=== PATIENT | female | born 1940 | race Caucasian/White ===

== ENCOUNTER 2023-02-05 10:39 | Emergency (ER) | payer MEDICARE, SELFPAY ==
--- NOTE | ~2023-02-05 | XR_ITS ---
EXAMINATION: XR CHEST CLINICAL INFORMATION: Chest trauma. COMPARISON: None available. TECHNIQUE: Frontal view of the chest was obtained. FINDINGS: The lungs show coarse interstitial markings bilaterally without focal infiltrate or pneumothorax. The heart and mediastinal structures are unremarkable. There is a moderate-sized hiatal hernia. XR/XR chest 1V IMPRESSION: No acute cardiopulmonary process. No overt evidence for acute traumatic injury.
--- NOTE | ~2023-02-05 | XR_ITS ---
EXAMINATION: Right clavicle and right humerus x-rays CLINICAL INFORMATION: Fall COMPARISON: None. TECHNIQUE: 2 views of the right humerus and 2 views of the right clavicle FINDINGS: Right humerus: The bones are osteopenic. No humeral fracture or dislocation. Nondisplaced distal clavicle fracture. The humeral head appears high with respect to the glenoid questionable for rotator cuff disease. There is arthritis at the acromioclavicular joint. The elbow joint is normal. Soft tissues are normal. Right clavicle: There is a nondisplaced fracture of the distal clavicle. This may be slightly comminuted. There is mild arthritis at the acromioclavicular joint. The bones are osteopenic. There is soft tissue swelling adjacent to the fracture. XR/XR clavicle RT IMPRESSION: Nondisplaced distal clavicle fracture. Arthritis at the acromioclavicular joint. High humeral head questionable for rotator cuff disease. Osteopenia.
--- NOTE | ~2023-02-05 | CT_ITS ---
EXAMINATION: CT HEAD WITHOUT CONTRAST CT CERVICAL SPINE WITHOUT CONTRAST CLINICAL INFORMATION: Status post head trauma COMPARISON: None TECHNIQUE: CT of the head and cervical spine were performed without intravenous contrast. Multiplanar reformats were rendered and reviewed. This CT examination was performed using dose optimization techniques as appropriate, variously including the following: *Automated exposure control *Adjustment of mA and/or kV according to patient size (this includes techniques or standardized protocols for targeted exams where dose is matched to indication/reason for exam; i.e. extremities or head) *Use of iterative reconstruction technique DLP: 621 mGy-cm. FINDINGS: CT head: No intracranial hemorrhage, large infarction, or mass lesion is seen. No extra-axial collection is appreciated. The ventricles and sulci are prominent due to global volume loss and there are patchy periventricular white matter changes as a sequela of microangiopathy. The visualized paranasal sinuses and mastoid air cells are clear. CT cervical spine: The cervical alignment is normal. The craniocervical junction is normal. The vertebral body heights are maintained. No cervical spine fracture is seen. There are multilevel degenerative changes with narrowing of C3-C4, C4-C5, C5-C6, C7-T1 without spondylolysis or listhesis. There is no spinal canal stenosis. Marginal spurring is present. The paraspinal soft tissues are within normal limits. The partially imaged lung apices reveal changes of emphysema and COPD with reticulation . CT/CT head/brain wo IV con IMPRESSION: CT HEAD: No acute intracranial finding. Sequela of microangiopathy and global volume loss CT CERVICAL SPINE: No cervical spine fracture or traumatic malalignment identified. Degenerative changes.
--- NOTE | ~2023-02-05 | XR_ITS ---
EXAMINATION: Right clavicle and right humerus x-rays CLINICAL INFORMATION: Fall COMPARISON: None. TECHNIQUE: 2 views of the right humerus and 2 views of the right clavicle FINDINGS: Right humerus: The bones are osteopenic. No humeral fracture or dislocation. Nondisplaced distal clavicle fracture. The humeral head appears high with respect to the glenoid questionable for rotator cuff disease. There is arthritis at the acromioclavicular joint. The elbow joint is normal. Soft tissues are normal. Right clavicle: There is a nondisplaced fracture of the distal clavicle. This may be slightly comminuted. There is mild arthritis at the acromioclavicular joint. The bones are osteopenic. There is soft tissue swelling adjacent to the fracture. XR/XR humerus RT IMPRESSION: Nondisplaced distal clavicle fracture. Arthritis at the acromioclavicular joint. High humeral head questionable for rotator cuff disease. Osteopenia.
--- NOTE | ~2023-02-05 | CT_ITS ---
EXAMINATION: CT HEAD WITHOUT CONTRAST CT CERVICAL SPINE WITHOUT CONTRAST CLINICAL INFORMATION: Status post head trauma COMPARISON: None TECHNIQUE: CT of the head and cervical spine were performed without intravenous contrast. Multiplanar reformats were rendered and reviewed. This CT examination was performed using dose optimization techniques as appropriate, variously including the following: *Automated exposure control *Adjustment of mA and/or kV according to patient size (this includes techniques or standardized protocols for targeted exams where dose is matched to indication/reason for exam; i.e. extremities or head) *Use of iterative reconstruction technique DLP: 621 mGy-cm. FINDINGS: CT head: No intracranial hemorrhage, large infarction, or mass lesion is seen. No extra-axial collection is appreciated. The ventricles and sulci are prominent due to global volume loss and there are patchy periventricular white matter changes as a sequela of microangiopathy. The visualized paranasal sinuses and mastoid air cells are clear. CT cervical spine: The cervical alignment is normal. The craniocervical junction is normal. The vertebral body heights are maintained. No cervical spine fracture is seen. There are multilevel degenerative changes with narrowing of C3-C4, C4-C5, C5-C6, C7-T1 without spondylolysis or listhesis. There is no spinal canal stenosis. Marginal spurring is present. The paraspinal soft tissues are within normal limits. The partially imaged lung apices reveal changes of emphysema and COPD with reticulation . CT/CT cervical spine wo IV con IMPRESSION: CT HEAD: No acute intracranial finding. Sequela of microangiopathy and global volume loss CT CERVICAL SPINE: No cervical spine fracture or traumatic malalignment identified. Degenerative changes.
--- NOTE | ~2023-02-05 | XR_ITS ---
EXAMINATION: XR SACRUM AND COCCYX CLINICAL INFORMATION: Fall COMPARISON: None available. TECHNIQUE: 2 views of the sacrum and 2 views of the coccyx were obtained. FINDINGS: Exam is limited due to overlying bowel gas and light film technique. No fracture is appreciated. The bones are osteopenic. There is mild anterior subluxation of L4 with respect L5. There are degenerative changes of the visualized lower lumbar spine and hip joints. XR/XR sacrum coccyx min 2V IMPRESSION: Limited exam. No fracture seen.
[2023-02-05 10:49] VITALS: BP 135/50; PULSE 67; O2SAT 96
[2023-02-05 11:14] VITALS: BP 133/61; PULSE 66; RESP 19; TEMP 36.8; O2SAT 96; BMI 18.6
--- OUTSIDE RECORDS SUMMARY | 2023-02-05 11:16 | XMS_ITS | Continuity of Care Document ---
Author Name Unknown Organization [facility] Address [address] [place] [address]- Care Team Providers Care Welding Technician Name Role Phone Mary SHAY, Bridgette Archibald Primary Care Physic payal [place] [facility] [place] 11/26/20 - 12/26/20 [facility] [address] [place] [address]- Attending Physician: Rubens Pinto Admitting Physician: AdmRubens herrera Referring Physician: AdmtrRubens Allergies, Adverse Reactions, Alerts Substance Reaction Severity Status Augmentin nausea Active Immunizations Given and Recorded Vaccine Date Status Refusal Reason SARS-CoV-2 (COVID-19) mRNA BNT-162b2 vac 08/16/20 Recorded SARS-CoV-2 (COVID-19) mRNA BNT-162b2 vac 07/26/20 Recorded influenza virus vaccine, inactivated 1 04/19/20 Gi mae influenza virus vaccine, inactivated 2 04/26/19 Gi mae influenza virus vaccine, inactivated 3 05/02/18 Gi mae influenza virus vaccine, inactivated 4 05/31/17 Gi mae influenza virus vaccine, inactivated 04/13/16 Give n influenza virus vaccine, inactivated 04/05/15 Give n influenza virus vaccine, inactivated 5 03/16/14 Gi mae influenza virus vaccine, inactivated 04/15/12 Give n tetanus/diphtheria/pertussis, acel(Tdap) 11/25/16 Given pneumococcal 13-valent vaccine 04/13/16 Given Zoster Vaccine Live 6 07/01/15 Given pneumococcal 23-valent vaccine 07/30/12 Given Influenza Inactive (IM) (oldterm) 7 04/28/08 Given Pneumococcal Vaccine (oldterm) 11/05/06 Given Tetanus Toxoid Vaccine (oldterm) 06/21/01 Given 1Result Comment: [facility]: [id number] 2Result Comment: [facility] [id number] 3Result Comment: [05/02/2018] [facility] # [id number] 4Result Comment: [05/31/2017] [facility] [id number] 5Result Comment: [03/16/2014] Dr. Duffy 6Result Comment: [07/01/2015] diluent [id number] 08/24/17 Merck 7Admin Note: rcvd elsewhere Medications Advair Diskus 250 mcg-50 mcg inhalation powder 1, puffs, Inhalation, 2 times a day, # 180 each, Refills 1, Tot. Refills 1, Maintenance, 10/03/20 12:43:00 EDT, Route to Pharmacy Electronically, [id number], [facility]/pharmacy #[id number], 160.5, cm, 04/19/20 11:16:00 EDT, Height, 55.6,... Start Date: 10/03/20 Stop Date: 04/01/21 Status: Ordered albuterol 0.083% inhalation solution 3 mL = 2.5 mg, Inhalation, Every 6 hours, DX: J45.909, # 60 each, 0 Refills, Maintenance, 08/25/19 10:27:00 EST, Solution, [facility]/pharmacy #[id number], 160.5, cm, 07/19/19 13:59:00 EST, Height, 55.6, kg, 03/15/19 15:53:00 EDT, Dry Weight Start Date: 08/25/19 Status: Ordered Bactrim DS 800 mg-160 mg oral tablet 1 tablet, By Mouth, Once, after procdeure today-, # 1 tablet, 0 Refills, Soft Stop, 12/24/20 12:01:00 EDT, Partial fill upon patient request if the prescription is for a schedule II opioid drug. Start Date: 12/24/20 Status: Ordered citalopram 20 mg oral tablet 20 mg, 1, tablet, By Mouth, Daily, # 90 tablet, Refills 1, Tot. Refills 1, Maintenance, 09/30/20 11:37:00 EDT, Route to Pharmacy Electronically, [facility]/pharmacy #[id number], 160.5, cm, 04/19/20 11:16:00 EDT, Height, 55.6, kg, 03/15/19 15:53:00 EDT, Dry Weight Start Date: 09/30/20 Status: Ordered diclofenac 1% topical gel 1 application, Topically, 4 times a day, PRN for pain, # 100 Gm, 0 Refills, Maintenance, 12/11/20 15:05:00 EDT, Gel, Partial fill upon patient request if the prescription is for a schedule II opioid drug. Start Date: 12/11/20 Status: Ordered Diltiazem CD Capsule 240 mg, By Mouth, Daily, Maintenance, 12/04/13 14:47:28 EDT Start Date: 12/04/13 Status: Ordered Eliquis 5 mg oral tablet 1 tablet = 5 mg, By Mouth, 2 times a day, # 60 tablet, 0 Refills, Maintenance, 10/03/20 11:30:00 EDT, Tablet, Partial fill upon patient request if the prescription is for a schedule II opioid drug. Start Date: 10/03/20 Status: Ordered famotidine 20 mg oral tablet 20 mg, 1, tablet, By Mouth, Daily at bedtime, # 90 tablet, Refills 0, Tot. Refills 0, Maintenance, 12/11/20 15:53:00 EDT, Route to Pharmacy Electronically, [facility]/pharmacy #[id number], Partial fill upon patient request if the prescription is for a schedule II... Start Date: 12/11/20 Status: Ordered loratadine 10 mg oral tablet 10 mg, 1, tablet, By Mouth, Daily, # 90 tablet, Refills 0, Tot. Refills 0, Maintenance, 11/28/20 9:28:00 EDT, Route to Pharmacy Electronically, [facility]/pharmacy #[id number], 160.5, cm, 11/26/20 11:39:00 EDT, Height, 55.6, kg, 03/15/19 15:53:00 EDT, Dry Weight Start Date: 11/28/20 Status: Ordered losartan 25 mg oral tablet 25 mg, 1, tablet, By Mouth, Daily, # 90 tablet, Refills 0, Tot. Refills 0, Maintenance, 11/29/20 14:27:00 EDT, Route to Pharmacy Electronically, [facility]/pharmacy #[id number], Appointment, 160.5, cm, 11/26/20 11:39:00 EDT, Height, 55.6, kg, 03/15/19 15:53:00 EDT... Start Date: 11/29/20 Status: Ordered metoprolol 25 mg oral tablet 25 mg, 1, tablet, By Mouth, 2 times a day, # 60 tablet, Refills 0, Tot. Refills 0, Maintenance, 12/11/20 15:48:00 EDT, Do Not Route, Partial fill upon patient request if the prescription is for a schedule II opioid drug. Start Date: 12/11/20 Status: Ordered Multivitamin Daily, 0 Refills, Maintenance, 12/11/20 15:05:00 EDT, Partial fill upon patient request if the prescription is for a schedule II opioid drug. Start Date: 12/11/20 Status: Ordered Protonix 40 mg oral delayed release tablet 1 tablet = 40 mg, By Mouth, Daily, # 90 tablet, 0 Refills, Maintenance, 09/30/20 14:59:00 EDT, EC Tablet, 160.5, cm, 04/19/20 11:16:00 EDT, Height, 55.6, kg, 03/15/19 15:53:00 EDT, Dry Weight Start Date: 09/30/20 Status: Ordered Spiriva HandiHaler 18 mcg inhalation capsule 1 capsule = 18 mcg, Inhalation, Daily, # 90 capsule, 0 Refills, Maintenance, 11/29/20 14:28:00 EDT,[facility]/pharmacy #[id number], 160.5, cm, 11/26/20 11:39:00 EDT, Height, 55.6, kg, 03/15/19 15:53:00 EDT, Dry Weight Start Date: 11/29/20 Status: Ordered Vitamin D3 = 1,000 International_Units, By Mouth, 0 Refills, Maintenance, 11/22/15 14:34:08 Start Date: 11/22/15 Status: Ordered Problem List Condition Effective Dates Status Health Status Inform ant Allergic rhinitis(Confirmed) Active Anxiety(Confirmed) Active Asthma(Confirmed) Active Atrial fibrillation and flutter(Confirmed) Active Hiatal hernia with gastroeso phageal reflux(Confirmed) Active H/O sebaceous cyst(Confirmed) Active Abdominal hernia(Confirmed) Active History of basal cell carcin essie of skin(Confirmed) 1 Active h/o Hypertension(Confirmed) Active 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 2013(Confirmed) 10/02/13 Active Osteoporosis(Confirmed) Active Hx of breast cancer(Confirmed) 2 10/2013 Active Wrist injury(Confirmed) Active 1Dermatologist is [place] [facility] 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, T2 N0, ER positive, [place] negative, 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 Social History Social History Type Response Smoking Status Former smoker; Tobac co user in household: No; Other: Quit 30 years ago; Started at 16 YO 1/2 pack daily; entered on: 05/31/17 Sex
--- OUTSIDE RECORDS SUMMARY | 2023-02-05 11:16 | XMS_ITS | Continuity of Care Document ---
Author Name Unknown Organization [facility] Address [address] [place] [address]- Care Team Providers Care Privacy Manager Name Role Phone Mary SHAY, Bridgette Archibald Primary Care Physic payal Encounter [facility] Date(s): 04/24/21 - 05/24/21 [facility] [address] [place] [address]- [place] Attending Physician: Rubens Pinto Admitting Physician: AdmRubens herrera Referring Physician: AdmtrRubens Allergies, Adverse Reactions, Alerts Substance Reaction Severity Status Augmentin nausea Active Immunizations Given and Recorded Vaccine Date Status Refusal Reason SARS-CoV-2 (COVID-19) mRNA BNT-162b2 vac 1 04/24/21 Given SARS-CoV-2 (COVID-19) mRNA BNT-162b2 vac 08/16/20 Recorded SARS-CoV-2 (COVID-19) mRNA BNT-162b2 vac 07/26/20 Recorded influenza virus vaccine, inactivated 2 04/24/21 Gi mae influenza virus vaccine, inactivated 3 04/19/20 Gi mae influenza virus vaccine, inactivated 4 04/26/19 Gi mae influenza virus vaccine, inactivated 5 05/02/18 Gi mae influenza virus vaccine, inactivated 6 05/31/17 Gi mae influenza virus vaccine, inactivated 04/13/16 Give n influenza virus vaccine, inactivated 04/05/15 Give n influenza virus vaccine, inactivated 7 03/16/14 Gi mae influenza virus vaccine, inactivated 04/15/12 Give n tetanus/diphtheria/pertussis, acel(Tdap) 11/25/16 Given pneumococcal 13-valent vaccine 04/13/16 Given Zoster Vaccine Live 8 07/01/15 Given pneumococcal 23-valent vaccine 2/9/13 Given Influenza Inactive (IM) (oldterm) 9 04/28/08 Given Pneumococcal Vaccine (oldterm) 11/05/06 Given Tetanus Toxoid Vaccine (oldterm) 06/21/01 Given 1Result Comment: [facility]: [id number] 2Result Comment: [facility]: [id number] 3Result Comment: [facility]: [id number] 4Result Comment: [facility] [id number] 5Result Comment: [05/02/2018] [facility] # [id number] 6Result Comment: [05/31/2017] [facility] [id number] 7Result Comment: [03/16/2014] Dr. Duffy 8Result Comment: [07/01/2015] diluent [id number] 08/24/17 Merck 9Admin Note: rcvd elsewhere Medications albuterol 0.083% inhalation solution 3 mL = 2.5 mg, Inhalation, Every 6 hours, DX: J45.909, # 60 each, 0 Refills, Maintenance, 08/25/19 10:27:00 EST, Solution, [facility]/pharmacy #[id number], 160.5, cm, 07/19/19 13:59:00 EST, Height, 55.6, kg, 03/15/19 15:53:00 EDT, Dry Weight Start Date: 08/25/19 Status: Ordered Azithromycin 5 Day Dose Pack 250 mg oral tablet 1 pack/packet, By Mouth, Once, # 6 tablet, 0 Refills, Soft Stop, 04/10/21 16:39:00 EDT, Tablet, [facility]/pharmacy #[id number], Partial fill upon patient request if the prescription is for a schedule II opioid drug., 160, cm, 01/20/21 14:22:00 EDT, Height, 63, kg... Start Date: 04/10/21 Status: Ordered Bactrim DS 800 mg-160 mg oral tablet 1 tablet, By Mouth, Once, after procdeure today-, # 1 tablet, 0 Refills, Soft Stop, 12/24/20 12:01:00 EDT, Partial fill upon patient request if the prescription is for a schedule II opioid drug. Start Date: 12/24/20 Status: Ordered cetirizine 10 mg oral tablet 1 tablet = 10 mg, By Mouth, Daily, # 30 tablet, 1 Refills, Maintenance, 04/22/21 15:35:00 EDT, Tablet, [facility]/pharmacy #[id number], Partial fill upon patient request if the prescription is for a schedule II opioid drug., 160, cm, 01/20/21 14:22:00 EDT, Height,... Start Date: 04/22/21 Status: Ordered citalopram 20 mg oral tablet 20 mg, 1, tablet, By Mouth, Daily, # 90 tablet, Refills 1, Tot. Refills 1, Maintenance, 03/26/21 14:13:00 EDT, Route to Pharmacy Electronically, [facility]/pharmacy #[id number], 160, cm, 01/20/21 14:22:00 EDT, Height, 63, kg, 12/12/20 13:26:00 EDT, Dry Weight Start Date: 03/26/21 Status: Ordered diclofenac 1% topical gel 1 [...] 12/11/20 15:53:00 EDT, [id number], Partial fill upon patient request if the prescription is for a schedule II... Start Date: 12/11/20 Status: Ordered loratadine 10 mg oral tablet 10 mg, 1, tablet, By Mouth, Daily, # 90 tablet, Refills 0, Tot. Refills 0, Maintenance, 11/28/20 9:28:00 EDT, [id number], 160.5, cm, 11/26/20 11:39:00 EDT, Height, 55.6, kg, 03/15/19 15:53:00 EDT, Dry Weight Start Date: 11/28/20 Status: Ordered losartan 25 mg oral tablet 25 mg, 1, tablet, By Mouth, Daily, # 90 tablet, Refills 1, Tot. Refills 1, Maintenance, 03/26/21 13:41:00 EDT, [id number] Appointment, 160, cm, 01/20/21 14:22:00 EDT, Height, 63, kg, 12/12/20 13:26:00 EDT, . Start Date: 03/26/21 Status: Ordered metoprolol 25 mg oral tablet [...] Daily, # 90 tablet, 0 Refills, Maintenance, 04/02/21 9:49:00 EDT, EC Tablet, 160, cm, 01/20/21 14:22:00 EDT, Height, 63, kg, 12/12/20 13:26:00 EDT, Dry Weight Start Date: 04/02/21 Status: Ordered Spiriva HandiHaler 18 mcg inhalation capsule 1 capsule = 18 mcg, Inhalation, Daily, # 90 capsule, 0 Refills, Maintenance, 04/09/21 14:31:00 EDT,[facility]/pharmacy #[id number], 160, cm, 01/20/21 14:22:00 EDT, Height, 63, kg, 12/12/20 13:26:00 EDT, Dry Weight Start Date: 04/09/21 Status: Ordered Vitamin D3 = 1,000 International_Units, [...] infiltrating ductal carcinoma, T2 N0, ER positive, [place]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 2013(Confirmed) 10/02/13 Active Osteoporosis(Confirmed) Active Hx of breast cancer(Confirmed) 2 10/2013 Active Wrist injury(Confirmed) Active 1Dermatologist is [place] [facility] 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, T2 N0, ER positive, [place] negative, 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 Social History Social History Type Response Smoking Status Former smoker; Tobac co user in household: No; Other: Quit 30 years ago; Started at 16 YO 1/2 pack daily; entered on: 05/31/17 Sex
--- OUTSIDE RECORDS SUMMARY | 2023-02-05 11:16 | XMS_ITS | Continuity of Care Document ---
Author Name Unknown Organization [facility] Address [address] [place] [address]- Care Team Providers Care Fruit And Vegetable Parer Name Role Phone Mary SHAY, Bridgette Archibald Primary Care Physic payal Encounter [facility] Date(s): 11/16/20 - 11/23/20 [facility] [address] [place] [address]- [place] Encounter Diagnosis Tick bite(Discharge Diagnosis) - 11/16/20 Attending Physician: Susu Chavez Referring Physician: Mary SHAY, Bridgette Archibald Allergies, Adverse Reactions, Alerts Substance Reaction Severity Status Augmentin nausea Active Immunizations Given and Recorded Vaccine Date Status Refusal Reason influenza virus vaccine, inactivated 1 04/19/20 Gi [...] Toxoid Vaccine (oldterm) 06/21/01 Given 1Result Comment: [facility]: [id number] 2Result Comment: [facility] [id number] 3Result Comment: [05/02/2018] [facility] # [id number] 4Result Comment: [05/31/2017] [facility] [id number] 5Result Comment: [03/16/2014] Dr. Duffy 6Result Comment: [07/01/2015] diluent [id number] 08/24/17 Merck 7Admin Note: rcvd elsewhere Medications Advair Diskus 250 mcg-50 mcg inhalation powder 1, puffs, Inhalation, 2 times a day, # 180 each, Refills 1, Tot. Refills 1, Maintenance, 10/03/20 12:43:00 EDT, Route to Pharmacy Electronically, [id number], [facility]/pharmacy #[id number], 160.5, cm, 04/19/20 11:16:00 EDT, Height, 55.6,... Start Date: 10/03/20 Stop Date: 04/01/21 Status: Ordered albuterol 0.083% inhalation solution 3 mL = 2.5 mg, Inhalation, Every 6 hours, DX: J45.909, # 60 each, 0 Refills, Maintenance, 08/25/19 10:27:00 EST, Solution, [facility]/pharmacy #[id number], 160.5, cm, 07/19/19 13:59:00 EST, Height, 55.6, kg, 03/15/19 15:53:00 EDT, Dry Weight Start Date: 08/25/19 Status: Ordered barium sulfate 2% oral suspension See Instructions, dispense two 450 mg bottles. Drink one 450 ml bottle at 8am, and one 450 mL bottle 90 minutes prior to procedure., # 900 mL, 0 Refills, Maintenance, 06/05/19 15:49:07 EST, [facility]/pharmacy #[id number], dispense two 450 mg bottles. ; Drink on... Start Date: 06/05/19 Status: Ordered Breo Ellipta 100 mcg-25 mcg/inh inhalation powder 1 puffs, Inhalation, Daily, # 30 each, 5 Refills, Maintenance, 06/04/20 9:31:00 EST, Powder, [id number], Substitute for Advair RX, 1 puffs Inhalation Daily, 160.5, cm, 04/19/20 11:16:00 EDT, Height, 55.6, kg, 03/15/19 15:53:00 EDT, Dry Weight Start Date: 06/04/20 Status: Ordered citalopram 20 mg oral tablet 20 mg, 1, tablet, By Mouth, Daily, # 90 tablet, Refills 1, Tot. Refills 1, Maintenance, 09/30/20 11:37:00 EDT, Route to Pharmacy Electronically, [facility]/pharmacy #[id number], 160.5, cm, 04/19/20 11:16:00 EDT, Height, 55.6, kg, 03/15/19 15:53:00 EDT, Dry Weight Start Date: 09/30/20 Status: Ordered Diltiazem CD Capsule 240 mg, By Mouth, Daily, Maintenance, 12/04/13 14:47:28 EDT Start Date: 12/04/13 Status: Ordered doxycycline hyclate 100 mg oral capsule See Instructions, 2 capsules by mouth for 1 dose, # 2 capsule, 0 Refills, Maintenance, 11/16/20 12:26:00 EDT, [facility]/pharmacy #[id number], Partial fill upon patient request if the prescription is for a schedule II opioid drug., 160.5, cm, 11/16/20 12:07:00 EDT... Start Date: 11/16/20 Status: Ordered Eliquis 5 mg oral tablet 1 tablet = 5 mg, By Mouth, 2 times a day, # 60 tablet, 0 Refills, Maintenance, 10/03/20 11:30:00 EDT, Tablet, Partial fill upon patient request if the prescription is for a schedule II opioid drug. Start Date: 10/03/20 Status: Ordered Home Medications Maintenance, 07/13/19 13:26:00 EST Start Date: 07/13/19 Status: Ordered loratadine 10 mg oral tablet 10 mg, 1, tablet, By Mouth, Daily, # 90 tablet, Refills 1, Tot. Refills 1, Maintenance, 04/19/20 12:01:00 EDT, Route to Pharmacy Electronically, [facility]/pharmacy #[id number], 160.5, cm, 04/19/20 11:16:00 EDT, Height, 55.6, kg, 03/15/19 15:53:00 EDT, Dry Weight Start Date: 04/19/20 Status: Ordered losartan 25 mg oral tablet 25 mg, 1, tablet, By Mouth, Daily, # 90 tablet, Refills 3, Tot. Refills 3, Maintenance, 12/20/19 15:58:00 EDT, Route to Pharmacy Electronically, [facility]), 160.5, cm, 12/12/19 13:19:00 EDT, Height, 55.6, kg, 03/15/19 15:53:00 EDT, Dry... Start Date: 12/20/19 Status: Ordered Multivitamin Daily, 0 Refills, Maintenance, 04/19/20 11:17:00 EDT Start Date: 04/19/20 Status: Ordered Protonix 40 mg oral delayed release tablet 1 tablet = 40 mg, By Mouth, Daily, # 90 tablet, 0 Refills, Maintenance, 09/30/20 14:59:00 EDT, EC Tablet, 160.5, cm, 04/19/20 11:16:00 EDT, Height, 55.6, kg, 03/15/19 15:53:00 EDT, Dry Weight Start Date: 09/30/20 Status: Ordered Spiriva HandiHaler 18 mcg inhalation capsule 1 capsule = 18 mcg, Inhalation, Daily, # 90 capsule, 1 Refills, Maintenance, 03/01/20 11:31:00 EDT,[facility]/pharmacy #[id number], 160.5, cm, 12/12/19 13:19:00 EDT, Height, 55.6, kg, 03/15/19 15:53:00 EDT, Dry Weight Start Date: 03/01/20 Status: Ordered Vitamin D3 = 1,000 International_Units, [...] infiltrating ductal carcinoma, T2 N0, ER positive, [place]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 2013(Confirmed) 10/02/13 Active Osteoporosis(Confirmed) Active Hx of breast cancer(Confirmed) 2 10/2013 Active Wrist injury(Confirmed) Active 1Dermatologist is GRANT Foster 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, T2 N0, ER positive, [place] negative, 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 Diagnosis Diagnosis Type Effective Dates Health Status Clini renetta Service Informant Tick bite Discharge Diagnosis 11/16/20 Vital Signs Most recent to oldest [Reference Range]: 1 Height 160.5 cm (11/16/20 12:07 PM) Oxygen Saturation [94-100 %] 96 % (11/16/20 12:07 PM) Pulse Rate [55-90 bpm] 127 bpm *H* (11/16/20 12:07 PM) Blood Pressure [90-138/55-84 mm Hg] 136/ 87mm Hg (11/16/20 12:07 PM) Respiratory Rate [16-30 br/min] 20 br/mi n (11/16/20 12:07 PM) Temperature [96.8-100.4 DegF] 97.4 DegF (11/16/20 12:07 PM) Mode of Delivery (Oxygen) Room air (11/16/20 12:07 PM) Blood pressure sites Arm, right (11/16/20 12:07 PM) Temperature Route Temporal (11/16/20 12:07 PM) Social History Social History Type Response Smoking Status Former smoker; Tobac co user in household: No; Other: Quit 30 years ago; Started at 16 YO 1/2 pack daily; entered on: 05/31/17 Sex
--- OUTSIDE RECORDS SUMMARY | 2023-02-05 11:16 | XMS_ITS | Continuity of Care Document ---
Author Name Unknown Organization [facility] Address [address] [place] [address]- Care Team Providers Care Cushion Assembler Name Role Phone Mary SHAY, Bridgette Archibald Primary Care Physic payal Encounter [facility] Date(s): 10/28/22 - 12/18/22 [facility] [address] [place] [address]- Attending Physician: Miguel Martinez MD Admitting Physician: Miguel Martinez MD Referring Physician: Bridgette Hernandez MD Allergies, Adverse Reactions, Alerts Substance Reaction Severity Status Augmentin nausea Active Immunizations Given and Recorded Vaccine Date Status Refusal Reason [id number] 12y+ bivalent booster vax 1 04/09/22 Given influenza virus vaccine, inactivated 2 04/09/22 Gi mae influenza virus vaccine, inactivated 3 04/24/21 Gi mae influenza virus vaccine, inactivated 4 04/19/20 Gi mae influenza virus vaccine, inactivated 5 04/26/19 Gi mae influenza virus vaccine, inactivated 6 05/02/18 Gi mae influenza virus vaccine, inactivated 7 05/31/17 Gi mae influenza virus vaccine, inactivated 04/13/16 Give n influenza virus vaccine, inactivated 04/05/15 Give n influenza virus vaccine, inactivated 8 03/16/14 Gi mae influenza virus vaccine, inactivated 04/15/12 Give n SARS-CoV-2 (COVID-19) mRNA-1273 vaccine 10/09/21 R ecorded SARS-CoV-2 (COVID-19) mRNA BNT-162b2 vac 9 04/24/21 Given SARS-CoV-2 (COVID-19) mRNA BNT-162b2 vac 08/16/20 Recorded SARS-CoV-2 (COVID-19) mRNA BNT-162b2 vac 07/26/20 Recorded tetanus/diphtheria/pertussis, acel(Tdap) 11/25/16 Given pneumococcal 13-valent vaccine 04/13/16 Given Zoster Vaccine Live 10 07/01/15 Given pneumococcal 23-valent vaccine 07/30/12 Given Influenza Inactive (IM) (oldterm) 11 04/28/08 Give n Pneumococcal Vaccine (oldterm) 11/05/06 Given Tetanus Toxoid Vaccine (oldterm) 06/21/01 Given 1Result Comment: [facility]: [address]-8 2Result Comment: [facility]: 05406-612-87 3Result Comment: [facility]: 04832-524-36 4Result Comment: [facility]: 86668-968-84 5Result Comment: [facility] [id number] 6Result Comment: [05/02/2018] [facility] # 23797-627-99 7Result Comment: [05/31/2017] [facility] 39656-142-61 8Result Comment: [03/16/2014] Dr. Duffy 9Result Comment: [facility]: [id number] 10Result Comment: [07/01/2015] diluent [id number] 08/24/17 [employer]ck 11Admin Note: rcvd elsewhere Medications Advair HFA 230 mcg / 21 mcg 2 puffs, Inhalation, 2 times a day, Use with spacer rinse mouth and throat after use, # 180 each, 0Refills, Maintenance, 10/26/22 15:34:00 EDT, Aerosol, Partial fill upon patient request if the prescription is for a schedule II opioid drug. Start Date: 10/26/22 Status: Ordered Aerochamber w/Mask (Large) See Instructions, # 1 each, Maintenance, For use with Advair HFA, 10/26/22 15:35:00 EDT, Supply Start Date: 10/26/22 Status: Ordered Albuterol (Eqv-Ventolin HFA) 90 mcg/inh inhalation aerosol 2 puffs, Inhalation, Every 6 hours, # 18 Gm, 1 Refills, Maintenance, 10/16/22 10:07:00 EDT, [id number], Partial fill upon patient request if the prescription is for a schedule II opioid drug., 2 puffs Inhalation Every 6 hours, 165, cm, 2... Start Date: 10/16/22 Status: Ordered amiodarone 200 mg oral tablet See Instructions, 1 tablet in morning, 0.5 tablet in evening, Refills 0, Maintenance, 10/14/22 3:02:00 EDT, Instructions Replace Required Details, Partial fill upon patient request if the prescription is for a schedule II opioid drug. Start Date: 10/14/22 Status: Ordered Bactrim DS 800 mg-160 mg oral tablet 1 tablet, By Mouth, Once, Administered after procedure - LOT [id number] EXP 01/2024, # 1 tablet, 0 Refills, Soft Stop, 11/24/22 13:51:00 EDT, Tablet, Partial fill upon patient request if the prescription is for a schedule II opioid drug. Start Date: 11/24/22 Status: Ordered benzonatate 100 mg oral capsule 1 capsule = 100 mg, By Mouth, 3 times a day, PRN Cough, 0 Refills, Maintenance, 10/26/22 15:32:00 EDT, Capsule, Partial fill upon patient request if the prescription is for a schedule II opioid drug. Start Date: 10/26/22 Status: Ordered Cardizem CD 180 mg/24 hours oral capsule, extended release 360 mg, 2, capsule, By Mouth, Daily, Refills 0, Maintenance, 10/26/22 16:39:00 EDT, Partial fill upon patient request if the prescription is for a schedule II opioid drug. Start Date: 10/26/22 Status: Ordered citalopram 20 mg oral tablet 1 tablet = 20 mg, By Mouth, Daily, TAKE 1 TABLET BY MOUTH EVERY DAY, # 90 tablet, 0 Refills, Maintenance, 12/15/22 9:34:00 EDT, Tablet, [id number], Partial fill upon patient request if the prescription is for a schedule II opioid drug., 165, c... Start Date: 12/15/22 Stop Date: 03/15/23 Status: Ordered Doxycycline Tablet 100 mg, By Mouth, Daily, Maintenance, 10/26/22 15:37:00 EDT Start Date: 10/26/22 Stop Date: 11/16/22 Status: Ordered Eliquis 5 mg oral tablet 1 tablet = 5 mg, By Mouth, 2 times a day, # 60 tablet, 5 Refills, Maintenance, 10/14/22 3:01:00 EDT, Tablet, Partial fill upon patient request if the prescription is for a schedule II opioid drug. Start Date: 10/14/22 Status: Ordered famotidine 20 mg oral tablet 20 mg, 1, tablet, By Mouth, 2 times a day, # 180 tablet, Refills 0, Maintenance, 10/14/22 3:02:00 EDT, Partial fill upon patient request if the prescription is for a schedule II opioid drug. Start Date: 10/14/22 Status: Ordered fluconazole 100 mg oral tablet 1 tablet = 100 mg, By Mouth, Daily, 0 Refills, Maintenance, 10/26/22 15:32:00 EDT, Tablet, Partial fill upon patient request if the prescription is for a schedule II opioid drug. Start Date: 10/26/22 Stop Date: 11/08/22 Status: Ordered gabapentin 100 mg oral capsule 1, capsule, By Mouth, 3 times a day, # 90 capsule, Refills 0, Maintenance, 11/17/22 8:17:00 EDT, Route to Pharmacy Electronically, [id number], 165, cm, 10/26/22 16:15:00 EDT, Height, 58.7, kg, 10/21/22 21:15:00 EDT, Dry Weight Start Date: 11/17/22 Stop Date: 12/17/22 Status: Ordered losartan 25 mg oral tablet 1 tablet = 25 mg, By Mouth, Daily, # 30 tablet, 0 Refills, Maintenance, 12/15/22 9:35:00 EDT, Tablet, [id number], Partial fill upon patient request if the prescription is for a schedule II opioid drug., 165, cm, 11/30/22 13:48:00 EDT, Height,... Start Date: 12/15/22 Status: Ordered Metoprolol Tartrate 50 mg oral tablet 0.5 tablet = 25 mg, By Mouth, 2 times a day, # 60 tablet, 0 Refills, Maintenance, 10/21/22 20:49:00EDT, Tablet, Partial fill upon patient request if the prescription is for a schedule II opioid drug. Start Date: 10/21/22 Status: Ordered montelukast 10 mg oral tablet 10 mg, 1, tablet, By Mouth, Daily, Refills 0, Maintenance, 10/14/22 3:02:00 EDT, Partial fill upon patient request if the prescription is for a schedule II opioid drug. Start Date: 10/14/22 Status: Ordered pantoprazole 40 mg oral delayed release tablet 1 tablet = 40 mg, By Mouth, Daily, TAKE 1 TABLET BY MOUTH EVERY DAY, # 90 tablet, 0 Refills, Maintenance, 12/15/22 9:36:00 EDT, EC Tablet, 165, cm, 11/30/22 13:48:00 EDT, Height, 58.7, kg, 10/21/22 21:15:00 EDT, Dry Weight Start Date: 12/15/22 Stop Date: 03/15/23 Status: Ordered Tiotropium See Instructions, Inhalation Daily use two inhalations of one capsule for each dose, 0 Refills, Maintenance, 10/26/22 16:39:00 EDT, Inhaler, Partial fill upon patient request if the prescription is for a schedule II opioid drug. Start Date: 10/26/22 Status: Ordered Problem List Condition Confirmation Course Effective Dates Status H ealth Status Informant Adenomatous polyp of colon Confirmed Active Allergic rhinitis Confirmed Active Anemia Confirmed Active Anxiety Confirmed Active Asthma Confirmed Active Atrial fibrillation and flutter Confirmed Active Hematuria Confirmed Active Oral thrush Confirmed Active Left-sided chest wall pain Confirmed Active CAP (community acquired pneumonia) Confirmed Active Cough Confirmed Active COVID-19 Confirmed Active Rotator cuff syndrome of left shoulder Confirmed Active Shortness of breath Confirmed Active Popliteal pain Confirmed Active Hiatal hernia with gastroesophageal reflux Confirmed Active H/O sebaceous cyst Confirmed Active Abdominal hernia Confirmed Active History of basal cell carcinoma of skin 1 Confirmed Active h/o Hypertension Confirmed Active RAMONA (acute kidney injury) Confirmed Active Bilateral nephrolithiasis Confirmed Active LUQ abdominal pain Confirmed Active Localized osteoarthritis of knee Confirmed Active Osteoarthritis of left knee Confirmed Active Osteoporosis Confirmed Active Breast pain, left Confirmed Active Hx of breast cancer 2 Confirmed 10/2013 Active Trigger middle finger Confirmed Active Bladder stones Confirmed Active Abnormal urine color Confirmed Active Wrist injury Confirmed Active 1Dermatologist is [place] [facility] 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, 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, ER positive, CA negative, 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 Social History Social History Type Response Smoking Status Former smoker; Tobac co user in household: No; Other: Quit 30 years ago; Started at 16 YO 1/2 pack daily; entered on: 05/31/17 Sex Patient Care team information Care Team Personnel Name: Luis Bojorquez RN Position: S RN Member Role: Primary Care Nurse Name: Mary SHAY, Bridgette Archibald Position: [facility] Physician - Primary Care Member Role: PCP Address: Address: [address] [place] [id number] Name: Paris De Jesus LPN Position: S RN Member Role: Primary Care Nurse Name: Keya Rollins RN Position: [facility] RN Member Role: Primary Care Nurse Name: Lisa Leone RN Position: [facility] RN Member Role: Primary Care Nurse Care Team Related Persons Name: AMY PENDLETON Address: [address] [place] [address] Name: ILDA DOWLING Address: [address] [place] [address]
--- OUTSIDE RECORDS SUMMARY | 2023-02-05 11:16 | XMS_ITS | Continuity of Care Document ---
Author Name Unknown Organization [facility] Address [address] [place] [address]- Care Team Providers Care Insurance Actuary Name Role Phone Mary SHAY, Bridgette Archibald Primary Care Physic payal Encounter [facility] [place] 10/01/22 - 10/08/22 [facility] [address] [place] [address]- Encounter Diagnosis Hematuria(Discharge Diagnosis) - 10/01/22 Bilateral nephrolithiasis(Discharge Diagnosis) - 10/01/22 Bladder stones(Discharge Diagnosis) - 10/01/22 Attending Physician: Mary SHAY, Bridgette Archibald Allergies, Adverse Reactions, Alerts Substance Reaction Severity Status Augmentin nausea Active Immunizations Given and Recorded Vaccine Date Status Refusal Reason [id number] 12y+ bivalent booster vax 1 04/09/22 Given [...] Toxoid Vaccine (oldterm) 06/21/01 Given 1Result Comment: [facility]: [id number] 2Result Comment: [facility] [place]: [id number] 3Result Comment: [facility] [place]: [id number] 4Result Comment: [facility] [place]: [id number] 5Result Comment: [facility] [id number] 6Result Comment: [05/02/2018] [facility] # [id number] 7Result Comment: [05/31/2017] [facility] [id number] 8Result Comment: [03/16/2014] Dr. Duffy 9Result Comment: [facility] [place]: [id number] 10Result Comment: [07/01/2015] diluent [id number] 08/24/17 Merck 11Admin Note: rcvd elsewhere Medications Advair Diskus 500 mcg-50 mcg inhalation powder 1, inhalation, Inhalation, 2 times a day, rinse mouth and throat after use j45.40, # 1 each, Refills 6, Tot. Refills 6, Maintenance, 01/19/22 12:24:00 EDT, Powder, Route to Pharmacy Electronically, [id number], [facility]/pharmacy #[id number]... Start Date: 01/19/22 Status: Ordered albuterol 0.083% inhalation solution 3 mL = 2.5 mg, Inhalation, Every 6 hours, DX: J45.909, # 60 each, 0 Refills, Maintenance, 08/25/19 10:27:00 EST, Solution, [facility]/pharmacy #[id number], 160.5, cm, 07/19/19 13:59:00 EST, Height, 55.6, kg, 03/15/19 15:53:00 EDT, Dry Weight Start Date: 08/25/19 Status: Ordered cetirizine 10 mg oral tablet 1 tablet = 10 mg, By Mouth, Daily, # 30 tablet, 1 Refills, Maintenance, 04/22/21 15:35:00 EDT, [id number], Partial fill upon patient request if the prescription is for a schedule II opioid drug., 160, cm, 01/20/21 14:22:00 EDT, Height,... Start Date: 04/22/21 Status: Ordered citalopram 20 mg oral tablet 20 mg, 1, tablet, By Mouth, Daily, # 90 tablet, Refills 1, Tot. Refills 1, Maintenance, 04/30/22 17:34:00 EST, Route to Pharmacy Electronically, [facility]/pharmacy #[id number], 166, cm, 02/13/22 15:01:00 EDT, Height, 63, kg, 12/12/20 13:26:00 EDT, Dry Weight Start Date: 04/30/22 Status: Ordered diclofenac 1% topical gel 1 application, Topically, 4 times a day, PRN for pain, # 100 Gm, 0 Refills, Maintenance, 12/11/20 15:05:00 EDT, Gel, Partial fill upon patient request if the prescription is for a schedule II opioid drug. Start Date: 12/11/20 Status: Ordered DilTIAZem (Eqv-Cardizem CD) 360 mg/24 hours oral capsule, extended release 1 capsule = 360 mg, By Mouth, Daily, # 90 capsule, 0 Refills, Maintenance, 11/19/21 16:31:00 EDT, [facility]/pharmacy #[id number], Partial fill upon patient request if the prescription is for a schedule II opioiddrug., 160, cm, 08/19/21 15:40:00 EST, Height, 63,... Start Date: 11/19/21 Status: Ordered Diltiazem CD Capsule 240 mg, [...] Daily at bedtime, # 90 tablet, Refills 1, Tot. Refills 1, Maintenance, 07/31/21 9:32:00 EST, Route to Pharmacy Electronically, [facility]/pharmacy #[id number], Partial fill upon patient request if the prescription is for a schedule II o... Start Date: 07/31/21 Status: Ordered Flonase 50 mcg/inh nasal spray 2 sprays, Nares, Both, Daily in AM, # 16 Gm, 6 Refills, Maintenance, 05/16/21 10:11:00 EST, [place], [facility]/pharmacy #[id number], Partial fill upon patient request if the prescription is for a schedule II opioid drug., 2 sprays Nares, Both Daily in AM, 160, cm,... Start Date: 05/16/21 Status: Ordered gabapentin 100 mg oral capsule 1, capsule, By Mouth, 3 times a day, # 90 capsule, Refills 0, Maintenance, 09/10/22 9:14:00 EDT, Route to Pharmacy Electronically, [id number], 166, cm, 08/31/22 11:19:00 EDT, Height, 63, kg, 12/12/20 13:26:00 EDT, Dry Weight Start Date: 09/10/22 Stop Date: 10/10/22 Status: Ordered loratadine 10 mg oral tablet 10 mg, 1, tablet, By Mouth, Daily, # 90 tablet, Refills 0, Tot. Refills 0, Maintenance, 11/27/21 9:50:00 EDT, Route to Pharmacy Electronically, [facility]/pharmacy #[id number], 160, cm, 08/19/21 15:40:00 EST, Height, 63, kg, 12/12/20 13:26:00 EDT, Dry Weight Start Date: 11/27/21 Status: Ordered losartan 25 mg oral tablet 25 mg, 1, tablet, By Mouth, Daily, # 90 tablet, Refills 1, Tot. Refills 1, Maintenance, 04/10/22 9:35:00 EDT, Route to Pharmacy Electronically, [facility]/pharmacy #[id number], Appointment, 166, cm, 02/13/22 15:01:00 EDT, Height, 63, kg, 12/12/20 13:26:00 EDT, Dry... Start Date: 04/10/22 Status: Ordered metoprolol 25 mg oral tablet 25 mg, 1, tablet, By Mouth, 2 times a day, # 60 tablet, Refills 0, Tot. Refills 0, Maintenance, 12/11/20 15:48:00 EDT, Do Not Route, Partial fill upon patient request if the prescription is for a schedule II opioid drug. Start Date: 12/11/20 Status: Ordered montelukast 10 mg oral tablet 1, tablet, By Mouth, Daily in PM, # 30 tablet, Refills 11, Route to Pharmacy Electronically, [id number], 160, cm, 08/19/21 15:40:00 EST, Height, 63, kg, 12/12/20 13:26:00 EDT, Dry Weight Start Date: 09/09/21 Status: Ordered Multivitamin Daily, 0 Refills, Maintenance, 12/11/20 15:05:00 EDT, Partial fill upon patient request if the prescription is for a schedule II opioid drug. Start Date: 12/11/20 Status: Ordered Protonix 40 mg oral delayed release tablet 1 tablet = 40 mg, By Mouth, Daily, # 90 tablet, 0 Refills, Maintenance, 09/16/22 11:00:00 EDT, EC Tablet, 166, cm, 08/31/22 11:19:00 EDT, Height, 63, kg, 12/12/20 13:26:00 EDT, Dry Weight Start Date: 09/16/22 Status: Ordered Spiriva HandiHaler 18 mcg inhalation capsule 1 capsule = 18 mcg, Inhalation, Daily, # 90 capsule, 1 Refills, Maintenance, 05/25/22 9:54:00 EST, [facility]/pharmacy #[id number], 166, cm, 02/13/22 15:01:00 EDT, Height, 63, kg, 12/12/20 13:26:00 EDT, Dry Weight Start Date: 05/25/22 Status: Ordered Vitamin D3 = 1,000 International_Units, By Mouth, 0 Refills, Maintenance, 11/22/15 14:34:08 Start Date: 11/22/15 Status: Ordered Problem List Condition Confirmation Course Effective Dates Status H ealth Status Informant Adenomatous polyp of colon Confirmed Active Allergic rhinitis Confirmed Active Anemia Confirmed Active Anxiety Confirmed Active Asthma Confirmed Active Atrial fibrillation and flutter Confirmed Active Hematuria Confirmed Active Left-sided chest wall pain Confirmed Active Rotator cuff syndrome of left shoulder Confirmed Active Popliteal pain Confirmed Active Hiatal hernia with gastroesophageal reflux Confirmed Active H/O sebaceous cyst Confirmed Active Abdominal hernia Confirmed Active History of basal cell carcinoma of skin 1 Confirmed Active h/o Hypertension Confirmed Active Bilateral nephrolithiasis Confirmed Active LUQ abdominal pain Confirmed Active Localized osteoarthritis of knee Confirmed Active Osteoarthritis of left knee Confirmed Active Osteoporosis Confirmed Active Breast pain, left Confirmed Active Hx of breast cancer 2 Confirmed 10/2013 Active Trigger middle finger Confirmed Active Bladder stones Confirmed Active Abnormal urine color Confirmed Active Wrist injury Confirmed Active 1Dermatologist is [facility] 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, 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, ER positive, CT negative, 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 Diagnosis Diagnosis Type Effective Dates Health Status Clinical Service Informant Hematuria Discharge Diagnosis 10/01/22 Bilateral nephrolithiasis Discharge Diagnosis 10/01/22 Bladder stones Discharge Diagnosis 10/01/22 Social History Social History Type Response Smoking Status Former smoker; Tobac co user in household: No; Other: Quit 30 years ago; Started at 16 YO 1/2 pack daily; entered on: 05/31/17 Sex Note * Hattie Lopes: PERFORM, SIGN, VERIFY Event Display: Patient Education/Instruction Authored Date: [id number] [facility] *[facility] Clinical Summary Name HATTIE ECHEVARRIA Age 82 Years 1940 PCP Mary SHAY, Bridgette Archibald PCP Visit Date 10/01/2022 13:00:00 Additional Instructions: Scheduled Appointments?? Future Appointments ?*[facility] ?[address],??[address] ?Phone:??--?Fax:??-- ?Appt. Date:??10/28/2022?1:00 PM ?Scheduled Provider:??Miguel Martinez MD ?[facility] ?[address]??[place],??[place],??[address] ?Phone:??[phone]?Fax:??-- ?Appt. Date:??12/24/2022?1:00 PM ?Scheduled Provider:??[facility] 4 ?*[facility] ?[address]??[place],??[place],??[address] ?Phone:??--?Fax:??-- ?Appt. Date:??12/24/2022?1:30 PM ?Scheduled Provider:??Dawson KELLEY , Whitney Joiner Follow-Up Instructions ?? Diagnosis Calculus of kidney; Hematuria, unspecified; Calculus in bladder Medications: Please continue your medications until treatment is completed or stopped by your provider. Discuss any questions related to medications with your provider. Medications to Continue with No Changes These medications were not printed or sent to your pharmacy Albuterol (albuterol 0.083% inhalation solution) 3 Milliliter Inhalation every 6 hours. DX: J45.909. Refills: 0. Next Dose: apixaban (Eliquis 5 mg oral tablet) 1 tab(s) Oral twice a day. Next Dose: Cetirizine (cetirizine 10 mg oral tablet) 1 tab(s) Oral Daily. Refills: 1. Next Dose: Cholecalciferol (Vitamin D3) 1,000 International Unit Oral. Next Dose: Citalopram (citalopram 20 mg oral tablet) 1 tab(s) Oral Daily. Refills: 1. Next Dose: Diclofenac Topical (diclofenac 1% topical gel) 1 filemon Topically 4 times a day as needed for pain. Next Dose: Diltiazem (DilTIAZem (Eqv-Cardizem CD) 360 mg/24 hours oral capsule, extended release) 1 capsule Oral Daily. Refills: 0. Next Dose: Diltiazem (Diltiazem CD Capsule) 240 Milligram Oral Daily. Next Dose: Famotidine (famotidine 20 mg oral tablet) 1 tab(s) Oral Daily at Bedtime. Refills: 1. Next Dose: Fluticasone Nasal (Flonase 50 mcg/inh nasal spray) 2 spray(s) Nares, Both Daily in the morning. Refills: 6. Next Dose: Fluticasone-Salmeterol (Advair Diskus 500 mcg-50 mcg inhalation powder) 1 inhalation Inhalation twice a day. rinse mouth and throat after use j45.40. Refills: 6. Next Dose: Gabapentin (gabapentin 100 mg oral capsule) 1 capsule Oral 3 times a day for 30 Days. Refills: 0. Next Dose: Loratadine (loratadine 10 mg oral tablet) 1 tab(s) Oral Daily. Refills: 0. Next Dose: Losartan (losartan 25 mg oral tablet) 1 tab(s) Oral Daily. Refills: 1. Next Dose: Metoprolol (metoprolol 25 mg oral tablet) 1 tab(s) Oral twice a day. Refills: 0. Next Dose: Montelukast (montelukast 10 mg oral tablet) 1 tab(s) Oral Daily in PM. Refills: 11. Next Dose: Multivitamin Daily. Next Dose: Pantoprazole (Protonix 40 mg oral delayed release tablet) 1 tab(s) Oral Daily. Refills: 0. Next Dose: Tiotropium (Spiriva HandiHaler 18 mcg inhalation capsule) 1 capsule Inhalation Daily. Refills: 1. Next Dose: Allergy Info:?? Augmentin Medications Given This Visit Future Orders ?No future orders Vital Signs Height Weight BMI Blood Pressure / Temperature Pulse Rate Respiratory Rate 02 Sat Mode of Delivery / You can now view a summary of your hospital visit from the comfort of your home through a free online portal called [employer]. [employer] is a website that allows you to securely view your medical information including discharge summary, medications and follow-up visits. ??You can alsosend a secure electronic message to your doctor???s office to request appointments, renew medications or just ask a question. You can enroll at [email or web address] or register during your next office visit. Disclaimer:?? The information provided is of a general nature and is intended to be used in conjunction with the recommendations and advice of your health care practitioner. ??Every effort has been made to ensure that the information provided is accurate and complete at the time it is provided to you however, as your needs change, or, as new ??information becomes available, different or additional instructions may be required. If you have questions, please consult with your primary care provider or pharmacist, as appropriate. ??This information is not intended to serve as substitution for assessment and evaluation by a qualified health care provider. If you do not have a primary care provider, you may find a [facility] provider by calling [facility] at [phone]. For information about the plan of care including goals and instructions for your diagnosis, please see the patient education orders section of this document. Patient Education Materials?? The content of this educational material or handout may have been modified, supplemented, or adapted from its original content and format to support your individualized medical care. Patient Care team information Care Team Personnel Name: Mary SHAY, Bridgette Archibald Position: S Primary Care Physician Member Role: PCP [facility]: [facility] [place] [place] [address] Care Team Related Persons Name: AMY PENDLETON Address: [address] [place] [address] Name: ILDA DOWLING Address: [address] [place] [address]
--- OUTSIDE RECORDS SUMMARY | 2023-02-05 11:16 | XMS_ITS | Continuity of Care Document ---
Author Name Unknown Organization [facility] Address [address] [place] [address]- Care Team Providers Care Siderographer Name Role Phone Mary SHAY, Bridgette Archibald Primary Care Physic payal Encounter [facility] [place] [place] Date(s): 02/23/20 - 03/24/[address] [address]- [facility] Attending Physician: AdmRubens herrera Admitting Physician: Admtr, [id number] Referring Physician: Admtr, [id number] Allergies, Adverse Reactions, Alerts Substance Reaction Severity Status Augmentin nausea Active Immunizations Given and Recorded Vaccine Date Status Refusal Reason influenza virus vaccine, inactivated 1 04/26/19 Gi mae influenza virus vaccine, inactivated 2 05/02/18 Gi mae influenza virus vaccine, inactivated 3 05/31/17 Gi mae influenza virus vaccine, inactivated 04/13/16 Give n influenza virus vaccine, inactivated 04/05/15 Give n influenza virus vaccine, inactivated 4 03/16/14 Gi mae influenza virus vaccine, inactivated 04/15/12 Give n tetanus/diphtheria/pertussis, acel(Tdap) 11/25/16 Given pneumococcal 13-valent vaccine 04/13/16 Given Zoster Vaccine Live 5 07/01/15 Given pneumococcal 23-valent vaccine 07/30/12 Given Influenza Inactive (IM) (oldterm) 6 04/28/08 Given Pneumococcal Vaccine (oldterm) 11/05/06 Given Tetanus Toxoid Vaccine (oldterm) 06/21/01 Given 1Result Comment: [facility] [id number] 2Result Comment: [05/02/2018] [facility] # [id number] 3Result Comment: [05/31/2017] [facility] [id number] 4Result Comment: [03/16/2014] Dr. Duffy 5Result Comment: [07/01/2015] diluent [id number] 08/24/17 Merck 6Admin Note: rcvd elsewhere Medications albuterol 0.083% inhalation solution 3 mL = 2.5 mg, Inhalation, Every 6 hours, DX: J45.909, # 60 each, 0 Refills, Maintenance, 08/25/19 10:27:00 EST, Solution, [facility]/pharmacy #[id number], 160.5, cm, 07/19/19 13:59:00 EST, Height, 55.6, kg, 03/15/19 15:53:00 EDT, Dry Weight Start Date: 08/25/19 Status: Ordered amiodarone 200 mg oral tablet 200 mg, 1, tablet, By Mouth, Daily, Prescribed by Dr. Car (Cardiology), # 90 tablet, Refills 0,Tot. Refills 0, Maintenance, 10/20/19 10:07:00 EDT, Route to Pharmacy Electronically, [facility]/pharmacy #[id number], 160.5, cm, 07/19/19 13:59:00 EST, Height, 55.... Start Date: 10/20/19 Status: Ordered Azithromycin 5 Day Dose Pack 250 mg oral tablet 1 pack/packet, By Mouth, Once, # 6 tablet, 0 Refills, Soft Stop, 08/23/19 16:55:00 EST, Tablet, [facility]/pharmacy #[id number], 160.5, cm, 07/19/19 13:59:00 EST, Height, 55.6, kg, 03/15/19 15:53:00 EDT, Dry Weight Start Date: 08/23/19 Status: Ordered barium sulfate 2% oral suspension See Instructions, dispense two 450 mg bottles. Drink one 450 ml bottle at 8am, and one 450 mL bottle 90 minutes prior to procedure., # 900 mL, 0 Refills, Maintenance, 06/05/19 15:49:07 EST, [facility]/pharmacy #[id number], dispense two 450 mg bottles. ; Drink on... Start Date: 06/05/19 Status: Ordered Breo Ellipta 100 mcg-25 mcg/inh inhalation powder 1 puffs, Inhalation, Daily, # 30 each, 5 Refills, Maintenance, 10/27/19 17:22:00 EDT, Powder, [facility]/pharmacy #[id number], Substitute for Advair RX, 1 puffs Inhalation Daily, 160.5, cm, 07/19/19 13:59:00 EST,Height, 55.6, kg, 03/15/19 15:53:00 EDT, Dry Weight Start Date: 10/27/19 Status: Ordered cartia 240 mg cartia 240 mg, Refills 0, Maintenance, for hear arythmia per patient, 02/05/20 15:59:00 EDT, Supply Start Date: 02/05/20 Status: Ordered citalopram 20 mg oral tablet 20 mg, 1, tablet, By Mouth, Daily, # 90 tablet, Refills 1, Tot. Refills 1, Maintenance, 09/14/19 10:00:00 EDT, Route to Pharmacy Electronically, [facility] ([place]), 160.5, cm, 07/19/19 13:59:00 EST, Height, 55.6, kg, 03/15/19 15:53:00 EDT, Dry... Start Date: 09/14/19 Status: Ordered diclofenac 1% topical gel 1 application, Topically, 4 times a day, # 100 Gm, 0 Refills, Maintenance, 03/15/19 16:17:19 EDT, Gel, 1 application Topically 4 times a day Start Date: 03/15/19 Status: Ordered Diltiazem CD Capsule 240 mg, By Mouth, Daily, Maintenance, 12/04/13 14:47:28 EDT Start Date: 12/04/13 Status: Ordered Home Medications Maintenance, 07/13/19 13:26:00 EST Start Date: 07/13/19 Status: Ordered losartan 25 mg oral tablet 25 mg, 1, tablet, By Mouth, Daily, # 90 tablet, Refills 3, Tot. Refills 3, Maintenance, 12/20/19 15:58:00 EDT, Route to Pharmacy Electronically, [facility] ([place]), 160.5, cm, 12/12/19 13:19:00 EDT, Height, 55.6, kg, 03/15/19 15:53:00 EDT, Dry... Start Date: 12/20/19 Status: Ordered magnesium magnesium, Refills 0, Maintenance, 02/05/20 15:57:00 EDT, Supply Start Date: 02/05/20 Status: Ordered Protonix 40 mg oral delayed release tablet 1 tablet = 40 mg, By Mouth, Daily, # 90 tablet, 2 Refills, Maintenance, 05/24/19 10:26:14 EST, EC Tablet, 160.5, cm, 03/15/19 15:53:53 EDT, Height, 55.6, kg, 03/15/19 15:53:53 EDT, Dry Weight Start Date: 05/24/19 Status: Ordered Spiriva HandiHaler 18 mcg inhalation capsule 1 capsule = 18 mcg, Inhalation, Daily, # 90 capsule, 1 Refills, Maintenance, 03/01/20 11:31:00 EDT,[facility]/pharmacy #[id number], 160.5, cm, 12/12/19 13:19:00 EDT, Height, 55.6, kg, 03/15/19 15:53:00 EDT, Dry Weight Start Date: 03/01/20 Status: Ordered Vitamin D3 = 1,000 International_Units, By Mouth, 0 Refills, Maintenance, 11/22/15 14:34:08 Start Date: 11/22/15 Status: Ordered Voltaren 1% topical gel 1 application, Topically, 4 times a day, # 100 Gm, 0 Refills, Maintenance, 07/13/19 17:07:00 EST, Gel, [facility]/pharmacy #[id number], 1 application Topically 4 times a day, 160.5, cm, 07/13/19 13:23:00 EST, Height, 55.6, kg, 03/15/19 15:53:00 EDT, Dry Weight Start Date: 07/13/19 Status: Ordered Xarelto 20 mg oral tablet See Instructions, 1 tablet by oral route every day with the evening meal, # 90 tablet, 1 Refills, Maintenance, 11/27/19 12:58:00 EDT, Tablet, [facility] ([place]), 160.5, cm, 07/19/19 13:59:00 EST, Height, 55.6, kg, 03/15/19 15:53:00 EDT, Dry We... Start Date: 11/27/19 Status: Ordered Xarelto 20 mg oral tablet See Instructions, 1 tablet by oral route every day with the evening meal, # 30 tablet, 0 Refills, Maintenance, 01/01/20 17:23:00 EDT, Tablet, [facility]/pharmacy #[id number], 160.5, cm, 12/12/19 13:19:00 EDT, Height, 55.6, kg, 03/15/19 15:53:00 EDT, Dry Weight Start Date: 01/01/20 Status: Ordered Problem List Condition Effective Dates [...] infiltrating ductal carcinoma, T2 N0, ER positive, RI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
--- OUTSIDE RECORDS SUMMARY | 2023-02-05 11:16 | XMS_ITS | Continuity of Care Document ---
Author Name Unknown Organization [facility] Address [address] [place] [address]- Care Team Providers Care Data Review Specialist Name Role Phone Mary SHAY, Bridgette Archibald Primary Care Physic payal Encounter [place] Date(s): 07/19/19 - 07/26/19 [facility] [address] [place] [address]- [facility] Encounter Diagnosis Hiatal hernia with gastroesophageal reflux(Discharge Diagnosis) - 07/19/19 History of basal cell carcinoma of skin(Discharge Diagnosis) - 07/19/19 Osteoporosis(Discharge Diagnosis) - 07/19/19 Anxiety(Discharge Diagnosis) - 07/19/19 Allergic rhinitis(Discharge Diagnosis) - 07/19/19 Cancer of lower-outer quadrant of female breast(Discharge Diagnosis) - 07/19/19 Asthma(Discharge Diagnosis) - 07/19/19 Atrial fibrillation and flutter(Discharge Diagnosis) - 07/19/19 Knee pain, left(Discharge Diagnosis) - 07/19/19 Attending Physician: Mary SHAY, Bridgette Archibald Allergies, [...] Vaccine (oldterm) 06/21/01 Given 1Result Comment: [facility] [id number] 2Result Comment: [05/02/2018] [facility] # [id number] 3Result Comment: [05/31/2017] [facility] [id number] 4Result Comment: [03/16/2014] Dr. uDffy 5Result Comment: [07/01/2015] diluent [id number] 08/24/17 Merck 6Admin Note: rcvd elsewhere Medications amiodarone 200 mg oral tablet 200 mg, 1, tablet, By Mouth, Daily, Prescribed by Dr. Car (Cardiology), # 90 tablet, Refills 0,Tot. Refills 0, Maintenance, 03/24/19 17:32:08 EDT, Route to Pharmacy Electronically, [id number], [facility] Start Date: 03/24/19 Stop Date: 06/24/20 Status: Ordered barium sulfate 2% oral suspension See Instructions, dispense two 450 mg bottles. Drink one 450 ml bottle at 8am, and one 450 mL bottle 90 minutes prior to procedure., # 900 mL, 0 Refills, Maintenance, 06/05/19 15:49:07 EST, [facility]/pharmacy #[id number], dispense two 450 mg bottles. ; Drink on... Start Date: 06/05/19 Status: Ordered Breo Ellipta 100 mcg-25 mcg/inh inhalation powder 1 puffs, Inhalation, Daily, # 30 each, 1 Refills, Maintenance, 07/12/19 15:53:00 EST, Powder, [facility], Substitute for Advair RX, 1 puffs Inhalation Daily, 160.5, cm, 05/25/19 12:48:00 EST, Height, 55.6, kg, 03/15/19 15:53:00 ED... Start Date: 07/12/19 Status: Ordered citalopram 20 mg oral tablet 20 mg, 1, tablet, By Mouth, Daily, # 90 tablet, Refills 1, Tot. Refills 1, Maintenance, 03/08/19 9:37:54 EDT, Route to Pharmacy Electronically, [id number], [facility] Start Date: 03/08/19 Status: Ordered diclofenac 1% topical gel 1 [...] EST Start Date: 07/13/19 Status: Ordered losartan 50 mg oral tablet 50 mg, 1, tablet, By Mouth, Daily, # 90 tablet, Refills 3, Tot. Refills 3, Maintenance, 07/13/18 16:42:32 EST, Route to Pharmacy Electronically, [id number], [facility] Start Date: 07/13/18 Stop Date: 07/08/19 Status: Ordered Protonix 40 mg oral delayed release tablet 1 tablet = 40 mg, By Mouth, Daily, # 90 tablet, 2 Refills, Maintenance, 05/24/19 10:26:14 EST, EC Tablet, 160.5, cm, 03/15/19 15:53:53 EDT, Height, 55.6, kg, 03/15/19 15:53:53 EDT, Dry Weight Start Date: 05/24/19 Status: Ordered Spiriva HandiHaler 18 mcg inhalation capsule 1 capsule = 18 mcg, Inhalation, Daily, # 90 capsule, 3 Refills, Maintenance, 07/19/19 14:49:00 EST,[facility] ([place]), 160.5, cm, 07/19/19 13:59:00 EST, Height, 55.6, kg, 03/15/19 15:53:00 EDT, Dry Weight Start Date: 07/19/19 Status: Ordered Vitamin D3 = 1,000 International_Units, By Mouth, 0 Refills, Maintenance, 11/22/15 14:34:08 Start Date: 11/22/15 Status: Ordered Voltaren 1% topical gel 1 application, Topically, 4 times a day, # 100 Gm, 0 Refills, Maintenance, 07/13/19 17:07:00 EST, Gel, [id number], 1 application Topically 4 times a day, 160.5, cm, 07/13/19 13:23:00 EST, Height, 55.6, kg, 03/15/19 15:53:00 EDT, Dry Weight Start Date: 07/13/19 Status: Ordered Xarelto 20 mg oral tablet See Instructions, 0 Refills, Maintenance, 01/17/14 13:47:05, Tablet Start Date: 01/17/14 Status: Ordered Problem List Condition Effective Dates Status Health Status Inform ant Allergic rhinitis(Confirmed) Active Anxiety(Confirmed) Active Asthma(Confirmed) Active Atrial fibrillation and flutter(Confirmed) Active Hiatal hernia with gastroeso phageal reflux(Confirmed) Active H/O sebaceous cyst(Confirmed) Active Abdominal hernia(Confirmed) Active History of basal cell carcin essie of skin(Confirmed) 1 Active h/o Hypertension(Confirmed) Active Cancer of lower-outer quadra nt of female breast(Confirmed) 10/02/13 Active Osteoporosis(Confirmed) Active Hx of breast cancer(Confirmed) 2 10/2013 Active Wrist injury(Confirmed) Active 1Dermatologist is [place] 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, T2 N0, ER positive, [place] negative, 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 Diagnosis Diagnosis Type Effective Dates Health Status Clinical Service Informant Allergic rhinitis Discharge Diagnosis 07/19/19 Anxiety Discharge Diagnosis 07/19/19 Asthma Discharge Diagnosis 07/19/19 Atrial fibrillation and flutter Discharge Diagnosis 07/19/19 Cancer of lower-outer quadrant of female breast Discharge Diagnosis 07/19/19 Hiatal hernia with gastroesophageal reflux Discharge Diagnosis 07/19/19 History of basal cell carcinoma of skin Discharge Diagnosis 07/19/19 Osteoporosis Discharge Diagnosis 07/19/19 Knee pain, left Discharge Diagnosis 07/19/19 Vital Signs Most recent to oldest [Reference Range]: 1 Height 160.5 cm (07/19/19 1:59 PM) Weight 55.9 kg (07/19/19 1:59 PM) Oxygen Saturation [94-100 %] 96 % (07/19/19 1:59 PM) Pulse Rate [55-90 bpm] 86 bpm (07/19/19 1:59 PM) Body Mass Index [18.5-24.99] 21.7 (07/19/19 1:59 PM) Blood Pressure [90-138/55-84 mm Hg] 114/ 72mm Hg (07/19/19 1:59 PM) Mode of Delivery (Oxygen) Room air (07/19/19 1:59 PM) Blood pressure sites Arm, right (07/19/19 1:59 PM) Weight Obtained Via Standing scale (07/19/19 1:59 PM) Social History Social History Type Response Smoking Status Former smoker; Tobac co user in household: No; Other: Quit 30 years ago; Started at 16 YO 1/2 pack daily; entered on: 05/31/17 Sex
--- OUTSIDE RECORDS SUMMARY | 2023-02-05 11:16 | XMS_ITS | Continuity of Care Document ---
Author Name Unknown Organization [facility] Address [address] [place] [id number]- Care Team Providers Care Range Rider Name Role Phone Mary SHAY, Bridgette Archibald Primary Care Physic payal [facility]counter [facility] Date(s): 02/05/20 - 03/27/[address] [address]- [facility] Discharge Disposition: A-D/C Home Attending Physician: Chase Zavala Admitting Physician: Chase Zavala Referring Physician: Chase Zavala Allergies, Adverse Reactions, Alerts Substance Reaction Severity [...] Toxoid Vaccine (oldterm) 06/21/01 Given 1Result Comment: [facility] [id number] 2Result Comment: [05/02/2018] [facility] # [id number] 3Result Comment: [05/31/2017] [facility] [id number] 4Result Comment: [03/16/2014] Dr. Duffy 5Result Comment: [07/01/2015] diluent [id number] 08/24/17 Merck 6Admin Note: rcvd elsewhere Medications albuterol 0.083% inhalation solution 3 mL = 2.5 mg, Inhalation, Every 6 hours, DX: J45.909, # 60 each, 0 Refills, Maintenance, 08/25/19 10:27:00 EST, Solution, [facility]/pharmacy #[id number], 160.5, cm, 07/19/19 13:59:00 EST, Height, 55.6, kg, 03/15/19 15:53:00 EDT, Dry Weight Start Date: 08/25/19 Status: Ordered amiodarone 200 mg oral tablet 200 mg, 1, tablet, By Mouth, Daily, Prescribed by Dr. Car (Cardiology), # 90 tablet, Refills 0,Tot. Refills 0, Maintenance, 10/20/19 10:07:00 EDT, Route to Pharmacy Electronically, [facility]/pharmacy #[id number], 160.5, cm, 07/19/19 13:59:00 EST, Height, 55.... Start Date: 10/20/19 Status: Ordered Azithromycin 5 Day Dose Pack 250 mg oral tablet 1 pack/packet, By Mouth, Once, # 6 tablet, 0 Refills, Soft Stop, 08/23/19 16:55:00 EST, Tablet, [facility]/pharmacy #[id number], 160.5, cm, 07/19/19 13:59:00 EST, Height, 55.6, kg, 03/15/19 15:53:00 EDT, Dry Weight Start Date: 08/23/19 Status: Ordered barium sulfate 2% oral suspension See Instructions, dispense two 450 mg bottles. Drink one 450 ml bottle at 8am, and one 450 mL bottle 90 minutes prior to procedure., # 900 mL, 0 Refills, Maintenance, 06/05/19 15:49:07 EST, [facility]/pharmacy #[id number], dispense two 450 mg bottles. ; Drink on... Start Date: 06/05/19 Status: Ordered Breo Ellipta 100 mcg-25 mcg/inh inhalation powder 1 puffs, Inhalation, Daily, # 30 each, 5 Refills, Maintenance, 10/27/19 17:22:00 EDT, Powder, [facility]/pharmacy #[id number], Substitute for Advair RX, 1 puffs [...] tablet, Refills 1, Tot. Refills 1, Maintenance, 03/27/20 10:19:00 EDT, Route to Pharmacy Electronically, [facility]/pharmacy #[id number], 160.5, cm, 12/12/19 13:19:00 EDT, Height, 55.6, kg, 03/15/19 15:53:00 EDT, Dry Weight Start Date: 03/27/20 Status: Ordered diclofenac 1% topical gel 1 [...] 12/20/19 15:58:00 EDT, Route to Pharmacy Electronically, [facility] ([place]), 160.5, cm, 12/12/19 13:19:00 EDT, Height, 55.6, kg, 03/15/19 15:53:00 EDT, Dry... Start Date: 12/20/19 Status: Ordered magnesium magnesium, Refills 0, Maintenance, 02/05/20 15:57:00 EDT, Supply Start Date: 02/05/20 Status: Ordered Protonix 40 mg oral delayed release tablet 1 tablet = 40 mg, By Mouth, Daily, # 90 tablet, 0 Refills, Maintenance, 03/27/20 11:13:00 EDT, EC Tablet, 160.5, cm, 12/12/19 13:19:00 EDT, Height, 55.6, kg, 03/15/19 15:53:00 EDT, Dry Weight Start Date: 03/27/20 Status: Ordered Spiriva HandiHaler 18 mcg inhalation capsule 1 capsule = 18 mcg, Inhalation, Daily, # 90 capsule, 1 Refills, Maintenance, 03/01/20 11:31:00 EDT,[facility]/pharmacy #[id number], 160.5, cm, 12/12/19 13:19:00 EDT, Height, 55.6, kg, 03/15/19 15:53:00 EDT, Dry Weight Start Date: 03/01/20 Status: Ordered Vitamin D3 = 1,000 International_Units, By Mouth, 0 Refills, Maintenance, 11/22/15 14:34:08 Start Date: 11/22/15 Status: Ordered Voltaren 1% topical gel 1 application, Topically, 4 times a day, # 100 Gm, 0 Refills, Maintenance, 07/13/19 17:07:00 EST, Gel, [facility]/pharmacy #[id number], 1 application Topically 4 times a day, 160.5, cm, 07/13/19 13:23:00 EST, Height, 55.6, kg, 03/15/19 15:53:00 EDT, Dry Weight Start Date: 07/13/19 Status: Ordered Xarelto 20 mg oral tablet See Instructions, 1 tablet by oral route every day with the evening meal, # 90 tablet, 1 Refills, Maintenance, 11/27/19 12:58:00 EDT, Tablet, [facility] ([place]), 160.5, cm, 07/19/19 13:59:00 EST, Height, 55.6, kg, 03/15/19 15:53:00 EDT, Dry We... Start Date: 11/27/19 Status: Ordered Xarelto 20 mg oral tablet See Instructions, 1 tablet by oral route every day with the evening meal, # 30 tablet, 0 Refills, Maintenance, 01/01/20 17:23:00 EDT, Tablet, [facility]/pharmacy #[id number], 160.5, cm, 12/12/19 13:19:00 EDT, [...] infiltrating ductal carcinoma, T2 N0, ER positive, [place]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 2013(Confirmed) 10/02/13 Active Osteoporosis(Confirmed) Active Hx of breast cancer(Confirmed) 2 10/2013 Active Wrist injury(Confirmed) Active 1[place]ermatologist [place] 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, T2 N0, ER positive, [place] negative, 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 Social History Social History Type Response Smoking Status Former smoker; Tobac co user in household: No; Other: Quit 30 years ago; Started at 16 YO 1/2 pack daily; entered on: 05/31/17 Sex
--- OUTSIDE RECORDS SUMMARY | 2023-02-05 11:16 | XMS_ITS | Continuity of Care Document ---
Author Name Unknown Organization [facility] ter Address [address] [place] [address]- Care Team Providers Care Implementation Analyst Name Role Phone Mary SHAY, Bridgette Archibald Primary Care Physic payal Encounter [facility] Date(s): 05/29/21 - 07/04/[address] [address]- Attending Physician: Renata Bowens MD Admitting Physician: Renata Bowens MD Referring Physician: Renata Bowens MD Allergies, Adverse Reactions, Alerts Substance Reaction [...] Live 8 07/01/15 Given pneumococcal 23-valent vaccine 07/30/12 Given Influenza Inactive (IM) (oldterm) 9 04/28/08 Given Pneumococcal Vaccine (oldterm) 11/05/06 Given Tetanus Toxoid Vaccine (oldterm) 06/21/01 Given 1Result Comment: [facility]: [id number] 2Result Comment: [facility]: [id number] 3Result Comment: [facility]: [id number] 4Result Comment: [facility] [id number] 5Result Comment: [05/02/2018] [facility] # [id number] 6Result Comment: [05/31/2017] [facility] [id number] 7Result Comment: [03/16/2014] Dr. Duffy 8Result Comment: [07/01/2015] diluent [id number] 08/24/17 Merck 9Admin Note: rcvd elsewhere Medications [...] 1 tablet, By Mouth, Once, after procdeure today-ec, # 1 tablet, 0 Refills, Soft Stop, [...] 12/11/20 15:53:00 EDT, [id number], Partial fill upon patient request if the prescription is for a schedule II... Start Date: 12/11/20 Status: Ordered loratadine 10 mg oral tablet 10 mg, 1, tablet, By Mouth, Daily, # 90 tablet, Refills 0, Tot. Refills 0, Maintenance, 11/28/20 9:28:00 EDT, [facility] to [facility] Electronically, [id number], 160.5, cm, 11/26/20 11:39:00 EDT, Height, 55.6, kg, 03/15/19 15:53:00 EDT, Dry Weight Start Date: 11/28/20 Status: Ordered losartan 25 mg oral tablet 25 mg, 1, tablet, By Mouth, Daily, # 90 tablet, Refills 1, Tot. Refills 1, Maintenance, 03/26/21 13:41:00 EDT, [facility] to Pharm[facility] Electronically, [id number], App[facility]ment, 160, cm, 01/20/21 14:22:00 EDT, [...] infiltrating ductal carcinoma, T2 N0, ER positive, [place]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 2013(Confirmed) 10/02/13 Active Osteoporosis(Confirmed) Active Hx of breast cancer(Confirmed) 2 10/2013 Active Wrist injury(Confirmed) Active 1[place] 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, T2 N0, ER positive, [place] negative, 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 Social History Social History Type Response Smoking Status Former smoker; Tobac co user in household: No; Other: Quit 30 years ago; Started at 16 YO 1/2 pack daily; entered on: 05/31/17 Sex
--- OUTSIDE RECORDS SUMMARY | 2023-02-05 11:16 | XMS_ITS | Continuity of Care Document ---
Author Name Unknown Organization [facility] Address [address] [place] [address]- Care Team Providers Care Temp Recruiter Name Role Phone Mary SHAY, Bridgette Archibald Primary Care Physic payal [place] [facility] [place]22 [facility] [address] [place] [address]- Attending Physician: Rubens Pinto Admitting Physician: AdmRubens herrera Referring Physician: Admtr, Chris8 Allergies, Adverse Reactions, Alerts Substance Reaction Severity Status Augmentin nausea Active Immunizations Given and Recorded Vaccine Date Status Refusal Reason SARS-CoV-2 (COVID-19) mRNA-1273 vaccine 10/09/21 R ecorded SARS-CoV-2 (COVID-19) mRNA BNT-162b2 vac 1 04/24/21 [...] Toxoid Vaccine (oldterm) 06/21/01 Given 1Result Comment: [facility]: [id number] 2Result Comment: [facility]: [id number] 3Result Comment: [facility]: [id number] 4Result Comment: [facility] [id number] 5Result Comment: [05/02/2018] [facility] # [id number] 6Result Comment: [05/31/2017] [facility] [id number] 7Result Comment: [03/16/2014] Dr. Duffy 8Result Comment: [07/01/2015] diluent [id number] 08/24/17 Merck 9Admin Note: rcvd elsewhere Medications Advair Diskus 500 mcg-50 mcg inhalation powder 1, inhalation, Inhalation, 2 times a day, rinse mouth and throat after use j45.40, # 1 each, Refills 6, Tot. Refills 6, Maintenance, 01/19/22 12:24:00 EDT, Powder, Route to Pharmacy Electronically, [id number], [facility]/pharmacy #7... Start Date: 01/19/22 Status: Ordered albuterol 0.083% inhalation solution 3 mL = 2.5 mg, Inhalation, Every 6 hours, DX: J45.909, # 60 each, 0 Refills, Maintenance, 08/25/19 10:27:00 EST, Solution, [facility]/pharmacy #[id number], 160.5, cm, 07/19/19 13:59:00 EST, Height, [...] 1 Refills, Maintenance, 04/22/21 15:35:00 EDT, Tablet, [facility]/pharmacy #[id number], Partial fill upon patient request if the prescription is for a schedule II opioid drug., 160, cm, 01/20/21 14:22:00 EDT, Height,... Start Date: 04/22/21 Status: Ordered citalopram 20 mg oral tablet 20 mg, 1, tablet, By Mouth, Daily, # 90 tablet, Refills 1, Tot. Refills 1, Maintenance, 10/13/21 12:28:00 EDT, [id number], cm, 08/19/21 15:40:00 EST, Height, 63, kg, 12/12/20 13:26:00 EDT, Dry Weight Start Date: 10/13/21 Status: Ordered diclofenac 1% topical gel 1 [...] capsule, 0 Refills, Maintenance, 11/19/21 16:31:00 EDT, [facility]/pharmacy #[id number], Partial fill upon patient request if [...] 07/31/21 9:32:00 EST, Route to Pharmacy Electronically, [facility]/pharmacy #[id number], Partial fill upon patient request if the prescription is for a schedule II o... Start Date: 07/31/21 Status: Ordered Flonase 50 mcg/inh nasal spray 2 sprays, Nares, Both, Daily in AM, # 16 Gm, 6 Refills, Maintenance, 05/16/21 10:11:00 EST, [place], [facility]/pharmacy #[id number], Partial fill upon patient request if the prescription is for a schedule II opioid drug., 2 sprays Nares, Both Daily in AM, 160, cm,... Start Date: 05/16/21 Status: Ordered loratadine 10 mg oral tablet 10 mg, 1, tablet, By Mouth, Daily, # 90 tablet, Refills 0, Tot. Refills 0, Maintenance, 11/27/21 9:50:00 EDT, Route to Pharmacy Electronically, [facility]/pharmacy #[id number], 160, cm, 08/19/21 15:40:00 EST, Height, 63, kg, 12/12/20 13:26:00 EDT, Dry Weight Start Date: 11/27/21 Status: Ordered losartan 25 mg oral tablet 25 mg, 1, tablet, By Mouth, Daily, # 90 tablet, Refills 0, Tot. Refills 0, Maintenance, 01/26/22 17:51:00 EDT, Route to Pharmacy Electronically, [facility]/pharmacy #[id number], Appointment, 166, cm, 12/18/21 13:30:00 EDT, Height, 63, kg, 12/12/20 13:26:00 EDT, . Start Date: 01/26/22 Status: Ordered metoprolol 25 mg oral tablet [...] tablet, Refills 11, Route to Pharmacy Electronically, [id number], 160, cm, 08/19/21 15:40:00 EST, Height, 63, [...] Daily, # 90 tablet, 0 Refills, Maintenance, 01/26/22 17:51:00 EDT, EC Tablet, 166, cm, 12/18/21 13:30:00 EDT, Height, 63, kg, 12/12/20 13:26:00 EDT, Dry Weight Start Date: 01/26/22 Status: Ordered Spiriva HandiHaler 18 mcg inhalation capsule 1 capsule = 18 mcg, Inhalation, Daily, # 90 capsule, 1 Refills, Maintenance, 10/23/21 14:10:00 EDT,[facility]/pharmacy #[id number], 160, cm, 08/19/21 15:40:00 EST, Height, 63, kg, 12/12/20 13:26:00 EDT, Dry Weight Start Date: 10/23/21 Status: Ordered Vitamin D3 = 1,000 International_Units, By Mouth, 0 Refills, Maintenance, 11/22/15 14:34:08 Start Date: 11/22/15 Status: Ordered Problem List Condition Effective Dates Status Health Status Inform ant Allergic rhinitis(Confirmed) Active Anxiety(Confirmed) Active Asthma(Confirmed) Active Atrial fibrillation and flutter(Confirmed) Active Rotator cuff syndrome of lef t shoulder(Confirmed) Active Hiatal hernia with gastroeso phageal reflux(Confirmed) Active H/O sebaceous cyst(Confirmed) Active Abdominal hernia(Confirmed) Active History of basal cell carcin essie of skin(Confirmed) 1 Active h/o Hypertension(Confirmed) Active LUQ abdominal pain(Confirmed) Active 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 2013(Confirmed) 10/02/13 Active Localized osteoarthritis of knee(Confirmed) Active Osteoporosis(Confirmed) Active Hx of breast cancer(Confirmed) 2 10/2013 Active Wrist injury(Confirmed) Active 1[place]erm[place]ologist [place] 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, T2 N0, ER positive, [place] negative, 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 Social History Social History Type Response Smoking Status Former smoker; Tobac co user in household: No; Other: Quit 30 years ago; Started at 16 YO 1/2 pack daily; entered on: 05/31/17 Sex Care Team Personnel Name: Mary SHAY, Bridgette Archibald Address: [address] [place] [id number]
--- OUTSIDE RECORDS SUMMARY | 2023-02-05 11:16 | XMS_ITS | Continuity of Care Document ---
Author Name Unknown Organization [facility] Address [address] [place] [address]- Care Team Providers Care Bead Wrapper Name Role Phone Mary SHAY, Bridgette Archibald Primary Care Physic payal [facility] - 07/07/20 [facility] [address] [place] [address]- Allergies, Adverse Reactions, Alerts Substance Reaction Severity [...] Vaccine (oldterm) 06/21/01 Given 1Result Comment: [facility]: [id number] 2Result Comment: [facility] [id number] 3Result Comment: [05/02/2018] [facility] # [id number] 4Result Comment: [05/31/2017] [facility] [id number] 5Result Comment: [03/16/2014] Dr. Duffy 6Result Comment: [07/01/2015] diluent [id number] 08/24/17 Merck 7Admin Note: rcvd elsewhere Medications albuterol 0.083% inhalation solution 3 mL = 2.5 mg, Inhalation, Every 6 hours, DX: J45.909, # 60 each, 0 Refills, Maintenance, 08/25/19 10:27:00 EST, Solution, [facility]/pharmacy #[id number], 160.5, cm, 07/19/19 13:59:00 EST, Height, 55.6, kg, 03/15/19 15:53:00 EDT, Dry Weight Start Date: 08/25/19 Status: Ordered amiodarone 200 mg oral tablet 200 mg, 1, tablet, By Mouth, Daily, Prescribed by Dr. Car (Cardiology), # 90 tablet, Refills 0,Tot. Refills 0, Maintenance, 10/20/19 10:07:00 EDT, Route to Pharmacy Electronically, [facility]/pharmacy #[id number], 160.5, cm, 07/19/19 13:59:00 EST, Height, 55.... Start Date: 10/20/19 Status: Ordered Azithromycin 5 Day Dose Pack 250 mg oral tablet 1 pack/packet, By Mouth, Once, # 6 tablet, 0 Refills, Soft Stop, 08/23/19 16:55:00 EST, Tablet, [facility]/pharmacy #[id number], 160.5, cm, 07/19/19 13:59:00 EST, Height, 55.6, kg, 03/15/19 15:53:00 EDT, Dry Weight Start Date: 08/23/19 Status: Ordered barium sulfate 2% oral suspension See Instructions, dispense two 450 mg bottles. Drink one 450 ml bottle at 8am, and one 450 mL bottle 90 minutes prior to procedure., # 900 mL, 0 Refills, Maintenance, 06/05/19 15:49:07 EST, [facility]/pharmacy #[id number], dispense two 450 mg bottles. ; Drink on... Start Date: 06/05/19 Status: Ordered Breo Ellipta 100 mcg-25 mcg/inh inhalation powder 1 puffs, Inhalation, Daily, # 30 each, 5 Refills, Maintenance, 06/04/20 9:31:00 EST, Powder, [facility]/pharmacy #[id number], Substitute for Advair RX, 1 puffs Inhalation Daily, 160.5, cm, 04/19/20 11:16:00 EDT, Height, 55.6, kg, 03/15/19 15:53:00 EDT, Dry Weight Start Date: 06/04/20 Status: Ordered cartia 240 mg cartia 240 mg, Refills 0, Maintenance, for hear arythmia per patient, 02/05/20 15:59:00 EDT, Supply Start Date: 02/05/20 Status: Ordered citalopram 20 mg oral tablet 20 mg, 1, tablet, By Mouth, Daily, # 90 tablet, Refills 1, Tot. Refills 1, Maintenance, 03/27/20 10:19:00 EDT, Route to Pharmacy Electronically, [facility]/pharmacy #[id number], 160.5, cm, 12/12/19 13:19:00 [...] 04/19/20 12:01:00 EDT, Route to Pharmacy Electronically, [facility]/pharmacy #[id number], 160.5, cm, 04/19/20 11:16:00 EDT, Height, 55.6, kg, 03/15/19 15:53:00 EDT, Dry Weight Start Date: 04/19/20 Status: Ordered losartan 25 mg oral tablet 25 mg, 1, tablet, By Mouth, Daily, # 90 tablet, Refills 3, Tot. Refills 3, Maintenance, 12/20/19 15:58:00 EDT, Route to Pharmacy Electronically, [facility] ([place]), 160.5, cm, 12/12/19 13:19:00 EDT, Height, 55.6, kg, 03/15/19 15:53:00 EDT, Dry... Start Date: 12/20/19 Status: Ordered magnesium magnesium, Refills 0, Maintenance, 02/05/20 15:57:00 EDT, Supply Start Date: 02/05/20 Status: Ordered Multivitamin Daily, 0 Refills, Maintenance, 04/19/20 11:17:00 EDT Start Date: 04/19/20 Status: Ordered Protonix 40 mg oral delayed release tablet 1 tablet = 40 mg, By Mouth, Daily, # 90 tablet, 0 Refills, Maintenance, 06/27/20 10:53:00 EST, EC Tablet, 160.5, cm, 04/19/20 11:16:00 EDT, Height, 55.6, kg, 03/15/19 15:53:00 EDT, Dry Weight Start Date: 06/27/20 Status: Ordered Spiriva HandiHaler 18 mcg inhalation capsule 1 capsule = 18 mcg, Inhalation, Daily, # 90 capsule, 1 Refills, Maintenance, 03/01/20 11:31:00 EDT,[facility]/pharmacy #[id number], 160.5, cm, 12/12/19 13:19:00 EDT, Height, 55.6, kg, 03/15/19 15:53:00 EDT, Dry Weight Start Date: 03/01/20 Status: Ordered Vitamin D3 = 1,000 International_Units, By Mouth, 0 Refills, Maintenance, 11/22/15 14:34:08 Start Date: 11/22/15 Status: Ordered Voltaren 1% topical gel 1 application, Topically, 4 times a day, # 100 Gm, 0 Refills, Maintenance, 07/13/19 17:07:00 EST, Gel, [facility]/pharmacy #[id number], 1 application Topically 4 times a day, 160.5, cm, 07/13/19 13:23:00 EST, Height, 55.6, kg, 03/15/19 15:53:00 EDT, Dry Weight Start Date: 07/13/19 Status: Ordered Xarelto 20 mg oral tablet See Instructions, 1 tablet by oral route every day with the evening meal, # 90 tablet, 1 Refills, Maintenance, 11/27/19 12:58:00 EDT, Tablet, [facility] ([place]), 160.5, cm, 07/19/19 13:59:00 EST, Height, 55.6, kg, 03/15/19 15:53:00 EDT, Dry We... Start Date: 11/27/19 Status: Ordered Xarelto 20 mg oral tablet See Instructions, 1 tablet by oral route every day with the evening meal, # 30 tablet, 0 Refills, Maintenance, 01/01/20 17:23:00 EDT, Tablet, [facility]/pharmacy #[id number], 160.5, cm, 12/12/19 13:19:00 [...] T2 N0, ER positive, [place]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 2013(Confirmed) 10/02/13 Active Osteoporosis(Confirmed) [...]
--- OUTSIDE RECORDS SUMMARY | 2023-02-05 11:16 | XMS_ITS | Continuity of Care Document ---
Author Name Unknown Organization [facility] Address [address] [place] [id number]- Care Team Providers Care Impact Retail Service Merchandiser Name Role Phone Mary SHAY, Bridgette October Cristela Primary Care Physic payal Encounter [facility] Date(s): 07/04/22 - 07/04/[address] [address]- Encounter Diagnosis Atrial flutter(Final) - 07/04/22 Discharge Disposition: A-D/C Home Attending Physician: Ben Benoit MD Admitting Physician: Ben Benoit MD Referring Physician: Not on Staff, Referring MD Allergies, Adverse Reactions, Alerts Substance Reaction Severity Status Augmentin nausea Active Immunizations Given and Recorded Vaccine Date Status Refusal Reason [id number] 12y+ bivalent booster vax 1 04/09/22 Given [...] Toxoid Vaccine (oldterm) 06/21/01 Given 1Result Comment: [facility]: [address]-2 2Result Comment: [facility]: 88695-706-02 3Result Comment: [facility]: [id number] 4Result Comment: [facility]: [id number] 5Result Comment: [facility] [id number] 6Result Comment: [05/02/2018] [facility] # [id number] 7Result Comment: [05/31/2017] [facility] [id number] 8Result Comment: [03/16/2014] Dr. Duffy 9Result Comment: [facility]: [id number] 10Result Comment: [07/01/2015] diluent [id number] 08/24/17 Merck 11Admin Note: rcvd elsewhere Medications Advair Diskus 500 mcg-50 mcg inhalation powder 1, inhalation, Inhalation, 2 times a day, rinse mouth and throat after use j45.40, # 1 each, Refills 6, Tot. Refills 6, Maintenance, 01/19/22 12:24:00 EDT, Powder, Route to Pharmacy Electronically, [id number], [facility]/pharmacy #7... Start Date: 01/19/22 Status: Ordered albuterol 0.083% inhalation solution 3 mL = 2.5 mg, Inhalation, Every 6 hours, DX: J45.909, # 60 each, 0 Refills, Maintenance, 08/25/19 10:27:00 EST, Solution, [facility]/pharmacy #[id number], 160.5, cm, 07/19/19 13:59:00 [...] 1 Refills, Maintenance, 04/22/21 15:35:00 EDT, Tablet, [facility]/pharmacy #[id number], Partial fill upon patient request if the prescription is for a schedule II opioid drug., 160, cm, 01/20/21 14:22:00 EDT, Height,... Start Date: 04/22/21 Status: Ordered citalopram 20 mg oral tablet 20 mg, 1, tablet, By Mouth, Daily, # 90 tablet, Refills 1, Tot. Refills 1, Maintenance, 04/30/22 17:34:00 EST, Route to Pharmacy Electronically, [facility]/pharmacy #[id number], 166, cm, 02/13/22 15:01:00 EDT, Height, [...] capsule, 0 Refills, Maintenance, 11/19/21 16:31:00 EDT, [facility]/pharmacy #[id number], Partial fill upon patient request [...] 07/31/21 9:32:00 EST, Route to Pharmacy Electronically, [facility]/pharmacy #[id number], Partial fill upon patient request if the prescription is for a schedule II o... Start Date: 07/31/21 Status: Ordered Flonase 50 mcg/inh nasal spray 2 sprays, Nares, Both, Daily in AM, # 16 Gm, 6 Refills, Maintenance, 05/16/21 10:11:00 EST, Alfred, [facility]/pharmacy #[id number], Partial fill upon patient request if the prescription is for a schedule II opioid drug., 2 sprays Nares, Both Daily in AM, 160, cm,... Start Date: 05/16/21 Status: Ordered gabapentin 100 mg oral capsule 100 mg, 1, capsule, By Mouth, 3 times a day, TAKE 1 CAPSULE BY MOUTH THREE TIMES A DAY, # 90 capsule, Refills 0, Tot. Refills 0, Maintenance, 06/08/22 13:54:00 EST, Route to Pharmacy Electronically, [facility]/pharmacy #[id number], 166, cm, 05/29/22 11:40:00 EST,... Start Date: 06/08/22 Stop Date: 07/08/22 Status: Ordered loratadine 10 mg oral tablet 10 mg, 1, tablet, By Mouth, Daily, # 90 tablet, Refills 0, Tot. Refills 0, Maintenance, 11/27/21 9:50:00 EDT, Route to Pharmacy Electronically, [facility]/pharmacy #[id number], 160, cm, 08/19/21 15:40:00 EST, Height, 63, kg, 12/12/20 13:26:00 EDT, Dry Weight Start Date: 11/27/21 Status: Ordered losartan 25 mg oral tablet 25 mg, 1, tablet, By Mouth, Daily, # 90 tablet, Refills 1, Tot. Refills 1, Maintenance, 04/10/22 9:35:00 EDT, [id number], 166, cm, 02/13/22 15:01:00 EDT, [...] tablet, Refills 11, Route to Pharmacy Electronically, [id number], 160, cm, 08/19/21 15:40:00 EST, Height, 63, [...] Daily, # 90 tablet, 0 Refills, Maintenance, 05/11/22 10:49:00 EST, EC Tablet, 166, cm, 02/13/22 15:01:00 EDT, Height, 63, kg, 12/12/20 13:26:00 EDT, Dry Weight Start Date: 05/11/22 Status: Ordered Spiriva HandiHaler 18 mcg inhalation capsule 1 capsule = 18 mcg, Inhalation, Daily, # 90 capsule, 1 Refills, Maintenance, 05/25/22 9:54:00 EST, [facility]/pharmacy #[id number], 166, cm, 02/13/22 15:01:00 EDT, Height, 63, kg, 12/12/20 13:26:00 EDT, Dry Weight Start Date: 05/25/22 Status: Ordered Vitamin D3 = 1,000 International_Units, By Mouth, 0 Refills, Maintenance, 11/22/15 14:34:08 Start Date: 11/22/15 Status: Ordered Problem List Condition Confirmation Course Effective Dates Status H ealth Status Informant Allergic rhinitis Confirmed Active Anxiety Confirmed Active Asthma Confirmed Active Atrial fibrillation and flutter Confirmed Active Left-sided chest wall pain Confirmed Active Rotator cuff syndrome of left shoulder Confirmed Active Hiatal hernia with gastroesophageal reflux Confirmed Active H/O sebaceous cyst Confirmed Active Abdominal hernia Confirmed Active History of basal cell carcinoma of skin 1 Confirmed Active h/o Hypertension Confirmed Active LUQ abdominal pain Confirmed Active 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 2013 Confirmed 10/02/13 Active Localized osteoarthritis of knee Confirmed Active Osteoporosis Confirmed Active Breast pain, left Confirmed Active Hx of breast cancer 2 Confirmed 10/2013 Active Wrist injury Confirmed Active 1Dermatologist is [place] [facility] 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, T2 N0, ER positive, [place] negative, 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 Vital Signs Most recent to oldest [Reference Range]: 1 2 3 Oxygen Saturation [94-100 %] 97 % (07/04/22 10:51 PM) 98 % (07/04/22 9:13 PM) 98 % (07/04/22 7:15 PM) Pulse Rate [55-90 bpm] 93 bpm *H* (07/04/22 10:51 PM) 94 bpm *H* (07/04/22 9:13 PM) 97 bpm *H* (07/04/22 7:15 PM) Blood Pressure [90-138/55-84 mm Hg] 144/85mm Hg *H* (07/04/22 10:51 PM) 117/57mm Hg (07/04/22 9:13 PM) 130/75mm Hg (07/04/22 7:15 PM) Respiratory Rate [16-30 br/min] 15 br/min *L* (07/04/22 10:51 PM) 24 br/min (07/04/22 9:13 PM) 18 br/min (07/04/22 7:15 PM) Temperature [96.8-100.4 DegF] 98.0 DegF (07/04/22 7:15 PM) Mode of Delivery (Oxygen) Room air (07/04/22 10:51 PM) Room air (07/04/22 9:13 PM) Room air (07/04/22 7:15 PM) Blood pressure sites Arm, right (07/04/22 10:51 PM) Arm, right (07/04/22 9:13 PM) Arm, right (07/04/22 7:15 PM) Temperature Route Oral (07/04/22 7:15 PM) Social History Social History Type Response Smoking Status Former smoker; Tobac co user in household: No; Other: Quit 30 years ago; Started at 16 YO 1/2 pack daily; entered on: 05/31/17 Sex Note * Bridgette Lackey MD: PERFORM Event Display: Patient Education Leaflets Authored Date: Atrial Flutter ?? Atrial Flutter - Video Atrial flutter is when the upper chambers of the heart beat too fast. Learn how it happens, and howit can be treated. To view the video go to this web address: [email or web address] Or, scan this QR code with your smart phone Last Reviewed Date: 2019 ?? 8983-2384 [employer]. All rights reserved. This information is not intended as a substitute for professional medical care. Always follow your healthcare professional's instructions. ?? * Bridgette Lackey MD: PERFORM Event Display: Patient Education Leaflets Authored Date: Atrial Flutter ?? [id number] Atrial Flutter Atrial flutter??means that your upper heart chambers (atria)??are ??beating very fast. It is causedby a problem in the electrical pathways of the heart muscle. It can be a sign of heart disease or other health problems that affect your heart. Palpitations are the most common symptom of atrial flutter. This is the feeling that your heart is fluttering or beating fast or hard. When your heart beats too fast, it doesn???t pump blood very well. This can cause other symptoms. These include: ??? Anxiety ??? Tiredness (fatigue) ??? Shortness of breath ??? Chest pain ??? Dizziness ??? Fainting Some people have no symptoms while they are in atrial flutter. If this is the first time you???ve had atrial flutter, and you don???t have heart or lung disease, it may never happen again. But in most cases, atrial flutter comes and goes. It can last from a few hours to a couple of days. Sometimes the atrial flutter doesn???t ever go away. This is chronic atrial flutter. Atrial flutter may be caused by heart disease. It may also be caused by other conditions that affect the heart: ??? Coronary artery disease (arteriosclerosis). This is also sometimes called blocked arteries. ???High blood pressure ??? Disease of the heart valves ??? Enlarged heart ??? Heart failure Atrial flutter can occur without heart disease. This may be because of: ??? Overactive thyroid (hyperthyroid) ??? Chronic lung disease (COPD, emphysema, or bronchitis) ???Alcohol??use ??? Drugs or medicines that stimulate the heart. These include cocaine, amphetamines, diet pills, some decongestant cold medicines, caffeine, and nicotine. ??? Infection ??? Obesity ??? Sleep apnea Treating or removing these causes will make it more likely that treatment for atrial flutter will work. It will also make it less likely that atrial flutter will come back. Atrial flutter can happen along with another heart rhythm problem called atrial fibrillation. The risk for stroke is higher with these conditions. Getting treatment can reduce your risk. Home care Follow these guidelines when caring for yourself at home: ??? Go back to your usual activities as soon as you feel back to normal. ??? If you smoke, stop smoking. Talk with your healthcare provider or call a local stop-smoking program for help. ??? Don???t take drugs or medicines that stimulate your heart. These include cocaine, amphetamines, diet pills, some decongestant cold medicines, caffeine, and nicotine. ??? Your provider may have prescribed medicine to stop atrial flutter from coming back. Take this medicine exactly as directed. Some medicines must be taken every day to work as they should. They aren't taken just when you have symptoms. ??? Your provider may also have prescribed a blood- thinning medicine called warfarin. This lowers your risk for stroke. Have your blood tested regularly as advised by your healthcare provider. This will help make sure the dose is right for you. Other blood thinning medicines don't need regular testing. ?? Follow-up care Follow up with your healthcare provider, or as advised. ?? When to seek medical advice Call your healthcare provider right away if any of these occur: ??? Swelling??in either leg ??? Unexpected weight gain ?? Call 911 This is the fastest and safest way to get to the emergency department. The paramedics can also start treatment on the way to the hospital, if needed. Call 911, or seek immediate medical attention, if any of the following occur: ??? Shortness of breath gets worse ??? Feeling lightheaded, faint, or dizzy ??? Bleeding that is not easily controlled ??? A heartbeat that is very rapid, slow, or irregular compared with your normal heartbeat ??? Chest pain or pressure ??? Extreme drowsiness or confusion ??? Weakness of an arm or leg or one side of the face ??? Trouble speaking or seeing ?? Last Reviewed Date: 2019 ?? 4967-6269 [employer]. All rights reserved. This information is not intended as a substitute for professional medical care. Always follow your healthcare professional's instructions. ?? Patient Care team information Care Team Personnel Name: Bridgette Hernandez MD Position: [facility] Primary Care Physician Member Role: PCP Address: Address: [address] [place] [id number]- Name: Ben Benoit MD Position: [facility] ED Medicine MD Member Role: Admitting Physician Address: Address: [address] [place] [id number]- Name: Bridgette Lackey MD Position: [facility] Resident Member Role: ED Resident Address: Address: [address] [place] [id number]- Name: Janae Williamson Position: [facility] ED TA [facility] Name: Tan Romero RN Position: [facility] ED RN W/OE and Tasks Member Role: Patient Care Provider Care Team Related Persons Name: ILDA DOWLING Address: [address] [place] [address]
--- OUTSIDE RECORDS SUMMARY | 2023-02-05 11:16 | XMS_ITS | Continuity of Care Document ---
Author Name Unknown Organization [facility] Address [address] [place] [address]- Care Team Providers Care Bullard Machine Operator Name Role Phone Mary SHAY, Bridgette Archibald Primary Care Physic payal Encounter [facility] Date(s): 09/28/22 - 10/28/22 [facility] [address] [place] [address]- Allergies, Adverse Reactions, Alerts Substance Reaction Severity Status Augmentin nausea Active Immunizations Given and Recorded Vaccine Date Status Refusal Reason [id number] 12y+ bivalent booster vax 1 04/09/22 Given [...] Toxoid Vaccine (oldterm) 06/21/01 Given 1Result Comment: [facility]: [id number] 2Result Comment: [facility]: 90677-300-44 3Result Comment: [facility]: 92976-935-18 4Result Comment: [facility]: 13782-318-13 5Result Comment: [facility] [id number] 6Result Comment: [05/02/2018] [facility] # [id number] 7Result Comment: [05/31/2017] [facility] [id number] 8Result Comment: [03/16/2014] Dr. Duffy 9Result Comment: [facility]: [id number] 10Result Comment: [07/01/2015] diluent [id number] 08/24/17 Merck 11Admin Note: rcvd elsewhere Medications [...] Gm, 1 Refills, Maintenance, 10/16/22 10:07:00 EDT, [facility]/pharmacy #[id number], Partial fill upon patient request [...] opioid drug. Start Date: 10/14/22 Status: Ordered benzonatate 100 mg oral capsule [...] Status: Ordered citalopram 20 mg oral tablet TAKE 1 TABLET BY MOUTH EVERY DAY Start Date: 10/14/22 Status: Ordered Doxycycline Tablet 100 mg, By [...] capsule 100 mg, 1, capsule, By Mouth, 2 times a day, TAKE 1 CAPSULE BY MOUTH 3 TIMES A DAY FOR 30 DAYS Start Date: 10/14/22 Status: Ordered losartan 25 mg oral tablet 1 tablet = 25 mg, By Mouth, Daily, # 30 tablet, 0 Refills, Maintenance, 10/14/22 3:02:00 EDT, Tablet, Partial fill upon patient request if the prescription is for a schedule II opioid drug. 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 Social History Social History Type Response Smoking Status Former smoker; Tobac co user in household: No; Other: Quit 30 years ago; Started at 16 YO 1/2 pack daily; entered on: 05/31/17 Sex Patient Care team information Care Team Personnel Name: Luis Bojorquez RN Position: [facility] RN Member Role: Primary Care Nurse Name: Mary SHAY, Bridgette Archibald Position: [facility] Primary Care Physician Member Role: PCP Address: Address: [address] [place] [address] Name: Paris De Jesus LPN Position: S RN Member Role: Primary Care Nurse Name: Keya Rollins RN Position: S RN Member Role: Primary Care Nurse Name: Lisa Leone RN Position: S RN Member Role: Primary Care Nurse Care Team Related Persons Name: AMY PENDLETON Address: [address] [place] [address] Name: ILDA DOWLING Address: [address] [place] [address]
--- OUTSIDE RECORDS SUMMARY | 2023-02-05 11:16 | XMS_ITS | Continuity of Care Document ---
Author Name Unknown Organization [facility] Address [address] [place] [address]- Care Team Providers Care Fisheries Diver Name Role Phone Mary SHAY, Bridgette Archibald Primary Care Physic payal Encounter [facility] [place](s): 09/23/22 - 10/23/22 [facility] [address] [place] [address]- Allergies, Adverse Reactions, Alerts Substance Reaction Severity Status Augmentin nausea Active Immunizations Given and Recorded Vaccine Date Status Refusal Reason [id number] 12y+ bivalent booster vax 1 04/09/22 Given [...] Vaccine (oldterm) 06/21/01 Given 1Result Comment: [facility] [place] [id number] 2Result Comment: [facility] [place] [id number] 3Result Comment: [facility] [place] [id number] 4Result Comment: [facility] [place]: [id number] 5Result Comment: [facility] [place] [id number] 6Result Comment: [05/02/2018] [facility] [place] # [id number] 7Result Comment: [05/31/2017] [facility] [place] [id number] 8Result Comment: [03/16/2014] Dr. Duffy 9Result Comment: [facility] [place]: [id number] 10Result Comment: [07/01/2015] diluent [id number] 08/24/17 Merck 11Admin Note: rcvd elsewhere Medications Advair Diskus 500 mcg-50 mcg inhalation powder 1, inhalation, Inhalation, 2 times a day, rinse mouth and throat after use, Refills 0, Maintenance,10/14/22 3:02:00 EDT, Powder Start Date: 10/14/22 Status: Ordered Albuterol (Eqv-Ventolin HFA) 90 mcg/inh inhalation aerosol 2 puffs, Inhalation, Every 6 hours, # 18 Gm, 1 Refills, Maintenance, 10/16/22 10:07:00 EDT, [facility]/pharmacy #[id number], Partial fill upon patient request if the prescription is for a schedule II opioid drug., 2 puffs Inhalation Every 6 hours, 165, cm, ... Start Date: 10/16/22 Status: Ordered amiodarone 200 mg oral tablet See Instructions, 1 tablet in morning, 0.5 tablet in evening, Refills 0, Maintenance, 10/14/22 3:02:00 EDT, Instructions Replace Required Details, Partial fill upon patient request if the prescription is for a schedule II opioid drug. Start Date: 10/14/22 Status: Ordered citalopram 20 mg oral tablet TAKE 1 TABLET BY MOUTH EVERY DAY Start Date: 10/14/22 Status: Ordered DilTIAZem (Eqv-Cardizem CD) 360 mg/24 hours oral capsule, extended release 0 Refills, Maintenance, 10/14/22 3:02:00 EDT, Partial fill upon patient request if the prescriptionis for a schedule II opioid drug. Start Date: 10/14/22 Status: Ordered Eliquis 5 mg oral tablet [...] opioid drug. Start Date: 10/14/22 Status: Ordered gabapentin 100 mg oral capsule [...] opioid drug. Start Date: 10/14/22 Status: Ordered nystatin 496930 u/ml oral suspension 5 mL = 500,000 units, By Mouth, 4 times a day, for 7 days, swish and swallow, # 140 mL, 0 Refills, Acute 10/26/22 17:21:00 EDT, 10/19/22 17:21:00 EDT, Suspension, [facility]/pharmacy #[id number], Partial fill upon patient request if the prescription is for a sched... Start Date: 10/19/22 Stop Date: 10/26/22 Status: Ordered pantoprazole 40 mg oral delayed release tablet TAKE 1 TABLET BY MOUTH EVERY DAY Start Date: 10/14/22 Status: Ordered Spiriva HandiHaler 18 mcg inhalation capsule 0 Refills, Maintenance, 10/14/22 3:02:00 EDT, Partial fill upon patient request if the prescriptionis for a schedule II opioid drug. 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, ER positive, [place] negative, 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 Social History Social History Type Response Smoking Status Former smoker; Tobac co user in household: No; Other: Quit 30 years ago; Started at 16 YO 1/2 pack daily; entered on: 05/31/17 Sex Patient Care team information Care Team Personnel Name: Luis Bojorquez RN Position: [facility] RN Member Role: Primary Care Nurse Name: Mary SHAY, Bridgette Archibald Position: [facility] Primary Care Physician Member Role: PCP Address: [facility] [place] [address]- Name: Paris De Jesus LPN Position: [facility] RN Member Role: Primary Care Nurse Name: Keya Rollins RN Position: [facility] RN Member Role: Primary Care Nurse Name: Lisa Leone RN Position: [facility] RN Member Role: Primary Care Nurse Care Team Related Persons Name: AMY PENDLETON Address: [address] [place] [address] Name: ILDA DOWLING Address: [address] [place] [address]
--- OUTSIDE RECORDS SUMMARY | 2023-02-05 11:16 | XMS_ITS | Continuity of Care Document ---
Author Name Unknown Organization [facility] Address [address] [place] [address]- Care Team Providers Care Firesetter Name Role Phone Mary SHAY, Bridgette Archibald Primary Care Physic payal Encounter [facility] Date(s): 05/25/19 - 06/04/19 [facility] [address] [place] [address]- [facility] Attending Physician: Rubens Pinto Admitting Physician: AdmRubens [...] Toxoid Vaccine (oldterm) 06/21/01 Given 1Result Comment: [facility] [id number] 2Result Comment: [05/02/2018] [facility] # [id number] 3Result Comment: [05/31/2017] [facility] [id number] 4Result Comment: [03/16/2014] Dr. Duffy 5Result Comment: [07/01/2015] diluent [id number] 08/24/17 Merck 6Admin Note: rcvd elsewhere Medications Advair Diskus 250 mcg-50 mcg inhalation powder 1, puffs, Inhalation, 2 times a day, # 180 each, Refills 3, Tot. Refills 3, Maintenance, 05/26/18 10:07:57 EST, Route to Pharmacy Electronically, [id number], [address] [facility] Start Date: 05/26/18 Stop Date: 05/21/19 Status: Ordered amiodarone 200 mg oral tablet 200 mg, 1, tablet, By Mouth, Daily, Prescribed by Dr. Car (Cardiology), # 90 tablet, Refills 0,Tot. Refills 0, Maintenance, 03/24/19 17:32:08 EDT, Route to Pharmacy Electronically, [id number], [facility] Start Date: 03/24/19 Stop Date: 06/24/20 Status: Ordered anastrozole 1 mg oral tablet 1 tablet = 1 mg, By Mouth, Daily, # 90 tablet, 1 Refills, Maintenance, 05/20/18 13:20:36 EST, Tablet Start Date: 05/20/18 Status: Ordered citalopram 20 mg oral tablet 20 mg, 1, tablet, By Mouth, Daily, # 90 tablet, Refills 1, Tot. Refills 1, Maintenance, 03/08/19 9:37:54 EDT, Route to Pharmacy Electronically, [id number], [facility] Start Date: 03/08/19 Status: Ordered diclofenac 1% topical gel 1 application, Topically, 4 times a day, # 100 Gm, 0 Refills, Maintenance, 03/15/19 16:17:19 EDT, Gel, 1 application Topically 4 times a day Start Date: 03/15/19 Status: Ordered diclofenac sodium 75 mg oral delayed release tablet 1 tablet = 75 mg, By Mouth, 2 times a day, with food, # 14 tablet, 0 Refills, Maintenance, 09/22/1916:24:19 EDT, EC Tablet Start Date: 09/22/18 Stop Date: 09/29/18 Status: Ordered Diltiazem CD Capsule 240 mg, By Mouth, Daily, Maintenance, 12/04/13 14:47:28 EDT Start Date: 12/04/13 Status: Ordered losartan 50 mg oral tablet 50 mg, 1, tablet, By Mouth, Daily, # 90 tablet, Refills 3, Tot. Refills 3, Maintenance, 07/13/18 16:42:32 EST, Route to Pharmacy Electronically, [id number], [facility] Start Date: 07/13/18 Stop Date: 07/08/19 Status: Ordered Protonix 40 mg oral delayed release tablet 1 tablet = 40 mg, By Mouth, Daily, # 90 tablet, 2 Refills, Maintenance, 05/24/19 10:26:14 EST, EC Tablet, 160.5, cm, 03/15/19 15:53:53 EDT, Height, 55.6, kg, 03/15/19 15:53:53 EDT, Dry Weight Start Date: 05/24/19 Status: Ordered Spiriva HandiHaler 18 mcg Inhalation Capsule 1 each = 18 mcg, Inhalation, Daily, # 90 each, 3 Refills, Maintenance, 06/02/18 10:48:46 EST, Capsule, 1 each Inhalation Daily Start Date: 06/02/18 Status: Ordered Vitamin D3 = 1,000 International_Units, By Mouth, 0 Refills, Maintenance, 11/22/15 14:34:08 Start Date: 11/22/15 Status: Ordered Xarelto 20 mg oral tablet [...] Active Wrist injury(Confirmed) Active 1Dermatologist is [facility] 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, T2 N0, ER positive, [place] negative, 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 Social History Social History Type Response Smoking Status Former smoker; Tobac co user in household: No; Other: Quit 30 years ago; Started at 16 YO 1/2 pack daily; entered on: 05/31/17 Sex
--- OUTSIDE RECORDS SUMMARY | 2023-02-05 11:16 | XMS_ITS | Continuity of Care Document ---
Author Name Unknown Organization [facility] Address [address] [place] [address]- Care Team Providers Care Beehive Kiln Charcoal Burner Name Role Phone Mary SHAY, Bridgette Archibald Primary Care Physic payal [place] [facility] [place] 01/23/[address] [address]- Attending Physician: Whitney Osman NP Admitting Physician: Whitney Osman NP Referring Physician: Whitney Osman NP Allergies, Adverse Reactions, Alerts Substance Reaction Severity Status Augmentin nausea Active Immunizations Given and Recorded Vaccine Date Status Refusal Reason [id number] 12y+ bivalent booster vax 1 04/09/22 Given [...] 06/21/01 Given 1Result Comment: [facility] [place]: [id number] 2Result Comment: [facility] [place]: [id number] 3Result Comment: [facility] [place]: [id number] 4Result Comment: [facility] [place]: [phone] 5Result Comment: [facility] [place] [phone] 6Result Comment: [05/02/2018] [facility] [place] # [id number] 7Result Comment: [05/31/2017] [facility] [place] [id number] 8Result Comment: [03/16/2014] Dr. Duffy 9Result Comment: [facility] [place]: [id number] 10Result Comment: [07/01/2015] diluent [id number] 08/24/17 Merck 11Admin Note: rcvd elsewhere Medications [...] puffs Inhalation Every 6 hours, 165, cm, 04/28/2... Start Date: 10/16/22 Status: Ordered amiodarone 200 [...] Mouth, Once, Administered after procedure - LOT [id number] EXP 01/2024, # 1 tablet, 0 Refills, [...] 0 Refills, Maintenance, 12/15/22 9:34:00 EDT, Tablet, [facility]/pharmacy #[id number], Partial fill upon patient [...] 11/17/22 8:17:00 EDT, Route to Pharmacy Electronically, [id number], 165, cm, 10/26/22 16:15:00 EDT, Height, 58.7, kg, 10/21/22 21:15:00 EDT, Dry Weight Start Date: 11/17/22 Stop Date: 12/17/22 Status: Ordered losartan 25 mg oral tablet 1 tablet = 25 mg, By Mouth, Daily, # 30 tablet, 0 Refills, Maintenance, 12/15/22 9:35:00 EDT, Tablet, [facility]/pharmacy #[id number], Partial fill upon patient [...] Date: 12/15/22 Stop Date: 03/15/23 Status: Ordered Spiriva HandiHaler 18 mcg inhalation capsule INHALE CONTENTS OF 1 CAPSULE EVERY DAY Start Date: 01/07/23 Status: Ordered Tiotropium See Instructions, Inhalation Daily [...] Active Anxiety Confirmed Active Asthma Confirmed Active Aortic atherosclerosis Confirmed Active Atrial fibrillation and flutter Confirmed Active Hematuria Confirmed Active Oral thrush Confirmed Active Cavitary lesion of lung Confirmed Active Left-sided chest wall pain Confirmed Active CAP (community acquired pneumonia) Confirmed Active Cough Confirmed Active COVID-19 Confirmed Active Rotator cuff syndrome of left shoulder Confirmed Active Shortness of breath Confirmed Active Edema Confirmed Active Popliteal pain Confirmed Active Hiatal [...] of breast cancer 2 Confirmed 10/2013 Active Physical deconditioning Confirmed Active Trigger middle finger Confirmed Active Bladder [...] Nurse Name: Mary SHAY, Bridgette Archibald Position: S Physician - Primary Care Member Role: PCP Address: Address: [address] [place] [id number] Name: Paris De Jesus LPN Position: S RN Member Role: Primary Care Nurse Name: Lisa Leone RN Position: [facility] RN Member Role: Primary Care Nurse Care Team Related Persons Name: AMY PENDLETON Address: [address] [place] [address] Name: ILDA DOWLING Address: [address] [place] [address]
--- OUTSIDE RECORDS SUMMARY | 2023-02-05 11:16 | XMS_ITS | Continuity of Care Document ---
Author Name Unknown Organization [facility] Address [address] [place] [address]- Care Team Providers Care Hand Potter Name Role Phone Mary SHAY, Bridgette Archibald Primary Care Physic payal Encounter [facility] Date(s): 06/05/22 - 07/05/22 [facility] [address] [place] [address]- Allergies, Adverse Reactions, Alerts Substance Reaction Severity Status Augmentin nausea Active Immunizations Given and Recorded Vaccine Date Status Refusal Reason [id number] 12y+ bivalent booster vax 1 04/09/22 Given [...] mRNA BNT-162b2 vac 07/26/20 Recorded tetanus/diphtheria/pertussis, acel(Tdap) 6/7/17 Given pneumococcal 13-valent vaccine 04/13/16 Given Zoster Vaccine Live 10 07/01/15 Given pneumococcal 23-valent vaccine 07/30/12 Given Influenza Inactive (IM) (oldterm) 11 04/28/08 Give n Pneumococcal Vaccine (oldterm) 11/05/06 Given Tetanus Toxoid Vaccine (oldterm) 06/21/01 Given 1Result Comment: [facility]: [id number] 2Result Comment: [facility]: [id number] 3Result Comment: [facility]: [id number] 4Result Comment: [facility]: [id number] 5Result Comment: [facility] [id number] 6Result Comment: [05/02/2018] [facility] # [id number] 7Result Comment: [05/31/2017] [facility] [id number] 8Result Comment: [03/16/2014] Dr. Duffy 9Result Comment: [facility]: [id number] 10Result Comment: [07/01/2015] diluent [id number] 08/24/17 Merck 11Admin Note: rcvd elsewhere Medications Advair Diskus 500 mcg-50 mcg inhalation powder 1, inhalation, Inhalation, 2 times a day, rinse mouth and throat after use j45.40, # 1 each, Refills 6, Tot. Refills 6, Maintenance, 01/19/22 12:24:00 EDT, Powder, Route to Pharmacy Electronically, [id number], [facility]/pharmacy #7... Start Date: 01/19/22 Status: Ordered albuterol 0.083% inhalation solution 3 mL = 2.5 mg, Inhalation, Every 6 hours, DX: J45.909, # 60 each, 0 Refills, Maintenance, 08/25/19 10:27:00 EST, Solution, [facility]/pharmacy #[id number], 160.5, cm, 07/19/19 13:59:00 EST, Height, 55.6, kg, 03/15/19 15:53:00 EDT, Dry Weight Start Date: 08/25/19 Status: Ordered Bactrim DS 800 mg-160 mg oral tablet 1 tablet, By Mouth, Once, [facility] # 1 tablet, 0 Refills, Soft Stop, 12/24/20 12:01:00 EDT, Partial fill upon patient request if the prescription is for a schedule II opioid drug. Start Date: 12/24/20 Status: Ordered cetirizine 10 mg oral tablet 1 tablet = 10 mg, By Mouth, Daily, # 30 tablet, 1 Refills, Maintenance, 04/22/21 15:35:00 EDT, Tablet, [facility]/pharmacy #[id number], Partial fill upon patient request if the prescription is for a schedule II opioid drug., 160, cm, 01/20/21 14:22:00 EDT, Height,... Start Date: 04/22/21 Status: Ordered citalopram 20 mg oral tablet 20 mg, 1, tablet, By Mouth, Daily, # 90 tablet, Refills 1, Tot. Refills 1, Maintenance, 04/30/22 17:34:00 EST, Route to Pharmacy Electronically, [facility]/pharmacy #[id number], 166, cm, 02/13/22 15:01:00 EDT, [...] capsule, 0 Refills, Maintenance, 11/19/21 16:31:00 EDT, [facility]/pharmacy #[id number], Partial fill upon patient request [...] 07/31/21 9:32:00 EST, Route to Pharmacy Electronically, [facility]/pharmacy #[id number], Partial fill upon patient request if the prescription is for a schedule II o... Start Date: 07/31/21 Status: Ordered Flonase 50 mcg/inh nasal spray 2 sprays, Nares, Both, Daily in AM, # 16 Gm, 6 Refills, Maintenance, 05/16/21 10:11:00 EST, [place], [facility]/pharmacy #[id number], Partial fill upon patient request if the prescription is for a schedule II opioid drug., 2 sprays Nares, Both Daily in AM, 160, cm,... Start Date: 05/16/21 Status: Ordered gabapentin 100 mg oral capsule 1, capsule, By Mouth, 3 times a day, # 90 capsule, Refills 0, Maintenance, 07/05/22 16:05:00 EST, Route to Pharmacy Electronically, [id number], 166, cm, 05/29/22 11:40:00 EST, Height, 63, kg, 12/12/20 13:26:00 EDT, Dry Weight Start Date: 07/05/22 Stop Date: 08/04/22 Status: Ordered loratadine 10 mg oral tablet 10 mg, 1, tablet, By Mouth, Daily, # 90 tablet, Refills 0, Tot. Refills 0, Maintenance, 11/27/21 9:50:00 EDT, Route to Pharmacy Electronically, [facility]/pharmacy #[id number], 160, cm, 08/19/21 15:40:00 EST, Height, 63, kg, 12/12/20 13:26:00 EDT, Dry Weight Start Date: 11/27/21 Status: Ordered losartan 25 mg oral tablet 25 mg, 1, tablet, By Mouth, Daily, # 90 tablet, Refills 1, Tot. Refills 1, Maintenance, 10/21/22 9:35:00 EDT, Route to Pharmacy Electronically, [facility]/pharmacy #[id number], Appointment, 166, cm, 02/13/22 15:01:00 [...] tablet, Refills 11, Route to Pharmacy Electronically, [facility] [id number], 160, cm, 08/19/21 15:40:00 EST, Height, 63, [...] capsule, 1 Refills, Maintenance, 05/25/22 9:54:00 EST, [facility]/pharmacy #[id number], 166, cm, 02/13/22 15:01:00 EDT, [...] T2 N0, ER positive, [place]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
--- OUTSIDE RECORDS SUMMARY | 2023-02-05 11:17 | XMS_ITS | Continuity of Care Document ---
Author Name Unknown Organization [facility] Address [address] [place] [address]- Care Team Providers Care Laborer Pipelines Name Role Phone Mary SHAY, Bridgette Archibald Primary Care Physic payal Encounter [facility] Date(s): 09/16/22 - 10/16/22 [facility] [address] [place] [address]- Attending Physician: Rubens Pinto Admitting Physician: Rubens Pinto Referring Physician: Rubens Pinto Allergies, Adverse Reactions, Alerts Substance Reaction Severity Status Augmentin nausea Active Immunizations Given and Recorded Vaccine Date Status Refusal Reason [id number] 12y+ bivalent booster vax 1 04/09/22 Given [...] Vaccine (oldterm) 06/21/01 Given 1Result Comment: [facility]: [address]-4 2Result Comment: [facility]: [id number] 3Result Comment: [facility]: 89667-236-17 4Result Comment: [facility]: 48655-060-42 5Result Comment: [facility] 72284-757-70 6Result Comment: [05/02/2018] [facility] # [id number] 7Result Comment: [05/31/2017] [facility] 38177-770-60 8Result Comment: [03/16/2014] Dr. Duffy 9Result Comment: [facility]: [id number] 10Result Comment: [07/01/2015] diluent [id number] 08/24/17 Merck 11Admin Note: rcvd elsewhere Medications Advair Diskus 500 mcg-50 mcg inhalation powder 1, inhalation, Inhalation, 2 times a day, rinse mouth and throat after use, Refills 0, Maintenance,10/14/22 3:02:00 EDT, Powder Start Date: 10/14/22 Status: Ordered Albuterol (Eqv-Ventolin HFA) 90 mcg/inh inhalation aerosol 2 puffs, Inhalation, Every 6 hours, # 18 Gm, 1 Refills, Maintenance, 10/16/22 10:07:00 EDT, [facility]/pharmacy #[id number], Partial fill upon patient request if the prescription is for a schedule II opioid drug., 2 puffs Inhalation Every 6 hours, 165, cm, ... Start Date: 10/16/22 Status: Ordered amiodarone 200 mg oral tablet 200 mg, 1, tablet, By Mouth, Daily, # 30 tablet, Refills 0, Maintenance, 10/14/22 3:02:00 EDT, Partial fill upon patient request if the prescription is for a schedule II opioid drug. Start Date: 10/14/22 Status: Ordered benzonatate 100 mg oral capsule 1 capsule = 100 mg, By Mouth, 3 times a day, for 7 days, # 30 capsule, 0 Refills, Acute 10/23/22 10:07:00 EDT, 10/16/22 10:07:00 EDT, Capsule, [facility]/pharmacy #[id number], Partial fill upon patient request ifthe prescription is for a schedule II opioid drug.,... Start Date: 10/16/22 Stop Date: 10/23/22 Status: Ordered citalopram 20 mg oral tablet TAKE 1 TABLET BY MOUTH EVERY DAY Start Date: 10/14/22 Status: Ordered dexamethasone 4 mg oral tablet 1.5 tablet = 6 mg, By Mouth, Daily in AM, for 7 days, # 10.5 tablet, 0 Refills, Acute 10/23/22 9:00:00 EDT, 10/16/22 9:00:00 EDT, Tablet, [facility], Partial fill upon patient request if the prescription is for a schedule II opioid drug.... Start Date: 10/16/22 Stop Date: 10/23/22 Status: Ordered DilTIAZem (Eqv-Cardizem CD) 360 mg/24 hours oral capsule, extended release 0 Refills, Maintenance, 10/14/22 3:02:00 EDT, Partial fill upon patient request if the prescriptionis for a schedule II opioid drug. Start Date: 10/14/22 Status: Ordered doxycycline hyclate 100 mg oral tablet = 100 mg, By Mouth, Every 12 hours, for 5 days, # 10 tablet, 0 Refills, Acute 10/20/22 18:00:00 EDT, 10/15/22 18:00:00 EDT, Tablet, [facility], Partial fill upon patient request if the prescription is for a schedule II opioid drug., 165,... Start Date: 10/15/22 Stop Date: 10/20/22 Status: Ordered Eliquis 5 mg oral tablet [...] Status: Ordered gabapentin 100 mg oral capsule TAKE 1 CAPSULE BY MOUTH 3 TIMES A DAY FOR 30 DAYS Start Date: 10/14/22 Status: Ordered losartan 25 mg oral tablet 1 tablet = 25 mg, By Mouth, Daily, # 30 tablet, 0 Refills, Maintenance, 10/14/22 3:02:00 EDT, Tablet, Partial fill upon patient request if the prescription is for a schedule II opioid drug. Start Date: 10/14/22 Status: Ordered Metoprolol Succinate ER 25 mg oral tablet, extended release TAKE 2 TABLETS BY MOUTH DAILY Start Date: 10/14/22 Status: Ordered montelukast 10 mg oral tablet [...] opioid drug. Start Date: 10/14/22 Status: Ordered Ventolin HFA 108 mcg/inh inhalation aerosol with adapter 1 puffs, Inhalation, 4 times a day, PRN for wheezing, # 18 Gm, 0 Refills, Maintenance, 10/14/22 3:02:00 EDT, Aerosol, Partial fill upon patient request if the prescription is for a schedule II opioiddrug. Start Date: 10/14/22 Status: Ordered Problem List Condition Confirmation Course Effective Dates Status H ealth Status Informant Adenomatous polyp of colon Confirmed Active Allergic rhinitis Confirmed Active Anemia Confirmed Active Anxiety Confirmed Active Asthma Confirmed Active Atrial fibrillation and flutter Confirmed Active Hematuria Confirmed Active Left-sided chest wall pain Confirmed Active CAP (community acquired pneumonia) Confirmed Active COVID-19 Confirmed Active Rotator cuff [...] infiltrating ductal carcinoma, T2 N0, ER positive, [place] negative, 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 Social History Social History Type Response Smoking Status Former smoker; Tobac co user in household: No; Other: Quit 30 years ago; Started at 16 YO 1/2 pack daily; entered on: 05/31/17 Sex Patient Care team information Care Team Personnel Name: Mary SHAY, Bridgette Archibald Position: [facility] Primary Care Physician Member Role: PCP Address: Address: [address] [place] [id number] Care Team Related Persons Name: AMY PENDLETON Address: [address] [place] [address] Name: ILDA DOWLING Address: [address] [place] [address]
--- OUTSIDE RECORDS SUMMARY | 2023-02-05 11:17 | XMS_ITS | Continuity of Care Document ---
Author Name Unknown Organization [facility] Address [address] [place] [address]- Care Team Providers Care Sole Edge Inker Machine Name Role Phone Mary SHAY, Bridgette Archibald Primary Care Physic payal Encounter [facility] Date(s): 11/16/20 - 12/16/20 [facility] [address] [place] [address]- [place] Attending Physician: Rubens Pinto Admitting Physician: [...] Toxoid Vaccine (oldterm) 06/21/01 Given 1Result Comment: [facility]: [id number] 2Result Comment: [facility] [id number] 3Result Comment: [05/02/2018] [facility] # [id number] 4Result Comment: [05/31/2017] [facility] [id number] 5Result Comment: [03/16/2014] Dr. Duffy 6Result Comment: [07/01/2015] diluent [id number] 08/24/17 Merck 7Admin Note: rcvd elsewhere Medications Advair Diskus 250 mcg-50 mcg inhalation powder 1, puffs, Inhalation, 2 times a day, # 180 each, Refills 1, Tot. Refills 1, Maintenance, 10/03/20 12:43:00 EDT, Route to Pharmacy Electronically, [id number], [id number], 160.5, cm, 04/19/20 11:16:00 EDT, Height, 55.6,... Start Date: 10/03/20 Stop Date: 04/01/21 Status: Ordered albuterol 0.083% inhalation solution 3 mL = 2.5 mg, Inhalation, Every 6 hours, DX: J45.909, # 60 each, 0 Refills, Maintenance, 08/25/19 10:27:00 EST, Solution, [facility]/pharmacy #[id number], 160.5, cm, 07/19/19 13:59:00 EST, Height, 55.6, kg, 03/15/19 15:53:00 EDT, Dry Weight Start Date: 08/25/19 Status: Ordered citalopram 20 mg oral tablet 20 mg, 1, tablet, By Mouth, Daily, # 90 tablet, Refills 1, Tot. Refills 1, Maintenance, 09/30/20 11:37:00 EDT, Route to Pharmacy Electronically, [facility]/pharmacy #[id number], 160.5, cm, 04/19/20 11:16:00 EDT, Height, [...] 12/11/20 15:53:00 EDT, Route to Pharmacy Electronically, [facility]/pharmacy #[id number], Partial fill upon patient request if the prescription is for a schedule II... Start Date: 12/11/20 Status: Ordered loratadine 10 mg oral tablet 10 mg, 1, tablet, By Mouth, Daily, # 90 tablet, Refills 0, Tot. Refills 0, Maintenance, 11/28/20 9:28:00 EDT, Route to Pharmacy Electronically, [facility]/pharmacy #[id number], 160.5, cm, 11/26/20 11:39:00 EDT, Height, 55.6, kg, 03/15/19 15:53:00 EDT, Dry Weight Start Date: 11/28/20 Status: Ordered losartan 25 mg oral tablet 25 mg, 1, tablet, By Mouth, Daily, # 90 tablet, Refills 0, Tot. Refills 0, Maintenance, 11/29/20 14:27:00 EDT, Route to Pharmacy Electronically, [facility]/pharmacy #[id number], Appointment, 160.5, cm, 11/26/20 11:39:00 EDT, [...] 90 capsule, 0 Refills, Maintenance, 11/29/20 14:28:00 EDT,[facility]/pharmacy #[id number], 160.5, cm, 11/26/20 11:39:00 EDT, Height, [...] infiltrating ductal carcinoma, T2 N0, ER positive, [place]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 2013(Confirmed) 10/02/13 Active Osteoporosis(Confirmed) Active Hx of breast cancer(Confirmed) 2 10/2013 Active Wrist injury(Confirmed) Active 1Dermatologist is [facility] 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, T2 N0, ER positive, [place] negative, 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 Social History Social History Type Response Smoking Status Former smoker; Tobac co user in household: No; Other: Quit 30 years ago; Started at 16 YO 1/2 pack daily; entered on: 05/31/17 Sex
--- OUTSIDE RECORDS SUMMARY | 2023-02-05 11:17 | XMS_ITS | Continuity of Care Document ---
Author Name Unknown Organization [facility] Address [address] [place] [address]- Care Team Providers Care Access Nurse Name Role Phone Mary SHAY, Bridgette Archibald Primary Care Physic payal Encounter [facility] Date(s): 01/01/20 - 01/31/20 [facility] [address] [place] [address]- [facility] Allergies, Adverse Reactions, Alerts Substance Reaction Severity [...] Vaccine (oldterm) 06/21/01 Given 1Result Comment: [facility] [id number] 2Result Comment: [05/02/2018] [facility] # [id number] 3Result Comment: [05/31/2017] [facility] [id number] 4Result Comment: [03/16/2014] Dr. Duffy 5Result Comment: [07/01/2015] diluent [id number] 08/24/17 Merck 6Admin Note: rcvd elsewhere Medications albuterol 0.083% inhalation solution 3 mL = 2.5 mg, Inhalation, Every 6 hours, DX: J45.909, # 60 each, 0 Refills, Maintenance, 08/25/19 10:27:00 EST, Solution, [facility]/pharmacy #[id number], 160.5, cm, 07/19/19 13:59:00 EST, Height, 55.6, kg, 03/15/19 15:53:00 EDT, Dry Weight Start Date: 08/25/19 Status: Ordered amiodarone 200 mg oral tablet 200 mg, 1, tablet, By Mouth, Daily, Prescribed by Dr. Car (Cardiology), # 90 tablet, Refills 0,Tot. Refills 0, Maintenance, 10/20/19 10:07:00 EDT, [id number], 160.5, cm, 07/19/19 13:59:00 EST, Height, 55.... Start Date: 10/20/19 Status: Ordered Azithromycin 5 Day Dose Pack 250 mg oral tablet 1 pack/packet, By Mouth, Once, # 6 tablet, 0 Refills, Soft Stop, 08/23/19 16:55:00 EST, Tablet, [facility]/pharmacy #[id number], 160.5, cm, 07/19/19 13:59:00 EST, Height, 55.6, kg, 03/15/19 15:53:00 EDT, Dry Weight Start Date: 08/23/19 Status: Ordered barium sulfate 2% oral suspension See Instructions, dispense two 450 mg bottles. Drink one 450 ml bottle at 8am, and one 450 mL bottle 90 minutes prior to procedure., # 900 mL, 0 Refills, Maintenance, 06/05/19 15:49:07 EST, [facility]/pharmacy #[id number], dispense two 450 mg bottles. ; Drink on... Start Date: 06/05/19 Status: Ordered Breo Ellipta 100 mcg-25 mcg/inh inhalation powder 1 puffs, Inhalation, Daily, # 30 each, 5 Refills, Maintenance, 10/27/19 17:22:00 EDT, Powder, [facility]/pharmacy #[id number], Substitute for Advair RX, 1 puffs Inhalation Daily, 160.5, cm, 07/19/19 13:59:00 EST,Height, 55.6, kg, 03/15/19 15:53:00 EDT, Dry Weight Start Date: 10/27/19 Status: Ordered citalopram 20 mg oral tablet 20 mg, 1, tablet, By Mouth, Daily, # 90 tablet, Refills 1, Tot. Refills 1, Maintenance, 09/14/19 10:00:00 EDT, Route to Pharmacy Electronically, [facility] ([place]), 160.5, cm, 07/19/19 13:59:00 [...] 12/20/19 15:58:00 EDT, Route to Pharmacy Electronically, [facility]), 160.5, cm, 12/12/19 13:19:00 EDT, Height, 55.6, kg, 03/15/19 15:53:00 EDT, Dry... Start Date: 12/20/19 Status: Ordered Protonix 40 mg oral delayed [...] 90 capsule, 3 Refills, Maintenance, 07/19/19 14:49:00 EST,[facility] ([place]), 160.5, cm, 07/19/19 13:59:00 EST, Height, 55.6, kg, 03/15/19 15:53:00 EDT, Dry Weight Start Date: 07/19/19 Status: Ordered Vitamin D3 = 1,000 International_Units, By Mouth, 0 Refills, Maintenance, 11/22/15 14:34:08 Start Date: 11/22/15 Status: Ordered Voltaren 1% topical gel 1 application, Topically, 4 times a day, # 100 Gm, 0 Refills, Maintenance, 07/13/19 17:07:00 EST, Gel, [facility]/pharmacy #[id number], 1 application Topically 4 times a day, 160.5, cm, 07/13/19 13:23:00 EST, Height, 55.6, kg, 03/15/19 15:53:00 EDT, Dry Weight Start Date: 07/13/19 Status: Ordered Xarelto 20 mg oral tablet See Instructions, 1 tablet by oral route every day with the evening meal, # 90 tablet, 1 Refills, Maintenance, 11/27/19 12:58:00 EDT, Tablet, [facility] ([place]), 160.5, cm, 07/19/19 13:59:00 EST, Height, 55.6, kg, 03/15/19 15:53:00 EDT, Dry We... Start Date: 11/27/19 Status: Ordered Xarelto 20 mg oral tablet See Instructions, 1 tablet by oral route every day with the evening meal, # 30 tablet, 0 Refills, Maintenance, 01/01/20 17:23:00 EDT, Tablet, [facility]/pharmacy #[id number], 160.5, cm, 12/12/19 13:19:00 EDT, [...] infiltrating ductal carcinoma, T2 N0, ER positive, [place]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
--- OUTSIDE RECORDS SUMMARY | 2023-02-05 11:17 | XMS_ITS | Continuity of Care Document ---
Author Name Unknown Organization [facility] Address [address] [place] [address]- Care Team Providers Care Cafeteria Attendant Name Role Phone Mary SHAY, Bridgette Archibald Primary Care Physic payal Encounter [facility] Date(s): 06/24/22 - 07/01/22 [facility] [address] [place] [address]- Attending Physician: Not on Staff, Attending MD Allergies, Adverse Reactions, Alerts Substance Reaction Severity Status Augmentin nausea Active Immunizations Given and Recorded Vaccine Date Status Refusal Reason [id number] 12y+ bivalent booster vax 1 04/09/22 Given [...] (oldterm) 06/21/01 Given 1Result Comment: [facility]: [id number] 2Result Comment: [facility]: [id number] 3Result Comment: [facility]: 13954-860-60 4Result Comment: [facility]: 97664-144-98 5Result Comment: [facility] 77131-688-83 6Result Comment: [05/02/2018] [facility] # 59121-653-01 7Result Comment: [05/31/2017] [facility] [id number] 8Result Comment: [03/16/2014] Dr. Duffy 9Result Comment: [facility]: [id number] 10Result Comment: [07/01/2015] diluent [id number] 08/24/17 Merck 11Admin Note: rcvd elsewhere Medications Advair Diskus 500 mcg-50 mcg inhalation powder 1, inhalation, Inhalation, 2 times a day, rinse mouth and throat after use j45.40, # 1 each, Refills 6, Tot. Refills 6, Maintenance, 01/19/22 12:24:00 EDT, Powder, Route to Pharmacy Electronically, [id number], [facility]/pharmacy #7... Start Date: 01/19/22 Status: Ordered albuterol 0.083% inhalation solution 3 mL = 2.5 mg, Inhalation, Every 6 hours, DX: J45.909, # 60 each, 0 Refills, Maintenance, 08/25/19 10:27:00 EST, Solution, [facility]/pharmacy #[id number], 160.5, cm, 07/19/19 13:59:00 [...] 1 Refills, Maintenance, 04/22/21 15:35:00 EDT, Tablet, [facility]/pharmacy #[id number], Partial fill upon patient request if the prescription is for a schedule II opioid drug., 160, cm, 01/20/21 14:22:00 EDT, Height,... Start Date: 04/22/21 Status: Ordered citalopram 20 mg oral tablet 20 mg, 1, tablet, By Mouth, Daily, # 90 tablet, Refills 1, Tot. Refills 1, Maintenance, 04/30/22 17:34:00 EST, Route to Pharmacy Electronically, [facility]/pharmacy #[id number], 166, cm, 02/13/22 15:01:00 EDT, [...] capsule, 0 Refills, Maintenance, 11/19/21 16:31:00 EDT, [facility]/pharmacy #[id number], Partial fill upon patient [...] 07/31/21 9:32:00 EST, Route to Pharmacy Electronically, [facility]/pharmacy #[id number], Partial fill upon patient request if the prescription is for a schedule II o... Start Date: 07/31/21 Status: Ordered Flonase 50 mcg/inh nasal spray 2 sprays, Nares, Both, Daily in AM, # 16 Gm, 6 Refills, Maintenance, 05/16/21 10:11:00 EST, [place], [facility]/pharmacy #[id number], Partial fill upon patient [...] 06/08/22 13:54:00 EST, Route to Pharmacy Electronically, [facility]/pharmacy #[id number], 166, cm, 05/29/22 11:40:00 EST,... Start Date: 06/08/22 Stop Date: 07/08/22 Status: Ordered loratadine 10 mg oral tablet 10 mg, 1, tablet, By Mouth, Daily, # 90 tablet, Refills 0, Tot. Refills 0, Maintenance, 11/27/21 9:50:00 EDT, Route to Pharmacy Electronically, [facility]/pharmacy #[id number], 160, cm, 08/19/21 15:40:00 EST, Height, 63, kg, 12/12/20 13:26:00 EDT, Dry Weight Start Date: 11/27/21 Status: Ordered losartan 25 mg oral tablet 25 mg, 1, tablet, By Mouth, Daily, # 90 tablet, Refills 1, Tot. Refills 1, Maintenance, 04/10/22 9:35:00 EDT, Route to Pharmacy Electronically, [facility]/pharmacy #[id number], Appointment, 166, cm, 02/13/22 15:01:00 EDT, [...] tablet, Refills 11, Route to Pharmacy Electronically, [id number], 160, cm, 08/19/21 15:40:00 EST, Height, 63, [...] capsule, 1 Refills, Maintenance, 05/25/22 9:54:00 EST, [facility]/pharmacy #[id number], 166, cm, 02/13/22 15:01:00 EDT, [...] infiltrating ductal carcinoma, T2 N0, ER positive, [place]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 2013 Confirmed 10/02/13 Active Localized osteoarthritis of knee Confirmed Active Osteoporosis Confirmed Active Breast pain, left Confirmed Active Hx of breast cancer 2 Confirmed 10/2013 Active Wrist injury Confirmed Active 1Dermatologist is [place] [facility] 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, T2 N0, ER positive, [place] negative, 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 Social History Social History Type Response Smoking Status Former smoker; Tobac co user in household: No; Other: Quit 30 years ago; Started at 16 YO 1/2 pack daily; entered on: 05/31/17 Sex Note * Hattie Lopes: PERFORM, SIGN, VERIFY Event Display: Patient Education/Instruction Authored Date: [id number] [facility] *[facility] Clinical Summary Name HATTIE ECHEVARRIA Age 82 Years 1940 PCP Mary SHAY, Bridget[facility]ibald [id number] Visit Date 06/24/2022 15:02:00 Additional Instructions: Scheduled Appointments?? Future Appointments ?[facility] ?[address],??[place],??[address] ?Phone:??[phone]?Fax:??-- ?Appt. Date:??12/24/2022?1:00 PM ?Scheduled Provider:??[facility] 3D Mammo Rm 4 Follow-Up Instructions ?? Diagnosis Medications: Please continue your medications until treatment is completed or stopped by your provider. Discuss any questions related to medications with your provider. Medications to Continue with No Changes [facility]/pharmacy #[id number], [address], [place] [id number], [phone] Gabapentin (gabapentin 100 mg oral capsule) 1 capsule Oral 3 times a day for 30 Days. TAKE 1 CAPSULE BY MOUTH THREE TIMES A DAY. Refills: 0. Next Dose: These medications were not printed or sent [...] after use j45.40. Refills: 6. Next Dose: Loratadine (loratadine 10 mg oral [...] tab(s) Oral Daily. Refills: 0. Next Dose: Sulfamethoxazole/Trimethoprim (Bactrim DS 800 mg-160 mg oral tablet) 1 tab(s) Oral once. after procdeure today-ec. Refills: 0. Next Dose: Tiotropium (Spiriva HandiHaler [...] home through a free online portal called [employer]. [employer] is a website that allows you to securely view your medical information including discharge summary, medications and follow-up visits. ??You can alsosend a secure electronic message to your doctor???s office to request appointments, renew medications or just ask a question. You can enroll at [email or web address] or register during your next office visit. [...] primary care provider, you may find a [facility] provider by calling [facility] at [phone]. For information about the plan of care including goals and instructions for your diagnosis, please see the patient education orders section of this document. Patient Education Materials?? The content of this educational material or handout may have been modified, supplemented, or adapted from its original content and format to support your individualized medical care. * Hattie Lopes: PERFORM, SIGN, VERIFY Event Display: Patient Education/Instruction Authored Date: [id number] [facility] *[facility] Clinical Summary Name HATTIE ECHEVARRIA Age 82 Years 1940 PCP Mary SHAY, Bridgette Archibald PCP Visit Date 06/24/2022 15:02:00 Additional Instructions: Scheduled Appointments?? Future Appointments ?[facility] ?[address],??[place],??[address] ?Phone:??[phone]?Fax:??-- ?Appt. Date:??12/24/2022?1:00 PM ?Scheduled Provider:??[facility] 3D Mammo 4 Follow-Up Instructions ?? Diagnosis Medications: Please continue your medications until treatment is completed or stopped by your provider. Discuss any questions related to medications with your provider. Medications to Continue with No Changes [id number], [address], [place] [id number], [phone] Gabapentin (gabapentin 100 mg oral capsule) 1 capsule Oral 3 times a day for 30 Days. TAKE 1 CAPSULE BY MOUTH THREE TIMES A DAY. Refills: 0. Next Dose: These medications were not printed or sent [...] after use j45.40. Refills: 6. Next Dose: Loratadine (loratadine 10 mg oral [...] tab(s) Oral Daily. Refills: 0. Next Dose: Sulfamethoxazole/Trimethoprim (Bactrim DS 800 mg-160 mg oral tablet) 1 tab(s) Oral once. after procdeure today-. Refills: 0. Next Dose: Tiotropium (Spiriva HandiHaler [...] home through a free online portal called [employer]. [employer] is a website that allows you to securely view your medical information including discharge summary, medications and follow-up visits. ??You can alsosend a secure electronic message to your doctor???s office to request appointments, renew medications or just ask a question. You can enroll at [email or web address] or register during your next office [...] primary care provider, you may find a [facility] provider by calling [facility] at [phone]. For information about the plan of care [...] Care Physician Member Role: PCP Address: Address: [address] [place] [address]- Care Team Related Persons Name: ILDA DOWLING Address: [address] [address]
--- OUTSIDE RECORDS SUMMARY | 2023-02-05 11:17 | XMS_ITS | Continuity of Care Document ---
Author Name Unknown Organization [facility] Address [address] [place] [address]- Care Team Providers Care Children'S Entertainer Name Role Phone Mary SHAY, Bridgette Archibald Primary Care Physic payal Encounter [facility] Date(s): 11/18/22 - 12/18/22 [facility] [address] [place] [address]- Allergies, Adverse Reactions, Alerts Substance Reaction Severity Status Augmentin nausea Active Immunizations Given and Recorded Vaccine Date Status Refusal Reason [id number] 12y+ bivalent booster vax 1 04/09/22 Given [...] Toxoid Vaccine (oldterm) 06/21/01 Given 1Result Comment: [facility]: [id number] 2Result Comment: [facility]: [id number] 3Result Comment: [facility]: 57243-967-10 4Result Comment: [facility]: [id number] 5Result Comment: [facility] [id number] 6Result Comment: [05/02/2018] [facility] # [id number] 7Result Comment: [05/31/2017] [facility] [id number] 8Result Comment: [03/16/2014] Dr. Duffy 9Result Comment: [facility]: [id number] 10Result Comment: [07/01/2015] diluent [id number] 08/24/17 [employer] 11Admin Note: rcvd elsewhere Medications [...] Gm, 1 Refills, Maintenance, 10/16/22 10:07:00 EDT, [facility]/pharmacy #[id number], Partial fill upon patient request if [...] By Mouth, Once, Administered after procedure - [facility] LOT [id number] EXP 01/2024, # 1 tablet, 0 Refills, [...] 0 Refills, Maintenance, 12/15/22 9:34:00 EDT, Tablet, [facility]/pharmacy #[id number], Partial fill upon patient request if [...] 11/17/22 8:17:00 EDT, Route to Pharmacy Electronically, [facility] STORE [id number], 165, cm, 10/26/22 16:15:00 EDT, Height, 58.7, kg, 10/21/22 21:15:00 EDT, Dry Weight Start Date: 11/17/22 Stop Date: 12/17/22 Status: Ordered losartan 25 mg oral tablet 1 tablet = 25 mg, By Mouth, Daily, # 30 tablet, 0 Refills, Maintenance, 12/15/22 9:35:00 EDT, Tablet, 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 Social History Social History Type Response Smoking Status Former smoker; Tobac co user in household: No; Other: Quit 30 years ago; Started at 16 YO 1/2 pack daily; entered on: 05/31/17 Sex Patient Care team information Care Team Personnel Name: Luis Bojorquez RN Position: [facility] RN Member Role: Primary Care Nurse Name: Mary SHAY, Bridgette Archibald Position: [facility] Physician - Primary Care Member Role: PCP Address: Address: [address] [place] [address]- Name: Paris De Jesus LPN Position: [facility] RN Member Role: Primary Care Nurse Name: Keya Rollins RN Position: [facility] RN Member Role: Primary Care Nurse Name: Lisa Leone RN Position: [facility] RN Member Role: Primary Care Nurse Care Team Related Persons Name: AMY PENDLETON Address: [address] [place] [address] Name: ILDA DOWLING Address: [address] [place] [address]
--- OUTSIDE RECORDS SUMMARY | 2023-02-05 11:17 | XMS_ITS | Continuity of Care Document ---
Author Name Unknown Organization [facility] Address [address] [place] [address]- Care Team Providers Care Lip Of Shank Cutter Name Role Phone Mary SHAY, Bridgette Archibald Primary Care Physic payal Encounter [facility] Date(s): 10/03/20 - 10/10/20 [facility] [address] [place] [address]- [place] Encounter Diagnosis LLQ pain(Discharge Diagnosis) - 10/03/20 Hematuria(Discharge Diagnosis) - 10/03/20 Bilateral hip pain(Discharge Diagnosis) - 10/03/20 Attending Physician: Mary SHAY, Bridgette Archibald Allergies, [...] Vaccine (oldterm) 06/21/01 Given 1Result Comment: [facility]: [id number] 2Result Comment: NDC 34600-157-92 3Result Comment: [05/02/2018] [facility] # [id number] 4Result Comment: [05/31/2017] [facility] [id number] 5Result Comment: [03/16/2014] Dr. Duffy 6Result Comment: [07/01/2015] diluent [id number] 08/24/17 [employer] 7Admin Note: rcvd elsewhere Medications Advair Diskus 250 mcg-50 mcg inhalation powder 1, puffs, Inhalation, 2 times a day, # 180 each, Refills 1, Tot. Refills 1, Maintenance, 10/03/20 12:43:00 EDT, Route to Pharmacy Electronically, [id number], [facility]/pharmacy #[id number], 160.5, cm, 04/19/20 11:16:00 EDT, Height, 55.6,... Start Date: 10/03/20 Stop Date: 04/01/21 Status: Ordered albuterol 0.083% inhalation solution 3 mL = 2.5 mg, Inhalation, Every 6 hours, DX: J45.909, # 60 each, 0 Refills, Maintenance, 08/25/19 10:27:00 EST, Solution, [facility]/pharmacy #[id number], 160.5, cm, 07/19/19 13:59:00 EST, [...] 5 Refills, Maintenance, 06/04/20 9:31:00 EST, Powder, [facility]/pharmacy #[id number], Substitute for Advair RX, 1 puffs Inhalation Daily, 160.5, cm, 04/19/20 11:16:00 EDT, Height, 55.6, kg, 03/15/19 15:53:00 EDT, Dry Weight Start Date: 06/04/20 Status: Ordered citalopram 20 mg oral tablet 20 mg, 1, tablet, By Mouth, Daily, # 90 tablet, Refills 1, Tot. Refills 1, Maintenance, 09/30/20 11:37:00 EDT, Route to Pharmacy Electronically, [facility]/pharmacy #[id number], 160.5, cm, 04/19/20 11:16:00 EDT, Height, [...] 04/19/20 12:01:00 EDT, Route to Pharmacy Electronically, [facility]/pharmacy #[id number], 160.5, cm, 04/19/20 11:16:00 EDT, Height, 55.6, kg, 03/15/19 15:53:00 EDT, Dry Weight Start Date: 04/19/20 Status: Ordered losartan 25 mg oral tablet 25 mg, 1, tablet, By Mouth, Daily, # 90 tablet, Refills 3, Tot. Refills 3, Maintenance, 12/20/19 15:58:00 EDT, Route to Pharmacy Electronically, [facility] 160.5, cm, 12/12/19 13:19:00 EDT, Height, 55.6, [...] 90 capsule, 1 Refills, Maintenance, 03/01/20 11:31:00 EDT,[facility]/pharmacy #[id number], 160.5, cm, 12/12/19 13:19:00 EDT, Height, 55.6, kg, 03/15/19 15:53:00 EDT, Dry Weight Start Date: 03/01/20 Status: Ordered Vitamin D3 = 1,000 International_Units, By Mouth, 0 Refills, Maintenance, 11/22/15 14:34:08 Start Date: 11/22/15 Status: Ordered Voltaren 1% topical gel 1 application, Topically, 2 times a day, for 30 days, # 100 Gm, 0 Refills, Acute 11/02/20 12:41:00 EDT, 10/03/20 12:41:00 EDT, Gel, [facility]/pharmacy #[id number], Partial fill upon patient request if the prescription is for a schedule II opioid drug., 1 applicat... 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 2013(Confirmed) 10/02/13 Active Osteoporosis(Confirmed) Active Hx of breast cancer(Confirmed) 2 10/2013 Active Wrist injury(Confirmed) Active 1Dermatologist is [place] [facility] 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, T2 N0, ER positive, MT negative, 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 Diagnosis Diagnosis Type Effective Dates Health Status Cl inical Service Informant LLQ pain Discharge Diagnosis 10/03/20 Hematuria Discharge Diagnosis 10/03/20 Bilateral hip pain Discharge Diagnosis 10/03/20 Social History Social History Type Response Smoking Status Former smoker; Tobac co user in household: No; Other: Quit 30 years ago; Started at 16 YO 1/2 pack daily; entered on: 05/31/17 Sex
--- OUTSIDE RECORDS SUMMARY | 2023-02-05 11:17 | XMS_ITS | Continuity of Care Document ---
Author Name Unknown Organization [facility] Address [address] [place] [address]- Care Team Providers Care Fiscal Services Director Name Role Phone Mary SHAY, Bridgette Archibald Primary Care Physic payal Encounter [facility] Date(s): 10/09/22 - 11/08/22 [facility] [address] [place] [address]- Allergies, Adverse Reactions, Alerts Substance Reaction Severity Status Augmentin nausea Active Immunizations Given and Recorded Vaccine Date Status Refusal Reason [id number] 12y+ bivalent booster vax 1 04/09/22 Given [...] Toxoid Vaccine (oldterm) 06/21/01 Given 1Result Comment: [facility]: [address]-5 2Result Comment: [facility]: [id number] 3Result Comment: [facility]: 25772-655-43 4Result Comment: [facility]: 38607-614-29 5Result Comment: [facility] 88658-858-00 6Result Comment: [05/02/2018] [facility] # 84338-802-90 7Result Comment: [05/31/2017] [facility] 76881-088-45 8Result Comment: [03/16/2014] Dr. Duffy 9Result Comment: [facility]: 78151-344-17 10Result Comment: [07/01/2015] diluent [id number] 08/24/17 [employer] 11Admin Note: rcvd elsewhere Medications [...] 1 Refills, Maintenance, 10/16/22 10:07:00 EDT, [facility]/pharmacy #[id number], [...] Team Personnel Name: Luis Bojorquez RN Position: [facility] RN Member Role: Primary Care Nurse Name: Mary SHAY, Bridgette Archibald Position: [facility] Primary Care Physician Member Role: PCP Address: Address: [address] [place] [address] Name: Paris De Jesus LPN Position: S RN Member Role: Primary Care Nurse Name: Keya Rollins RN Position: S RN Member Role: Primary Care Nurse Name: Lisa Leone RN Position: S RN Member Role: Primary Care Nurse Care Team Related Persons Name: AMY PENDLETON Address: [address] [place] [address] Name: ILDA DOWLING Address: [address] [place] [address]
--- OUTSIDE RECORDS SUMMARY | 2023-02-05 11:17 | XMS_ITS | Continuity of Care Document ---
Author Name Unknown Organization [facility] ter Address [address] [place] [id number] Care Team Providers Care Sap Bobj Developer Name Role Phone Mary SHAY, Bridgette Archibald Primary Care Physic payal Encounter [facility] Date(s): 10/14/22 - 10/15/[address] [id number]- Encounter Diagnosis COVID-19(Final) - 10/14/22 Discharge Disposition: A-D/C Home Attending Physician: Jus Valdivia MD Admitting Physician: Efrain Chadwick MD Referring Physician: Not on Staff, Referring MD Allergies, Adverse Reactions, Alerts Substance Reaction Severity Status Augmentin nausea Active Immunizations Given and Recorded Vaccine Date Status Refusal Reason [id number] 12y+ bivalent booster vax 1 04/09/22 Given [...] [facility]: [id number] 2Result Comment: [facility]: [id number] 3Result Comment: [facility]: [id number] 4Result Comment: [facility]: [id number] 5Result Comment: [facility] [id number] 6Result Comment: [05/02/2018] [facility] # [id number] 7Result Comment: [05/31/2017] [facility] [id number] 8Result Comment: [03/16/2014] Dr. Duffy 9Result Comment: [facility]: [id number] 10Result Comment: [07/01/2015] diluent [id number] 08/24/17 [employer]ck 11Admin Note: rcvd elsewhere Medications Advair Diskus 500 mcg-50 mcg inhalation powder 1, inhalation, Inhalation, 2 times a day, rinse mouth and throat after use, Refills 0, Maintenance,10/14/22 3:02:00 EDT, Powder Start Date: 10/14/22 Status: Ordered amiodarone 200 mg oral tablet [...] 10/23/22 9:00:00 EDT, 10/16/22 9:00:00 EDT, Tablet, [facility], Partial fill upon patient [...] 10/20/22 18:00:00 EDT, 10/15/22 18:00:00 EDT, Tablet, [facility], Partial fill upon patient [...] 30 DAYS Start Date: 10/14/22 Status: Ordered gabapentin 100 mg oral capsule 100 mg, Capsule, By Mouth, 10/15/22 9:00:00 EDT Start Date: 10/15/22 Stop Date: 10/15/22 Status: Completed losartan 25 mg oral tablet 1 tablet [...] N0, ER positive, CT negative, 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 Results Radiology Reports * Exam Date Time Procedure Performing Provider Status 10/14/22 2:[address] Angio Chest Isaura Wood; Auth (Verified) Notes: (CT Angio Chest) Reason For Exam: PE suspected, Intermediate prob, positive D-dimer,;Other: RESULT: CT Angio Chest EXAMINATION: CT Angio Chest INDICATION: Reason: PE suspected, Intermediate prob, positive D-dimer,; Clinical Question(s): Pulmonary Embolism TECHNIQUE: Spiral CTA of the chest was performed after rapid IV contrast administration without cardiac gating, triggered by an SHAHRAM on the main pulmonary artery. Images are formatted in multiple planes using 2-D multiplanar and 3-D maximum intensity projection. 100 cc of Omnipaque 300 was administered intravenously. Weight-based protocol using automatic tube modulation was used to optimize exposure parameters. CTDIvol Body: 11.82 mGy, DLP Body: 341 mGy*cm. COMPARISONS: CT 01/03/2021. Radiographs dated 10/09/2022 and 10/13/2022. ANGIOGRAPHIC FINDINGS: Evaluation is severely limited by motion artifact an poor opacification of the pulmonary arterial system. No pulmonary embolism to the central and lobar arteries. Normal caliber pulmonary arteries. No acute aortic abnormality seen on this study performed without cardiac gating. NON-ANGIOGRAPHIC FINDINGS: Glass Breaker View Findings, Lines and Tubes: None. Trachea and Airways: Patent without evidence of tracheal or endobronchial lesion. Lungs and Pleura: Moderate respiratory motion. Multifocal areas of consolidation with surrounding groundglass opacity throughout the left upper and lower lobes with minimal opacity in the right lung base and superior segment of the right lower lobe (505:26). Largest area of confluent consolidation in the left apex (505:18). Some of the areas of consolidation are somewhat nodular in configuration,for example in the left lower lobe (505:56). No effusion or pneumothorax. Mediastinum and randolph: No mass or hematoma. Bilateral hilar adenopathy measuring up to 1.1 cm in theshort axis (for example 501:32).. Subcarinal node measuring 1.3 cm in the short axis (501:42. Additional smaller mediastinal lymph nodes seen. Type 3 paraesophageal hernia. No thyroid nodule large enough to warrant follow up. Heart: Heart is normal in size. No pericardial effusion. Moderate coronary artery calcification. Chest Wall Soft Tissues: Some curvilinear calcifications in the left breast likely sequela of priorsurgery or trauma. Diaphragm and upper abdomen: No significant abnormality. 8 mm hypodensity in segment 4 (501:73), unchanged from 202, likely a cyst. Bones: Limited by motion artifact. Likely old right-sided rib fractures. Spine degenerative changes. No acute abnormality IMPRESSION: Significantly limited due to respiratory motion and contrast timing. No large central or lobar pulmonary embolism. Multifocal areas of consolidation throughout the left lung and a small amount of consolidation in the right lung base most suggestive of pneumonia. A follow-up chest CT in 6-8 weeks on appropriate treatment is recommended to assess for resolution/improvement, given that some of these areas of consolidation are vaguely nodular in appearance. Mild mediastinal lymphadenopathy is favored be reactive. Attention on follow-up is recommended. Large type III paraesophageal hernia. A critical result message (Yellow) has been communicated via the [employer] system on 10/14/2022 9:09 AM, Message ID [id number]. I have personally reviewed the images and I agree with this report. WSN: [id number] Ordering Physician: Gucci Alejandra Dictated By: Olu Kathleen DO Dictated Date/Time: 10/14/22 9:09 am Reviewed By: Leonardo Taveras MD Signed By: Leonardo Taveras MD Signed Date/Time: 10/14/22 9:14 am Transcribed By: MERLY Transcribed Date/Time: 10/14/22 5:52 am * Exam Date Time Procedure Performing Provider Status 10/13/22 11:03 PM Chest Portable Reginaldo Bullock; Auth (V erified) Notes: (Chest Portable) Reason For Exam: Shortness of Breath RESULT: Chest Portable Chest Portable Reason: Shortness of Breath; Clinical Question(s): Pneumonia COMPARISON: 10/09/2022 FINDINGS: LINES AND TUBES: None. LUNGS AND PLEURA: Patchy density seen throughout much of the left lung. Findings suspicious for pneumonia given the interval change from recent exam. No pleural effusion. No pneumothorax. HEART, MEDIASTINUM AND RANDOLPH: Heart is normal in size. Normal mediastinal and hilar contour. BONES AND SOFT TISSUES: No acute abnormality. IMPRESSION: Findings suggestive of multifocal left lung pneumonia. A critical result message ([place]) has been communicated via the [employer] system on 10/13/2022 11:11 PM, Message ID [id number]. WSN: [id number] Ordering Physician: Gucci Alejandra Dictated By: Levi Fonseca MD Dictated Date/Time: 10/13/22 11:11 p Reviewed By: Levi Fonseca MD Signed By: Levi Fonseca MD Signed Date/Time: 10/13/22 11:11 pm Transcribed By: MERLY Transcribed Date/Time: 10/13/22 11:10 pm Vital Signs Most recent to oldest [Reference Range]: 1 2 3 Height 165 cm (10/15/22 8:12 AM) 165 cm (10/15/22 12:17 AM) Weight 56.7 kg (10/15/22 12:17 AM) Oxygen Saturation [94-100 %] 95 % (10/15/22 8:12 AM) 98 % (10/15/22 3:22 AM) 98 % (10/15/22 12:17 AM) Pulse Rate [55-90 bpm] 69 bpm (10/15/22 8:12 AM) 74 bpm (10/15/22 3:22 AM) 89 bpm (10/15/22 12:17 AM) Body Mass Index [18.5-24.99 kg/m2] 20.83 kg/m2 (10/15/22 12:17 AM) Blood Pressure [90-138/55-84 mm Hg] 112/56mm Hg (10/15/22 8:12 AM) 104/50mm Hg (10/15/22 3:22 AM) 131/66mm Hg (10/15/22 12:17 AM) Respiratory Rate [16-30 br/min] 16 br/min (10/15/22 10:54 AM) 16 br/min (10/15/22 8:28 AM) 18 br/min (10/15/22 8:12 AM) Temperature [96.8-100.4 DegF] 98.5 DegF (10/15/22 8:12 AM) 98.0 DegF (10/15/22 3:22 AM) 98.3 DegF (10/15/22 12:17 AM) Liters per Minute 2 L/min (10/15/22 8:12 AM) 2 L/min (10/15/22 3:22 AM) 2 L/min (10/15/22 12:17 AM) Mode of Delivery (Oxygen) Nasal cannula (10/15/22 8:12 AM) Nasal cannula (10/15/22 3:22 AM) Nasal cannula (10/15/22 12:17 AM) Blood pressure sites Arm, left (10/15/22 8:12 AM) Arm, left (10/15/22 3:22 AM) Arm, left (10/15/22 12:17 AM) Temperature Route Oral (10/15/22 8:12 AM) Oral (10/15/22 3:22 AM) Oral (10/15/22 12:17 AM) Dry Weight 60 kg (10/15/22 12:17 AM) Weight Obtained Via Bed scale (10/15/22 12:17 AM) Dry Weight Obtained Via Patient/family stated (10/15/22 12:17 AM) Social History Social History Type Response Smoking Status Former smoker; Tobac co user in household: No; Other: Quit 30 years ago; Started at 16 YO 1/2 pack daily; entered on: 05/31/17 Sex Admission evaluation note * Deven SHAY, Tyler: MODIFY, PERFORM Event Display: Admission Note Authored Date: [id number] Patient: ??HATTIE ECHEVARRIA ? Age:??82 Years?Sex:??Female?:??1940?? Chief Complaint/Reason for Consultation pos covid wednesday, SOB today ems found at 90% RA placed on 4L with improvement to 94-95%, prod coughw/ brown sputum.. also c/o of dizziness History of Present Illness Patient is an 82-year-old female history of atrial fibrillation on Eliquis, asthma, is admitted to the hospital for multifocal pneumonia, acute hypoxic respiratory failure, and COVID??pneumonia Patient stated that she has been??short of breath, and having initially dry cough, she tested positive for COVID??last Wednesday, however her short of breath continued to worsen, she started having someproductive cough,??and having chills and fevers, which prompted her presentation On presentation she is hypoxic requiring??nasal cannula, blood work with leukocytosis otherwise unremarkable, tested positive for COVID, chest x-ray with multifocal pneumonia, CT angio??confirms multifocal pneumonia, no PE,??she was given Rocephin and doxycycline Review of Systems As under HPI Objective VSS ?? Physical Exam Constitutional: Alert, in no acute distress. Head EENT: Extraocular muscle movement intact.??Moist mucous membranes.?? Neck: Supple. No JVD. Respiratory: Bibasilar crackles,. No use of accessory muscles. Cardiovascular: S1S2 regular. No murmurs, rubs or gallops. Gastrointestinal: Abdomen soft, non-tender, non-distended. Normal bowel sounds. Genitourinary: No CVA tenderness. Extremities: No lower extremity pitting??edema. No cyanosis or clubbing. Neurologic: AAOx3, Speech normal. No focal neurological deficits. Skin: No rash. Psychiatric: Normal mood and affect Assessment/Plan Diagnoses COVID-19 ??(U07.1) ?? Assessment:??82-year-old female admitted to the hospital for acute hypoxic respiratory failure in the setting of multifocal pneumonia, could be??COVID and with superimposed bacterial, ?? Multifocal pneumonia COVID-pneumonia??and possible superimposed bacterial pneumonia History of asthma Tested positive for COVID last Wednesday,??her chest x-ray with multifocal pneumonia, and CT??confirmsdense consolidations??diffusely but mostly on the left lung, She is in need for??4 L nasal cannula I will put her on??Zosyn and azithromycin DuoNeb scheduled and??as needed Continue Decadron??6 mg daily Incentive spirometry Continue montelukast ?? A-fib Continue??diltiazem, amiodarone,??metoprolol, continue Eliquis ? Hypertension Continue losartan ? MOLST form with DNI only, DVT prophylaxis, on Eliquis ?? Discharge Planning:? Histories Past Medical History/Problem List Active Problems??(26) Abdominal hernia Abnormal urine color Adenomatous polyp of colon Allergic rhinitis Anemia Anxiety Asthma Atrial fibrillation and flutter Bilateral nephrolithiasis Bladder stones Breast pain, left h/o Hypertension H/O sebaceous cyst Hematuria Hiatal hernia with gastroesophageal reflux History of basal cell carcinoma of skin Hx of breast cancer Left-sided chest wall pain Localized osteoarthritis of knee LUQ abdominal pain Osteoarthritis of left knee Osteoporosis Popliteal pain Rotator cuff syndrome of left shoulder Trigger middle finger Wrist injury ? Past Surgical History Upper Endoscopy: 10/14/15 left Cataract extraction: 12/19/14 Right Cataract extraction: 10/31/14 [place] lymph node biopsy: 01/19/14 Left breast radioactive seed localization lumpectomy: 11/14/13 Pulmonary function test: 09/25/11 dobutamine Echoacrdiogram: 07/26/09 holter: 07/26/09 Pulmonary function test: 06/25/08 CT thorax: 06/08/08 CT of thorax: 06/07/08 Bone density scan: 11/11/06 Appendectomy Hysterectomy ? Social History Alcohol Details:??Use: Current. ??Frequency: on occasion. ??Type: Beer, Wine. Exercise Details:??Regular exercise: Yes. ??Exercise frequency: 3-4 times/week. Home/Environment Details:??Living situation: Home/Independent. ??Lives with: Significant other, Partner is Macarena Dowling. Substance Abuse Details:??Use: Never. Tobacco Details:??Former smoker, Tobacco user in household: No. ??Other: Quit 30 years ago; Started at 16 YO 1/2 pack daily. ? Family History Mother (): Arthritis; Heart attack ?05-MAR-2014 20:58:42<$>; Hypertension Father (): Alcoholism Sister: Asthma Sister: Asthma Sister (): Cancer of breast ? Medications Home Medications Albuterol (Ventolin HFA 108 mcg/inh inhalation aerosol with adapter)?1?puff(s)?Inhalation?4 times a day?as needed?for wheezing amiODARONE (amiodarone 200 mg oral tablet)?200?Milligram?1?tablet?By Mouth?Daily apixaban (Eliquis 5 mg oral tablet)?1?tab(s)?5?Milligram?By Mouth?2 times a day Citalopram (citalopram 20 mg oral tablet)?TAKE 1 TABLET BY MOUTH EVERY DAY Famotidine (famotidine 20 mg oral tablet)?20?Milligram?1?tablet?By Mouth?2 times a day Fluticasone-Salmeterol (Advair Diskus 500 mcg-50 mcg inhalation powder)?1?inhalation?Inhalation?2 times a day?rinse mouth and throat after use Gabapentin (gabapentin 100 mg oral capsule)?TAKE 1 CAPSULE BY MOUTH 3 TIMES A DAY FOR 30 DAYS Losartan (losartan 25 mg oral tablet)?1?tab(s)?25?Milligram?By Mouth?Daily Metoprolol (Metoprolol Succinate ER 25 mg oral tablet, extended release)?TAKE 2 TABLETS BY MOUTHDAILY Montelukast (montelukast 10 mg oral tablet)?10?Milligram?1?tablet?By Mouth?Daily Pantoprazole (pantoprazole 40 mg oral delayed release tablet)?TAKE 1 TABLET BY MOUTH EVERY DAY ? Inpatient Medications Medications (23) Active SCHEDULED: (15) Albuterol/Ipratropium Inhalation Tricia 3mL (Duoneb Inhalation Solution) ??1 vials, BAND Nebulizer, 4 times a day Amiodarone 200 mg Tablet (amiodarone 200 mg oral tablet) ??200 mg, By Mouth, Daily Apixaban 5 mg Tablet (Eliquis) ??5 mg, By Mouth, 2 times a day Azithromycin 500 mg IVPB (Azithromycin IVPB) ??500 mg, IVPB, Every 24 hours Citalopram 20 mg Tablet (citalopram 20 mg oral tablet) ??20 mg, By Mouth, Daily Dexamethasone 4 mg/mL Inj (Decadron Inj) ??6 mg 1.5 mL, IV Push Slowly, Daily Diltiazem 180 mg/24 hour CD Capsule (diltiazem 180 mg/24 hours oral capsule, extended release) ??360 mg, By Mouth, Daily Famotidine 20 mg Tablet (famotidine 20 mg oral tablet) ??20 mg, By Mouth, 2 times a day Gabapentin 100 mg Capsule (gabapentin 100 mg oral capsule) ??100 mg, By Mouth, 3 times a day Losartan 25 mg Tablet (losartan 25 mg oral tablet) ??25 mg, By Mouth, Daily Metoprolol 25 mg XL Tablet (metoprolol 25 mg oral tablet, extended release) ??25 mg, By Mouth, Daily Montelukast 10 mg Tablet (montelukast 10 mg oral tablet) ??10 mg, By Mouth, Daily NaCl 0.9% Flush 3ml (NaCL 0.9% Flush) ??3 mL, IV Push, Every 8 hours Pantoprazole 40 mg EC Tablet (pantoprazole 40 mg oral delayed release tablet) ??40 mg, By Mouth, Daily Piperacillin/Tazobactam 3.375 Gm Inj (Zosyn Extended IVPB) ??3.375 Gm, IVPB, Every 8 hours CONTINUOUS: (0) PRN: (8) Acetaminophen 325 mg Tablet (Acetaminophen Tablet) ??650 mg, By Mouth, Every 4 hours Albuterol/Ipratropium Inhalation Tricia 3mL (Duoneb Inhalation Solution) ??1 vials, BAND Nebulizer, Every 4 hours Dextromethorphan-Guaifenesin 20 mg-200 mg/10 mL Liqu UD (Robitussin DM Liquid) ??10 mL, By Mouth, Every 4 hours Melatonin 3 mg Tablet (Melatonin Tablet) ??3 mg, By Mouth, Daily at bedtime NaCl 0.9% Flush 3ml (NaCL 0.9% Flush) ??3 mL, IV Push, Every 8 hours Polyethylene Glycol 17 Gm Powder (MiraLax Powder) ??17 Gm 1 pack/packet, By Mouth, Daily Senna 8.6 mg / Docusate 50 mg tablet (Docusate/Senna Tablet) ??1 tablet, By Mouth, 2 times a day Simethicone 80 mg Chewable Tablet (Simethicone Tablet) ??80 mg, Chew, 3 times a day ? EKG study * Event Display: ECG 12-Lead Authored Date: Please click on pdf link to open report * Event Display: ECG 12-Lead Authored Date: Ventricular Rate: 87 BPM Atrial Rate: 87 BPM P-R Interval: 212 ms QRS Duration: 82 ms Q-T Interval: 346 ms QTC Calculation(Bazett): 416 ms P Cleveland: 90 degrees R Cleveland: 13 degrees T Cleveland: 15 degrees Sinus rhythm with 1st degree A-V block with Premature supraventricular complexes Otherwise normal ECG When compared with ECG of 04-JUL-2022 18:05, Non-specific change in ST segment in Inferior leads Confirmed by FREDA SHAY [facility] ([id number]) on 10/14/2022 10:32:24 AM [place]: [facility] * Doreen Castelan RN: PERFORM, SIGN, VERIFY Event Display: [facility] Authored Date: [id number] Patient: HATTIE ECHEVARRIA Age: 82 years Sex: Female : 1940 Associated Diagnoses: None Author: Doreen Castelan RN Findings Problem Related to Alteration in Respiratory Function (new) : Alteration in Respiratory Function/new 10/15/2022 5:00 EDT Alteration in Resp Status Related to COVID - 19, Other: resp failure & multifocal PNA Goals & Outcomes, Respiratory Pt will maintain/resume baseline physical assessment, Pt will maintain adequate nutritional intake, Pt will maintain/resume normal fluid/electrolyte balance, Pt willdemonstrate proper technique w/self care procedures Interventions, Respiratory Assess/monitor tolerance to IV infusions; verify rate/dose, Assess for and report S&S of respiratory distress, Position for comfort & optimal oxygenation, Monitor sputum color & consistency. Report changes to MD, Teach purse lip breathing as needed for breathing retraining Goals/Interventions, Respiratory Yes Respiratory, Problem Start 10/15/2022 5:05 . Evaluation Patient alert and oriented X3. SR on the monitor. Lungs diminished with occassional cough. Patient states feeling short of breath. O2 sat 96% on 2 liters via nasal cannula- seen by pulmonary nurse- oxygen removed. Received nebulizer treatment as ordered. Abdomen soft, non-tender, BS+. Denies pain. T olerating diet wihtiout difficulty. Patient to be discharged to home today. Will continue to monitor. . * Kay Schulte RN: SIGN, VERIFY, PERFORM, MODIFY Event Display: Progress Note Hospital Authored Date: [id number] Patient: HATTIE ECHEVARRIA Age: 82 years Sex: Female : 1940 Associated Diagnoses: None Author: Kay Schulte RN Findings Problem Related to Alteration in Respiratory Function (new) : Alteration in Respiratory Function/new 10/15/2022 5:00 EDT Alteration in Resp Status Related to COVID - 19, Other: resp failure & multifocal PNA Goals & Outcomes, Respiratory Pt will maintain/resume baseline physical assessment, Pt will maintain adequate nutritional intake, Pt will maintain/resume normal fluid/electrolyte balance, Pt willdemonstrate proper technique w/self care procedures Interventions, Respiratory Assess/monitor tolerance to IV infusions; verify rate/dose, Assess for and report S&S of respiratory distress, Position for comfort & optimal oxygenation, Monitor sputum color & consistency. Report changes to MD, Teach purse lip breathing as needed for breathing retraining Goals/Interventions, Respiratory Yes Respiratory, Problem Start 10/15/2022 5:05 Reviewed Plan with, Respiratory Patient Patient Progression, Respiratory Plan Initiation . Nursing Data Respiratory/Pulmonary Data. : Respiratory/Pulmonary Data. 10/15/2022 1:48 EDT Respiratory Symptoms Other: dyspnea w/ coughing Respiratory effort Unlabored Chest expansion Symmetrical Cough Productive, Able to clear secretion Respiratory pattern Regular Left Upper Lobe Breath Sounds Clear Right Upper Lobe Breath Sounds Clear Right Middle Lobe Breath Sounds Clear Left Lower Lobe Breath Sounds Clear, Coarse crackles Right Lower Lobe Breath Sounds Clear, Coarse crackles Respiratory distress None Respiratory Treatment(s) Cough and deep breathe Respiratory WNL except . Vital Signs : VITAL SIGNS SECTION 10/15/2022 3:22 EDT Temperature 98.0 DegF Temperature Route Oral Pulse Rate 74 bpm Respiratory Rate 18 br/min Systolic Blood Pressure 104 mm Hg Diastolic Blood Pressure 50 mm Hg L Blood pressure sites Arm, left Pulse Pressure 54 mm Hg Oxygen Saturation 98 % Liters per Minute 2 L/min Mode of Delivery (Oxygen) Nasal cannula 10/15/2022 0:17 EDT Temperature 98.3 DegF Temperature Route Oral Pulse Rate 89 bpm Respiratory Rate 17 br/min Systolic Blood Pressure 131 mm Hg Diastolic Blood Pressure 66 mm Hg Blood pressure sites Arm, left Mean Arterial Pressure 88 mm Hg Pulse Pressure 65 mm Hg Oxygen Saturation 98 % Liters per Minute 2 L/min Mode of Delivery (Oxygen) Nasal cannula . Evaluation Assumed care @2350. Pt is A&Ox4, standby w/ ambulation but steady on her feet and is on enhanced precautions for COVID-19. potline monitor in place showing NSR overnight. LS clear with slight crackles in bases. Pt is on 2L O2 NC, reports SOB when coughing and states having a productive cough w/ brown sputum but is able to clear her own secretions. Guaifenesin given for relief with positive effect. Abd is semi-firm but non-tender. VSS. Pt follows commands well, understood fall prevention education and was able to sleep well the majority of the shift. Hourly checks completed, call purcell inreach, bed in lowest position w/ alarm on and environment assessed for safety. See CIS for more information. Note * Doreen Castelan RN: PERFORM Event Display: Discharge/Transfer Note Hospital Authored Date: [id number] Nursing Discharge Note Entered On: 10/15/2022 13:26 EDT Performed On: 10/15/2022 13:25 EDT by Doreen Castelan RN Nursing Discharge Note 2 Discharge Time : 10/15/2022 13:15 EDT Discharge Level of Care at Discharge : Home/Custodial/Foster Care Patient Left Unit Via : Wheelchair Patient Accompanied Off Unit with : Responsible adult DC Instructions Provided & Signed by Pt : Yes Patient Understands D/C Instructions : Yes Patient Instructions Discharge Signed : Yes Did Pt have Specialty Bed or Wound Vac : No Flip HATFIELD, Doreen M - 10/15/2022 13:25 EDT * Shea SHAY, Jus Billingsley: PERFORM Event Display: Discharge/Transfer Note Hospital Authored Date: Patient: ??HATTIE ECHEVARRIA ? Age:??82 Years?Sex:??Female?:??1940?? Patient Information Discharge Location: W4 Primary Care Physician: Bridgette Hernandez MD Admit Date/Time: 10/14/22 01:28 Discharge Disposition Discharge Disposition: Home: No Services Discharge Diagnosis CAP (community acquired pneumonia) (J18.9) COVID-19 (U07.1) Allergic rhinitis Asthma Atrial fibrillation and flutter ?? _ Discharge Medications Albuterol (Ventolin HFA 108 mcg/inh inhalation aerosol with adapter)?1?puff(s)?Inhalation?4 times a day?as needed?for wheezing amiODARONE (amiodarone 200 mg oral tablet)?200?Milligram?1?tablet?By Mouth?Daily apixaban (Eliquis 5 mg oral tablet)?1?tab(s)?5?Milligram?By Mouth?2 times a day Citalopram (citalopram 20 mg oral tablet)?TAKE 1 TABLET BY MOUTH EVERY DAY Dexamethasone (dexamethasone 4 mg oral tablet)?1.5?tab(s)?6?Milligram?By Mouth?Daily in AM?for 7?Days Doxycycline (doxycycline hyclate 100 mg oral tablet)?100?Milligram?By Mouth?Every 12 hours?for 5?Days Famotidine (famotidine 20 mg oral tablet)?20?Milligram?1?tablet?By Mouth?2 times a day Fluticasone-Salmeterol (Advair Diskus 500 mcg-50 mcg inhalation powder)?1?inhalation?Inhalation?2 times a day?rinse mouth and throat after use Gabapentin (gabapentin 100 mg oral capsule)?TAKE 1 CAPSULE BY MOUTH 3 TIMES A DAY FOR 30 DAYS Losartan (losartan 25 mg oral tablet)?1?tab(s)?25?Milligram?By Mouth?Daily Metoprolol (Metoprolol Succinate ER 25 mg oral tablet, extended release)?TAKE 2 TABLETS BY MOUTHDAILY Montelukast (montelukast 10 mg oral tablet)?10?Milligram?1?tablet?By Mouth?Daily Pantoprazole (pantoprazole 40 mg oral delayed release tablet)?TAKE 1 TABLET BY MOUTH EVERY DAY ? Medications Started ?? -Dexamethasone -Doxycycline PCP Follow-Up/Heads-Up Please follow-up on leukocytosis which is secondary to dexamethasone and??bacterial/COVID infection Future Appointments Wednesday 1:00 PM EDT ?? With: Juan SHAY, Miguel Carrasco Where: [facility] [address] [place] [address]- 2022 1:00 PM EDT ?? With: Where: [facility] [address], [address] [place] [address]- 2022 1:30 PM EDT ?? With: Dawson KELLEY, Whitney Joiner Where: [facility] [address] [place] [id number]- Wednesday 11:20 AM EDT ?? With: Kwan SHAY, Renata Trejo Where: [facility] [address] [place] [address]- Hospital Course ?? Assessment:??82-year-old female admitted to the hospital for acute hypoxic respiratory failure in the setting of multifocal pneumonia, combination of??COVID and with superimposed bacterial, discharged home in stable condition with no oxygen needs on oral dexamethasone and antimicrobial treatments. ?? Multifocal pneumonia COVID-pneumonia??and possible superimposed bacterial pneumonia History of asthma Tested positive for COVID last Wednesday,??her chest x-ray with multifocal pneumonia, and CT??confirmsdense consolidations??diffusely but mostly on the left lung, Initially needed oxygen but improved with treatment and pulmonary rehab oxygen nurse evaluation on day of discharge did not see any need for oxygen Procalcitonin was elevated at 2.30 supporting treatment for bacterial pneumonia Was on Unasyn and azithromycin in hospital Discussed with antimicrobial stewardship and plan to continue dexamethasone for COVID treatment??and doxycycline monotherapy for bacterial pneumonia??at discharge Discharged in stable condition??with no oxygen requirements Patient will continue??home inhaler regiment with Advair and Spiriva?? Continue montelukast ?? A-fib Continue??diltiazem, amiodarone,??metoprolol, continue Eliquis ? Hypertension Continue losartan ?? No other medication changes were made from her chronic medications Objective Assessment and Plan Discharge Planning:? Measurements?? Height: 165 cm (10/15/22) Weight: 56.7 kg (10/15/22) Dry Weight: 60 kg (10/15/22) Body Mass Index: 20.83 kg/m2 (10/15/22) ? Vital Signs?? Temperature: 98.5 DegF (10/15/22 08:12:00) Temperature Route: Oral (10/15/22 08:12:00) Pulse Rate: 69 bpm (10/15/22 08:12:00) Respiratory Rate: 16 br/min (10/15/22 10:54:00) Systolic Blood Pressure: 112 mm Hg (10/15/22 08:12:00) Diastolic Blood Pressure: 56 mm Hg (10/15/22 08:12:00) Blood pressure sites: Arm, left (10/15/22 08:12:00) Mean Arterial Pressure: 75 mm Hg (10/15/22 08:12:00) Pulse Pressure: 56 mm Hg (10/15/22 08:12:00) Oxygen Saturation: 95 % (10/15/22 08:12:00) Liters per Minute: 2 L/min (10/15/22 08:12:00) Mode of Delivery (Oxygen): Nasal cannula (10/15/22 08:12:00) Early Warning Score: 5 (10/15/22 10:54:28) ? . Physical Exam ?? Constitutional: Alert, in no acute distress. Head EENT: Extraocular muscle movement intact.??Moist mucous membranes.?? Neck: Supple. No JVD. Respiratory: No wheezing, mild rhonchi. No use of accessory muscles. Cardiovascular: S1S2 regular. No murmurs, rubs or gallops. Gastrointestinal: Abdomen soft, non-tender, non-distended. Normal bowel sounds. Genitourinary: No CVA tenderness. Extremities: No lower extremity pitting??edema. No cyanosis or clubbing. Neurologic: AAOx3, Speech normal. No focal neurological deficits. Skin: No rash. Psychiatric: Normal mood and affect Pending Results Add On Lab Order ordered on 10/15/2022 Patient Education Titles Community-Acquired Pneumonia in Adults?? Coronavirus Disease 2019 (COVID-19): Overview?? Follow-Up Appointments Added Follow Up ?Time Frame ?Comments Bridgette Hernandez MD?Within one week Patient Instructions ?? -You were??admitted to the hospital??due to breathing difficulty and found to have COVID-pneumonia??as well as??superimposed bacterial pneumonia on both sides of your lungs -Fortunately oxygen assessment was done and you do not require any oxygen -You will complete dexamethasone steroids for your COVID treatment??and doxycycline oral antibiotics for your bacterial pneumonia treatment -You are discharged home in stable condition -Please follow-up with your primary care physician ?? Post Discharge Care Diet: Regular Diet Activity: As tolerated Condition: Stable Prognosis: Fair Discharge ?10/15/22 11:40:00 EDT Discharge Prescriptions ?ePrescribed, ??10/15/22 11:40:00 EDT Home Health Face to Face ^[facility] Results Discharge Labs BACTERIOLOGY MRSA PCR Result Positive, MRSA target DNA detected. ()?? 10/14/2022 12:59 S Aureus ??PCR Result Positive, SA target DNA detected. ()?? 10/14/2022 12:59 ?? BLOOD COUNT & DIFF WBC 16.9 k/mm3 (High)?? 10/15/2022 09:18 RBC 3.20 m/mm3 (Low)?? 10/15/2022 09:18 Hgb 10.1 Gm/dL (Low)?? 10/15/2022 09:18 Hct 30.4 % (Low)?? 10/15/2022 09:18 MCV 95.0 femtoliters ()?? 10/15/2022 09:18 MCH 31.6 pg ()?? 10/15/2022 09:18 MCHC 33.2 g/dL ()?? 10/15/2022 09:18 Platelet Count 161 k/mm3 ()?? 10/15/2022 09:18 RDW-SD 51.5 femtoliters (High)?? 10/15/2022 09:18 MPV 10.9 femtoliters ()?? 10/15/2022 09:18 Nucleated RBC (Automated) 0.0 #/100 WBC'S ()?? 10/15/2022 09:18 Abs. NRBC 0.0 k/mm3 ()?? 10/15/2022 09:18 Abs. Neut 11.2 k/mm3 (High)?? 10/14/2022 13:40 Abs. Lymph 0.2 k/mm3 (Low)?? 10/14/2022 13:40 Abs. Cabell 0.4 k/mm3 ()?? 10/14/2022 13:40 Abs. Eo 0.0 k/mm3 ()?? 10/14/2022 13:40 Abs. Baso 0.0 k/mm3 ()?? 10/14/2022 13:40 Neut % 93.9 % (High)?? 10/14/2022 13:40 Lymph % 1.8 % (Low)?? 10/14/2022 13:40 Cabell % 3.3 % (Low)?? 10/14/2022 13:40 Eos % 0.0 % ()?? 10/14/2022 13:40 Baso % 0.3 % ()?? 10/14/2022 13:40 RBC Morphology MODERATE ()?? 10/14/2022 13:40 Imm Gran 0.7 % ()?? 10/14/2022 13:40 Abs. Imm Gran 0.1 k/mm3 ()?? 10/14/2022 13:40 ? CARDIAC Nt-Probnp 1036 pg/mL (High)?? 10/13/2022 23:21 High Sensitivity Troponin (HSTnT) 19 ng/L (High)?? 10/13/2022 23:21 ?? CHEM GENERAL Sodium 141 mmol/L ()?? 10/15/2022 09:18 Potassium 3.8 mmol/L ()?? 10/15/2022 09:18 Chloride 109 mmol/L (High)?? 10/15/2022 09:18 Bicarbonate Level 19 mmol/L (Low)?? 10/15/2022 09:18 Anion Gap 13 ()?? 10/15/2022 09:18 Glucose Level 209 mg/dL (High)?? 10/15/2022 09:18 BUN 30 mg/dL (High)?? 10/15/2022 09:18 Creatinine-Blood 1.1 mg/dL (High)?? 10/15/2022 09:18 Estimated GFR Creatinine 53 ML/MIN/1.73 M2 ()?? 10/15/2022 09:18 Calcium 8.4 mg/dL (Low)?? 10/14/2022 13:40 Magnesium 2.6 mg/dL (High)?? 10/15/2022 09:18 ? HEME OTHER Hold Blue Top SPECIMEN DISCARDED AFTER 4 HOURS. ()?? 10/13/2022 23:21 ? MISC. CHEMISTRY 25 OH-Vitamin D Level 23.7 ng/mL ()?? 10/14/2022 13:40 Procalcitonin 2.30 ng/mL ()?? 10/15/2022 09:18 ?? URINE OTHER Est Creatinine Clearance 36.04 mL/min ()?? 10/15/2022 00:33 ? Microbiology ?? MRSA PCR Nasal Swab?? Completed?? Source: Swab Body Site: Nares Both Collected Dt/Tm: 10/14/2022 08:50 Last Updated Dt/Tm: 10/14/2022 15:30 ? Imaging(s) ?CT Angio Chest ?? 10/14/2022 02:58??by Leonardo Taveras MD ?Significantly limited due to respiratory motion and contrast timing. No large central or lobar pulmonary embolism. ?? Multifocal areas of consolidation throughout the left lung and a small amount of consolidation in the right lung base most suggestive of pneumonia. A follow-up chest CT in 6-8 weeks on appropriate treatment is recommended to assess for resolution/improvement, given that some of these areas of consolidation are vaguely nodular in appearance. ?? Mild mediastinal lymphadenopathy is favored be reactive. Attention on follow-up is recommended. ?? Large type III paraesophageal hernia. ? 38_ minutes spent on discharge * Marion HATFIELD, Viktoriya: PERFORM Event Display: Patient Education/Instruction Authored Date: [id number] [place] [address] Name: HATTIE ECHEVARRIA : 1940 Visit: 10/14/2022 01:28:00 Current Date: 10/15/2022 11:42 Account: [id number] Inpatient Adult Discharge Instructions We would like to thank you for allowing us to assist you with your healthcare needs. The following includes patient education materials and information regarding your injury/illness. Our entire staffstrives to provide an excellent experience for our patients and their families. PLEASE ENSURE YOU FOLLOW-UP PER THE INSTRUCTIONS BELOW! ?? YOUR OPINION IS IMPORTANT TO US! Please complete the survey you may receive by mail or email. Your feedback will be used to make improvements to the healthcare experiences of our patients and their families. Surveys are administered by [employer] ?? If further treatment with your primary care physician or another doctor is recommended, it is important for you to keep the appointment. Call your primary care physician or return to the Emergency Department immediately if your condition worsens, fails to improve, or new symptoms develop. If you need to find a doctor, you can call [facility] [employer] for a referral at [phone] or toll free at [phone]) or log in to [email or web address].. ?? You can view and manage your care through the patient portal or by using a health care filemon of your choosing. [employer] is a website that allows you to securely view your medical information including your hospital discharge summary, office visit summaries, medications and follow-up visits. You can also request appointments, renew medications, and request access to your medical information using a health care filemon of your choosing, or just ask a question. You can enroll at [email or web address] or register during your next office visit. You have been discharged from [facility], Patient Care Unit: W4. If you have any questions regarding these instructions after you leave, please call us and we will be happy to assist you. [facility] Your Care Team Attending Physician Jus Valdivia MD Discharging Providers Jus Valdivia MD Reason for Your Visit pos covid wednesday, SOB today ems found at 90% RA placed on 4L with improvement to 94-95%, prod coughw/ brown sputum.. also c/o of dizziness Your Diagnosis CAP (community acquired pneumonia) COVID-19 Shortness of breath Tests Performed Below is a partial list of the tests performed during your hospitalization. You may have had other tests and procedures not included in this list. Please discuss all test results with your provider. 25OH VITAMIN D Basic Metabolic Panel BNP BUN CBC CBC w/ Differential Creatinine Electrolytes Glucose Level HOLD BLUE TUBE Magnesium Level MRSA PCR Nasal Swab Procalcitonin Level Troponin T, High Sensitivity CT Angio Chest CXR Portable Primary Care Provider Mary SHAY, Bridgette Archibald Advance Directive . Discharge Vitals Temperature: 98.5 DegF Height: 165 cm Pulse Rate: 69 bpm Weight: 56.7 kg Respiratory Rate: 16 br/min Body Mass Index: 20.83 kg/m2 Systolic Blood Pressure: 112 mm Hg Body surface area: 1.61 Diastolic Blood Pressure: 56 mm Hg ?? Oxygen Saturation: 95 % ?? Studies Pending All tests and labs ordered during this hospital stay have been completed unless listed below. Please discuss all pending results with your provider listed above in these instructions. ?? Add On Lab Order What to do next Instructions From Your Doctor ?? -You were??admitted to the hospital??due to breathing difficulty and found to have COVID-pneumonia??as well as??superimposed bacterial pneumonia on both sides of your lungs -Fortunately oxygen assessment was done and you do not require any oxygen -You will complete dexamethasone steroids for your COVID treatment??and doxycycline oral antibiotics for your bacterial pneumonia treatment -You are discharged home in stable condition -Please follow-up with your primary care physician ?? Discharge Orders Diet:??Regular Diet Activity:??As tolerated Condition:??Stable Prognosis:??Fair Scheduled Follow-Up Appointments Wednesday 1:00 PM EDT ?? With: Juan SHAY, Miguel Carrasco Where: [facility] [address] [place] [id number]- 2022 1:00 PM EDT ?? With: Where: [facility] [address] [place] [address], [address] [place] [address]- 2022 1:30 PM EDT ?? With: Dawson KELLEY, Whitney Joiner Where: [facility] [address] [place] [address]- Wednesday 11:20 AM EDT ?? With: Renata Bowens MD Where: [facility] [address] [place] [address]- You Need to Schedule the Following Appointments Follow Up with??Mary SHAY, Bridgette Archibald When??Within Within one week Where: ?? Discharge Medications HATTIE ECHEVARRIA :1940 Visit Date:10/14/2022 Medications: Please continue your medications until treatment is completed or stopped by your provider. Medications not listed below should be discontinued. Discuss any questions related to medications with your provider. What How Much When Instructions Next Dose New Dexamethasone (dexamethasone 4 mg oral tablet) 1.5 tab(s) Oral Daily in the morning Duration: 7 Days Pickup at [facility] 3 10/16 9am tomorrow New Doxycycline (doxycycline hyclate 100 mg oral tablet) 100 Milligram Oral Every 12 hours Duration: 5 Days Pickup at [facility] 3 10/15 @ 9pm tonight Changed Albuterol (Ventolin HFA 108 mcg/ inh inhalation aerosol with adapter) 1 puff(s) Inhalation 4 times a day as needed for for wheezing as needed Changed Citalopram (citalopram 20 mg oral tablet) TAKE 1 TABLET BY MOUTH EVERY DAY ?? 10/16 9am tomorrow Changed Diltiazem (DilTIAZem (Eqv-Cardizem CD) 360 mg/ 24 hours oral capsule, extended release) 10/16m tomorrow Changed Famotidine (famotidine 20 mg oral tablet) 1 tab(s) Oral Twice a day 10/15pm tonight Changed Fluticasone-Salmeterol (Advair Diskus 500 mcg-50 mcg inhalation powder) 1 inhalation Inhalation Twice a day rinse mouth and throat after use ?? 10/15 9am tomorrow Changed Gabapentin (gabapentin 100 mg oral capsule) TAKE 1 CAPSULE BY MOUTH 3 TIMES A DAY FOR 30 DAYS ?? 10/15 @ 3pm today Changed Losartan (losartan 25 mg oral tablet) 1 tab(s) Oral Daily 10/16m tomorrow Changed Metoprolol (Metoprolol Succinate ER 25 mg oral tablet, extended release) TAKE 2 TABLETS BY MOUTH DAILY ?? 10/16 9a tomorrow Changed Montelukast (montelukast 10 mg oral tablet) 1 tab(s) Oral Daily 10/16 tomorrow Changed Pantoprazole (pantoprazole 40 mg oral delayed release tablet) TAKE 1 TABLET BY MOUTH EVERY DAY ?? 10/16 9a tomorrow Changed Tiotropium (Spiriva HandiHaler 18 mcg inhalation capsule) 10/16 9am tomorrow Changed apixaban (Eliquis 5 mg oral tablet) 1 tab(s) Oral Twice a day 10/15 9pm tonight Unchanged amiODARONE (amiodarone 200 mg oral tablet) 1 tab(s) Oral Daily 10/16 @ 9am tomorrow Pharmacy Information [facility] 3: [address] [place], [place] [id number] [phone] ?? What How Much When Why Comments Stop Taking Azithromycin (Azithromycin 5 Day Dose Pack 250 mg oral tablet) See instructions as directed on package labeling 2 tablets first day then 1 tablet daily for 4 more days ?? Stop Taking Cetirizine (cetirizine 10 mg oral tablet) 1 tab(s) Oral Daily Stop Taking Cholecalciferol (Vitamin D3) 1,000 International Unit Oral Stop Taking Diclofenac Topical (diclofenac 1% topical gel) 1 filemon Topically 4 times a day as needed for for pain Stop Taking Durable Medical Equipment (Aerochamber) See instructions Use as directed with albuterol inhalor Dx: asthma. ?? Stop Taking Fluticasone Nasal (Flonase 50 mcg/ inh nasal spray) 2 spray(s) Nares, Both Daily in the morning Chronic rhinitis Stop Taking Loratadine (loratadine 10 mg oral tablet) 1 tab(s) Oral Daily Stop Taking Multivitamin Daily Stop Taking PredniSONE (predniSONE 10 mg oral tablet) See instructions 4 tab x 2d, 3 tab x 2d, 2 tab x 2d 1st dose now, then with food in AM. ?? Test Results Below is a partial list of the most recent Laboratory test results done prior to this discharge. You may have had other tests and procedures not included in this list. Please discuss all test resultswith your provider. Est Creatinine Clearance - 36.04 mL/min (10/15/2022) 25OH VITAMIN D (10/14/2022) ???25 OH-Vitamin D Level - 23.7 ng/mL Basic Metabolic Panel (10/14/2022) ???Sodium - 137 mmol/L???Potassium - 4.0 mmol/L???Chloride - 108 mmol/L???Bicarbonate Level - 20 mmol/L???Anion Gap - 9???Glucose Level - 158 mg/dL???BUN - 24 mg/dL???Creatinine-Blood - 1.1 mg/dL???Estimated GFR Creatinine - 51 ML/MIN/1.73 M2???Calcium - 8.4 mg/dL BNP (10/13/2022) ???Nt-Probnp - 1036 pg/mL BUN (10/15/2022) ???BUN - 30 mg/dL CBC (10/15/2022) ???WBC - 16.9 k/mm3???RBC - 3.20 m/mm3???Hgb - 10.1 Gm/dL???Hct - 30.4 %???MCV - 95.0 femtoliters???MCH - 31.6 pg???MCHC - 33.2 g/dL???Platelet Count - 161 k/mm3???RDW-SD - 51.5 femtoliters???MPV - 10.9 femtoliters???Nucleated RBC (Automated) - 0.0 #/100 WBC'S???Abs. NRBC - 0.0 k/mm3 CBC w/ Differential (10/14/2022) ???WBC - 11.9 k/mm3???RBC - 3.20 m/mm3???Hgb - 10.0 Gm/dL???Hct - 30.4 %???MCV - 95.0 femtoliters???MCH - 31.3 pg???MCHC - 32.9 g/dL???Platelet Count - 135 k/mm3???RDW-SD - 51.0 femtoliters???MPV - 10.6 femtoliters???Nucleated RBC (Automated) - 0.0 #/100 WBC'S???Abs. NRBC - 0.0 k/mm3???Abs. Neut - 11.2 k/mm3???Abs. Lymph - 0.2 k/mm3???Abs. Cabell - 0.4 k/mm3???Abs. Eo - 0.0 k/mm3???Abs. Baso - 0.0 k/mm3???Neut % - 93.9 %???Lymph % - 1.8 %???Cabell % - 3.3 %???Eos % - 0.0 %???Baso % - 0.3 %???RBC Morphology - MODERATE???Imm Gran - 0.7 %???Abs. Imm Gran - 0.1 k/mm3 Creatinine (10/15/2022) ???Creatinine-Blood - 1.1 mg/dL???Estimated GFR Creatinine - 53 ML/MIN/1.73 M2 Electrolytes (10/15/2022) ???Sodium - 141 mmol/L???Potassium - 3.8 mmol/L???Chloride - 109 mmol/L???Bicarbonate Level - 19 mmol/L???Anion Gap - 13 Glucose Level (10/15/2022) ???Glucose Level - 209 mg/dL HOLD BLUE TUBE (10/13/2022) ???Hold Blue Top - SPECIMEN DISCARDED AFTER 4 HOURS. Magnesium Level (10/15/2022) ???Magnesium - 2.6 mg/dL MRSA PCR Nasal Swab (10/14/2022) ???MRSA PCR Result - Positive, MRSA target DNA detected.???S Aureus PCR Result - Positive, SA target DNA detected. Procalcitonin Level (10/15/2022) ???Procalcitonin - 2.30 ng/mL Troponin T, High Sensitivity (10/13/2022) ???High Sensitivity Troponin (HSTnT) - 19 ng/L Allergies (NKA means No Known Allergies) Augmentin??(nausea) Problems Active Problems??(27) Abdominal hernia?? Abnormal urine color?? Adenomatous polyp of colon?? Allergic rhinitis?? Anemia?? Anxiety?? Asthma?? Atrial fibrillation and flutter?? Bilateral nephrolithiasis?? Bladder stones?? Breast pain, left?? h/o Hypertension?? H/O sebaceous cyst?? Hematuria?? Hiatal hernia with gastroesophageal reflux?? History of basal cell carcinoma of skin?? Hx of breast cancer?? Left-sided chest wall pain?? Localized osteoarthritis of knee?? LUQ abdominal pain?? Osteoarthritis of left knee?? Osteoporosis?? Popliteal pain?? Rotator cuff syndrome of left shoulder?? SVT (supraventricular tachycardia)?? Trigger middle finger?? Wrist injury?? Education Materials Below is the list of Educational Leaflet Providered with your Discharge Instructions. Community-Acquired Pneumonia in Adults?? Coronavirus Disease 2019 (COVID-19): Overview?? Valuables and Belongings I fully understand and agree that [facility] accepts no responsibility for all my personal property including clothing, toilet articles, radios, jewelry, dentures, hearing aids, rings, money, or any other property that is in my possession or is brought to me after admission. I understand certain valuables may be placed in a hospital safe for a short period of time. I understand that the hospital is not liable for loss or damage due to accident, fire, or other natural occurrence while said property is in the safe. I accept full responsibility for any personal property that I keep with me, and will not hold the hospital responsible in case of loss or disappearance. I acknowledge that i have been encouraged to send valuables and belongings home. ?? Review of Valuable and Belonging List: With patient, With witness Date for Pt to Sign Valuables/Belongings: 10/15/22 00:09:00 ?? Other Discharge Information ? Case Management Discharge Plan?? Discharge Plan?? Discharge Level of Care at Discharge: Home/Custodial/Foster Care ?? Pulmonary Rehab Status?? Pulmonary Rehab Discharge Status?? Respiratory Rate: 16 br/min ? Common Emergency Awareness Tips IS IT A STROKE? Act FAST and Check for these signs: FACE Does the face look uneven? ARM Does one arm drift down? SPEECH Does their speech sound strange? TIME Call at any sign of stroke ?? Heart Attack Signs Chest discomfort: Most heart attacks involve discomfort in the center of the chest and lasts more than a few minutes, or goes away and comes back. It can feel like uncomfortable pressure, squeezing, fullness or pain. Discomfort in upper body: Symptoms can include pain or discomfort in one or both arms, back, neck, jaw or stomach. Shortness of breath: With or without discomfort. Other signs: Breaking out in a cold sweat, nausea, or lightheaded. Remember, MINUTES DO MATTER. If you experience any of these heart attack warning signs, call to get immediate medical attention! ?? Smoking can increase your chances of developing chronic health problems and can cause harmful effects to other family members in your house. If you smoke, you are strongly encouraged to quit. Please call [employer] at [phone] or [phone] ([phone]) or log in to [email or web address] for referrals to smoking cessation programs. ?? 738 Suicide & Crisis Lifeline is available 11/01 if you or someone you know needs to find a reason to keep living. By calling 988 you'll be connected to a skilled, trained counselor at a crisis center in your area. INPATIENT DISCHARGE INSTRUCTIONS SIGNATURE PAGE HATTIE ECHEVARRIA Location:[facility] Registration Date and Time:10/14/2022 01:28 EDT Primary Care Physician: Mary SHAY, Bridgette Archibald, I HATTIE ECHEVARRIA, have received the above patient education materials/instructions and have verbalized understanding. If ambulance or transport services are being used I further acknowledge being given a choice of service. ?? If you need to contact me, please call me at this number: . Patient/Electrical Tester Name: Patient/Electrical Tester Signature: Relationship to Patient: Witness Name/Signature: Date: * Jus Valdivia MD H: PERFORM Event Display: Patient Education Leaflets Authored Date: [id number] Community-Acquired Pneumonia in Adults ?? 606 Community-Acquired Pneumonia in Adults What is community-acquired pneumonia? Pneumonia is a type of lung infection. It can cause breathing problems and other symptoms. In community-acquired pneumonia (CAP), you get infected in a community setting. It doesn???t happen in a hospital, long term, or other healthcare center. Your lungs are part of your respiratory system. This system supplies fresh oxygen to your blood andremoves carbon dioxide, a waste product. When you breathe in air through your nose and mouth, it reaches the tiny air sacs of the lung (alveoli) through a series of tubes. From here, oxygen flows into your blood. Carbon dioxide flows out from the blood into the alveoli. You then breathe it out. Many germs can grow inside and on your body and cause disease. Certain germs can cause lung infection and pneumonia when they get into the lungs. This can cause your respiratory system to work poorly. For example, oxygen may not be able to get into your blood as easily. That can cause shortness of breath. Pneumonia may lead to if your body can???t get enough oxygen to survive. Sometimes these germs can spread from person to person. When someone infected with one of these germs sneezes or coughs, you might breathe the germs into your lungs. The germs may grow and cause pneumonia if your immune system doesn???t kill the germs first. CAP can result from infection with many types of germs. These include bacteria, viruses, fungi, andparasites. Symptoms from pneumonia can range from mild to severe. Certain types of germs are more likely to lead to serious infection. CAP is more common during the winter months. It's also more common in older adults. But it can affect people of any age. It can be very serious, especially in older adults, young children, and peoplewith other health problems. ?? What causes community-acquired pneumonia? Many different types of germs can cause pneumonia. But certain types cause CAP more often. Worldwide, Streptococcus pneumoniae is a type of bacteria that is most often responsible for CAP in adults. Some other common bacteria that cause CAP are: ??? Haemophilus influenzae ??? Mycoplasma pneumoniae ??? Chlamydia??pneumoniae ??? Legionella ??? Gram-negative bacilli ??? Staphylococcus aureus The flu (influenza) virus is also a major viral cause of CAP. Having the flu also makes you more likely to get bacterial pneumonia. This type is often worse than viral pneumonia. Other types of viruses can also cause CAP. These include SARS-CoV-2 (the cause of COVID-19), parainfluenza virus, echovirus, adenovirus, and coxsackievirus. In fact, viruses are likely the cause of most episodes of CAP. Fungi and parasites may also cause CAP. ?? Who is at risk for community-acquired pneumonia? Certain things may raise your risk for CAP. Some of these are: ??? Smoking ??? Weak immune system, such as from medicines or a health problem such as diabetes, cancer, or HIV ??? Other lung problems, such as COPD (chronic obstructive pulmonary disease) ??? Otherhealth problems, such as kidney failure ??? Use of certain medicines, including proton-pump inhibitors ??? Heavy alcohol use You also have a higher risk if you come into contact with other people who have pneumonia. ?? What are the symptoms of community-acquired pneumonia? Symptoms of CAP often develop quickly. These symptoms may include: ??? Shortness of breath ??? Coughing ??? Heavy sputum ??? Fever and chills ??? Chest pain that is worse when you breathe or cough ??? Upper belly (abdomen) pain with nausea, vomiting, or diarrhea Your healthcare provider might notice other signs. These are a fast heartbeat, fast breathing rate,or certain sounds on a lung exam. ?? How is community-acquired pneumonia diagnosed? Your healthcare provider will ask about your more recent symptoms and your past health problems. They will also do a physical exam, including a careful exam of your lungs. Lab tests can be very helpful in diagnosing CAP. Some tests you might need are: ??? Chest X-ray, which often confirms the diagnosis ??? Blood tests to check for infection and oxygen status of your blood ??? Blood culture tests to see if a germ is growing in your bloodstream ??? Tests of your sputumto see if a germ is present there ??? Urine tests for certain bacteria ??? Swab of your nose or thro at to test for viruses or bacteria ?? How is community-acquired pneumonia treated? Your treatment may vary based on your symptoms and the type of germ causing the pneumonia. If you have severe pneumonia, you will likely need to stay in the hospital for some time. If you only have mild symptoms, you can probably get treatment at home. Antibiotics are a guzman treatment for bacterial CAP. Certain viral forms of CAP may also be treated with antiviral medicine. But for many viral causes there is no specific medicine. If needed, your healthcare provider will likely start you on an antibiotic or antiviral medicine even before finding out the type of bacteria or virus. The type of antibiotic can vary based on the germs known to be in your community, as well as your other health problems. Your healthcare provider will want to treat you with an antibiotic that is likely to kill whatever germ is causing your illness. Antibacterial antibiotics don't help in treating viral pneumonia. They can often cause more harm than good. For treatment at home, you will probably take an antibiotic by mouth for 5 to 7 days. In most cases, you will start to feel better a few days after you start treatment. If you need to stay in the hospital, you will also need antibiotics specific to your case. In some cases, you may need to take these by IV (intravenously). Your healthcare provider might first start you on a certain antibiotic. They might then switch you to another as your blood tests show what kind of germ is causing your infection. You may also need extra support. This includes: ??? Extra oxygen ??? Fluids, if you are dehydrated ??? Breathing treatments ??? Respiratory support, such as with a ventilator, for a severe case Most people start getting better with treatment within a few days. A small portion of people who are treated in the hospital don???t respond to treatment within this time. If your symptoms don???t end, you may need a different antibiotic or treatment for complications from CAP. ?? What are possible complications of community-acquired pneumonia? Lung abscess and, rarely, empyema are possible complications of CAP. In empyema, a collection of pus builds in the space between the lung and the chest wall. You usually need antibiotics and drainageto treat it. A CT scan can often help diagnose these problems. Respiratory failure and are other possible complications. These are more likely to happen in older adults or those with other health problems. ?? What can I do to prevent community-acquired pneumonia? You can lower your chances of getting CAP by having a yearly flu shot. The pneumococcal vaccines protect against S. pneumoniae and may help in preventing CAP. Healthcare providers advise this shot for all people older than 65. You may need it before this time if you have: ??? Chronic heart, lung, liver, or kidney disease ??? Diabetes ??? Alcoholism ??? HIV ??? Weak immune system Smokers and people living in long-term care facilities should also get this shot before age 65. There are 2 vaccines against S. pneumoniae. Your healthcare provider may advise that you get both. You may need booster shots of the vaccine if you have your first pneumococcal vaccine before age 65 or if you have a weakened immune system. Practicing good hygiene can also help you lower your risk for CAP. That includes frequent handwashing. ?? When should I call my healthcare provider? Get treatment right away if you have symptoms of pneumonia. If you are being treated for CAP as an outpatient, call your healthcare provider if your symptoms don???t get better in a few days after starting treatment, or they get worse. ?? Guzman points about community-acquired pneumonia ??? Pneumonia is a type of lung infection. It can cause breathing problems and other symptoms. In CAP, infection occurs outside of a healthcare setting. ??? CAP is a leading cause of in older adults. Most healthy young adults recover from CAP without a problem. ??? CAP can cause shortness of breath, fever, and cough. ??? You might need to stay in the hospital to be treated for CAP. ??? Most cases of CAP are caused by viruses and don't need treatment with antibiotics. ??? Antibiotics are the guzman treatment for most types of CAP caused by bacteria. Antiviral medicine may be prescribed for certain viral causes of pneumonia. ??? Getting your vaccines as advised can help lower your risk for CAP. ?? Next steps Tips to help you get the most from a visit to your healthcare provider: ??? Know the reason for your visit and what you want to happen. ??? Before your visit, write down questions you want answered. ??? Bring someone with you to help you ask questions and remember what your provider tells you. ??? At the visit, write down the name of a new diagnosis, and any new medicines, treatments, or tests. Also write down any new instructions your provider gives you. ??? Know why a new medicine or treatment is prescribed, and how it will help you. Also know what the side effects are. ??? Ask if your condition can be treated in other ways. ??? Know why a test or procedure is recommended and what the results could mean. ??? Know what to expect if you do not take the medicine or have the test or procedure. ??? If you have a follow-up appointment, write down the date, time, and purpose for that visit. ??? Know how you can contact your provider if you have questions. ?? Last Reviewed Date: 2022 ?? [employer]. All rights reserved. This information is not intended as a substitute for professional medical care. Always follow your healthcare professional's instructions. ?? * Shea SHAY, Jus H: PERFORM Event Display: Patient Education Leaflets Authored Date: [id number] Coronavirus Disease 2019 (COVID-19): Overview ?? 71629 Coronavirus Disease 2019 (COVID-19): Overview Coronavirus disease 2019 (COVID-19) is an illness that infects the lungs. It's caused by a type of coronavirus. The virus is called SARS-CoV-2. There are many types of coronaviruses. They are a common cause of colds and bronchitis. They can cause a lung infection called pneumonia. Symptoms can range from mild to severe. Some people have no symptoms. These types of viruses are also found in some animals. Viruses change (mutate) all the time. The changes lead to different forms of a virus. These are called variants. COVID-19 variants may spread more easily from person to person. They may cause milder symptoms. Or they may cause more severe symptoms.?? The virus spreads and infects people easily. It can infect a person more easily if they are not immune to it. The virus most often spreads through droplets of fluid that a person coughs or sneezes into the air. In some cases, you can get it from touching a surface with the virus on it and then touching your eyes, nose, or mouth. To help prevent spreading the infection, wash your hands often, or use an alcohol-based hand common[employer] attorney. To learn more For the latest from the CDC: ??? Go to the CDC website ??? Call 186-VDV-LYDR ([phone]) ?? What are the symptoms of COVID-19? Some people have no symptoms. Some have mild symptoms. Others may have severe symptoms. This variesfrom person to person. Symptoms may start 2 to 14 days after contact with the virus. They can include: ??? Fever ??? Chills ??? Coughing ??? Trouble breathing or feeling short of breath ??? Sore throat ??? Stuffy or runny nose ??? Headache ??? Body aches ??? Tiredness ??? Nausea, vomiting, diarrhea, or belly pain ??? New loss of sense of smell or taste ?? What are possible complications of COVID-19? The virus can cause an infection in the lungs. This is called pneumonia. This can lead to in some cases. Experts are still learning more about COVID-19 problems. Problems may include: ??? Low blood pressure ??? Kidney failure ??? Inflammation of the brain or heart ??? Rashes Some people are at higher risk for problems. This includes: ??? Older adults ??? People with heart or lung disease ??? People with diabetes or kidney disease ??? People with health conditions that limit the immune system ??? People who take medicines that limit the immune system Rarely, a child may have a severe complication. This is called multisystem inflammatory syndrome inchildren (MIS-C). MIS-C seems to be like Kawasaki disease. This is a rare illness. It causes swelling of blood vessels and body organs. MIS can also happen in adults. But this is less common. ? How is COVID-19 diagnosed? Your healthcare provider will ask: ??? What symptoms you have ??? Where you live ??? If you???ve traveled recently ??? If you???ve hadcontact with sick people ??? If you are vaccinated against COVID-19 ??? If you have had COVID-19 You may have 1 of these tests for COVID-19: ??? Viral (molecular) test. You may also hear this called a PCR or RT-PCR test. Viral tests are very accurate. A viral test looks for the genetic material (RNA) of the SARS-CoV-2 virus. There are a few ways to do this. A swab may be wiped inside your nose or throat. Or a long swab may be put into your nose down to the back of your throat. Or a sample of your saliva may be taken. Your test results may be back in 45 minutes to a few hours. This depends on the type of test. Some tests must be sentto a lab. These can take several days for the results. You can now get test kits to use at home. Some of these need a prescription. Follow the instructions in the kit closely if you use a home kit. Some kits show results quickly at home. Others must be sent to a lab for the results. ??? Antigen test. This can find proteins from the SARS-CoV-2 virus. A swab may be wiped inside your nose or throat.Or a long swab may be put into your nose down to the back of your throat. Some results are back within 15 to 60 minutes. This depends on the type of test. Positive results are very accurate. But false positive results can happen. And the results can be negative even in people with COVID-19. Antigen tests are more likely to miss a COVID-19 infection than a viral (molecular) test. You may need to have a viral test if your antigen test is negative but you have symptoms of COVID-19. ??? Breath test. This rapid test is not widely available at this time. It finds SARS-CoV-2 infection in the breath.The test is done at providers' offices, hospitals, and mobile testing sites. You may have other tests if your provider thinks or confirms that you have COVID-19. These tests may include: ??? Antibody blood test. This type of test can show if you had the virus in the past. It shows antibodies for the virus in the blood. The accuracy of these tests varies. And they are not available everywhere. An antibody test may not show if you have an infection right now. This is because it can take up to a few weeks for your body to make antibodies. None of the antibody tests can yet be used to tell if a person is immune to the virus. ??? Sputum culture. If you have a wet cough, you may be asked to cough up a bit of mucus (sputum) from your lungs. This is tested for the virus. It may be tested for pneumonia. ??? Imaging tests. You may have a chest X-ray or CT scan. Can you get COVID-19 again? Yes, you can get COVID-19 more than once. You may not have immunity. You could have lost the immunity. Or you may get COVID-19 from a different strain (variant) of the virus that you are not immune to. But the COVID-19 vaccine helps lower the risk for COVID-19. ?? Vaccines for COVID-19 The FDA and CDC advise vaccines for people 6 months and older to help prevent COVID-19. The vaccines can also make the illness less severe. It can keep you from needing to go to the hospital.?? And it can prevent the spread of the virus to others. No vaccine is 100% effective at preventing an illness. But getting a vaccine is important. or people can have the vaccine. Updated (bivalent) mRNA vaccines from [employer] and [employer] are advised. Other options are available for people who can't or won't get an mRNA vaccine. These are Novavax and J&J PrimeRevenue COVID-19 vaccines. COVID-19 vaccines are given as a shot (injection) into the muscle. Ask your healthcare provider which vaccine is best for you and your family. COVID-19 vaccine booster shots People ages 6 months or older can get a COVID-19 booster shot. It's given a few months after their primary series. Boosters can help with protection against COVID-19 that may have decreased over time. Booster advice varies by vaccine, age, health, and COVID-19 variants. People ages 65 and older and some people with a very weak immune system should get an updated (bivalent) mRNA booster. Talk with your provider about your risk and how this applies to you. ?? How is COVID-19 treated? The best treatments right now are those to help your body while it fights the virus. This is calledsupportive care. It includes: ??? Rest. This helps your body fight the illness. ??? Fluids. Try to drink 6 to 8 glasses of fluidsevery day. Ask your provider which drinks are best for you. Don't have drinks with caffeine or alcohol. ??? Mcbg-gsp-tbuzrdi (OTC) medicine. These are used to help ease pain and reduce fever. Ask your provider which OTC medicine is safe for you to use. Talk with your provider if you have confirmed COVID-19. You may qualify for medicines approved by the FDA to prevent severe COVID-19 infection. You may need to stay in the hospital for severe illness. Your care may include: ??? IV fluids. These are given through a vein. This helps to replace fluids in your body. ??? Oxygen. You may be given extra oxygen. Or you may be put on a breathing machine (ventilator). This is done so you get enough oxygen in your body. ??? Prone positioning. Your healthcare team may regularly turn you on your stomach. This is called prone positioning. It helps increase the amount of oxygen you get to your lungs.Follow their instructions on position changes while you're in the hospital and at home. ??? Antiviral medicines. Antivirals stop the SARS-CoV-2 virus from spreading in the body. The FDA has approved certain antiviral medicines to treat mild to moderate COVID-19 in people who are more likely to get very sick. These treatments are not available for everyone. Talk with your provider to learn more. ??? Steroids or other anti-inflammatory medicines. These are used to lessen the inflammation that some people with COVID-19 have. Inflammation can lead to more trouble breathing. It can cause other complications or . ??? Monoclonal antibodies. These were once used for earlier COVID-19 strains, but monoclonal antibody treatment is not effective for the latest variant. Talk with your provider silva more. ??? COVID-19 convalescent plasma. Plasma is the liquid part of blood. People who had COVID-19 may be asked to donate plasma. This is called COVID-19 convalescent plasma. The plasma may have antibodies. Some people with COVID-19 who have very weak immune systems may benefit from this treatment. Your provider can help decide if it's right for you. ?? Are you at risk for COVID-19? You are at risk for COVID-19 if any of these apply to you: ??? You live in or traveled to an area with cases of COVID-19 ??? You had close contact (within 6 feet) with someone who had COVID-19 COVID-19 may be spread by people who don't show symptoms. Date last modified: 10/12/2022 ?? Last Reviewed Date: 2021 ?? [id number] [employer]. All rights reserved. This information is not intended as a substitute for professional medical care. Always follow your healthcare professional's instructions. ?? Portable XR Chest Views * [facility] , CIS S: TRANSCRIBE Levi Fonseca MD: VERIFY Event Display: Result: Authored Date: [id number] Chest Portable Reason: Shortness of Breath; Clinical Question(s): Pneumonia COMPARISON: 10/09/2022 FINDINGS: LINES AND TUBES: None. LUNGS AND PLEURA: Patchy density seen throughout much of the left lung. Findings suspicious for pneumonia given the interval change from recent exam. No pleural effusion. No pneumothorax. HEART, MEDIASTINUM AND RANDOLPH: Heart is normal in size. Normal mediastinal and hilar contour. BONES AND SOFT TISSUES: No acute abnormality. IMPRESSION: Findings suggestive of multifocal left lung pneumonia. A critical result message ([place]) has been communicated via the [facility] system on 10/13/2022 11:11 PM, Message ID [id number]. WSN: [id number] Ordering Physician: Gucci Alejandra Dictated By: Levi Fonseca MD Dictated Date/Time: 10/13/22 11:11 p Reviewed By: Levi Fonseca MD Signed By: Levi Fonseca MD Signed Date/Time: 10/13/22 11:11 pm Transcribed By: MERLY Transcribed Date/Time: 10/13/22 11:10 pm CTA Chest vessels W contrast IV * MADAN Naik S: TRANSCRIBE Olu Kathleen DO: SIGN Leonardo Taveras MD: VERIFY Event Display: Result: Authored Date: [id number] EXAMINATION: CT Angio Chest INDICATION: Reason: PE suspected, Intermediate prob, positive D-dimer,; Clinical Question(s): Pulmonary Embolism TECHNIQUE: Spiral CTA of the chest was performed after rapid IV contrast administration without cardiac gating, triggered by an SHAHRAM on the main pulmonary artery. Images are formatted in multiple planes using 2-D multiplanar and 3-D maximum intensity projection. 100 cc of Omnipaque 300 was administered intravenously. Weight-based protocol using automatic tube modulation was used to optimize exposure parameters. CTDIvol Body: 11.82 mGy, DLP Body: 341 mGy*cm. COMPARISONS: CT 01/03/2021. Radiographs dated 10/09/2022 and 10/13/2022. ANGIOGRAPHIC FINDINGS: Evaluation is severely limited by motion artifact an poor opacification of the pulmonary arterial system. No pulmonary embolism to the central and lobar arteries. Normal caliber pulmonary arteries. No acute aortic abnormality seen on this study performed without cardiac gating. NON-ANGIOGRAPHIC FINDINGS: Glass Breaker View Findings, Lines and Tubes: None. Trachea and Airways: Patent without evidence of tracheal or endobronchial lesion. Lungs and Pleura: Moderate respiratory motion. Multifocal areas of consolidation with surrounding groundglass opacity throughout the left upper and lower lobes with minimal opacity in the right lung base and superior segment of the right lower lobe (505:26). Largest area of confluent consolidation in the left apex (505:18). Some of the areas of consolidation are somewhat nodular in configuration,for example in the left lower lobe (505:56). No effusion or pneumothorax. Mediastinum and randolph: No mass or hematoma. Bilateral hilar adenopathy measuring up to 1.1 cm in theshort axis (for example 501:32).. Subcarinal node measuring 1.3 cm in the short axis (501:42. Additional smaller mediastinal lymph nodes seen. Type 3 paraesophageal hernia. No thyroid nodule large enough to warrant follow up. Heart: Heart is normal in size. No pericardial effusion. Moderate coronary artery calcification. Chest Wall Soft Tissues: Some curvilinear calcifications in the left breast likely sequela of priorsurgery or trauma. Diaphragm and upper abdomen: No significant abnormality. 8 mm hypodensity in segment 4 (501:73), unchanged from 202, likely a cyst. Bones: Limited by motion artifact. Likely old right-sided rib fractures. Spine degenerative changes. No acute abnormality IMPRESSION: Significantly limited due to respiratory motion and contrast timing. No large central or lobar pulmonary embolism. Multifocal areas of consolidation throughout the left lung and a small amount of consolidation in the right lung base most suggestive of pneumonia. A follow-up chest CT in 6-8 weeks on appropriate treatment is recommended to assess for resolution/improvement, given that some of these areas of consolidation are vaguely nodular in appearance. Mild mediastinal lymphadenopathy is favored be reactive. Attention on follow-up is recommended. Large type III paraesophageal hernia. A critical result message (Yellow) has been communicated via the [facility] system on 10/14/2022 9:09 AM, Message ID [id number]. I have personally reviewed the images and I agree with this report. WSN: [id number] Ordering Physician: Gucci Alejandra Dictated By: Olu Kathleen DO Dictated Date/Time: 10/14/22 9:09 am Reviewed By: Leonardo Taveras MD Signed By: Leonardo Taveras MD Signed Date/Time: 10/14/22 9:14 am Transcribed By: MERLY Transcribed Date/Time: 10/14/22 5:52 am Patient Care team information Care Team Personnel Name: Mary SHAY, Bridgette Archibald Position: [facility] Primary Care Physician Member Role: PCP Address: Address: [address] [place] [address] Name: *Tarik HIDALGO Attending Position: [facility] ED Medicine Name: Justo Zambrano RN Position: [facility] ED RN W/OE and Tasks Member Role: Patient Care Provider Name: Josefina Osman Position: [facility] ED TA [facility] Member Role: Food Operations Manager Care Team Related Persons Name: DOREEN PENDLETON Address: [address] [place] [address] Name: MACARENA DOWLING Address: [address] [place] [address]
--- OUTSIDE RECORDS SUMMARY | 2023-02-05 11:17 | XMS_ITS | Continuity of Care Document ---
Author Name Unknown Organization [facility] Address [address] [facility] [place] [address]- Care Team Providers Care Emergency Generator Mechanic Name Role Phone Mary SHAY, Bridgette Archibald Primary Care Physic payal Encounter [facility] Date(s): 11/19/22 - 12/19/22 [facility] [address] [place] [address]- Allergies, Adverse Reactions, Alerts Substance Reaction Severity Status Augmentin nausea Active Immunizations Given and Recorded Vaccine Date Status Refusal Reason [id number] 12y+ bivalent booster vax 1 04/09/22 Given [...] Toxoid Vaccine (oldterm) 06/21/01 Given 1Result Comment: [facility] [place] 2]: [id number] 2Result Comment: [facility] [place] 2]: 73225-578-28 3Result Comment: [facility] [place]NOTE 2]: 72246-316-52 4Result Comment: [facility] [place]NOTE 2]: 64518-105-49 5Result Comment: [facility] [place] 2] 92029-424-98 6Result Comment: [05/02/2018] [facility] [place] 2] # [id number] 7Result Comment: [05/31/2017] [facility] [place] 2[place] 05348-757-06 8Result Comment: [03/16/2014] Dr. Duffy 9Result Comment: [facility] [place]NOTE 2]: 38611-407-61 10Result Comment: [07/01/2015] diluent [id number] 08/24/17 Merck 11Admin Note: rcvd elsewhere Medications [...] Gm, 1 Refills, Maintenance, 10/16/22 10:07:00 EDT, [facility]/pharmacy #[id number], Partial fill upon patient request [...] Mouth, Once, Administered after procedure - LOT [id number] EXP 01/2024, # 1 tablet, 0 Refills, [...] 0 Refills, Maintenance, 12/15/22 9:34:00 EDT, Tablet, [facility]/pharmacy #[id number], Partial fill upon patient request [...] 11/17/22 8:17:00 EDT, Route to Pharmacy Electronically, [facility] STORE 69034, 165, cm, 10/26/22 16:15:00 EDT, Height, 58.7, kg, 10/21/22 21:15:00 EDT, Dry Weight Start Date: 11/17/22 Stop Date: 12/17/22 Status: Ordered losartan 25 mg oral tablet 1 tablet = 25 mg, By Mouth, Daily, # 30 tablet, 0 Refills, Maintenance, 12/15/22 9:35:00 EDT, Tablet, [facility]/pharmacy #[id number], Partial fill upon patient request [...] infiltrating ductal carcinoma, 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, ER positive, [place] negative, 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 Social History Social History Type Response Smoking Status Former smoker; Tobac co user in household: No; Other: Quit 30 years ago; Started at 16 YO 1/2 pack daily; entered on: 05/31/17 Sex Patient Care team information Care Team Personnel Name: Maryellen HATFIELD, Luis Position: [facility] RN Member Role: Primary Care Nurse Name: Mary SHAY, Bridgette Archibald Position: S Physician - Primary Care Member Role: PCP Address: Address: [address] [place] [id number] Name: Paris De Jesus LPN Position: S RN Member Role: Primary Care Nurse Name: Keya Rollins RN Position: S RN Member Role: Primary Care Nurse Name: Lisa Leone RN Position: S RN Member Role: Primary Care Nurse Care Team Related Persons Name: KEERTHIAMY MARTIN Address: [address] [place] [address] Name: ILDA DOWLING Address: [address] [place] [address]
--- OUTSIDE RECORDS SUMMARY | 2023-02-05 11:17 | XMS_ITS | Continuity of Care Document ---
Author Name Unknown Organization [facility] Address [address] [place] [address]- Care Team Providers Care Drilling Superintendent Name Role Phone Mary SHAY, Bridgette Archibald Primary Care Physic payal Encounter [facility] Date(s): 07/31/21 - 08/30/21 [facility] [address] [place] [address]- [place] Allergies, Adverse Reactions, Alerts Substance Reaction Severity [...] (oldterm) 11/05/06 Given Tetanus Toxoid Vaccine (oldterm) 1/1/02 Given 1Result Comment: [facility]: [id number] 2Result Comment: [facility]: 22300-917-98 3Result Comment: [facility]: [phone] 4Result Comment: [facility] 57259-551-06 5Result Comment: [05/02/2018] [facility] # [id number] 6Result Comment: [05/31/2017] [facility] [phone] 7Result Comment: [03/16/2014] Dr. Duffy 8Result Comment: [07/01/2015] diluent [id number] 08/24/17 [employer]ck 9Admin Note: rcvd elsewhere Medications albuterol 0.083% inhalation solution 3 mL = 2.5 mg, Inhalation, Every 6 hours, DX: J45.909, # 60 each, 0 Refills, Maintenance, 08/25/19 10:27:00 EST, Solution, [id number], 160.5, cm, 07/19/19 13:59:00 EST, Height, 55.6, kg, 03/15/19 15:53:00 EDT, Dry Weight Start Date: 08/25/19 Status: Ordered Azithromycin 5 Day Dose Pack 250 mg oral tablet 1 pack/packet, By Mouth, Once, # 6 tablet, 0 Refills, Soft Stop, 04/10/21 16:39:00 EDT, Tablet, [id number], Partial fill upon patient request [...] 1 Refills, Maintenance, 04/22/21 15:35:00 EDT, Tablet, [id number], Partial fill upon patient request if the prescription is for a schedule II opioid drug., 160, cm, 01/20/21 14:22:00 EDT, Height,... Start Date: 04/22/21 Status: Ordered citalopram 20 mg oral tablet 20 mg, 1, tablet, By Mouth, Daily, # 90 tablet, Refills 1, Tot. Refills 1, Maintenance, 03/26/21 14:13:00 EDT, Route to Pharmacy Electronically, [facility]/pharmacy #[id number], 160, cm, 01/20/21 14:22:00 EDT, Height, [...] 07/31/21 9:32:00 EST, Route to Pharmacy Electronically, [facility]/pharmacy #[id number], Partial fill upon patient request if the prescription is for a schedule II o... Start Date: 07/31/21 Status: Ordered loratadine 10 mg oral tablet 10 mg, 1, tablet, By Mouth, Daily, # 90 tablet, Refills 0, Tot. Refills 0, Maintenance, 11/28/20 9:28:00 EDT, Route to Pharmacy Electronically, [facility]/pharmacy #[id number], 160.5, cm, 11/26/20 11:39:00 EDT, Height, 55.6, kg, 03/15/19 15:53:00 EDT, Dry Weight Start Date: 11/28/20 Status: Ordered losartan 25 mg oral tablet 25 mg, 1, tablet, By Mouth, Daily, # 90 tablet, Refills 1, Tot. Refills 1, Maintenance, 03/26/21 13:41:00 EDT, [id number], 160, cm, 01/20/21 14:22:00 EDT, [...] Daily in PM, # 30 tablet, Refills 0, Route to Pharmacy Electronically, [facility] STORE 19197, 160, cm, 07/01/21 11:43:00 EST, Height, 63, kg, 12/12/20 13:26:00 EDT, Dry Weight Start Date: 08/11/21 Status: Ordered Multivitamin Daily, 0 Refills, Maintenance, 12/11/20 15:05:00 EDT, Partial fill upon patient request if the prescription is for a schedule II opioid drug. Start Date: 12/11/20 Status: Ordered Protonix 40 mg oral delayed release tablet 1 tablet = 40 mg, By Mouth, Daily, # 90 tablet, 1 Refills, Maintenance, 07/08/21 14:30:00 EST, EC Tablet, 160, cm, 07/01/21 11:43:00 EST, Height, 63, kg, 12/12/20 13:26:00 EDT, Dry Weight Start Date: 07/08/21 Status: Ordered Spiriva HandiHaler 18 mcg inhalation capsule 1 capsule = 18 mcg, Inhalation, Daily, # 90 capsule, 0 Refills, Maintenance, 08/07/21 13:35:00 EST,[id number], 160, cm, 07/01/21 11:43:00 EST, Height, 63, kg, 12/12/20 13:26:00 EDT, Dry Weight Start Date: 08/07/21 Status: Ordered Vitamin D3 = 1,000 International_Units, [...]
--- OUTSIDE RECORDS SUMMARY | 2023-02-05 11:17 | XMS_ITS | Continuity of Care Document ---
Author Name Unknown Organization [facility] Address [address] [place] [address]- Care Team Providers Care Business Enterprise Officer Name Role Phone Mary SHAY, Bridgette Archibald Primary Care Physic payal Encounter [facility] Date(s): 09/07/22 - 10/07/22 [facility] [address] [place] [address]- Allergies, Adverse Reactions, Alerts Substance Reaction Severity Status Augmentin nausea Active Immunizations Given and Recorded Vaccine Date Status Refusal Reason [id number] 12y+ bivalent booster vax 1 04/09/22 Given [...] Vaccine (oldterm) 06/21/01 Given 1Result Comment: [facility]: [id number] 2Result Comment: [facility]: 14486-142-50 3Result Comment: [facility]: 53888-891-50 4Result Comment: [facility]: 97114-211-04 5Result Comment: [facility] 90430-395-00 6Result Comment: [05/02/2018] [facility] # 26156-858-26 7Result Comment: [05/31/2017] [facility] [id number] 8Result Comment: [03/16/2014] Dr. Duffy 9Result Comment: [facility]: 88339-090-98 10Result Comment: [07/01/2015] diluent [id number] 08/24/17 [employer]ck 11Admin Note: rcvd elsewhere Medications Advair Diskus 500 mcg-50 mcg inhalation powder 1, inhalation, Inhalation, 2 times a day, rinse mouth and throat after use j45.40, # 1 each, Refills 6, Tot. Refills 6, Maintenance, 01/19/22 12:24:00 EDT, Powder, Route to Pharmacy Electronically, [id number], [facility]/pharmacy #7... Start Date: 01/19/22 Status: Ordered albuterol 0.083% inhalation solution 3 mL = 2.5 mg, Inhalation, Every 6 hours, DX: J45.909, # 60 each, 0 Refills, Maintenance, 08/25/19 10:27:00 EST, Solution, [facility]/pharmacy #[id number], 160.5, cm, 07/19/19 13:59:00 EST, Height, 55.6, kg, 03/15/19 15:53:00 EDT, Dry Weight Start Date: 08/25/19 Status: Ordered cetirizine 10 mg oral tablet 1 tablet = 10 mg, By Mouth, Daily, # 30 tablet, 1 Refills, Maintenance, 04/22/21 15:35:00 EDT, Tablet, [id number] Partial fill upon patient request if the prescription is for a schedule II opioid drug., 160, cm, 01/20/21 14:22:00 EDT, Height,... Start Date: 04/22/21 Status: Ordered citalopram 20 mg oral tablet 20 mg, 1, tablet, By Mouth, Daily, # 90 tablet, Refills 1, Tot. Refills 1, Maintenance, 04/30/22 17:34:00 EST, Route to Pharmacy Electronically, [facility]/pharmacy #[id number], 166, cm, 02/13/22 15:01:00 EDT, [...] capsule, 0 Refills, Maintenance, 11/19/21 16:31:00 EDT, [facility]/pharmacy #[id number], Partial fill upon patient request [...] 07/31/21 9:32:00 EST, [id number], Partial fill upon patient request if the prescription is for a schedule II o... Start Date: 07/31/21 Status: Ordered Flonase 50 mcg/inh nasal spray 2 sprays, Nares, Both, Daily in AM, # 16 Gm, 6 Refills, Maintenance, 05/16/21 10:11:00 EST, [place], [facility]/pharmacy #[id number], Partial fill upon patient request if the prescription is for a schedule II opioid drug., 2 sprays Nares, Both Daily in AM, 160, cm,... Start Date: 05/16/21 Status: Ordered gabapentin 100 mg oral capsule 1, capsule, By Mouth, 3 times a day, # 90 capsule, Refills 0, Maintenance, 09/10/22 9:14:00 EDT, Route to Pharmacy Electronically, [facility] [id number], 166, cm, 08/31/22 11:19:00 EDT, Height, 63, kg, 12/12/20 13:26:00 EDT, Dry Weight Start Date: 09/10/22 Stop Date: 10/10/22 Status: Ordered loratadine 10 mg oral tablet 10 mg, 1, tablet, By Mouth, Daily, # 90 tablet, Refills 0, Tot. Refills 0, Maintenance, 11/27/21 9:50:00 EDT, [facility], [id number], 160, cm, 08/19/21 15:40:00 EST, Height, 63, kg, 12/12/20 13:26:00 EDT, Dry Weight Start Date: 11/27/21 Status: Ordered losartan 25 mg oral tablet 25 mg, 1, tablet, By Mouth, Daily, # 90 tablet, Refills 1, Tot. Refills 1, Maintenance, 04/10/22 9:35:00 EDT, [facility] to Pharm[facility] Electronically, [id number], Appointment, 166, cm, 02/13/22 15:01:00 EDT, [...] tablet, Refills 11, Route to Pharmacy Electronically, [facility] STORE [id number], 160, cm, 08/19/21 15:40:00 EST, Height, 63, [...] capsule, 1 Refills, Maintenance, 05/25/22 9:54:00 EST, [facility]/pharmacy #7111, 166, cm, 02/13/22 15:01:00 EDT, [...] N0, ER positive, [place] negative, 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 Social History Social History Type Response Smoking Status Former smoker; Tobac co user in household: No; Other: Quit 30 years ago; Started at 16 YO 1/2 pack daily; entered on: 05/31/17 Sex Patient Care team information Care Team Personnel Name: Mary SHAY, Bridgette Archibald Position: [facility] Primary Care Physician Member Role: PCP Address: Address: [address] [place] [id number] Care Team Related Persons Name: AMY PENDLETON Address: [address] [place] [address] Name: ILDA DOWLING Address: [address] [place] [address]
--- OUTSIDE RECORDS SUMMARY | 2023-02-05 11:17 | XMS_ITS | Continuity of Care Document ---
Author Name Unknown Organization [facility] Address [address] [place] [address]- Care Team Providers Care Strategy Associate Name Role Phone Mary SHAY, Bridgette Archibald Primary Care Physic payal Encounter [facility] Date(s): 01/31/21 - 03/02/21 [facility] [address] [place] [address]- Allergies, Adverse Reactions, Alerts Substance Reaction Severity [...] Toxoid Vaccine (oldterm) 06/21/01 Given 1Result Comment: [facility]: [id number] 2Result Comment: [facility] 03423-639-68 3Result Comment: [05/02/2018] [facility] # 10851-518-67 4Result Comment: [05/31/2017] [facility] 25769-399-15 5Result Comment: [03/16/2014] Dr. Duffy 6Result Comment: [07/01/2015] diluent [id number] 08/24/17 Merck 7Admin Note: rcvd elsewhere Medications Advair Diskus 250 mcg-50 mcg inhalation powder 1, puffs, Inhalation, 2 times a day, # 180 each, Refills 1, Tot. Refills 1, Maintenance, 10/03/20 12:43:00 EDT, Route to Pharmacy Electronically, [id number], [facility]/pharmacy #[id number], 160.5, cm, 04/19/20 11:16:00 EDT, Height, 55.6,... Start Date: 10/03/20 Stop Date: 04/01/21 Status: Ordered albuterol 0.083% inhalation solution 3 mL = 2.5 mg, Inhalation, Every 6 hours, DX: J45.909, # 60 each, 0 Refills, Maintenance, 08/25/19 10:27:00 EST, Solution, [facility]/pharmacy #[id number], 160.5, cm, 07/19/19 13:59:00 EST, Height, 55.6, kg, 03/15/19 15:53:00 EDT, Dry Weight Start Date: 08/25/19 Status: Ordered Bactrim DS 800 mg-160 mg oral tablet 1 tablet, By Mouth, Once, [facility], # 1 tablet, 0 Refills, Soft Stop, 12/24/20 12:01:00 EDT, Partial fill upon patient request if the prescription is for a schedule II opioid drug. Start Date: 12/24/20 Status: Ordered cetirizine 10 mg oral tablet 1 tablet = 10 mg, By Mouth, Daily, # 30 tablet, 0 Refills, Maintenance, 12/27/20 14:45:00 EDT, Tablet, [facility]/pharmacy #[id number], Partial fill upon patient request if the prescription is for a schedule II opioid drug., 160, cm, 12/27/20 13:23:00 EDT, Height,... Start Date: 12/27/20 Status: Ordered citalopram 20 mg oral tablet 20 mg, 1, tablet, By Mouth, Daily, # 90 tablet, Refills 1, Tot. Refills 1, Maintenance, 09/30/20 11:37:00 EDT, Route to Pharmacy Electronically, [facility]/pharmacy #[id number], 160.5, cm, 04/19/20 11:16:00 [...] 12/11/20 15:53:00 EDT, Route to Pharmacy Electronically, [facility]/pharmacy #[id number], Partial fill upon patient request if the prescription is for a schedule II... Start Date: 12/11/20 Status: Ordered Flonase 50 mcg/inh nasal spray 1 sprays, Nares, Both, 2 times a day, # 1 each, 6 Refills, Maintenance, 01/20/21 14:20:00 EDT, [place], [facility]/pharmacy #[id number], Partial fill upon patient request if the prescription is for a schedule II opioid drug., 1 sprays Nares, Both 2 times a day, 160,... Start Date: 01/20/21 Status: Ordered loratadine 10 mg oral tablet 10 mg, 1, tablet, By Mouth, Daily, # 90 tablet, Refills 0, Tot. Refills 0, Maintenance, 11/28/20 9:28:00 EDT, [id number], 160.5, cm, 11/26/20 11:39:00 EDT, Height, 55.6, kg, 03/15/19 15:53:00 EDT, Dry Weight Start Date: 11/28/20 Status: Ordered losartan 25 mg oral tablet 25 mg, 1, tablet, By Mouth, Daily, # 90 tablet, Refills 0, Tot. Refills 0, Maintenance, 11/29/20 14:27:00 EDT, [facility]ically, [id number], Appointment, 160.5, cm, 11/26/20 11:39:00 EDT, [...] Daily, # 90 tablet, 0 Refills, Maintenance, 01/06/21 9:28:00 EDT, EC Tablet, 160, cm, 12/27/20 13:23:00 EDT, Height, 63, kg, 12/12/20 13:26:00 EDT, Dry Weight Start Date: 01/06/21 Status: Ordered Spiriva HandiHaler 18 mcg inhalation capsule 1 capsule = 18 mcg, Inhalation, Daily, # 90 capsule, 0 Refills, Maintenance, 11/29/20 14:28:00 EDT,[id number], 160.5, cm, 11/26/20 11:39:00 EDT, Height, [...] infiltrating ductal carcinoma, T2 N0, ER positive, [place]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 2013(Confirmed) 10/02/13 Active Osteoporosis(Confirmed) Active Hx of breast cancer(Confirmed) 2 10/2013 Active Wrist injury(Confirmed) Active 1Dermatologist is [place] [facility] 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, T2 N0, ER positive, [place] negative, 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 Social History Social History Type Response Smoking Status Former smoker; Tobac co user in household: No; Other: Quit 30 years ago; Started at 16 YO 1/2 pack daily; entered on: 05/31/17 Sex
--- OUTSIDE RECORDS SUMMARY | 2023-02-05 11:17 | XMS_ITS | Continuity of Care Document ---
Author Name Unknown Organization [facility] Address [address] [place] [address]- Care Team Providers Care Copyist Name Role Phone Mary SHAY, Bridgette Archibald Primary Care Physic payal Encounter [facility] Date(s): 01/30/22 - 03/01/22 [facility] [address] [place] [id number] Attending Physician: Rubens Pinto Admitting Physician: AdmRubens [...] Toxoid Vaccine (oldterm) 06/21/01 Given 1Result Comment: [facility]: [id number] 2Result Comment: [facility]: [id number] 3Result Comment: [facility]: 55620-516-98 4Result Comment: [facility] 48600-231-86 5Result Comment: [05/02/2018] [facility] # [id number] 6Result Comment: [05/31/2017] [facility] [id number] 7Result Comment: [03/16/2014] Dr. Duffy 8Result Comment: [07/01/2015] diluent [id number] 08/24/17 [employer]ck 9Admin Note: rcvd elsewhere Medications Advair Diskus 500 mcg-50 mcg inhalation powder 1, inhalation, Inhalation, 2 times a day, rinse mouth and throat after use j45.40, # 1 each, Refills 6, Tot. Refills 6, Maintenance, 01/19/22 12:24:00 EDT, Powder, Route to Pharmacy Electronically, [id number], [facility]/pharmacy #7... Start Date: 01/19/22 Status: Ordered albuterol 0.083% inhalation solution 3 mL = 2.5 mg, Inhalation, Every 6 hours, DX: J45.909, # 60 each, 0 Refills, Maintenance, 08/25/19 10:27:00 EST, Solution, [facility]/pharmacy #7111, 160.5, cm, 07/19/19 13:59:00 EST, Height, [...] 1 Refills, Maintenance, 04/22/21 15:35:00 EDT, Tablet, [facility]/pharmacy #[id number], Partial fill upon patient request if the prescription is for a schedule II opioid drug., 160, cm, 01/20/21 14:22:00 EDT, Height,... Start Date: 04/22/21 Status: Ordered citalopram 20 mg oral tablet 20 mg, 1, tablet, By Mouth, Daily, # 90 tablet, Refills 1, Tot. Refills 1, Maintenance, 10/13/21 12:28:00 EDT, [id number], cm, 08/19/21 15:40:00 [...] capsule, 0 Refills, Maintenance, 11/19/21 16:31:00 EDT, [facility]/pharmacy #[id number], Partial fill upon patient request if [...] 07/31/21 9:32:00 EST, Route to Pharmacy Electronically, [facility]/pharmacy #7111, Partial fill upon patient request if the prescription is for a schedule II o... Start Date: 07/31/21 Status: Ordered Flonase 50 mcg/inh nasal spray 2 sprays, Nares, Both, Daily in AM, # 16 Gm, 6 Refills, Maintenance, 05/16/21 10:11:00 EST, [place], [facility]/pharmacy #7111, Partial fill upon patient request if the prescription is for a schedule II opioid drug., 2 sprays Nares, Both Daily in AM, 160, cm,... Start Date: 05/16/21 Status: Ordered loratadine 10 mg oral tablet 10 mg, 1, tablet, By Mouth, Daily, # 90 tablet, Refills 0, Tot. Refills 0, Maintenance, 11/27/21 9:50:00 EDT, Route to Pharmacy Electronically, [facility]/pharmacy #[id number], 160, cm, 08/19/21 15:40:00 EST, Height, 63, kg, 12/12/20 13:26:00 EDT, Dry Weight Start Date: 11/27/21 Status: Ordered losartan 25 mg oral tablet 25 mg, 1, tablet, By Mouth, Daily, # 90 tablet, Refills 0, Tot. Refills 0, Maintenance, 01/26/22 17:51:00 EDT, Route to Pharmacy Electronically, [facility]/pharmacy #7111, Appointment, 166, cm, 12/18/21 13:30:00 EDT, [...] tablet, Refills 11, Route to Pharmacy Electronically, [facility] STORE [address], 160, cm, 08/19/21 15:40:00 EST, Height, 63, [...] 90 capsule, 1 Refills, Maintenance, 10/23/21 14:10:00 EDT,[facility]/pharmacy #[id number], 160, cm, 08/19/21 15:40:00 EST, Height, [...] infiltrating ductal carcinoma, T2 N0, ER positive, [place]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 2013(Confirmed) 10/02/13 Active Localized osteoarthritis of knee(Confirmed) Active Osteoporosis(Confirmed) Active Hx of breast cancer(Confirmed) 2 10/2013 Active Wrist injury(Confirmed) Active 1Dermatologist is [facility] 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, T2 N0, ER positive, [place] negative, 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 Social History Social History Type Response Smoking Status Former smoker; Tobac co user in household: No; Other: Quit 30 years ago; Started at 16 YO 1/2 pack daily; entered on: 05/31/17 Sex Care Team Personnel Name: Mary SHAY, Bridgette Archibald Address: [address] [place], [place] [address]
--- OUTSIDE RECORDS SUMMARY | 2023-02-05 11:17 | XMS_ITS | Continuity of Care Document ---
Author Name Unknown Organization [place] Address [address] [place] [address]- Care Team Providers Care Visualizer Name Role Phone Mary SHAY, Bridgette Archibald Primary Care Physic payal [place] [facility] [place] - 07/02/[address] [address]- [facility] Attending Physician: Rubens Pinto Admitting Physician: AdmtrRubens Referring Physician: Admtr, Ar8 Allergies, Adverse Reactions, [...] Vaccine (oldterm) 06/21/01 Given 1Result Comment: [facility] [id number] 2Result Comment: [05/02/2018] [facility] # [id number] 3Result Comment: [05/31/2017] [facility] [id number] 4Result Comment: [03/16/2014] Dr. Duffy 5Result Comment: [07/01/2015] diluent [id number] 08/24/17 Merck 6Admin Note: rcvd elsewhere Medications Advair Diskus 250 mcg-50 mcg inhalation powder 1, puffs, Inhalation, 2 times a day, # 180 each, Refills 3, Tot. Refills 3, Maintenance, 05/26/18 10:07:57 EST, Route to Pharmacy Electronically, [id number], [facility] Start Date: 05/26/18 Stop Date: 05/21/19 Status: Ordered amiodarone 200 mg oral tablet 200 mg, 1, tablet, By Mouth, Daily, Prescribed by Dr. Car (Cardiology), # 90 tablet, Refills 0,Tot. Refills 0, Maintenance, 03/24/19 17:32:08 EDT, Route to Pharmacy Electronically, [id number][facility] Start Date: 03/24/19 Stop Date: 06/24/20 Status: Ordered anastrozole 1 mg oral tablet 1 tablet = 1 mg, By Mouth, Daily, # 90 tablet, 1 Refills, Maintenance, 05/20/18 13:20:36 EST, Tablet Start Date: 05/20/18 Status: Ordered barium sulfate 2% oral suspension See Instructions, dispense two 450 mg bottles. Drink one 450 ml bottle at 8am, and one 450 mL bottle 90 minutes prior to procedure., # 900 mL, 0 Refills, Maintenance, 06/05/19 15:49:07 EST, [facility]/pharmacy #[id number], dispense two 450 mg bottles. ; Drink on... Start Date: 06/05/19 Status: Ordered citalopram 20 mg oral tablet 20 mg, 1, tablet, By Mouth, Daily, # 90 tablet, Refills 1, Tot. Refills 1, Maintenance, 03/08/19 9:37:54 EDT, Route to Pharmacy Electronically, [id number], [facility] Start Date: 03/08/19 Status: Ordered diclofenac 1% [...] 07/13/18 16:42:32 EST, Route to Pharmacy Electronically, [id number], [facility] Start Date: 07/13/18 Stop Date: 07/08/19 Status: [...] infiltrating ductal carcinoma, T2 N0, ER positive, SD negative, 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 Social History Social History Type Response Smoking Status Former smoker; Tobac co user in household: No; Other: Quit 30 years ago; Started at 16 YO 1/2 pack daily; entered on: 05/31/17 Sex
--- OUTSIDE RECORDS SUMMARY | 2023-02-05 11:18 | XMS_ITS | Continuity of Care Document ---
Author Name Unknown Organization [facility] Address [address] [place] [address]- Care Team Providers Care Body Shop Floorperson Name Role Phone Mary SHAY, Bridgette Archibald Primary Care Physic payal Encounter [facility] Date(s): 05/29/22 - 06/05/22 [facility] [address] [place] [address]- [place] Encounter Diagnosis Left-sided chest wall pain(Discharge Diagnosis) - 05/29/22 Breast pain, left(Discharge Diagnosis) - 05/29/22 Attending Physician: Bridgette Hernandez MD Allergies, Adverse Reactions, Alerts Substance Reaction Severity Status Augmentin nausea Active Immunizations Given and Recorded Vaccine Date Status Refusal Reason [id number] 12y+ bivalent booster vax 1 04/09/22 Given [...] Comment: [facility] [place] [id number] 2Result Comment[facility] [place]: [id number] 3Result Comment: [facility] [place] [id number] 4Result Comment: [facility] [place]: [id number] 5Result Comment: [facility] [place] [id number] 6Result Comment: [05/02/2018] [facility] [place] # [id number] 7Result Comment: [05/31/2017] [facility] [place] [id number] 8Result Comment: [03/16/2014] Dr. Duffy 9Result Comment: [facility] [place]: [id number] 10Result Comment: [07/01/2015] diluent [id number] 08/24/17 Merck 11Admin Note: rcvd elsewhere Medications Advair Diskus 500 mcg-50 mcg inhalation powder 1, inhalation, Inhalation, 2 times a day, rinse mouth and throat after use j45.40, # 1 each, Refills 6, Tot. Refills 6, Maintenance, 01/19/22 12:24:00 EDT, Powder, Route to Pharmacy Electronically, [id number], [facility]/pharmacy #7... Start Date: 01/19/22 Status: Ordered albuterol 0.083% inhalation solution 3 mL = 2.5 mg, Inhalation, Every 6 hours, DX: J45.909, # 60 each, 0 Refills, Maintenance, 08/25/19 10:27:00 EST, Solution, [facility]/pharmacy #[id number], 160.5, cm, 07/19/19 13:59:00 EST, [...] Refills, Maintenance, 04/22/21 15:35:00 EDT, Tablet, [facility]/pharmacy #[id number], Partial fill upon patient request if the prescription is for a schedule II opioid drug., 160, cm, 01/20/21 14:22:00 EDT, Height,... Start Date: 04/22/21 Status: Ordered citalopram 20 mg oral tablet 20 mg, 1, tablet, By Mouth, Daily, # 90 tablet, Refills 1, Tot. Refills 1, Maintenance, 04/30/22 17:34:00 EST, Route to Pharmacy Electronically, [facility]/pharmacy #[id number], 166, cm, 02/13/22 15:01:00 EDT, [...] 0 Refills, Maintenance, 11/19/21 16:31:00 EDT, [facility]/pharmacy #[id number], Partial fill [...] 9:32:00 EST, Route to Pharmacy Electronically, [facility]/pharmacy #[id number], Partial fill upon patient request if the prescription is for a schedule II o... Start Date: 07/31/21 Status: Ordered Flonase 50 mcg/inh nasal spray 2 sprays, Nares, Both, Daily in AM, # 16 Gm, 6 Refills, Maintenance, 05/16/21 10:11:00 EST, [place], [facility]/pharmacy #[id number], Partial fill upon patient request if the prescription is for a schedule II opioid drug., 2 sprays Nares, Both Daily in AM, 160, cm,... Start Date: 05/16/21 Status: Ordered loratadine 10 mg oral tablet 10 mg, 1, tablet, By Mouth, Daily, # 90 tablet, Refills 0, Tot. Refills 0, Maintenance, 11/27/21 9:50:00 EDT, Route to Pharmacy Electronically, [facility]/pharmacy #[id number], 160, cm, 08/19/21 15:40:00 EST, Height, 63, kg, 12/12/20 13:26:00 EDT, Dry Weight Start Date: 11/27/21 Status: Ordered losartan 25 mg oral tablet 25 mg, 1, tablet, By Mouth, Daily, # 90 tablet, Refills 1, Tot. Refills 1, Maintenance, 04/10/22 9:35:00 EDT, Route to Pharmacy Electronically, [facility]/pharmacy #[id number], Appointment, 166, cm, 02/13/22 15:01:00 [...] Refills 11, Route to Pharmacy Electronically, [id number], 160, cm, 08/19/21 15:40:00 EST, Height, 63, [...] 1 Refills, Maintenance, 05/25/22 9:54:00 EST, [facility]/pharmacy #[id number], 166, cm, 02/13/22 15:01:00 EDT, [...] N0, ER positive, [place]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 2013 Confirmed 10/02/13 Active [...] Dates Health Status Cl inical Service Informant Left-sided chest wall pain Discharge Diagnosis 05/29/22 Breast pain, left Discharge Diagnosis 05/29/22 Vital Signs Most recent to oldest [Reference Range]: 1 Height 166 cm (05/29/22 11:40 AM) Oxygen Saturation [94-100 %] 98 % (05/29/22 11:40 AM) Pulse Rate [55-90 bpm] 68 bpm (05/29/22 11:40 AM) Blood Pressure [90-138/55-84 mm Hg] 122/ 72mm Hg (05/29/22 11:40 AM) Blood pressure sites Arm, right (05/29/22 11:40 AM) Social History Social History Type Response Smoking Status Former smoker; Tobac co user in household: No; Other: Quit 30 years ago; Started at 16 YO 1/2 pack daily; entered on: 05/31/17 Sex EKG study * Event Display: ECG 12-Lead Authored Date: Please click on pdf link to open report * Event Display: ECG 12-Lead Authored Date: Ventricular Rate: 65 BPM Atrial Rate: 65 BPM P-R Interval: 180 ms QRS Duration: 78 ms Q-T Interval: 418 ms QTC Calculation(Bazett): 434 ms P [place]: 88 degrees R [place]: 16 degrees T [place]: 29 degrees Normal sinus rhythm Normal ECG When compared with ECG of 30-OCT-2015 13:13, MT interval has decreased Confirmed by ALBA CUNNINGHAM MD ([id number]) on 05/29/2022 5:12:15 PM [place]: ALBA CUNNINGHAM MD Note * Ana Cristina Maharaj: VERIFY, PERFORM, SIGN Event Display: Patient Education/Instruction Authored Date: [id number] [facility] *[facility] Clinical Summary Name HATTIE ECHEVARRIA Age 82 Years 1940 PCP Mary SHAY, Bridgette Archibald PCP Visit Date 05/29/2022 11:27:00 Additional Instructions: Scheduled Appointments?? Future Appointments ?*Byst??Fam??Med??[facility] ?Phone:??--?Fax:??-- ?Appt. Date:??06/24/2022?3:00 PM ?Scheduled Provider:??[facility] Clinical Schedule B ?[facility] ?[address]??[place],??[place],??[address] ?Phone:??[phone]?Fax:??-- ?Appt. Date:??12/24/2022?1:00 PM ?Scheduled Provider:??[facility] 3D Mammo Rm 4 Follow-Up Instructions ?? Diagnosis Chest pain, unspecified; Other chest pain; Mastodynia Medications: Please continue your medications until treatment [...] Augmentin Medications Given This Visit Future Orders ?Ribs 2 Views Left? Order Date:05/29/22?- Complete on or after?05/29/22 Vital Signs Height 166 cm Weight BMI Blood Pressure 122 mm Hg/72 mm Hg Temperature Pulse Rate 68 bpm Respiratory Rate 02 Sat Mode of Delivery 98 %/ You can now view a summary of your hospital visit from the comfort of your home through a free online portal called Redfin. Redfin is a website that allows you to securely view your medical information including discharge summary, medications and follow-up visits. ??You can alsosend a secure electronic message to your doctor???s office to request appointments, renew medications or just ask a question. You can enroll at [email or web address] or register during your next office visit. [...] primary care provider, you may find a [facility] provider by calling [facility] at [phone]. For information about the plan of care [...] Physician Member Role: PCP Address: Address: [address] [place] [address]- Care Team Related Persons Name: ILDA DOWLING Address: [address] [address]
--- OUTSIDE RECORDS SUMMARY | 2023-02-05 11:18 | XMS_ITS | Continuity of Care Document ---
Author Name Unknown Organization [facility] Address [address] [place] [address]- Care Team Providers Care Automatic Spinning Lathe Operator Name Role Phone Mary SHAY, Bridgette Archibald Primary Care Physic payal [place] [facility] [place] 02/18/22 [facility] [address] [place] [address]- Allergies, Adverse Reactions, Alerts Substance Reaction Severity [...] (oldterm) 06/21/01 Given 1Result Comment: [facility]: [id number] 2Result Comment: [facility]: [id number] 3Result Comment: [facility]: [id number] 4Result Comment: [facility] 34228-918-09 5Result Comment: [05/02/2018] [facility] # [id number] 6Result Comment: [05/31/2017] [facility] [id number] 7Result Comment: [03/16/2014] Dr. Duffy 8Result Comment: [07/01/2015] diluent [id number] 08/24/17 Merck 9Admin Note: rcvd elsewhere Medications Advair Diskus 500 mcg-50 mcg inhalation powder 1, inhalation, Inhalation, 2 times a day, rinse mouth and throat after use j45.40, # 1 each, Refills 6, Tot. Refills 6, Maintenance, 01/19/22 12:24:00 EDT, Powder, Route to Pharmacy Electronically, [id number], [facility]/pharmacy #7... Start Date: 01/19/22 Status: Ordered albuterol 0.083% inhalation solution 3 mL = 2.5 mg, Inhalation, Every 6 hours, DX: J45.909, # 60 each, 0 Refills, Maintenance, 08/25/19 10:27:00 EST, Solution, [facility]/pharmacy #[id number], 160.5, cm, 07/19/19 13:59:00 [...] 1 Refills, Maintenance, 04/22/21 15:35:00 EDT, Tablet, [facility]/pharmacy #[id number], Partial fill upon patient request if the prescription is for a schedule II opioid drug., 160, cm, 01/20/21 14:22:00 EDT, Height,... Start Date: 04/22/21 Status: Ordered citalopram 20 mg oral tablet 20 mg, 1, tablet, By Mouth, Daily, # 90 tablet, Refills 1, Tot. Refills 1, Maintenance, 10/13/21 12:28:00 EDT, Route to Pharmacy Electronically, [facility]/pharmacy #[id number], 160, cm, 08/19/21 15:40:00 [...] capsule, 0 Refills, Maintenance, 11/19/21 16:31:00 EDT, [facility]/pharmacy #[id number], Partial fill upon patient [...] 07/31/21 9:32:00 EST, [id number] Partial fill upon patient request if the prescription is for a schedule II o... Start Date: 07/31/21 Status: Ordered Flonase 50 mcg/inh nasal spray 2 sprays, Nares, Both, Daily in AM, # 16 Gm, 6 Refills, Maintenance, 05/16/21 10:11:00 EST, [place], [facility]/pharmacy #7111, Partial fill upon patient request if the prescription is for a schedule II opioid drug., 2 sprays Nares, Both Daily in AM, 160, cm,... Start Date: 05/16/21 Status: Ordered loratadine 10 mg oral tablet 10 mg, 1, tablet, By Mouth, Daily, # 90 tablet, Refills 0, Tot. Refills 0, Maintenance, 11/27/21 9:50:00 EDT, [id number], 160, cm, 08/19/21 15:40:00 EST, Height, 63, kg, 12/12/20 13:26:00 EDT, Dry Weight Start Date: 11/27/21 Status: Ordered losartan 25 mg oral tablet 25 mg, 1, tablet, By Mouth, Daily, # 90 tablet, Refills 0, Tot. Refills 0, Maintenance, 01/26/22 17:51:00 EDT, [id number], [facility], 166, cm, 12/18/21 13:30:00 EDT, [...] tablet, Refills 11, Route to Pharmacy Electronically, [id number], 160, cm, 08/19/21 15:40:00 EST, Height, 63, [...] 90 capsule, 1 Refills, Maintenance, 10/23/21 14:10:00 EDT,[facility]/pharmacy #[id number], 160, cm, 08/19/21 15:40:00 [...] N0, ER positive, [place]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 2014(Confirmed) 4/14/14 Active Localized osteoarthritis of knee(Confirmed) Active Osteoporosis(Confirmed) [...] Personnel Name: Mary SHAY, Bridgette Archibald Address: [address] [place] [address]
--- OUTSIDE RECORDS SUMMARY | 2023-02-05 11:18 | XMS_ITS | Continuity of Care Document ---
Author Name Unknown Organization [facility] Address [address] [place] [address]- Care Team Providers Care Insurance Adviser Name Role Phone Mary SHAY, Bridgette Archibald Primary Care Physic payal [place] [facility] [place] 09/25/22 - 01/23/23 [facility] [address] [place] [address]- Attending Physician: Whitney Osman NP Admitting Physician: Whitney Osman NP Referring Physician: Bridgette Hernandez MD Allergies, Adverse Reactions, Alerts Substance Reaction Severity Status Augmentin nausea Active Immunizations Given and Recorded Vaccine Date Status Refusal Reason [id number] 12y+ bivalent booster vax 1 04/09/22 Given [...] Given 1Result Comment: [facility]: [id number] 2Result Comment: [facility]: [id number] 3Result Comment: [facility]: [id number] 4Result Comment: [facility]: 69512-787-86 5Result Comment: [facility] 21046-817-10 6Result Comment: [05/02/2018] [facility] # [id number] 7Result Comment: [05/31/2017] [facility] 24496-853-26 8Result Comment: [03/16/2014] Dr. Duffy 9Result Comment: [facility]: [id number] 10Result Comment: [07/01/2015] diluent [id number] 08/24/17 Merck 11Admin Note: rcvd elsewhere Medications [...] Mouth, Once, Administered after procedure - LOT [id number] EXP 01/2024, # 1 tablet, 0 Refills, [...] 0 Refills, Maintenance, 12/15/22 9:34:00 EDT, Tablet, [facility]/pharmacy #7111, Partial fill upon patient request [...] 11/17/22 8:17:00 EDT, Route to Pharmacy Electronically, [facility], 165, cm, 10/26/22 16:15:00 EDT, Height, 58.7, kg, 10/21/22 21:15:00 EDT, Dry Weight Start Date: 11/17/22 Stop Date: 12/17/22 Status: Ordered losartan 25 mg oral tablet 1 tablet = 25 mg, By Mouth, Daily, # 30 tablet, 0 Refills, Maintenance, 12/15/22 9:35:00 EDT, Tablet, [facility]/pharmacy #7111, Partial fill upon patient request [...] Team Personnel Name: Luis Bojorquez RN Position: [facility] RN Member Role: Primary Care Nurse Name: Mary SHAY, Bridgette Archibald Position: S Physician - Primary Care Member Role: PCP Address: Address: [address] [place] [address] Name: Paris De Jesus LPN Position: S RN Member Role: Primary Care Nurse Name: Lisa Leone RN Position: [facility] RN Member Role: Primary Care Nurse Care Team Related Persons Name: AMY PENDLETON Address: [address] [place] [address] Name: ILDA DOWLING Address: [address] [place] [address]
--- OUTSIDE RECORDS SUMMARY | 2023-02-05 11:18 | XMS_ITS | Continuity of Care Document ---
Author Name Unknown Organization [facility] Address [address] [place] [address]- Care Team Providers Care Restaurant Lead Name Role Phone Mary SHAY, Bridgette Archibald Primary Care Physic payal [facility] [place] 08/12[facility]22 - 10/10/22 [facility] [address] [place] [address]- Attending Physician: Bridgette Hernandez MD Allergies, Adverse Reactions, Alerts Substance Reaction Severity Status Augmentin nausea Active Immunizations Given and Recorded Vaccine Date Status Refusal Reason [id number] 12y+ bivalent booster vax 1 04/09/22 Given [...] Toxoid Vaccine (oldterm) 06/21/01 Given 1Result Comment: [facility]: [id number] 2Result Comment: [facility]: [id number] 3Result Comment: [facility]: [id number] 4Result Comment: [facility]: [id number] 5Result Comment: [facility] [id number] 6Result Comment: [05/02/2018] [facility] # [id number] 7Result Comment: [05/31/2017] [facility] [id number] 8Result Comment: [03/16/2014] Dr. Duffy 9Result Comment: [facility]: [id number] 10Result Comment: [07/01/2015] diluent [id number] 08/24/17 [employer]ck 11Admin Note: rcvd elsewhere Medications Advair Diskus 500 mcg-50 mcg inhalation powder 1, inhalation, Inhalation, 2 times a day, rinse mouth and throat after use j45.40, # 1 each, Refills 6, Tot. Refills 6, Maintenance, 01/19/22 12:24:00 EDT, Powder, Route to Pharmacy Electronically, [id number], [facility]/pharmacy #7... Start Date: 01/19/22 Status: Ordered Aerochamber See Instructions, # 1 each, Maintenance, Use as directed with albuterol inhalor Dx: asthma., 10/09/22 12:54:00 EDT, Supply, 166, cm, 10/09/22 11:48:00 EDT, Height, 59.9, kg, 09/16/22 12:58:00 EDT, Dry Weight Start Date: 10/09/22 Status: Ordered albuterol 0.083% inhalation solution 3 mL = 2.5 mg, Inhalation, Every 6 hours, DX: J45.909, # 60 each, 0 Refills, Maintenance, 08/25/19 10:27:00 EST, Solution, [facility]/pharmacy #[id number], 160.5, cm, 07/19/19 13:59:00 EST, Height, 55.6, kg, 03/15/19 15:53:00 EDT, Dry Weight Start Date: 08/25/19 Status: Ordered albuterol CFC free 90 mcg/inh inhalation aerosol 2, puffs, Inhalation, Every 4 hours, PRN, or cough, # 1 each, Refills 0, Tot. Refills 0, Maintenance, 10/09/22 12:54:00 EDT, Route to Pharmacy Electronically, [id number], [facility]/pharmacy #[id number], 166, cm, 10/09/22 11:48:00 EDT, He... Start Date: 10/09/22 Stop Date: 11/08/22 Status: Ordered Azithromycin 5 Day Dose Pack 250 mg oral tablet See Instructions, as directed on package labeling 2 tablets first day then 1 tablet daily for 4 more days, # 6 tablet, 0 Refills, Maintenance, 10/09/22 12:54:00 EDT, Tablet, [facility]/pharmacy #[id number], Partial fill upon patient request if the prescription is... Start Date: 10/09/22 Status: Ordered cetirizine 10 mg oral tablet 1 tablet = 10 mg, By Mouth, Daily, # 30 tablet, 1 Refills, Maintenance, 04/22/21 15:35:00 EDT, Tablet, [facility]/pharmacy #[id number], Partial fill upon patient request if the prescription is for a schedule II opioid drug., 160, cm, 01/20/21 14:22:00 EDT, Height,... Start Date: 04/22/21 Status: Ordered citalopram 20 mg oral tablet 20 mg, 1, tablet, By Mouth, Daily, # 90 tablet, Refills 1, Tot. Refills 1, Maintenance, 04/30/22 17:34:00 EST, Route to Pharmacy Electronically, [facility]/pharmacy #[id number], 166, cm, 02/13/22 15:01:00 EDT, [...] capsule, 0 Refills, Maintenance, 11/19/21 16:31:00 EDT, [facility]/pharmacy #[id number], Partial fill upon patient request [...] 07/31/21 9:32:00 EST, Route to Pharmacy Electronically, [facility]/pharmacy #[id number], Partial fill upon patient request if the prescription is for a schedule II o... Start Date: 07/31/21 Status: Ordered Flonase 50 mcg/inh nasal spray 2 sprays, Nares, Both, Daily in AM, # 16 Gm, 6 Refills, Maintenance, 05/16/21 10:11:00 EST, [place], [facility]/pharmacy #[id number], Partial fill upon patient request if the prescription is for a schedule II opioid drug., 2 sprays Nares, Both Daily in AM, 160, cm,... Start Date: 05/16/21 Status: Ordered gabapentin 100 mg oral capsule 1, capsule, By Mouth, 3 times a day, # 90 capsule, Refills 0, Maintenance, 09/10/22 9:14:00 EDT, Route to Pharmacy Electronically, [id number], 166, cm, 08/31/22 11:19:00 EDT, Height, 63, kg, 12/12/20 13:26:00 EDT, Dry Weight Start Date: 09/10/22 Stop Date: 10/10/22 Status: Ordered loratadine 10 mg oral tablet 10 mg, 1, tablet, By Mouth, Daily, # 90 tablet, Refills 0, Tot. Refills 0, Maintenance, 11/27/21 9:50:00 EDT, [id number], cm, 08/19/21 15:40:00 EST, Height, 63, kg, 12/12/20 13:26:00 EDT, Dry Weight Start Date: 11/27/21 Status: Ordered losartan 25 mg oral tablet 25 mg, 1, tablet, By Mouth, Daily, # 90 tablet, Refills 1, Tot. Refills 1, Maintenance, 04/10/22 9:35:00 EDT, [id number], 166, cm, 02/13/22 15:01:00 [...] tablet, Refills 11, Route to Pharmacy Electronically, [id number], 160, cm, 08/19/21 15:40:00 EST, Height, 63, kg, 12/12/20 13:26:00 EDT, Dry Weight Start Date: 09/09/21 Status: Ordered Multivitamin Daily, 0 Refills, Maintenance, 12/11/20 15:05:00 EDT, Partial fill upon patient request if the prescription is for a schedule II opioid drug. Start Date: 12/11/20 Status: Ordered predniSONE 10 mg oral tablet See Instructions, 4 tab x 2d, 3 tab x 2d, 2 tab x 2d 1st dose now, then with food in AM., # 18 tablet, 0 Refills, Acute 10/19/22 13:00:00 EDT, 10/09/22 12:55:00 EDT, [facility]/pharmacy #[id number], Partial fill upon patient request if the prescription is for a s... Start Date: 10/09/22 Stop Date: 10/19/22 Status: Ordered Protonix 40 mg oral delayed [...] capsule, 1 Refills, Maintenance, 05/25/22 9:54:00 EST, [facility]/pharmacy #[id number], 166, cm, 02/13/22 15:01:00 EDT, [...] infiltrating ductal carcinoma, T2 N0, ER positive, [place] negative, 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 Social History Social History Type Response Smoking Status Former smoker; Tobac co user in household: No; Other: Quit 30 years ago; Started at 16 YO 1/2 pack daily; entered on: 05/31/17 Sex Patient Care team information Care Team Personnel Name: Mary SHAY, Bridgette Archibald Position: [facility] Primary Care Physician Member Role: PCP Address: Address: [address] [place] [address]- Care Team Related Persons Name: AMY PENDLETON Address: [address] [place] [address] Name: ILDA DOWLING Address: [address] [place] [address]
--- OUTSIDE RECORDS SUMMARY | 2023-02-05 11:18 | XMS_ITS | Continuity of Care Document ---
Author Name Unknown Organization [facility] Address [address] [place] [address]- Care Team Providers Care Warranty Administrator Name Role Phone Mary SHAY, Bridgette Archibald Primary Care Physic payal Encounter [facility] Date(s): 06/07/20 - 07/07/20 [facility] [address] [place] [address]- Allergies, Adverse Reactions, Alerts Substance Reaction Severity [...] Toxoid Vaccine (oldterm) 06/21/01 Given 1Result Comment: [facility]: [id number] 2Result Comment: [facility] 07575-559-30 3Result Comment: [05/02/2018] [facility] # [id number] 4Result Comment: [05/31/2017] [facility] [id number] 5Result Comment: [03/16/2014] Dr. Duffy 6Result Comment: [07/01/2015] diluent [id number] 08/24/17 [employer]ck 7Admin Note: rcvd elsewhere Medications albuterol 0.083% inhalation solution 3 mL = 2.5 mg, Inhalation, Every 6 hours, DX: J45.909, # 60 each, 0 Refills, Maintenance, 08/25/19 10:27:00 EST, Solution, [facility]/pharmacy #[id number], 160.5, cm, 07/19/19 13:59:00 EST, Height, 55.6, kg, 03/15/19 15:53:00 EDT, Dry Weight Start Date: 08/25/19 Status: Ordered amiodarone 200 mg oral tablet 200 mg, 1, tablet, By Mouth, Daily, Prescribed by Dr. Car (Cardiology), # 90 tablet, Refills 0,Tot. Refills 0, Maintenance, 10/20/19 10:07:00 EDT, Route to Pharmacy Electronically, [facility]/pharmacy #[id number], 160.5, cm, 07/19/19 13:59:00 EST, Height, 55.... Start Date: 10/20/19 Status: Ordered Azithromycin 5 Day Dose Pack 250 mg oral tablet 1 pack/packet, By Mouth, Once, # 6 tablet, 0 Refills, Soft Stop, 08/23/19 16:55:00 EST, Tablet, [facility]/pharmacy #[id number], 160.5, cm, 07/19/19 13:59:00 EST, Height, 55.6, kg, 03/15/19 15:53:00 EDT, Dry Weight Start Date: 08/23/19 Status: Ordered barium sulfate 2% oral suspension See Instructions, dispense two 450 mg bottles. Drink one 450 ml bottle at 8am, and one 450 mL bottle 90 minutes prior to procedure., # 900 mL, 0 Refills, Maintenance, 06/05/19 15:49:07 EST, [facility]/pharmacy #[id number], dispense two 450 mg bottles. ; Drink on... Start Date: 06/05/19 Status: Ordered Breo Ellipta 100 mcg-25 mcg/inh inhalation powder 1 puffs, Inhalation, Daily, # 30 each, 5 Refills, Maintenance, 06/04/20 9:31:00 EST, Powder, [facility]/pharmacy #[id number], Substitute for Advair RX, 1 [...] 03/27/20 10:19:00 EDT, Route to Pharmacy Electronically, [facility]/pharmacy #[id number], 160.5, cm, 12/12/19 13:19:00 EDT, [...] 04/19/20 12:01:00 EDT, Route to Pharmacy Electronically, [facility]/pharmacy #[id number], 160.5, cm, 04/19/20 11:16:00 EDT, Height, 55.6, kg, 03/15/19 15:53:00 EDT, Dry Weight Start Date: 04/19/20 Status: Ordered losartan 25 mg oral tablet 25 mg, 1, tablet, By Mouth, Daily, # 90 tablet, Refills 3, Tot. Refills 3, Maintenance, 12/20/19 15:58:00 EDT, Route to Pharmacy Electronically, [facility] ([place]), 160.5, cm, 12/12/19 13:19:00 EDT, Height, 55.6, [...] 90 capsule, 1 Refills, Maintenance, 03/01/20 11:31:00 EDT,[facility]/pharmacy #[id number], 160.5, cm, 12/12/19 13:19:00 EDT, Height, 55.6, kg, 03/15/19 15:53:00 EDT, Dry Weight Start Date: 03/01/20 Status: Ordered Vitamin D3 = 1,000 International_Units, By Mouth, 0 Refills, Maintenance, 11/22/15 14:34:08 Start Date: 11/22/15 Status: Ordered Voltaren 1% topical gel 1 application, Topically, 4 times a day, # 100 Gm, 0 Refills, Maintenance, 07/13/19 17:07:00 EST, Gel, [facility]/pharmacy #[id number], 1 application Topically 4 times a day, 160.5, cm, 07/13/19 13:23:00 EST, Height, 55.6, kg, 03/15/19 15:53:00 EDT, Dry Weight Start Date: 07/13/19 Status: Ordered Xarelto 20 mg oral tablet See Instructions, 1 tablet by oral route every day with the evening meal, # 90 tablet, 1 Refills, Maintenance, 11/27/19 12:58:00 EDT, Tablet, [facility] ([place]), 160.5, cm, 07/19/19 13:59:00 EST, Height, 55.6, kg, 03/15/19 15:53:00 EDT, Dry We... Start Date: 11/27/19 Status: Ordered Xarelto 20 mg oral tablet See Instructions, 1 tablet by oral route every day with the evening meal, # 30 tablet, 0 Refills, Maintenance, 01/01/20 17:23:00 EDT, Tablet, [facility]/pharmacy #[id number], 160.5, cm, 12/12/19 13:19:00 EDT, [...] infiltrating ductal carcinoma, T2 N0, ER positive, [place]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 2013(Confirmed) 10/02/13 Active Osteoporosis(Confirmed) Active Hx of breast cancer(Confirmed) 2 10/2013 Active Wrist injury(Confirmed) Active 1Dermatologist is [place] 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, T2 N0, ER positive, [place] negative, 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 Social History Social History Type Response Smoking Status Former smoker; Tobac co user in household: No; Other: Quit 30 years ago; Started at 16 YO 1/2 pack daily; entered on: 05/31/17 Sex
--- OUTSIDE RECORDS SUMMARY | 2023-02-05 11:18 | XMS_ITS | Continuity of Care Document ---
Author Name Unknown Organization [facility] Address [address] [place] [address]- Care Team Providers Care Driver'S Education Instructor Name Role Phone Mary SHAY, Bridgette Archibald Primary Care Physic payal Encounter [facility] Date(s): 07/10/22 - 08/09/22 [facility] [address] [place] [address]- Allergies, Adverse Reactions, Alerts Substance Reaction Severity Status Augmentin nausea Active Immunizations Given and Recorded Vaccine Date Status Refusal Reason [id number] 12y+ bivalent booster vax 1 04/09/22 Given [...] Toxoid Vaccine (oldterm) 06/21/01 Given 1Result Comment: [facility]: [id number] 2Result Comment: [facility]: 84275-182-11 3Result Comment: [facility]: 55021-175-96 4Result Comment: [facility]: [id number] 5Result Comment: [facility] 22677-796-39 6Result Comment: [05/02/2018] [facility] # [id number] 7Result Comment: [05/31/2017] [facility] [id number] 8Result Comment: [03/16/2014] Dr. Duffy 9Result Comment: [facility]: [id number] 10Result Comment: [07/01/2015] diluent [id number] 08/24/17 [employer]ck 11Admin Note: rcvd elsewhere Medications Advair Diskus 500 mcg-50 mcg inhalation powder 1, inhalation, Inhalation, 2 times a day, rinse mouth and throat after use j45.40, # 1 each, Refills 6, Tot. Refills 6, Maintenance, 01/19/22 12:24:00 EDT, Powder, Route to Pharmacy Electronically, [id number], [facility]/pharmacy #7... Start Date: 01/19/22 Status: Ordered albuterol 0.083% inhalation solution 3 mL = 2.5 mg, Inhalation, Every 6 hours, DX: J45.909, # 60 each, 0 Refills, Maintenance, 08/25/19 10:27:00 EST, Solution, [facility]/pharmacy #[id number], 160.5, cm, 07/19/19 13:59:00 EST, Height, 55.6, kg, 03/15/19 15:53:00 EDT, Dry Weight Start Date: 08/25/19 Status: Ordered Bactrim DS 800 mg-160 mg oral tablet 1 tablet, By Mouth, Once, [facility] # 1 tablet, 0 Refills, Soft Stop, 12/24/20 12:01:00 EDT, Partial fill upon patient request if the prescription is for a schedule II opioid drug. Start Date: 12/24/20 Status: Ordered cetirizine 10 mg oral tablet 1 tablet = 10 mg, By Mouth, Daily, # 30 tablet, 1 Refills, Maintenance, 04/22/21 15:35:00 EDT, Tablet, [facility]/pharmacy #[id number], Partial fill upon patient request if the prescription is for a schedule II opioid drug., 160, cm, 01/20/21 14:22:00 EDT, Height,... Start Date: 04/22/21 Status: Ordered citalopram 20 mg oral tablet 20 mg, 1, tablet, By Mouth, Daily, # 90 tablet, Refills 1, Tot. Refills 1, Maintenance, 04/30/22 17:34:00 EST, Route to Pharmacy Electronically, [facility]/pharmacy #[id number], 166, cm, 02/13/22 15:01:00 EDT, Height, [...] capsule, 0 Refills, Maintenance, 11/19/21 16:31:00 EDT, [facility]/pharmacy #[id number], Partial fill upon patient request if [...] 07/31/21 9:32:00 EST, Route to Pharmacy Electronically, [facility]/pharmacy #[id number], Partial fill upon patient request if the prescription is for a schedule II o... Start Date: 07/31/21 Status: Ordered Flonase 50 mcg/inh nasal spray 2 sprays, Nares, Both, Daily in AM, # 16 Gm, 6 Refills, Maintenance, 05/16/21 10:11:00 EST, [place], [facility]/pharmacy #[id number], Partial fill upon patient request if the prescription is for a schedule II opioid drug., 2 sprays Nares, Both Daily in AM, 160, cm,... Start Date: 05/16/21 Status: Ordered gabapentin 100 mg oral capsule 1, capsule, By Mouth, 3 times a day, # 90 capsule, Refills 0, Maintenance, 07/05/22 16:05:00 EST, Route to Pharmacy Electronically, [facility], 166, cm, 05/29/22 11:40:00 EST, Height, 63, kg, 12/12/20 13:26:00 EDT, Dry Weight Start Date: 07/05/22 Stop Date: 08/04/22 Status: Ordered loratadine 10 mg oral tablet 10 mg, 1, tablet, By Mouth, Daily, # 90 tablet, Refills 0, Tot. Refills 0, Maintenance, 11/27/21 9:50:00 EDT, Route to Pharmacy Electronically, [facility]/pharmacy #[id number], 160, cm, 08/19/21 15:40:00 EST, Height, 63, kg, 12/12/20 13:26:00 EDT, Dry Weight Start Date: 11/27/21 Status: Ordered losartan 25 mg oral tablet 25 mg, 1, tablet, By Mouth, Daily, # 90 tablet, Refills 1, Tot. Refills 1, Maintenance, 10/21/22 9:35:00 EDT, Route to Pharmacy Electronically, [facility]/pharmacy #[id number], Appointment, 166, cm, 02/13/22 15:01:00 EDT, [...] tablet, Refills 11, Route to Pharmacy Electronically, [facility] [address], 160, cm, 08/19/21 15:40:00 EST, Height, 63, [...] capsule, 1 Refills, Maintenance, 05/25/22 9:54:00 EST, [facility]/pharmacy #[id number], 166, cm, 02/13/22 15:01:00 EDT, Height, [...] infiltrating ductal carcinoma, T2 N0, ER positive, [place]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 2013 Confirmed 10/02/13 Active Localized osteoarthritis of knee Confirmed Active Osteoporosis Confirmed Active Breast pain, left Confirmed Active Hx of breast cancer 2 Confirmed 10/2013 Active Wrist injury Confirmed Active 1[place]ermatologist [place] 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, T2 N0, ER positive, [place] negative, 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 Social History Social History Type Response Smoking Status Former smoker; Tobac co user in household: No; Other: Quit 30 years ago; Started at 16 YO 1/2 pack daily; entered on: 05/31/17 Sex Patient Care team information Care Team Personnel Name: Mary SHAY, Bridgette Archibald Position: [facility] Primary Care Physician Member Role: PCP Address: Address: [address] [place] [address]- Care Team Related Persons Name: AMY PENDLETON Address: [address] [place] [address] Name: ILDA DOWLING Address: [address] [place] [address]
--- OUTSIDE RECORDS SUMMARY | 2023-02-05 11:18 | XMS_ITS | Continuity of Care Document ---
Author Name Unknown Organization [facility] Address [address] [place] [address]- Care Team Providers Care Salsa Dance Instructor Name Role Phone Mary SHAY, Bridgette Archibald Primary Care Physic payal Encounter [facility] Date(s): 04/22/21 - 04/29/21 [facility] [address] [place] [address]- [place] Encounter Diagnosis Allergic sinusitis(Discharge Diagnosis) - 04/22/21 Attending Physician: Not on Staff, Attending MD Referring Physician: Not on Staff, Referring [...] 1Result Comment: [facility]: [id number] 2Result Comment: [facility]: [id number] 3Result Comment: [facility]: [id number] 4Result Comment: [facility] [id number] 5Result Comment: [05/02/2018] [facility] # [id number] 6Result Comment: [05/31/2017] [facility] [id number] 7Result Comment: [03/16/2014] Dr. Duffy 8Result Comment: [07/01/2015] diluent [id number] 08/24/17 Merck 9Admin Note: rcvd elsewhere Medications Advair Diskus 250 mcg-50 mcg inhalation powder 1, puffs, Inhalation, 2 times a day, # 180 each, Refills 1, Tot. Refills 1, Maintenance, 10/03/20 12:43:00 EDT, Route to Pharmacy Electronically, [id number], [facility]/pharmacy #[id number], 160.5, cm, 04/19/20 11:16:00 EDT, Height, 55.6,... Start Date: 10/03/20 Stop Date: 04/01/21 Status: Ordered albuterol 0.083% inhalation solution 3 mL = 2.5 mg, Inhalation, Every 6 hours, DX: J45.909, # 60 each, 0 Refills, Maintenance, 08/25/19 10:27:00 EST, Solution, [facility]/pharmacy #[id number], 160.5, cm, 07/19/19 13:59:00 EST, Height, 55.6, kg, 03/15/19 15:53:00 EDT, Dry Weight Start Date: 08/25/19 Status: Ordered Azithromycin 5 Day Dose Pack 250 mg oral tablet 1 pack/packet, By Mouth, Once, # 6 tablet, 0 Refills, Soft Stop, 04/10/21 16:39:00 EDT, Tablet, [facility]/pharmacy #[id number], Partial fill upon patient request if [...] Maintenance, 04/22/21 15:35:00 EDT, Tablet, [facility]/pharmacy #7111, Partial fill upon patient request if the prescription is for a schedule II opioid drug., 160, cm, 01/20/21 14:22:00 EDT, Height,... Start Date: 04/22/21 Status: Ordered citalopram 20 mg oral tablet 20 mg, 1, tablet, By Mouth, Daily, # 90 tablet, Refills 1, Tot. Refills 1, Maintenance, 03/26/21 14:13:00 EDT, Route to Pharmacy Electronically, [facility]/pharmacy #[id number], 160, cm, 01/20/21 14:22:00 EDT, Height, [...] 12/11/20 15:53:00 EDT, [id number] Partial fill upon patient request if the prescription is for a schedule II... Start Date: 12/11/20 Status: Ordered Flonase 50 mcg/inh nasal spray See Instructions, 2 sprays Nares twice daily x 1 week, then once daily x 1-2 weeks until symptoms improve, # 16 Gm, 0 Refills, Maintenance, 04/22/21 15:36:00 EDT, [place], [facility]/pharmacy #[id number], Partial fill upon patient request if the prescription is for... Start Date: 04/22/21 Status: Ordered loratadine 10 mg oral tablet 10 mg, 1, tablet, By Mouth, Daily, # 90 tablet, Refills 0, Tot. Refills 0, Maintenance, 11/28/20 9:28:00 EDT, Route to Pharmacy Electronically, [facility]/pharmacy #[id number], 160.5, cm, 11/26/20 11:39:00 EDT, Height, 55.6, kg, 03/15/19 15:53:00 EDT, Dry Weight Start Date: 11/28/20 Status: Ordered losartan 25 mg oral tablet 25 mg, 1, tablet, By Mouth, Daily, # 90 tablet, Refills 1, Tot. Refills 1, Maintenance, 03/26/21 13:41:00 EDT, Route to Pharmacy Electronically, [facility]/pharmacy #[id number], Appointment, 160, cm, 01/20/21 14:22:00 EDT, Height, 63, kg, 12/12/20 13:26:00 EDT, Start Date: 03/26/21 Status: Ordered metoprolol 25 [...] 90 capsule, 0 Refills, Maintenance, 04/09/21 14:31:00 EDT,[facility]/pharmacy #[id number], 160, cm, 01/20/21 14:22:00 EDT, Height, [...] N0, ER positive, [place] negative, 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 Diagnosis Diagnosis Type Effective Dates Health Status Cl inical Service Informant Allergic sinusitis Discharge Diagnosis 04/22/21 Social History Social History Type Response Smoking Status Former smoker; Tobac co user in household: No; Other: Quit 30 years ago; Started at 16 YO 1/2 pack daily; entered on: 05/31/17 Sex
--- OUTSIDE RECORDS SUMMARY | 2023-02-05 11:18 | XMS_ITS | Continuity of Care Document ---
Author Name Unknown Organization [facility] Address [address] [place] [address]- Care Team Providers Care Hooker Up Name Role Phone Mary SHAY, Bridgette Archibald Primary Care Physic payal Encounter [facility] Date(s): 04/09/22 - 05/09/22 [facility] [address] [place] [address]- Attending Physician: Rubens Pinto Admitting Physician: Rubens Pinto Referring Physician: AdmtrRubens Allergies, Adverse Reactions, Alerts Substance Reaction Severity Status Augmentin nausea Active Immunizations Given and Recorded Vaccine Date Status Refusal Reason [id number] 12y+ bivalent booster vax 1 04/09/22 Given [...] Toxoid Vaccine (oldterm) 06/21/01 Given 1Result Comment: [facility]: [id number] 2Result Comment: [facility]: [id number] 3Result Comment: [facility]: [id number] 4Result Comment: [facility]: [id number] 5Result Comment: [facility] [phone] 6Result Comment: [05/02/2018] [facility] # [id number] 7Result Comment: [05/31/2017] [facility] [id number] 8Result Comment: [03/16/2014] Dr. Duffy 9Result Comment: [facility]: [id number] 10Result Comment: [07/01/2015] diluent [id number] 08/24/17 Merck 11Admin Note: rcvd elsewhere Medications Advair Diskus 500 mcg-50 mcg inhalation powder 1, inhalation, Inhalation, 2 times a day, rinse mouth and throat after use j45.40, # 1 each, Refills 6, Tot. Refills 6, Maintenance, 01/19/22 12:24:00 EDT, Powder, Route to Pharmacy Electronically, [id number], [facility]/pharmacy #7... Start Date: 01/19/22 Status: Ordered albuterol 0.083% inhalation solution 3 mL = 2.5 mg, Inhalation, Every 6 hours, DX: J45.909, # 60 each, 0 Refills, Maintenance, 08/25/19 10:27:00 EST, Solution, [facility]/pharmacy #[id number], 160.5, cm, 07/19/19 13:59:00 [...] 1 Refills, Maintenance, 04/22/21 15:35:00 EDT, Tablet, [facility]/pharmacy #[id number], Partial fill upon patient request if the prescription is for a schedule II opioid drug., 160, cm, 01/20/21 14:22:00 EDT, Height,... Start Date: 04/22/21 Status: Ordered citalopram 20 mg oral tablet 20 mg, 1, tablet, By Mouth, Daily, # 90 tablet, Refills 1, Tot. Refills 1, Maintenance, 04/30/22 17:34:00 EST, Route to Pharmacy Electronically, [facility]/pharmacy #[id number], 166, cm, 02/13/22 15:01:00 EDT, [...] capsule, 0 Refills, Maintenance, 11/19/21 16:31:00 EDT, [facility]/pharmacy #[id number], Partial fill upon patient [...] 07/31/21 9:32:00 EST, Route to Pharmacy Electronically, [facility]/pharmacy #[id number], Partial fill upon patient request if the prescription is for a schedule II o... Start Date: 07/31/21 Status: Ordered Flonase 50 mcg/inh nasal spray 2 sprays, Nares, Both, Daily in AM, # 16 Gm, 6 Refills, Maintenance, 05/16/21 10:11:00 EST, [place], [facility]/pharmacy #[id number], Partial fill upon patient request if the prescription is for a schedule II opioid drug., 2 sprays Nares, Both Daily in AM, 160, cm,... Start Date: 05/16/21 Status: Ordered loratadine 10 mg oral tablet 10 mg, 1, tablet, By Mouth, Daily, # 90 tablet, Refills 0, Tot. Refills 0, Maintenance, 11/27/21 9:50:00 EDT, Route to Pharmacy Electronically, [facility]/pharmacy #[id number], 160, cm, 08/19/21 15:40:00 EST, Height, 63, kg, 12/12/20 13:26:00 EDT, Dry Weight Start Date: 11/27/21 Status: Ordered losartan 25 mg oral tablet 25 mg, 1, tablet, By Mouth, Daily, # 90 tablet, Refills 1, Tot. Refills 1, Maintenance, 04/10/22 9:35:00 EDT, Route to Pharmacy Electronically, [facility]/pharmacy #[id number], Appointment, 166, cm, 02/13/22 15:01:00 [...] tablet, Refills 11, Route to Pharmacy Electronically, [id number], 160, cm, 08/19/21 15:40:00 EST, Height, 63, [...] 90 capsule, 1 Refills, Maintenance, 10/23/21 14:10:00 EDT,[facility]/pharmacy #[id number], 160, cm, 08/19/21 15:40:00 EST, [...] Active Atrial fibrillation and flutter Confirmed Active Rotator cuff syndrome of left shoulder Confirmed Active Hiatal hernia with gastroesophageal reflux Confirmed Active H/O sebaceous cyst Confirmed Active Abdominal hernia Confirmed Active History of basal cell carcinoma of skin 1 Confirmed Active h/o Hypertension Confirmed Active LUQ abdominal pain Confirmed Active Cancer of lower-outer quadrant of female breast, Left, infiltrating ductal carcinoma, T2 N0, ER positive, [place]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 2014 Confirmed 10/02/13 Active Localized osteoarthritis of knee Confirmed Active Osteoporosis Confirmed Active Hx of breast cancer 2 [...] daily; entered on: 05/31/17 Sex Note * Event Display: Cardiology Office Note, Non- Authored Date: * Event Display: Holter Report Authored Date: * Event Display: Holter Report Authored Date: * Event Display: Holter Report Authored Date: * Event Display: Laboratory Result Scanned Authored Date: * Event Display: Laboratory Result Scanned Authored Date: * Event Display: Laboratory Result Scanned Authored Date: Cardiology Consult note * Event Display: Consult Note Cardiology Authored Date: * Event Display: Consult Note Cardiology Authored Date: XR Chest Views * Event Display: X-Ray Chest Authored Date: CT Head * Event Display: CT Scan Head Authored Date: Patient Care team information Care Team Personnel Name: Mary SHAY, Bridgette Archibald Position: [facility] Primary Care Physician Member Role: PCP Address: Address: [address] [place] [address]- Care Team Related Persons Name: ILDA DOWLING Address: home [address] [place] [address]
--- OUTSIDE RECORDS SUMMARY | 2023-02-05 11:18 | XMS_ITS | Continuity of Care Document ---
Author Name Unknown Organization [facility] Address [address] [facility] [place] [address]- Care Team Providers Care Speed Belt Sander Name Role Phone Mary SHAY, Bridgette Archibald Primary Care Physic payal Encounter [facility] Date(s): 09/16/22 - 11/27/22 [facility] [address] [place] [address]- Attending Physician: Miguel Martinez MD Admitting Physician: Miguel Martinez MD Referring Physician: Bridgette Hernandez MD Allergies, Adverse Reactions, Alerts Substance Reaction Severity Status Augmentin nausea Active Immunizations Given and Recorded Vaccine Date Status Refusal Reason [id number] 12y+ bivalent booster vax 1 04/09/22 Given [...] Toxoid Vaccine (oldterm) 06/21/01 Given 1Result Comment: [facility]: [id number] 2Result Comment: [facility]: [id number] 3Result Comment: [facility]: [id number] 4Result Comment: [facility]: [id number] 5Result Comment: [facility] [id number] 6Result Comment: [05/02/2018] [facility] # [id number] 7Result Comment: [05/31/2017] [facility] [id number] 8Result Comment: [03/16/2014] Dr. Duffy 9Result Comment: [facility]: [id number] 10Result Comment: [07/01/2015] diluent [id number] 08/24/17 Merck 11Admin Note: rcvd elsewhere Medications [...] Mouth, Once, Administered after procedure - LOT [id number] EXP 01/2024, # 1 tablet, 0 Refills, [...] 11/17/22 8:17:00 EDT, Route to Pharmacy Electronically, [facility], 165, cm, 10/26/22 16:15:00 EDT, Height, 58.7, [...] N0, ER positive, [place] negative, 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 Social History Social History Type Response Smoking Status Former smoker; Tobac co user in household: No; Other: Quit 30 years ago; Started at 16 YO 1/2 pack daily; entered on: 05/31/17 Sex Patient Care team information Care Team Personnel Name: Luis Bojorquez RN Position: S RN Member Role: Primary Care Nurse Name: Mary SHAY, Bridgette Archibald Position: [facility] Physician - Primary Care Member Role: PCP Address: Address: [address] [place] [id number] Name: Paris De Jesus LPN Position: S RN Member Role: Primary Care Nurse Name: Keya Rollins RN Position: S RN Member Role: Primary Care Nurse Name: Lisa Leone RN Position: S RN Member Role: Primary Care Nurse Care Team Related Persons Name: KEERTHIAMY MARTIN Address: [address] [place] [address] Name: ILDA DOWLING Address: [address] [place] [address]
--- OUTSIDE RECORDS SUMMARY | 2023-02-05 11:18 | XMS_ITS | Continuity of Care Document ---
Author Name Unknown Organization [facility] Address [address] [place] [address]- Care Team Providers Care Embalmer/Funeral Director Name Role Phone Mary SHAY, Bridgette Archibald Primary Care Physic payal Encounter [facility] Date(s): 12/04/20 - 01/03/21 [facility] [address] [place] [address]- Allergies, Adverse Reactions, Alerts Substance Reaction Severity [...] 06/21/01 Given 1Result Comment: [facility]: [id number] 2Result Comment: [facility] [id number] 3Result Comment: [05/02/2018] [facility] # [id number] 4Result Comment: [05/31/2017] [facility] [id number] 5Result Comment: [03/16/2014] Dr. Duffy 6Result Comment: [07/01/2015] diluent [id number] 08/24/17 [employer]ck 7Admin Note: rcvd elsewhere Medications Advair Diskus 250 mcg-50 mcg inhalation powder 1, puffs, Inhalation, 2 times a day, # 180 each, Refills 1, Tot. Refills 1, Maintenance, 10/03/20 12:43:00 EDT, Route to Pharmacy Electronically, [id number], [facility]/pharmacy #[id number], 160.5, cm, 04/19/20 11:16:00 EDT, Height, 55.6,... Start Date: 10/03/20 Stop Date: 04/01/21 Status: Ordered albuterol 0.083% inhalation solution 3 mL = 2.5 mg, Inhalation, Every 6 hours, DX: J45.909, # 60 each, 0 Refills, Maintenance, 08/25/19 10:27:00 EST, Solution, [facility]/pharmacy #[id number], 160.5, cm, 07/19/19 13:59:00 EST, Height, 55.6, kg, 03/15/19 15:53:00 EDT, Dry Weight Start Date: 08/25/19 Status: Ordered Bactrim DS 800 mg-160 mg oral tablet 1 tablet, By Mouth, Once, [facility] # 1 tablet, 0 Refills, Soft Stop, 12/24/20 12:01:00 EDT, Partial fill upon patient request if the prescription is for a schedule II opioid drug. Start Date: 12/24/20 Status: Ordered cetirizine 10 mg oral tablet 1 tablet = 10 mg, By Mouth, Daily, # 30 tablet, 0 Refills, Maintenance, 12/27/20 14:45:00 EDT, Tablet, [facility]/pharmacy #[id number], Partial fill upon patient request if the prescription is for a schedule II opioid drug., 160, cm, 12/27/20 13:23:00 EDT, Height,... Start Date: 12/27/20 Status: Ordered citalopram 20 mg oral tablet 20 mg, 1, tablet, By Mouth, Daily, # 90 tablet, Refills 1, Tot. Refills 1, Maintenance, 09/30/20 11:37:00 EDT, Route to Pharmacy Electronically, [facility]/pharmacy #[id number], 160.5, cm, 04/19/20 11:16:00 EDT, Height, [...] 12/11/20 15:53:00 EDT, Route to Pharmacy Electronically, [facility]/pharmacy #[id number], Partial fill upon patient request if the prescription is for a schedule II... Start Date: 12/11/20 Status: Ordered loratadine 10 mg oral tablet 10 mg, 1, tablet, By Mouth, Daily, # 90 tablet, Refills 0, Tot. Refills 0, Maintenance, 11/28/20 9:28:00 EDT, Route to Pharmacy Electronically, [facility]/pharmacy #[id number], 160.5, cm, 11/26/20 11:39:00 EDT, Height, 55.6, kg, 03/15/19 15:53:00 EDT, Dry Weight Start Date: 11/28/20 Status: Ordered losartan 25 mg oral tablet 25 mg, 1, tablet, By Mouth, Daily, # 90 tablet, Refills 0, Tot. Refills 0, Maintenance, 11/29/20 14:27:00 EDT, Route to Pharmacy Electronically, [facility]/pharmacy #[id number], Appointment, 160.5, cm, 11/26/20 11:39:00 EDT, [...] 90 capsule, 0 Refills, Maintenance, 11/29/20 14:28:00 EDT,[facility]/pharmacy #[id number], 160.5, cm, 11/26/20 11:39:00 EDT, Height, [...] N0, ER positive, [place]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 2013(Confirmed) 10/02/13 Active Osteoporosis(Confirmed) [...]
--- OUTSIDE RECORDS SUMMARY | 2023-02-05 11:18 | XMS_ITS | Continuity of Care Document ---
Author Name Unknown Organization [facility] Address [address] [facility] [place] [address]- Care Team Providers Care Manager Biologics Name Role Phone Mary SHAY, Bridgette Archibald Primary Care Physic payal Encounter [facility] Date(s): 11/26/20 - 12/03/20 [facility] [address] [place] [address]- Attending Physician: Miguel Martinez MD Admitting Physician: [...] Toxoid Vaccine (oldterm) 06/21/01 Given 1Result Comment: [facility]: [id number] 2Result Comment: [facility] [phone] 3Result Comment: [05/02/2018] [facility] # [phone] 4Result Comment: [05/31/2017] [facility] 67517-441-09 5Result Comment: [03/16/2014] Dr. Duffy 6Result Comment: [07/01/2015] diluent [id number] 08/24/17 Merck 7Admin Note: rcvd elsewhere Medications Advair Diskus 250 mcg-50 mcg inhalation powder 1, puffs, Inhalation, 2 times a day, # 180 each, Refills 1, Tot. Refills 1, Maintenance, 10/03/20 12:43:00 EDT, Route to Pharmacy Electronically, [id number], [facility]/pharmacy #[id number], 160.5, cm, 04/19/20 11:16:00 EDT, Height, 55.6,... Start Date: 10/03/20 Stop Date: 04/01/21 Status: Ordered albuterol 0.083% inhalation solution 3 mL = 2.5 mg, Inhalation, Every 6 hours, DX: J45.909, # 60 each, 0 Refills, Maintenance, 08/25/19 10:27:00 EST, Solution, [facility]/pharmacy #[id number], 160.5, cm, 07/19/19 13:59:00 [...] 5 Refills, Maintenance, 06/04/20 9:31:00 EST, Powder, [facility]/pharmacy #[id number], Substitute for Advair RX, 1 puffs Inhalation Daily, 160.5, cm, 04/19/20 11:16:00 EDT, Height, 55.6, kg, 03/15/19 15:53:00 EDT, Dry Weight Start Date: 06/04/20 Status: Ordered citalopram 20 mg oral tablet 20 mg, 1, tablet, By Mouth, Daily, # 90 tablet, Refills 1, Tot. Refills 1, Maintenance, 09/30/20 11:37:00 EDT, Route to Pharmacy Electronically, [facility]/pharmacy #[id number], 160.5, cm, 04/19/20 11:16:00 EDT, Height, 55.6, kg, 03/15/19 15:53:00 EDT, Dry Weight Start Date: 09/30/20 Status: Ordered Diltiazem CD Capsule 240 mg, By Mouth, Daily, Maintenance, 12/04/13 14:47:28 EDT Start Date: 12/04/13 Status: Ordered doxycycline hyclate 100 mg oral capsule See Instructions, 2 capsules by mouth for 1 dose, # 2 capsule, 0 Refills, Maintenance, 11/16/20 12:26:00 EDT, [facility]/pharmacy #[id number], Partial fill upon patient [...] 11/28/20 9:28:00 EDT, Route to Pharmacy Electronically, [facility]/pharmacy #[id number], 160.5, cm, 11/26/20 11:39:00 EDT, Height, 55.6, kg, 03/15/19 15:53:00 EDT, Dry Weight Start Date: 11/28/20 Status: Ordered losartan 25 mg oral tablet 25 mg, 1, tablet, By Mouth, Daily, # 90 tablet, Refills 0, Tot. Refills 0, Maintenance, 11/29/20 14:27:00 EDT, Route to Pharmacy Electronically, [facility]/pharmacy #[id number], Appointment, 160.5, cm, 11/26/20 11:39:00 EDT, Height, 55.6, kg, 03/15/19 15:53:00 EDT... Start Date: 11/29/20 Status: Ordered Multivitamin Daily, 0 Refills, Maintenance, [...] 90 capsule, 0 Refills, Maintenance, 11/29/20 14:28:00 EDT,[facility]/pharmacy #[id number], 160.5, cm, 11/26/20 11:39:00 EDT, [...] infiltrating ductal carcinoma, 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
--- OUTSIDE RECORDS SUMMARY | 2023-02-05 11:18 | XMS_ITS | Continuity of Care Document ---
Author Name Unknown Organization [facility] Address [address] [place] [address]- Care Team Providers Care Stores Naval Name Role Phone Mary SHAY, Bridgette Archibald Primary Care Physic payal Encounter [facility] Date(s): 01/04/23 - 02/03/23 [facility] [address] [place] [address]- Allergies, Adverse Reactions, Alerts Substance Reaction Severity Status Augmentin nausea Active Immunizations Given and Recorded Vaccine Date Status Refusal Reason [id number] 12y+ bivalent booster vax 1 04/09/22 Given [...] Vaccine (oldterm) 06/21/01 Given 1Result Comment: [facility]: [id number] 2Result Comment: [facility]: 72031-533-28 3Result Comment: [facility]: [id number] 4Result Comment: [facility]: 90883-059-61 5Result Comment: [facility] 61253-991-26 6Result Comment: [05/02/2018] [facility] # [id number] 7Result Comment: [05/31/2017] [facility] [phone] 8Result Comment: [03/16/2014] Dr. Duffy 9Result Comment: [facility]: [id number] 10Result Comment: [07/01/2015] diluent [id number] 08/24/17 [employer]ck 11Admin Note: rcvd elsewhere Medications [...] Gm, 1 Refills, Maintenance, 10/16/22 10:07:00 EDT, [facility]/pharmacy #[id number], Partial fill upon patient [...] Once, Administered after procedure - [facility] LOT [id number] EXP 01/2024, # 1 tablet, 0 Refills, [...] 0 Refills, Maintenance, 12/15/22 9:34:00 EDT, Tablet, [facility]/pharmacy #[id number], Partial fill upon patient [...] mg oral capsule 1, capsule, By Mouth, 2 times a day, # 60 capsule, Refills 3, Tot. Refills 3, Maintenance, 01/26/2313:53:00 EDT, Route to Pharmacy Electronically, [facility]/pharmacy #[id number], 163, cm, 01/07/23 9:40:00 EDT, Height, 53, kg, 01/01/23 18:32:00 EDT, Dry Weight Start Date: 01/26/23 Stop Date: 05/26/23 Status: Ordered losartan 25 mg oral tablet 1 tablet = 25 mg, By Mouth, Daily, # 30 tablet, 0 Refills, Maintenance, 12/15/22 9:35:00 EDT, Tablet, [facility]/pharmacy #[id number], Partial fill upon patient [...] EVERY DAY Start Date: 01/07/23 Status: Ordered Spiriva HandiHaler 18 mcg inhalation capsule See Instructions, INHALE CONTENTS OF 1 CAPSULE EVERY DAY, # 30 capsule, 1 Refills, Maintenance, 01/30/23 11:27:00 EDT, [facility]/pharmacy #[id number], 163, cm, 01/07/23 9:40:00 EDT, Height, 53, kg, 01/01/23 18:32:00 EDT, Dry Weight Start Date: 01/30/23 Status: Ordered Tiotropium See Instructions, Inhalation Daily [...] RN Position: [facility] RN Member Role: Primary Care Nurse Name: Mary SHAY, Bridgette Archibald Position: [facility] Physician - Primary Care Member Role: PCP Address: Address: [address] [place] [address] Name: Paris De Jesus LPN Position: S RN Member Role: Primary Care Nurse Name: Lisa Leone RN Position: [facility] RN Member Role: Primary Care Nurse Care Team Related Persons Name: AMY PENDLETON Address: [address] [place] [address] Name: ILDA DOWLING Address: [address] [place] [address]
--- OUTSIDE RECORDS SUMMARY | 2023-02-05 11:18 | XMS_ITS | Continuity of Care Document ---
Author Name Unknown Organization [facility] Address [address] [place] [address]- Care Team Providers Care Material Stockkeeper Yard Name Role Phone Mary SHAY, Bridgette Archibald Primary Care Physic payal Encounter [facility] Date(s): 04/02/21 - 06/07/21 [facility] [address] [place] [address]- Attending Physician: Hussein Arnold MD Admitting Physician: Hussein Arnold MD Allergies, Adverse Reactions, Alerts Substance Reaction [...] Vaccine (oldterm) 06/21/01 Given 1Result Comment: [facility]: [id number] 2Result Comment: [facility]: [id number] 3Result Comment: [facility]: [id number] 4Result Comment: [facility] [id number] 5Result Comment: [05/02/2018] [facility] # [id number] 6Result Comment: [05/31/2017] [facility] [id number] 7Result Comment: [03/16/2014] Dr. Duffy 8Result Comment: [07/01/2015] diluent [id number] 08/24/17 [employer]ck 9Admin Note: rcvd elsewhere Medications albuterol 0.083% inhalation solution 3 mL = 2.5 mg, Inhalation, Every 6 hours, DX: J45.909, # 60 each, 0 Refills, Maintenance, 08/25/19 10:27:00 EST, Solution, [facility]/pharmacy #[id number], 160.5, cm, 07/19/19 13:59:00 EST, Height, 55.6, kg, 03/15/19 15:53:00 EDT, Dry Weight Start Date: 08/25/19 Status: Ordered Azithromycin 5 Day Dose Pack 250 mg oral tablet 1 pack/packet, By Mouth, Once, # 6 tablet, 0 Refills, Soft Stop, 04/10/21 16:39:00 EDT, Tablet, [facility]/pharmacy #[id number], Partial fill upon patient [...] 1 Refills, Maintenance, 04/22/21 15:35:00 EDT, Tablet, [facility]/pharmacy #[id number], Partial fill upon patient request if the prescription is for a schedule II opioid drug., 160, cm, 01/20/21 14:22:00 EDT, Height,... Start Date: 04/22/21 Status: Ordered citalopram 20 mg oral tablet 20 mg, 1, tablet, By Mouth, Daily, # 90 tablet, Refills 1, Tot. Refills 1, Maintenance, 03/26/21 14:13:00 EDT, Route to Pharmacy Electronically, [facility]/pharmacy #[id number], 160, cm, 01/20/21 14:22:00 EDT, Height, [...] 12/11/20 15:53:00 EDT, [id number] Partial fill upon patient request if the prescription is for a schedule II... Start Date: 12/11/20 Status: Ordered loratadine 10 mg oral tablet 10 mg, 1, tablet, By Mouth, Daily, # 90 tablet, Refills 0, Tot. Refills 0, Maintenance, 11/28/20 9:28:00 EDT, [facility], 160.5, cm, 11/26/20 11:39:00 EDT, Height, 55.6, kg, 03/15/19 15:53:00 EDT, Dry Weight Start Date: 11/28/20 Status: Ordered losartan 25 mg oral tablet 25 mg, 1, tablet, By Mouth, Daily, # 90 tablet, Refills 1, Tot. Refills 1, Maintenance, 03/26/21 13:41:00 EDT, [facility] to [facility] Electronically[id number], 160, cm, 01/20/21 14:22:00 EDT, [...] 90 capsule, 0 Refills, Maintenance, 04/09/21 14:31:00 EDT,[facility]/pharmacy #[id number], 160, cm, 01/20/21 14:22:00 EDT, Height, [...] infiltrating ductal carcinoma, T2 N0, ER positive, [place]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
--- OUTSIDE RECORDS SUMMARY | 2023-02-05 11:19 | XMS_ITS | Continuity of Care Document ---
Author Name Unknown Organization [facility] Address [address] [place] [address]- Care Team Providers Care Retail Client Solutions Analyst Name Role Phone Mary SHAY, Bridgette Archibald Primary Care Physic payal [place] [facility] [place] 11/[place]/22 [facility] [address] [place] [address]- [place] Encounter Diagnosis Anemia(Discharge Diagnosis) - 11/20/22 RAMONA (acute kidney injury)(Discharge Diagnosis) - 11/20/22 Attending Physician: Mary SHAY, Bridgette Archibald Allergies, Adverse Reactions, Alerts Substance Reaction Severity Status Augmentin nausea Active Immunizations Given and Recorded Vaccine Date Status Refusal Reason [id number] 12y+ bivalent booster vax 1 04/09/22 Given [...] 1Result Comment: [facility]: [id number] 2Result Comment: [facility]: [phone] 3Result Comment: [facility]: [phone] 4Result Comment: [facility]: [phone] 5Result Comment: [facility] [phone] 6Result Comment: [05/02/2018] [facility] # [phone] 7Result Comment: [05/31/2017] [facility] [phone] 8Result Comment: [03/16/2014] Dr. Duffy 9Result Comment: [facility]: [phone] 10Result Comment: [07/01/2015] diluent [id number] 08/24/17 Merck 11Admin Note: rcvd elsewhere Medications [...] Once, Administered after procedure - [facility] LOT [id number] EXP 01/2024, # 1 tablet, 0 Refills, [...] 11/17/22 8:17:00 EDT, Route to Pharmacy Electronically, [id number], 165, cm, 10/26/22 16:15:00 EDT, Height, 58.7, [...] N0, ER positive, [place] negative, 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 Diagnosis Diagnosis Type Effective Dates Health Status Cl inical Service Informant Anemia Discharge Diagnosis 11/20/22 RAMONA (acute kidney injury) Discharge Diagnosis 11/20/22 Vital Signs Most recent to oldest [Reference Range]: 1 Height 165 cm (11/20/22 2:22 PM) Weight 53.18 kg (11/20/22 2:22 PM) Oxygen Saturation [94-100 %] 98 % (11/20/22 2:22 PM) Pulse Rate [55-90 bpm] 59 bpm (11/20/22 2:22 PM) Body Mass Index [18.5-24.99 kg/m2] 19.53 kg/m2 (11/20/22 2:22 PM) Blood Pressure [90-138/55-84 mm Hg] 96/6 1mm Hg (11/20/22 2:22 PM) Weight Obtained Via Patient/family state d (11/20/22 2:22 PM) Social History Social History Type Response Smoking Status Former smoker; Tobac co user in household: No; Other: Quit 30 years ago; Started at 16 YO 1/2 pack daily; entered on: 05/31/17 Sex Note * Ernestina Lopes: PERFORM, SIGN, VERIFY Event Display: Patient Education/Instruction Authored Date: [id number] [facility] *Kisha Bowman [facility] Clinical Summary Name ERNESTINA ECHEVARRIA Age 82 Years 1940 PCP Mary SHAY, Bridgette Archibald PCP Visit Date 11/20/2022 13:54:00 Additional Instructions: Scheduled Appointments?? Future Appointments ?*[facility] ?[address]??[place],??[place],??[address] ?Phone:??--?Fax:??-- ?Appt. Date:??11/24/2022?1:15 PM ?Scheduled Provider:??Juan SHAY, Miguel Carrasco ?[facility] ?[address]??[place],??[place],??[address] ?Phone:??[phone]?Fax:??-- ?Appt. Date:??12/24/2022?1:00 PM ?Scheduled Provider:??[facility] 3D Mammo Rm 4 ?*[facility] ?[address]??[place],??[place],??[address] ?Phone:??--?Fax:??-- ?Appt. Date:??12/24/2022?1:30 PM ?Scheduled Provider:??[facility] ANTHROPOLOGICAL LINGUIST , Whitney Joiner ?*[facility] ?[address]??[place],??[place],??[address] ?Phone:??--?Fax:??-- ?Appt. Date:??01/06/2023?11:20 AM ?Scheduled Provider:??Kwan SHAY, Renata Trejo Follow-Up Instructions ?? Diagnosis Anemia, unspecified; Acute kidney failure, unspecified Medications: Please continue your medications until treatment is completed or stopped by your provider. Discuss any questions related to medications with your provider. Medications to Continue with No Changes These medications were not printed or sent to your pharmacy Albuterol (Albuterol (Eqv-Ventolin HFA) 90 mcg/inh inhalation aerosol) 2 puff(s) Inhalation every 6hours. Refills: 1. Next Dose: amiODARONE (amiodarone 200 mg oral tablet) 1 tablet in morning, 0.5 tablet in evening. Next Dose: apixaban (Eliquis 5 mg oral tablet) 1 tab(s) Oral twice a day. Next Dose: Benzonatate (benzonatate 100 mg oral capsule) 1 capsule Oral 3 times a day as needed Cough. Next Dose: Citalopram (citalopram 20 mg oral tablet) TAKE 1 TABLET BY MOUTH EVERY DAY. Next Dose: Diltiazem (Cardizem CD 180 mg/24 hours oral capsule, extended release) 2 capsule Oral Daily. Next Dose: Doxycycline (Doxycycline Tablet) 100 Milligram Oral Daily for 19 Days. Next Dose: Durable Medical Equipment (Aerochamber w/Mask (Large)) For use with Advair HFA. Refills: 0. Next Dose: Famotidine (famotidine 20 mg oral tablet) 1 tab(s) Oral twice a day. Next Dose: Fluconazole (fluconazole 100 mg oral tablet) 1 tab(s) Oral Daily for 13 Days. Next Dose: Fluticasone-Salmeterol (Advair HFA 230 mcg / 21 mcg) 2 puff(s) Inhalation twice a day. Use with spacer rinse mouth and throat after use. Refills: 0. Next Dose: Gabapentin (gabapentin 100 mg oral capsule) 1 capsule Oral 3 times a day for 30 Days. Refills: 0. Next Dose: Losartan (losartan 25 mg oral tablet) 1 tab(s) Oral Daily. Next Dose: Metoprolol (Metoprolol Tartrate 50 mg oral tablet) 0.5 tab(s) Oral twice a day. Next Dose: Montelukast (montelukast 10 mg oral tablet) 1 tab(s) Oral Daily. Next Dose: Pantoprazole (pantoprazole 40 mg oral delayed release tablet) TAKE 1 TABLET BY MOUTH EVERY DAY. Next Dose: Tiotropium Inhalation Daily use two inhalations of one capsule for each dose. Next Dose: Allergy Info:?? Augmentin Medications Given This Visit Future Orders ?Comprehensive Metabolic Panel? Order Date:11/20/22?- Complete on or after?11/20/22 ?CBC w/ Differential? Order Date:11/20/22?- Complete on or after?11/20/22 Vital Signs Height 165 cm Weight 53.18 kg BMI 19.53 kg/m2 Blood Pressure 96 mm Hg/61 mm Hg Temperature Pulse Rate 59 bpm Respiratory Rate 02 Sat Mode of Delivery 98 %/ You can now view a summary of your hospital visit from the comfort of your home through a free online portal called [email or web address]. [email or web address] is a website that allows you to securely view your medical information including discharge summary, medications and follow-up visits. ??You can alsosend a secure electronic message to your doctor???s office to request appointments, renew medications or just ask a question. You can enroll at [email or web address] or register during your next office visit. [...] primary care provider, you may find a [facility] provider by calling [facility] [employer] Link at [phone]. For information about the plan of care [...] Primary Care Member Role: PCP Address: Address: [address] [place] [address] Name: Paris De Jesus LPN Position: S RN Member Role: Primary Care Nurse Name: Keya Rollins RN Position: S RN Member Role: Primary Care Nurse Name: Lisa Leone RN Position: S RN Member Role: Primary Care Nurse Care Team Related Persons Name: AMY PENDLETON Address: [address] [address] Name: ILDA DOWLING Address: [address] [address]
--- OUTSIDE RECORDS SUMMARY | 2023-02-05 11:19 | XMS_ITS | Continuity of Care Document ---
Author Name Unknown Organization [facility] Address [address] [facility] [facility] [place] [address]- Care Team Providers Care Target Setter Name Role Phone Mary SHAY, Bridgette Archibald Primary Care Physic payal Encounter [facility] [place] Date(s): 12/24/20 - 12/31/20 [facility] [address] [place] [address]- Attending Physician: Miguel Martinez MD Admitting Physician: [...] Toxoid Vaccine (oldterm) 06/21/01 Given 1Result Comment: [facility]: 67492-005-12 2Result Comment: [facility] 58461-832-51 3Result Comment: [05/02/2018] [facility] # 71956-959-42 4Result Comment: [05/31/2017] [facility] 14708-992-12 5Result Comment: [03/16/2014] Dr. Duffy 6Result Comment: [07/01/2015] diluent [id number] 08/24/17 Merck 7Admin Note: rcvd elsewhere Medications Advair Diskus 250 mcg-50 mcg inhalation powder 1, puffs, Inhalation, 2 times a day, # 180 each, Refills 1, Tot. Refills 1, Maintenance, 10/03/20 12:43:00 EDT, Route to Pharmacy Electronically, [id number], [facility]/pharmacy #[id number], 160.5, cm, 04/19/20 11:16:00 EDT, Height, 55.6,... Start Date: 10/03/20 Stop Date: 04/01/21 Status: Ordered albuterol 0.083% inhalation solution 3 mL = 2.5 mg, Inhalation, Every 6 hours, DX: J45.909, # 60 each, 0 Refills, Maintenance, 08/25/19 10:27:00 EST, Solution, [facility]/pharmacy #[id number], 160.5, cm, 07/19/19 13:59:00 EST, Height, 55.6, kg, 03/15/19 15:53:00 EDT, Dry Weight Start Date: 08/25/19 Status: Ordered Bactrim DS 800 mg-160 mg oral tablet 1 tablet, By Mouth, Once, [facility]-, # 1 tablet, 0 Refills, Soft Stop, 12/24/20 12:01:00 EDT, Partial fill upon patient request if the prescription is for a schedule II opioid drug. Start Date: 12/24/20 Status: Ordered cetirizine 10 mg oral tablet 1 tablet = 10 mg, By Mouth, Daily, # 30 tablet, 0 Refills, Maintenance, 12/27/20 14:45:00 EDT, Tablet, [facility]/pharmacy #[id number], Partial fill upon patient request if the prescription is for a schedule II opioid drug., 160, cm, 12/27/20 13:23:00 EDT, Height,... Start Date: 12/27/20 Status: Ordered citalopram 20 mg oral tablet 20 mg, 1, tablet, By Mouth, Daily, # 90 tablet, Refills 1, Tot. Refills 1, Maintenance, 09/30/20 11:37:00 EDT, Route to Pharmacy Electronically, [facility]/pharmacy #[id number], 160.5, cm, 04/19/20 11:16:00 EDT, [...] 12/11/20 15:53:00 EDT, Route to Pharmacy Electronically, [facility]/pharmacy #[id number], Partial fill upon patient request if the prescription is for a schedule II... Start Date: 12/11/20 Status: Ordered loratadine 10 mg oral tablet 10 mg, 1, tablet, By Mouth, Daily, # 90 tablet, Refills 0, Tot. Refills 0, Maintenance, 11/28/20 9:28:00 EDT, [id number] 160.5, cm, 11/26/20 11:39:00 EDT, Height, 55.6, kg, 03/15/19 15:53:00 EDT, Dry Weight Start Date: 11/28/20 Status: Ordered losartan 25 mg oral tablet 25 mg, 1, tablet, By Mouth, Daily, # 90 tablet, Refills 0, Tot. Refills 0, Maintenance, 11/29/20 14:27:00 EDT, [id number], Appointment, 160.5, cm, 11/26/20 11:39:00 [...] 90 capsule, 0 Refills, Maintenance, 11/29/20 14:28:00 EDT,[facility]/pharmacy #[id number], 160.5, cm, 11/26/20 11:39:00 EDT, [...]
--- OUTSIDE RECORDS SUMMARY | 2023-02-05 11:19 | XMS_ITS | Continuity of Care Document ---
Author Name Unknown Organization [facility] Address [address] [place] [address]- Care Team Providers Care Sander Hand Name Role Phone Mary SHAY, Bridgette Archibald Primary Care Physic payal Encounter [facility] Date(s): 01/20/21 - 02/19/21 [facility] [address] [facility] [address] [place] [address]- Attending Physician: Rubens Pinto Admitting Physician: Rubens [...] [facility]: 69125-727-69 2Result Comment: [facility] 31823-832-27 3Result Comment: [05/02/2018] [facility] # 40830-159-50 4Result Comment: [05/31/2017] [facility] 88154-529-14 5Result Comment: [03/16/2014] Dr. Duffy 6Result Comment: [07/01/2015] diluent [id number] 08/24/17 Merck 7Admin Note: rcvd elsewhere Medications Advair Diskus 250 mcg-50 mcg inhalation powder 1, puffs, Inhalation, 2 times a day, # 180 each, Refills 1, Tot. Refills 1, Maintenance, 10/03/20 12:43:00 EDT, Route to Pharmacy Electronically, [id number], [facility]/pharmacy #[id number], 160.5, cm, 04/19/20 11:16:00 EDT, Height, 55.6,... Start Date: 10/03/20 Stop Date: 04/01/21 Status: Ordered albuterol 0.083% inhalation solution 3 mL = 2.5 mg, Inhalation, Every 6 hours, DX: J45.909, # 60 each, 0 Refills, Maintenance, 08/25/19 10:27:00 EST, Solution, [facility]/pharmacy #[id number], 160.5, cm, 07/19/19 13:59:00 EST, [...] 0 Refills, Maintenance, 12/27/20 14:45:00 EDT, Tablet, [facility]/pharmacy #[id number], Partial fill upon patient request if the prescription is for a schedule II opioid drug., 160, cm, 12/27/20 13:23:00 EDT, Height,... Start Date: 12/27/20 Status: Ordered citalopram 20 mg oral tablet 20 mg, 1, tablet, By Mouth, Daily, # 90 tablet, Refills 1, Tot. Refills 1, Maintenance, 09/30/20 11:37:00 EDT, Route to Pharmacy Electronically, [facility]/pharmacy #7111, 160.5, cm, 04/19/20 11:16:00 EDT, [...] 12/11/20 15:53:00 EDT, Route to Pharmacy Electronically, [facility]/pharmacy #[id number], Partial fill upon patient request if the prescription is for a schedule II... Start Date: 12/11/20 Status: Ordered Flonase 50 mcg/inh nasal spray 1 sprays, Nares, Both, 2 times a day, # 1 each, 6 Refills, Maintenance, 01/20/21 14:20:00 EDT, [place], [facility]/pharmacy [facility], Partial fill upon patient request [...] 11/29/20 14:27:00 EDT, [id number], 160.5, cm, 11/26/20 11:39:00 EDT, [...] infiltrating ductal carcinoma, T2 N0, ER positive, [place]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
--- OUTSIDE RECORDS SUMMARY | 2023-02-05 11:19 | XMS_ITS | Continuity of Care Document ---
Author Name Unknown Organization [facility] Address [address] [place] [address]- Care Team Providers Care Walking Dragline Operator Name Role Phone Mary SHAY, Bridgette Archibald Primary Care Physic payal En[place] [facility] Date(s): 10/12/22 - 11/11/22 [facility] [address] [place] [address]- Allergies, Adverse Reactions, Alerts Substance Reaction Severity Status Augmentin nausea Active Immunizations Given and Recorded Vaccine Date Status Refusal Reason [id number] 12y+ bivalent booster vax 1 04/09/22 Given [...] Vaccine (oldterm) 06/21/01 Given 1Result Comment: [facility]: [id number] 2Result Comment: [facility]: 06016-320-79 3Result Comment: [facility]: 86772-890-70 4Result Comment: [facility]: 27453-972-38 5Result Comment: [facility] 16883-541-87 6Result Comment: [05/02/2018] [facility] # 99515-142-14 7Result Comment: [05/31/2017] [facility] [id number] 8Result Comment: [03/16/2014] Dr. Duffy 9Result Comment: [facility]: 68057-670-89 10Result Comment: [07/01/2015] diluent [id number] 08/24/17 Merck 11Admin Note: rcvd elsewhere Medications [...] Gm, 1 Refills, Maintenance, 10/16/22 10:07:00 EDT, [facility]/pharmacy #[id number], Partial fill upon patient request [...] Nurse Name: Mary SHAY, Bridgette Archibald Position: [facility] Physician - Primary Care Member Role: PCP Address: Address: [address] [place] [address] Name: Paris De Jesus LPN Position: S RN Member Role: Primary Care Nurse Name: Keya Rollins RN Position: S RN Member Role: Primary Care Nurse Name: Lisa Leone RN Position: S RN Member Role: Primary Care Nurse Care Team Related Persons Name: AMY PENDLETON Address: [address] [place] [address] Name: ILDA DOWLING Address: [address] [place] [address]
--- OUTSIDE RECORDS SUMMARY | 2023-02-05 11:19 | XMS_ITS | Continuity of Care Document ---
Author Name Unknown Organization [facility] Address [address] [place] [address]- Care Team Providers Care Spiritual Care Coordinator Name Role Phone Mary SHAY, Bridgette Archibald Primary Care Physic payal Encounter [facility] Date(s): 10/19/22 - 11/18/22 [facility] [address] [place] [address]- Allergies, Adverse Reactions, Alerts Substance Reaction Severity Status Augmentin nausea Active Immunizations Given and Recorded Vaccine Date Status Refusal Reason [id number] 12y+ bivalent booster vax 1 04/09/22 Given [...] Given 1Result Comment: [facility]: [address]-2 2Result Comment: [facility]: 84055-499-49 3Result Comment: [facility]: 12900-197-34 4Result Comment: [facility]: 92231-408-00 5Result Comment: [facility] [id number] 6Result Comment: [05/02/2018] [facility] # [id number] 7Result Comment: [05/31/2017] [facility] [id number] 8Result Comment: [03/16/2014] Dr. Duffy 9Result Comment: [facility]: [id number] 10Result Comment: [07/01/2015] diluent [id number] 08/24/17 Merck 11Admin Note: rcvd elsewhere Medications [...] Gm, 1 Refills, Maintenance, 10/16/22 10:07:00 EDT, [facility]/pharmacy #[id number], Partial fill [...] 11/17/22 8:17:00 EDT, Route to Pharmacy Electronically, [facility], 165, cm, 10/26/22 16:15:00 EDT, Height, 58.7, [...] Condition Confirmation Course Effective Dates Status H ealt Status Informant Adenomatous polyp of colon Confirmed [...] Nurse Name: Mary SHAY, Bridgette Archibald Position: [facility] Physician - Primary Care Member Role: PCP Address: Address: [address] [place] [address] Name: Paris De Jesus LPN Position: [facility] RN Member Role: Primary Care Nurse Name: Keya Rollins RN Position: S RN Member Role: Primary Care Nurse Name: Lisa Leone RN Position: [facility] RN Member Role: Primary Care Nurse Care Team Related Persons Name: AMY PENDLETON Address: [address] [place] [address] Name: ILDA DOWLING Address: [address] [place] [address]
--- OUTSIDE RECORDS SUMMARY | 2023-02-05 11:19 | XMS_ITS | Continuity of Care Document ---
Author Name Unknown Organization [facility] Address [address] [place] [address]- Care Team Providers Care Park Guide Name Role Phone Mary SHAY, Bridgette Archibald Primary Care Physic payal Encounter [facility] Date(s): 07/08/21 - 08/07/21 [facility] [address] [place] [address]- Allergies, Adverse Reactions, Alerts Substance Reaction Severity [...] Given 1Result Comment: [facility]: [id number] 2Result Comment: [facility]: 71324-378-27 3Result Comment: [facility]: 38355-753-19 4Result Comment: [facility] [id number] 5Result Comment: [05/02/2018] [facility] # [id number] 6Result Comment: [05/31/2017] [facility] [id number] 7Result Comment: [03/16/2014] Dr. Duffy 8Result Comment: [07/01/2015] diluent [id number] 08/24/17 Merck 9Admin Note: rcvd elsewhere Medications [...] 03/26/21 14:13:00 EDT, Route to Pharmacy Electronically, [facility]/pharmacy #[id number], 160, cm, 01/20/21 14:22:00 EDT, Height, [...] 07/31/21 9:32:00 EST, Route to Pharmacy Electronically, [facility]/pharmacy #[id number], Partial fill upon patient request if the prescription is for a schedule II o... Start Date: 07/31/21 Status: Ordered loratadine 10 mg oral tablet 10 mg, 1, tablet, By Mouth, Daily, # 90 tablet, Refills 0, Tot. Refills 0, Maintenance, 11/28/20 9:28:00 EDT, Route to Pharmacy Electronically, [facility]/pharmacy #[id number], 160.5, cm, 11/26/20 11:39:00 EDT, Height, 55.6, kg, 03/15/19 15:53:00 EDT, Dry Weight Start Date: 11/28/20 Status: Ordered losartan 25 mg oral tablet 25 mg, 1, tablet, By Mouth, Daily, # 90 tablet, Refills 1, Tot. Refills 1, Maintenance, 03/26/21 13:41:00 EDT, Route to Pharmacy Electronically, [facility]/pharmacy #7111, Appointment, 160, cm, 01/20/21 14:22:00 EDT, [...] Dry Weight Start Date: 07/08/21 Status: Ordered Singulair 10 mg oral tablet 10 mg, 1, tablet, By Mouth, Daily in PM, j45.40, # 30 tablet, Refills 0, Tot. Refills 0, Maintenance, 07/09/21 9:38:00 EST, Route to Pharmacy Electronically, [facility]/pharmacy #[id number], Partial fill upon patient request if the prescription is for a schedule I... Start Date: 07/09/21 Status: Ordered Spiriva HandiHaler 18 mcg inhalation [...] T2 N0, ER positive, [place]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 2013(Confirmed) 10/02/13 Active Osteoporosis(Confirmed) [...]
--- OUTSIDE RECORDS SUMMARY | 2023-02-05 11:19 | XMS_ITS | Continuity of Care Document ---
Author Name Unknown Organization [facility] Address [address] [place] [address]- Care Team Providers Care Seo Specialist Name Role Phone Mary SHAY, Bridgette Archibald Primary Care Physic payal Encounter [facility] Date(s): 10/16/20 - 11/15/20 [facility] [address] [place] [address]- Allergies, Adverse Reactions, Alerts Substance Reaction Severity [...] Given 1Result Comment: [facility]: 13140-718-09 2Result Comment: [facility] [id number] 3Result Comment: [05/02/2018] [facility] # [id number] 4Result Comment: [05/31/2017] [facility] [id number] 5Result Comment: [03/16/2014] Dr. Duffy 6Result Comment: [07/01/2015] diluent [id number] 08/24/17 Merck 7Admin Note: rcvd elsewhere Medications Advair Diskus 250 mcg-50 mcg inhalation powder 1, puffs, Inhalation, 2 times a day, # 180 each, Refills 1, Tot. Refills 1, Maintenance, 10/03/20 12:43:00 EDT, Route to Pharmacy Electronically, [id number], [facility]/pharmacy #[id number], 160.5, cm, 04/19/20 11:16:00 EDT, Height, 55.6,... Start Date: 10/03/20 Stop Date: 04/01/21 Status: Ordered albuterol 0.083% inhalation solution 3 mL = 2.5 mg, Inhalation, Every 6 hours, DX: J45.909, # 60 each, 0 Refills, Maintenance, 08/25/19 10:27:00 EST, Solution, [facility]/pharmacy #[id number], 160.5, cm, 07/19/19 13:59:00 EST, Height, 55.6, kg, 03/15/19 15:53:00 EDT, Dry Weight Start Date: 08/25/19 Status: Ordered barium sulfate 2% oral suspension See Instructions, dispense two 450 mg bottles. Drink one 450 ml bottle at 8am, and one 450 mL bottle 90 minutes prior to procedure., # 900 mL, 0 Refills, Maintenance, 06/05/19 15:49:07 EST, [facility]/pharmacy #[id number], dispense two 450 mg bottles. ; Drink on... Start Date: 06/05/19 Status: Ordered Breo Ellipta 100 mcg-25 mcg/inh inhalation powder 1 puffs, Inhalation, Daily, # 30 each, 5 Refills, Maintenance, 06/04/20 9:31:00 EST, Powder, [facility]/pharmacy #[id number], Substitute for Advair RX, 1 puffs Inhalation Daily, 160.5, cm, 04/19/20 11:16:00 EDT, Height, 55.6, kg, 03/15/19 15:53:00 EDT, Dry Weight Start Date: 06/04/20 Status: Ordered citalopram 20 mg oral tablet 20 mg, 1, tablet, By Mouth, Daily, # 90 tablet, Refills 1, Tot. Refills 1, Maintenance, 09/30/20 11:37:00 EDT, Route to Pharmacy Electronically, [facility]/pharmacy #[id number], 160.5, cm, 04/19/20 11:16:00 EDT, [...] 04/19/20 12:01:00 EDT, [id number] 160.5, cm, 04/19/20 11:16:00 EDT, Height, 55.6, kg, 03/15/19 15:53:00 EDT, Dry Weight Start Date: 04/19/20 Status: Ordered losartan 25 mg oral tablet 25 mg, 1, tablet, By Mouth, Daily, # 90 tablet, Refills 3, Tot. Refills 3, Maintenance, 12/20/19 15:58:00 EDT, Route to Pharmacy Electronically, [facility] ([place]), 160.5, cm, 12/12/19 13:19:00 EDT, Height, 55.6, [...] 90 capsule, 1 Refills, Maintenance, 03/01/20 11:31:00 EDT,[facility]/pharmacy #[id number], 160.5, cm, 12/12/19 13:19:00 [...] infiltrating ductal carcinoma, T2 N0, ER positive, [place]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
--- OUTSIDE RECORDS SUMMARY | 2023-02-05 11:19 | XMS_ITS | Continuity of Care Document ---
Author Name Unknown Organization [facility] Address [address] [place] [address]- Care Team Providers Care Skiver Operator Name Role Phone Mary SHAY, Bridgette Archibald Primary Care Physic payal Encounter [facility] Date(s): 12/11/20 - 12/18/20 [facility] [address] [place] [address]- Encounter Diagnosis Cancer of lower-outer quadrant of female breast, Left, infiltrating ductal carcinoma, 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 2013(Discharge Diagnosis) - 12/11/20 Hiatal hernia with gastroesophageal reflux(Discharge Diagnosis) - 12/11/20 Atrial fibrillation and flutter(Discharge Diagnosis) - 12/11/20 Cough(Discharge Diagnosis) - 12/11/20 Bilateral leg pain(Discharge Diagnosis) - 12/11/20 Anxiety(Discharge Diagnosis) - 12/11/20 Allergic rhinitis(Discharge Diagnosis) - 12/11/20 Mild persistent asthma without complication(Discharge Diagnosis) - 12/11/20 Osteoporosis(Discharge Diagnosis) - 12/11/20 Attending Physician: Mary SHAY, Bridgette Archibald Allergies, [...] Toxoid Vaccine (oldterm) 06/21/01 Given 1Result Comment: [facility]: [id number] 2Result Comment: [facility] [id number] 3Result Comment: [05/02/2018] [facility] # [id number] 4Result Comment: [05/31/2017] [facility] [id number] 5Result Comment: [03/16/2014] Dr. Duffy 6Result Comment: [07/01/2015] diluent [id number] 08/24/17 Merck 7Admin Note: rcvd elsewhere Medications Advair Diskus 250 mcg-50 mcg inhalation powder 1, puffs, Inhalation, 2 times a day, # 180 each, Refills 1, Tot. Refills 1, Maintenance, 10/03/20 12:43:00 EDT, Route to Pharmacy Electronically, [id number], [facility]/pharmacy #[id number], 160.5, cm, 04/19/20 11:16:00 EDT, Height, 55.6,... Start Date: 10/03/20 Stop Date: 04/01/21 Status: Ordered albuterol 0.083% inhalation solution 3 mL = 2.5 mg, Inhalation, Every 6 hours, DX: J45.909, # 60 each, 0 Refills, Maintenance, 08/25/19 10:27:00 EST, Solution, [facility]/pharmacy #[id number], 160.5, cm, 07/19/19 13:59:00 EST, Height, 55.6, kg, 03/15/19 15:53:00 EDT, Dry Weight Start Date: 08/25/19 Status: Ordered citalopram 20 mg oral tablet 20 mg, 1, tablet, By Mouth, Daily, # 90 tablet, Refills 1, Tot. Refills 1, Maintenance, 09/30/20 11:37:00 EDT, Route to Pharmacy Electronically, [facility]/pharmacy #[id number], 160.5, cm, 04/19/20 11:16:00 EDT, [...] 12/11/20 15:53:00 EDT, Route to Pharmacy Electronically, [facility]/pharmacy #[id number], Partial fill upon patient request if the prescription is for a schedule II... Start Date: 12/11/20 Status: Ordered loratadine 10 mg oral tablet 10 mg, 1, tablet, By Mouth, Daily, # 90 tablet, Refills 0, Tot. Refills 0, Maintenance, 11/28/20 9:28:00 EDT, Route to Pharmacy Electronically, [facility]/pharmacy #[id number], 160.5, cm, 11/26/20 11:39:00 EDT, Height, 55.6, kg, 03/15/19 15:53:00 EDT, Dry Weight Start Date: 11/28/20 Status: Ordered losartan 25 mg oral tablet 25 mg, 1, tablet, By Mouth, Daily, # 90 tablet, Refills 0, Tot. Refills 0, Maintenance, 11/29/20 14:27:00 EDT, Route to Pharmacy Electronically, [facility]/pharmacy #[id number], Appointment, 160.5, cm, 11/26/20 11:39:00 EDT, [...] 90 capsule, 0 Refills, Maintenance, 11/29/20 14:28:00 EDT,[facility]/pharmacy #[id number], 160.5, cm, 11/26/20 11:39:00 EDT, [...] N0, ER positive, HI negative, 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 Diagnosis Diagnosis Type Effective Dates Health Status Clinical Service Informant Atrial fibrillation and flutter Discharge Diagnosis 12/11/20 Allergic rhinitis Discharge Diagnosis 12/11/20 Mild persistent asthma without complication Discharge Diagnosis 12/11/20 Cancer of lower-outer quadrant of female breast, Left, infiltrating ductal carcinoma, 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 2013 Discharge Diagnosis 12/11/20 Anxiety Discharge Diagnosis 12/11/20 Osteoporosis Discharge Diagnosis 12/11/20 Hiatal hernia with gastroesophageal reflux Discharge Diagnosis 12/11/20 Cough Discharge Diagnosis 12/11/20 Bilateral leg pain Discharge Diagnosis 12/11/20 Vital Signs Most recent to oldest [Reference Range]: 1 Height 160.0 cm (12/11/20 3:02 PM) Weight 62.1 kg (12/11/20 3:02 PM) Pulse Rate [55-90 bpm] 120 bpm *H* (12/11/20 3:02 PM) Body Mass Index [18.5-24.99] 24.26 (12/11/20 3:02 PM) Blood Pressure [90-138/55-84 mm Hg] 110/ 80mm Hg (12/11/20 3:02 PM) Blood pressure sites Arm, left (12/11/20 3:02 PM) Weight Obtained Via Standing scale (12/11/20 3:02 PM) Social History Social History Type Response Smoking Status Former smoker; Tobac co user in household: No; Other: Quit 30 years ago; Started at 16 YO 1/2 pack daily; entered on: 05/31/17 Sex
--- OUTSIDE RECORDS SUMMARY | 2023-02-05 11:19 | XMS_ITS | Continuity of Care Document ---
Author Name Unknown Organization [facility] Address [address] [place] [address]- Care Team Providers Care Keyboard Action Assembler Name Role Phone Mary SHAY, Bridgette Archibald Primary Care Physic payal Encounter [facility] [place] [place] Date(s): 02/13/22 - 02/20/22 [facility] [address] [place] [address]- Encounter Diagnosis Atrial fibrillation and flutter(Discharge Diagnosis) - 02/13/22 Osteoporosis(Discharge Diagnosis) - 02/13/22 Anxiety(Discharge Diagnosis) - 02/13/22 Asthma(Discharge Diagnosis) - 02/13/22 Cancer of lower-outer quadrant of female breast, Left, infiltrating ductal carcinoma, T2 N0, ER positive, [place]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 2014(Discharge Diagnosis) - 02/13/22 LUQ abdominal pain(Discharge Diagnosis) - 02/13/22 Localized osteoarthritis of knee(Discharge Diagnosis) - 02/13/22 Attending Physician: Mary SHAY, Bridgette Archibald Allergies, [...] (oldterm) 06/21/01 Given 1Result Comment: [facility]: [id number] 2Result Comment: [facility]: [id number] 3Result Comment: [facility]: 76651-248-28 4Result Comment: [facility] 48851-498-58 5Result Comment: [05/02/2018] [facility] # [id number] 6Result Comment: [05/31/2017] [facility] [id number] 7Result Comment: [03/16/2014] Dr. Duffy 8Result Comment: [07/01/2015] diluent [id number] 08/24/17 Merck 9Admin Note: rcvd elsewhere Medications Advair Diskus 500 mcg-50 mcg inhalation powder 1, inhalation, Inhalation, 2 times a day, rinse mouth and throat after use j45.40, # 1 each, Refills 6, Tot. Refills 6, Maintenance, 01/19/22 12:24:00 EDT, Powder, Route to Pharmacy Electronically, [id number], [facility]/pharmacy #7... Start Date: 01/19/22 Status: [...] 1 Refills, Maintenance, 04/22/21 15:35:00 EDT, Tablet, [facility]/pharmacy #[id number], Partial fill upon patient request if the prescription is for a schedule II opioid drug., 160, cm, 01/20/21 14:22:00 EDT, Height,... Start Date: 04/22/21 Status: Ordered citalopram 20 mg oral tablet 20 mg, 1, tablet, By Mouth, Daily, # 90 tablet, Refills 1, Tot. Refills 1, Maintenance, 10/13/21 12:28:00 EDT, Route to Pharmacy Electronically, [facility]/pharmacy #[id number], 160, cm, 08/19/21 15:40:00 [...] capsule, 0 Refills, Maintenance, 11/19/21 16:31:00 EDT, [facility]/pharmacy #[id number], Partial fill upon patient request if the prescription is for a schedule II opioiddrug., 160, cm, 03/01/22 15:40:00 EST, Height, 63,... Start Date: 11/19/21 [...] 07/31/21 9:32:00 EST, Route to Pharmacy Electronically, [facility]/pharmacy #[id number], Partial fill upon patient request if the prescription is for a schedule II o... Start Date: 07/31/21 Status: Ordered Flonase 50 mcg/inh nasal spray 2 sprays, Nares, Both, Daily in AM, # 16 Gm, 6 Refills, Maintenance, 05/16/21 10:11:00 EST, [place], [facility]/pharmacy #[id number], Partial fill upon patient request if the prescription is for a schedule II opioid drug., 2 sprays Nares, Both Daily in AM, 160, cm,... Start Date: 05/16/21 Status: Ordered loratadine 10 mg oral tablet 10 mg, 1, tablet, By Mouth, Daily, # 90 tablet, Refills 0, Tot. Refills 0, Maintenance, 11/27/21 9:50:00 EDT, Route to Pharmacy Electronically, [facility]/pharmacy #[id number], 160, cm, 08/19/21 15:40:00 EST, Height, 63, kg, 12/12/20 13:26:00 EDT, Dry Weight Start Date: 11/27/21 Status: Ordered losartan 25 mg oral tablet 25 mg, 1, tablet, By Mouth, Daily, # 90 tablet, Refills 0, Tot. Refills 0, Maintenance, 01/26/22 17:51:00 EDT, Route to Pharmacy Electronically, [facility]/pharmacy #[id number], Appointment, 166, cm, 12/18/21 13:30:00 EDT, [...] tablet, Refills 11, Route to Pharmacy Electronically, [id number], 160, cm, 08/19/21 15:40:00 EST, Height, 63, [...] 90 capsule, 1 Refills, Maintenance, 10/23/21 14:10:00 EDT,[facility]/pharmacy #[id number], 160, cm, 08/19/21 15:40:00 [...] infiltrating ductal carcinoma, T2 N0, ER positive, [place]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 2013 Discharge Diagnosis 02/13/22 LUQ abdominal pain Discharge Diagnosis 02/13/22 Localized osteoarthritis of knee Discharge Diagnosis 02/13/22 Vital Signs Most recent to oldest [Reference Range]: 1 Height 166 cm (02/13/22 3:01 PM) Weight 60.9 kg (02/13/22 3:01 PM) Oxygen Saturation [94-100 %] 98 % (02/13/22 3:01 PM) Pulse Rate [55-90 bpm] 64 bpm (02/13/22 3:01 PM) Body Mass Index [18.5-24.99] 22.1 (02/13/22 3:01 PM) Blood Pressure [90-138/55-84 mm Hg] 112/ 62mm Hg (02/13/22 3:01 PM) Mode of Delivery (Oxygen) Room air (02/13/22 3:01 PM) Blood pressure sites Arm, right (02/13/22 3:01 PM) Social History Social History Type Response Smoking Status Former smoker; Tobac co user in household: No; Other: Quit 30 years ago; Started at 16 YO 1/2 pack daily; entered on: 05/31/17 Sex Care Team Personnel Name: Mary SHAY, Bridgette Archibald Address: [address] [place] [id number]
--- OUTSIDE RECORDS SUMMARY | 2023-02-05 11:19 | XMS_ITS | Continuity of Care Document ---
Author Name Unknown Organization [facility] Address [address] [facility] [place] [address]- Care Team Providers Care Mill Tender Washing Name Role Phone Mary SHAY, Bridgette Archibald Primary Care Physic payal [place] [facility] [place]22 [facility] [address] [place] [address]- Allergies, Adverse Reactions, Alerts Substance Reaction Severity Status Augmentin nausea Active Immunizations Given and Recorded Vaccine Date Status Refusal Reason [id number] 12y+ bivalent booster vax 1 04/09/22 Given [...] Vaccine (oldterm) 06/21/01 Given 1Result Comment: [facility]: [id number] 2Result Comment: [facility]: [id number] 3Result Comment: [facility]: [id number] 4Result Comment: [facility]: 60657-014-19 5Result Comment: [facility] [id number] 6Result Comment: [05/02/2018] [facility] # [id number] 7Result Comment: [05/31/2017] [facility] [phone] 8Result Comment: [03/16/2014] Dr. Duffy 9Result Comment: [facility]: [id number] 10Result Comment: [07/01/2015] diluent [id number] 08/24/17 Merck 11Admin Note: rcvd elsewhere Medications [...] Gm, 1 Refills, Maintenance, 10/16/22 10:07:00 EDT, [facility]/pharmacy #[id number], Partial fill upon patient request if [...] Team Personnel Name: Luis Bojorquez RN Position: [facility] RN Member Role: Primary Care Nurse Name: Mary SHAY, Bridgette Archibald Position: [facility] Primary Care Physician Member Role: PCP Address: Address: [address] [place] [address] Name: Paris De Jesus LPN Position: [facility] RN Member Role: Primary Care Nurse Name: Keya Rollins RN Position: S RN Member Role: Primary Care Nurse Name: Lisa Leone RN Position: [facility] RN Member Role: Primary Care Nurse Care Team Related Persons Name: AMY PENDLETON Address: [address] [place] [address] Name: ILDA DOWLING Address: [address] [place] [address]
--- OUTSIDE RECORDS SUMMARY | 2023-02-05 11:19 | XMS_ITS | Continuity of Care Document ---
Author Name Unknown Organization [facility] Address [address] [place] [address]- Care Team Providers Care Manager Pulmonary Name Role Phone Mary SHAY, Bridgette Archibald Primary Care Physic payal Encounter [facility] Date(s): 09/07/19 - 09/14/19 [facility] [address] [place] [address]- [facility] Attending Physician: Mary SHAY, Bridgette Archibald Allergies, [...] Given 1Result Comment: [facility] [id number] 2Result Comment: [05/02/2018] [facility] # [id number] 3Result Comment: [05/31/2017] [facility] [id number] 4Result Comment: [03/16/2014] Dr. Duffy 5Result Comment: [07/01/2015] diluent [id number] 08/24/17 Merck 6Admin Note: rcvd elsewhere Medications albuterol 0.083% inhalation solution 3 mL = 2.5 mg, Inhalation, Every 6 hours, DX: J45.909, # 60 each, 0 Refills, Maintenance, 08/25/19 10:27:00 EST, Solution, [facility]/pharmacy #[id number], 160.5, cm, 07/19/19 13:59:00 EST, Height, 55.6, kg, 03/15/19 15:53:00 EDT, Dry Weight Start Date: 08/25/19 Status: Ordered amiodarone 200 mg oral tablet 200 mg, 1, tablet, By Mouth, Daily, Prescribed by Dr. Car (Cardiology), # 90 tablet, Refills 0,Tot. Refills 0, Maintenance, 03/24/19 17:32:08 EDT, Route to Pharmacy Electronically, [id number], [facility] Start Date: 03/24/19 Stop Date: 06/24/20 Status: Ordered Azithromycin 5 Day Dose Pack 250 mg oral tablet 1 pack/packet, By Mouth, Once, # 6 tablet, 0 Refills, Soft Stop, 08/23/19 16:55:00 EST, Tablet, [facility]/pharmacy #[id number], 160.5, cm, 07/19/19 13:59:00 EST, [...] Daily, # 30 each, 1 Refills, Maintenance, 08/23/19 16:52:00 EST, Powder, [facility]/pharmacy #[id number], Substitute for Advair RX, 1 puffs Inhalation Daily, 160.5, cm, 07/19/19 13:59:00 EST,Height, 55.6, kg, 03/15/19 15:53:00 EDT, Dry Weight Start Date: 08/23/19 Status: Ordered citalopram 20 mg oral tablet 20 mg, 1, tablet, By Mouth, Daily, # 90 tablet, Refills 1, Tot. Refills 1, Maintenance, 09/14/19 10:00:00 EDT, Route to Pharmacy Electronically, [facility] ([place]), 160.5, cm, 07/19/19 13:59:00 EST, Height, 55.6, [...] 07/13/18 16:42:32 EST, Route to Pharmacy Electronically, [id number], [facility] Start Date: 07/13/18 Stop Date: 07/08/19 [...] Refills, Maintenance, 07/19/19 14:49:00 EST,[facility] ([place]), 160.5, cm, 07/19/19 13:59:00 EST, Height, 55.6, kg, 03/15/19 15:53:00 EDT, Dry Weight Start Date: 07/19/19 Status: Ordered Vitamin D3 = 1,000 International_Units, By Mouth, 0 Refills, Maintenance, 11/22/15 14:34:08 Start Date: 11/22/15 Status: Ordered Voltaren 1% topical gel 1 application, Topically, 4 times a day, # 100 Gm, 0 Refills, Maintenance, 07/13/19 17:07:00 EST, Gel, [facility]/pharmacy #[id number], 1 application Topically 4 times a day, 160.5, cm, 07/13/19 13:23:00 EST, Height, 55.6, kg, 03/15/19 15:53:00 EDT, Dry Weight Start Date: 07/13/19 Status: Ordered Xarelto 20 mg oral tablet See Instructions, 1 tablet by oral route every day with the evening meal, # 30 tablet, 0 Refills, Maintenance, 08/16/19 12:21:00 EST, Tablet, [facility]/pharmacy #[id number], 160.5, cm, 07/19/19 13:59:00 EST, Height, 55.6, kg, 03/15/19 15:53:00 EDT, Dry Weight Start Date: 08/16/19 Status: Ordered Xarelto 20 mg oral tablet See Instructions, 1 tablet by oral route every day with the evening meal, # 90 tablet, 0 Refills, Maintenance, 08/15/19 10:02:00 EST, Tablet, [facility] ([place]), 160.5, cm, 07/19/19 13:59:00 EST, Height, 55.6, kg, 03/15/19 15:53:00 EDT, Dry We... 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
--- OUTSIDE RECORDS SUMMARY | 2023-02-05 11:19 | XMS_ITS | Continuity of Care Document ---
Author Name Unknown Organization [facility] Address [address] [place] [address]- Care Team Providers Care Buffing And Sueding Machine Operator Name Role Phone Mary SHAY, Brdigette Archibald Primary Care Physic payal Encounter [facility] [place] Date(s): 08/28/22 - 09/27/22 [facility] [address] [place] [address]- Allergies, Adverse Reactions, Alerts Substance Reaction Severity Status Augmentin nausea Active Immunizations Given and Recorded Vaccine Date Status Refusal Reason [id number] 12y+ bivalent booster vax 1 04/09/22 Given [...] Toxoid Vaccine (oldterm) 06/21/01 Given 1Result Comment: [facility]: [id number] 2Result Comment: [facility]: [id number] 3Result Comment: [facility]: [phone] 4Result Comment: [facility]: [id number] 5Result Comment: [facility] [id number] 6Result Comment: [05/02/2018] [facility] # [phone] 7Result Comment: [05/31/2017] [facility] [phone] 8Result Comment: [03/16/2014] Dr. Duffy 9Result Comment: [facility]: [id number] 10Result Comment: [07/01/2015] diluent [id number] 08/24/17 Merck 11Admin Note: rcvd elsewhere Medications Advair Diskus 500 mcg-50 mcg inhalation powder 1, inhalation, Inhalation, 2 times a day, rinse mouth and throat after use j45.40, # 1 each, Refills 6, Tot. Refills 6, Maintenance, 01/19/22 12:24:00 EDT, Powder, Route to Pharmacy Electronically, [id number], [facility]/pharmacy #7... Start Date: 01/19/22 Status: Ordered albuterol 0.083% inhalation solution 3 mL = 2.5 mg, Inhalation, Every 6 hours, DX: J45.909, # 60 each, 0 Refills, Maintenance, 08/25/19 10:27:00 EST, Solution, [facility]/pharmacy #[id number], 160.5, cm, 07/19/19 13:59:00 EST, Height, 55.6, kg, 03/15/19 15:53:00 EDT, Dry Weight Start Date: 08/25/19 Status: Ordered cetirizine 10 mg oral tablet 1 tablet = 10 mg, By Mouth, Daily, # 30 tablet, 1 Refills, Maintenance, 04/22/21 15:35:00 EDT, [id number] Partial fill upon patient request if the prescription is for a schedule II opioid drug., 160, cm, 01/20/21 14:22:00 EDT, Height,... Start Date: 04/22/21 Status: Ordered citalopram 20 mg oral tablet 20 mg, 1, tablet, By Mouth, Daily, # 90 tablet, Refills 1, Tot. Refills 1, Maintenance, 04/30/22 17:34:00 EST, Route to Pharmacy Electronically, [facility]/pharmacy #[id number], 166, cm, 02/13/22 15:01:00 EDT, [...] capsule, 0 Refills, Maintenance, 11/19/21 16:31:00 EDT, [facility]/pharmacy #[id number], Partial fill upon patient [...] 07/31/21 9:32:00 EST, [id number] Partial fill upon patient request if the prescription is for a schedule II o... Start Date: 07/31/21 Status: Ordered Flonase 50 mcg/inh nasal spray 2 sprays, Nares, Both, Daily in AM, # 16 Gm, 6 Refills, Maintenance, 05/16/21 10:11:00 EST, [place], [facility]/pharmacy #[id number], Partial fill upon patient request if the prescription is for a schedule II opioid drug., 2 sprays Nares, Both Daily in AM, 160, cm,... Start Date: 05/16/21 Status: Ordered gabapentin 100 mg oral capsule 1, capsule, By Mouth, 3 times a day, # 90 capsule, Refills 0, Maintenance, 09/10/22 9:14:00 EDT, Route to Pharmacy Electronically, [facility] STORE [id number], 166, cm, 08/31/22 11:19:00 EDT, Height, 63, kg, 12/12/20 13:26:00 EDT, Dry Weight Start Date: 09/10/22 Stop Date: 10/10/22 Status: Ordered loratadine 10 mg oral tablet 10 mg, 1, tablet, By Mouth, Daily, # 90 tablet, Refills 0, Tot. Refills 0, Maintenance, 11/27/21 9:50:00 EDT, [id number], 160, cm, 08/19/21 15:40:00 EST, Height, 63, kg, 12/12/20 13:26:00 EDT, Dry Weight Start Date: 11/27/21 Status: Ordered losartan 25 mg oral tablet 25 mg, 1, tablet, By Mouth, Daily, # 90 tablet, Refills 1, Tot. Refills 1, Maintenance, 04/10/22 9:35:00 EDT, Route to Pharmacy Electronically, [facility]/pharmacy #[id number], Appointment, 166, cm, 02/13/22 15:01:00 [...] tablet, Refills 11, Route to Pharmacy Electronically, [facility] [id number], 160, cm, 08/19/21 15:40:00 EST, Height, 63, [...] capsule, 1 Refills, Maintenance, 05/25/22 9:54:00 EST, [facility]/pharmacy #[id number], 166, cm, 02/13/22 15:01:00 EDT, [...] 10/2013 Active Trigger middle finger Confirmed Active Abnormal urine color Confirmed Active Wrist injury Confirmed Active 1Dermatologist is [place] 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, 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, ER positive, [place] negative, 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 Social History Social History Type Response Smoking Status Former smoker; Tobac co user in household: No; Other: Quit 30 years ago; Started at 16 YO 1/2 pack daily; entered on: 05/31/17 Sex Patient Care team information Care Team Personnel Name: Mary SHAY, Bridgette Archibald Position: [facility] Primary Care Physician Member Role: PCP Address: Address: [address] [place] [id number] Care Team Related Persons Name: AMY PENDLETON Address: [address] [place] [address] Name: ILDA DOWLING Address: [address] [place] [address]
--- OUTSIDE RECORDS SUMMARY | 2023-02-05 11:19 | XMS_ITS | Continuity of Care Document ---
Author Name Unknown Organization [facility] Address [address] [place] [address] [address] [place] [address]- Care Team Providers Care Chief Investigator Name Role Phone Mary SHAY, Bridgette Archibald Primary Care Physic payal Encounter [facility] [place] Date(s): 09/29/22 - 10/06/22 [facility] [address] [place] [address]- Attending Physician: Bobo Elam MD Referring Physician: Mary SHAY, Bridgette Archibald Allergies, Adverse Reactions, Alerts Substance Reaction Severity Status Augmentin nausea Active Immunizations Given and Recorded Vaccine Date Status Refusal Reason [id number] 12y+ bivalent booster vax 1 04/09/22 Given [...] Toxoid Vaccine (oldterm) 06/21/01 Given 1Result Comment: [facility]: [id number] 2Result Comment: [facility]: [id number] 3Result Comment: [facility]: [id number] 4Result Comment: [facility]: [id number] 5Result Comment: [facility] [phone] 6Result Comment: [05/02/2018] [facility] # [phone] 7Result Comment: [05/31/2017] [facility] [phone] 8Result Comment: [03/16/2014] Dr. Duffy 9Result Comment: [facility]: [id number] 10Result Comment: [07/01/2015] diluent [id number] 08/24/17 Merck 11Admin Note: rcvd elsewhere Medications Advair Diskus 500 mcg-50 mcg inhalation powder 1, inhalation, Inhalation, 2 times a day, rinse mouth and throat after use j45.40, # 1 each, Refills 6, Tot. Refills 6, Maintenance, 01/19/22 12:24:00 EDT, Powder, Route to Pharmacy Electronically, [id number], [facility]/pharmacy #7... Start Date: 01/19/22 Status: Ordered [...] 1 Refills, Maintenance, 04/22/21 15:35:00 EDT, Tablet, [facility]/pharmacy #[id number], Partial fill upon patient request if the prescription is for a schedule II opioid drug., 160, cm, 01/20/21 14:22:00 EDT, Height,... Start Date: 04/22/21 Status: Ordered citalopram 20 mg oral tablet 20 mg, 1, tablet, By Mouth, Daily, # 90 tablet, Refills 1, Tot. Refills 1, Maintenance, 04/30/22 17:34:00 EST, [id number], cm, 02/13/22 15:01:00 EDT, Height, [...] capsule, 0 Refills, Maintenance, 11/19/21 16:31:00 EDT, [facility]/pharmacy #[id number], Partial fill upon [...] 07/31/21 9:32:00 EST, Route to Pharmacy Electronically, [facility]/pharmacy #[id number], Partial fill upon patient request if the prescription is for a schedule II o... Start Date: 07/31/21 Status: Ordered Flonase 50 mcg/inh nasal spray 2 sprays, Nares, Both, Daily in AM, # 16 Gm, 6 Refills, Maintenance, 05/16/21 10:11:00 EST, [place], [facility]/pharmacy #[id number], Partial fill upon patient request if the prescription is for a schedule II opioid drug., 2 sprays Nares, Both Daily in AM, 160, cm,... Start Date: 05/16/21 Status: Ordered gabapentin 100 mg oral capsule 1, capsule, By Mouth, 3 times a day, # 90 capsule, Refills 0, Maintenance, 09/10/22 9:14:00 EDT, Route to Pharmacy Electronically, [id number], 166, cm, 08/31/22 11:19:00 EDT, Height, 63, kg, 12/12/20 13:26:00 EDT, Dry Weight Start Date: 09/10/22 Stop Date: 10/10/22 Status: Ordered loratadine 10 mg oral tablet 10 mg, 1, tablet, By Mouth, Daily, # 90 tablet, Refills 0, Tot. Refills 0, Maintenance, 11/27/21 9:50:00 EDT, Route to Pharmacy Electronically, [facility]/pharmacy #[id number], 160, cm, 08/19/21 15:40:00 EST, Height, 63, kg, 12/12/20 13:26:00 EDT, Dry Weight Start Date: 11/27/21 Status: Ordered losartan 25 mg oral tablet 25 mg, 1, tablet, By Mouth, Daily, # 90 tablet, Refills 1, Tot. Refills 1, Maintenance, 04/10/22 9:35:00 EDT, Route to Pharmacy Electronically, [facility]/pharmacy #[id number], Appointment, 166, cm, 02/13/22 15:01:00 [...] tablet, Refills 11, Route to Pharmacy Electronically, [facility], 160, cm, 08/19/21 15:40:00 EST, Height, 63, [...] capsule, 1 Refills, Maintenance, 05/25/22 9:54:00 EST, [facility]/pharmacy #[id number], 166, cm, 02/13/22 15:01:00 EDT, [...] N0, ER positive, [place] negative, 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 Vital Signs Most recent to oldest [Reference Range]: 1 Height 166 cm (09/29/22 3:15 PM) Social History Social History Type Response Smoking Status Former smoker; Tobac co user in household: No; Other: Quit 30 years ago; Started at 16 YO 1/2 pack daily; entered on: 05/31/17 Sex Patient Care team information Care Team Personnel Name: Mary SHAY, Bridgette Archibald Position: [facility] Physician - Primary Care Member Role: PCP Address: Address: [address] [place] [address]- Care Team Related Persons Name: AMY PENDLETON Address: [address] [place] [address] Name: ILDA DOWLING Address: [address] [place] [address]
--- OUTSIDE RECORDS SUMMARY | 2023-02-05 11:19 | XMS_ITS | Continuity of Care Document ---
Author Name Unknown Organization [facility] Address [address] [place] [address]- Care Team Providers Care Professor Of Management Name Role Phone Mary SHAY, Bridgette Archibald Primary Care Physic payal Encounter [facility] Date(s): 09/16/20 - 10/16/20 [facility] [address] [place] [address]- Allergies, Adverse Reactions, Alerts Substance Reaction Severity [...] Toxoid Vaccine (oldterm) 06/21/01 Given 1Result Comment: [facility]: [id number] 2Result Comment: [facility] [id number] 3Result Comment: [05/02/2018] [facility] # [id number] 4Result Comment: [05/31/2017] [facility] [phone] 5Result Comment: [03/16/2014] Dr. Duffy 6Result Comment: [07/01/2015] diluent [id number] 08/24/17 Merck 7Admin Note: rcvd elsewhere Medications Advair Diskus 250 mcg-50 mcg inhalation powder 1, puffs, Inhalation, 2 times a day, # 180 each, Refills 1, Tot. Refills 1, Maintenance, 10/03/20 12:43:00 EDT, Route to Pharmacy Electronically, [id number], [facility]/pharmacy #[id number], 160.5, cm, 04/19/20 11:16:00 EDT, Height, 55.6,... Start Date: 10/03/20 Stop Date: 04/01/21 Status: Ordered albuterol 0.083% inhalation solution 3 mL = 2.5 mg, Inhalation, Every 6 hours, DX: J45.909, # 60 each, 0 Refills, Maintenance, 08/25/19 10:27:00 EST, Solution, [facility]/pharmacy #[id number], 160.5, cm, 07/19/19 13:59:00 EST, Height, 55.6, kg, 03/15/19 15:53:00 EDT, Dry Weight Start Date: 08/25/19 Status: Ordered barium sulfate 2% oral suspension See Instructions, dispense two 450 mg bottles. Drink one 450 ml bottle at 8am, and one 450 mL bottle 90 minutes prior to procedure., # 900 mL, 0 Refills, Maintenance, 06/05/19 15:49:07 EST, [facility]/pharmacy #[id number], dispense two 450 mg bottles. ; Drink on... Start Date: 06/05/19 Status: Ordered Breo Ellipta 100 mcg-25 mcg/inh inhalation powder 1 puffs, Inhalation, Daily, # 30 each, 5 Refills, Maintenance, 06/04/20 9:31:00 EST, Powder, [facility]/pharmacy #[id number], Substitute for Advair RX, 1 puffs Inhalation Daily, 160.5, cm, 04/19/20 11:16:00 EDT, Height, 55.6, kg, 03/15/19 15:53:00 EDT, Dry Weight Start Date: 06/04/20 Status: Ordered citalopram 20 mg oral tablet 20 mg, 1, tablet, By Mouth, Daily, # 90 tablet, Refills 1, Tot. Refills 1, Maintenance, 09/30/20 11:37:00 EDT, [id number], 160.5, cm, 04/19/20 11:16:00 EDT, Height, [...] 04/19/20 12:01:00 EDT, [facility] Electronically, [id number], 160.5, cm, 04/19/20 11:16:00 EDT, Height, 55.6, kg, 03/15/19 15:53:00 EDT, Dry Weight Start Date: 04/19/20 Status: Ordered losartan 25 mg oral tablet 25 mg, 1, tablet, By Mouth, Daily, # 90 tablet, Refills 3, Tot. Refills 3, Maintenance, 12/20/19 15:58:00 EDT, Route to Pharmacy Electronically, [facility] 160.5, cm, 12/12/19 13:19:00 [...] 90 capsule, 1 Refills, Maintenance, 03/01/20 11:31:00 EDT,[facility]/pharmacy #[id number], 160.5, cm, 12/12/19 13:19:00 EDT, [...] 11/02/20 12:41:00 EDT, 10/03/20 12:41:00 EDT, Gel, [facility]/pharmacy #[id number], Partial fill upon patient request [...] T2 N0, ER positive, [place]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 2013(Confirmed) 10/02/13 Active Osteoporosis(Confirmed) [...]
--- OUTSIDE RECORDS SUMMARY | 2023-02-05 11:19 | XMS_ITS | Continuity of Care Document ---
Author Name Unknown Organization [facility] Address [address] [place] [address]- Care Team Providers Care Shuttle Preparation Supervisor Name Role Phone Mary SHAY, Bridgette Archibald Primary Care Physic payal Encounter [facility] [place] Date(s): 12/27/20 - 01/03/21 [facility] [address] [place] [address]- [place] Encounter Diagnosis Viral URI(Discharge Diagnosis) - 12/27/20 Atrial fibrillation with rapid ventricular response(Discharge Diagnosis) - 12/27/20 Attending Physician: Chase Herring Referring Physician: Mary SHAY, Bridgette Archibald Allergies, [...] Toxoid Vaccine (oldterm) 06/21/01 Given 1Result Comment: [facility]: [id number] 2Result Comment: [facility] [id number] 3Result Comment: [05/02/2018] [facility] # [id number] 4Result Comment: [05/31/2017] [facility] [id number] 5Result Comment: [03/16/2014] Dr. Duffy 6Result Comment: [07/01/2015] diluent [id number] 08/24/17 Merck 7Admin Note: rcvd elsewhere Medications Advair Diskus 250 mcg-50 mcg inhalation powder 1, puffs, Inhalation, 2 times a day, # 180 each, Refills 1, Tot. Refills 1, Maintenance, 10/03/20 12:43:00 EDT, Route to Pharmacy Electronically, [id number], [facility]/pharmacy #[id number], 160.5, [...] 0 Refills, Maintenance, 12/27/20 14:45:00 EDT, Tablet, [facility]/pharmacy #[id number], Partial [...] 12/11/20 15:53:00 EDT, [id number] Partial fill upon patient request if the prescription is for a schedule II... Start Date: 12/11/20 Status: Ordered loratadine 10 mg oral tablet 10 mg, 1, tablet, By Mouth, Daily, # 90 tablet, Refills 0, Tot. Refills 0, Maintenance, 11/28/20 9:28:00 EDT, [id number], 160.5, cm, 11/26/20 11:39:00 EDT, Height, 55.6, kg, 03/15/19 15:53:00 EDT, Dry Weight Start Date: 11/28/20 Status: Ordered losartan 25 mg oral tablet 25 mg, 1, tablet, By Mouth, Daily, # 90 tablet, Refills 0, Tot. Refills 0, Maintenance, 11/29/20 14:27:00 EDT, [id number], 160.5, cm, 11/26/20 11:39:00 EDT, [...] N0, ER positive, [place] negative, 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 Diagnosis Diagnosis Type Effective Dates Health Status Clinical Service Informant Viral URI Discharge Diagnosis 12/27/20 Atrial fibrillation with rapid ventricular response Discharge Diagnosis 12/27/20 Vital Signs Most recent to oldest [Reference Range]: 1 Height 160.0 cm (12/27/20 1:23 PM) Oxygen Saturation [94-100 %] 98 % (12/27/20 1:23 PM) Pulse Rate [55-90 bpm] 153 bpm *H* (12/27/20 1:23 PM) Blood Pressure [90-138/55-84 mm Hg] 100/ 72mm Hg (12/27/20 1:23 PM) Respiratory Rate [16-30 br/min] 16 br/mi n (12/27/20 1:23 PM) Temperature [96.8-100.4 DegF] 98.7 DegF (12/27/20 1:23 PM) Mode of Delivery (Oxygen) Room air (12/27/20 1:23 PM) Blood pressure sites Arm, right (12/27/20 1:23 PM) Temperature Route Temporal (12/27/20 1:23 PM) Social History Social History Type Response Smoking Status Former smoker; Tobac co user in household: No; Other: Quit 30 years ago; Started at 16 YO 1/2 pack daily; entered on: 05/31/17 Sex
--- OUTSIDE RECORDS SUMMARY | 2023-02-05 11:20 | XMS_ITS | Continuity of Care Document ---
Author Name Unknown Organization [facility] Address [address] [place] [address]- Care Team Providers Care Commercial Journeyman Electrician Name Role Phone Mary SHAY, Bridgette Archibald Primary Care Physic payal [facility] [facility] [place] 01/10[place]21 - 01/17/21 [facility] [address] [place] [address]- [place] Encounter Diagnosis Anxiety(Discharge Diagnosis) - 01/10/21 Acute URI(Discharge Diagnosis) - 01/10/21 Attending Physician: Bridgette Hernandez MD Allergies, Adverse [...] Comment: [facility]: [id number] 2Result Comment: [facility] [id number] 3Result Comment: [05/02/2018] [facility] # [id number] 4Result Comment: [05/31/2017] [facility] [phone] 5Result Comment: [03/16/2014] Dr. Duffy 6Result Comment: [07/01/2015] diluent [id number] 08/24/17 [employer]ck 7Admin Note: rcvd elsewhere Medications Advair Diskus 250 mcg-50 mcg inhalation powder 1, puffs, Inhalation, 2 times a day, # 180 each, Refills 1, Tot. Refills 1, Maintenance, 10/03/20 12:43:00 EDT, Route to Pharmacy Electronically, [id number], [facility]/pharmacy #[id number], 160.5, cm, 04/19/20 11:16:00 EDT, [...] 1 tablet, By Mouth, Once, [facility], # [facility] tablet, 0 Refills, Soft Stop, 12/24/20 12:01:00 EDT, Partial fill upon patient request if the prescription is for a schedule II opioid drug. Start Date: 12/24/20 Status: Ordered cetirizine 10 mg oral tablet 1 tablet = 10 mg, By Mouth, Daily, # 30 tablet, 0 Refills, Maintenance, 12/27/20 14:45:00 EDT, Tablet, [facility]/pharmacy #[id number], Partial fill upon patient request if the prescription is for a schedule II opioid drug., 160, cm, 12/27/20 13:23:00 EDT, Height,... Start Date: 12/27/20 Status: Ordered citalopram 20 mg oral tablet 20 mg, 1, tablet, By Mouth, Daily, # 90 tablet, Refills 1, Tot. Refills 1, Maintenance, 09/30/20 11:37:00 EDT, Route to Pharmacy Electronically, [facility]/pharmacy #[id number], 160.5, cm, 04/19/20 11:16:00 EDT, [...] 12/11/20 15:53:00 EDT, Route to Pharmacy Electronically, [facility]/pharmacy #[id number], Partial fill upon patient request if the prescription is for a schedule II... Start Date: 12/11/20 Status: Ordered loratadine 10 mg oral tablet 10 mg, 1, tablet, By Mouth, Daily, # 90 tablet, Refills 0, Tot. Refills 0, Maintenance, 11/28/20 9:28:00 EDT, [id number] 160.5, cm, 11/26/20 11:39:00 EDT, Height, 55.6, kg, 03/15/19 15:53:00 EDT, Dry Weight Start Date: 11/28/20 Status: Ordered losartan 25 mg oral tablet 25 mg, 1, tablet, By Mouth, Daily, # 90 tablet, Refills 0, Tot. Refills 0, Maintenance, 11/29/20 14:27:00 EDT, [id number], 160.5, cm, 11/26/20 11:39:00 [...] 90 capsule, 0 Refills, Maintenance, 11/29/20 14:28:00 EDT,[id number], 160.5, cm, 11/26/20 11:39:00 EDT, [...] infiltrating ductal carcinoma, T2 N0, ER positive, [place]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
--- OUTSIDE RECORDS SUMMARY | 2023-02-05 11:20 | XMS_ITS | Continuity of Care Document ---
Author Name Unknown Organization [facility] Address [address] [place] [address]- Care Team Providers Care Horse Trekking Guide Name Role Phone Mary SHAY, Bridgette Archibald Primary Care Physic payal [place] [facility] [place] 01/14/23 [facility] [address] [place] [address]- Encounter Diagnosis Edema(Discharge Diagnosis) - 01/07/23 Attending Physician: Mary SHAY, Bridgette Archibald Allergies, Adverse Reactions, Alerts Substance Reaction Severity Status Augmentin nausea Active Immunizations Given and Recorded Vaccine Date Status Refusal Reason [id number] 12y+ bivalent booster vax 1 04/09/22 Given [...] Given 1Result Comment: [facility]: [id number] 2Result Comment: [facility]: [id number] 3Result Comment: [facility]: [id number] 4Result Comment: [facility]: 72729-987-29 5Result Comment: [facility] [phone] 6Result Comment: [05/02/2018] [facility] # [id number] 7Result Comment: [05/31/2017] [phone] 8Result Comment: [03/16/2014] Dr. Duffy 9Result Comment: [facility]: 96011-911-46 10Result Comment: [07/01/2015] diluent [id number] 08/24/17 Merck 11Admin Note: rcvd elsewhere Medications [...] Mouth, Once, Administered after procedure - LOT [id number] EXP 01/2024, # 1 tablet, 0 Refills, [...] 0 Refills, Maintenance, 12/15/22 9:34:00 EDT, Tablet, [facility]/pharmacy #[id number], Partial fill upon patient request [...] 11/17/22 8:17:00 EDT, Route to Pharmacy Electronically, [facility], 165, cm, 10/26/22 16:15:00 EDT, Height, 58.7, kg, 10/21/22 21:15:00 EDT, Dry Weight Start Date: 11/17/22 Stop Date: 12/17/22 Status: Ordered losartan 25 mg oral tablet 1 tablet = 25 mg, By Mouth, Daily, # 30 tablet, 0 Refills, Maintenance, 12/15/22 9:35:00 EDT, Tablet, [facility]/pharmacy #[id number], Partial fill upon patient request [...] N0, ER positive, [place] negative, 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 Diagnosis Diagnosis Type Effective Dates Health Status Clini renetta Service Informant Edema Discharge Diagnosis 01/07/23 Vital Signs Most recent to oldest [Reference Range]: 1 Height 163 cm (01/07/23 9:40 AM) Weight 53.3 kg (01/07/23 9:40 AM) Oxygen Saturation [94-100 %] 98 % (01/07/23 9:40 AM) Pulse Rate [55-90 bpm] 60 bpm (01/07/23 9:40 AM) Body Mass Index [18.5-24.99 kg/m2] 20.06 kg/m2 (01/07/23 9:40 AM) Blood Pressure [90-138/55-84 mm Hg] 116/ 63mm Hg (01/07/23 9:40 AM) Mode of Delivery (Oxygen) Room air (01/07/23 9:40 AM) Blood pressure sites Arm, right (01/07/23 9:40 AM) Weight Obtained Via Standing scale (01/07/23 9:40 AM) Social History Social History Type Response Smoking Status Former smoker; Tobac co user in household: No; Other: Quit 30 years ago; Started at 16 YO 1/2 pack daily; entered on: 05/31/17 Sex Note * Brandi Whaley: PERFORM, SIGN, VERIFY Event Display: Patient Education/Instruction Authored Date: [id number] [facility] *[facility] Clinical Summary Name HATTIE ECHEVARRIA Age 82 Years 1940 PCP Mary SHAY, Bridgette Archibald PCP Visit Date 01/07/2023 09:20:00 Additional Instructions: Scheduled Appointments?? Future Appointments ?[address]??[place],??[place],??[address] ?Phone:??[phone]?Fax:??-- ?Appt. Date:??01/07/2023?12:30 PM ?Scheduled Provider:??[address] ?*[facility] ?[address]??[place],??[place],??[address] ?Phone:??--?Fax:??-- ?Appt. Date:??02/01/2023?3:00 PM ?Scheduled Provider:??Kathy Carney Follow-Up Instructions ?? Diagnosis Edema, unspecified Medications: Please continue your medications until [...] oral tablet) 1 tab(s) Oral Daily for 90 Days. TAKE 1 TABLET BY MOUTH EVERY DAY. Refills: 0. Next Dose: Diltiazem (Cardizem CD 180 mg/24 [...] tab(s) Oral Daily. Refills: 0. Next Dose: Metoprolol (Metoprolol Tartrate 50 mg oral tablet) 0.5 tab(s) Oral twice a day. Next Dose: Montelukast (montelukast 10 mg oral tablet) 1 tab(s) Oral Daily. Next Dose: Pantoprazole (pantoprazole 40 mg oral delayed release tablet) 1 tab(s) Oral Daily for 90 Days. TAKE1 TABLET BY MOUTH EVERY DAY. Refills: 0. Next Dose: Sulfamethoxazole/Trimethoprim (Bactrim DS 800 mg-160 mg oral tablet) 1 tab(s) Oral once. Administered after procedure - LOT [id number] EXP 01/2024. Refills: 0. Next Dose: Tiotropium Inhalation Daily use two inhalations of one capsule for each dose. Next Dose: Tiotropium (Spiriva HandiHaler 18 mcg inhalation capsule) INHALE CONTENTS OF 1 CAPSULE EVERY DAY. Next Dose: Allergy Info:?? Augmentin Medications Given This Visit Future Orders ?No future orders Vital Signs Height 163 cm Weight 53.3 kg BMI 20.06 kg/m2 Blood Pressure 116 mm Hg/63 mm Hg Temperature Pulse Rate 60 bpm Respiratory Rate 02 Sat Mode of Delivery 98 %/Room air You can now view a summary of your hospital visit from the comfort of your home through a free online portal called [facility]. [facility] is a website that allows you to securely view your medical information including discharge summary, medications and follow-up visits. ??You can alsosend a secure electronic message to your doctor???s office to request appointments, renew medications or just ask a question. You can enroll at [email or web address] or register during your next office [...] primary care provider, you may find a [facility] provider by calling [facility] webme Link at [phone]. For information about the plan of care [...] Primary Care Member Role: PCP Address: Address: [address] [place] [address] Name: Paris De Jesus LPN Position: S RN Member Role: Primary Care Nurse Name: Lisa Leone RN Position: S RN Member Role: Primary Care Nurse Care Team Related Persons Name: AMY PENDLETON Address: [address] [address] Name: ILDA DOWLING Address: [address] [address]
--- OUTSIDE RECORDS SUMMARY | 2023-02-05 11:20 | XMS_ITS | Continuity of Care Document ---
Author Name Unknown Organization [facility] Address [address] [place] [address]- Care Team Providers Care Snow Technician Name Role Phone Mary SHAY, Bridgette Archibald Primary Care Physic payal Encounter [facility] [place] Date(s): 04/03/22 - 05/03/22 [facility] [address] [place] [address]- Allergies, Adverse Reactions, Alerts Substance Reaction Severity Status Augmentin nausea Active Immunizations Given and Recorded Vaccine Date Status Refusal Reason [id number] 12y+ bivalent booster vax 1 04/09/22 Given [...] 06/21/01 Given 1Result Comment: [facility]: [id number] 2Result Comment: [facility]: [id number] 3Result Comment: [facility]: [phone] 4Result Comment: [facility]: [id number] 5Result Comment: [facility] [phone] 6Result Comment: [05/02/2018] [facility] # 20604-646-60 7Result Comment: [05/31/2017] [facility] [phone] 8Result Comment: [03/16/2014] Dr. Duffy 9Result Comment: [facility]: [phone] 10Result Comment: [07/01/2015] diluent [id number] 08/24/17 Merck 11Admin Note: rcvd elsewhere Medications Advair Diskus 500 mcg-50 mcg inhalation powder 1, inhalation, Inhalation, 2 times a day, rinse mouth and throat after use j45.40, # 1 each, Refills 6, Tot. Refills 6, Maintenance, 01/19/22 12:24:00 EDT, Powder, Route to Pharmacy Electronically, [id number], [facility]/pharmacy #7... Start Date: 01/19/22 Status: Ordered albuterol 0.083% inhalation solution 3 mL = 2.5 mg, Inhalation, Every 6 hours, DX: J45.909, # 60 each, 0 Refills, Maintenance, 08/25/19 10:27:00 EST, Solution, [facility]/pharmacy #[id number], 160.5, cm, 07/19/19 13:59:00 EST, Height, [...] Refills, Maintenance, 04/22/21 15:35:00 EDT, Tablet, [facility]/pharmacy #[id number], Partial fill upon patient request if the prescription is for a schedule II opioid drug., 160, cm, 01/20/21 14:22:00 EDT, Height,... Start Date: 04/22/21 Status: Ordered citalopram 20 mg oral tablet 20 mg, 1, tablet, By Mouth, Daily, # 90 tablet, Refills 1, Tot. Refills 1, Maintenance, 04/30/22 17:34:00 EST, Route to Pharmacy Electronically, [facility]/pharmacy #[id number], 166, cm, 02/13/22 15:01:00 EDT, Height, [...] 0 Refills, Maintenance, 11/19/21 16:31:00 EDT, [facility]/pharmacy #[id number], Partial fill upon patient request if [...] 9:32:00 EST, Route to Pharmacy Electronically, [facility]/pharmacy #[id number], Partial fill upon patient request if the prescription is for a schedule II o... Start Date: 07/31/21 Status: Ordered Flonase 50 mcg/inh nasal spray 2 sprays, Nares, Both, Daily in AM, # 16 Gm, 6 Refills, Maintenance, 05/16/21 10:11:00 EST, [place], [facility]/pharmacy #[id number], Partial fill upon patient request if the prescription is for a schedule II opioid drug., 2 sprays Nares, Both Daily in AM, 160, cm,... Start Date: 05/16/21 Status: Ordered loratadine 10 mg oral tablet 10 mg, 1, tablet, By Mouth, Daily, # 90 tablet, Refills 0, Tot. Refills 0, Maintenance, 11/27/21 9:50:00 EDT, Route to Pharmacy Electronically, [facility]/pharmacy #[id number], 160, cm, 08/19/21 15:40:00 EST, Height, 63, kg, 12/12/20 13:26:00 EDT, Dry Weight Start Date: 11/27/21 Status: Ordered losartan 25 mg oral tablet 25 mg, 1, tablet, By Mouth, Daily, # 90 tablet, Refills 1, Tot. Refills 1, Maintenance, 04/10/22 9:35:00 EDT, Route to Pharmacy Electronically, [facility]/pharmacy #[id number], Appointment, 166, cm, 02/13/22 15:01:00 EDT, [...] Refills 11, Route to Pharmacy Electronically, [facility], 160, cm, 08/19/21 15:40:00 EST, Height, 63, [...] capsule, 1 Refills, Maintenance, 10/23/21 14:10:00 EDT,[facility]/pharmacy #[id number], 160, cm, 08/19/21 15:40:00 EST, Height, [...] N0, ER positive, [place]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 2013 Confirmed 10/02/13 Active [...] Personnel Name: Mary SHAY, Bridgette Archibald Position: [facility] Primary Care Physician Member Role: PCP Address: Address: [address] [place] [address]- Care Team Related Persons Name: ILDA DOWLING Address: home [address] [place] [address]
--- OUTSIDE RECORDS SUMMARY | 2023-02-05 11:20 | XMS_ITS | Continuity of Care Document ---
Author Name Unknown Organization [facility] Address [address] [place] [address]- Care Team Providers Care Respiratory Care Technician Name Role Phone Mary SHAY, Bridgette Archibald Primary Care Physic payal Encounter [facility] [place] Date(s): 08/12/22 - 08/19/22 [facility] [address] [place] [address]- Encounter Diagnosis Anemia(Discharge Diagnosis) - 08/12/22 Adenomatous polyp of colon(Discharge Diagnosis) - 08/12/22 Abnormal urine color(Discharge Diagnosis) - 08/12/22 Trigger middle finger(Discharge Diagnosis) - 08/12/22 Popliteal pain(Discharge Diagnosis) - 08/12/22 Attending Physician: Mary SHAY, Bridgette Archibald Allergies, Adverse Reactions, Alerts Substance Reaction Severity Status Augmentin nausea Active Immunizations Given and Recorded Vaccine Date Status Refusal Reason [id number] 12y+ bivalent booster vax 1 04/09/22 Given [...] 1Result Comment: [facility]: [id number] 2Result Comment: [facility]: [phone] 3Result Comment: [facility]: [id number] 4Result Comment: [facility]: [phone] 5Result Comment: [facility] [phone] 6Result Comment: [05/02/2018] [facility] # [phone] 7Result Comment: [05/31/2017] [facility] [phone] 8Result Comment: [03/16/2014] Dr. Duffy 9Result Comment: [facility]: [phone] 10Result Comment: [07/01/2015] diluent [id number] 08/24/17 Merck 11Admin Note: rcvd elsewhere Medications Advair Diskus 500 mcg-50 mcg inhalation powder 1, inhalation, Inhalation, 2 times a day, rinse mouth and throat after use j45.40, # 1 each, Refills 6, Tot. Refills 6, Maintenance, 01/19/22 12:24:00 EDT, Powder, Route to Pharmacy Electronically, [id number], [facility]/pharmacy #7... Start Date: 01/19/22 Status: Ordered albuterol 0.083% inhalation solution 3 mL = 2.5 mg, Inhalation, Every 6 hours, DX: J45.909, # 60 each, 0 Refills, Maintenance, 08/25/19 10:27:00 EST, Solution, [facility]/pharmacy #[id number], 160.5, cm, 07/19/19 13:59:00 EST, Height, 55.6, kg, 03/15/19 15:53:00 EDT, Dry Weight Start Date: 08/25/19 Status: Ordered cetirizine 10 mg oral tablet 1 tablet = 10 mg, By Mouth, Daily, # 30 tablet, 1 Refills, Maintenance, 04/22/21 15:35:00 EDT, Tablet, [facility]/pharmacy #[id number], Partial fill upon patient request if the prescription is for a schedule II opioid drug., 160, cm, 01/20/21 14:22:00 EDT, Height,... Start Date: 04/22/21 Status: Ordered citalopram 20 mg oral tablet 20 mg, 1, tablet, By Mouth, Daily, # 90 tablet, Refills 1, Tot. Refills 1, Maintenance, 04/30/22 17:34:00 EST, Route to Pharmacy Electronically, [facility]/pharmacy #[id number], 166, cm, 02/13/22 15:01:00 EDT, Height, [...] capsule, 0 Refills, Maintenance, 11/19/21 16:31:00 EDT, [facility]/pharmacy #7111, Partial fill upon patient [...] 07/31/21 9:32:00 EST, Route to Pharmacy Electronically, [facility]/pharmacy #[id number], Partial fill upon patient request if the prescription is for a schedule II o... Start Date: 07/31/21 Status: Ordered Flonase 50 mcg/inh nasal spray 2 sprays, Nares, Both, Daily in AM, # 16 Gm, 6 Refills, Maintenance, 05/16/21 10:11:00 EST, [place], [facility]/pharmacy #7111, Partial fill upon patient request if the prescription is for a schedule II opioid drug., 2 sprays Nares, Both Daily in AM, 160, cm,... Start Date: 05/16/21 Status: Ordered gabapentin 100 mg oral capsule 1, capsule, By Mouth, 3 times a day, # 90 capsule, Refills 0, Maintenance, 07/05/22 16:05:00 EST, Route to Pharmacy Electronically, [facility], 166, cm, 05/29/22 11:40:00 EST, Height, 63, kg, 12/12/20 13:26:00 EDT, Dry Weight Start Date: 07/05/22 Stop Date: 08/04/22 Status: Ordered loratadine 10 mg oral tablet 10 mg, 1, tablet, By Mouth, Daily, # 90 tablet, Refills 0, Tot. Refills 0, Maintenance, 11/27/21 9:50:00 EDT, Route to Pharmacy Electronically, [facility]/pharmacy #[id number], 160, cm, 08/19/21 15:40:00 EST, Height, 63, kg, 12/12/20 13:26:00 EDT, Dry Weight Start Date: 11/27/21 Status: Ordered losartan 25 mg oral tablet 25 mg, 1, tablet, By Mouth, Daily, # 90 tablet, Refills 1, Tot. Refills 1, Maintenance, 04/10/22 9:35:00 EDT, Route to Pharmacy Electronically, [facility]/pharmacy #[id number], Appointment, 166, cm, 02/13/22 15:01:00 EDT, [...] tablet, Refills 11, Route to Pharmacy Electronically, [facility] [address], 160, cm, 08/19/21 15:40:00 EST, Height, 63, [...] capsule, 1 Refills, Maintenance, 05/25/22 9:54:00 EST, [facility]/pharmacy #[id number], 166, cm, 02/13/22 15:01:00 EDT, Height, [...] N0, ER positive, [place]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 2013 Confirmed 10/02/13 Active [...] Effective Dates Health Status Clinical Service Informant Anemia Discharge Diagnosis 08/12/22 Adenomatous polyp of colon Discharge Diagnosis 08/12/22 Abnormal urine color Discharge Diagnosis 08/12/22 Trigger middle finger Discharge Diagnosis 08/12/22 Popliteal pain Discharge Diagnosis 08/12/22 Vital Signs Most recent to oldest [Reference Range]: 1 Height 166 cm (08/12/22 12:46 PM) Weight 59.8 kg (08/12/22 12:46 PM) Oxygen Saturation [94-100 %] 97 % (08/12/22 12:46 PM) Pulse Rate [55-90 bpm] 57 bpm (08/12/22 12:46 PM) Body Mass Index [18.5-24.99 kg/m2] 21.7 kg/m2 (08/12/22 12:46 PM) Blood Pressure [90-138/55-84 mm Hg] 100/ 45mm Hg (08/12/22 12:46 PM) Blood pressure sites Arm, right (08/12/22 12:46 PM) Weight Obtained Via Standing scale (08/12/22 12:46 PM) Social History Social History Type Response Smoking Status Former smoker; Tobac co user in household: No; Other: Quit 30 years ago; Started at 16 YO 1/2 pack daily; entered on: 05/31/17 Sex Note * Malissa Diallo: PERFORM, SIGN, VERIFY Event Display: Patient Education/Instruction Authored Date: [id number] [facility] Clinical Summary Name HATTIE ECHEVARRIA Age 82 Years 1940 PCP Bridgette Hernandez MD PCP Visit Date 08/12/2022 12:36:00 Additional Instructions: Scheduled Appointments?? Future Appointments ?*[facility] ?[address]??[place],??[place],??[address] ?Phone:??--?Fax:??-- ?Appt. Date:??09/10/2022?1:40 PM ?Scheduled Provider:??Bridgette Duffy MD ?[facility] ?[address]??[place],??[place],??[address] ?Phone:??[phone]?Fax:??-- ?Appt. Date:??12/24/2022?1:00 PM ?Scheduled Provider:??[facility] 3D Mammo Rm 4 Follow-Up Instructions ?? With: Address: When: 1 month Comments: FU Diagnosis Pain in unspecified limb; Benign neoplasm of colon, unspecified; Trigger finger, unspecified middlefinger; Anemia, unspecified; Other symptoms and signs involving the genitourinary system Medications: Please continue your medications until treatment [...] capsule Inhalation Daily. Refills: 1. Next Dose: No Longer Take the Following Medications Sulfamethoxazole/Trimethoprim (Bactrim DS 800 mg-160 mg oral tablet) 1 tab(s) Oral once. after procdeure today-ec. Refills: 0. Allergy Info:?? Augmentin Medications Given This Visit Future Orders ?Complete Urinalysis/Reflex Culture? Order Date:08/12/22?- Complete on or after?08/12/22 ?Fecal Occult Blood Immunochemical? Order Date:08/12/22?- Complete on or after?08/12/22 ?Knee 1 or 2 Views Left? Order Date:08/12/22?- Complete on or after?08/12/22 Vital Signs Height 166 cm Weight 59.8 kg BMI 21.7 kg/m2 Blood Pressure 100 mm Hg/45 mm Hg Temperature Pulse Rate 57 bpm Respiratory Rate 02 Sat Mode of Delivery 97 %/ You can now view a summary of your hospital visit from the comfort of your home through a free online portal called [employer]. [employer] is a website that allows you to securely view your medical information including discharge summary, medications and follow-up visits. ??You can alsosend a secure electronic message to your doctor???s office to request appointments, renew medications or just ask a question. You can enroll at [email or web address] or register during your next office visit. [...] primary care provider, you may find a [facility] provider by calling [facility] Link at [phone]. For information about the plan of care [...] Care Team Personnel Name: Mary SHAY, Bridgette rAchibald Position: S Primary Care Physician Member Role: PCP Address: Address: [address] [place] [address]- Care Team Related Persons Name: AMY PENDLETON Address: home [address] [place] [address] Name: ILDA DOWLING Address: [address] [address]
--- OUTSIDE RECORDS SUMMARY | 2023-02-05 11:20 | XMS_ITS | Continuity of Care Document ---
Author Name Unknown Organization [facility] Address [address] [place] [address]- Care Team Providers Care Home Health Nurse Name Role Phone Mary SHAY, Bridgette Archibald Primary Care Physic payal Encounter [facility] Date(s): 01/01/23 - 01/31/23 [facility] [address] [place] [address]- Allergies, Adverse Reactions, Alerts Substance Reaction Severity Status Augmentin nausea Active Immunizations Given and Recorded Vaccine Date Status Refusal Reason [id number] 12y+ bivalent booster vax 1 04/09/22 Given [...] 06/21/01 Given 1Result Comment: [facility]: [id number] 2Result Comment: [facility]: [id number] 3Result Comment: [facility]: [phone] 4Result Comment: [facility]: [phone] 5Result Comment: [facility] [phone] 6Result Comment: [05/02/2018] [facility] # [id number] 7Result Comment: [05/31/2017] [facility] [phone] 8Result Comment: [03/16/2014] Dr. Duffy 9Result Comment: [facility]: [phone] 10Result Comment: [07/01/2015] diluent [id number] 08/24/17 Merck 11Admin Note: rcvd elsewhere Medications [...] Gm, 1 Refills, Maintenance, 10/16/22 10:07:00 EDT, [facility]/pharmacy #[id number], Partial fill upon [...] Once, Administered after procedure - [facility] LOT [id number] EXP 01/2024, # 1 tablet, 0 Refills, [...] 0 Refills, Maintenance, 12/15/22 9:34:00 EDT, Tablet, [facility]/pharmacy #7111, Partial fill upon [...] Maintenance, 01/26/2313:53:00 EDT, Route to Pharmacy Electronically, [facility]/pharmacy #[id number], 163, cm, 01/07/23 9:40:00 EDT, Height, 53, kg, 01/01/23 18:32:00 EDT, Dry Weight Start Date: 01/26/23 Stop Date: 05/26/23 Status: Ordered losartan 25 mg oral tablet 1 tablet = 25 mg, By Mouth, Daily, # 30 tablet, 0 Refills, Maintenance, 12/15/22 9:35:00 EDT, Tablet, [facility]/pharmacy #7111, Partial fill upon [...] Team Personnel Name: Luis Bojorquez RN Position: [facility] RN Member Role: Primary Care Nurse Name: Mary SHAY, Bridgette Archibald Position: [facility] Physician - Primary Care Member Role: PCP Address: Address: [address] [place] [address] Name: Paris De Jesus LPN Position: S RN Member Role: Primary Care Nurse Name: Lisa Leone RN Position: [facility] RN Member Role: Primary Care Nurse Care Team Related Persons Name: AMY PENDLETON Address: [address] [place] [address] Name: ILDA DOWLING Address: [address] [place] [address]
--- OUTSIDE RECORDS SUMMARY | 2023-02-05 11:20 | XMS_ITS | Continuity of Care Document ---
Author Name Unknown Organization [facility] Address [address] [place] [address]- Care Team Providers Care Mucking Machine Operator Name Role Phone Mary SHAY, Bridgette Archibald Primary Care Physic payal [facility]19 [facility] [address] [place] [address]- [facility] Attending Physician: AdmRubens herrera Admitting Physician: Admtr, Rubens Referring Physician: Admtr, Ar8 Allergies, Adverse Reactions, [...] Vaccine (oldterm) 06/21/01 Given 1Result Comment: [facility] [id number] 2Result Comment: [05/02/2018] [facility] # [id number] 3Result Comment: [05/31/2017] [facility] [id number] 4Result Comment: [03/16/2014] Dr. Duffy 5Result Comment: [07/01/2015] diluent [id number] 08/24/17 Merck 6Admin Note: rcvd elsewhere Medications [...] 03/24/19 17:32:08 EDT, Route to Pharmacy Electronically, [id number], [facility] Start Date: 03/24/19 Stop Date: 06/24/20 Status: Ordered Azithromycin 5 Day Dose Pack 250 mg oral tablet 1 pack/packet, By Mouth, Once, # 6 tablet, 0 Refills, Soft Stop, 08/23/19 16:55:00 EST, Tablet, [id number], 160.5, cm, 07/19/19 13:59:00 EST, [...] 1 Refills, Maintenance, 08/23/19 16:52:00 EST, Powder, [facility]/pharmacy #[id number], Substitute for Advair RX, 1 puffs Inhalation Daily, 160.5, cm, 07/19/19 13:59:00 EST,Height, 55.6, kg, 03/15/19 15:53:00 EDT, Dry Weight Start Date: 08/23/19 Status: Ordered citalopram 20 mg oral tablet 20 mg, 1, tablet, By Mouth, Daily, # 90 tablet, Refills 1, Tot. Refills 1, Maintenance, 09/14/19 10:00:00 EDT, Route to Pharmacy Electronically, [facility] ([place]), 160.5, cm, 07/19/19 13:59:00 EST, Height, 55.6, [...] 07/13/18 16:42:32 EST, Route to Pharmacy Electronically, [id number][facility] Start Date: 07/13/18 Stop Date: 07/08/19 [...] Refills, Maintenance, 07/19/19 14:49:00 EST,[facility] ([place]), 160.5, cm, 07/19/19 13:59:00 EST, Height, 55.6, kg, 03/15/19 15:53:00 EDT, Dry Weight Start Date: 07/19/19 Status: Ordered Vitamin D3 = 1,000 International_Units, By Mouth, 0 Refills, Maintenance, 11/22/15 14:34:08 Start Date: 11/22/15 Status: Ordered Voltaren 1% topical gel 1 application, Topically, 4 times a day, # 100 Gm, 0 Refills, Maintenance, 07/13/19 17:07:00 EST, Gel, [facility]/pharmacy #[id number], 1 application Topically 4 times a day, 160.5, cm, 07/13/19 13:23:00 EST, Height, 55.6, kg, 03/15/19 15:53:00 EDT, Dry Weight Start Date: 07/13/19 Status: Ordered Xarelto 20 mg oral tablet See Instructions, 1 tablet by oral route every day with the evening meal, # 30 tablet, 0 Refills, Maintenance, 08/16/19 12:21:00 EST, Tablet, [facility]/pharmacy #[id number], 160.5, cm, 07/19/19 13:59:00 EST, Height, 55.6, kg, 03/15/19 15:53:00 EDT, Dry Weight Start Date: 08/16/19 Status: Ordered Xarelto 20 mg oral tablet See Instructions, 1 tablet by oral route every day with the evening meal, # 90 tablet, 0 Refills, Maintenance, 08/15/19 10:02:00 EST, Tablet, [facility] ([place]), 160.5, cm, 07/19/19 13:59:00 EST, Height, 55.6, [...] N0, ER positive, [place] negative, 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 Social History Social History Type Response Smoking Status Former smoker; Tobac co user in household: No; Other: Quit 30 years ago; Started at 16 YO 1/2 pack daily; entered on: 05/31/17 Sex
--- OUTSIDE RECORDS SUMMARY | 2023-02-05 11:20 | XMS_ITS | Continuity of Care Document ---
Author Name Unknown Organization [facility] Address [address] [place] [address]- Care Team Providers Care Development Intern Name Role Phone Mary SHAY, Bridgette Archibald Primary Care Physic payal [facility] - 12/13/22 [facility] [address] [place] [address]- Allergies, Adverse Reactions, Alerts Substance Reaction Severity Status Augmentin nausea Active Immunizations Given and Recorded Vaccine Date Status Refusal Reason [id number] 12y+ bivalent booster vax 1 04/09/22 Given [...] 1Result Comment: [facility]: [id number] 2Result Comment: [facility]: [id number] 3Result Comment: [facility]: [id number] 4Result Comment: [facility]: [id number] 5Result Comment: [facility] [phone] 6Result Comment: [05/02/2018] [facility] # [id number] 7Result Comment: [05/31/2017] [facility] [id number] 8Result Comment: [03/16/2014] Dr. Duffy 9Result Comment: [facility]: [id number] 10Result Comment: [07/01/2015] diluent [id number] 08/24/17 Merck 11Admin Note: rcvd elsewhere Medications [...] Gm, 1 Refills, Maintenance, 10/16/22 10:07:00 EDT, [facility]/pharmacy #[id number], Partial fill upon patient request [...] Once, Administered after procedure - [facility] LOT [id number] EXP 01/2024, # 1 tablet, 0 Refills, [...] 11/17/22 8:17:00 EDT, Route to Pharmacy Electronically, [id number], 165, cm, 10/26/22 16:15:00 EDT, Height, 58.7, [...] N0, ER positive, CT negative, 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 Social History Social History Type Response Smoking Status Former smoker; Tobac co user in household: No; Other: Quit 30 years ago; Started at 16 YO 1/2 pack daily; entered on: 05/31/17 Sex Patient Care team information Care Team Personnel Name: Luis Bojorquez RN Position: S RN Member Role: Primary Care Nurse Name: Mary SHAY, Bridgette Archibald Position: [facility] Physician - Primary Care Member Role: PCP Address: Address: [address] [place] [id number] Name: Paris De Jesus LPN Position: S RN Member Role: Primary Care Nurse Name: Keya Rollins RN Position: S RN Member Role: Primary Care Nurse Name: Lisa Leone RN Position: S RN Member Role: Primary Care Nurse Care Team Related Persons Name: AMY PENDLETON Address: [address] [place] [address] Name: ILDA DOWLING Address: [address] [place] [address]
--- OUTSIDE RECORDS SUMMARY | 2023-02-05 11:20 | XMS_ITS | Continuity of Care Document ---
Author Name Unknown Organization [facility] Address [address] [place] [address]- Care Team Providers Care Salesperson Terrazzo Tiles Name Role Phone Mary SHAY, Bridgette Archibald Primary Care Physic payal [facility]): 04[facility]22/21 - 05/22/21 [facility] [address] [place] [address]- [place] Attending Physician: Admsharon, Rubens Admitting Physician: Admtr, Rubens Referring Physician: Admtr, [...] Vaccine (oldterm) 06/21/01 Given 1Result Comment: [facility]: [id number] 2Result Comment: [facility]: [id number] 3Result Comment: [facility]: [id number] 4Result Comment: [facility] [id number] 5Result Comment: [05/02/2018] [facility] # [id number] 6Result Comment: [05/31/2017] [facility] [id number] 7Result Comment: [03/16/2014] Dr. Duffy 8Result Comment: [07/01/2015] diluent [id number] 08/24/17 Merck 9Admin Note: rcvd elsewhere Medications albuterol 0.083% inhalation solution 3 mL = 2.5 mg, Inhalation, Every 6 hours, DX: J45.909, # 60 each, 0 Refills, Maintenance, 08/25/19 10:27:00 EST, Solution, [facility]/pharmacy #[id number], 160.5, cm, 07/19/19 13:59:00 EST, Height, 55.6, kg, 03/15/19 15:53:00 EDT, Dry Weight Start Date: 08/25/19 Status: Ordered Azithromycin 5 Day Dose Pack 250 mg oral tablet 1 pack/packet, By Mouth, Once, # 6 tablet, 0 Refills, Soft Stop, 04/10/21 16:39:00 EDT, Tablet, [facility]/pharmacy #[id number], Partial fill upon patient [...] 1 Refills, Maintenance, 04/22/21 15:35:00 EDT, Tablet, [facility]/pharmacy #[id number], Partial fill upon patient request if the prescription is for a schedule II opioid drug., 160, cm, 01/20/21 14:22:00 EDT, Height,... Start Date: 04/22/21 Status: Ordered citalopram 20 mg oral tablet 20 mg, 1, tablet, By Mouth, Daily, # 90 tablet, Refills 1, Tot. Refills 1, Maintenance, 03/26/21 14:13:00 EDT, Route to Pharmacy Electronically, [facility]/pharmacy #[id number], 160, cm, 01/20/21 14:22:00 EDT, [...] 12/11/20 15:53:00 EDT, [id number] Partial fill upon patient request if the prescription is for a schedule II... Start Date: 12/11/20 Status: Ordered loratadine 10 mg oral tablet 10 mg, 1, tablet, By Mouth, Daily, # 90 tablet, Refills 0, Tot. Refills 0, Maintenance, 11/28/20 9:28:00 EDT, [id number], 160.5, cm, 11/26/20 11:39:00 EDT, Height, 55.6, kg, 03/15/19 15:53:00 EDT, Dry Weight Start Date: 11/28/20 Status: Ordered losartan 25 mg oral tablet 25 mg, 1, tablet, By Mouth, Daily, # 90 tablet, Refills 1, Tot. Refills 1, Maintenance, 03/26/21 13:41:00 EDT, [id number], 160, cm, 01/20/21 14:22:00 EDT, [...] 90 capsule, 0 Refills, Maintenance, 04/09/21 14:31:00 EDT,[id number], 160, cm, 01/20/21 14:22:00 EDT, [...] infiltrating ductal carcinoma, T2 N0, ER positive, [place]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
--- OUTSIDE RECORDS SUMMARY | 2023-02-05 11:20 | XMS_ITS | Continuity of Care Document ---
Author Name Unknown Organization [facility] Address [address] [place] [address]- Care Team Providers Care Bullet Assembly Press Operator Name Role Phone Mary SHAY, Bridgette Archibald Primary Care Physic payal [facility] 04[facility]21 - 04/17/21 [facility] [address] [place] [address]- [place] Attending Physician: Not on Staff, Attending MD Referring Physician: Mary SHAY, Bridgette Archibald [...] Vaccine (oldterm) 06/21/01 Given 1Result Comment: [facility]: [id number] 2Result Comment: [facility] [id number] 3Result Comment: [05/02/2018] [facility] # [id number] 4Result Comment: [05/31/2017] [facility] [id number] 5Result Comment: [03/16/2014] Dr. Duffy 6Result Comment: [07/01/2015] diluent [id number] 08/24/17 Merck 7Admin Note: rcvd elsewhere Medications Advair Diskus 250 mcg-50 mcg inhalation powder 1, puffs, Inhalation, 2 times a day, # 180 each, Refills 1, Tot. Refills 1, Maintenance, 10/03/20 12:43:00 EDT, Route to Pharmacy Electronically, [id number], [facility]/pharmacy #[id number], 160.5, cm, 04/19/20 11:16:00 EDT, Height, 55.6,... Start Date: 10/03/20 Stop Date: 04/01/21 Status: Ordered albuterol 0.083% inhalation solution 3 mL = 2.5 mg, Inhalation, Every 6 hours, DX: J45.909, # 60 each, 0 Refills, Maintenance, 08/25/19 10:27:00 EST, Solution, [facility]/pharmacy #[id number], 160.5, cm, 07/19/19 13:59:00 EST, Height, 55.6, kg, 03/15/19 15:53:00 EDT, Dry Weight Start Date: 08/25/19 Status: Ordered Azithromycin 5 Day Dose Pack 250 mg oral tablet 1 pack/packet, By Mouth, Once, # 6 tablet, 0 Refills, Soft Stop, 04/10/21 16:39:00 EDT, Tablet, [facility]/pharmacy #[id number], Partial fill upon patient request if the prescription is for a schedule II opioid drug., 160, cm, 01/20/21 14:22:00 EDT, Height, 63, kg... Start Date: 04/10/21 Status: Ordered Bactrim DS 800 mg-160 mg oral tablet 1 tablet, By Mouth, Once, after procdeure [facility] home-, # 1 tablet, 0 Refills, Soft Stop, 12/24/20 12:01:00 EDT, Partial fill upon patient request if the prescription is for a schedule II opioid drug. Start Date: 12/24/20 Status: Ordered cetirizine 10 mg oral tablet 1 tablet = 10 mg, By Mouth, Daily, # 30 tablet, 0 Refills, Maintenance, 12/27/20 14:45:00 EDT, Tablet, [facility]/pharmacy #[id number], Partial fill upon patient request if the prescription is for a schedule II opioid drug., 160, cm, 12/27/20 13:23:00 EDT, Height,... Start Date: 12/27/20 Status: Ordered citalopram 20 mg oral tablet 20 mg, 1, tablet, By Mouth, Daily, # 90 tablet, Refills 1, Tot. Refills 1, Maintenance, 03/26/21 14:13:00 EDT, Route to Pharmacy Electronically, [facility]/pharmacy #[id number], 160, cm, 01/20/21 14:22:00 EDT, Height, [...] 12/11/20 15:53:00 EDT, Route to Pharmacy Electronically, [facility]/pharmacy #[id number], Partial fill upon patient request if the prescription is for a schedule II... Start Date: 12/11/20 Status: Ordered Flonase 50 mcg/inh nasal spray 1 sprays, Nares, Both, 2 times a day, # 1 each, 6 Refills, Maintenance, 01/20/21 14:20:00 EDT, [id number] fill upon patient request if the prescription is for a schedule II opioid drug., 1 sprays Nares, Both 2 times a day, 160,... Start Date: 01/20/21 Status: Ordered loratadine 10 mg oral tablet 10 mg, 1, tablet, By Mouth, Daily, # 90 tablet, Refills 0, Tot. Refills 0, Maintenance, 11/28/20 9:28:00 EDT, Route to Pharmacy Electronically, [facility]/pharmacy #[id number], 160.5, cm, 11/26/20 11:39:00 EDT, Height, 55.6, kg, 03/15/19 15:53:00 EDT, Dry Weight Start Date: 11/28/20 Status: Ordered losartan 25 mg oral tablet 25 mg, 1, tablet, By Mouth, Daily, # 90 tablet, Refills 1, Tot. Refills 1, Maintenance, 03/26/21 13:41:00 EDT, [id number], 160, cm, 01/20/21 14:22:00 [...] [place]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 2013(Confirmed) 10/02/13 Active Osteoporosis(Confirmed) [...]
--- OUTSIDE RECORDS SUMMARY | 2023-02-05 11:20 | XMS_ITS | Continuity of Care Document ---
Author Name Unknown Organization [facility] Address [address] [place] [address]- Care Team Providers Care Physical Metallurgist Name Role Phone Mary SHAY, Bridgette Archibald Primary Care Physic payal [facility] 12[facility]20 - 01/26/21 [facility] [address] [place] [address]- [place] Attending Physician: Rubens Pinto Admitting Physician: AdmRubens herrera Referring Physician: AdmtrRubens Allergies, Adverse Reactions, Alerts Substance Reaction Severity Status Augmentin nausea Active Immunizations Given and Recorded Vaccine Date Status Refusal Reason SARS-CoV-2 (COVID-19) mRNA BNT-162b2 vac 08/16/20 Recorded SARS-CoV-2 (COVID-19) mRNA BNT-162b2 vac 07/26/20 Recorded influenza virus vaccine, inactivated 1 04/19/20 Gi mea influenza virus vaccine, inactivated 2 04/26/19 Gi [...] 1Result Comment: [facility]: [id number] 2Result Comment: [facility] [id number] 3Result Comment: [05/02/2018] [facility] # [id number] 4Result Comment: [05/31/2017] [facility] [id number] 5Result Comment: [03/16/2014] Dr. Duffy 6Result Comment: [07/01/2015] diluent [id number] 08/24/17 Merck 7Admin Note: rcvd elsewhere Medications Advair Diskus 250 mcg-50 mcg inhalation powder 1, puffs, Inhalation, 2 times a day, # 180 each, Refills 1, Tot. Refills 1, Maintenance, 10/03/20 12:43:00 EDT, Route to Pharmacy Electronically, [id number], [facility]/pharmacy #[id number], 160.5, cm, 04/19/20 11:16:00 [...] 0 Refills, Maintenance, 12/27/20 14:45:00 EDT, Tablet, [facility]/pharmacy #[id number], Partial fill upon patient request if the prescription is for a schedule II opioid drug., 160, cm, 12/27/20 13:23:00 EDT, Height,... Start Date: 12/27/20 Status: Ordered citalopram 20 mg oral tablet 20 mg, 1, tablet, By Mouth, Daily, # 90 tablet, Refills 1, Tot. Refills 1, Maintenance, 09/30/20 11:37:00 EDT, Route to Pharmacy Electronically, [facility]/pharmacy #[id number], 160.5, cm, 04/19/20 11:16:00 [...] 12/11/20 15:53:00 EDT, Route to Pharmacy Electronically, [facility]/pharmacy #[id number], Partial fill upon patient request if the prescription is for a schedule II... Start Date: 12/11/20 Status: Ordered Flonase 50 mcg/inh nasal spray 1 sprays, Nares, Both, 2 times a day, # 1 each, 6 Refills, Maintenance, 01/20/21 14:20:00 EDT, [place], [facility]/pharmacy #[id number], Partial fill upon patient request if the prescription is for a schedule II opioid drug., 1 sprays Nares, Both 2 times a day, 160,... Start Date: 01/20/21 Status: Ordered loratadine 10 mg oral tablet 10 mg, 1, tablet, By Mouth, Daily, # 90 tablet, Refills 0, Tot. Refills 0, Maintenance, 11/28/20 9:28:00 EDT, Route to Pharmacy Electronically, [facility]/pharmacy #[id number], 160.5, cm, 11/26/20 11:39:00 EDT, Height, 55.6, kg, 03/15/19 15:53:00 EDT, Dry Weight Start Date: 11/28/20 Status: Ordered losartan 25 mg oral tablet 25 mg, 1, tablet, By Mouth, Daily, # 90 tablet, Refills 0, Tot. Refills 0, Maintenance, 11/29/20 14:27:00 EDT, [id number], 160.5, cm, 11/26/20 11:39:00 EDT, [...] N0, ER positive, [place]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 2013(Confirmed) 10/02/13 Active Osteoporosis(Confirmed) [...]
--- OUTSIDE RECORDS SUMMARY | 2023-02-05 11:20 | XMS_ITS | Continuity of Care Document ---
Author Name Unknown Organization [facility] Address [address] [place] [address]- Care Team Providers Care Multimedia Teacher Name Role Phone Mary SHAY, Bridgette Archibald Primary Care Physic payal [facility] - 09/06/21 [facility] [address] [place] [address]- [place] Allergies, Adverse Reactions, Alerts Substance Reaction [...] Toxoid Vaccine (oldterm) 1/1/02 Given 1Result Comment: [facility]: [id number] 2Result Comment: [facility]: 84147-465-36 3Result Comment: [facility]: [id number] 4Result Comment: [facility] [id number] 5Result Comment: [05/02/2018] [facility] # [id number] 6Result Comment: [05/31/2017] [facility] [id number] 7Result Comment: [03/16/2014] Dr. Duffy 8Result Comment: [07/01/2015] diluent [id number] 08/24/17 Merck 9Admin Note: rcvd elsewhere Medications [...] 03/26/21 14:13:00 EDT, Route to Pharmacy Electronically, [facility]/pharmacy #[id number], 160, cm, 01/20/21 14:22:00 EDT, [...] 07/31/21 9:32:00 EST, Route to Pharmacy Electronically, [facility]/pharmacy #[id number], Partial fill upon patient request if the prescription is for a schedule II o... Start Date: 07/31/21 Status: Ordered loratadine 10 mg oral tablet 10 mg, 1, tablet, By Mouth, Daily, # 90 tablet, Refills 0, Tot. Refills 0, Maintenance, 11/28/20 9:28:00 EDT, Route to Pharmacy Electronically, [facility]/pharmacy #[id number], 160.5, cm, 11/26/20 11:39:00 EDT, Height, 55.6, kg, 03/15/19 15:53:00 EDT, Dry Weight Start Date: 11/28/20 Status: Ordered losartan 25 mg oral tablet 25 mg, 1, tablet, By Mouth, Daily, # 90 tablet, Refills 1, Tot. Refills 1, Maintenance, 03/26/21 13:41:00 EDT, [id number], 160, cm, 01/20/21 14:22:00 [...] tablet, Refills 0, Route to Pharmacy Electronically, [id number], 160, cm, 07/01/21 11:43:00 EST, Height, 63, [...] infiltrating ductal carcinoma, T2 N0, ER positive, [place]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
--- OUTSIDE RECORDS SUMMARY | 2023-02-05 11:20 | XMS_ITS | Continuity of Care Document ---
Author Name Unknown Organization [facility] ter Address [address] [place] [id number] Care Team Providers Care Winding Operator Name Role Phone Mary SHAY, Bridgette Archibald Primary Care Physic payal Encounter [facility] Date(s): 10/21/22 - 10/26/[address] [address]- Encounter Diagnosis Hyperkalemia(Final) - 10/21/22 Shortness of breath(Final) - 10/21/22 Anemia(Final) - 10/21/22 Atrial fibrillation with RVR(Final) - 10/21/22 Oral thrush(Discharge Diagnosis) - 10/21/22 Discharge Disposition: A-Transfer SNF Attending Physician: Ledy Akers MD Admitting Physician: Nargis Herman MD Referring Physician: Not on Staff, Referring MD Allergies, Adverse Reactions, Alerts Substance Reaction Severity Status Augmentin nausea Active Immunizations Given and Recorded Vaccine Date Status Refusal Reason [id number] 12y+ bivalent booster vax 1 04/09/22 Given [...] [facility]: [id number] 2Result Comment: [facility]: [id number] 3Result Comment: [facility]: [id number] 4Result Comment: [facility]: [id number] 5Result Comment: [facility] [id number] 6Result Comment: [05/02/2018] [facility] # [id number] 7Result Comment: [05/31/2017] [facility] [phone] 8Result Comment: [03/16/2014] Dr. Duffy 9Result Comment: [facility]: [id number] 10Result Comment: [07/01/2015] diluent [id number] 08/24/17 [employer] 11Admin Note: rcvd elsewhere Medications [...] 1 Refills, Maintenance, 10/16/22 10:07:00 EDT, [facility]/pharmacy #[id number], Partial [...] oral capsule 100 mg, Capsule, By Mouth, 10/26/22 9:00:00 EDT Start Date: 10/26/22 Stop Date: 10/26/22 Status: Completed losartan 25 mg oral tablet [...] N0, ER positive, TN negative, 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 Diagnosis Diagnosis Type Effective Dates Health Status Clini renetta Service Informant Oral thrush Discharge Diagnosis 10/21/22 Non-Specified Results Orders for Microbiology Reports Name Date AFB Culture w/ AFB Smear, Respiratory 10/25/22 Fungal Culture, Respiratory 10/25/22 Sputum Culture w/ Gram Smear 10/25/22 Blood Culture 10/21/22 Blood Culture #2 10/21/22 Microbiology Reports TEST:AFB Culture w/AFB Smear, Respiratory STATUS:Unauthenticated BODY SITE: SOURCE:EXPECT COLLECTED DATE/TIME:10/25/22 12:18 PM AFB Culture w/AFB Smear, Respiratory SPECIMEN DESCRIPTION : EXPECTORATED SPUTUM SPUTUM SPECIAL REQUESTS : NONE DIRECT EXAM : NO ACID FAST BACILLI SEEN ON DIRECT SMEAR, TEST PERFORMED AT [facility] ([facility]) CULTURE : SPECIMEN SENT TO [facility], [place], [place] REPORT STATUS : PRELIMINARY REPORT TEST:Sputum Culture STATUS:Unauthenticated BODY SITE: SOURCE:EXPECT COLLECTED DATE/TIME:10/25/22 12:17 PM Sputum Culture SPECIMEN DESCRIPTION : EXPECTORATED SPUTUM SPECIAL REQUESTS : NONE GRAM STAIN : 2+ POLYMORPHONUCLEAR LEUKOCYTES 1+ SQ.EPITHELIAL CELLS 2+ GRAM POSITIVE COCCI 1+ GRAM POSITIVE RODS CULTURE : 3+ STAPHYLOCOCCUS AUREUS. This isolate was identified using Maldi-TOF system REPORT STATUS : PRELIMINARY REPORT TEST:Fungal Culture, Respiratory STATUS:Unauthenticated BODY SITE: SOURCE:EXPECT COLLECTED DATE/TIME:10/25/22 12:17 PM Fungal Culture, Respiratory SPECIMEN DESCRIPTION : EXPECTORATED SPUTUM SPUTUM SPECIAL REQUESTS : NONE DIRECT EXAM : NO FUNGAL ELEMENTS OBSERVED REPORT STATUS : PRELIMINARY REPORT TEST:Blood Culture, Second Order STATUS:Auth (Verified) BODY SITE: SOURCE:Blood COLLECTED DATE/TIME:10/21/22 1:12 PM Blood Culture, Second Order SPECIMEN DESCRIPTION : BLOOD RIGHT AC SPECIAL REQUESTS : NONE CULTURE : NO GROWTH 5 DAYS. REPORT STATUS : FINAL 10/26/2022 TEST:Blood Culture STATUS:Auth (Verified) BODY SITE: SOURCE:Blood COLLECTED DATE/TIME:10/21/22 12:52 PM Blood Culture SPECIMEN DESCRIPTION : BLOOD LEFT AC SPECIAL REQUESTS : NONE CULTURE : NO GROWTH 5 DAYS. REPORT STATUS : FINAL 10/26/2022 Radiology Reports * Exam Date Time Procedure Performing Provider Status 10/24/22 12:[address] Chest W/ Contrast Adrienne Garcia; Auth (Verified) Notes: (CT Chest W/ Contrast) Reason For Exam: new cavitary nodule;Infection RESULT: CT Chest W/ Contrast CT Chest W/ Contrast INDICATION: Reason: Infection; new cavitary nodule; Clinical Question(s): Abscess Empyema; Order Comment: TECHNIQUE: Helical CT scan of the chest with IV contrast, formatted in 3 planes. 75 cc of [id number] was administered intravenously. Weight-based protocol was performed using automatic exposure control. CTDIvol Body: 4.90 mGy, DLP Body: 185 mGy*cm. COMPARISON: CT chest from 10/14/2022 CT abdomen and pelvis from 10/23/2022 FINDINGS: Public Policy Associate view findings, lines and tubes: None. Trachea and airways: Patent without evidence of tracheal or endobronchial lesion. Lungs and pleura: Compared to 10/14/2022, decreasing patchy areas of airspace consolidation throughout both lungs. Previously seen confluent consolidation in the left lung apex is much smaller. Other areas of somewhat nodular consolidation have overall decreased since the last exam, although opacity in the right lung base is slightly increased. Decreased confluence of consolidation in the left lower lung (205:68 versus 505:56 on prior). A left lower lobe nodule measuring 2.2 cm (205:67) exhibits a new area of central cavitation which is newfrom prior CT and recognized on 10/23/2022 CT abdomen and pelvis. No pleural effusion or pneumothorax. Mediastinum and randolph: No mass or hematoma. Decreasing size of mediastinal lymph nodes for example right lower paratracheal node (201:37) now 8 mm, previously 13 mm. Large hiatal hernia with some debris in the esophagus. Heart: Heart is normal in size. No pericardial effusion. Moderate coronary artery calcification. Aorta: Mild vascular calcification but no aneurysm. Pulmonary arteries: Normal caliber. No evidence of pulmonary embolism on this study performed without angiographic technique. Chest wall soft tissues: No acute abnormality. Some curvilinear calcifications in the left breast may be vascular in origin. Diaphragm: Small fat-containing Bochdalek hernias. Upper abdomen: No significant abnormality. Unchanged centimeter hypodensities in the liver. Bones: No acute abnormality. Spine degenerative changes. Old rib fractures. IMPRESSION: Compared to CT chest from 10/14/2022: Overall decreasing consolidative opacities throughout the lungs significantly improved in the left upper lobe and left lower lobe, although perhaps minimally increased in the right lung base. As mentioned on prior CT abdomen and pelvis a 2.2 cm nodule in the left lung base where an area of more confluent consolidation had been previously, which exhibits a new central focus of cavitation. Overall findings are suggestive of a improving infectious/inflammatory process. Continued attention on follow-up is recommended. Large hiatal hernia. WSN: [id number] Ordering Physician: Lisa Driver Dictated By: Leonardo Taveras MD Dictated Date/Time: 10/24/22 1:52 pm Reviewed By: Leonardo Taveras MD Signed By: Leonardo Taveras MD Signed Date/Time: 10/24/22 1:52 pm Transcribed By: MERLY Transcribed Date/Time: 10/24/22 1:41 pm * Exam Date Time Procedure Performing Provider Status 10/23/22 2:[address] Abdomen and Pelvis W/O Contrast Piyush Valencia; Auth (Verified) Notes: (CT Abdomen and Pelvis W/O Contrast) Reason For Exam: retroperitoneal bleed;Other: RESULT: CT Abdomen and Pelvis W/O Contrast CT Abdomen and Pelvis W/O Contrast Reason: Other:; retroperitoneal bleed; Clinical Question(s): Hemorrhage Hematoma; Order Comment: TECHNIQUE: Spiral CT through the abdomen and pelvis without IV contrast formatted in 3 planes. Thisstudy was performed without oral contrast. Weight- based protocol using automatic tube modulation was used to optimize exposure parameters. CTDIvol Body: 14.60 mGy, DLP Body: 728 mGy*cm. COMPARISON: CT abdomen and pelvis 09/25/2022, 10/04/2020. FINDINGS: Public Policy Associate View Findings, Lines and Tubes: None. Visualized Chest: Patchy consolidative and nodular opacities are present in bilateral lung bases. Acavitary nodule is present in the left lung base measuring 2.0 x 1.7 cm; this nodule has decreased in size from the prior examination, previously measuring approximately 2.3 x 1.9 cm, but the internal cavitation is new. Compared to the study of 10/14/2022, the extent of consolidation opacity has overall decreased in the left lower lobe, but is slightly increased in the right lower lobe. No pleuraleffusion. The heart is normal in size. No pericardial effusion. Diaphragm: Normal. Liver: Multiple subcentimeter circumscribed low-density lesions likely represent cysts (in the absence of known malignancy). Gallbladder: No CT evidence of gallbladder pathology. Bile ducts: No biliary ductal dilation. Spleen: Normal. Pancreas: Normal. Adrenal glands: Normal. Kidneys and ureters: No hydronephrosis or noncontrast evidence of suspicious masses. Parapelvic simple cysts are present bilaterally. Bilateral nonobstructive renal calculi, as described on recent CTurogram.. Bladder: Calculi in the dependent aspect of the bladder Reproductive organs: Uterus is surgically absent. No adnexal mass. Stomach, small bowel, and large bowel: Moderate type III paraesophageal hernia. Stomach is otherwise unremarkable. Large and small bowel are normal in course and caliber without obstruction or focal inflammatory change. Large volume retained stool is present in the ascending colon. Appendix: Not seen, but no evidence of appendicitis. Peritoneum and retroperitoneum: No ascites or pneumoperitoneum. No omental or mesenteric lesions. Lymph nodes: No enlarged lymph nodes. Blood vessels: Moderate atherosclerotic vascular calcification. No aortic aneurysm. Abdominal and pelvic wall: There is enlargement of bilateral rectus muscles in the pelvis by hyperdense hematomas, measuring 6.0 x 3.6 x 3.9 cm on the right, and 3.4 x 2.9 x 5 cm on the left. These are new from the study of 09/25/2022. Tiny fat-containing umbilical hernia is also present. Subcutaneous fat stranding is noted in bilateral flanks in the pelvis. There is a small right inguinal hernia containing fat and small amount of low-density fluid, similar to prior Bones: No acute abnormality. Degenerative changes of the spine. Mild stairstep anterolisthesis between the L3 and L5 with marked loss of disc space at L4-5 and broad-based disc bulge at this level, with suspected high-grade spinal stenosis. Mild chronic loss of height of the L4 vertebral body. 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 IMPRESSION: 1. Intramuscular hematomas in bilateral rectus muscles in the pelvis, new from 09/25/2022. 2. No evidence of retroperitoneal hematoma or other acute intra-abdominal abnormality. 3. Consolidative and nodular opacities in bilateral lung bases, improved on the left and increased on the right since the CT of 10/14/2022. There has been interval development of cavitation within a nodular opacity in the left base, though the nodule has decreased in size. A actionable message (Miranda) has been communicated via the [employer] system on 10/23/2022 3:55 PM, Message ID [id number]. WSN: [id number] Ordering Physician: Lisa Driver Dictated By: Sofie Ramirez MD Dictated Date/Time: 10/23/22 3:55 pm Reviewed By: Sofie Ramirez MD Signed By: Sofie Ramirez MD Signed Date/Time: 10/23/22 3:55 pm Transcribed By: MERLY Transcribed Date/Time: 10/23/22 3:30 pm * Exam Date Time Procedure Performing Provider Status 10/23/22 8:52 AM Chest Portable Mariana Kaye; Aut h (Verified) Notes: (Chest Portable) Reason For Exam: Cough RESULT: Chest Portable Chest Portable Reason: Cough; Clinical Question(s): Pneumonia / Pneumonia COMPARISON: 10/21/2022 FINDINGS: LINES AND TUBES: None. LUNGS AND PLEURA: Worsening patchy airspace opacity throughout the left lung. No pleural effusion. No pneumothorax. HEART, MEDIASTINUM AND RANDOLPH: Unchanged. BONES AND SOFT TISSUES: No acute abnormality. IMPRESSION: Worsening patchy airspace opacity in the left lung. WSN: [id number] Ordering Physician: Lisa Driver Dictated By: Leonardo Moran MD Dictated Date/Time: 10/23/22 11:56 a Reviewed By: Leonardo Moran MD Signed By: Leonardo Moran MD Signed Date/Time: 10/23/22 11:56 am Transcribed By: MERLY Transcribed Date/Time: 10/23/22 11:56 am * Exam Date Time Procedure Performing Provider Status 10/21/22 1:30 PM Chest 2 Views Frontal and Lat Viktoria Martinez; Auth (Verified) Notes: (Chest 2 Views Frontal and Lat) Reason For Exam: Shortness of Breath RESULT: Chest 2 Views Frontal and Lat Chest 2 Views Frontal and Lat Hx of Present Illness: pt here with SOB and was dx with PNA and covid on 4 26 checked O2 sat at home was 88%; Reason: Shortness of Breath; Clinical Question(s): CHF COMPARISON: 10/13/2022 FINDINGS: LINES AND TUBES: None. LUNGS AND PLEURA: Hazy ill-defined opacities about the left lung have decreased in size and density since the prior study. Right lung remains clear. No overt pulmonary edema. Tiny pleural effusions. HEART, MEDIASTINUM AND RANDOLPH: Unchanged. Moderate size hiatal hernia reidentified. BONES AND SOFT TISSUES: No acute abnormality. IMPRESSION: Persistent but significant improvement in multifocal pneumonia throughout the left lung. WSN: [id number] Ordering Physician: Bruce Naik Dictated By: Randall Chun MD Dictated Date/Time: 10/21/22 1:46 pm Reviewed By: Randall Chun MD Signed By: Randall Chun MD Signed Date/Time: 10/21/22 1:46 pm Transcribed By: MERLY Transcribed Date/Time: 10/21/22 1:46 pm Vital Signs Most recent to oldest [Reference Range]: 1 2 3 Height 165 cm (10/26/22 4:15 PM) 165 cm (10/26/22 11:13 AM) 165 cm (10/25/22 7:53 PM) Weight 58.7 kg (10/21/22 8:59 PM) 60 kg (10/21/22 12:18 PM) 60 kg (10/21/22 12:14 PM) Oxygen Saturation [94-100 %] 96 % (10/26/22 4:15 PM) 97 % (10/26/22 11:13 AM) 100 % (10/26/22 6:00 AM) Pulse Rate [55-90 bpm] 64 bpm (10/26/22 4:15 PM) 57 bpm (10/26/22 11:13 AM) 70 bpm (10/26/22 8:03 AM) Body Mass Index [18.5-24.99 kg/m2] 21.56 kg/m2 (10/21/22 8:59 PM) 22.04 kg/m2 (10/21/22 12:14 PM) Blood Pressure [90-138/55-84 mm Hg] 110/53mm Hg (10/26/22 4:15 PM) 99/54mm Hg (10/26/22 11:13 AM) 117/65mm Hg (10/26/22 8:03 AM) Respiratory Rate [16-30 br/min] 18 br/min (10/26/22 4:15 PM) 18 br/min (10/26/22 11:13 AM) 20 br/min (10/26/22 9:11 AM) Temperature [96.8-100.4 DegF] 98.0 DegF (10/26/22 4:15 PM) 97.9 DegF (10/26/22 11:13 AM) 97.9 DegF (10/26/22 6:00 AM) Liters per Minute 2 L/min (10/23/22 6:16 AM) Mode of Delivery (Oxygen) Room air (10/26/22 4:15 PM) Room air (10/26/22 11:13 AM) Room air (10/26/22 6:00 AM) Blood pressure sites Arm, left (10/26/22 4:15 PM) Arm, right (10/26/22 11:13 AM) Arm, left (10/26/22 8:03 AM) Temperature Route Oral (10/26/22 4:15 PM) Oral (10/26/22 11:13 AM) Oral (10/26/22 6:00 AM) Dry Weight 58.7 kg (10/21/22 8:59 PM) 60 kg (10/21/22 12:18 PM) 60 kg (10/21/22 12:14 PM) Weight Obtained Via Bed scale (10/21/22 8:59 PM) Patient/family stated (10/21/22 12:14 PM) Dry Weight Obtained Via Patient/family s tated (10/21/22 12:14 PM) Social History Social History Type Response Smoking Status Former smoker; Tobac co user in household: No; Other: Quit 30 years ago; Started at 16 YO 1/2 pack daily; entered on: 05/31/17 Sex Admission evaluation note * Florentino Adorno DO W: PERFORM, MODIFY Event Display: Admission Note Authored Date: [id number] Patient: ??ERNESTINA ECHEVARRIA ? Age:??82 Years?Sex:??Female?:??1940?? Chief Complaint/Reason for Consultation Shortness of Breath History of Present Illness Ms. Ernestina Echevarria is an 82-year-old lady with medical history notable for atrial fibrillation on Eliquis, asthma, prior breast cancer, chronic kidney disease, and anemia who presented to the emergencydepartment with shortness of breath. ?? Mrs. Echevarria was discharged on 10/15 after being hospitalized for COVID-19 and superimposed multifocal pneumonia.?? She has since follow-up with her primary care physician and was noted that she had developed oral thrush and that her breathing was still challenging, though oxygen saturation remainedat 98%.?? She was ordered for oral nystatin on 10/19/2022.?? With her ongoing shortness of breath, she ultimately presented to the emergency department on 10/21/2022 with reported hypoxia at home (oxygensaturation 88% on home monitor).?? Since her discharge, has??felt a general malaise and has not been as active??as typical.?? This has been further complicated by??the development of thrush??decreasing her oral intake due to significant discomfort in her mouth.?? She feels generally unwell??and given her ongoing symptoms presented to the emergency department.?? Her daughter who lives out of [facility] attempted to??encourage her to??mobilize with more walking, even moving about the house, however she has been somewhat reticent to do so.?? On initial evaluation,??is resting comfortably in bed, does have a cough and endorses some shortness of breath as well as pain secondary to oral thrush.?? Does not??have any chest pain.?? Does feel somewhat dehydrated. ?? In the emergency department, vitals notable for tachycardia up to 136 bpm.?? Blood pressure remained stable and she was saturating well on room air.?? Tmax 98.5 ??F.?? EKG with supraventricular tachycardia and frequent PVCs and ST depression in septal leads.?? Rate of 134 bpm.?? Leukocytosis present with WBC 10.2 (9.6 neutrophils), anemia with hemoglobin 8.0 (down from 10.1 on 10/15), hyperkalemia with potassium 5.8, hyperchloremia with chloride 108, bicarb 21, glucose 132, BUN 36/creatinine 1.3 (apparent baseline 0.9???1.2), NT proBNP 888, high-sensitivity troponin 27 followed by 23, and estimated creatinine clearance 30.49.?? Plain film of chest with persistent but significant improvement in multifocal pneumonia through the left lung.?? While in the emergency department, received calcium gluconate, 1 L bolus of LR, and was ordered for Lokelma??which she did not receive. Review of Systems A full review of systems was completed and is otherwise negative except as mentioned in history of present illness. Objective Vital Signs?? Temperature: 97.8 DegF (10/22/22 06:07:00) Temperature Route: Oral (10/22/22 06:07:00) Pulse Rate: 89 bpm (10/22/22 06:07:00) Respiratory Rate: 18 br/min (10/22/22 06:07:00) Systolic Blood Pressure: 123 mm Hg (10/22/22 06:07:00) Diastolic Blood Pressure: 71 mm Hg (10/22/22 06:07:00) Blood pressure sites: Arm, left (10/22/22 06:07:00) Mean Arterial Pressure: 88 mm Hg (10/22/22 06:07:00) Pulse Pressure: 52 mm Hg (10/22/22 06:07:00) Oxygen Saturation: 100 % (10/22/22 06:07:00) Mode of Delivery (Oxygen): Room air (10/22/22 06:07:00) Early Warning Score: 5 (10/22/22 06:07:36) ? Physical Exam General:??Alert, in no acute cardiopulmonary distress. Mental Status:??Normal affect. Responding appropriately to questions. HEENT:??Normocephalic. Respiratory:??Mild wheezing on exam.?? Dry cough. Cardiovascular:??Rapid, irregularly irregular rhythm, no murmurs, rubs, or gallops.?? Gastrointestinal:??Abdomen soft, nontender, nondistended, bowel tones p??since her discharge, has??resent. No hepatosplenomegaly appreciated. Neurologic:??Cranial nerves II-XII grossly intact. Moves all extremities spontaneously. Extremities:??No edema. Musculoskeletal:??No gross deformities. Assessment/Plan Assessment:??Ms. Ernestina Echevarria is an 82-year-old lady with medical history notable for atrial fibrillation on Eliquis, asthma, prior breast cancer, chronic kidney disease, and anemia who presented to the emergency department with shortness of breath.?? On presentation, saturating well on room air. ??Greatest concerns were ongoing atrial fibrillation with rapid ventricular response??as well as??hyperkalemia. ??Now admitted for further evaluation and management. ?? Atrial fibrillation with RVR (I48.91):?? Longstanding atrial fibrillation,??presented with rapid ventricular response, heart rate in the 130???150 bpm range. Does not appear to be in significant distress.?? Endorsed having missed her medications. ??Also slightly dehydrated. Reviewed medications,??patient reports taking amiodarone??20 mg in the morning, 100 mg in the evening. --??This is in contrast??to most recent cardiology note, would??curbside??cardiology (follows with Dr. Eric)??and??clarify dosing??prior to discharge. ?? Plan: ?Continue home regimen ?IV fluid resuscitation ?bus monitor ?? Dehydration: Elevated serum creatinine (R79.89):?? Hyperkalemia (E87.5):?? Poor oral intake in setting of thrush. ??Patient endorses minimal fluids ?Appears to have mild CKD at baseline,??creatinine slightly worse than typical. Suspect dehydration in the setting. ?? Plan: ?Additional IV fluid resuscitation ??? Lokelma 10 g ?Monitor electrolytes ?Monitor intake/output ??? Encourage oral intake ??? Treat underlying thrush ?? Cough: Shortness of breath (R06.02):?? This is likely residual from??COVID-19 and bacterial pneumonia. Does seem to be recovering, albeit slowly. Procalcitonin??low,??chest x-ray improved. Shortness of breath is likely also exacerbated by??atrial fibrillation??with RVR. ?? Plan: ??? Reassurance ?Treat symptomatically ?Early mobilization ??? Treat atrial fibrillation with RVR ??? Continue home equivalent of inhalers ?? Oral thrush (B37.0):?? Likely in setting of steroid inhalers. Has been quite painful, decreased oral intake because of this. ?? Plan: ?Continue with nystatin ??? Encourage oral intake ?Further education on steroid inhalers ?? Headache (R51.9):?? Patient has tension type headache in the emergency department. ?? Plan: ??? Tylenol ?? Anemia (D64.9):?? Chronic condition,??appears stable. ?? Plan: ??? Monitor, outpatient follow-up if need be ?? Quality Measures: VTE Prophylaxis:??On Eliquis Code Status:??Full Code Ongoing Medical Necessity:??Multiple medical concerns Discharge Planning:??Home, pending further evaluation Family: Patient's ??has??dementia,??contacted her daughter, Doreen and updated her on admission. Patient seen and evaluated on 10/21/2022.?? Histories Allergies Allergies ?(Active and Proposed Allergies Only) Augmentin? (Severity: Unknown severity, Onset: Unknown) ?Reactions: nausea ? Past Medical History/Problem List Active Problems??(31) Abdominal hernia Abnormal urine color Adenomatous polyp of colon Allergic rhinitis Anemia Anxiety Asthma Atrial fibrillation and flutter Bilateral nephrolithiasis Bladder stones Breast pain, left CAP (community acquired pneumonia) Cough COVID-19 h/o Hypertension H/O sebaceous cyst Hematuria Hiatal hernia with gastroesophageal reflux History of basal cell carcinoma of skin Hx of breast cancer Left-sided chest wall pain Localized osteoarthritis of knee LUQ abdominal pain Oral thrush Osteoarthritis of left knee Osteoporosis Popliteal pain Rotator cuff syndrome of left shoulder Shortness of breath Trigger middle finger Wrist injury ? Past Surgical History Upper Endoscopy: 10/14/15 left Cataract extraction: 12/19/14 Right Cataract extraction: 10/31/14 [place] lymph node biopsy: 01/19/14 Left breast radioactive seed localization lumpectomy: 11/14/13 Pulmonary function test: 09/25/11 dobutamine Echoacrdiogram: 07/26/09 holter: 07/26/09 Pulmonary function test: 06/25/08 CT thorax: 06/08/08 CT of thorax: 06/07/08 Bone density scan: 11/11/06 Appendectomy Hysterectomy ? Family History Mother (): Arthritis; Heart attack ?05-MAR-2014 20:58:42<$>; Hypertension Father (): Alcoholism Sister: Asthma Sister: Asthma Sister (): Cancer of breast ? Social History Lives independently , has dementia Remote history of tobacco use Medications Home Medications Albuterol (Albuterol (Eqv-Ventolin HFA) 90 mcg/inh inhalation aerosol)?2?puff(s)?Inhalation?Every 6 hours amiODARONE (amiodarone 200 mg oral tablet)?See Instructions?1 tablet in morning, 0.5 tablet in evening apixaban (Eliquis 5 mg oral tablet)?1?tab(s)?5?Milligram?By Mouth?2 times a day Benzonatate (benzonatate 100 mg oral capsule)?1?capsule?100?Milligram?By Mouth?3 times a day?for 7?Days Citalopram (citalopram 20 mg oral tablet)?TAKE 1 TABLET BY MOUTH EVERY DAY Famotidine (famotidine 20 mg oral tablet)?20?Milligram?1?tablet?By Mouth?2 times a day Fluticasone-Salmeterol (Advair Diskus 500 mcg-50 mcg inhalation powder)?1?inhalation?Inhalation?2 times a day?rinse mouth and throat after use Gabapentin (gabapentin 100 mg oral capsule)?100?Milligram?1?capsule?By Mouth?2 times a day?TAKE 1 CAPSULE BY MOUTH 3 TIMES A DAY FOR 30 DAYS Losartan (losartan 25 mg oral tablet)?1?tab(s)?25?Milligram?By Mouth?Daily Metoprolol (Metoprolol Tartrate 50 mg oral tablet)?0.5?tab(s)?25?Milligram?By Mouth?2 times a day Montelukast (montelukast 10 mg oral tablet)?10?Milligram?1?tablet?By Mouth?Daily Nystatin (nystatin 354641 u/ml oral suspension)?5?Milliliter?500,000?unit(s)?By Mouth?4 times a day?for 7?Days?swish and swallow Pantoprazole (pantoprazole 40 mg oral delayed release tablet)?TAKE 1 TABLET BY MOUTH EVERY DAY ? EKG study * Event Display: ECG 12-Lead Authored Date: Please click on pdf link to open report * Event Display: ECG 12-Lead Authored Date: Ventricular Rate: 98 BPM Atrial Rate: 127 BPM QRS Duration: 70 ms Q-T Interval: 366 ms QTC Calculation(Bazett): 467 ms R [place]: 32 degrees T [place]: 20 degrees Atrial fibrillation Septal infarct , age undetermined Abnormal ECG When compared with ECG of 21-OCT-2022 22:04, MANUAL COMPARISON REQUIRED, DATA IS UNCONFIRMED Confirmed by EMIR CABALLERO MD ([id number]) on 10/26/2022 8:37:42 AM [place]: EMIR CABALLERO MD * Event Display: EKG Authored Date: * Event Display: EKG Authored Date: * Event Display: ECG 12-Lead Authored Date: Please click on pdf link to open report * Event Display: ECG 12-Lead Authored Date: Ventricular Rate: 124 BPM Atrial Rate: 153 BPM QRS Duration: 86 ms Q-T Interval: 318 ms QTC Calculation(Bazett): 456 ms R [place]: 28 degrees T [place]: -1 degrees Atrial fibrillation with rapid ventricular response with premature ventricular or aberrantly conducted complexes Nonspecific T wave abnormality Abnormal ECG When compared with ECG of 21-OCT-2022 12:18, Minimal criteria for Septal infarct are no longer Present Nonspecific T wave abnormality has replaced inverted T waves in Anterior leads Confirmed by CALVIN WHEELER MD ([id number]) on 10/24/2022 12:22:52 PM [place]: CALVIN WHEELER MD * Event Display: ECG 12-Lead Authored Date: Please click on pdf link to open report * Event Display: ECG 12-Lead Authored Date: Ventricular Rate: 134 BPM QRS Duration: 76 ms Q-T Interval: 290 ms QTC Calculation(Bazett): 433 ms R [place]: 39 degrees T [place]: -1 degrees Supraventricular tachycardia with frequent Premature ventricular complexes Septal infarct , age undetermined Abnormal ECG When compared with ECG of 13-OCT-2022 23:13, Premature ventricular complexes are now Present Premature supraventricular complexes are no longer Present TN interval has decreased Vent. rate has increased BY 47 BPM Septal infarct is now Present Inverted T waves have replaced nonspecific T wave abnormality in Anterior leads Confirmed by MARIAH BARBA MD ([id number]) on 10/21/2022 4:06:24 PM [place]: MARIAH BARBA MD Cardiology * Event Display: Cardiac Rhythm Strips Authored Date: * Event Display: Cardiac Rhythm Strips Authored Date: Hospital Progress note * Nithin Brandt: PERFORM, VERIFY, MODIFY, SIGN Event Display: Progress Note Hospital Authored Date: Patient: ERNESTINA ECHEVARRIA Age: 82 years Sex: Female : 1940 Associated Diagnoses: None Author: Nithin Brandt Findings Problem Related to Alteration in Respiratory Function (new) : Alteration in Respiratory Function/new 10/26/2022 9:15 EDT Alteration in Resp Status Related to Other: Lung Abscess Goals & Outcomes, Respiratory Pt will maintain/resume baseline physical assessment, Pt will maintain adequate nutritional intake, Pt will maintain/resume normal fluid/electrolyte balance, Pt willnot develop complications r/t immobility, Pt will demonstrate proper technique w/self care procedures Interventions, Respiratory Assess for and report S&S of respiratory distress, Position for comfort & optimal oxygenation, Initiate pulmonary rehab nurse consult, Monitor sputum color & consistency. Report changes to MD, Teach/encourage use of incentive spirometer, Teach the proper use of inhalers, Teach purse lip breathing as needed for breathing retraining Goals/Interventions, Respiratory Yes Respiratory, Problem Start 10/26/2022 9:16 Reviewed Plan with, Respiratory Patient Patient Progression, Respiratory Plan Initiation . Nursing Data Respiratory/Pulmonary Data. : Respiratory/Pulmonary Data. 10/26/2022 8:11 EDT Respiratory Symptoms Dyspnea with exertion Left Lower Lobe Breath Sounds Coarse crackles Right Lower Lobe Breath Sounds Coarse crackles Respiratory Treatment(s) Cough and deep breathe, Incentive spirometry, Updraft Nebulizer Therapy/MDI Respiratory WNL except . Vital Signs : VITAL SIGNS SECTION 10/26/2022 11:13 EDT Temperature 97.9 DegF Temperature Route Oral Pulse Rate 57 bpm Respiratory Rate 18 br/min Systolic Blood Pressure 99 mm Hg Diastolic Blood Pressure 54 mm Hg L Blood pressure sites Arm, right Mean Arterial Pressure 69 mm Hg Pulse Pressure 45 mm Hg Oxygen Saturation 97 % Mode of Delivery (Oxygen) Room air . Evaluation Head: Normocephalic, atraumatic Eyes: Anicteric, vision grossly intact. Ears: no auricular pain, erythema or exudate observed. Nose: nares patent Throat: Trachea midline. no erythema or exudates observed. Tongue midline, anterioposterior pillarsrise symmetrically, Chest rise symmetrical. Breathing is non-labored. No use of accessory muscles or cyanosis observed.No clubbing observed. Bibasilar crackles heard on auscultation, SpO2 96-100% on RA. Pt endorses shortness of breath with exertion, pulm rehab consult pending for home O2 eval. Pt on telemetry, normal sinus rhythm, Pt denies chest pain or discomfort. Pt afebrile. S1,S2 heard,on auscultation. Peripheral pulses present and equal bilaterally. No edema observed, pt skin observed to be warm and dry, no JVD observed. Positive bowel sounds x4, pt denies n/v/d. Pt constipated, refusing bowel medications, MD aware. Pton regular diet, poor oral intake, d/t oral thrush, pt given ordered nystatin swish and swallow. Medications taken crushed in applesauce. Pt denies abdominal pain, no tenderness to palpation. Pt voiding in bathroom, urine clear, yellow. Pt denies dysuria, urgency, frequency, hesitancy or difficulty urinating, no bladder distension observed. Activity as tolerated. Positive movement and ROM in all 4 extremities. No joint tenderness or swelling observed. Skin in tact, anicteric. Pt repositions independently for decubitus prevention Patient alert and oriented x3, speech clear. CN II-XII grossly intact. Pupils equal round and reactive to light, EOMI, no nystagmus observed. Positive motor function x4 extremities, motor function symmetrical. Sensation intact bilaterally. Pt denies pain Plan of care initiated, call purcell within reach, will continue to monitor for comfort and safety. . * Silverio HATFIELD, Gomez: PERFORM, SIGN, VERIFY Event Display: Progress Note Hospital Authored Date: [id number] Patient: ERNESTINA ECHEVARRIA Age: 82 years Sex: Female : 1940 Associated Diagnoses: None Author: Gomez Sawyer RN Findings Evaluation Pt is A&Ox4, able to make needs known. Denies having any pain. Received all scheduled meds. Sent out sputum sample. Pt is resting in bed, bed in lowest position, and safety measures in place. SeeCIS for further details. . Discharge Information Rehabilitation Discharge : Rehab Discharge Index 10/23/2022 6:25 EDT Comments on treatment indicated 82 F admitted 2' SOB, A fib with RVR and Hyperkalemia. WBAT. Skilled PT for amb c RW, transfers, strength, balance, safety. Rec rehab Walker: distance 10-20 Distance pt will ambulate > 10 feet c RW Full chart review completed Yes Other findings see comment Plan of care PT Gait training, Transfer training, Therapeutic exercise, Functional Activities, Balance training, Neuromuscular education * Olu SHAY, Dariela: PERFORM Event Display: Progress Note Hospital Authored Date: [id number] Patient: ??ERNSETINA ECHEVARRIA ? Age:??82 Years?Sex:??Female?:??1940?? Subjective No overnight events Today: vitally stable and asymptomatic. Cough has improved. PT recommended rehab - patient refusing, says she wants to??go home, lives with . Will place pulm rehab consult as patient becomes SOB on walking to assess for ambulatory oxygen needs. Review of Systems An extensive review of system was conducted and everything was negative except ones mentioned above Allergies Allergies ?(Active and Proposed Allergies Only) Augmentin? (Severity: Unknown severity, Onset: Unknown) ?Reactions: nausea ? Objective Vital Signs?? Temperature: 99.1 DegF (10/25/22 11:41:00) Temperature Route: Oral (10/25/22 11:41:00) Pulse Rate: 56 bpm (10/25/22 11:41:00) Respiratory Rate: 17 br/min (10/25/22 11:41:00) Systolic Blood Pressure: 106 mm Hg (10/25/22 11:41:00) Diastolic Blood Pressure:??38 mm Hg??Low (10/25/22 11:41:00) Blood pressure sites: Arm, right (10/25/22 11:41:00) Mean Arterial Pressure: 61 mm Hg (10/25/22 11:41:00) Pulse Pressure: 68 mm Hg (10/25/22 11:41:00) Oxygen Saturation: 96 % (10/25/22 11:41:00) Mode of Delivery (Oxygen): Room air (10/25/22 11:41:00) Early Warning Score: 4 (10/25/22 11:45:15) ? Physical Exam General: Patient in no acute distress?? HEENT: normocephalic, atraumatic?? Respiratory:??Coarse bibasilar rales Adequate respiratory rate and effort on room air.?? CVS: regular rate and rhythm, S1 and S2 present, no murmurs, rubs or gallops. No JVD.?? Abdomen: soft, non tender, non distended, bowel sounds present, no organomegaly.?? Extremities: no cyanosis, pulses present and equal bilaterally. . No edema noted b/l.?? Neuro: alert and oriented x3. Cranial nerves II-XII grossly intact. Moving all extremities spontaneously. Normal tones, following simple commands.?? _ Inpatient Medications Medications (26) Active SCHEDULED: (15) Amiodarone 200 mg Tablet (amiodarone 200 mg oral tablet) ??200 mg, By Mouth, Daily Amiodarone 200 mg Tablet (amiodarone 200 mg oral tablet) ??100 mg, By Mouth, Daily at supper Apixaban 2.5 mg Tablet (Eliquis) ??2.5 mg, By Mouth, 2 times a day Breo Ellipta 200 mcg / 25 mcg Inhaler (Breo Ellipta 200 mcg-25 mcg Inhaler) ??1 puffs, Inhalation, Daily Citalopram 20 mg Tablet (citalopram 20 mg oral tablet) ??20 mg, By Mouth, Daily Diltiazem 180 mg/24 hour CD Capsule (Cardizem CD 180 mg/24 hours oral capsule, extended release) ??360 mg, By Mouth, Daily Doxycycline 100 mg Tablet (Doxycycline Tablet) ??100 mg, By Mouth, Daily Gabapentin 100 mg Capsule (gabapentin 100 mg oral capsule) ??100 mg, By Mouth, 2 times a day Metoprolol 25mg Tablet (metoprolol 25 mg oral tablet) ??25 mg, By Mouth, 2 times a day Montelukast 10 mg Tablet (montelukast 10 mg oral tablet) ??10 mg, By Mouth, Daily NaCl 0.9% Flush 3ml (NaCL 0.9% Flush) ??3 mL, IV Push, Every 8 hours Nystatin 100,000 units/mL Susp UD (Nystatin 100,000 Units/mL Liquid) ??500,000 units 5 mL, Swish and Swallow, 4 times a day Pantoprazole 40 mg EC Tablet (pantoprazole 40 mg oral delayed release tablet) ??40 mg, By Mouth, Daily Polyethylene Glycol 17 Gm Powder (MiraLax Powder) ??17 Gm 1 pack/packet, By Mouth, Daily Spiriva Respimat 2.5 mcg Inhaler (Spiriva Respimat Inhaler) ??2 puffs, Inhalation, Daily CONTINUOUS: (0) PRN: (11) Acetaminophen 325 mg Tablet (Acetaminophen Tablet) ??650 mg, By Mouth, Every 4 hours Albuterol 90mcg/Inhalation Inhaler HFA (Ventolin 90 mcg Inhaler) ??180 mcg 2 puffs, Inhalation, Every 4 hours Benzonatate 100 mg Capsule (Benzonatate Capsule) ??200 mg, By Mouth, 3 times a day Benzonatate 100 mg Capsule (Tessalon Perles) ??100 mg, By Mouth, 3 times a day Bisacodyl 10 mg Suppository (Bisacodyl Supp) ??10 mg 1 supp, Rectally, Daily Dextromethorphan-Guaifenesin 20 mg-200 mg/10 mL Liqu UD (Robitussin DM Liquid) ??10 mL, By Mouth, Every 4 hours Lidocaine 2% Viscous Solution UD (15mL) (Lidocaine 2% Viscous Liquid) ??10 mL, Swish and Spit, Every 4 hours Melatonin 3 mg Tablet (Melatonin Tablet) ??3 mg, By Mouth, Daily at bedtime NaCl 0.9% Flush 3ml (NaCL 0.9% Flush) ??3 mL, IV Push, Every 8 hours Polyethylene Glycol 17 Gm Powder (MiraLax Powder) ??17 Gm 1 pack/packet, By Mouth, Daily Senna 8.6 mg / Docusate 50 mg tablet (Docusate/Senna Tablet) ??1 tablet, By Mouth, 2 times a day ? Results Recent Labs BACTERIOLOGY MRSA PCR Result Positive, MRSA target DNA detected. ()?? 10/24/2022 10:04 S Aureus ??PCR Result Positive, SA target DNA detected. ()?? 10/24/2022 10:04 ?? BLOOD COUNT & DIFF WBC 11.7 k/mm3 (High)?? 10/25/2022 04:46 RBC 2.56 m/mm3 (Low)?? 10/25/2022 04:46 Hgb 8.1 Gm/dL (Low)?? 10/25/2022 04:46 Hct 24.7 % (Low)?? 10/25/2022 04:46 MCV 96.5 femtoliters ()?? 10/25/2022 04:46 MCH 31.6 pg ()?? 10/25/2022 04:46 MCHC 32.8 g/dL (Low)?? 10/25/2022 04:46 Platelet Count 142 k/mm3 (Low)?? 10/25/2022 04:46 RDW-SD 51.4 femtoliters (High)?? 10/25/2022 04:46 MPV 10.5 femtoliters ()?? 10/25/2022 04:46 Nucleated RBC (Automated) 0.0 #/100 WBC'S ()?? 10/25/2022 04:46 Abs. NRBC 0.0 k/mm3 ()?? 10/25/2022 04:46 ?? CHEM GENERAL Sodium 134 mmol/L ()?? 10/25/2022 04:46 Potassium 4.3 mmol/L ()?? 10/25/2022 04:46 Chloride 103 mmol/L ()?? 10/25/2022 04:46 Bicarbonate Level 22 mmol/L ()?? 10/25/2022 04:46 Anion Gap 9 ()?? 10/25/2022 04:46 Glucose Level 90 mg/dL ()?? 10/25/2022 04:46 BUN 22 mg/dL ()?? 10/25/2022 04:46 Creatinine-Blood 0.9 mg/dL ()?? 10/25/2022 04:46 Estimated GFR Creatinine 63 ML/MIN/1.73 M2 ()?? 10/25/2022 04:46 Calcium 8.5 mg/dL (Low)?? 10/25/2022 04:46 Phosphorus 3.1 mg/dL ()?? 10/25/2022 04:46 Magnesium 1.9 mg/dL ()?? 10/25/2022 04:46 ?? URINE OTHER Est Creatinine Clearance 44.04 mL/min ()?? 10/25/2022 06:01 ? CBC, CBC w/Diff?? CBC?? WBC:??11.7 k/mm3??High (04:46) RBC:??2.56 m/mm3??Low (04:46) Hct:??24.7 %??Low (04:46) RDW-SD:??51.4 femtoliters??High (04:46) Nucleated RBC (Automated): 0 #/100 WBC'S (04:46) Abs. NRBC: 0 k/mm3 (04:46) ? Coagulation Profile?? No qualifying data available. ?? Assessment/Plan 82-year-old female??with history of A-fib on Eliquis, asthma, prior breast cancer, CKD, recent COVID with superimposed multifocal pneumonia??(10/15) who presented to [facility] on 5/3 for evaluation of shortness of breath found to have RAMONA and A-fib with RVR which has since resolved. ??CT done for ongoing c ough/shortness of breath on 10/24 revealed left lower lobe cavitary lung lesion evaluated by pulmonology currently on doxycycline for 21 days. ??CT abdomen/pelvis showed bilateral intramuscular hematomas and rectus muscle with stable H&H. ?? Shortness of breath Cough: Resolving Left lower lobe cavitary lesion CT chest 10/24 History of asthma: not in exacerbation Recent COVID-19 infection with multifocal pneumonia 10/15, continues to have cough and shortness of breath, no oxygen requirements. CT chest done showed decreasing consolidative opacities throughout the lungs which are improved than prior, cavitary lesion at left lung base concerning for infectious/inflammatory process Evaluated by pulmonology ?? Plan -Doxycycline for total of 21 days -If develops recurrent infectious symptoms, broaden to levofloxacin and metronidazole -Repeat CT chest with IV contrast in 6 to 8 weeks to document resolution of consolidations -On discharge change home Advair discus 500 to Advair HFA 230-21 mcg 2 puffs inhaled twice daily with spacer. -Continue home Spiriva, albuterol needs needed and singular daily for moderate persistent asthma -Outpatient follow-up with pulmonary with Dr. Bowens scheduled for 01/16 at 11:20 AM -Pulmonary rehab nurse consult placed to assess for oxygen need with exertion, patient continues cecilia short of breath on exertion -Follow-up on fungal, TB, sputum cultures -As needed Carly Szymanski -Continue montelukast 10 mg daily ?? Anemia: Stable Bilateral rectus hematoma on CT H&H lower than baseline, baseline around 10 currently between 7 and 8. ??No active signs of bleeding CT abdomen and pelvis with bilateral intramuscular hematomas, patient denies any trauma. ??Bruisingpresent. ?? Plan -Monitor H&H -Continue anticoagulation for now, if H&H continues to drop or other signs and symptoms of bleeding/hematoma expansion can discontinue after discussion with patient -Outpatient follow-up with PCP, might need endoscopy/colonoscopy -Continue pantoprazole 40 mg daily ?? A-fib with RVR: Resolved Elevated troponin: Stable s/p IV fluids A-fib with RVR suspected in the setting of dehydration ?? Plan -Continue home regimen of amiodarone 200 mg in the morning, 100 mg in the evening -Continue diltiazem 360 mg daily Continue metoprolol 25 twice daily Continue Eliquis 2.5 mg twice daily given age and weight bus monitor -We will need to confirm patient's home med with Dr. Llanes prior to DC ?? RAMONA: Resolved Hyperkalemia: Stable Suspect in the setting of dehydration secondary to poor p.o. intake Creatinine peaked at 1.3, now at baseline ?? Plan BUN/creatinine daily Encourage oral intake ?? Oral thrush Suspect in the setting of steroid inhalers and antibiotics ?? Plan Continue with nystatin Switch home inhalers from Advair Diskus to Advair HFA ?? Other stable issues Depression: Continue citalopram 20 mg daily Neuropathy: Continue gabapentin 100 mg twice daily ?? Quality Measures: ??VTE Prophylaxis: On Eliquis ??Code Status: Full Code ??Diet: Regular Diet Ongoing medical disposition: PT recommended rehab, patient declining and wants to go home. ??Pulm rehab consult pending to evaluate for oxygen need with exertion as she is symptomatic while walking. ??Will need to clarify with patient's daughter Doreen regarding disposition however patient can make her own decisions. ? Patient case and plan discussed with ??Yuki?? Dariela Raines MD Internal Medicine PGY-3 Pager: [phone] * Yuki SHAY, Gabriel A: PERFORM Event Display: Progress Note Hospital Authored Date: Attending attestation:??I have evaluated and examined the patient??on the day of service. I have discussed the care and management with the medical team. Agree with written findings, assessment and plan as outlined in 's note. Note * Kaylie Almanza RN: PERFORM Event Display: Discharge/Transfer Note Hospital Authored Date: [id number] Nursing Discharge Note Entered On: 10/26/2022 18:01 EDT Performed On: 10/26/2022 18:00 EDT by Kaylie Almanza RN Nursing Discharge Note 2 Discharge Time : 10/26/2022 17:20 EDT Discharge Level of Care at Discharge : senior care facility Discharge Nursing Homes/Rehab Facilities : [facility] Patient Left Unit Via : Ambulance Patient Accompanied Off Unit with : Ambulance/Chair Van Personnel Handover Given to Transport Personnel : Yes DC Instructions Provided & Signed by Pt : No Patient Understands D/C Instructions : No Patient Instructions Discharge Signed : No Instructions for Discharge Comments : paperwork completed by case loader operator, all D/C instructions given to [facility] staff to handover to rehab staff Did Pt have Specialty Bed or Wound Vac : Kaylie Daniels RN 10/26/2022 18:00 EDT * Pollo SHAY, Kay Bustos: MODIFY, PERFORM Event Display: Discharge/Transfer Note Hospital Authored Date: Patient: ??ERNESTINA ECHEVARRIA ? Age:??82 Years?Sex:??Female?:??1940?? Patient Information Discharge Location: Primary Care Physician: Mary SHAY, Bridgette Archibald Admit Date/Time: 10/21/22 15:20 Discharge Disposition Discharge Disposition: [facility] Facility[facility]Rehab Discharge Diagnosis Anemia (D64.9) Atrial fibrillation with RVR (I48.91) Elevated serum creatinine (R79.89) Headache (R51.9) Hyperkalemia (E87.5) Oral thrush (B37.0) Shortness of breath (R06.02) Allergic rhinitis Asthma CAP (community acquired pneumonia) Hiatal hernia with gastroesophageal reflux ?? _ Discharge Medications Albuterol (Albuterol (Eqv-Ventolin HFA) 90 mcg/inh inhalation aerosol)?2?puff(s)?Inhalation?Every 6 hours amiODARONE (amiodarone 200 mg oral tablet)?See Instructions?1 tablet in morning, 0.5 tablet in evening apixaban (Eliquis 5 mg oral tablet)?1?tab(s)?5?Milligram?By Mouth?2 times a day Benzonatate (benzonatate 100 mg oral capsule)?1?capsule?100?Milligram?By Mouth?3 times a day?as needed?Cough Citalopram (citalopram 20 mg oral tablet)?TAKE 1 TABLET BY MOUTH EVERY DAY Diltiazem (Cardizem CD 180 mg/24 hours oral capsule, extended release)?360?Milligram?2?capsule?By Mouth?Daily Doxycycline (Doxycycline Tablet)?100?Milligram?By Mouth?Daily?for 19?Days Durable Medical Equipment (Aerochamber w/Mask (Large))?See Instructions?For use with Advair HFA Famotidine (famotidine 20 mg oral tablet)?20?Milligram?1?tablet?By Mouth?2 times a day Fluconazole (fluconazole 100 mg oral tablet)?1?tab(s)?100?Milligram?By Mouth?Daily?for 13?Days Fluticasone-Salmeterol (Advair HFA 230 mcg / 21 mcg)?2?puff(s)?Inhalation?2 times a day?Use with spacerrinse mouth and throat after use Gabapentin (gabapentin 100 mg oral capsule)?100?Milligram?1?capsule?By Mouth?2 times a day?TAKE 1 CAPSULE BY MOUTH 3 TIMES A DAY FOR 30 DAYS Losartan (losartan 25 mg oral tablet)?1?tab(s)?25?Milligram?By Mouth?Daily Metoprolol (Metoprolol Tartrate 50 mg oral tablet)?0.5?tab(s)?25?Milligram?By Mouth?2 times a day Montelukast (montelukast 10 mg oral tablet)?10?Milligram?1?tablet?By Mouth?Daily Pantoprazole (pantoprazole 40 mg oral delayed release tablet)?TAKE 1 TABLET BY MOUTH EVERY DAY Tiotropium?See Instructions??2 puffs??Inhalation Daily (use two inhalations of one capsule for each dose) ? Medications Started Fluconazole (fluconazole 100 mg oral tablet)?1?tab(s)?100?Milligram?By Mouth?Daily?for 13?Days Doxycycline (Doxycycline Tablet)?100?Milligram?By Mouth?Daily?for 19?Days Medications Discontinued Advair Discus 500 Doses Changed None Allergies Allergies ?(Active and Proposed Allergies Only) Augmentin? (Severity: Unknown severity, Onset: Unknown) ?Reactions: nausea ? PCP Follow-Up/Heads-Up 1. Inhaler switched from Advair discus 500 to Advair HFA with spacer due to oral thrush 2. 21 day course doxycycline for cavitary pneumonia, concerning for MRSA given positive nasal swab - Pulm follow up scheduled 3. Fluconazole for 14 day course for resistant thrush (did not resolve with Nystatin swish and spit) ? Future Appointments Wednesday. 2022 1:00 PM EDT ?? With: Juan SHYA, Miguel Carrasco Where: [facility] [address] [place] [address]- 2022 1:00 PM EDT ?? With: Where: [facility] [address] [place] [address], [address] [place] [address]- 2022 1:30 PM EDT ?? With: Dawson KELLEY, Whitney Joiner Where: [facility] [address] [place] [id number]- Wednesday 11:20 AM EDT ?? With: Kwan SHAY, Renata Trejo Where: [facility] [address] [place] [address]- Hospital Course Ernestina is an 82-year-old female with history of A-fib on Eliquis, asthma, prior breast cancer, CKD, recent COVID with superimposed multifocal pneumonia (10/15) who presented to [facility] on 10/21 for evaluationof shortness of breath found to have RAMONA and A-fib with RVR which has since resolved. CT chest donefor ongoing cough/shortness of breath on 10/24 revealed left lower lobe cavitary lung lesion evaluated by pulmonology who recommended doxycycline for [address] abdomen/pelvis showed bilateral intramuscular hematomas and rectus muscle, and continues to have stable H&H and no symptoms. Stable fordischarge to rehab to??continue working with PT and continue doxycycline course. ?? Objective Assessment and Plan ?? Shortness of breath Cough: Resolving Left lower lobe cavitary lesion CT chest 10/24 History of asthma: not in exacerbation Recent COVID-19 infection with multifocal pneumonia 10/15, continues to have cough and shortness of breath, no oxygen requirements. CT chest done showed decreasing consolidative opacities throughout the lungs which are improved than prior, cavitary lesion at left lung base concerning for infectious/inflammatory process MRSA nasal swab positive Evaluated by pulmonology - recommendation for 21 days doxycycline Pulm Rehab - does not require home O2 ?? Plan -Doxycycline for additional??19 days (total of 21 days) -If develops recurrent infectious symptoms, broaden to levofloxacin and metronidazole -Repeat CT chest with IV contrast in 6 to 8 weeks to document resolution of consolidations -On discharge change home Advair discus 500 to Advair HFA 230-21 mcg 2 puffs inhaled twice daily with spacer. -Continue home Spiriva, albuterol??as needed and singular daily for moderate persistent asthma -Outpatient follow-up with pulmonary with Dr. Bowens scheduled for 01/16 at 11:20 AM -Follow-up on fungal, TB, sputum cultures -As needed Laylasalon Perles ?? Anemia: Stable Bilateral rectus hematoma on CT H&H lower than baseline, baseline around 10 currently between 7 and 8. No active signs of bleeding CT abdomen and pelvis with bilateral intramuscular hematomas, patient denies any trauma. Bruising present. ?? Plan -Continue anticoagulation for now, if H&H continues to drop or other signs and symptoms of bleeding/hematoma expansion, can discontinue after discussion with patient -Outpatient follow-up with PCP, might need endoscopy/colonoscopy -Continue pantoprazole 40 mg daily ?? A-fib with RVR: Resolved Elevated troponin: Stable s/p IV fluids A-fib with RVR suspected in the setting of dehydration ?? Plan -Continue home regimen of amiodarone 200 mg in the morning, 100 mg in the evening -Continue diltiazem 360 mg daily -Continue metoprolol 25 twice daily -Continue Eliquis 2.5 mg twice daily given age and weight ?? RAMONA: Resolved Hyperkalemia: Stable Suspect in the setting of dehydration secondary to poor p.o. intake Creatinine peaked at 1.3, now at baseline ?? Plan -Encourage oral fluid intake ?? Oral thrush Suspect in the setting of steroid inhalers and antibiotics Nystatin swish and spit while inpatient, improving but still persistent enough that it is affectingthe patient's appetite ?? Plan -14-day fluconazole course 100mg daily -Switch home inhalers from Advair Diskus to Advair HFA ?? Other stable issues Depression: Continue citalopram 20 mg daily Neuropathy: Continue gabapentin 100 mg twice daily ? Vital Signs?? Temperature: 97.9 DegF (10/26/22 11:13:00) Temperature Route: Oral (10/26/22 11:13:00) Pulse Rate: 57 bpm (10/26/22 11:13:00) Respiratory Rate: 18 br/min (10/26/22 11:13:00) Systolic Blood Pressure: 99 mm Hg (10/26/22 11:13:00) Diastolic Blood Pressure:??54 mm Hg??Low (10/26/22 11:13:00) Blood pressure sites: Arm, right (10/26/22 11:13:00) Mean Arterial Pressure: 69 mm Hg (10/26/22 11:13:00) Pulse Pressure: 45 mm Hg (10/26/22 11:13:00) Oxygen Saturation: 97 % (10/26/22 11:13:00) Mode of Delivery (Oxygen): Room air (10/26/22 11:13:00) Early Warning Score: 4 (10/26/22 11:14:28) ? . Physical Exam Constitutional: Alert, in no distress. Well appearing, upbeat and pleasant. Breathing comfortably. Mental Status: Oriented to person, place and time. Ear, Nose and Throat: Oropharynx clear, mucous membranes moist. Neck: Supple, Full range of motion. Respiratory: Rales bilaterally, breath sounds equal bilaterally, good air movement. Cardiovascular: RRR, no LE edema Gastrointestinal: Abdomen soft, non-tender, non-distended. Neurologic: No focal neurological deficits. Moves all extremities spontaneously. Musculoskeletal: No cyanosis or clubbing. No gross deformities. Normal range of motion. Consultants Pulmonology - Dr. Lee Starks Pending Results AFB Culture w/ AFB Smear, Respiratory ordered on 10/25/2022 Add On Lab Order ordered on 10/21/2022 Add On Lab Order ordered on 10/23/2022 Add On Lab Order ordered on 10/23/2022 Aspergillus Antigen ordered on 10/23/2022 Blood Culture ordered on 10/21/2022 Blood Culture #2 ordered on 10/21/2022 Fungal Culture, Respiratory ordered on 10/25/2022 Sputum Culture w/ Gram Smear ordered on 10/25/2022 Patient Education Titles Using an Inhaler with a Spacer?? Community-Acquired Pneumonia in Adults?? Bacterial Pneumonia?? Depression: Tips to Help Yourself?? Depression?? Follow-Up Appointments Added Follow Up ?Time Frame ?Comments Mary SHAY, Bridgette Archibald?1 week: call to discuss follow up visit Home Health Face to Face ^[facility] Results Discharge Labs BACTERIOLOGY MRSA PCR Result Positive, MRSA target DNA detected. ()?? 10/24/2022 10:04 S Aureus ??PCR Result Positive, SA target DNA detected. ()?? 10/24/2022 10:04 ?? BLOOD COUNT & DIFF WBC 12.4 k/mm3 (High)?? 10/26/2022 00:18 RBC 2.60 m/mm3 (Low)?? 10/26/2022 00:18 Hgb 8.1 Gm/dL (Low)?? 10/26/2022 00:18 Hct 24.9 % (Low)?? 10/26/2022 00:18 MCV 95.8 femtoliters ()?? 10/26/2022 00:18 MCH 31.2 pg ()?? 10/26/2022 00:18 MCHC 32.5 g/dL (Low)?? 10/26/2022 00:18 Platelet Count 157 k/mm3 ()?? 10/26/2022 00:18 RDW-SD 51.2 femtoliters (High)?? 10/26/2022 00:18 MPV 10.6 femtoliters ()?? 10/26/2022 00:18 Nucleated RBC (Automated) 0.0 #/100 WBC'S ()?? 10/26/2022 00:18 Abs. NRBC 0.0 k/mm3 ()?? 10/26/2022 00:18 Abs. Neut 9.6 k/mm3 (High)?? 10/21/2022 14:29 Abs. Lymph 0.2 k/mm3 (Low)?? 10/21/2022 14:29 Abs. [place] 0.3 k/mm3 (Low)?? 10/21/2022 14:29 Abs. Eo 0.0 k/mm3 ()?? 10/21/2022 14:29 Abs. Baso 0.0 k/mm3 ()?? 10/21/2022 14:29 Neut % 94.0 % (High)?? 10/21/2022 14:29 Lymph % 2.2 % (Low)?? 10/21/2022 14:29 [place] % 2.4 % (Low)?? 10/21/2022 14:29 Eos % 0.0 % ()?? 10/21/2022 14:29 Baso % 0.1 % ()?? 10/21/2022 14:29 Retic Count 2.0 % ()?? 10/23/2022 00:31 Retic Count Corrected 1.1 % ()?? 10/23/2022 00:31 Retic Production Index 0.8 % (Low)?? 10/23/2022 00:31 Imm Gran 1.3 % ()?? 10/21/2022 14:29 Abs. Imm Gran 0.1 k/mm3 ()?? 10/21/2022 14:29 ? CARDIAC Nt-Probnp 888 pg/mL (High)?? 10/21/2022 12:52 High Sensitivity Troponin (HSTnT) 23 ng/L (High)?? 10/21/2022 16:09 ?? CHEM GENERAL Sodium 134 mmol/L ()?? 10/25/2022 04:46 Potassium 4.3 mmol/L ()?? 10/25/2022 04:46 Chloride 103 mmol/L ()?? 10/25/2022 04:46 Bicarbonate Level 22 mmol/L ()?? 10/25/2022 04:46 Anion Gap 9 ()?? 10/25/2022 04:46 Glucose Level 90 mg/dL ()?? 10/25/2022 04:46 BUN 22 mg/dL ()?? 10/25/2022 04:46 Creatinine-Blood 0.9 mg/dL ()?? 10/25/2022 04:46 Estimated GFR Creatinine 63 ML/MIN/1.73 M2 ()?? 10/25/2022 04:46 Calcium 8.5 mg/dL (Low)?? 10/25/2022 04:46 Phosphorus 3.1 mg/dL ()?? 10/25/2022 04:46 Magnesium 1.9 mg/dL ()?? 10/25/2022 04:46 LDH 350 units/L (High)?? 10/23/2022 00:31 Iron Level 43 mcg/dL ()?? 10/23/2022 00:31 Iron Binding Capacity, Unsaturated 112 mcg/dL ()?? 10/23/2022 00:31 Ferritin Level 430 ng/mL (High)?? 10/23/2022 00:31 ?? COAG D-Dimer 0.74 mg/L FEU ()?? 10/21/2022 12:52 ? IMMUNOLOGY GENERAL Transferrin 116 mg/dL (Low)?? 10/23/2022 00:31 Haptoglobin 196 mg/dL ()?? 10/23/2022 00:31 ?? MISC. CHEMISTRY Procalcitonin 0.10 ng/mL ()?? 10/23/2022 00:31 Hold Gel Top SPECIMEN DISCARDED AFTER 1 WEEK ()?? 10/26/2022 00:17 ?? URINE OTHER Est Creatinine Clearance 44.04 mL/min ()?? 10/25/2022 06:01 ? Microbiology ?? MRSA PCR Nasal Swab?? Completed?? Source: Swab Body Site: Nares Both Collected Dt/Tm: 10/24/2022 10:04 Last Updated Dt/Tm: 10/24/2022 13:43 ? Imaging(s) ?CT Chest W/ Contrast ?? 10/24/2022 12:35??by Leonardo Taveras MD ?IMPRESSION: ?? Compared to CT chest from 10/14/2022: ?? Overall decreasing consolidative opacities throughout the lungs significantly improved in the left upper lobe and left lower lobe, although perhaps minimally increased in the right lung base. As mentioned on prior CT abdomen and pelvis a 2.2 cm nodule in the left lung base where an area of more confluent consolidation had been previously, which exhibits a new central focus of cavitation. Overall findings are suggestive of a improving infectious/inflammatory process. Continued attention on follow-up is recommended. ?Chest 2 Views Frontal and Lat ?? 10/21/2022 13:30??by Randall Chun MD ?IMPRESSION: ?? Persistent but significant improvement in multifocal pneumonia throughout the left lung. ?Chest Portable ?? 10/23/2022 08:52??by Leonardo Moran MD ?IMPRESSION: ?? Worsening patchy airspace opacity in the left lung. ?CT Abdomen and Pelvis W/O Contrast ?? 10/23/2022 14:10??by Sofie Ramirez MD ?IMPRESSION: ?? 1. Intramuscular hematomas in bilateral rectus muscles in the pelvis, new from 09/25/2022. 2. No evidence of retroperitoneal hematoma or other acute intra-abdominal abnormality. 3. Consolidative and nodular opacities in bilateral lung bases, improved on the left and increased on the right since the CT of 10/14/2022. There has been interval development of cavitation within a nodular opacity in the left base, though the nodule has decreased in size. ? 40??minutes spent on discharge * Ledy Akers MD: PERFORM Event Display: Discharge/Transfer Note Hospital Authored Date: * Laxmi Wade RN: PERFORM, SIGN, VERIFY Event Display: Case Management Discharge Plan Authored Date: Patient: ERNESTINA ECHEVARRIA Age: 82 years Sex: Female : 1940 Associated Diagnoses: None Author: Mauro HATFIELD, Laxmi Maier Discharge Plan Case Management Discharge Plan : Case Management Discharge Plan Data 10/26/2022 14:55 EDT Discharge Level of Care at Discharge senior care facility Discharge Nursing Homes/Rehab Facilities [facility] Discharge Transportation Arranged [facility] [address] [place] [address] Discharge Arranged Transport Date/Time 10/26/2022 16:30 Mode of Transportation Arranged Ambulance Name of Agency #1 [facility] Service Categories #1 Occupational Therapy, Physical Therapy, Fpc Additional Info for D/C Instructions You are being transfered to [facility] today at [address] An ambulance will pick you up and bring you there. Name of Person Notified of Transfer Doreen Alamnza RN, Kaylie Zuniga: PERFORM, MODIFY Event Display: Patient Education/Instruction Authored Date: Inpatient Adult Discharge Instructions [address] [address] Name: ERNESTINA ECHEVARRIA : 1940 Visit: 10/21/2022 15:20:00 Current Date: 10/26/2022 16:25 Account: [id number] Inpatient Adult Discharge Instructions We would like [...] and their families. Surveys are administered by [employer] ?? If further treatment with your primary care physician or another doctor is recommended, it is important for you to keep the appointment. Call your primary care physician or return to the Emergency Department immediately if your condition worsens, fails to improve, or new symptoms develop. If you need to find a doctor, you can call [facility] for a referral at [phone] or toll free at [phone] or log in to [email or web address] ?? You can view and manage your care through the patient portal or by using a health care filemon of your choosing. [employer] is a website that allows you to securely view your medical information including your hospital discharge summary, office visit summaries, medications and follow-up visits. You can also request appointments, renew medications, and request access to your medical information using a health care filemon of your choosing, or just ask a question. You can enroll at [email or web address] or register during your next office visit. You have been discharged from [facility], Patient Care Unit: S3. If you have any questions regarding these instructions after you leave, please call us and we will be happy to assist you. [facility] Your Care Team Attending Physician Oswald SHAY, Ledy Discharging Providers Pollo SHAY, Kay Bustos Reason for Your Visit Cavitary Lung Lesion Your Diagnosis Anemia Atrial fibrillation with RVR Elevated serum creatinine Headache Hyperkalemia Oral thrush Shortness of breath Shortness of breath Tests Performed Below is a partial list of the tests performed during your hospitalization. You may have had other tests and procedures not included in this list. Please discuss all test results with your provider. Basic Metabolic Panel BUN CBC COMPLETE CBC WITH DIFF Creatinine D Dimer Electrolytes Ferritin Glucose Level HAPTOGLOBIN High??Sensitivity??Troponin T HOLD GEL TUBE Iron Binding Capacity Unsaturated Iron Level LDH Magnesium Level MRSA PCR Nasal Swab Phosphorus Level ProBNP PROCALCITONIN, SERUM RETICULOCYTE COUNT Transferrin Chest CT W/ Contrast CT Abdomen and Pelvis W/O Contrast CXR Portable XR Chest 2 Views Frontal and Lat Primary Care Provider Mary SHAY, Bridgette Archiabld Advance Directive . Discharge Vitals Temperature: 98 DegF Height: 165 cm Pulse Rate: 64 bpm Weight: 58.7 kg Respiratory Rate: 18 br/min Body Mass Index: 21.56 kg/m2 Systolic Blood Pressure: 110 mm Hg Body surface area: 1.64 Diastolic Blood Pressure:??53 mm Hg??Low ?? Oxygen Saturation: 96 % ?? Studies Pending All tests and labs ordered during this hospital stay have been completed unless listed below. Please discuss all pending results with your provider listed above in these instructions. ?? AFB Culture w/ AFB Smear, Respiratory Add On Lab Order Aspergillus Antigen Blood Culture Blood Culture #2 Fungal Culture, Respiratory Sputum Culture w/ Gram Smear What to do next Instructions From Your Doctor Discharge Orders Scheduled Follow-Up Appointments Wednesday 1:00 PM EDT ?? With: Juan SHAY, Miguel Carrasco Where: [facility] [address] [place] [address]- 2022 1:00 PM EDT ?? With: Where: [facility] [address] [facility] [address] [place] [address]- 2022 1:30 PM EDT ?? With: Dawson KELLEY, Whitney Joiner Where: [facility] [address] [place] [phone]- Wednesday 11:20 AM EDT ?? With: Kwan SHAY, Renata Trejo Where: [facility] Pul[facility] [address] [place] [address]- You Need to Schedule the Following Appointments Follow Up with??Mary SHAY, Bridgette Archibald When??Within 1 week: call to discuss follow up visit Where: ?? Discharge Medications ERNESTINA ECHEVARRIA :1940 Visit Date:10/21/2022 Medications: Please continue your medications until treatment is completed or stopped by your provider. Medications not listed below should be discontinued. Discuss any questions related to medications with your provider. What How Much When Instructions Next Dose New Benzonatate (benzonatate 100 mg oral capsule) 1 capsule Oral 3 times a day as needed for Cough take as directed take as directed New Doxycycline (Doxycycline Tablet) 100 Milligram Oral Daily Duration: 19 Days next dose due 5/9 at 9am next dose due 10/27 at 9am New Durable Medical Equipment (Aerochamber w/ Mask (Large)) See instructions For use with Advair HFA ?? New Fluconazole (fluconazole 100 mg oral tablet) 1 tab(s) Oral Daily Duration: 13 Days next dose due 10/27 at 9am next dose due 10/27 at 9am Changed Albuterol (Albuterol (Eqv-Ventolin HFA) 90 mcg/ inh inhalation aerosol) 2 puff(s) Inhalation Every 6 hours take every 6 hours as needed for wheezes take every 6 hours as needed for wheezes Changed Diltiazem (Cardizem CD 180 mg/ 24 hours oral capsule, extended release) 2 capsule Oral Daily next dose due 10/27 at 9am Changed Fluticasone-Salmeterol (Advair HFA 230 mcg / 21 mcg) 2 puff(s) Inhalation Twice a day Use with spacer rinse mouth and throat after use ?? next dose due 10/26 at 9pm next dose due 10/26 at 9pm Changed Metoprolol (Metoprolol Tartrate 50 mg oral tablet) 0.5 tab(s) Oral Twice a day next dose due 10/26 at 9pm next dose due 10/26 at 9pm Changed Tiotropium See instructions Inhalation Daily use two inhalations of one capsule for each dose ?? next dose due 10/27 at 9am Unchanged amiODARONE (amiodarone 200 mg oral tablet) See instructions 1 tablet in morning, 0.5 tablet in evening ?? next dose due 10/26 at 9pm next dose due 10/26 at 9pm Unchanged apixaban (Eliquis 5 mg oral tablet) 1 tab(s) Oral Twice a day next dose due 10/26 at 9pm next dose due 10/26 at 9pm Unchanged Citalopram (citalopram 20 mg oral tablet) daily TAKE 1 TABLET BY MOUTH EVERY DAY ?? next dose due 10/27 at 9am next dose due 10/27 at 9am Unchanged Famotidine (famotidine 20 mg oral tablet) 1 tab(s) Oral Twice a day next dose due 10/26 at ??9pm next dose due 10/26 at ??9pm Unchanged Gabapentin (gabapentin 100 mg oral capsule) 1 capsule Oral Twice a day TAKE 1 CAPSULE BY MOUTH 3 TIMES A DAY FOR 30 DAYS ?? next dose due 5/8 at 9pm next dose due 5/8 at 9pm Unchanged Losartan (losartan 25 mg oral tablet) 1 tab(s) Oral Daily next dose due 5/ at 9am next dose due 5/ at 9am Unchanged Montelukast (montelukast 10 mg oral tablet) 1 tab(s) Oral Daily next dose due 5/ at 9am next dose due 5 at 9am Unchanged Pantoprazole (pantoprazole 40 mg oral delayed release tablet) Daily TAKE 1 TABLET BY MOUTH EVERY DAY ?? next dose due 5 at 9am next dose due 5/ at 9am ?? What How Much When Why Comments Stop Taking Dexamethasone (dexamethasone 4 mg oral tablet) 1.5 tab(s) Oral Daily in the morning Duration: 7 Days Stop Taking Nystatin (nystatin 693910 u/ ml oral suspension) 5 Milliliter Oral 4 times a day Oral thrush Duration: 7 Days swish and swallow ?? Test Results Below is a partial list of the most recent Laboratory test results done prior to this discharge. You may have had other tests and procedures not included in this list. Please discuss all test resultswith your provider. Est Creatinine Clearance - 44.04 mL/min (10/25/2022) Basic Metabolic Panel (10/25/2022) ???Sodium - 134 mmol/L???Potassium - 4.3 mmol/L???Chloride - 103 mmol/L???Bicarbonate Level - 22 mmol/L???Anion Gap - 9???Glucose Level - 90 mg/dL???BUN - 22 mg/dL???Creatinine-Blood - 0.9 mg/dL???Estimated GFR Creatinine - 63 ML/MIN/1.73 M2???Calcium - 8.5 mg/dL BUN (10/22/2022) ???BUN - 30 mg/dL CBC (10/26/2022) ???WBC - 12.4 k/mm3???RBC - 2.60 m/mm3???Hgb - 8.1 Gm/dL???Hct - 24.9 %???MCV - 95.8 femtoliters???MCH - 31.2 pg???MCHC - 32.5 g/dL???Platelet Count - 157 k/mm3???RDW-SD - 51.2 femtoliters???MPV - 10.6 femtoliters???Nucleated RBC (Automated) - 0.0 #/100 WBC'S???Abs. NRBC - 0.0 k/mm3 COMPLETE CBC WITH DIFF (10/21/2022) ???WBC - 10.2 k/mm3???RBC - 2.54 m/mm3???Hgb - 8.0 Gm/dL???Hct - 24.1 %???MCV - 94.9 femtoliters???MCH - 31.5 pg???MCHC - 33.2 g/dL???Platelet Count - 152 k/mm3???RDW-SD - 51.4 femtoliters???MPV - 10.2 femtoliters???Nucleated RBC (Automated) - 0.0 #/100 WBC'S???Abs. NRBC - 0.0 k/mm3???Abs. Neut - 9.6 k/mm3???Abs. Lymph - 0.2 k/mm3???Abs. [place] - 0.3 k/mm3???Abs. Eo - 0.0 k/mm3???Abs. Baso - 0.0 k/mm3???Neut % - 94.0 %???Lymph % - 2.2 %???[place] % - 2.4 %???Eos % - 0.0 %???Baso % - 0.1 %???Imm Gran- 1.3 %???Abs. Imm Gran - 0.1 k/mm3 Creatinine (10/22/2022) ???Creatinine-Blood - 1.1 mg/dL???Estimated GFR Creatinine - 51 ML/MIN/1.73 M2 D Dimer (10/21/2022) ???D-Dimer - 0.74 mg/L FEU Electrolytes (10/22/2022) ???Sodium - 137 mmol/L???Potassium - 5.1 mmol/L???Chloride - 108 mmol/L???Bicarbonate Level - 20 mmol/L???Anion Gap - 9 Ferritin (10/23/2022) ???Ferritin Level - 430 ng/mL Glucose Level (10/22/2022) ???Glucose Level - 122 mg/dL HAPTOGLOBIN (10/23/2022) ???Haptoglobin - 196 mg/dL High??Sensitivity??Troponin T (10/21/2022) ???High Sensitivity Troponin (HSTnT) - 23 ng/L HOLD GEL TUBE (10/26/2022) ???Hold Gel Top - SPECIMEN DISCARDED AFTER 1 WEEK Iron Binding Capacity Unsaturated (10/23/2022) ???Iron Binding Capacity, Unsaturated - 112 mcg/dL Iron Level (10/23/2022) ???Iron Level - 43 mcg/dL LDH (10/23/2022) ???LDH - 350 units/L Magnesium Level (10/25/2022) ???Magnesium - 1.9 mg/dL MRSA PCR Nasal Swab (10/24/2022) ???MRSA PCR Result - Positive, MRSA target DNA detected.???S Aureus PCR Result - Positive, SA target DNA detected. Phosphorus Level (10/25/2022) ???Phosphorus - 3.1 mg/dL ProBNP (10/21/2022) ???Nt-Probnp - 888 pg/mL PROCALCITONIN, SERUM (10/23/2022) ???Procalcitonin - 0.10 ng/mL RETICULOCYTE COUNT (10/23/2022) ???Retic Count - 2.0 %???Retic Count Corrected - 1.1 %???Retic Production Index - 0.8 % Transferrin (10/23/2022) ???Transferrin - 116 mg/dL Allergies (NKA means No Known Allergies) Augmentin??(nausea) Problems Active Problems??(32) Abdominal hernia?? Abnormal urine color?? Adenomatous polyp of colon?? Allergic rhinitis?? Anemia?? Anxiety?? Asthma?? Atrial fibrillation and flutter?? Bilateral nephrolithiasis?? Bladder stones?? Breast pain, left?? CAP (community acquired pneumonia)?? Cough?? COVID-19?? h/o Hypertension?? H/O sebaceous cyst?? Hematuria?? Hiatal hernia with gastroesophageal reflux?? History of basal cell carcinoma of skin?? Hx of breast cancer?? Left-sided chest wall pain?? Localized osteoarthritis of knee?? LUQ abdominal pain?? Oral thrush?? Osteoarthritis of left knee?? Osteoporosis?? Popliteal pain?? Rotator cuff syndrome of left shoulder?? Shortness of breath?? SVT (supraventricular tachycardia)?? Trigger middle finger?? Wrist injury?? Education Materials Below is the list of Educational Leaflet Providered with your Discharge Instructions. Using an Inhaler with a Spacer?? Community-Acquired Pneumonia in Adults?? Bacterial Pneumonia?? Depression: Tips to Help Yourself?? Depression?? Valuables and Belongings I fully understand and agree that [facility] accepts no responsibility for all my personal [...] to send valuables and belongings home. ?? No Valuables/Belongings: No valuables/belongings present Review of Valuable and Belonging List: With patient Date for Pt to Sign Valuables/Belongings: 10/26/22 16:15:00 ?? Other Discharge Information ? Case Management Discharge Plan?? Discharge Plan?? Discharge Agency Information?? Discharge Level of Care at Discharge: senior care facility Name [facility] Agency [facility]1: [facility] Discharge Transportation Arranged: [facility] [address] [facility] ??[phone] Service Categories #1: Occupational Therapy, Physical Therapy, Fpc Mode of Transportation Arranged: Ambulance Additional Info for D/C Instructions: [facility] and bring you there. Discharge Arranged Transport Date/Time: 10/26/22 16:30:00 Name of Person Notified of Transfer: Doreen Discharge Nursing Homes/Rehab Facilities: [facility] ? Pulmonary Rehab Status?? Pulmonary Rehab Discharge Status?? Respiratory Rate: 18 br/min ? Common Emergency Awareness Tips IS [...] are strongly encouraged to quit. Please call [facility] [employer] at [phone] or [phone] or log in to [email or web address] for referrals to smoking cessation programs. ?? 441 Suicide & Crisis Lifeline is available 11/01 if you or someone you know needs to find a reason to keep living. By calling 707 you'll be connected to a skilled, trained counselor at a crisis center in your area. INPATIENT DISCHARGE INSTRUCTIONS SIGNATURE PAGE ERNESTINA ECHEVARRIA Location:[facility] Registration Date and Time:10/21/2022 15:20 EDT Primary Care Physician: Mary SHAY, Bridgette Archibald, I ERNESTINA ECHEVARRIA, have received the above patient education materials/instructions and have verbalized understanding. If ambulance or transport services are being used I further acknowledge being given a choice of service. ?? If you need to contact me, please call me at this number: . 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 [id number] Using an Inhaler with a Spacer To control asthma, you need to use your medicines the right way. Some medicines are inhaled using adevice called a metered-dose??inhaler (MDI). MDIs deliver medicine with a fine spray. Your healthcare provider has prescribed a special chamber or spacer to use with your inhaler. A spacer increases the amount of medicine that goes to your lungs. It may make your medicine work better. Steps for using an inhaler with a spacer Step 1: ??? Wash your hands. ??? Check the expiration date and the counter of the inhaler, if present. ??? Remove the cap from the inhaler. ??? Shake the inhaler well. If the inhaler is being used for the first time or has not been used for a while, prime it as directed by the product maker. Make sure to prime the inhaler in the air away from your face. ??? Check to make sure the metal canister is put correctly into the plastic boot, or nagy, of the inhaler. See the package insert for instructions. ??? Attach the spacer to the inhaler. Then remove the cap from the spacer mouthpiece. Step 2: ??? Breathe out normally, away from the spacer. ??? Put the mouthpiece of the spacer past your teeth and above your tongue. Close your lips tightly around it. ??? Keep your chin up or level. Step 3: ??? Press down on the canister 1 time to release the medicine ??? Then breathe in through your mouth as slowly and deeply as you can. This should take??about 5 to 10?? seconds. If you breathe too quickly, you may hear a whistling sound in certain spacers. Step 4: ??? Take the spacer mouthpiece out of your mouth. Close your lips. ??? Hold your breath up to 10 seconds if you are able. ??? Slowly breathe out through your mouth. ??? After using your inhaler, rinse your mouth with water by swishing, gargling, and spitting out the water. Never swallow it.Inhaled corticosteroids can cause a fungal infection called thrush in your mouth and throat. ??? Wash your hands again when you are done. ?Important If you???re prescribed more than 1 puff of medicine at a time,??wait up to 60 seconds, or as directed by your healthcare provider, between puffs. This number may be different for different medicines.??Shake the inhaler again. Then repeat steps 2 to 4. You can find important information about the medicine in the package insert. This is the paper thatcomes with the medicine. If you use more than one inhaler, ask your healthcare provider which one to use first. Your healthcare provider or pharmacist can show you how to use your inhaler and spacer the right way. Know how many puffs are left in your inhaler. That way you won't run out of your medicine when you need it. Ask your provider how to know how many puffs are left. ?? Last Reviewed Date: 2020 ?? [id number] [employer]. All rights reserved. This information is not intended as a substitute for professional medical care. Always follow your healthcare professional's instructions. ?? * Pollo SHAY, Kay Bustos: PERFORM Event Display: Patient Education Leaflets Authored Date: [id number] Community-Acquired Pneumonia in Adults ?? 606 Community-Acquired Pneumonia in Adults What is community-acquired pneumonia? Pneumonia is a type of lung infection. It can cause breathing problems and other symptoms. In community-acquired pneumonia (CAP), you get infected in a community setting. It doesn???t happen in a hospital, senior care, or other healthcare center. Your lungs are [...] ?? Last Reviewed Date: 2022 ?? [employer]. All rights reserved. This information is not intended as a substitute for professional medical care. Always follow your healthcare professional's instructions. ?? * Pollo SHAY, Kay Bustos: PERFORM Event Display: Patient Education Leaflets Authored Date: [id number] Bacterial Pneumonia ?? Bacterial Pneumonia - Video Pneumonia is a term that refers to inflammation of the lung. Bacterial pneumonia means that the inflammation is caused by a bacterial infection. This video takes a look at the possible causes and recommended treatments. To view the video go to this web address: [email or web address] Or, scan this QR code with your smart phone Last Reviewed Date: 2020 ?? [id number] [employer]. All rights reserved. This information is not intended as a substitute for professional medical care. Always follow your healthcare professional's instructions. ?? CT Chest W contrast IV * Heena , CIS S: SKYLAR Taveras MD, Leonardo Man: VERIFY Event Display: Result: Authored Date: [id number] CT Chest W/ Contrast INDICATION: Reason: Infection; new cavitary nodule; Clinical Question(s): Abscess Empyema; Order Comment: TECHNIQUE: Helical CT scan of the chest with IV contrast, formatted in 3 planes. 75 cc of [id number] was administered intravenously. Weight-based protocol was performed using automatic exposure control. CTDIvol Body: 4.90 mGy, DLP Body: 185 mGy*cm. COMPARISON: CT chest from 10/14/2022 CT abdomen and pelvis from 10/23/2022 FINDINGS: Public Policy Associate view findings, lines and tubes: None. Trachea and airways: Patent without evidence of tracheal or endobronchial lesion. Lungs and pleura: Compared to 10/14/2022, decreasing patchy areas of airspace consolidation throughout both lungs. Previously seen confluent consolidation in the left lung apex is much smaller. Other areas of somewhat nodular consolidation have overall decreased since the last exam, although opacity in the right lung base is slightly increased. Decreased confluence of consolidation in the left lower lung (205:68 versus 505:56 on prior). A left lower lobe nodule measuring 2.2 cm (205:67) exhibits a new area of central cavitation which is newfrom prior CT and recognized on 10/23/2022 CT abdomen and pelvis. No pleural effusion or pneumothorax. Mediastinum and randolph: No mass or hematoma. Decreasing size of mediastinal lymph nodes for example right lower paratracheal node (201:37) now 8 mm, previously 13 mm. Large hiatal hernia with some debris in the esophagus. Heart: Heart is normal in size. No pericardial effusion. Moderate coronary artery calcification. Aorta: Mild vascular calcification but no aneurysm. Pulmonary arteries: Normal caliber. No evidence of pulmonary embolism on this study performed without angiographic technique. Chest wall soft tissues: No acute abnormality. Some curvilinear calcifications in the left breast may be vascular in origin. Diaphragm: Small fat-containing Bochdalek hernias. Upper abdomen: No significant abnormality. Unchanged centimeter hypodensities in the liver. Bones: No acute abnormality. Spine degenerative changes. Old rib fractures. IMPRESSION: Compared to CT chest from 10/14/2022: Overall decreasing consolidative opacities throughout the lungs significantly improved in the left upper lobe and left lower lobe, although perhaps minimally increased in the right lung base. As mentioned on prior CT abdomen and pelvis a 2.2 cm nodule in the left lung base where an area of more confluent consolidation had been previously, which exhibits a new central focus of cavitation. Overall findings are suggestive of a improving infectious/inflammatory process. Continued attention on follow-up is recommended. Large hiatal hernia. WSN: [id number] Ordering Physician: Lisa Driver Dictated By: Leonardo Taveras MD Dictated Date/Time: 10/24/22 1:52 pm Reviewed By: Leonardo Taveras MD Signed By: Leonardo Taveras MD Signed Date/Time: 10/24/22 1:52 pm Transcribed By: MERLY Transcribed Date/Time: 10/24/22 1:41 pm Laboratory * MADAN Naik S: TRANSCRIRandall Taylor MD: VERIFY Event Display: Result: Authored Date: [id number] Chest 2 Views Frontal and Lat Hx of Present Illness: pt here with SOB and was dx with PNA and covid on 4 26 checked O2 sat at home was 88%; Reason: Shortness of Breath; Clinical Question(s): CHF COMPARISON: 10/13/2022 FINDINGS: LINES AND TUBES: None. LUNGS AND PLEURA: Hazy ill-defined opacities about the left lung have decreased in size and density since the prior study. Right lung remains clear. No overt pulmonary edema. Tiny pleural effusions. HEART, MEDIASTINUM AND RANDOLPH: Unchanged. Moderate size hiatal hernia reidentified. BONES AND SOFT TISSUES: No acute abnormality. IMPRESSION: Persistent but significant improvement in multifocal pneumonia throughout the left lung. WSN: [id number] Ordering Physician: Bruce Naik Dictated By: Randall Chun MD Dictated Date/Time: 10/21/22 1:46 pm Reviewed By: Randall Chun MD Signed By: Randall Chun MD Signed Date/Time: 10/21/22 1:46 pm Transcribed By: MERLY Transcribed Date/Time: 10/21/22 1:46 pm Portable XR Chest Views * MADAN Naik S: RAVIRILeonardo Mathew MD: VERIFY Event Display: Result: Authored Date: [id number] Chest Portable Reason: Cough; Clinical Question(s): Pneumonia / Pneumonia COMPARISON: 10/21/2022 FINDINGS: LINES AND TUBES: None. LUNGS AND PLEURA: Worsening patchy airspace opacity throughout the left lung. No pleural effusion. No pneumothorax. HEART, MEDIASTINUM AND RANDOLPH: Unchanged. BONES AND SOFT TISSUES: No acute abnormality. IMPRESSION: Worsening patchy airspace opacity in the left lung. WSN: [id number] Ordering Physician: Lisa Driver Dictated By: Leonardo Moran MD Dictated Date/Time: 10/23/22 11:56 a Reviewed By: Leonardo Moran MD Signed By: Leonardo Moran MD Signed Date/Time: 10/23/22 11:56 am Transcribed By: MERLY Transcribed Date/Time: 10/23/22 11:[address] Abdomen and Pelvis WO contrast * BHSPowerscribe , CIS S: TRANSCRIBE Sofie Ramirez MD: VERIFY Event Display: Result: Authored Date: [id number] CT Abdomen and Pelvis W/O Contrast Reason: Other:; retroperitoneal bleed; Clinical Question(s): Hemorrhage Hematoma; Order Comment: TECHNIQUE: Spiral CT through the abdomen and pelvis without IV contrast formatted in 3 planes. Thisstudy was performed without oral contrast. Weight- based protocol using automatic tube modulation was used to optimize exposure parameters. CTDIvol Body: 14.60 mGy, DLP Body: 728 mGy*cm. COMPARISON: CT abdomen and pelvis 09/25/2022, 10/04/2020. FINDINGS: Public Policy Associate View Findings, Lines and Tubes: None. Visualized Chest: Patchy consolidative and nodular opacities are present in bilateral lung bases. Acavitary nodule is present in the left lung base measuring 2.0 x 1.7 cm; this nodule has decreased in size from the prior examination, previously measuring approximately 2.3 x 1.9 cm, but the internal cavitation is new. Compared to the study of 10/14/2022, the extent of consolidation opacity has overall decreased in the left lower lobe, but is slightly increased in the right lower lobe. No pleuraleffusion. The heart is normal in size. No pericardial effusion. Diaphragm: Normal. Liver: Multiple subcentimeter circumscribed low-density lesions likely represent cysts (in the absence of known malignancy). Gallbladder: No CT evidence of gallbladder pathology. Bile ducts: No biliary ductal dilation. Spleen: Normal. Pancreas: Normal. Adrenal glands: Normal. Kidneys and ureters: No hydronephrosis or noncontrast evidence of suspicious masses. Parapelvic simple cysts are present bilaterally. Bilateral nonobstructive renal calculi, as described on recent CTurogram.. Bladder: Calculi in the dependent aspect of the bladder Reproductive organs: Uterus is surgically absent. No adnexal mass. Stomach, small bowel, and large bowel: Moderate type III paraesophageal hernia. Stomach is otherwise unremarkable. Large and small bowel are normal in course and caliber without obstruction or focal inflammatory change. Large volume retained stool is present in the ascending colon. Appendix: Not seen, but no evidence of appendicitis. Peritoneum and retroperitoneum: No ascites or pneumoperitoneum. No omental or mesenteric lesions. Lymph nodes: No enlarged lymph nodes. Blood vessels: Moderate atherosclerotic vascular calcification. No aortic aneurysm. Abdominal and pelvic wall: There is enlargement of bilateral rectus muscles in the pelvis by hyperdense hematomas, measuring 6.0 x 3.6 x 3.9 cm on the right, and 3.4 x 2.9 x 5 cm on the left. These are new from the study of 09/25/2022. Tiny fat-containing umbilical hernia is also present. Subcutaneous fat stranding is noted in bilateral flanks in the pelvis. There is a small right inguinal hernia containing fat and small amount of low-density fluid, similar to prior Bones: No acute abnormality. Degenerative changes of the spine. Mild stairstep anterolisthesis between the L3 and L5 with marked loss of disc space at L4-5 and broad-based disc bulge at this level, with suspected high-grade spinal stenosis. Mild chronic loss of height of the L4 vertebral body. 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 IMPRESSION: 1. Intramuscular hematomas in bilateral rectus muscles in the pelvis, new from 09/25/2022. 2. No evidence of retroperitoneal hematoma or other acute intra-abdominal abnormality. 3. Consolidative and nodular opacities in bilateral lung bases, improved on the left and increased on the right since the CT of 10/14/2022. There has been interval development of cavitation within a nodular opacity in the left base, though the nodule has decreased in size. A actionable message (Miranda) has been communicated via the [employer] system on 10/23/2022 3:55 PM, Message ID [id number]. WSN: [id number] Ordering Physician: Lisa Driver Dictated By: Sofie Ramirez MD Dictated Date/Time: 10/23/22 3:55 pm Reviewed By: Sofie Ramirez MD Signed By: Sofie Ramirez MD Signed Date/Time: 10/23/22 3:55 pm Transcribed By: MERLY Transcribed Date/Time: 10/23/22 3:30 pm Patient Care team information Care Team Personnel Name: Luis Bojorquez RN Position: [facility] RN Member Role: Primary Care Nurse Name: Mary SHAY, Bridgette Archibald Position: [facility] Primary Care Physician Member Role: PCP Address: Address: [address] [place] [id number] Name: Paris De Jesus LPN Position: [facility] RN Member Role: Primary Care Nurse Name: Keya Rollins RN Position: [facility] RN Member Role: Primary Care Nurse Name: Lisa Leone RN Position: [facility] RN Member Role: Primary Care Nurse Name: JesusitaTairk Cruz Attending Position: [facility] ED Medicine MD Name: Paris Resendez RN Position: [facility] ED RN W/OE and Tasks Member Role: Patient Care Provider Name: Magen Mills Position: [facility] ED OA Charge Member Role: ED Associate Name: Carlene Mello Position: [facility] ED TA [facility] Member Role: Patient Care Provider Name: Jimmy Umana Position: [facility] ED TA [facility] Member Role: Patient Care Provider Care Team Related Persons Name: DOREEN PENDLETON Address: home [address] [place] [address] Name: ILDA DOWLING Address: home [address] [place] [address]
--- OUTSIDE RECORDS SUMMARY | 2023-02-05 11:20 | XMS_ITS | Continuity of Care Document ---
Author Name Unknown Organization [facility] Address [address] [place] [address]- Care Team Providers Care Freelance Designer Name Role Phone Mary SHAY, Bridgette Archibald Primary Care Physic payal [facility] Date[facility]): 10/13[facility]21 - 11/12/21 [facility] [address] [place] [address]- [place] Allergies, Adverse Reactions, Alerts Substance Reaction [...] (oldterm) 06/21/01 Given 1Result Comment: [facility]: [id number] 2Result Comment: [facility]: [id number] 3Result Comment: [facility]: [id number] 4Result Comment: [facility] [id number] 5Result Comment: [05/02/2018] [facility] # [id number] 6Result Comment: [05/31/2017] [facility] [id number] 7Result Comment: [03/16/2014] Dr. Duffy 8Result Comment: [07/01/2015] diluent [id number] 08/24/17 [employer] 9Admin Note: rcvd elsewhere Medications albuterol 0.083% inhalation solution 3 mL = 2.5 mg, Inhalation, Every 6 hours, DX: J45.909, # 60 each, 0 Refills, Maintenance, 08/25/19 10:27:00 EST, Solution, [facility]/pharmacy #[id number], 160.5, cm, 07/19/19 13:59:00 EST, Height, 55.6, kg, 03/15/19 15:53:00 EDT, Dry Weight Start Date: 08/25/19 Status: Ordered Azithromycin 5 Day Dose Pack 250 mg oral tablet 1 pack/packet, By Mouth, Once, # 6 tablet, 0 Refills, Soft Stop, 04/10/21 16:39:00 EDT, Tablet, [facility]/pharmacy #[id number], Partial [...] Refills, Maintenance, 04/22/21 15:35:00 EDT, Tablet, [facility]/pharmacy #[id number], Partial fill upon patient request if the prescription is for a schedule II opioid drug., 160, cm, 01/20/21 14:22:00 EDT, Height,... Start Date: 04/22/21 Status: Ordered citalopram 20 mg oral tablet 20 mg, 1, tablet, By Mouth, Daily, # 90 tablet, Refills 1, Tot. Refills 1, Maintenance, 10/13/21 12:28:00 EDT, Route to Pharmacy Electronically, [facility]/pharmacy #[id number], 160, cm, 08/19/21 15:40:00 EST, [...] EST, [id number] Partial fill upon patient request if the prescription is for a schedule II o... Start Date: 07/31/21 Status: Ordered loratadine 10 mg oral tablet 10 mg, 1, tablet, By Mouth, Daily, # 90 tablet, Refills 0, Tot. Refills 0, Maintenance, 11/28/20 9:28:00 EDT, [id number], 160.5, cm, 11/26/20 11:39:00 EDT, Height, 55.6, kg, 03/15/19 15:53:00 EDT, Dry Weight Start Date: 11/28/20 Status: Ordered losartan 25 mg oral tablet 25 mg, 1, tablet, By Mouth, Daily, # 90 tablet, Refills 0, Tot. Refills 0, Maintenance, 10/06/21 10:15:00 EDT, [id number]ment, 160, cm, 08/19/21 15:40:00 EST, Height, 63, kg, 12/12/20 13:26:00 EDT, . Start Date: 10/06/21 Status: Ordered metoprolol 25 mg oral tablet [...] tablet, Refills 11, Route to Pharmacy Electronically, [id number], 160, cm, 08/19/21 15:40:00 EST, Height, 63, [...] 90 capsule, 1 Refills, Maintenance, 10/23/21 14:10:00 EDT,[facility]/pharmacy #[id number], 160, cm, 08/19/21 15:40:00 EST, [...]
--- OUTSIDE RECORDS SUMMARY | 2023-02-05 11:20 | XMS_ITS | Continuity of Care Document ---
Author Name Unknown Organization [facility] Address [address] [place] [address]- Care Team Providers Care Tele Marketing Executive Name Role Phone Mary SHAY, Bridgette Archibald Primary Care Physic payal [facility] Date[facility]): 05/31/20 - 06/30/20 [facility] [address] [place] [address]- Allergies, Adverse Reactions, Alerts Substance Reaction Severity [...] Given 1Result Comment: [facility]: [id number] 2Result Comment: [facility] [id number] 3Result Comment: [05/02/2018] [facility] # [id number] 4Result Comment: [05/31/2017] [facility] [id number] 5Result Comment: [03/16/2014] Dr. Duffy 6Result Comment: [07/01/2015] diluent [id number] 08/24/17 [employer] 7Admin Note: rcvd elsewhere Medications [...] 10/20/19 10:07:00 EDT, [id number].5, cm, 07/19/19 13:59:00 EST, Height, 55.... Start Date: 10/20/19 Status: Ordered Azithromycin 5 Day Dose Pack 250 mg oral tablet 1 pack/packet, By Mouth, Once, # 6 tablet, 0 Refills, Soft Stop, 08/23/19 16:55:00 EST, Tablet, [facility]/pharmacy #[id number], 160.5, cm, 07/19/19 13:59:00 EST, Height, 55.6, kg, 03/15/19 15:53:00 EDT, Dry Weight Start Date: 08/23/19 Status: Ordered barium sulfate 2% oral suspension See Instructions, dispense two 450 mg bottles. Drink one 450 ml bottle at 8am, and one 450 mL bottle 90 minutes prior to procedure., # 900 mL, 0 Refills, Maintenance, 06/05/19 15:49:07 EST, [facility]/pharmacy #[id number], dispense two 450 mg bottles. ; Drink on... Start Date: 06/05/19 Status: Ordered Breo Ellipta 100 mcg-25 mcg/inh inhalation powder 1 puffs, Inhalation, Daily, # 30 each, 5 Refills, Maintenance, 06/04/20 9:31:00 EST, Powder, [facility]/pharmacy #[id number], Substitute for Advair RX, 1 [...] 03/27/20 10:19:00 EDT, Route to Pharmacy Electronically, [facility]/pharmacy #[id number], 160.5, cm, 12/12/19 13:19:00 EDT, [...] 04/19/20 12:01:00 EDT, Route to Pharmacy Electronically, [facility]/pharmacy #[id number], 160.5, cm, 04/19/20 11:16:00 EDT, Height, 55.6, kg, 03/15/19 15:53:00 EDT, Dry Weight Start Date: 04/19/20 Status: Ordered losartan 25 mg oral tablet 25 mg, 1, tablet, By Mouth, Daily, # 90 tablet, Refills 3, Tot. Refills 3, Maintenance, 12/20/19 15:58:00 EDT, Route to Pharmacy Electronically, [facility] ([place]), 160.5, cm, 12/12/19 13:19:00 [...] 90 capsule, 1 Refills, Maintenance, 03/01/20 11:31:00 EDT,[facility]/pharmacy #[id number], 160.5, cm, 12/12/19 13:19:00 EDT, Height, 55.6, kg, 03/15/19 15:53:00 EDT, Dry Weight Start Date: 03/01/20 Status: Ordered Vitamin D3 = 1,000 International_Units, By Mouth, 0 Refills, Maintenance, 11/22/15 14:34:08 Start Date: 11/22/15 Status: Ordered Voltaren 1% topical gel 1 application, Topically, 4 times a day, # 100 Gm, 0 Refills, Maintenance, 07/13/19 17:07:00 EST, Gel, [facility]/pharmacy #[id number], 1 application Topically 4 times a day, 160.5, cm, 07/13/19 13:23:00 EST, Height, 55.6, kg, 03/15/19 15:53:00 EDT, Dry Weight Start Date: 07/13/19 Status: Ordered Xarelto 20 mg oral tablet See Instructions, 1 tablet by oral route every day with the evening meal, # 90 tablet, 1 Refills, Maintenance, 11/27/19 12:58:00 EDT, Tablet, [facility] ([place]), 160.5, cm, 07/19/19 13:59:00 EST, Height, 55.6, kg, 03/15/19 15:53:00 EDT, Dry We... Start Date: 11/27/19 Status: Ordered Xarelto 20 mg oral tablet See Instructions, 1 tablet by oral route every day with the evening meal, # 30 tablet, 0 Refills, Maintenance, 01/01/20 17:23:00 EDT, Tablet, [facility]/pharmacy #[id number], 160.5, cm, 12/12/19 13:19:00 EDT, [...] infiltrating ductal carcinoma, T2 N0, ER positive, OK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 2013(Confirmed) 10/02/13 Active Osteoporosis(Confirmed) Active Hx of breast cancer(Confirmed) 2 10/2013 Active Wrist injury(Confirmed) Active 1Dermatologist is [place] [facility] 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, T2 N0, ER positive, [place] negative, 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 Social History Social History Type Response Smoking Status Former smoker; [employer] user in household: No; Other: Quit 30 years ago; Started at 16 YO 1/2 pack daily; entered on: 05/31/17 Sex
--- OUTSIDE RECORDS SUMMARY | 2023-02-05 11:21 | XMS_ITS | Continuity of Care Document ---
Author Name Unknown Organization [facility] Address [address] [place] [address]- Care Team Providers Care Associate Professor Of Literature Name Role Phone Mary SHAY, Bridgette Archibald Primary Care Physic payal Encounter [facility] Date(s): 05/25/19 - 06/01/19 [facility] [address] [place] [address]- [facility] Encounter Diagnosis LLQ abdominal pain(Discharge Diagnosis) - 05/25/19 Impingement syndrome of left shoulder(Discharge Diagnosis) - 05/25/19 Attending Physician: Mary SHAY, Bridgette Archibald Allergies, [...] Given 1Result Comment: [facility] [id number] 2Result Comment: [05/02/2018] [facility] # [id number] 3Result Comment: [05/31/2017] [facility] [id number] 4Result Comment: [03/16/2014] Dr. Duffy 5Result Comment: [07/01/2015] diluent [id number] 08/24/17 Merck 6Admin Note: rcvd elsewhere Medications Advair Diskus 250 mcg-50 mcg inhalation powder 1, puffs, Inhalation, 2 times a day, # 180 each, Refills 3, Tot. Refills 3, Maintenance, 05/26/18 10:07:57 EST, Route to Pharmacy Electronically, [id number], [facility] Start Date: 05/26/18 Stop Date: 05/21/19 Status: Ordered amiodarone 200 mg oral tablet 200 mg, 1, tablet, By Mouth, Daily, Prescribed by Dr. Car (Cardiology), # 90 tablet, Refills 0,Tot. Refills 0, Maintenance, 03/24/19 17:32:08 EDT, Route to Pharmacy Electronically, [id number], [facility] Start Date: 03/24/19 [...] 03/08/19 9:37:54 EDT, Route to Pharmacy Electronically, [id number], [facility] Start Date: 03/08/19 Status: Ordered diclofenac 1% [...] 07/13/18 16:42:32 EST, Route to Pharmacy Electronically, [id number], [facility] Start Date: 07/13/18 Stop Date: 07/08/19 [...] N0, ER positive, [place] negative, 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 Diagnosis Diagnosis Type Effective Dates Health Status Clinical Service Informant LLQ abdominal pain Discharge Diagnosis 05/25/19 Impingement syndrome of left shoulder Discharge Diagnosis 05/25/19 Vital Signs Most recent to oldest [Reference Range]: 1 Height 160.5 cm (05/25/19 12:48 PM) Weight 53.2 kg (05/25/19 12:48 PM) Oxygen Saturation [94-100 %] 97 % (05/25/19 12:48 PM) Pulse Rate [55-90 bpm] 64 bpm (05/25/19 12:48 PM) Body Mass Index [18.5-24.99] 20.65 (05/25/19 12:48 PM) Blood Pressure [90-138/55-84 mm Hg] 140/ 64mm Hg *H* (05/25/19 12:48 PM) Respiratory Rate [16-30 br/min] 18 br/mi n (05/25/19 12:48 PM) Temperature [96.8-100.4 DegF] 98.3 DegF (05/25/19 12:48 PM) Mode of Delivery (Oxygen) Room air (05/25/19 12:48 PM) Blood pressure sites Arm, right (05/25/19 12:48 PM) Temperature Route Oral (05/25/19 12:48 PM) Weight Obtained Via Standing scale (05/25/19 12:48 PM) Dry Weight Obtained Via Standing scale (05/25/19 12:48 PM) Social History Social History Type Response Smoking Status Former smoker; Tobac co user in household: No; Other: Quit 30 years ago; Started at 16 YO 1/2 pack daily; entered on: 05/31/17 Sex
--- OUTSIDE RECORDS SUMMARY | 2023-02-05 11:21 | XMS_ITS | Continuity of Care Document ---
Author Name Unknown Organization [facility] Address [address] [place] [address]- Care Team Providers Care Crown Attacher Name Role Phone Mary SHAY, Bridgette October Cristela Primary Care Physic payal Encounter [facility] Date(s): 01/01/23 - 01/01/[address] [address]- Discharge Disposition: A-D/C Walkout Attending Physician: Not on Staff, Attending MD Admitting Physician: Not on Staff, Admitting MD Referring Physician: Not on Staff, Referring MD Allergies, Adverse Reactions, Alerts Substance Reaction Severity Status Augmentin nausea Active Immunizations Given and Recorded Vaccine Date Status Refusal Reason [id number] 12y+ bivalent booster vax 1 04/09/22 Given [...] Vaccine (oldterm) 06/21/01 Given 1Result Comment: [facility]: [id number] 2Result Comment: [facility]: [id number] 3Result Comment: [facility]: [id number] 4Result Comment: [facility]: [id number] 5Result Comment: [facility] [id number] 6Result Comment: [05/02/2018] [facility] # [id number] 7Result Comment: [05/31/2017] [facility] [phone] 8Result Comment: [03/16/2014] Dr. Duffy 9Result Comment: [facility]: [id number] 10Result Comment: [07/01/2015] diluent [id number] 08/24/17 Merck 11Admin Note: rcvd elsewhere Medications [...] Mouth, Once, Administered after procedure - LOT [id number] EXP 01/2024, # 1 tablet, 0 Refills, [...] 0 Refills, Maintenance, 12/15/22 9:34:00 EDT, Tablet, [facility]/pharmacy #[id number], Partial fill upon [...] 11/17/22 8:17:00 EDT, Route to Pharmacy Electronically, [id number], 165, cm, 10/26/22 16:15:00 EDT, Height, 58.7, kg, 10/21/22 21:15:00 EDT, Dry Weight Start Date: 11/17/22 Stop Date: 12/17/22 Status: Ordered losartan 25 mg oral tablet 1 tablet = 25 mg, By Mouth, Daily, # 30 tablet, 0 Refills, Maintenance, 12/15/22 9:35:00 EDT, Tablet, [facility]/pharmacy #[id number], Partial fill upon [...] infiltrating ductal carcinoma, T2 N0, ER positive, [place] negative, 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 Vital Signs Most recent to oldest [Reference Range]: 1 2 3 Height 163 cm (01/01/23 6:32 PM) 163 cm (01/01/23 3:52 PM) Weight 53 kg (01/01/23 6:32 PM) 53 kg (01/01/23 3:52 PM) Oxygen Saturation [94-100 %] 100 % (01/01/23 6:32 PM) 100 % (01/01/23 5:15 PM) 100 % (01/01/23 3:52 PM) Pulse Rate [55-90 bpm] 63 bpm (01/01/23 6:32 PM) 61 bpm (01/01/23 5:15 PM) 60 bpm (01/01/23 3:52 PM) Body Mass Index [18.5-24.99 kg/m2] 19.95 kg/m2 (01/01/23 6:32 PM) 19.95 kg/m2 (01/01/23 3:52 PM) Blood Pressure [90-138/55-84 mm Hg] 147/75mm Hg *H* (01/01/23 6:32 PM) 133/60mm Hg (01/01/23 5:15 PM) 143/63mm Hg *H* (01/01/23 3:52 PM) Respiratory Rate [16-30 br/min] 14 br/min *L* (01/01/23 6:32 PM) 18 br/min (01/01/23 3:52 PM) Temperature [96.8-100.4 DegF] 97.9 DegF (01/01/23 6:32 PM) 98.8 DegF (01/01/23 5:15 PM) 98.2 DegF (01/01/23 3:52 PM) Mode of Delivery (Oxygen) Room air (01/01/23 6:32 PM) Room air (01/01/23 3:52 PM) Room air (01/01/23 3:50 PM) Blood pressure sites Arm, right (01/01/23 6:32 PM) Arm, left (01/01/23 5:15 PM) Arm, left (01/01/23 3:52 PM) Temperature Route Oral (01/01/23 6:32 PM) Oral (01/01/23 5:15 PM) Oral (01/01/23 3:52 PM) Dry Weight 53 kg (01/01/23 6:32 PM) 53 kg (01/01/23 3:52 PM) Weight Obtained Via Standing scale (01/01/23 3:52 PM) Dry Weight Obtained Via Standing scale (01/01/23 3:52 PM) Social History Social History Type Response Smoking Status Former smoker; Tobac co user in household: No; Other: Quit 30 years ago; Started at 16 YO 1/2 pack daily; entered on: 05/31/17 Sex Patient Care team information Care Team Personnel Name: Luis Bojorquez RN Position: [facility] RN Member Role: Primary Care Nurse Name: Mary SHAY, Bridgette Archibald Position: [facility] Physician - Primary Care Member Role: PCP Address: Address: [address] [place] [id number] Name: Paris De Jesus LPN Position: [facility] RN Member Role: Primary Care Nurse Name: Lisa Leone RN Position: [facility] RN Member Role: Primary Care Nurse Care Team Related Persons Name: AMY PENDLETON Address: [address] [place] [address] Name: ILDA DOWLING Address: [address] [place] [address]
--- OUTSIDE RECORDS SUMMARY | 2023-02-05 11:21 | XMS_ITS | Continuity of Care Document ---
Author Name Unknown Organization [facility] Address [address] [place] [address]- Care Team Providers Care Managing Editor Name Role Phone Mary SHAY, Bridgette Archibald Primary Care Physic payal [facility]counter [facility] Date(s): 11/15/20 - 12/15/20 [facility] [address] [place] [address]- Allergies, Adverse Reactions, Alerts Substance Reaction Severity [...] Toxoid Vaccine (oldterm) 06/21/01 Given 1Result Comment: [facility]: [id number] 2Result Comment: [facility] 73436-016-04 3Result Comment: [05/02/2018] [facility] # [id number] 4Result Comment: [05/31/2017] [facility] 72905-872-01 5Result Comment: [03/16/2014] Dr. Duffy 6Result Comment: [07/01/2015] diluent [id number] 08/24/17 Merck 7Admin Note: rcvd elsewhere Medications Advair Diskus 250 mcg-50 mcg inhalation powder 1, puffs, Inhalation, 2 times a day, # 180 each, Refills 1, Tot. Refills 1, Maintenance, 10/03/20 12:43:00 EDT, Route to Pharmacy Electronically, [id number], [id number], 160.5, cm, [...] 09/30/20 11:37:00 EDT, Route to Pharmacy Electronically, [facility]/pharmacy #[id number], 160.5, cm, 04/19/20 11:16:00 [...] 12/11/20 15:53:00 EDT, Route to Pharmacy Electronically, [facility]/pharmacy #[id number], Partial fill upon patient request if the prescription is for a schedule II... Start Date: 12/11/20 Status: Ordered loratadine 10 mg oral tablet 10 mg, 1, tablet, By Mouth, Daily, # 90 tablet, Refills 0, Tot. Refills 0, Maintenance, 11/28/20 9:28:00 EDT, Route to Pharmacy Electronically, [facility]/pharmacy #[id number], 160.5, cm, 11/26/20 11:39:00 EDT, Height, 55.6, kg, 03/15/19 15:53:00 EDT, Dry Weight Start Date: 11/28/20 Status: Ordered losartan 25 mg oral tablet 25 mg, 1, tablet, By Mouth, Daily, # 90 tablet, Refills 0, Tot. Refills 0, Maintenance, 11/29/20 14:27:00 EDT, Route to Pharmacy Electronically, [facility]/pharmacy #[id number], Appointment, 160.5, cm, 11/26/20 11:39:00 [...] infiltrating ductal carcinoma, T2 N0, ER positive, [place]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
--- OUTSIDE RECORDS SUMMARY | 2023-02-05 11:21 | XMS_ITS | Continuity of Care Document ---
Author Name Unknown Organization [facility] Address [address] [place] [address]- Care Team Providers Care Tube Laser Operator Name Role Phone Mary SHAY, Bridgette Archibald Primary Care Physic payal [facility]counter [facility] Date(s): 02/04/21 - 03/06/21 [facility] [address] [place] [address]- Allergies, Adverse Reactions, Alerts Substance Reaction Severity [...] (oldterm) 06/21/01 Given 1Result Comment: [facility]: 32837-274-24 2Result Comment: [facility] 10307-203-25 3Result Comment: [05/02/2018] [facility] # [id number] 4Result Comment: [05/31/2017] [facility] [id number] 5Result Comment: [03/16/2014] Dr. Duffy 6Result Comment: [07/01/2015] diluent [id number] 08/24/17 Merck 7Admin Note: rcvd elsewhere Medications Advair Diskus 250 mcg-50 mcg inhalation powder 1, puffs, Inhalation, 2 times a day, # 180 each, Refills 1, Tot. Refills 1, Maintenance, 10/03/20 12:43:00 EDT, Route to Pharmacy Electronically, [id number], [facility]/pharmacy #[id number], 160.5, cm, 04/19/20 11:16:00 EDT, Height, 55.6,... Start Date: 10/03/20 Stop Date: 04/01/21 Status: Ordered albuterol 0.083% inhalation solution 3 mL = 2.5 mg, Inhalation, Every 6 hours, DX: J45.909, # 60 each, 0 Refills, Maintenance, 08/25/19 10:27:00 EST, Solution, [facility]/pharmacy #[id number], 160.5, cm, 07/19/19 13:59:00 EST, Height, 55.6, kg, 03/15/19 15:53:00 EDT, Dry Weight Start Date: 08/25/19 Status: Ordered Bactrim DS 800 mg-160 mg oral tablet 1 tablet, By Mouth, Once, [facility], # 1 tablet, 0 Refills, Soft Stop, 12/24/20 12:01:00 EDT, Partial fill upon patient request if the prescription is for a schedule II opioid drug. Start Date: 12/24/20 Status: Ordered cetirizine 10 mg oral tablet 1 tablet = 10 mg, By Mouth, Daily, # 30 tablet, 0 Refills, Maintenance, 12/27/20 14:45:00 EDT, Tablet, [facility]/pharmacy #[id number], Partial fill upon patient request if the prescription is for a schedule II opioid drug., 160, cm, 12/27/20 13:23:00 EDT, Height,... Start Date: 12/27/20 Status: Ordered citalopram 20 mg oral tablet 20 mg, 1, tablet, By Mouth, Daily, # 90 tablet, Refills 1, Tot. Refills 1, Maintenance, 09/30/20 11:37:00 EDT, Route to Pharmacy Electronically, [facility]/pharmacy #[id number], 160.5, cm, 04/19/20 11:16:00 EDT, Height, [...] 12/11/20 15:53:00 EDT, Route to Pharmacy Electronically, [facility]/pharmacy #[id number], Partial fill upon patient request if the prescription is for a schedule II... Start Date: 12/11/20 Status: Ordered Flonase 50 mcg/inh nasal spray 1 sprays, Nares, Both, 2 times a day, # 1 each, 6 Refills, Maintenance, 01/20/21 14:20:00 EDT, [place], [facility]/pharmacy #[id number], Partial fill upon patient request if the prescription is for a schedule II opioid drug., 1 sprays Nares, Both 2 times a day, 160,... Start Date: 01/20/21 Status: Ordered loratadine 10 mg oral tablet 10 mg, 1, tablet, By Mouth, Daily, # 90 tablet, Refills 0, Tot. Refills 0, Maintenance, 11/28/20 9:28:00 EDT, [id number], 160.5, cm, 11/26/20 11:39:00 EDT, Height, 55.6, kg, 03/15/19 15:53:00 EDT, Dry Weight Start Date: 11/28/20 Status: Ordered losartan 25 mg oral tablet 25 mg, 1, tablet, By Mouth, Daily, # 90 tablet, Refills 0, Tot. Refills 0, Maintenance, 11/29/20 14:27:00 EDT, [facility] Electronically, [id number], Appointment, 160.5, cm, 11/26/20 [...] infiltrating ductal carcinoma, T2 N0, ER positive, [place]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
--- OUTSIDE RECORDS SUMMARY | 2023-02-05 11:21 | XMS_ITS | Continuity of Care Document ---
Author Name Unknown Organization [facility] Address [address] [place] [address]- Care Team Providers Care Electronic Assembler Name Role Phone Mary SHAY, Bridgette Archibald Primary Care Physic payal Encounter [facility] Date(s): 04/19/19 - 06/08/[address] [address]- [facility] Discharge Disposition: A-D/C Home Attending Physician: Bridgette Hernandez MD Admitting Physician: Bridgette Hernandez MD Referring Physician: Bridgette Hernandez MD Allergies, [...] Toxoid Vaccine (oldterm) 06/21/01 Given 1Result Comment: [facility] [id number] 2Result Comment: [05/02/2018] [facility] # [id number] 3Result Comment: [05/31/2017] [facility] [id number] 4Result Comment: [03/16/2014] Dr. Duffy 5Result Comment: [07/01/2015] diluent [id number] 08/24/17 Merck 6Admin Note: rcvd elsewhere Medications Advair Diskus 250 mcg-50 mcg inhalation powder 1, puffs, Inhalation, 2 times a day, # 180 each, Refills 3, Tot. Refills 3, Maintenance, 05/26/18 10:07:57 EST, Route to Pharmacy Electronically, [id number], [facility] Start Date: 05/26/18 Stop Date: 05/21/19 Status: Ordered amiodarone 200 mg oral tablet 200 mg, 1, tablet, By Mouth, Daily, Prescribed by Dr. Car (Cardiology), # 90 tablet, Refills 0,Tot. Refills 0, Maintenance, 03/24/19 17:32:08 EDT, Route to Pharmacy Electronically, [id number], [facility] Start Date: 03/24/19 Stop [...] mL, 0 Refills, Maintenance, 06/05/19 15:49:07 EST, [facility]/pharmacy #[id number], dispense two 450 mg bottles. ; Drink on... Start Date: 06/05/19 Status: Ordered citalopram 20 mg oral tablet 20 mg, 1, tablet, By Mouth, Daily, # 90 tablet, Refills 1, Tot. Refills 1, Maintenance, 03/08/19 9:37:54 EDT, Route to Pharmacy Electronically, [id number], [facility] Start Date: 03/08/19 Status: Ordered diclofenac 1% [...] 07/13/18 16:42:32 EST, Route to Pharmacy Electronically, [id number], [facility] Start Date: 07/13/18 Stop Date: 07/08/19 [...] infiltrating ductal carcinoma, T2 N0, ER positive, [place] negative, 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 Social History Social History Type Response Smoking Status Former smoker; Tobac co user in household: No; Other: Quit 30 years ago; Started at 16 YO 1/2 pack daily; entered on: 05/31/17 Sex
--- OUTSIDE RECORDS SUMMARY | 2023-02-05 11:21 | XMS_ITS | Continuity of Care Document ---
Author Name Unknown Organization [facility] Address [address], [address] [place] [address]- Care Team Providers Care Ham Marker Name Role Phone Mary SHAY, Bridgette Archibald Primary Care Physic payal Encounter [facility] Date(s): 10/08/20 - 11/07/20 [facility] [address], [address] [place] [address]- Allergies, Adverse Reactions, Alerts Substance Reaction Severity [...] Toxoid Vaccine (oldterm) 06/21/01 Given 1Result Comment: [facility]: 49958-480-15 2Result Comment: [facility] [id number] 3Result Comment: [05/02/2018] [facility] # [id number] 4Result Comment: [05/31/2017] [facility] [id number] 5Result Comment: [03/16/2014] Dr. Duffy 6Result Comment: [07/01/2015] diluent [id number] 08/24/17 Merck 7Admin Note: rcvd elsewhere Medications Advair Diskus 250 mcg-50 mcg inhalation powder 1, puffs, Inhalation, 2 times a day, # 180 each, Refills 1, Tot. Refills 1, Maintenance, 10/03/20 12:43:00 EDT, Route to Pharmacy Electronically, [id number], [facility]/pharmacy #[id number], 160.5, cm, 04/19/20 11:16:00 EDT, Height, 55.6,... Start Date: 10/03/20 Stop Date: 04/01/21 Status: Ordered albuterol 0.083% inhalation solution 3 mL = 2.5 mg, Inhalation, Every 6 hours, DX: J45.909, # 60 each, 0 Refills, Maintenance, 08/25/19 10:27:00 EST, Solution, [facility]/pharmacy #[id number], 160.5, cm, 07/19/19 13:59:00 EST, Height, 55.6, kg, 03/15/19 15:53:00 EDT, Dry Weight Start Date: 08/25/19 Status: Ordered barium sulfate 2% oral suspension See Instructions, dispense two 450 mg bottles. Drink one 450 ml bottle at 8am, and one 450 mL bottle 90 minutes prior to procedure., # 900 mL, 0 Refills, Maintenance, 06/05/19 15:49:07 EST, [facility]/pharmacy #[id number], dispense two 450 mg bottles. ; [...] 09/30/20 11:37:00 EDT, [id number], 160.5, cm, 04/19/20 11:16:00 EDT, [...] 04/19/20 12:01:00 EDT, [facility] to Pharm[facility] Electronically, [id number], 160.5, cm, 04/19/20 11:16:00 EDT, Height, 55.6, kg, 03/15/19 15:53:00 EDT, Dry Weight Start Date: 04/19/20 Status: Ordered losartan 25 mg oral tablet 25 mg, 1, tablet, By Mouth, Daily, # 90 tablet, Refills 3, Tot. Refills 3, Maintenance, 12/20/19 15:58:00 EDT, Route to Pharmacy Electronically, [facility] 160.5, cm, 12/12/19 13:19:00 [...] capsule, 1 Refills, Maintenance, 03/01/20 11:31:00 EDT,[facility]/pharmacy #[id number], 160.5, cm, 12/12/19 13:19:00 EDT, Height, [...] N0, ER positive, [place]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 2013(Confirmed) 10/02/13 Active Osteoporosis(Confirmed) [...]
--- OUTSIDE RECORDS SUMMARY | 2023-02-05 11:21 | XMS_ITS | Continuity of Care Document ---
Author Name Unknown Organization [facility] Address [address] [place] [address]- Care Team Providers Care Telecommunications Engineer Name Role Phone Mary SHAY, Bridgette Archibald Primary Care Physic payal Encounter [facility] Date(s): 05/16/21 - 06/15/21 [facility] [address] [place] [address]- Attending Physician: Admsharon, Rubens Admitting Physician: AdmtrRubens Referring Physician: Admtr, Ar8 [...] 06/21/01 Given 1Result Comment: [facility]: [id number] 2Result Comment: [facility]: 67218-076-27 3Result Comment: [facility]: 91441-819-12 4Result Comment: [facility] 46883-399-22 5Result Comment: [05/02/2018] [facility] # [id number] 6Result Comment: [05/31/2017] [facility] [id number] 7Result Comment: [03/16/2014] Dr. Duffy 8Result Comment: [07/01/2015] diluent [id number] 08/24/17 Merck 9Admin Note: rcvd elsewhere Medications [...] Refills, Soft Stop, 04/10/21 16:39:00 EDT, Tablet, [facility]/pharmacy #[id number], Partial [...] 03/26/21 14:13:00 EDT, Route to Pharmacy Electronically, [facility]/pharmacy #[id number], 160, cm, 01/20/21 14:22:00 [...] 12/11/20 15:53:00 EDT, [id number] Partial fill upon patient request if the prescription is for a schedule II... Start Date: 12/11/20 Status: Ordered loratadine 10 mg oral tablet 10 mg, 1, tablet, By Mouth, Daily, # 90 tablet, Refills 0, Tot. Refills 0, Maintenance, 11/28/20 9:28:00 EDT, [facility] Electronically, [id number], 160.5, cm, 11/26/20 11:39:00 EDT, Height, 55.6, kg, 03/15/19 15:53:00 EDT, Dry Weight Start Date: 11/28/20 Status: Ordered losartan 25 mg oral tablet 25 mg, 1, tablet, By Mouth, Daily, # 90 tablet, Refills 1, Tot. Refills 1, Maintenance, 03/26/21 13:41:00 EDT, [facility] Electronically, [id number], 160, cm, 01/20/21 14:22:00 [...] 90 capsule, 0 Refills, Maintenance, 04/09/21 14:31:00 EDT,[facility]/pharmacy #[id number], 160, cm, 01/20/21 14:22:00 [...] N0, ER positive, [place] negative, 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 Social History Social History Type Response Smoking Status Former smoker; Tobac co user in household: No; Other: Quit 30 years ago; Started at 16 YO 1/2 pack daily; entered on: 05/31/17 Sex
--- OUTSIDE RECORDS SUMMARY | 2023-02-05 11:21 | XMS_ITS | Continuity of Care Document ---
Author Name Unknown Organization [facility] Address [address] [place] [address]- Care Team Providers Care Entry Level Management Name Role Phone Mary SHAY, Bridgette Archibald Primary Care Physic payal Encounter [facility] Date(s): 12/26/20 - 01/25/21 [facility] [address] [place] [address]- Allergies, Adverse Reactions, Alerts Substance Reaction Severity [...] Toxoid Vaccine (oldterm) 06/21/01 Given 1Result Comment: [facility]: 94908-680-37 2Result Comment: [facility] 67132-298-10 3Result Comment: [05/02/2018] [facility] # [id number] 4Result Comment: [05/31/2017] [facility] [id number] 5Result Comment: [03/16/2014] Dr. Duffy 6Result Comment: [07/01/2015] diluent [id number] 08/24/17 Merck 7Admin Note: rcvd elsewhere Medications Advair Diskus 250 mcg-50 mcg inhalation powder 1, puffs, Inhalation, 2 times a day, # 180 each, Refills 1, Tot. Refills 1, Maintenance, 10/03/20 12:43:00 EDT, Route to Pharmacy Electronically, [id number], [facility]/pharmacy #[id number], 160.5, cm, 04/19/20 11:16:00 [...] 1 tablet, By Mouth, Once, [facility] # 1 tablet, 0 Refills, Soft Stop, 12/24/20 12:01:00 EDT, Partial fill upon patient request if the prescription is for a schedule II opioid drug. Start Date: 12/24/20 Status: Ordered cetirizine 10 mg oral tablet 1 tablet = 10 mg, By Mouth, Daily, # 30 tablet, 0 Refills, Maintenance, 12/27/20 14:45:00 EDT, Tablet, [facility]/pharmacy #[id number], Partial fill upon patient [...] each, 6 Refills, Maintenance, 01/20/21 14:20:00 EDT, [place], [facility]/pharmacy #[id number], Partial fill upon patient request if the prescription is for a schedule II opioid drug., 1 sprays Nares, Both 2 times a day, 160,... Start Date: 01/20/21 Status: Ordered loratadine 10 mg oral tablet 10 mg, 1, tablet, By Mouth, Daily, # 90 tablet, Refills 0, Tot. Refills 0, Maintenance, 11/28/20 9:28:00 EDT, [id number] 160.5, cm, 11/26/20 11:39:00 EDT, Height, 55.6, kg, 03/15/19 15:53:00 EDT, Dry Weight Start Date: 11/28/20 Status: Ordered losartan 25 mg oral tablet 25 mg, 1, tablet, By Mouth, Daily, # 90 tablet, Refills 0, Tot. Refills 0, Maintenance, 11/29/20 14:27:00 EDT, [id number], 160.5, cm, 11/26/20 11:39:00 [...]
--- OUTSIDE RECORDS SUMMARY | 2023-02-05 11:21 | XMS_ITS | Continuity of Care Document ---
Author Name Unknown Organization [facility] Address [address] [place] [address]- Care Team Providers Care Log Yard Manager Name Role Phone Mary SHAY, Bridgette Archibald Primary Care Physic payal Encounter [facility] Date(s): 10/10/22 - 11/09/22 [facility] [address] [place] [address]- Attending Physician: Rubens Pinto Admitting Physician: Rubens Pinto Referring Physician: Rubens Pinto Allergies, Adverse Reactions, Alerts Substance Reaction Severity Status Augmentin nausea Active Immunizations Given and Recorded Vaccine Date Status Refusal Reason [id number] 12y+ bivalent booster vax 1 04/09/22 Given [...] 1Result Comment: [facility]: [id number] 2Result Comment: [facility]: 76185-721-28 3Result Comment: [facility]: 04579-620-77 4Result Comment: [facility]: 76248-912-31 5Result Comment: [facility] 56219-108-19 6Result Comment: [05/02/2018] [facility] # 79911-679-29 7Result Comment: [05/31/2017] [facility] 29095-530-45 8Result Comment: [03/16/2014] Dr. Duffy 9Result Comment: [facility]: 02552-377-94 10Result Comment: [07/01/2015] diluent [id number] 08/24/17 Merck 11Admin Note: rcvd elsewhere Medications [...] Nurse Name: Mary SHAY, Bridgette Archibald Position: [facility] Primary Care Physician Member Role: PCP Address: Address: [address] [place] [address] Name: Paris De Jesus LPN Position: S RN Member Role: Primary Care Nurse Name: Keya Rollins RN Position: S RN Member Role: Primary Care Nurse Name: Lisa Leone RN Position: S RN Member Role: Primary Care Nurse Care Team Related Persons Name: AMY PENDLETON Address: [address] [place] [address] Name: ILDA DOWLING Address: [address] [place] [address]
--- OUTSIDE RECORDS SUMMARY | 2023-02-05 11:21 | XMS_ITS | Continuity of Care Document ---
Author Name Unknown Organization [facility] Address [address] [place] [address]- Care Team Providers Care Body Line Finisher Name Role Phone Mary SHAY, Bridgette Archibald Primary Care Physic payal Encounter [facility] Date(s): 10/21/22 - 11/20/22 [facility] [address] [place] [address]- Allergies, Adverse Reactions, Alerts Substance Reaction Severity Status Augmentin nausea Active Immunizations Given and Recorded Vaccine Date Status Refusal Reason [id number] 12y+ bivalent booster vax 1 04/09/22 Given [...] Toxoid Vaccine (oldterm) 06/21/01 Given 1Result Comment: [facility]: [id number] 2Result Comment: [facility]: 14496-782-42 3Result Comment: [facility]: 29021-923-53 4Result Comment: [facility]: 26925-502-22 5Result Comment: [facility] [id number] 6Result Comment: [05/02/2018] [facility] # [id number] 7Result Comment: [05/31/2017] [facility] [id number] 8Result Comment: [03/16/2014] Dr. Duffy 9Result Comment: [facility]: 09636-033-24 10Result Comment: [07/01/2015] diluent [id number] 08/24/17 [employer]ck 11Admin Note: rcvd elsewhere Medications [...] Gm, 1 Refills, Maintenance, 10/16/22 10:07:00 EDT, [facility]/pharmacy #[id number], Partial fill [...] 11/17/22 8:17:00 EDT, Route to Pharmacy Electronically, [id number], 165, cm, 10/26/22 16:15:00 EDT, Height, 58.7, [...] Team Personnel Name: Luis Bojorquez RN Position: [facility] RN Member Role: Primary Care Nurse Name: Mary SHAY, Bridgette Archibald Position: [facility] Physician - Primary Care Member Role: PCP Address: Address: [address] [place] [address] Name: Paris De Jesus LPN Position: [facility] RN Member Role: Primary Care Nurse Name: Keya Rollins RN Position: S RN Member Role: Primary Care Nurse Name: Lisa Leone RN Position: [facility] RN Member Role: Primary Care Nurse Care Team Related Persons Name: AMY PENDLETON Address: [address] [place] [address] Name: ILDA DOWLING Address: [address] [place] [address]
--- OUTSIDE RECORDS SUMMARY | 2023-02-05 11:21 | XMS_ITS | Continuity of Care Document ---
Author Name Unknown Organization [facility] Address [address] [place] [address]- Care Team Providers Care Family And Consumer Science Professor Name Role Phone Mary SHAY, Bridgette Archibald Primary Care Physic payal Encounter [facility] Date(s): 02/05/20 - 06/03/[address] [address]- Discharge Disposition: A-D/C Home Attending Physician: Chase [...] Toxoid Vaccine (oldterm) 06/21/01 Given 1Result Comment: [facility]: 58170-625-06 2Result Comment: [facility] 40067-001-62 3Result Comment: [05/02/2018] [facility] # [id number] 4Result Comment: [05/31/2017] [facility] 78239-933-37 5Result Comment: [03/16/2014] Dr. Duffy 6Result Comment: [07/01/2015] diluent [id number] 08/24/17 [employer]ck 7Admin Note: rcvd elsewhere Medications albuterol 0.083% inhalation solution 3 mL = 2.5 mg, Inhalation, Every 6 hours, DX: J45.909, # 60 each, 0 Refills, Maintenance, 08/25/19 10:27:00 EST, Solution, [facility]/pharmacy #[id number], 160.5, cm, 07/19/19 13:59:00 EST, Height, 55.6, kg, 03/15/19 15:53:00 EDT, Dry Weight Start Date: 08/25/19 Status: Ordered amiodarone 200 mg oral tablet 200 mg, 1, tablet, By Mouth, Daily, Prescribed by Dr. Car (Cardiology), # 90 tablet, Refills 0,Tot. Refills 0, Maintenance, 10/20/19 10:07:00 EDT, Route to Pharmacy Electronically, [facility]/pharmacy #[id number], 160.5, cm, 07/19/19 13:59:00 EST, Height, 55.... Start Date: 10/20/19 Status: Ordered Azithromycin 5 Day Dose Pack 250 mg oral tablet 1 pack/packet, By Mouth, Once, # 6 tablet, 0 Refills, Soft Stop, 08/23/19 16:55:00 EST, Tablet, [facility]/pharmacy #[id number], 160.5, cm, 07/19/19 13:59:00 EST, [...] 5 Refills, Maintenance, 10/27/19 17:22:00 EDT, Powder, [facility]/pharmacy #[id number], Substitute for Advair RX, 1 [...] 03/27/20 10:19:00 EDT, Route to Pharmacy Electronically, [facility]/pharmacy #[id number], 160.5, cm, 12/12/19 13:19:00 EDT, [...] 04/19/20 12:01:00 EDT, Route to Pharmacy Electronically, [facility]/pharmacy #[id number], 160.5, cm, 04/19/20 11:16:00 EDT, Height, 55.6, kg, 03/15/19 15:53:00 EDT, Dry Weight Start Date: 04/19/20 Status: Ordered losartan 25 mg oral tablet 25 mg, 1, tablet, By Mouth, Daily, # 90 tablet, Refills 3, Tot. Refills 3, Maintenance, 12/20/19 15:58:00 EDT, Route to Pharmacy Electronically, [facility] ([place]), 160.5, cm, 12/12/19 13:19:00 EDT, Height, 55.6, [...] capsule, 1 Refills, Maintenance, 03/01/20 11:31:00 EDT,[facility]/pharmacy #[id number], 160.5, cm, 12/12/19 13:19:00 EDT, Height, 55.6, kg, 03/15/19 15:53:00 EDT, Dry Weight Start Date: 03/01/20 Status: Ordered Vitamin D3 = 1,000 International_Units, By Mouth, 0 Refills, Maintenance, 11/22/15 14:34:08 Start Date: 11/22/15 Status: Ordered Voltaren 1% topical gel 1 application, Topically, 4 times a day, # 100 Gm, 0 Refills, Maintenance, 07/13/19 17:07:00 EST, Gel, [facility]/pharmacy #[id number], 1 application Topically 4 times a day, 160.5, cm, 07/13/19 13:23:00 EST, Height, 55.6, kg, 03/15/19 15:53:00 EDT, Dry Weight Start Date: 07/13/19 Status: Ordered Xarelto 20 mg oral tablet See Instructions, 1 tablet by oral route every day with the evening meal, # 90 tablet, 1 Refills, Maintenance, 11/27/19 12:58:00 EDT, Tablet, [facility] ([place]), 160.5, cm, 07/19/19 13:59:00 EST, Height, 55.6, kg, 03/15/19 15:53:00 EDT, Dry We... Start Date: 11/27/19 Status: Ordered Xarelto 20 mg oral tablet See Instructions, 1 tablet by oral route every day with the evening meal, # 30 tablet, 0 Refills, Maintenance, 01/01/20 17:23:00 EDT, Tablet, [facility]/pharmacy #[id number], 160.5, cm, 12/12/19 13:19:00 EDT, [...]
--- OUTSIDE RECORDS SUMMARY | 2023-02-05 11:21 | XMS_ITS | Continuity of Care Document ---
Author Name Unknown Organization [facility] Address [address] [place] [address]- Care Team Providers Care Career Guidance Counselor Name Role Phone Mary SHAY, Bridgette Archibald Primary Care Physic payal Encounter [facility] Date(s): 04/09/22 - 04/16/22 [facility] [address] [place] [address]- Attending Physician: Not on Staff, Attending MD Referring Physician: Mary SHAY, Bridgette Archibald Allergies, Adverse Reactions, Alerts Substance Reaction Severity Status Augmentin nausea Active Immunizations Given and Recorded Vaccine Date Status Refusal Reason [id number] 12y+ bivalent booster vax 1 04/09/22 Given influenza virus vaccine, inactivated 2 04/09/22 Gi mae influenza virus vaccine, inactivated 3 04/24/21 Gi mae influenza virus vaccine, inactivated 4 04/19/20 Gi mae influenza virus vaccine, inactivated 5 04/26/19 Gi mea influenza virus vaccine, inactivated 6 05/02/18 Gi [...] 1Result Comment: [facility]: [address]-0 2Result Comment: [facility]: 11827-363-50 3Result Comment: [facility]: 06308-660-58 4Result Comment: [facility]: 56314-612-11 5Result Comment: [facility] 57303-904-51 6Result Comment: [05/02/2018] [facility] # 20488-059-39 7Result Comment: [05/31/2017] [facility] 83677-128-05 8Result Comment: [03/16/2014] Dr. Duffy 9Result Comment: [facility]: 04147-245-33 10Result Comment: [07/01/2015] diluent [id number] 08/24/17 Merck 11Admin Note: rcvd elsewhere Medications Advair Diskus 500 mcg-50 mcg inhalation powder 1, inhalation, Inhalation, 2 times a day, rinse mouth and throat after use j45.40, # 1 each, Refills 6, Tot. Refills 6, Maintenance, 01/19/22 12:24:00 EDT, Powder, Route to Pharmacy Electronically, [id number], [facility]/pharmacy #7... Start Date: 01/19/22 Status: Ordered albuterol 0.083% inhalation solution 3 mL = 2.5 mg, Inhalation, Every 6 hours, DX: J45.909, # 60 each, 0 Refills, Maintenance, 08/25/19 10:27:00 EST, Solution, [facility]/pharmacy #[id number], 160.5, cm, 07/19/19 13:59:00 EST, [...] Refills, Maintenance, 04/22/21 15:35:00 EDT, Tablet, [facility]/pharmacy #[id number], Partial fill upon patient request if the prescription is for a schedule II opioid drug., 160, cm, 01/20/21 14:22:00 EDT, Height,... Start Date: 04/22/21 Status: Ordered citalopram 20 mg oral tablet 20 mg, 1, tablet, By Mouth, Daily, # 90 tablet, Refills 1, Tot. Refills 1, Maintenance, 10/13/21 12:28:00 EDT, Route to Pharmacy Electronically, [facility]/pharmacy #[id number], 160, cm, 08/19/21 15:40:00 EST, [...] 0 Refills, Maintenance, 11/19/21 16:31:00 EDT, [facility]/pharmacy #[id number], Partial fill upon patient request [...] 9:32:00 EST, Route to Pharmacy Electronically, [facility]/pharmacy #[id number], Partial fill upon patient request if the prescription is for a schedule II o... Start Date: 07/31/21 Status: Ordered Flonase 50 mcg/inh nasal spray 2 sprays, Nares, Both, Daily in AM, # 16 Gm, 6 Refills, Maintenance, 05/16/21 10:11:00 EST, [place], [facility]/pharmacy #[id number], Partial fill upon patient request if the prescription is for a schedule II opioid drug., 2 sprays Nares, Both Daily in AM, 160, cm,... Start Date: 05/16/21 Status: Ordered loratadine 10 mg oral tablet 10 mg, 1, tablet, By Mouth, Daily, # 90 tablet, Refills 0, Tot. Refills 0, Maintenance, 11/27/21 9:50:00 EDT, Route to Pharmacy Electronically, [facility]/pharmacy #[id number], 160, cm, 08/19/21 15:40:00 EST, Height, 63, kg, 12/12/20 13:26:00 EDT, Dry Weight Start Date: 11/27/21 Status: Ordered losartan 25 mg oral tablet 25 mg, 1, tablet, By Mouth, Daily, # 90 tablet, Refills 1, Tot. Refills 1, Maintenance, 04/10/22 9:35:00 EDT, Route to Pharmacy Electronically, [facility]/pharmacy #[id number], Appointment, 166, cm, 02/13/22 15:01:00 EDT, [...] Refills 11, Route to Pharmacy Electronically, [id number], 160, cm, 08/19/21 15:40:00 EST, Height, 63, [...] 90 capsule, 1 Refills, Maintenance, 10/23/21 14:10:00 EDT,[facility]/pharmacy #[id number], 160, cm, 08/19/21 15:40:00 EST, [...] N0, ER positive, [place]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 2014 Confirmed 10/02/13 Active [...] on: 05/31/17 Sex Patient Care team information Personnel Name: Mary SHAY, Bridgette Archibald Address: Address: [address] [place] [id number]
--- OUTSIDE RECORDS SUMMARY | 2023-02-05 11:21 | XMS_ITS | Continuity of Care Document ---
Author Name Unknown Organization [facility] Address [address] [place] [address]- Care Team Providers Care Plant Sprayer Name Role Phone Mary SHAY, Bridgette Archibald Primary Care Physic payal Encounter 10/04/20 - 10/11/20 [facility] [address], [address] [place], [place] [address] Attending Physician: Bridgette Hernandez MD Admitting Physician: [...] Comment: [facility]: 48962-124-49 2Result Comment: [facility] 71774-649-23 3Result Comment: [05/02/2018] [facility] # 63999-748-36 4Result Comment: [05/31/2017] [facility] 94270-480-77 5Result Comment: [03/16/2014] Dr. Duffy 6Result Comment: [07/01/2015] diluent [id number] 08/24/17 [employer]ck 7Admin Note: rcvd elsewhere Medications Advair Diskus 250 mcg-50 mcg inhalation powder 1, puffs, Inhalation, 2 times a day, # 180 each, Refills 1, Tot. Refills 1, Maintenance, 10/03/20 12:43:00 EDT, Route to Pharmacy Electronically, [id number], [facility]/pharmacy #[id number], 160.5, cm, 04/19/20 11:16:00 EDT, Height, 55.6,... Start Date: 10/03/20 Stop Date: 04/01/21 Status: Ordered albuterol 0.083% inhalation solution 3 mL = 2.5 mg, Inhalation, Every 6 hours, DX: J45.909, # 60 each, 0 Refills, Maintenance, 08/25/19 10:27:00 EST, Solution, [facility]/pharmacy #[id number], 160.5, cm, 07/19/19 13:59:00 EST, Height, 55.6, kg, 03/15/19 15:53:00 EDT, Dry Weight Start Date: 08/25/19 Status: Ordered barium sulfate 2% oral suspension See Instructions, dispense two 450 mg bottles. Drink one 450 ml bottle at 8am, and one 450 mL bottle 90 minutes prior to procedure., # 900 mL, 0 Refills, Maintenance, 06/05/19 15:49:07 EST, [facility]/pharmacy #[id number], dispense two 450 mg bottles. [...] 11:37:00 EDT, Route to Pharmacy Electronically, [facility]/pharmacy #[id number], 160.5, cm, 04/19/20 11:16:00 EDT, [...] 12:01:00 EDT, Route to Pharmacy Electronically, [facility]/pharmacy #[id number], 160.5, cm, 04/19/20 11:16:00 EDT, Height, 55.6, kg, 03/15/19 15:53:00 EDT, Dry Weight Start Date: 04/19/20 Status: Ordered losartan 25 mg oral tablet 25 mg, 1, tablet, By Mouth, Daily, # 90 tablet, Refills 3, Tot. Refills 3, Maintenance, 12/20/19 15:58:00 EDT, Route to Pharmacy Electronically, [facility]), 160.5, cm, 12/12/19 13:19:00 EDT, Height, 55.6, [...] 90 capsule, 1 Refills, Maintenance, 03/01/20 11:31:00 EDT,[id number], 160.5, cm, 12/12/19 13:19:00 EDT, Height, 55.6, kg, 03/15/19 15:53:00 EDT, Dry Weight Start Date: 03/01/20 Status: Ordered Vitamin D3 = 1,000 International_Units, By Mouth, 0 Refills, Maintenance, 11/22/15 14:34:08 Start Date: 11/22/15 Status: Ordered Voltaren 1% topical gel 1 application, Topically, 2 times a day, for 30 days, # 100 Gm, 0 Refills, Acute 11/02/20 12:41:00 EDT, 10/03/20 12:41:00 EDT, Gel, [id number], Partial fill upon patient request [...] infiltrating ductal carcinoma, 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
--- OUTSIDE RECORDS SUMMARY | 2023-02-05 11:21 | XMS_ITS | Continuity of Care Document ---
Author Name Unknown Organization [facility] Address [address] [place] [address]- Care Team Providers Care Lift Driver Name Role Phone Mary SHAY, Bridgette Archibald Primary Care Physic payal Encounter 09/25/22 - 10/02/22 [facility] [address], [address] [place] [address]- Attending Physician: Kathy Carney Admitting Physician: Kathy Carney Referring Physician: Kathy Carney Allergies, Adverse Reactions, Alerts Substance Reaction Severity Status Augmentin nausea Active Immunizations Given and Recorded Vaccine Date Status Refusal Reason [id number] 12y+ bivalent booster vax 1 04/09/22 Given [...] Toxoid Vaccine (oldterm) 06/21/01 Given 1Result Comment: [facility]: [id number] 2Result Comment: [facility]: [id number] 3Result Comment: [facility]: [id number] 4Result Comment: [facility]: [id number] 5Result Comment: [facility] [id number] 6Result Comment: [05/02/2018] [facility] # [id number] 7Result Comment: [05/31/2017] [facility] [id number] 8Result Comment: [03/16/2014] Dr. Duffy 9Result Comment: [facility]: [id number] 10Result Comment: [07/01/2015] diluent [id number] 08/24/17 Merck 11Admin Note: rcvd elsewhere Medications Advair Diskus 500 mcg-50 mcg inhalation powder 1, inhalation, Inhalation, 2 times a day, rinse mouth and throat after use j45.40, # 1 each, Refills 6, Tot. Refills 6, Maintenance, 01/19/22 12:24:00 EDT, Powder, Route to Pharmacy Electronically, [id number], [facility]/pharmacy #[id number]... Start Date: 01/19/22 Status: Ordered [...] 1 Refills, Maintenance, 04/22/21 15:35:00 EDT, [id number] Partial fill upon patient request if the prescription is for a schedule II opioid drug., 160, cm, 01/20/21 14:22:00 EDT, Height,... Start Date: 04/22/21 Status: Ordered citalopram 20 mg oral tablet 20 mg, 1, tablet, By Mouth, Daily, # 90 tablet, Refills 1, Tot. Refills 1, Maintenance, 04/30/22 17:34:00 EST, [id number] 166, cm, 02/13/22 15:01:00 EDT, Height, [...] capsule, 0 Refills, Maintenance, 11/19/21 16:31:00 EDT, [facility]/pharmacy #[id number], Partial fill upon [...] 07/31/21 9:32:00 EST, Route to Pharmacy Electronically, [facility]/pharmacy #[id number], Partial fill upon patient request if the prescription is for a schedule II o... Start Date: 07/31/21 Status: Ordered Flonase 50 mcg/inh nasal spray 2 sprays, Nares, Both, Daily in AM, # 16 Gm, 6 Refills, Maintenance, 05/16/21 10:11:00 EST, [place], [facility]/pharmacy #[id number], Partial fill upon patient request if the prescription is for a schedule II opioid drug., 2 sprays Nares, Both Daily in AM, 160, cm,... Start Date: 05/16/21 Status: Ordered gabapentin 100 mg oral capsule 1, capsule, By Mouth, 3 times a day, # 90 capsule, Refills 0, Maintenance, 09/10/22 9:14:00 EDT, Route to Pharmacy Electronically, [id number], 166, cm, 08/31/22 11:19:00 EDT, Height, 63, kg, 12/12/20 13:26:00 EDT, Dry Weight Start Date: 09/10/22 Stop Date: 10/10/22 Status: Ordered loratadine 10 mg oral tablet 10 mg, 1, tablet, By Mouth, Daily, # 90 tablet, Refills 0, Tot. Refills 0, Maintenance, 11/27/21 9:50:00 EDT, Route to Pharmacy Electronically, [facility]/pharmacy #[id number], 160, cm, 08/19/21 15:40:00 EST, Height, 63, kg, 12/12/20 13:26:00 EDT, Dry Weight Start Date: 11/27/21 Status: Ordered losartan 25 mg oral tablet 25 mg, 1, tablet, By Mouth, Daily, # 90 tablet, Refills 1, Tot. Refills 1, Maintenance, 04/10/22 9:35:00 EDT, Route to Pharmacy Electronically, [facility]/pharmacy #[id number], Appointment, 166, cm, 02/13/22 15:01:00 EDT, [...] to Pharmacy Electronically, [id number], 160, cm, 08/19/21 15:40:00 EST, Height, 63, [...] capsule, 1 Refills, Maintenance, 05/25/22 9:54:00 EST, [facility]/pharmacy #[id number], 166, cm, 02/13/22 15:01:00 EDT, Height, [...] N0, ER positive, AR negative, 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 Results Radiology Reports * Exam Date Time Procedure Performing Provider Status 09/25/22 3:[address] Abd/Pelvis W/O + W/ IV Contrast Hebe rt , Gucci; Auth (Verified) Notes: (CT Abd/Pelvis W/O + W/ IV Contrast) Reason For Exam: hematuria;Hematuria RESULT: CT Abd/Pelvis W/O + W/ IV Contrast CT Abd/Pelvis W/O + W/ IV Contrast INDICATION: Reason: Hematuria; hematuria; Special Instructions: CT UROGRAM, Single or Recurring Future Order TECHNIQUE: Helical CT of the abdomen and pelvis was performed pre and post administration of intravenous contrast. 100 cc of Omnipaque 300 was administered intravenously. Post contrast imaging performed in separate nephrographic and pyelographic phases. The study was performed without enteric contrast. Coronal and sagittal reformatted images generated. Weight-based protocol using automatic tube modulation was used to optimize exposure parameters. COMPARISONS: Renal ultrasound, 09/19/2022. CT abdomen and pelvis, 10/04/2020 FINDINGS: Doctor Of Audiology View Findings, Lines and Tubes: None. Visualized Chest: Mild atelectasis in bilateral lung bases.. No pleural effusion. The heart is normal in size. No pericardial effusion. Diaphragm: Small fat-containing right Bochdalek hernia. Liver: Multiple subcentimeter circumscribed low-density lesions likely represent cysts (in the absence of known malignancy). Gallbladder: No CT evidence of gallbladder pathology. Bile ducts: No biliary ductal dilation. Spleen: Normal. Pancreas: Normal. Adrenal Glands: Normal. Kidneys and Ureters: Normal and symmetric in size and enhancement. Partially transverse lie of the right kidney. No hydronephrosis. Renal calculi: Multiple bilateral nonobstructive renal calculi, as well as indistinct and layering milk of calcium versus tiny stones in the right renal pelvis and several calyces. The largest stonesinclude: 7 x 6 x 5 mm right upper pole stone; 6 x 5 x 8 mm right lower pole stone; and 9 x 8 x 7 mmleft lower pole stone. These have increased in size since 2020. Renal mass: No suspicious mass. Multiple bilateral simple parapelvic cysts, which do not require dedicated follow-up.. Ureteral distention and contrast opacification: Suboptimal ureteral distention in the right mid to lower ureter and the most distal 5 cm of left lower ureter. Ureteral mass or filling defect: None. Urinary bladder: No mass. Dependent calculus in the posterior bladder to the left of midline measuring 7 x 4 x 7 mm . Possible distal additional punctate stones along the posterior bladder wall measuring 2 mm on the left (2:105) and 3 mm on the right (2:100) (versus adjacent phleboliths). Reproductive organs: Uterus is surgically absent. No adnexal mass. Stomach, Small bowel and Large Bowel: Moderate type III paraesophageal hernia is noted. Stomach andlarge and small bowel are normal in course and caliber. No obstruction or inflammatory change. Moderate retained stool in the colon. Appendix: Not seen, but no evidence of appendicitis. Peritoneum, omentum and mesentery: No ascites or pneumoperitoneum. No omental or mesenteric lesions. Lymph nodes: No enlarged lymph nodes. Blood Vessels: Moderate atherosclerotic vascular calcification. No aortic aneurysm. No evidence of venous thrombosis. Abdominal and pelvic wall: Tiny fat-containing umbilical hernia. Right inguinal hernia containing fat and trace fluid. Otherwise unremarkable. Bones: No acute abnormality. Degenerative changes of the lumbar spine. Mild stairstep anterolisthesis of L3 on L4 and L4 on L5 without spondylolisthesis. Mild chronic loss of height of the L4 vertebral body, unchanged. 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 IMPRESSION: 1. No mass, obstruction, or other acute abnormality. 2. Nonobstructive stones in bilateral kidneys and bladder, increased in size and number since 2020. 3. Moderate paraesophageal hernia. WSN: [id number] Ordering Physician: Kathy Magana Dictated By: Sofie Ramirez MD Dictated Date/Time: 09/25/22 3:41 pm Reviewed By: Sofie Ramirez MD Signed By: Sofie Ramirez MD Signed Date/Time: 09/25/22 3:41 pm Transcribed By: MERLY Transcribed Date/Time: 09/25/22 3:15 pm Social History Social History Type Response Smoking Status Former smoker; Tobac co user in household: No; Other: Quit 30 years ago; Started at 16 YO 1/2 pack daily; entered on: 05/31/[address] Abdomen and Pelvis WO and W contrast IV * [facility] , CIS S: TRANSCRIBE Sofie Ramirez MD: VERIFY Event Display: Result: Authored Date: [id number] CT Abd/Pelvis W/O + W/ IV Contrast INDICATION: Reason: Hematuria; hematuria; Special Instructions: CT UROGRAM, Single or Recurring Future Order TECHNIQUE: Helical CT of the abdomen and pelvis was performed pre and post administration of intravenous contrast. 100 cc of Omnipaque 300 was administered intravenously. Post contrast imaging performed in separate nephrographic and pyelographic phases. The study was performed without enteric contrast. Coronal and sagittal reformatted images generated. Weight-based protocol using automatic tube modulation was used to optimize exposure parameters. COMPARISONS: Renal ultrasound, 09/19/2022. CT abdomen and pelvis, 10/04/2020 FINDINGS: Doctor Of Audiology View Findings, Lines and Tubes: None. Visualized Chest: Mild atelectasis in bilateral lung bases.. No pleural effusion. The heart is normal in size. No pericardial effusion. Diaphragm: Small fat-containing right Bochdalek hernia. Liver: Multiple subcentimeter circumscribed low-density lesions likely represent cysts (in the absence of known malignancy). Gallbladder: No CT evidence of gallbladder pathology. Bile ducts: No biliary ductal dilation. Spleen: Normal. Pancreas: Normal. Adrenal Glands: Normal. Kidneys and Ureters: Normal and symmetric in size and enhancement. Partially transverse lie of the right kidney. No hydronephrosis. Renal calculi: Multiple bilateral nonobstructive renal calculi, as well as indistinct and layering milk of calcium versus tiny stones in the right renal pelvis and several calyces. The largest stonesinclude: 7 x 6 x 5 mm right upper pole stone; 6 x 5 x 8 mm right lower pole stone; and 9 x 8 x 7 mmleft lower pole stone. These have increased in size since 2020. Renal mass: No suspicious mass. Multiple bilateral simple parapelvic cysts, which do not require dedicated follow-up.. Ureteral distention and contrast opacification: Suboptimal ureteral distention in the right mid to lower ureter and the most distal 5 cm of left lower ureter. Ureteral mass or filling defect: None. Urinary bladder: No mass. Dependent calculus in the posterior bladder to the left of midline measuring 7 x 4 x 7 mm . Possible distal additional punctate stones along the posterior bladder wall measuring 2 mm on the left (2:105) and 3 mm on the right (2:100) (versus adjacent phleboliths). Reproductive organs: Uterus is surgically absent. No adnexal mass. Stomach, Small bowel and Large Bowel: Moderate type III paraesophageal hernia is noted. Stomach andlarge and small bowel are normal in course and caliber. No obstruction or inflammatory change. Moderate retained stool in the colon. Appendix: Not seen, but no evidence of appendicitis. Peritoneum, omentum and mesentery: No ascites or pneumoperitoneum. No omental or mesenteric lesions. Lymph nodes: No enlarged lymph nodes. Blood Vessels: Moderate atherosclerotic vascular calcification. No aortic aneurysm. No evidence of venous thrombosis. Abdominal and pelvic wall: Tiny fat-containing umbilical hernia. Right inguinal hernia containing fat and trace fluid. Otherwise unremarkable. Bones: No acute abnormality. Degenerative changes of the lumbar spine. Mild stairstep anterolisthesis of L3 on L4 and L4 on L5 without spondylolisthesis. Mild chronic loss of height of the L4 vertebral body, unchanged. 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 IMPRESSION: 1. No mass, obstruction, or other acute abnormality. 2. Nonobstructive stones in bilateral kidneys and bladder, increased in size and number since 2020. 3. Moderate paraesophageal hernia. WSN: [id number] Ordering Physician: Kathy Magana Dictated By: Sofie Ramirez MD Dictated Date/Time: 09/25/22 3:41 pm Reviewed By: Sofie Ramirez MD Signed By: Sofie Ramirze MD Signed Date/Time: 09/25/22 3:41 pm Transcribed By: MERLY Transcribed Date/Time: 09/25/22 3:15 pm Patient Care team information Care Team Personnel Name: Mary SHAY, Bridgette Archibald Position: S Primary Care Physician Member Role: PCP Address: Address: [address] [place] [address]- Care Team Related Persons Name: AMY PENDLETON Address: [address] [place] [address] Name: ILDA DOWLING Address: [address] [place] [address]
--- OUTSIDE RECORDS SUMMARY | 2023-02-05 11:21 | XMS_ITS | Continuity of Care Document ---
Author Name Unknown Organization [facility] Address [address] [place] [address]- Care Team Providers Care Manager Basketball Name Role Phone Mary SHAY, Bridgette Archibald Primary Care Physic payal Encounter [facility] Date(s): 11/18/22 - 12/18/22 [facility] [address] [place] [address]- Allergies, Adverse Reactions, Alerts Substance Reaction Severity Status Augmentin nausea Active Immunizations Given and Recorded Vaccine Date Status Refusal Reason [id number] 12y+ bivalent booster vax 1 04/09/22 Given [...] [facility]: [id number] 2Result Comment: [facility]: [id number] 3Result Comment: [facility]: [phone] 4Result Comment: [facility]: [id number] 5Result Comment: [facility] [phone] 6Result Comment: [05/02/2018] [facility] # [id number] 7Result Comment: [05/31/2017] [facility] [phone] 8Result Comment: [03/16/2014] Dr. Duffy 9Result Comment: [facility]: [id number] 10Result Comment: [07/01/2015] diluent [id number] 08/24/17 Merck 11Admin Note: rcvd elsewhere Medications [...] Gm, 1 Refills, Maintenance, 10/16/22 10:07:00 EDT, [facility]/pharmacy #[id number], Partial fill upon patient request if [...] Mouth, Once, Administered after procedure - LOT [id number] EXP 01/2024, # 1 tablet, 0 Refills, [...] 0 Refills, Maintenance, 12/15/22 9:34:00 EDT, Tablet, [facility]/pharmacy #[id number], Partial fill upon patient request if [...] 11/17/22 8:17:00 EDT, Route to Pharmacy Electronically, [id number], 165, cm, 10/26/22 16:15:00 EDT, Height, 58.7, kg, 10/21/22 21:15:00 EDT, Dry Weight Start Date: 11/17/22 Stop Date: 12/17/22 Status: Ordered losartan 25 mg oral tablet 1 tablet = 25 mg, By Mouth, Daily, # 30 tablet, 0 Refills, Maintenance, 12/15/22 9:35:00 EDT, Tablet, [facility]/pharmacy #[id number], Partial fill upon patient request if [...] T2 N0, ER positive, OR negative, 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 Social History Social History Type Response Smoking Status Former smoker; Tobac co user in household: No; Other: Quit 30 years ago; Started at 16 YO 1/2 pack daily; entered on: 05/31/17 Sex Patient Care team information Care Team Personnel Name: Luis Bojorquez RN Position: [facility] RN Member Role: Primary Care Nurse Name: Mary SHAY, Bridgette Archibald Position: [facility] Physician - Primary Care Member Role: PCP [facility]: [facility] [place] [place] [address] Name: Paris De Jesus LPN Position: [facility] RN Member Role: Primary Care Nurse Name: Keya Rollins RN Position: [facility] RN Member Role: Primary Care Nurse Name: Lisa Leone RN Position: [facility] RN Member Role: Primary Care Nurse Care Team Related Persons Name: AMY PENDLETON Address: [address] [place] [address] Name: ILDA DOWLING Address: [address] [place] [address]
--- OUTSIDE RECORDS SUMMARY | 2023-02-05 11:21 | XMS_ITS | Continuity of Care Document ---
Author Name Unknown Organization [facility] Address [address] [place] [address]- Care Team Providers Care Wine Steward Name Role Phone Mary SHAY, Bridgette Archibald Primary Care Physic payal Encounter [facility] Date(s): 07/13/19 - 07/20/19 [facility] [address] [place] [address] Encounter Diagnosis Knee pain, left(Discharge Diagnosis) - 07/13/19 Attending Physician: Mary SHAY, Bridgette Archibald Allergies, [...] 06/21/01 Given 1Result Comment: [facility] [phone] 2Result Comment: [05/02/2018] [facility] # [phone] 3Result Comment: [05/31/2017] [facility] [phone] 4Result Comment: [03/16/2014] Dr. Duffy 5Result Comment: [07/01/2015] diluent [id number] 08/24/17 Merck 6Admin Note: rcvd elsewhere Medications amiodarone 200 mg oral tablet 200 mg, 1, tablet, By Mouth, Daily, Prescribed by Dr. Car (Cardiology), # 90 tablet, Refills 0,Tot. Refills 0, Maintenance, 03/24/19 17:32:08 EDT, [id number] Start Date: 03/24/19 Stop Date: 06/24/20 Status: Ordered barium sulfate 2% oral suspension See Instructions, dispense two 450 mg bottles. Drink one 450 ml bottle at 8am, and one 450 mL bottle 90 minutes prior to procedure., # 900 mL, 0 Refills, Maintenance, 06/05/19 15:49:07 EST, [facility]/pharmacy #[id number], dispense two 450 mg bottles. ; Drink on... Start Date: 06/05/19 Status: Ordered Breo Ellipta 100 mcg-25 mcg/inh inhalation powder 1 puffs, Inhalation, Daily, # 30 each, 1 Refills, Maintenance, 07/12/19 15:53:00 EST, Powder, [facility], Substitute for Advair RX, 1 puffs Inhalation Daily, 160.5, cm, 05/25/19 12:48:00 EST, Height, 55.6, kg, 03/15/19 15:53:00 ED... Start Date: 07/12/19 Status: Ordered citalopram 20 mg oral tablet 20 mg, 1, tablet, By Mouth, Daily, # 90 tablet, Refills 1, Tot. Refills 1, Maintenance, 03/08/19 9:37:54 EDT, Route to Pharmacy Electronically, [id number], [facility] Start Date: 03/08/19 Status: Ordered [...] 07/13/18 16:42:32 EST, Route to Pharmacy Electronically, [id number], [facility] Start Date: 07/13/18 Stop Date: 07/08/19 Status: [...] 90 capsule, 3 Refills, Maintenance, 07/19/19 14:49:00 EST,[facility] 160.5, cm, 07/19/19 13:59:00 EST, Height, 55.6, kg, 03/15/19 15:53:00 EDT, Dry Weight Start Date: 07/19/19 Status: Ordered Vitamin D3 = 1,000 International_Units, By Mouth, 0 Refills, Maintenance, 11/22/15 14:34:08 Start Date: 11/22/15 Status: Ordered Voltaren 1% topical gel 1 application, Topically, 4 times a day, # 100 Gm, 0 Refills, Maintenance, 07/13/19 17:07:00 EST, Gel, [facility]/pharmacy #[id number], 1 application Topically 4 times [...] infiltrating ductal carcinoma, 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, ER positive, [place]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, 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 Diagnosis Diagnosis Type Effective Dates Health Status Cl inical Service Informant Knee pain, left Discharge Diagnosis 07/13/19 Vital Signs Most recent to oldest [Reference Range]: 1 Height 160.5 cm (07/13/19 1:23 PM) Weight 55.4 kg 1 (07/13/19 1:23 PM) Oxygen Saturation [94-100 %] 98 % (07/13/19 1:23 PM) Pulse Rate [55-90 bpm] 96 bpm *H* (07/13/19 1:23 PM) Body Mass Index [18.5-24.99] 21.51 (07/13/19 1:23 PM) Blood Pressure [90-138/55-84 mm Hg] 124/ 72mm Hg (07/13/19 1:23 PM) Mode of Delivery (Oxygen) Room air (07/13/19 1:23 PM) Blood pressure sites Arm, right (07/13/19 1:23 PM) Weight Obtained Via Standing scale (07/13/19 1:23 PM) 1Result Comment: with shoes Social History Social History Type Response Smoking Status Former smoker; Tobac co user in household: No; Other: Quit 30 years ago; Started at 16 YO 2 pack daily; entered on: 05/31/17 Sex
--- OUTSIDE RECORDS SUMMARY | 2023-02-05 11:22 | XMS_ITS | Continuity of Care Document ---
Author Name Unknown Organization [facility] Address [address] [place] [address]- Care Team Providers Care Compressed Air Pile Driver Operator Name Role Phone Mary SHAY, Bridgette Archibald Primary Care Physic payal [place] [facility] [place]21 - 03/01/22 [facility] [address] [place] [address] [place] [address]- Attending Physician: Renata Bowens MD Admitting Physician: Renata Bowens MD Referring Physician: Bridgette Hernandez MD Allergies, [...] Vaccine (oldterm) 06/21/01 Given 1Result Comment: [facility]: [id number] 2Result Comment: [facility]: [id number] 3Result Comment: [facility]: [id number] 4Result Comment: [facility] [id number] 5Result Comment: [05/02/2018] [facility] # [id number] 6Result Comment: [05/31/2017] [facility] [id number] 7Result Comment: [03/16/2014] Dr. Duffy 8Result Comment: [07/01/2015] diluent [id number] 08/24/17 Merck 9Admin Note: rcvd elsewhere Medications Advair Diskus 500 mcg-50 mcg inhalation powder 1, inhalation, Inhalation, 2 times a day, rinse mouth and throat after use j45.40, # 1 each, Refills 6, Tot. Refills 6, Maintenance, 01/19/22 12:24:00 EDT, Powder, Route to Pharmacy Electronically, [id number], [facility]/pharmacy #7... Start Date: 01/19/22 Status: Ordered albuterol 0.083% inhalation solution 3 mL = 2.5 mg, Inhalation, Every 6 hours, DX: J45.909, # 60 each, 0 Refills, Maintenance, 08/25/19 10:27:00 EST, Solution, [facility]/pharmacy #[id number], 160.5, cm, 07/19/19 13:59:00 EST, [...] 1 Refills, Maintenance, 04/22/21 15:35:00 EDT, [id number] Partial fill upon patient request if the prescription is for a schedule II opioid drug., 160, cm, 01/20/21 14:22:00 EDT, Height,... Start Date: 04/22/21 Status: Ordered citalopram 20 mg oral tablet 20 mg, 1, tablet, By Mouth, Daily, # 90 tablet, Refills 1, Tot. Refills 1, Maintenance, 10/13/21 12:28:00 EDT, [id number], 160, cm, 08/19/21 15:40:00 EST, [...] capsule, 0 Refills, Maintenance, 11/19/21 16:31:00 EDT, [facility]/pharmacy #[id number], Partial fill upon patient request [...] 07/31/21 9:32:00 EST, Route to Pharmacy Electronically, [facility]/pharmacy #[id number], Partial fill upon patient request if the prescription is for a schedule II o... Start Date: 07/31/21 Status: Ordered Flonase 50 mcg/inh nasal spray 2 sprays, Nares, Both, Daily in AM, # 16 Gm, 6 Refills, Maintenance, 05/16/21 10:11:00 EST, [place], [facility]/pharmacy #7111, Partial fill upon patient request if the prescription is for a schedule II opioid drug., 2 sprays Nares, Both Daily in AM, 160, cm,... Start Date: 05/16/21 Status: Ordered loratadine 10 mg oral tablet 10 mg, 1, tablet, By Mouth, Daily, # 90 tablet, Refills 0, Tot. Refills 0, Maintenance, 11/27/21 9:50:00 EDT, Route to Pharmacy Electronically, [facility]/pharmacy #[id number], 160, cm, 08/19/21 15:40:00 EST, Height, 63, kg, 12/12/20 13:26:00 EDT, Dry Weight Start Date: 11/27/21 Status: Ordered losartan 25 mg oral tablet 25 mg, 1, tablet, By Mouth, Daily, # 90 tablet, Refills 0, Tot. Refills 0, Maintenance, 01/26/22 17:51:00 EDT, Route to Pharmacy Electronically, [facility]/pharmacy #[id number], Appointment, 166, cm, 12/18/21 13:30:00 [...] tablet, Refills 11, Route to Pharmacy Electronically, [facility], 160, cm, 08/19/21 15:40:00 EST, Height, 63, [...] 90 capsule, 1 Refills, Maintenance, 10/23/21 14:10:00 EDT,[id number], 160, cm, 08/19/21 15:40:00 EST, [...] T2 N0, ER positive, [place]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 2013(Confirmed) 10/02/13 Active Localized [...] Personnel Name: Mary SHAY, Bridgette Archibald Address: [address] [place] [id number]
--- OUTSIDE RECORDS SUMMARY | 2023-02-05 11:22 | XMS_ITS | Continuity of Care Document ---
Author Name Unknown Organization [facility] Address [address] [facility] [place] [address]- Care Team Providers Care Blowing Weasand Name Role Phone Mary SHAY, Bridgette Archibald Primary Care Physic payal [place] [facility] [place]16[place]22 [place] 09/23/22 [facility] [address] [place] [address]- Attending Physician: Miguel Martinez MD Admitting Physician: Miguel Martinez MD Referring Physician: Bridgette Hernandez MD Allergies, Adverse Reactions, Alerts Substance Reaction Severity Status Augmentin nausea Active Immunizations Given and Recorded Vaccine Date Status Refusal Reason [id number] 12y+ bivalent booster vax 1 04/09/22 Given [...] Given 1Result Comment: [facility]: [id number] 2Result Comment: [facility]: [id number] 3Result Comment: [facility]: 61002-262-96 4Result Comment: [facility]: [id number] 5Result Comment: [facility] [id number] 6Result Comment: [05/02/2018] [facility] # [phone] 7Result Comment: [05/31/2017] [facility] [phone] 8Result Comment: [03/16/2014] Dr. Duffy 9Result Comment: [facility]: [phone] 10Result Comment: [07/01/2015] diluent [id number] 08/24/17 Merck 11Admin Note: rcvd elsewhere Medications Advair Diskus 500 mcg-50 mcg inhalation powder 1, inhalation, Inhalation, 2 times a day, rinse mouth and throat after use j45.40, # 1 each, Refills 6, Tot. Refills 6, Maintenance, 01/19/22 12:24:00 EDT, Powder, Route to Pharmacy Electronically, [id number], [facility]/pharmacy #7... Start Date: 01/19/22 Status: Ordered albuterol 0.083% inhalation solution 3 mL = 2.5 mg, Inhalation, Every 6 hours, DX: J45.909, # 60 each, 0 Refills, Maintenance, 08/25/19 10:27:00 EST, Solution, [facility]/pharmacy #[id number], 160.5, cm, 07/19/19 13:59:00 EST, Height, 55.6, kg, 03/15/19 15:53:00 EDT, Dry Weight Start Date: 08/25/19 Status: Ordered cetirizine 10 mg oral tablet 1 tablet = 10 mg, By Mouth, Daily, # 30 tablet, 1 Refills, Maintenance, 04/22/21 15:35:00 EDT, Tablet, [id number] Partial fill upon patient request if the prescription is for a schedule II opioid drug., 160, cm, 01/20/21 14:22:00 EDT, Height,... Start Date: 04/22/21 Status: Ordered citalopram 20 mg oral tablet 20 mg, 1, tablet, By Mouth, Daily, # 90 tablet, Refills 1, Tot. Refills 1, Maintenance, 04/30/22 17:34:00 EST, [facility] Electronically, [id number], 166, cm, 02/13/22 15:01:00 EDT, Height, [...] capsule, 0 Refills, Maintenance, 11/19/21 16:31:00 EDT, [facility]/pharmacy #7111, Partial fill upon patient request if [...] 07/31/21 9:32:00 EST, Route to Pharmacy Electronically, [facility]/pharmacy #7111, Partial fill upon patient request if the prescription is for a schedule II o... Start Date: 07/31/21 Status: Ordered Flonase 50 mcg/inh nasal spray 2 sprays, Nares, Both, Daily in AM, # 16 Gm, 6 Refills, Maintenance, 05/16/21 10:11:00 EST, [place], [facility]/pharmacy #7111, Partial fill upon patient request if the prescription is for a schedule II opioid drug., 2 sprays Nares, Both Daily in AM, 160, cm,... Start Date: 05/16/21 Status: Ordered gabapentin 100 mg oral capsule 1, capsule, By Mouth, 3 times a day, # 90 capsule, Refills 0, Maintenance, 09/10/22 9:14:00 EDT, Route to Pharmacy Electronically, [facility] STORE 27049, 166, cm, 08/31/22 11:19:00 EDT, Height, 63, kg, 12/12/20 13:26:00 EDT, Dry Weight Start Date: 09/10/22 Stop Date: 10/10/22 Status: Ordered loratadine 10 mg oral tablet 10 mg, 1, tablet, By Mouth, Daily, # 90 tablet, Refills 0, Tot. Refills 0, Maintenance, 11/27/21 9:50:00 EDT, Route to Pharmacy Electronically, [facility]/pharmacy #[id number], 160, cm, 08/19/21 15:40:00 EST, Height, 63, kg, 12/12/20 13:26:00 EDT, Dry Weight Start Date: 11/27/21 Status: Ordered losartan 25 mg oral tablet 25 mg, 1, tablet, By Mouth, Daily, # 90 tablet, Refills 1, Tot. Refills 1, Maintenance, 04/10/22 9:35:00 EDT, Route to Pharmacy Electronically, [facility]/pharmacy #7111, Appointment, 166, cm, 02/13/22 15:01:00 EDT, [...] tablet, Refills 11, Route to Pharmacy Electronically, [facility], 160, cm, 08/19/21 15:40:00 EST, Height, 63, [...] capsule, 1 Refills, Maintenance, 05/25/22 9:54:00 EST, [facility]/pharmacy #[id number], 166, cm, 02/13/22 15:01:00 EDT, Height, [...] N0, ER positive, [place] negative, 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 Vital Signs Most recent to oldest [Reference Range]: 1 Height 166 cm (09/16/22 12:58 PM) Weight 59.9 kg (09/16/22 12:58 PM) Pulse Rate [55-90 bpm] 63 bpm (09/16/22 12:58 PM) Body Mass Index [18.5-24.99 kg/m2] 21.74 kg/m2 (09/16/22 12:58 PM) Blood Pressure [90-138/55-84 mm Hg] 120/ 63mm Hg (09/16/22 12:58 PM) Blood pressure sites Arm, right (09/16/22 12:58 PM) Dry Weight 59.9 kg (09/16/22 12:58 PM) Weight Obtained Via Patient/family state d (09/16/22 12:58 PM) Dry Weight Obtained Via Patient/family s tated (09/16/22 12:58 PM) Social History Social History Type Response Smoking Status Former smoker; Tobac co user in household: No; Other: Quit 30 years ago; Started at 16 YO 1/2 pack daily; entered on: 05/31/17 Sex Patient Care team information Care Team Personnel Name: Mary SHAY, Bridgette Archibald Position: S Primary Care Physician Member Role: PCP Address: Address: [address] [place] [address] Care Team Related Persons Name: AMY PENDLETON Address: [address] [place] [address] Name: ILDA DOWLING Address: [address] [place] [address]
--- OUTSIDE RECORDS SUMMARY | 2023-02-05 11:22 | XMS_ITS | Continuity of Care Document ---
Author Name Unknown Organization [facility] Address [address] [place] [address]- Care Team Providers Care Slurry Man Name Role Phone Mary SHAY, Bridgette Archibald Primary Care Physic payal Encounter [facility] Date(s): 03/26/21 - 04/25/21 [facility] [address] [place] [address]- [place] Allergies, Adverse Reactions, Alerts Substance Reaction [...] Toxoid Vaccine (oldterm) 06/21/01 Given 1Result Comment: [facility]: [id number] 2Result Comment: [facility]: [id number] 3Result Comment: [facility]: [phone] 4Result Comment: [facility] [phone] 5Result Comment: [05/02/2018] [facility] # [id number] 6Result Comment: [05/31/2017] [facility] [phone] 7Result Comment: [03/16/2014] Dr. Duffy 8Result Comment: [07/01/2015] diluent [id number] 08/24/17 [employer]ck 9Admin Note: rcvd elsewhere Medications Advair Diskus 250 mcg-50 mcg inhalation powder 1, puffs, Inhalation, 2 times a day, # 180 each, Refills 1, Tot. Refills 1, Maintenance, 10/03/20 12:43:00 EDT, Route to Pharmacy Electronically, [id number], [facility]/pharmacy #[id number], 160.5, cm, 04/19/20 11:16:00 EDT, Height, 55.6,... Start Date: 10/03/20 Stop Date: 04/01/21 Status: Ordered albuterol 0.083% inhalation solution 3 mL = 2.5 mg, Inhalation, Every 6 hours, DX: J45.909, # 60 each, 0 Refills, Maintenance, 08/25/19 10:27:00 EST, Solution, [facility]/pharmacy #[id number], 160.5, cm, 07/19/19 13:59:00 EST, Height, 55.6, kg, 03/15/19 15:53:00 EDT, Dry Weight Start Date: 08/25/19 Status: Ordered Azithromycin 5 Day Dose Pack 250 mg oral tablet 1 pack/packet, By Mouth, Once, # 6 tablet, 0 Refills, Soft Stop, 04/10/21 16:39:00 EDT, Tablet, [facility]/pharmacy #[id number], Partial fill upon patient request [...] Refills, Maintenance, 04/22/21 15:35:00 EDT, Tablet, [facility]/pharmacy #[id number], Partial fill upon patient request if the prescription is for a schedule II opioid drug., 160, cm, 01/20/21 14:22:00 EDT, Height,... Start Date: 04/22/21 Status: Ordered citalopram 20 mg oral tablet 20 mg, 1, tablet, By Mouth, Daily, # 90 tablet, Refills 1, Tot. Refills 1, Maintenance, 03/26/21 14:13:00 EDT, Route to Pharmacy Electronically, [facility]/pharmacy #[id number], 160, cm, 01/20/21 14:22:00 EDT, [...] 12/11/20 15:53:00 EDT, [id number] Partial fill upon patient request if the prescription is for a schedule II... Start Date: 12/11/20 Status: Ordered Flonase 50 mcg/inh nasal spray See Instructions, 2 sprays Nares twice daily x 1 week, then once daily x 1-2 weeks until symptoms improve, # 16 Gm, 0 Refills, Maintenance, 04/22/21 15:36:00 EDT, [place], [facility]/pharmacy #7111, Partial fill upon patient request if the prescription is for... Start Date: 04/22/21 Status: Ordered loratadine 10 mg oral tablet 10 mg, 1, tablet, By Mouth, Daily, # 90 tablet, Refills 0, Tot. Refills 0, Maintenance, 11/28/20 9:28:00 EDT, [facility] Electronically, [id number], 160.5, cm, 11/26/20 11:39:00 EDT, Height, 55.6, kg, 03/15/19 15:53:00 EDT, Dry Weight Start Date: 11/28/20 Status: Ordered losartan 25 mg oral tablet 25 mg, 1, tablet, By Mouth, Daily, # 90 tablet, Refills 1, Tot. Refills 1, Maintenance, 03/26/21 13:41:00 EDT, [facility] to Pharm[facility] Electronically, [id number], App[facility], 160, cm, [...] 90 capsule, 0 Refills, Maintenance, 04/09/21 14:31:00 EDT,[id number], 160, cm, 01/20/21 14:22:00 EDT, [...] T2 N0, ER positive, [place]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 2013(Confirmed) 10/02/13 Active Osteoporosis(Confirmed) [...]
--- OUTSIDE RECORDS SUMMARY | 2023-02-05 11:22 | XMS_ITS | Continuity of Care Document ---
Author Name Unknown Organization [facility] Address [address] [place] [address]- Care Team Providers Care Shaker Tender Name Role Phone Mary SHAY, Bridgette Archibald Primary Care Physic payal Encounter [facility] Date(s): 03/04/21 - 05/31/21 [facility] [address] [place] [address]- Attending Physician: Hussein Arnold MD Admitting Physician: [...] Given 1Result Comment: [facility]: [id number] 2Result Comment: [facility]: [id number] 3Result Comment: [facility]: [id number] 4Result Comment: [facility] [id number] 5Result Comment: [05/02/2018] [facility] # [id number] 6Result Comment: [05/31/2017] [facility] [id number] 7Result Comment: [03/16/2014] Dr. Duffy 8Result Comment: [07/01/2015] diluent [id number] 08/24/17 [employer]ck 9Admin Note: rcvd elsewhere Medications albuterol 0.083% inhalation solution 3 mL = 2.5 mg, Inhalation, Every 6 hours, DX: J45.909, # 60 each, 0 Refills, Maintenance, 08/25/19 10:27:00 EST, Solution, [facility]/pharmacy #[id number], 160.5, cm, 07/19/19 13:59:00 EST, Height, 55.6, kg, 03/15/19 15:53:00 EDT, Dry Weight Start Date: 08/25/19 Status: Ordered Azithromycin 5 Day Dose Pack 250 mg oral tablet 1 pack/packet, By Mouth, Once, # 6 tablet, 0 Refills, Soft Stop, 04/10/21 16:39:00 EDT, Tablet, [facility]/pharmacy #[id number], Partial fill upon [...] 1 Refills, Maintenance, 04/22/21 15:35:00 EDT, Tablet, [facility]/pharmacy #7111, Partial fill upon patient request if the prescription is for a schedule II opioid drug., 160, cm, 01/20/21 14:22:00 EDT, Height,... Start Date: 04/22/21 Status: Ordered citalopram 20 mg oral tablet 20 mg, 1, tablet, By Mouth, Daily, # 90 tablet, Refills 1, Tot. Refills 1, Maintenance, 03/26/21 14:13:00 EDT, Route to Pharmacy Electronically, [facility]/pharmacy #[id number], 160, cm, 01/20/21 [...] 12/11/20 15:53:00 EDT, [id number] fill upon patient request if the prescription is for a schedule II... Start Date: 12/11/20 Status: Ordered loratadine 10 mg oral tablet 10 mg, 1, tablet, By Mouth, Daily, # 90 tablet, Refills 0, Tot. Refills 0, Maintenance, 11/28/20 9:28:00 EDT, [id number], 160.5, cm, 11/26/20 11:39:00 EDT, Height, 55.6, kg, 03/15/19 15:53:00 EDT, Dry Weight Start Date: 11/28/20 Status: Ordered losartan 25 mg oral tablet 25 mg, 1, tablet, By Mouth, Daily, # 90 tablet, Refills 1, Tot. Refills 1, Maintenance, 03/26/21 13:41:00 EDT, [facility]ically, [id number], 160, cm, 01/20/21 [...] 90 capsule, 0 Refills, Maintenance, 04/09/21 14:31:00 EDT,[facility]/pharm[facility] #[id number], 160, cm, 01/20/21 [...]
--- OUTSIDE RECORDS SUMMARY | 2023-02-05 11:22 | XMS_ITS | Continuity of Care Document ---
Author Name Unknown Organization [facility] Address [address] [facility] [place] [address]- Care Team Providers Care Esthetician/Spa Coordinator Name Role Phone Mary SHAY, Bridgette Archibald Primary Care Physic payal Encounter [facility] Date(s): 12/24/20 - 01/23/21 [facility] [address] [place] [address]- Attending Physician: Rubens Pinto Admitting Physician: AdmtrRubens [...] Given 1Result Comment: [facility]: [id number] 2Result Comment: [facility] [id number] 3Result Comment: [05/02/2018] [facility] # [id number] 4Result Comment: [05/31/2017] [facility] [id number] 5Result Comment: [03/16/2014] Dr. Duffy 6Result Comment: [07/01/2015] diluent [id number] 08/24/17 [employer]ck 7Admin Note: rcvd elsewhere Medications Advair Diskus 250 mcg-50 mcg inhalation powder 1, puffs, Inhalation, 2 times a day, # 180 each, Refills 1, Tot. Refills 1, Maintenance, 10/03/20 12:43:00 EDT, Route to Pharmacy Electronically, [id number], [facility]/pharmacy #[id number], 160.5, cm, 04/19/20 11:16:00 EDT, Height, 55.6,... Start Date: 10/03/20 Stop Date: 04/01/21 Status: Ordered albuterol 0.083% inhalation solution 3 mL = 2.5 mg, Inhalation, Every 6 hours, DX: J45.909, # 60 each, 0 Refills, Maintenance, 08/25/19 10:27:00 EST, Solution, [facility]/pharmacy #[id number], 160.5, cm, 07/19/19 13:59:00 [...] 0 Refills, Maintenance, 12/27/20 14:45:00 EDT, Tablet, [facility]/pharmacy #[id number], Partial fill upon patient request if the prescription is for a schedule II opioid drug., 160, cm, 12/27/20 13:23:00 EDT, Height,... Start Date: 12/27/20 Status: Ordered citalopram 20 mg oral tablet 20 mg, 1, tablet, By Mouth, Daily, # 90 tablet, Refills 1, Tot. Refills 1, Maintenance, 09/30/20 11:37:00 EDT, Route to Pharmacy Electronically, [facility]/pharmacy #[id number], 160.5, cm, 04/19/20 11:16:00 [...] 12/11/20 15:53:00 EDT, Route to Pharmacy Electronically, [facility]/pharmacy #[id number], Partial fill upon patient request if the prescription is for a schedule II... Start Date: 12/11/20 Status: Ordered Flonase 50 mcg/inh nasal spray 1 sprays, Nares, Both, 2 times a day, # 1 each, 6 Refills, Maintenance, 01/20/21 14:20:00 EDT, [place] Partial fill upon patient request if the prescription is for a schedule II opioid drug., 1 sprays Nares, Both 2 times a day, 160,... Start Date: 01/20/21 Status: Ordered loratadine 10 mg oral tablet 10 mg, 1, tablet, By Mouth, Daily, # 90 tablet, Refills 0, Tot. Refills 0, Maintenance, 11/28/20 9:28:00 EDT, [facility] Electronically, [id number], 160.5, cm, 11/26/20 11:39:00 EDT, Height, 55.6, kg, 03/15/19 15:53:00 EDT, Dry Weight Start Date: 11/28/20 Status: Ordered losartan 25 mg oral tablet 25 mg, 1, tablet, By Mouth, Daily, # 90 tablet, Refills 0, Tot. Refills 0, Maintenance, 11/29/20 14:27:00 EDT, [facility] Electronically, [id number], [facility], 160.5, cm, 11/26/20 11:39:00 EDT, [...] T2 N0, ER positive, [place]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 2013(Confirmed) 10/02/13 Active Osteoporosis(Confirmed) [...]
--- OUTSIDE RECORDS SUMMARY | 2023-02-05 11:22 | XMS_ITS | Continuity of Care Document ---
Author Name Unknown Organization [facility] Address [address] [place] [address]- Care Team Providers Care Ore Grader Name Role Phone Mary SHAY, Bridgette Archibald Primary Care Physic payal [place] [facility] [place] 12/20/22 [facility] [address] [place] [address]- Attending Physician: Rubens Pinto Admitting Physician: Rubens Pinto Referring Physician: AdmtrRubens Allergies, Adverse Reactions, Alerts Substance Reaction Severity Status Augmentin nausea Active Immunizations Given and Recorded Vaccine Date Status Refusal Reason [id number] 12y+ bivalent booster vax 1 04/09/22 Given [...] Toxoid Vaccine (oldterm) 06/21/01 Given 1Result Comment: [facility]: [address]-5 2Result Comment: [facility]: 15463-560-39 3Result Comment: [facility]: 12990-067-75 4Result Comment: [facility]: 35958-859-30 5Result Comment: [facility] [id number] 6Result Comment: [05/02/2018] [facility] # [id number] 7Result Comment: [05/31/2017] [facility] [id number] 8Result Comment: [03/16/2014] Dr. Duffy 9Result Comment: [facility]: [id number] 10Result Comment: [07/01/2015] diluent [id number] 08/24/17 [employer]ck 11Admin Note: rcvd elsewhere Medications [...] Mouth, Once, Administered after procedure - LOT [id number] EXP 01/2024, # 1 tablet, 0 Refills, [...] 0 Refills, Maintenance, 12/15/22 9:34:00 EDT, Tablet, [facility]/pharmacy #[id number], Partial fill [...] 11/17/22 8:17:00 EDT, Route to Pharmacy Electronically, [facility] 12268, 165, cm, 10/26/22 16:15:00 EDT, Height, 58.7, kg, 10/21/22 21:15:00 EDT, Dry Weight Start Date: 11/17/22 Stop Date: 12/17/22 Status: Ordered losartan 25 mg oral tablet 1 tablet = 25 mg, By Mouth, Daily, # 30 tablet, 0 Refills, Maintenance, 12/15/22 9:35:00 EDT, Tablet, [facility]/pharmacy #[id number], Partial fill [...] 1/2 pack daily; entered on: 05/31/17 Sex Cardiology * Event Display: Cardiology Office Note, Non-BH Authored Date: * Event Display: Holter Report Authored Date: * Event Display: Holter Report Authored Date: * Event Display: Holter Report Authored Date: Laboratory * Event Display: Laboratory Result Scanned Authored [...] Primary Care Member Role: PCP Address: Address: [address] [place] [address] Name: Paris De Jesus LPN Position: S RN Member Role: Primary Care Nurse Name: Keya Rollins RN Position: S RN Member Role: Primary Care Nurse Name: Lisa Leone RN Position: S RN Member Role: Primary Care Nurse Care Team Related Persons Name: KEERTHIAMY MARTIN Address: [address] [place] [address] Name: ILDA DOWLING Address: [address] [place] [address]
--- OUTSIDE RECORDS SUMMARY | 2023-02-05 11:22 | XMS_ITS | Continuity of Care Document ---
Author Name Unknown Organization [facility] Address [address] [place] [address]- Care Team Providers Care Cashier Checker Name Role Phone Mary SHAY, Bridgette Archibald Primary Care Physic payal Encounter [facility] Date(s): 04/19/20 - 04/26/20 [facility] [address] [place] [address]- [place] Encounter Diagnosis Chronic cough(Discharge Diagnosis) - 04/19/20 Leg pain, right(Discharge Diagnosis) - 04/19/20 Tear of left rotator cuff(Discharge Diagnosis) - 04/19/20 Attending Physician: Mary SHAY, Bridgette Archibald Allergies, [...] Comment: [facility]: [id number] 2Result Comment: [facility] [id number] 3Result Comment: [05/02/2018] [facility] # [id number] 4Result Comment: [05/31/2017] [facility] [id number] 5Result Comment: [03/16/2014] Dr. Duffy 6Result Comment: [07/01/2015] diluent [id number] 08/24/17 Merck 7Admin Note: rcvd elsewhere Medications albuterol 0.083% inhalation solution 3 mL = 2.5 mg, Inhalation, Every 6 hours, DX: J45.909, # 60 each, 0 Refills, Maintenance, 08/25/19 10:27:00 EST, Solution, [facility]/pharmacy #[id number], 160.5, cm, 07/19/19 13:59:00 EST, Height, 55.6, kg, 03/15/19 15:53:00 EDT, Dry Weight Start Date: 08/25/19 Status: Ordered amiodarone 200 mg oral tablet 200 mg, 1, tablet, By Mouth, Daily, Prescribed by Dr. Car (Cardiology), # 90 tablet, Refills 0,Tot. Refills 0, Maintenance, 10/20/19 10:07:00 EDT, Route to Pharmacy Electronically, [facility]/pharmacy #[id number], 160.5, cm, 07/19/19 13:59:00 EST, Height, 55.... Start Date: 10/20/19 Status: Ordered Azithromycin 5 Day Dose Pack 250 mg oral tablet 1 pack/packet, By Mouth, Once, # 6 tablet, 0 Refills, Soft Stop, 08/23/19 16:55:00 EST, Tablet, [facility]/pharmacy #[id number], 160.5, cm, 07/19/19 13:59:00 EST, Height, 55.6, kg, 03/15/19 15:53:00 EDT, Dry Weight Start Date: 08/23/19 Status: Ordered barium sulfate 2% oral suspension See Instructions, dispense two 450 mg bottles. Drink one 450 ml bottle at 8am, and one 450 mL bottle 90 minutes prior to procedure., # 900 mL, 0 Refills, Maintenance, 06/05/19 15:49:07 EST, [facility]/pharmacy #[id number], dispense two 450 mg bottles. ; Drink on... Start Date: 06/05/19 Status: Ordered Breo Ellipta 100 mcg-25 mcg/inh inhalation powder 1 puffs, Inhalation, Daily, # 30 each, 5 Refills, Maintenance, 10/27/19 17:22:00 EDT, Powder, [facility]/pharmacy #[id number], Substitute for Advair RX, 1 [...] 03/27/20 10:19:00 EDT, Route to Pharmacy Electronically, [facility]/pharmacy #[id number], 160.5, cm, 12/12/19 13:19:00 EDT, [...] 04/19/20 12:01:00 EDT, Route to Pharmacy Electronically, [facility]/pharmacy #[id number], 160.5, cm, 04/19/20 11:16:00 EDT, Height, 55.6, kg, 03/15/19 15:53:00 EDT, Dry Weight Start Date: 04/19/20 Status: Ordered losartan 25 mg oral tablet 25 mg, 1, tablet, By Mouth, Daily, # 90 tablet, Refills 3, Tot. Refills 3, Maintenance, 12/20/19 15:58:00 EDT, Route to Pharmacy Electronically, [facility] ([place]), 160.5, cm, 12/12/19 13:19:00 EDT, Height, 55.6, [...] 90 capsule, 1 Refills, Maintenance, 03/01/20 11:31:00 EDT,[facility]/pharmacy #[id number], 160.5, cm, 12/12/19 13:19:00 EDT, [...] 1 Refills, Maintenance, 11/27/19 12:58:00 EDT, Tablet, [facility] ([place]), 160.5, cm, 07/19/19 13:59:00 EST, Height, 55.6, kg, 03/15/19 15:53:00 EDT, Dry We... Start Date: 11/27/19 Status: Ordered Xarelto 20 mg oral tablet See Instructions, 1 tablet by oral route every day with the evening meal, # 30 tablet, 0 Refills, Maintenance, 01/01/20 17:23:00 EDT, Tablet, [facility]/pharmacy #[id number], 160.5, cm, 12/12/19 13:19:00 EDT, Height, [...] N0, ER positive, OR negative, 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 Diagnosis Diagnosis Type Effective Dates Health Status Cl inical Service Informant Chronic cough Discharge Diagnosis 04/19/20 Leg pain, right Discharge Diagnosis 04/19/20 Tear of left rotator cuff Discharge Diagnosis 04/19/20 Vital Signs Most recent to oldest [Reference Range]: 1 Height 160.5 cm (04/19/20 11:16 AM) Weight 57.5 kg (04/19/20 11:16 AM) Pulse Rate [55-90 bpm] 100 bpm *H* (04/19/20 11:16 AM) Body Mass Index [18.5-24.99] 22.32 (04/19/20 11:16 AM) Blood Pressure [90-138/55-84 mm Hg] 108/ 71mm Hg (04/19/20 11:16 AM) Blood pressure sites Arm, right (04/19/20 11:16 AM) Social History Social History Type Response Smoking Status Former smoker; Tobac co user in household: No; Other: Quit 30 years ago; Started at 16 YO 1/2 pack daily; entered on: 05/31/17 Sex
--- OUTSIDE RECORDS SUMMARY | 2023-02-05 11:22 | XMS_ITS | Continuity of Care Document ---
Author Name Unknown Organization [facility] Address [address] [place] [address]- Care Team Providers Care Fibre Optic Cable Splicer Name Role Phone Mary SHAY, Bridgette Archibald Primary Care Physic payal [facility] Date(s): 01/06/21 - 02/05/21 [facility] [address] [place] [address]- Allergies, Adverse Reactions, Alerts Substance Reaction Severity [...] Vaccine (oldterm) 06/21/01 Given 1Result Comment: [facility]: [id number] 2Result Comment: [facility] [id number] 3Result Comment: [05/02/2018] [facility] # [id number] 4Result Comment: [05/31/2017] [facility] [id number] 5Result Comment: [03/16/2014] Dr. Duffy 6Result Comment: [07/01/2015] diluent [id number] 08/24/17 Merck 7Admin Note: rcvd elsewhere Medications Advair Diskus 250 mcg-50 mcg inhalation powder 1, puffs, Inhalation, 2 times a day, # 180 each, Refills 1, Tot. Refills 1, Maintenance, 10/03/20 12:43:00 EDT, Route to Pharmacy Electronically, [id number], [facility]/pharmacy #[id number], 160.5, cm, 04/19/20 11:16:00 EDT, Height, 55.6,... Start Date: 10/03/20 Stop Date: 04/01/21 Status: Ordered albuterol 0.083% inhalation solution 3 mL = 2.5 mg, Inhalation, Every 6 hours, DX: J45.909, # 60 each, 0 Refills, Maintenance, 08/25/19 10:27:00 EST, Solution, [facility]/pharmacy #[id number], 160.5, cm, 07/19/19 13:59:00 EST, Height, 55.6, kg, 03/15/19 15:53:00 EDT, Dry Weight Start Date: 08/25/19 Status: Ordered Bactrim DS 800 mg-160 mg oral tablet 1 tablet, By Mouth, Once, [facility]-, # 1 tablet, 0 Refills, Soft Stop, 12/24/20 12:01:00 EDT, Partial fill upon patient request if the prescription is for a schedule II opioid drug. Start Date: 12/24/20 Status: Ordered cetirizine 10 mg oral tablet 1 tablet = 10 mg, By Mouth, Daily, # 30 tablet, 0 Refills, Maintenance, 12/27/20 14:45:00 EDT, Tablet, [facility]/pharmacy #[id number], Partial fill upon patient request if the prescription is for a schedule II opioid drug., 160, cm, 12/27/20 13:23:00 EDT, Height,... Start Date: 12/27/20 Status: Ordered citalopram 20 mg oral tablet 20 mg, 1, tablet, By Mouth, Daily, # 90 tablet, Refills 1, Tot. Refills 1, Maintenance, 09/30/20 11:37:00 EDT, Route to Pharmacy Electronically, [facility]/pharmacy #[id number], 160.5, cm, 04/19/20 11:16:00 EDT, [...] 12/11/20 15:53:00 EDT, Route to Pharmacy Electronically, [facility]/pharmacy #[id number], Partial fill upon patient request if the prescription is for a schedule II... Start Date: 12/11/20 Status: Ordered Flonase 50 mcg/inh nasal spray 1 sprays, Nares, Both, 2 times a day, # 1 each, 6 Refills, Maintenance, 01/20/21 14:20:00 EDT, [place], [facility]/pharmacy #[id number], Partial fill upon patient request if the prescription is for a schedule II opioid drug., 1 sprays Nares, Both 2 times a day, 160,... Start Date: 01/20/21 Status: Ordered loratadine 10 mg oral tablet 10 mg, 1, tablet, By Mouth, Daily, # 90 tablet, Refills 0, Tot. Refills 0, Maintenance, 11/28/20 9:28:00 EDT, [id number] 160.5, cm, 11/26/20 11:39:00 EDT, Height, 55.6, kg, 03/15/19 15:53:00 EDT, Dry Weight Start Date: 11/28/20 Status: Ordered losartan 25 mg oral tablet 25 mg, 1, tablet, By Mouth, Daily, # 90 tablet, Refills 0, Tot. Refills 0, Maintenance, 11/29/20 14:27:00 EDT, [id number] App[facility]ment, 160.5, cm, 11/26/20 11:39:00 [...] infiltrating ductal carcinoma, T2 N0, ER positive, [place]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
--- OUTSIDE RECORDS SUMMARY | 2023-02-05 11:22 | XMS_ITS | Continuity of Care Document ---
Author Name Unknown Organization [facility] Address [address] [place] [address]- Care Team Providers Care Cambering Machine Operator Name Role Phone Mary SHAY, Bridgette Archibald Primary Care Physic payal [facility] Date[facility]s): 01/15[facility]20 - 02/14/20 [facility] [address] [place] [address]- [facility] Allergies, Adverse Reactions, Alerts Substance Reaction Severity [...] Toxoid Vaccine (oldterm) 06/21/01 Given 1Result Comment: [facility] [id number] 2Result Comment: [05/02/2018] [facility] # [id number] 3Result Comment: [05/31/2017] [facility] [id number] 4Result Comment: [03/16/2014] Dr. Duffy 5Result Comment: [07/01/2015] diluent [id number] 08/24/17 Merck 6Admin Note: rcvd elsewhere Medications albuterol 0.083% inhalation solution 3 mL = 2.5 mg, Inhalation, Every 6 hours, DX: J45.909, # 60 each, 0 Refills, Maintenance, 08/25/19 10:27:00 EST, Solution, [facility]/pharmacy #[id number], 160.5, cm, 07/19/19 13:59:00 EST, Height, 55.6, kg, 03/15/19 15:53:00 EDT, Dry Weight Start Date: 08/25/19 Status: Ordered amiodarone 200 mg oral tablet 200 mg, 1, tablet, By Mouth, Daily, Prescribed by Dr. Car (Cardiology), # 90 tablet, Refills 0,Tot. Refills 0, Maintenance, 10/20/19 10:07:00 EDT, [id number] 160.5, cm, 07/19/19 13:59:00 EST, Height, 55.... Start Date: 10/20/19 Status: Ordered Azithromycin 5 Day Dose Pack 250 mg oral tablet 1 pack/packet, By Mouth, Once, # 6 tablet, 0 Refills, Soft Stop, 08/23/19 16:55:00 EST, Tablet, [facility]/pharmacy #[id number], 160.5, cm, 07/19/19 13:59:00 EST, [...] 5 Refills, Maintenance, 10/27/19 17:22:00 EDT, Powder, [facility]/pharmacy #[id number], Substitute for Advair RX, 1 [...] 09/14/19 10:00:00 EDT, Route to Pharmacy Electronically, [facility] ([place]), 160.5, cm, 07/19/19 13:59:00 EST, [...] 12/20/19 15:58:00 EDT, Route to Pharmacy Electronically, [facility] ([place]), 160.5, cm, 12/12/19 13:19:00 EDT, [...] Refills, Maintenance, 07/19/19 14:49:00 EST,[facility] ([place]), 160.5, cm, 07/19/19 13:59:00 EST, Height, 55.6, kg, 03/15/19 15:53:00 EDT, Dry Weight Start Date: 07/19/19 Status: Ordered Vitamin D3 = 1,000 International_Units, By Mouth, 0 Refills, Maintenance, 11/22/15 14:34:08 Start Date: 11/22/15 Status: Ordered Voltaren 1% topical gel 1 application, Topically, 4 times a day, # 100 Gm, 0 Refills, Maintenance, 07/13/19 17:07:00 EST, Gel, [facility]/pharmacy #[id number], 1 application Topically 4 times a day, 160.5, cm, 07/13/19 13:23:00 EST, Height, 55.6, kg, 03/15/19 15:53:00 EDT, Dry Weight Start Date: 07/13/19 Status: Ordered Xarelto 20 mg oral tablet See Instructions, 1 tablet by oral route every day with the evening meal, # 90 tablet, 1 Refills, Maintenance, 11/27/19 12:58:00 EDT, Tablet, [facility] ([place]), 160.5, cm, 07/19/19 13:59:00 EST, Height, 55.6, kg, 03/15/19 15:53:00 EDT, Dry We... Start Date: 11/27/19 Status: Ordered Xarelto 20 mg oral tablet See Instructions, 1 tablet by oral route every day with the evening meal, # 30 tablet, 0 Refills, Maintenance, 01/01/20 17:23:00 EDT, Tablet, [facility]/pharmacy #[id number], 160.5, cm, 12/12/19 13:19:00 EDT, Height, [...]
--- OUTSIDE RECORDS SUMMARY | 2023-02-05 11:22 | XMS_ITS | Continuity of Care Document ---
Author Name Unknown Organization [facility] Address [address] [place] [address]- Care Team Providers Care Post Acute Care Nurse Name Role Phone Mary SHAY, Bridgette Archibald Primary Care Physic payal [facility] Date[facility]s): 12/09/22 - 01/08/23 [facility] [address] [place] [address]- Allergies, Adverse Reactions, Alerts Substance Reaction Severity Status Augmentin nausea Active Immunizations Given and Recorded Vaccine Date Status Refusal Reason [id number] 12y+ bivalent booster vax 1 04/09/22 Given [...] (oldterm) 06/21/01 Given 1Result Comment: [facility]: [id number] 2Result Comment: [facility]: 03682-926-00 3Result Comment: [facility]: [id number] 4Result Comment: [facility]: [id number] 5Result Comment: [facility] [id number] 6Result Comment: [05/02/2018] [facility] # [id number] 7Result Comment: [05/31/2017] [facility] [id number] 8Result Comment: [03/16/2014] Dr. Duffy 9Result Comment: [facility]: [id number] 10Result Comment: [07/01/2015] diluent [id number] 08/24/17 Merck 11Admin Note: rcvd elsewhere Medications [...] Gm, 1 Refills, Maintenance, 10/16/22 10:07:00 EDT, [facility]/pharmacy #[id number], Partial fill upon [...] Once, Administered after procedure - [facility] LOT [id number] EXP 01/2024, # 1 tablet, 0 Refills, [...] 0 Refills, Maintenance, 12/15/22 9:34:00 EDT, Tablet, [facility]/pharmacy #[id number], Partial fill upon [...] 11/17/22 8:17:00 EDT, Route to Pharmacy Electronically, [facility] [id number], 165, cm, 10/26/22 16:15:00 EDT, Height, 58.7, kg, 10/21/22 21:15:00 EDT, Dry Weight Start Date: 11/17/22 Stop Date: 12/17/22 Status: Ordered losartan 25 mg oral tablet 1 tablet = 25 mg, By Mouth, Daily, # 30 tablet, 0 Refills, Maintenance, 12/15/22 9:35:00 EDT, Tablet, [facility]/pharmacy #[id number], Partial fill upon [...] Role: Primary Care Nurse Name: Mary SHAY, Bridgetet Archibald Position: [facility] Physician - Primary Care Member Role: PCP Address: Address: [address] [place] [id number] Name: Paris De Jesus LPN Position: S RN Member Role: Primary Care Nurse Name: Lisa Leone RN Position: [facility] RN Member Role: Primary Care Nurse Care Team Related Persons Name: KEERTHIAMY MARTIN Address: [address] [place] [address] Name: ILDA DOWLING Address: [address] [place] [address]
--- OUTSIDE RECORDS SUMMARY | 2023-02-05 11:22 | XMS_ITS | Continuity of Care Document ---
Author Name Unknown Organization [facility] Address [address] [place] [address]- Care Team Providers Care Manager Social Responsibility Name Role Phone Mary SHAY, Bridgette Archibald Primary Care Physic payal [facility]): 03/26[facility]21 - 04/25/21 [facility] [address] [place] [address]- [place] Allergies, Adverse Reactions, Alerts Substance Reaction [...] [facility]: [id number] 2Result Comment: [facility]: 78135-310-97 3Result Comment: [facility]: [id number] 4Result Comment: [facility] 54122-123-00 5Result Comment: [05/02/2018] [facility] # [id number] 6Result Comment: [05/31/2017] [facility] [phone] 7Result Comment: [03/16/2014] Dr. Duffy 8Result Comment: [07/01/2015] diluent [id number] 08/24/17 Merck 9Admin Note: rcvd elsewhere Medications Advair Diskus 250 mcg-50 mcg inhalation powder 1, puffs, Inhalation, 2 times a day, # 180 each, Refills 1, Tot. Refills 1, Maintenance, 10/03/20 12:43:00 EDT, Route to Pharmacy Electronically, [id number], [facility]/pharmacy #[id number], 160.5, cm, 04/19/20 11:16:00 EDT, Height, 55.6,... Start Date: 10/03/20 Stop Date: 04/01/21 Status: Ordered albuterol 0.083% inhalation solution 3 mL = 2.5 mg, Inhalation, Every 6 hours, DX: J45.909, # 60 each, 0 Refills, Maintenance, 08/25/19 10:27:00 EST, Solution, [facility]/pharmacy #[id number], 160.5, cm, 07/19/19 13:59:00 EST, Height, 55.6, kg, 03/15/19 15:53:00 EDT, Dry Weight Start Date: 08/25/19 Status: Ordered Azithromycin 5 Day Dose Pack 250 mg oral tablet 1 pack/packet, By Mouth, Once, # 6 tablet, 0 Refills, Soft Stop, 04/10/21 16:39:00 EDT, Tablet, [facility]/pharmacy #[id number], Partial fill upon patient request if [...] 1 Refills, Maintenance, 04/22/21 15:35:00 EDT, Tablet, [facility]/pharmacy #[id number], Partial fill upon patient request if the prescription is for a schedule II opioid drug., 160, cm, 01/20/21 14:22:00 EDT, Height,... Start Date: 04/22/21 Status: Ordered citalopram 20 mg oral tablet 20 mg, 1, tablet, By Mouth, Daily, # 90 tablet, Refills 1, Tot. Refills 1, Maintenance, 03/26/21 14:13:00 EDT, Route to Pharmacy Electronically, [facility]/pharmacy #[id number], 160, cm, 01/20/21 14:22:00 EDT, Height, [...] 12/11/20 15:53:00 EDT, [id number] Partial fill upon patient request if the prescription is for a schedule II... Start Date: 12/11/20 Status: Ordered Flonase 50 mcg/inh nasal spray See Instructions, 2 sprays Nares twice daily x 1 week, then once daily x 1-2 weeks until symptoms improve, # 16 Gm, 0 Refills, Maintenance, 04/22/21 15:36:00 EDT, [place], [facility]/pharmacy #[id number], Partial fill upon patient request if [...] 03/26/21 13:41:00 EDT, [facility]ically, [id number], 160, cm, [...] 90 capsule, 0 Refills, Maintenance, 04/09/21 14:31:00 EDT,[facility]/pharmacy #[id number], 160, cm, 01/20/21 14:22:00 EDT, Height, [...]
--- OUTSIDE RECORDS SUMMARY | 2023-02-05 11:22 | XMS_ITS | Continuity of Care Document ---
Author Name Unknown Organization [facility] Address [address] [place] [address]- Care Team Providers Care Nail Kegger Name Role Phone Mary SHAY, Bridgette Archibald Primary Care Physic payal [facility] Date[facility]s): 01/17[facility]21 - 02/16/21 [facility] [address] [place] [address]- Attending Physician: Rubens Pinto Admitting Physician: Rubens [...] 06/21/01 Given 1Result Comment: [facility]: 66695-194-16 2Result Comment: [facility] 32641-679-08 3Result Comment: [05/02/2018] [facility] # [id number] 4Result Comment: [05/31/2017] [facility] [id number] 5Result Comment: [03/16/2014] Dr. Duffy 6Result Comment: [07/01/2015] diluent [id number] 08/24/17 [employer]ck 7Admin Note: rcvd elsewhere Medications Advair Diskus 250 mcg-50 mcg inhalation powder 1, puffs, Inhalation, 2 times a day, # 180 each, Refills 1, Tot. Refills 1, Maintenance, 10/03/20 12:43:00 EDT, Route to Pharmacy Electronically, [id number], [facility]/pharmacy #[id number], 160.5, cm, 04/19/20 11:16:00 EDT, Height, 55.6,... Start Date: 10/03/20 Stop Date: 04/01/21 Status: Ordered albuterol 0.083% inhalation solution 3 mL = 2.5 mg, Inhalation, Every 6 hours, DX: J45.909, # 60 each, 0 Refills, Maintenance, 08/25/19 10:27:00 EST, Solution, [facility]/pharmacy #[id number], 160.5, cm, 07/19/19 [...] 0 Refills, Maintenance, 12/27/20 14:45:00 EDT, Tablet, [facility]/pharmacy #[id number], Partial fill upon patient request if the prescription is for a schedule II opioid drug., 160, cm, 12/27/20 13:23:00 EDT, Height,... Start Date: 12/27/20 Status: Ordered citalopram 20 mg oral tablet 20 mg, 1, tablet, By Mouth, Daily, # 90 tablet, Refills 1, Tot. Refills 1, Maintenance, 09/30/20 11:37:00 EDT, Route to Pharmacy Electronically, [facility]/pharmacy #[id number], 160.5, cm, 04/19/20 [...] 12/11/20 15:53:00 EDT, Route to Pharmacy Electronically, [facility]/pharmacy #[id number], Partial fill upon patient request if the prescription is for a schedule II... Start Date: 12/11/20 Status: Ordered Flonase 50 mcg/inh nasal spray 1 sprays, Nares, Both, 2 times a day, # 1 each, 6 Refills, Maintenance, 01/20/21 14:20:00 EDT, [place], [facility]/pharmacy #7111, Partial fill upon [...]
--- OUTSIDE RECORDS SUMMARY | 2023-02-05 11:22 | XMS_ITS | Continuity of Care Document ---
Author Name Unknown Organization [facility] Address [address] [place] [address]- Care Team Providers Care Tram Inspector Name Role Phone Mary SHAY, Bridgette Archibald Primary Care Physic payal [place] [facility] Date[place]s): 04/24/21 - 05/01/21 [facility] [address] [place] [address]- [place] Attending Physician: Not on Staff, Attending [...] 1Result Comment: [facility]: [id number] 2Result Comment: [facility]: 73708-204-25 3Result Comment: [facility]: [id number] 4Result Comment: [facility] [id number] 5Result Comment: [05/02/2018] [facility] # [id number] 6Result Comment: [05/31/2017] [facility] [id number] 7Result Comment: [03/16/2014] Dr. Duffy 8Result Comment: [07/01/2015] diluent [id number] 08/24/17 [employer]ck 9Admin Note: rcvd elsewhere Medications Advair Diskus 250 mcg-50 mcg inhalation powder 1, puffs, Inhalation, 2 times a day, # 180 each, Refills 1, Tot. Refills 1, Maintenance, 10/03/20 12:43:00 EDT, Route to Pharmacy Electronically, [id number], [facility]/pharmacy #[id number], 160.5, cm, [...] Refills, Soft Stop, 04/10/21 16:39:00 EDT, Tablet, [facility]/pharmacy #[id number], Partial fill [...] 1 Refills, Maintenance, 04/22/21 15:35:00 EDT, Tablet, [facility]/pharmacy #[id number], Partial fill upon patient request if the prescription is for a schedule II opioid drug., 160, cm, 01/20/21 14:22:00 EDT, Height,... Start Date: 04/22/21 Status: Ordered citalopram 20 mg oral tablet 20 mg, 1, tablet, By Mouth, Daily, # 90 tablet, Refills 1, Tot. Refills 1, Maintenance, 03/26/21 14:13:00 EDT, Route to Pharmacy Electronically, [facility]/pharmacy #[id number], 160, cm, 01/20/21 [...] Gm, 0 Refills, Maintenance, 04/22/21 15:36:00 EDT, [place], [facility]/pharmacy #[id number], Partial fill [...] 03/26/21 13:41:00 EDT, Route to Pharmacy Electronically, [facility]/pharmacy #[id number], Appointment, 160, cm, 01/20/21 14:22:00 EDT, [...] T2 N0, ER positive, [place]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 2013(Confirmed) 10/02/13 Active Osteoporosis(Confirmed) [...]
--- OUTSIDE RECORDS SUMMARY | 2023-02-05 11:22 | XMS_ITS | Continuity of Care Document ---
Author Name Unknown Organization [facility] Address [address] [place] [address] [address] [place] [address]- Care Team Providers Care Milling Operator Name Role Phone Mary SHAY, Bridgette Archibald Primary Care Physic payal Encounter [facility] Date(s): 09/29/22 - 10/29/[address] [place], [place] [address] Attending Physician: AdmRubens herrera Admitting Physician: AdmtrRubens Referring Physician: Admtr, Ar8 Allergies, Adverse Reactions, Alerts Substance Reaction Severity Status Augmentin nausea Active Immunizations Given and Recorded Vaccine Date Status Refusal Reason [id number] 12y+ bivalent booster vax 1 04/09/22 Given [...] (oldterm) 06/21/01 Given 1Result Comment: [facility]: [id number] 2Result Comment: [facility]: [id number] 3Result Comment: [facility]: 33976-150-99 4Result Comment: [facility]: 88009-391-60 5Result Comment: [facility] 58031-912-38 6Result Comment: [05/02/2018] [facility] # [id number] 7Result Comment: [05/31/2017] [facility] [phone] 8Result Comment: [03/16/2014] Dr. Duffy 9Result Comment: [facility]: [id number] 10Result Comment: [07/01/2015] diluent [id number] 08/24/17 Merck 11Admin Note: rcvd elsewhere Medications [...] Nurse Name: Mary SHAY, Bridgette Archibald Position: [facility] Primary Care Physician Member Role: PCP Address: Address: [address] [place] [address] Name: Paris De Jesus LPN Position: S RN Member Role: Primary Care Nurse Name: Keya Rollins RN Position: S RN Member Role: Primary Care Nurse Name: Lisa Leone RN Position: S RN Member Role: Primary Care Nurse Care Team Related Persons Name: AMY PENDLETON Address: [address] [place] [address] Name: ILDA DOWLING Address: [address] [place] [address]
--- OUTSIDE RECORDS SUMMARY | 2023-02-05 11:22 | XMS_ITS | Continuity of Care Document ---
Author Name Unknown Organization [facility] Address [address] [place] [address]- Care Team Providers Care Contact Lens Polisher Name Role Phone Mary SHAY, Bridgette Archibald Primary Care Physic payal Encounter [facility] Date(s): 01/17/21 - 01/24/21 [facility] [address] [place] [address]- [place] Attending Physician: Bridgette Hernandez MD Allergies, Adverse [...] Vaccine (oldterm) 06/21/01 Given 1Result Comment: [facility]: [id number] 2Result Comment: [facility] [phone] 3Result Comment: [05/02/2018] [facility] # [id number] 4Result Comment: [05/31/2017] [facility] 17538-913-98 5Result Comment: [03/16/2014] Dr. Duffy 6Result Comment: [07/01/2015] diluent [id number] 08/24/17 Merck 7Admin Note: rcvd elsewhere Medications Advair Diskus 250 mcg-50 mcg inhalation powder 1, puffs, Inhalation, 2 times a day, # 180 each, Refills 1, Tot. Refills 1, Maintenance, 10/03/20 12:43:00 EDT, Route to Pharmacy Electronically, [id number], [facility]/pharmacy #[id number], 160.5, cm, 04/19/20 [...] each, 6 Refills, Maintenance, 01/20/21 14:20:00 EDT, [place], [facility]/pharmacy #[id number], Partial fill upon patient request if the prescription is for a schedule II opioid drug., 1 sprays Nares, Both 2 times a day, 160,... Start Date: 01/20/21 Status: Ordered loratadine 10 mg oral tablet 10 mg, 1, tablet, By Mouth, Daily, # 90 tablet, Refills 0, Tot. Refills 0, Maintenance, 11/28/20 9:28:00 EDT, [id number] 160.5, cm, 11/26/20 11:39:00 EDT, Height, 55.6, kg, 03/15/19 15:53:00 EDT, Dry Weight Start Date: 11/28/20 Status: Ordered losartan 25 mg oral tablet 25 mg, 1, tablet, By Mouth, Daily, # 90 tablet, Refills 0, Tot. Refills 0, Maintenance, 11/29/20 14:27:00 EDT, [id number] App[facility]ment, 160.5, cm, 11/26/20 11:39:00 [...] N0, ER positive, LA negative, 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 Vital Signs Most recent to oldest [Reference Range]: 1 Height 160.0 cm (01/17/21 11:00 AM) Weight 60.8 kg (01/17/21 11:00 AM) Oxygen Saturation [94-100 %] 97 % (01/17/21 11:00 AM) Pulse Rate [55-90 bpm] 146 bpm *H* (01/17/21 11:00 AM) Body Mass Index [18.5-24.99] 23.75 (01/17/21 11:00 AM) Blood Pressure [90-138/55-84 mm Hg] 116/ 72mm Hg (01/17/21 11:00 AM) Mode of Delivery (Oxygen) Room air (01/17/21 11:00 AM) Blood pressure sites Arm, left (01/17/21 11:00 AM) Weight Obtained Via Standing scale (01/17/21 11:00 AM) Social History Social History Type Response Smoking Status Former smoker; Tobac co user in household: No; Other: Quit 30 years ago; Started at 16 YO 1/2 pack daily; entered on: 05/31/17 Sex
--- OUTSIDE RECORDS SUMMARY | 2023-02-05 11:22 | XMS_ITS | Continuity of Care Document ---
Author Name Unknown Organization [facility] Address [address] [place] [address]- Care Team Providers Care Punchboard Inserter Name Role Phone Mary SHAY, Bridgette Archibald Primary Care Physic payal Encounter [facility] Date(s): 08/31/22 - 09/07/22 [facility] [address] [place] [address]- Encounter Diagnosis Hematuria(Discharge Diagnosis) - 08/31/22 Atrial fibrillation and flutter(Discharge Diagnosis) - 08/31/22 Anemia(Discharge Diagnosis) - 08/31/22 Osteoarthritis of left knee(Discharge Diagnosis) - 08/31/22 Attending Physician: Mary SHAY, Bridgette Archibald Allergies, Adverse Reactions, Alerts Substance Reaction Severity Status Augmentin nausea Active Immunizations Given and Recorded Vaccine Date Status Refusal Reason [id number] 12y+ bivalent booster vax 1 04/09/22 Given [...] 1Result Comment: [facility]: [address]-8 2Result Comment: [facility]: 83220-929-66 3Result Comment: [facility]: 10101-195-98 4Result Comment: [facility]: 45952-503-21 5Result Comment: [facility] 71779-196-20 6Result Comment: [05/02/2018] [facility] # 72600-746-98 7Result Comment: [05/31/2017] [facility] 92477-827-39 8Result Comment: [03/16/2014] Dr. Dfufy 9Result Comment: [facility]: 75143-931-21 10Result Comment: [07/01/2015] diluent [id number] 08/24/17 Merck 11Admin Note: rcvd elsewhere Medications Advair Diskus 500 mcg-50 mcg inhalation powder 1, inhalation, Inhalation, 2 times a day, rinse mouth and throat after use j45.40, # 1 each, Refills 6, Tot. Refills 6, Maintenance, 01/19/22 12:24:00 EDT, Powder, Route to Pharmacy Electronically, [id number], [facility]/pharmacy #7... Start Date: 01/19/22 Status: Ordered albuterol 0.083% inhalation solution 3 mL = 2.5 mg, Inhalation, Every 6 hours, DX: J45.909, # 60 each, 0 Refills, Maintenance, 08/25/19 10:27:00 EST, Solution, [facility]/pharmacy #[id number], 160.5, cm, 07/19/19 13:59:00 EST, Height, 55.6, kg, 03/15/19 15:53:00 EDT, Dry Weight Start Date: 08/25/19 Status: Ordered cetirizine 10 mg oral tablet 1 tablet = 10 mg, By Mouth, Daily, # 30 tablet, 1 Refills, Maintenance, 04/22/21 15:35:00 EDT, Tablet, [id number] Partial fill upon patient request if the prescription is for a schedule II opioid drug., 160, cm, 01/20/21 14:22:00 EDT, Height,... Start Date: 04/22/21 Status: Ordered citalopram 20 mg oral tablet 20 mg, 1, tablet, By Mouth, Daily, # 90 tablet, Refills 1, Tot. Refills 1, Maintenance, 04/30/22 17:34:00 EST, [id number], 166, cm, 02/13/22 15:01:00 EDT, [...] 0 Refills, Maintenance, 11/19/21 16:31:00 EDT, [facility]/pharmacy #[id number], Partial fill upon patient request [...] EST, Route to Pharmacy Electronically, [facility]/pharmacy #7111, Partial fill upon patient request if the prescription is for a schedule II o... Start Date: 07/31/21 Status: Ordered Flonase 50 mcg/inh nasal spray 2 sprays, Nares, Both, Daily in AM, # 16 Gm, 6 Refills, Maintenance, 05/16/21 10:11:00 EST, [place], [facility]/pharmacy #7111, Partial fill upon patient request if the prescription is for a schedule II opioid drug., 2 sprays Nares, Both Daily in AM, 160, cm,... Start Date: 05/16/21 Status: Ordered gabapentin 100 mg oral capsule 1, capsule, By Mouth, 3 times a day, # 90 capsule, Refills 0, Maintenance, 07/05/22 16:05:00 EST, Route to Pharmacy Electronically, [id number], 166, cm, 05/29/22 11:40:00 EST, Height, 63, kg, 12/12/20 13:26:00 EDT, Dry Weight Start Date: 07/05/22 Stop Date: 08/04/22 Status: Ordered loratadine 10 mg oral tablet 10 mg, 1, tablet, By Mouth, Daily, # 90 tablet, Refills 0, Tot. Refills 0, Maintenance, 11/27/21 9:50:00 EDT, Route to Pharmacy Electronically, [facility]/pharmacy #[id number], 160, cm, 08/19/21 15:40:00 EST, Height, 63, kg, 12/12/20 13:26:00 EDT, Dry Weight Start Date: 11/27/21 Status: Ordered losartan 25 mg oral tablet 25 mg, 1, tablet, By Mouth, Daily, # 90 tablet, Refills 1, Tot. Refills 1, Maintenance, 04/10/22 9:35:00 EDT, Route to Pharmacy Electronically, [facility]/pharmacy #[id number], Appointment, 166, cm, 02/13/22 15:01:00 [...] Refills 11, Route to Pharmacy Electronically, [id number], 160, cm, 08/19/21 15:40:00 EST, Height, 63, [...] 1 Refills, Maintenance, 05/25/22 9:54:00 EST, [facility]/pharmacy #[id number], 166, cm, 02/13/22 15:01:00 EDT, [...] N0, ER positive, LA negative, 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 Diagnosis Diagnosis Type Effective Dates Health Status Clinical Service Informant Hematuria Discharge Diagnosis 08/31/22 Atrial fibrillation and flutter Discharge Diagnosis 08/31/22 Anemia Discharge Diagnosis 08/31/22 Osteoarthritis of left knee Discharge Diagnosis 08/31/22 Vital Signs Most recent to oldest [Reference Range]: 1 Height 166 cm (08/31/22 11:19 AM) Oxygen Saturation [94-100 %] 98 % (08/31/22 11:19 AM) Pulse Rate [55-90 bpm] 58 bpm (08/31/22 11:19 AM) Blood Pressure [90-138/55-84 mm Hg] 116/ 63mm Hg (08/31/22 11:19 AM) Blood pressure sites Arm, right (08/31/22 11:19 AM) Social History Social History Type Response Smoking Status Former smoker; Tobac co user in household: No; Other: Quit 30 years ago; Started at 16 YO 1/2 pack daily; entered on: 05/31/17 Sex Note * Hattie Lopes: PERFORM, SIGN, VERIFY Event Display: Patient Education/Instruction Authored Date: [id number] [facility] Clinical Summary Name HATTIE ECHEVARRIA Age 82 Years 1940 PCP Mary SHAY, Bridgette Archibald PCP Visit Date 08/31/2022 11:00:00 Additional Instructions: Scheduled Appointments?? Future Appointments ?*[facility] ?[address]??[place],??[place],??[address] ?Phone:??--?Fax:??-- ?Appt. Date:??09/10/2022?1:40 PM ?Scheduled Provider:??Tati SHAY , Bridgette Archibald ?*[place] ?Phone:??--?Fax:??-- ?Appt. Date:??09/29/2022?3:00 PM ?Scheduled Provider:??Papa SHAY , Bobo Pablo ?[facility] ?[address]??[place],??[place],??[address] ?Phone:??[phone]?Fax:??-- ?Appt. Date:??12/24/2022?1:00 PM ?Scheduled Provider:??[facility] 3D Mammo Rm 4 Follow-Up Instructions ?? Diagnosis Hematuria, unspecified; Unilateral primary osteoarthritis, left knee; Anemia, unspecified; Unspecified atrial fibrillation Medications: Please continue your medications until treatment [...] Augmentin Medications Given This Visit Future Orders ?US Retroperitoneum Comp? Order Date:08/31/22?- Complete on or after?08/31/22 ?Fecal Occult Blood Immunochemical? Order Date:08/31/22?- Complete on or after?08/31/22 Vital Signs Height 166 cm Weight BMI Blood Pressure 116 mm Hg/63 mm Hg Temperature Pulse Rate 58 bpm Respiratory Rate 02 Sat Mode of Delivery 98 %/ You can now view a summary of your hospital visit from the comfort of your home through a free online portal called [employer]. [employer] is a website that allows you to securely view your medical information including discharge summary, medications and follow-up visits. ??You can alsosend a secure electronic message to your doctor???s office to request appointments, renew medications or just ask a question. You can enroll at [email or web address] or register during your next [...] primary care provider, you may find a [facility] provider by calling [facility] [employer] Link at [phone]. For information about the plan of care [...] Care Physician Member Role: PCP Address: Address: [address] [place] [address]- Care Team Related Persons Name: AMY PENDLETON Address: [address] [place] [address] Name: ILDA DOWLING Address: [address] [place] [address]
--- OUTSIDE RECORDS SUMMARY | 2023-02-05 11:22 | XMS_ITS | Continuity of Care Document ---
Author Name Unknown Organization [facility] Address [address] [place] [address]- Care Team Providers Care Bee Rancher Name Role Phone Mary SHAY, Bridgette Archibald Primary Care Physic payal Encounter [facility] Date(s): 10/03/20 - 11/02/20 [facility] [address] [place] [address]- Attending Physician: Rubens Pinto Admitting Physician: Rubens [...] Given 1Result Comment: [facility]: 69503-446-22 2Result Comment: [facility] 64730-932-73 3Result Comment: [05/02/2018] [facility] # 93396-664-73 4Result Comment: [05/31/2017] [facility] 44838-060-79 5Result Comment: [03/16/2014] Dr. Duffy 6Result Comment: [07/01/2015] diluent [id number] 08/24/17 Merck 7Admin Note: rcvd elsewhere Medications Advair Diskus 250 mcg-50 mcg inhalation powder 1, puffs, Inhalation, 2 times a day, # 180 each, Refills 1, Tot. Refills 1, Maintenance, 10/03/20 12:43:00 EDT, Route to Pharmacy Electronically, [id number], [facility]/pharmacy #[id number], 160.5, cm, 04/19/20 11:16:00 EDT, Height, 55.6,... Start Date: 10/03/20 Stop Date: 04/01/21 Status: Ordered albuterol 0.083% inhalation solution 3 mL = 2.5 mg, Inhalation, Every 6 hours, DX: J45.909, # 60 each, 0 Refills, Maintenance, 08/25/19 10:27:00 EST, Solution, [facility]/pharmacy #[id number], 160.5, cm, 07/19/19 13:59:00 EST, Height, 55.6, kg, 03/15/19 15:53:00 EDT, Dry Weight Start Date: 08/25/19 Status: Ordered barium sulfate 2% oral suspension See Instructions, dispense two 450 mg bottles. Drink one 450 ml bottle at 8am, and one 450 mL bottle 90 minutes prior to procedure., # 900 mL, 0 Refills, Maintenance, 06/05/19 15:49:07 EST, [facility]/pharmacy #[id number], dispense two 450 mg bottles. ; Drink on... Start Date: 06/05/19 Status: Ordered Breo Ellipta 100 mcg-25 mcg/inh inhalation powder 1 puffs, Inhalation, Daily, # 30 each, 5 Refills, Maintenance, 06/04/20 9:31:00 EST, Powder, [facility]/pharmacy #[id number], Substitute for Advair RX, 1 puffs Inhalation Daily, 160.5, cm, 04/19/20 11:16:00 EDT, Height, 55.6, kg, 03/15/19 15:53:00 EDT, Dry Weight Start Date: 06/04/20 Status: Ordered citalopram 20 mg oral tablet 20 mg, 1, tablet, By Mouth, Daily, # 90 tablet, Refills 1, Tot. Refills 1, Maintenance, 09/30/20 11:37:00 EDT, Route to Pharmacy Electronically, [facility]/pharmacy #[id number], 160.5, cm, 04/19/20 [...] 04/19/20 12:01:00 EDT, Route to Pharmacy Electronically, [facility]/pharmacy #[id number], 160.5, cm, 04/19/20 11:16:00 EDT, Height, 55.6, kg, 03/15/19 15:53:00 EDT, Dry Weight Start Date: 04/19/20 Status: Ordered losartan 25 mg oral tablet 25 mg, 1, tablet, By Mouth, Daily, # 90 tablet, Refills 3, Tot. Refills 3, Maintenance, 12/20/19 15:58:00 EDT, Route to Pharmacy Electronically, [facility] 160.5, cm, 12/12/19 13:19:00 EDT, Height, 55.6, [...]
--- OUTSIDE RECORDS SUMMARY | 2023-02-05 11:23 | XMS_ITS | Continuity of Care Document ---
Author Name Unknown Organization [facility] Address [address] [place] [address]- Care Team Providers Care Ocean Transportation Intermediary Name Role Phone Mary SHAY, Bridgette Archibald Primary Care Physic payal Encounter [facility] Date(s): 09/28/22 - 10/28/22 [facility] [address] [place] [address]- Allergies, Adverse Reactions, Alerts Substance Reaction Severity Status Augmentin nausea Active Immunizations Given and Recorded Vaccine Date Status Refusal Reason [id number] 12y+ bivalent booster vax 1 04/09/22 Given [...] (oldterm) 06/21/01 Given 1Result Comment: [facility]: [address]-4 2Result Comment: [facility]: 93012-273-33 3Result Comment: [facility]: 68653-552-69 4Result Comment: [facility]: 47230-717-83 5Result Comment: [facility] 42478-820-17 6Result Comment: [05/02/2018] [facility] # 90691-186-49 7Result Comment: [05/31/2017] [facility] 20722-851-59 8Result Comment: [03/16/2014] Dr. Duffy 9Result Comment: [facility]: 51611-985-39 10Result Comment: [07/01/2015] diluent [id number] 08/24/17 Merck 11Admin Note: rcvd elsewhere Medications [...] 1 Refills, Maintenance, 10/16/22 10:07:00 EDT, [facility]/pharmacy #7111, Partial fill upon patient request if [...] Team Personnel Name: Luis Bojorquez RN Position: [facility] RN Member Role: Primary Care Nurse Name: Mary SHAY, Bridgette Archibald Position: [facility] Primary Care Physician Member Role: PCP Address: Address: [address] [place] [address] Name: Paris De Jesus LPN Position: [facility] RN Member Role: Primary Care Nurse Name: Keya Rollins RN Position: S RN Member Role: Primary Care Nurse Name: Lisa Leone RN Position: [facility] RN Member Role: Primary Care Nurse Care Team Related Persons Name: AMY PENDLETON Address: [address] [place] [address] Name: ILDA DOWLING Address: [address] [place] [address]
--- OUTSIDE RECORDS SUMMARY | 2023-02-05 11:23 | XMS_ITS | Continuity of Care Document ---
Author Name Unknown Organization [facility] Address [address] [place] [address]- Care Team Providers Care Health Concierge Name Role Phone Mary SHAY, Bridgette Archibald Primary Care Physic payal [place] [facility] Date(s): 06/24/22 - 07/24/22 [facility] [address] [place] [address]- Attending Physician: Rubens Pinto Admitting Physician: Rubens Pinto Referring Physician: AdmtrRubens Allergies, Adverse Reactions, Alerts Substance Reaction Severity Status Augmentin nausea Active Immunizations Given and Recorded Vaccine Date Status Refusal Reason [id number] 12y+ bivalent booster vax 1 04/09/22 Given [...] Toxoid Vaccine (oldterm) 06/21/01 Given 1Result Comment: [facility]: [address]-8 2Result Comment: [facility]: 92655-686-10 3Result Comment: [facility]: 04972-014-28 4Result Comment: [facility]: 46662-796-69 5Result Comment: [facility] 13899-113-23 6Result Comment: [05/02/2018] [facility] # 49539-578-50 7Result Comment: [05/31/2017] [facility] [phone] 8Result Comment: [03/16/2014] Dr. Duffy 9Result Comment: [facility]: 22371-260-02 10Result Comment: [07/01/2015] diluent [id number] 08/24/17 Merck 11Admin Note: rcvd elsewhere Medications Advair Diskus 500 mcg-50 mcg inhalation powder 1, inhalation, Inhalation, 2 times a day, rinse mouth and throat after use j45.40, # 1 each, Refills 6, Tot. Refills 6, Maintenance, 01/19/22 12:24:00 EDT, Powder, Route to Pharmacy Electronically, [id number], [facility]/pharmacy #7... Start Date: 01/19/22 [...] Gm, 6 Refills, Maintenance, 05/16/21 10:11:00 EST, [place], [facility]/pharmacy #7111, Partial fill upon patient request if the prescription is for a schedule II opioid drug., 2 sprays Nares, Both Daily in AM, 160, cm,... Start Date: 05/16/21 Status: Ordered gabapentin 100 mg oral capsule 1, capsule, By Mouth, 3 times a day, # 90 capsule, Refills 0, Maintenance, 07/05/22 16:05:00 EST, Route to Pharmacy Electronically, [facility], 166, cm, 05/29/22 11:40:00 EST, Height, 63, [...] to Pharmacy Electronically, [facility] [address], 160, cm, 08/19/21 15:40:00 EST, Height, 63, [...] Note * Event Display: Cardiology Office Note, Non-BH [...] Personnel Name: Mary SHAY, Bridgette Archibald Position: [facility] Primary Care Physician Member Role: PCP Address: Address: [address] [place] [address]- Care Team Related Persons Name: ILDA DOWLING Address: [address] [place] [address]
--- OUTSIDE RECORDS SUMMARY | 2023-02-05 11:23 | XMS_ITS | Continuity of Care Document ---
Author Name Unknown Organization [facility] Address [address] [place] [address]- Care Team Providers Care Unit Clerk Name Role Phone Mary SHAY, Bridgette Archibald Primary Care Physic payal Encounter [facility] Date(s): 09/16/22 - 10/16/22 [facility] [address] [place] [address]- Allergies, Adverse Reactions, Alerts Substance Reaction Severity Status Augmentin nausea Active Immunizations Given and Recorded Vaccine Date Status Refusal Reason [id number] 12y+ bivalent booster vax 1 04/09/22 Given [...] Given 1Result Comment: [facility]: [address]-1 2Result Comment: [facility]: 87430-094-30 3Result Comment: [facility]: 42814-395-36 4Result Comment: [facility]: 07461-520-96 5Result Comment: [facility] [id number] 6Result Comment: [05/02/2018] [facility] # 23457-957-01 7Result Comment: [05/31/2017] [facility] 94929-721-13 8Result Comment: [03/16/2014] Dr. Duffy 9Result Comment: [facility]: 31650-058-80 10Result Comment: [07/01/2015] diluent [id number] 08/24/17 [employer]ck 11Admin Note: rcvd elsewhere Medications Advair Diskus 500 mcg-50 mcg inhalation powder 1, inhalation, Inhalation, 2 times a day, rinse mouth and throat after use, Refills 0, Maintenance,10/14/22 3:02:00 EDT, Powder Start Date: 10/14/22 Status: Ordered Albuterol (Eqv-Ventolin HFA) 90 mcg/inh inhalation aerosol 2 puffs, Inhalation, Every 6 hours, # 18 Gm, 1 Refills, Maintenance, 10/16/22 10:07:00 EDT, [facility]/pharmacy #7111, Partial fill upon patient request [...] 10/23/22 10:07:00 EDT, 10/16/22 10:07:00 EDT, Capsule, [facility]/pharmacy #7111, Partial fill upon patient request ifthe [...] 10/23/22 9:00:00 EDT, 10/16/22 9:00:00 EDT, Tablet, [facility], Partial fill upon patient request if [...] 10/20/22 18:00:00 EDT, 10/15/22 18:00:00 EDT, Tablet, [facility], Partial fill upon patient request if [...] Personnel Name: Mary SHAY, Bridgette Archibald Position: [facility] Primary Care Physician Member Role: PCP Address: Address: [address] [place] [address]- Care Team Related Persons Name: AMY PENDLETON Address: [address] [place] [address] Name: ILDA DOWLING Address: [address] [place] [address]
--- OUTSIDE RECORDS SUMMARY | 2023-02-05 11:23 | XMS_ITS | Patient Health Record ---
Author Name Unknown [facility] Address [address] [place] [address] Care Team Providers Care Grant Officer Name Role Phone Tati SHAY, Bridgette Primary Care Provider Unavaila ble Black, Jennifer Unavailable [phone] ALLERGIES Allergen (clinical drug ingredient) Drug/Non Drug Allergy documented on EMR Reaction Allergy Type Onset Date Status Augmentin nausea Drug Allergy Active REASON FOR REFERRAL No Information MEDICATIONS Medication SIG (Take, Route, Frequency, Duration) Notes Start Date End Date Status Anastrozole Not-Taki ng Amiodarone HCl Not-T aking Spiriva HandiHaler 18 MCG 1 capsule Inha lation Once a day Active vitamin as directed Not-Taki ng Digoxin 240 1 tablet Orally Once a day for 30 day(s) Not-Taking Cardizem 360 MG 1 tablet before meal s Orally Three times a day for 30 day(s) Active Singulair 10 MG 1 tablet in the even ing Orally Once a day for 30 day(s) Active Physical Therapy 3-4x per week for 3- 4 weeks Not-Taking Magnesium Not-Taking Eliquis 5 MG as directed Orally Active Breo Ellipta Not-Ciro ing [employer] as directed 06/08/2019 Not-Taking Advair Diskus 100-50 MCG/DOSE 1 puff Inhalation every 12 hrs Not-Taking IMMUNIZATIONS Vaccine Route Administration Date Status Comme nts COVID-19 Pfizer BioNTech Vaccine Unknown 04/24/2021 Administered First Dose: 07/22/20 Second Dose:08/19/20 SOCIAL HISTORY Tobacco Use: Social History Observation Description Date Details (start date - stop date) Former Smoker NA - NA Sex Assigned At : Social History Observation Description Sex Assigned At Unknown Tobacco Use/Smoking Question Answer Notes Are you a: former smoker Additional Findings: Tobacco Non-User Current no n-smoker Alcohol Screen Question Answer Notes Did you have a drink containing alcohol in the p ast year? Yes Points 0 Interpretation Negative Tobacco use other than smoking: Question Answer Notes Are you an other tobacco user? No PROBLEMS Problem Type ICD Code Onset Dates Problem Status W/U Status Risk SNOMED Code Notes Problem Hallux valgus (acquired), left foot (M20.12) Active confirmed Acquired hallux valgus (17237878) Problem Hallux valgus (acquired), right foot (M20.11) Active confirmed Acquired hallux valgus (93916576) Problem Age-related osteoporosis without current pathological fracture (M81.0) Active confirmed 42697897 Problem Other hammer toe(s) (acquired), right foot (M20.41) Active confirmed Acquired hammer toe of right foot (2892675919741 105) Problem Other hammer toe(s) (acquired), left foot (M20.42) Active confirmed Acquired hammer toe of left foot (8833023459901 103) Problem 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) Active confirmed 410214412 Problem PlantarFlexion of metatarsal of right foot (M21.6X1) Active confirmed Acquired deformity of right foot (4399954408418 9100) Problem 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) Active confirmed Joint contracture of the ankle and/or foot (666639132) VITAL SIGNS Height 5 ft 6 in in 02/19/2022 Weight 133 lbs 02/19/2022 BMI 21.46 kg/m2 02/19/2022 PROCEDURES Procedure Date Ordered Date Performed Result Body Sit e 26593-COASQCY NAIL, 6 OR MORE 02/19/2022 N/A 12797-Pyio Destruction, 1-14 02/19/2022 N/A 74646 - Tenotomy, open flexor 04/30/2022 N/A 38267-FNSVQNA NAIL, 6 OR MORE 05/21/2022 N/A 49683-Hiex Destruction, 1-14 05/21/2022 N/A 87786-Hdjw Destruction, 1-14 07/17/2022 N/A 54099-RCZFGRQ NAIL, 6 OR MORE 09/07/2022 N/A 23405-Evvl Destruction, -14 09/07/2022 N/A Encounters Encounter Location Date Provider Diagnosis [address] [address] 02/19/2022 Jennifer Black Other viral warts B07.8 ; Pain in left toe(s) M79.675 ; Pain in right toe(s) M79.674 and Tinea unguium B35.[address] [facility] [address] 03/12/2022 Jennifer Black [facility] [address] 03/19/2022 [facility] [address] [facility] [address] [place] [address] 03/31/2022 Jennifer Black [facility] [address] 04/02/2022 Jennifer Black [facility] [address] 04/30/2022 Jennifer Black Other hammer toe(s) (acquired), left foot M20.[address] [address] 05/06/2022 Jennifer Black [address] [address] 05/06/2022 Jennifer Black Other hammer toe(s) (acquired), left foot M20.[address] [address] 05/21/2022 Jennifer Black Other viral warts B07.8 ; Pain in left toe(s) M79.675 ; Pain in right toe(s) M79.674 and Tinea unguium B35.[address] [address] 07/17/2022 Jennifer Black Other viral warts B07.8 and Pain in right toe(s) M79.[address] [address] 09/07/2022 Jennifer Black Other viral warts B07.8 ; Pain in left toe(s) M79.675 ; Pain in right toe(s) M79.674 and Tinea unguium B35.1 [facility] [address] [place] [address] 10/20/2022 Jennifer Pagan [facility] [address] [address] 10/20/2022 Jennifer Pagan ASSESSMENTS Encounter Date Diagnosis Assessment Notes Treatment Notes Treatment Clinical Notes 02/19/2022 Pain in left toe(s) (ICD-10 - M79.675) 04/30/2022 Other hammer toe(s) (acquired), left foot (ICD-10 - M20.42) 05/06/2022 Other hammer toe(s) (acquired), left foot (ICD-10 - M20.42) 05/21/2022 Other viral warts (ICD-10 - B07.8) 02/19/2022 Other viral warts (ICD-10 - B07.8) 05/21/2022 Pain in left toe(s) (ICD-10 - M79.675) 07/17/2022 Other viral warts (ICD-10 - B07.8) 07/17/2022 Pain in right toe(s) (ICD-10 - M79.674) 09/07/2022 Other viral warts (ICD-10 - B07.8) 09/07/2022 Pain in left toe(s) (ICD-10 - M79.675) 09/07/2022 Pain in right toe(s) (ICD-10 - M79.674) 02/19/2022 Pain in right toe(s) (ICD-10 - M79.674) 05/21/2022 Pain in right toe(s) (ICD-10 - M79.674) 02/19/2022 Tinea unguium (ICD-10 - B35.1) 05/21/2022 Tinea unguium (ICD-10 - B35.1) 09/07/2022 Tinea unguium (ICD-10 - B35.1) PLAN OF TREATMENT Pending Test Test Name Order Date X ray : Foot, left 3V 01/25/2012 59711-AFVMSWO NAIL, 6 OR MORE 02/23/2012 30554-YWSUHHA NAIL, 6 OR MORE 03/21/2012 87803-VORGYNV NAIL, 6 OR MORE 05/19/2012 21646-SNHVLZV NAIL, 6 OR MORE 06/23/2012 69117-AARWKNU NAIL, 6 OR MORE 05/08/2013 15405-IUKTIDK NAIL, 6 OR MORE 12/07/2016 39039-TNAHMXW NAIL, 6 OR MORE 07/29/2017 14800-BDHHNRG NAIL, 6 OR MORE 02/17/2018 30641-ZTXBEBT NAIL, 6 OR MORE 07/03/2016 28912-VZVYYFD NAIL, 6 OR MORE 10/03/2018 05539-MZLZFIR NAIL, 6 OR MORE 04/12/2019 79250-SQEOMZB NAIL, 6 OR MORE 07/26/2019 18087-EWAOEKC NAIL, 6 OR MORE 10/26/2019 81245-CLIDGDF NAIL, 6 OR MORE 12/18/2019 23763-UNFNEMR NAIL, 6 OR MORE 02/15/2020 90615-IDYTGON NAIL, 6 OR MORE 05/13/2020 06872-PIXFVQT NAIL, 6 OR MORE 06/24/2020 23794-IFDRXUK NAIL, 6 OR MORE 09/30/2020 26552-LQKRWGX NAIL, 6 OR MORE 12/30/2020 32062-SQHDTUJ NAIL, 6 OR MORE 02/19/2022 34696-KANRTNA NAIL, 6 OR MORE 05/21/2022 76988-EUMGJOH NAIL, 6 OR MORE 09/07/2022 06621-JUSUUEB NAIL, 6 OR MORE 04/07/2021 94677-KRIXUGD NAIL, 6 OR MORE 02/10/2013 30253-JUEOFSG NAIL, 6 OR MORE 08/14/2013 84059-ULYUYGF NAIL, 6 OR MORE 09/10/2016 84923-KALYDFT NAIL, 6 OR MORE 02/12/2017 04296-PEIRTGA NAIL, 6 OR MORE 05/11/2017 45826-CVPQUOM NAIL, 6 OR MORE 12/09/2017 49516-GLZSUUZ NAIL, 6 OR MORE 04/27/2018 35108-ITBDSUA NAIL, 6 OR MORE 01/02/2019 12883-FSVVYOG NAIL, 6 OR MORE 07/04/2018 00125-GHZYZXI NAIL, 6 OR MORE 08/20/2021 61794-Xidr Destruction, 07-0401/25/2012 38274-Cqsb Destruction, 07-0401/02/2019 84342-Uznc Destruction, 07-0406/08/2019 81961-Tncc Destruction, 07-0405/19/2021 29152-Cejl Destruction, 07-0408/20/2021 13564-Illk Destruction, 07-0407/04/2018 14820-Qkme Destruction, 07-0404/27/2018 84024-Dyqb Destruction, 07-0412/09/2017 33636-Zaqm Destruction, 07-0405/11/2017 52148-Eebu Destruction, 07-0409/10/2016 18375-Lzio Destruction, 07-0402/12/2017 76388-Gjhd Destruction, 07-0403/13/2016 69650-Rtjx Destruction, 07-0411/06/2013 30460-Rgka Destruction, 07-0402/05/2014 89708-Ifwf Destruction, 07-0409/28/2014 60088-Kbea Destruction, 07-0403/25/2015 27343-Mnnz Destruction, 07-0405/31/2015 39700-Octn Destruction, 07-0408/06/2015 99317-Jbak Destruction, 07-0412/31/2015 65437-Atvk Destruction, 07-0401/09/2016 55139-Qpdj Destruction, 07-0408/14/2013 03491-Qtjn Destruction, 07-0402/10/2013 68766-Prhn Destruction, 07-0404/07/2021 33665-Ukti Destruction, 07-0407/17/2022 51688-Oihs Destruction, 07-0409/07/2022 86888-Ipbd Destruction, 07-0405/21/2022 01854-Wopu Destruction, 07-0410/08/2021 33681-Xwpq Destruction, 07-0401/08/2022 17591-Hdol Destruction, 07-0402/19/2022 49173-Dmgm Destruction, 07-0402/21/2021 33244-Pklm Destruction, 07-0411/14/2020 51681-Fbcv Destruction, 07-0412/30/2020 73766-Ibvj Destruction, 07-0408/12/2020 12197-Geik Destruction, 07-0409/30/2020 40611-Zsar Destruction, 07-0406/24/2020 90832-Zipm Destruction, 07-0403/29/2020 33951-Hdqr Destruction, 07-0405/13/2020 00880-Jisr Destruction, 07-0402/15/2020 17830-Brbu Destruction, 07-0412/18/2019 84987-Fkiq Destruction, 07-0409/11/2019 52089-Noov Destruction, 07-0410/26/2019 56236-Rsld Destruction, 07-0407/26/2019 20367-Ouqn Destruction, 07-0402/15/2019 57746-Omyf Destruction, 07-0404/12/2019 88129-Skcr Destruction, 07-0410/26/2016 35404-Tzlf Destruction, 07-0412/07/2016 36724-Rgmp Destruction, 07-0403/31/2018 35658-Mnad Destruction, 07-0408/22/2018 77367-Eeig Destruction, 07-0410/03/2018 51448-Jsbo Destruction, 07-0409/13/2017 87338-Vbti Destruction, 07-0410/25/2017 00973-Yowr Destruction, 07-0402/17/2018 58721-Stcn Destruction, 07-0401/15/2017 16384-Mugh Destruction, 07-0403/26/2017 53900-Ftnb Destruction, 07-0406/09/2017 23574-Dckp Destruction, 07-0407/29/2017 37843-Mbci Destruction, 07-0405/07/2014 44228-Egvq Destruction, 07-0401/18/2015 41768-Jopz Destruction, 07-0410/17/2015 94445-Fzgh Destruction, 07-0411/28/2015 05145-Xkra Destruction, 07-0405/20/2016 13271-Bfmi Destruction, 07-0407/03/2016 01733-Nnkx Destruction, 07-0406/23/2012 46450-Qlpw Destruction, 07-0405/08/2013 78336-Obrr Destruction, 07-0405/19/2012 83071-Fapa Destruction, 1-14 03/21/2012 91623-Zpxa Destruction, 1-14 02/23/2012 36419-Paruzskd Plate 11/14/2020 63136-Twnqgikw Plate 11/06/2013 27471-Zuhtodca Plate 08/06/2015 01058-Tcgeyktt Plate 05/31/2015 95286-Jaxnosbt Plate Each Additional 49438- Debride <25 sq cm 10/08/2021 E6444-ZTTHVVQF DYSTROPHIC NAILS ANY # V2166-WWNIFKKE DYSTROPHIC NAILS ANY # 80460 - Tenotomy, open flexor 04/30/2022 Insurance Providers Payer Name Payer Address Payer Phone Subscriber Number Group Number Insured Name Patient Relationship to Insured Coverage Start Date Coverage End Date Medicare National Govt Sv[employer] [address] [place] [address] [id number] Ernestina Fang Self - patient is the insured 6 [employer] Blue Shield [address] [place] [address] [id number] Ernestina Fang Self - patient is the insured MEDICAL (GENERAL) HISTORY Medical History History ICD Code osteoporosis mumps measles joint implants/screws chicken pox asthma Arthritis broken bones hypertension Atrial fibrillation Surgical History Surgery Date(Month/Year) bunionectomy hysterectomy wrist surgery left wrist surgery 07/2013 both eyes cataract surgery 2014 endoscopy 10/14/2015 ablation or a fib 08/2015 Hospitalization History Reason Date(Month/Year)
--- OUTSIDE RECORDS SUMMARY | 2023-02-05 11:23 | XMS_ITS | Continuity of Care Document ---
Author Name Unknown Organization [facility] Address [address] [place] [address]- Care Team Providers Care Geospatial Technologist Name Role Phone Mary SHAY, Bridgette Archibald Primary Care Physic payal [facility] [address] [place] [address]- [facility] Attending Physician: Rubens Pinto Admitting Physician: AdmRubens [...] Toxoid Vaccine (oldterm) 06/21/01 Given 1Result Comment: [facility] [phone] 2Result Comment: [05/02/2018] [facility] # [phone] 3Result Comment: [05/31/2017] [facility] [id number] 4Result Comment: [03/16/2014] Dr. Duffy 5Result Comment: [07/01/2015] diluent [id number] 08/24/17 Merck 6Admin Note: rcvd elsewhere Medications amiodarone 200 mg oral tablet 200 mg, 1, tablet, By Mouth, Daily, Prescribed by Dr. Car (Cardiology), # 90 tablet, Refills 0,Tot. Refills 0, Maintenance, 03/24/19 17:32:08 EDT, Route to Pharmacy Electronically, LAPDP_[id number], [facility] Start Date: 03/24/19 Stop Date: 06/24/20 Status: Ordered barium sulfate 2% oral suspension See Instructions, dispense two 450 mg bottles. Drink one 450 ml bottle at 8am, and one 450 mL bottle 90 minutes prior to procedure., # 900 mL, 0 Refills, Maintenance, 06/05/19 15:49:07 EST, [facility]/pharmacy #[id number], dispense two 450 mg bottles. ; Drink on... Start Date: 06/05/19 Status: Ordered Breo Ellipta 100 mcg-25 mcg/inh inhalation powder 1 puffs, Inhalation, Daily, # 30 each, 1 Refills, Maintenance, 07/12/19 15:53:00 EST, [facility], Substitute for Advair [facility], 1 puffs Inhalation Daily, 160.5, cm, 05/25/19 12:48:00 EST, Height, 55.6, kg, 03/15/19 15:53:00 ED... Start Date: 07/12/19 Status: Ordered citalopram 20 mg oral tablet 20 mg, 1, tablet, By Mouth, Daily, # 90 tablet, Refills 1, Tot. Refills 1, Maintenance, 03/08/19 9:37:54 EDT, Route to Pharmacy Electronically, [id number], [facility] Start Date: 03/08/19 Status: [...] 07/13/18 16:42:32 EST, Route to Pharmacy Electronically, [id number], [facility] Start Date: 07/13/18 Stop Date: 07/08/19 [...] 90 capsule, 3 Refills, Maintenance, 07/19/19 14:49:00 EST,[facility] ([place]), 160.5, cm, 07/19/19 13:59:00 EST, Height, 55.6, kg, 03/15/19 15:53:00 EDT, Dry Weight Start Date: 07/19/19 Status: Ordered Vitamin D3 = 1,000 International_Units, By Mouth, 0 Refills, Maintenance, 11/22/15 14:34:08 Start Date: 11/22/15 Status: Ordered Voltaren 1% topical gel 1 application, Topically, 4 times a day, # 100 Gm, 0 Refills, Maintenance, 07/13/19 17:07:00 EST, Gel, [facility]/pharmacy #[id number], 1 application Topically 4 times a [...] N0, ER positive, SC negative, 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 Social History Social History Type Response Smoking Status Former smoker; Tobac co user in household: No; Other: Quit 30 years ago; Started at 16 YO 1/2 pack daily; entered on: 05/31/17 Sex
--- OUTSIDE RECORDS SUMMARY | 2023-02-05 11:23 | XMS_ITS | Continuity of Care Document ---
Author Name Unknown Organization [facility] Address [address] [place] [address]- Care Team Providers Care Csm Consultant Name Role Phone Mary SHAY, Bridgette Archibald Primary Care Physic payal [facility]counter [facility] Date[facility]s): 06/05/21 - 07/05/21 [facility] [address] [place] [address]- Allergies, Adverse Reactions, Alerts Substance Reaction Severity [...] Given 1Result Comment: [facility]: [phone] 2Result Comment: [facility]: [phone] 3Result Comment: [facility]: [phone] 4Result Comment: [facility] [phone] 5Result Comment: [05/02/2018] [facility] # [id number] 6Result Comment: [05/31/2017] [facility] [phone] 7Result Comment: [03/16/2014] Dr. Duffy 8Result Comment: [07/01/2015] diluent [id number] 08/24/17 Merck 9Admin Note: rcvd elsewhere Medications [...] 03/26/21 14:13:00 EDT, Route to Pharmacy Electronically, [facility]/pharmacy #[id number], 160, cm, 01/20/21 14:22:00 [...] 12/11/20 15:53:00 EDT, Route to Pharmacy Electronically, [facility]/pharmacy #[id number], Partial fill upon patient request if the prescription is for a schedule II... Start Date: 12/11/20 Status: Ordered loratadine 10 mg oral tablet 10 mg, 1, tablet, By Mouth, Daily, # 90 tablet, Refills 0, Tot. Refills 0, Maintenance, 11/28/20 9:28:00 EDT, Route to Pharmacy Electronically, [facility]/pharmacy #[id number], 160.5, cm, 11/26/20 11:39:00 EDT, Height, 55.6, kg, 03/15/19 15:53:00 EDT, Dry Weight Start Date: 11/28/20 Status: Ordered losartan 25 mg oral tablet 25 mg, 1, tablet, By Mouth, Daily, # 90 tablet, Refills 1, Tot. Refills 1, Maintenance, 03/26/21 13:41:00 EDT, Route to Pharmacy Electronically, [facility]/pharmacy #[id number], Appointment, 160, cm, 01/20/21 14:22:00 EDT, [...] 90 capsule, 0 Refills, Maintenance, 04/09/21 14:31:00 EDT,[facility]/pharmacy #[id number], 160, cm, 01/20/21 14:22:00 [...]
[2023-02-05 11:58] VITALS: BP 139/67; PULSE 96; RESP 18; TEMP 36.7; O2SAT 95
--- NOTE | 2023-02-05 12:03 | PC.NURSE ---
Patient alert and oriented. Arrived from home after falling from a standing position Patient states that she was watching t.v and saw an exercise she wanted to try. Patient reports was standing on one foot trying to balance when she lost her balence and fell on her roght side. Denies being light headed or dizzy before fall. States just lost balance. Reports right shoulder, scapula, and rib pain from falling on right side. Remains with hob flat with c collar in place.
[2023-02-05 14:07] VITALS: BP 128/60; PULSE 70; RESP 16; O2SAT 96
--- NOTE | 2023-02-05 14:16 | ED.GENADULT ---
HPI - General Adult General Chief complaint: Fall Stated complaint: Fall from standing per EMS Time Seen by Provider: 02/05/23 14:00 Source: patient Mode of arrival: EMS Limitations: no limitations History of Present Illness HPI narrative: Patient is a 82 year old female with a past medical history of afib on eliquis presenting today after a fall from standing. Patient explains she was trying an exercise where she stood on one leg when she lost her balance and fell. Patient denies any dizziness or lightheadedness before the fall and denies cp and sob. Patient reports she first hit her arm on a night stand before falling on her bottom onto the floor. Patient also states that she hit her head and there was no loss of consciousness. She is now having a headaches, right arm pain, right clavicle pain, and lower back pain. Patient is on eliquis but did not take todays dose, and has a history of an abdominal hematoma ( currently being followed by pcp and cardiology for this). Denies fever, chills, changes in vision, incontinence, shortness of breath, chest pain, dizziness, weeakness, palpitations, paressthesias in the extremities, nausea or vomiting, no changes in urinary bowel habits, no signs of urinary/bowel incontinence/retention. No other preceding symptoms to fall. Related Data Previous Rx's Medication Instructions Recorded morphine 15 mg immediate release 15 mg PO Q6H PRN pain 5 days #10 02/05/23 tablet tabs Allergies Allergy/AdvReac Type Severity Reaction Status Date / Time Amoxicillin / Clavulanate Allergy Nausea Uncoded 02/05/23 14:32 Review of Systems Review of Systems: Constitutional : No Weight loss, No Fever, No Chills, No Fatigue, No Malaise ENT/Mouth : No sore throat, No Rhinorrhea Eyes: No Eye Pain, No Swelling, No Redness Cardiovascular : No Chest Pain, No SOB, No Dyspnea on Exertion, No Orthopnea, No Edema, No Palpitations Respiratory : No Cough, No Sputum, No Wheezing Gastrointestinal : No Nausea, No Vomiting, No Diarrhea, No Constipation, No abdominal Pain, No Hematochezia, No Melena Genitourinary : No Dysuria, No Urinary Frequency, No Hematuria, Musculoskeletal : + pain of the right arm and shoulder, clavicle and coccyx Skin : No Skin Lesions, No rash Neuro : No Weakness, No Numbness, No Dizziness, No Headache Psych : No Anxiety/Panic, No Depression All other systems reviewed and are negative Yes all other systems are reviewed and are negative [facility] Past Medical History Attestation statement: The following information was validated with the patient. Source: old records reviewed and nursing notes reviewed Social History Social History Alcohol intake: former Smoked in Last 30 Days: No Advance Directives: No Physical Exam ED Vital Signs: Vital Signs - 24 hr 02/05/23 11:14 02/05/23 11:58 02/05/23 11:58 Temperature 98.2 F 98.1 F 98.1 F Pulse Rate 66 96 Respiratory Rate 19 18 Blood Pressure 133/61 139/67 Pulse Oximetry 96 95 Oxygen Delivery Method Room Air 02/05/23 14:07 02/05/23 16:05 Temperature Pulse Rate 70 82 Respiratory Rate 16 16 Blood Pressure 128/60 140/67 H Pulse Oximetry 96 95 Oxygen Delivery Method Room Air Room Air BMI result Body Mass Index 18.6 VSS Appearance: Alert.? Oriented X3.? No acute distress.? Head: Normocephalic, atraumatic, no step-offs or deformities Eyes: Pupils equal, round and reactive to light.?Extraocular movements intact and without pain. Neck: Normal inspection.? Neck supple.? CVS: Normal heart rate and rhythm.? Pulses normal.? No signs of hematoma Respiratory: No respiratory distress.? Breath sounds normal.? No signs of hematoma Abdomen: Soft and nontender.? No signs of hematoma Skin: Skin warm and dry. Normal skin turgor.? Extremities: No lower extremity edema.? No calf ttp. Patient has pain and difficulty moving the right arm secondary to pain. TTP to R distal clavicle. Normal sensation distal b/l. Normal cap refil < 2 seconds to b/l UE. 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 No wrist drop. 2+ brachial and radial pulses equal and b/l. full painless rom to L shoulder. Full rom to b/l elbows, wrist fingers. No distracting injuries. Back: No midline tenderness, no C-spine tenderness, full range of motion, no CVA tenderness bilaterally. Pain to sacral/coccyx region. Neuro: Oriented X 3.? No motor deficit.? No sensory deficit. CN 2-12 intact . No saddle paresthesias. Ambulating with steady gait normal coordination. Normal [id number], [id number]. Course Reevaluation(s) Reevaluation #1: CBC noted to have a macrocytic anemia the hemoglobin of 9.8, hematocrit 31.6. No reports of acute bleeding at this time. Chemistry unremarkable. Troponin negative, EKG nonischemic unlikely ACS. No shortness of breath unlikely PE. This is likely mechanical fall. Chest x-ray unremarkable. X-ray of sacrum and coccyx no acute findings. Patient is noted to have a nondisplaced distal clavicular fracture, no signs of brachial plexus injury. Arthritis at the AC joint. Patient will be given morphine. Will be placed in a sling. Will be discharged with orthopedic follow-up. Educated patient on diagnosis and treatment plan, answered all question, patient verbalizes understanding. At this time patient will be discharged home, advised to return with new or worsening symptoms. Educated on worrisome signs and symptoms and when to return. At this time I feel comfortable discharge home. Time: 17:24 Medications Administered Discontinued Medications Generic Name Dose Route Start Last Admin Trade Name Apolinar PRN Reason Stop Dose Admin Morphine Sulfate 15 mg 02/05/23 17:18 02/05/23 17:21 Morphine Sulfate Immed Release 15 Mg Tablet PO 02/05/23 17:19 15 mg ONCE ONE Administration Medical Decision Making Medical Decision Making [facility] Narrative: 1729 82 year old female presents s/p mechanical fall patient trying to exercise and balance on one foot complaining of lower back pain, r arm pain and r clavicle pain. PE Patient has pain and difficulty moving the right arm secondary to pain. TTP to R distal clavicle. Normal sensation distal b/l. Normal cap refil < 2 seconds to b/l UE. 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 No wrist drop. 2+ brachial and radial pulses equal and b/l. full painless rom to L shoulder. Full rom to b/l elbows, wrist fingers. No distracting injuries. Concerned that this was a mechanical fall with associated right-sided clavicular fracture. Will rule out fractures to humerus, sacrum and coccyx. No signs of neurovascular compromise, threat to Goodman, cauda equina, cord compression, fractures, dislocations of spine or traumatic subluxations. Patient did hit her head however no loss of consciousness unlikely intracranial hemorrhage, stroke, posterior stroke normal neuro exam. No signs of traumatic injury to chest, abdomen or pelvis. Breath sounds clear no signs of flail chest, pneumothorax. Abdomen soft nontender nondistended unlikely 8 acute traumatic injuries to abdomen. I do not suspect ACS, PE. Plan- labs, imaging, EKG. Differential Diagnosis Differential Diagnoses: The differential diagnosis associated with the presentation includes Concerned that this was a mechanical fall with associated right-sided clavicular fracture. Will rule out fractures to humerus, sacrum and coccyx. No signs of neurovascular compromise, threat to Goodman, cauda equina, fractures, dislocations of spine or traumatic subluxations. Patient did hit her head however no loss of consciousness unlikely intracranial hemorrhage, stroke, posterior stroke normal neuro exam. No signs of traumatic injury to chest, abdomen or pelvis. Breath sounds clear no signs of flail chest, pneumothorax. Abdomen soft nontender nondistended unlikely 8 acute traumatic injuries to abdomen. I do not suspect ACS, PE. Admission/Observation Consideration of admission/observation: Escalation of care including admission/observation considered Unlikely Lab Data MDM Lab Attestation statement: I reviewed the patient's lab results. 02/05/23 15:54 02/05/23 15:54 Labs: Lab Results 02/05/23 02/05/23 02/05/23 Range/Units 15:54 15:54 15:54 WBC 6.3 (4.8-10.8) X10*3/uL RBC 3.16 L (4.20-5.50) X10*6/uL Hgb 9.8 L (12.0-16.0) g/dl Hct 31.6 L (37.0-47.0) % MCV 100.0 H (80.0-98.0) fL MCH 31.0 (27.0-33.0) pg MCHC 31.0 (31.0-35.0) g/dl RDW 14.2 (11.0-16.0) % Plt Count 205 (160-400) X10*3/uL MPV 10.2 (9.4-12.3) fL Immature Gran % (Auto) 0.3 (0.0-0.4) % Neut % (Auto) 76.6 H (45-73) % Lymph % (Auto) 12.8 L (20-40) % Collier % (Auto) 7.9 (2-11) % Eos % (Auto) 1.9 (0-4) % Baso % (Auto) 0.5 (0-2) % Lymph # (Auto) 0.8 L (1.2-4.9) X10*3/uL Collier # (Auto) 0.5 (0.1-1.2) X10*3/uL Eos # (Auto) 0.1 (0.0-0.4) X10*3/uL Baso # (Auto) 0.0 (0.0-0.2) X10*3/uL Abs Immat Gran (auto) 0.02 (0.00-0.03) X10*3/uL Absolute Neuts (auto) 4.8 (2.0-8.3) x10*3/uL Absolute Nucleated RBC 0.000 (0.0-0.012) X10*3/uL Nucleated RBC % (auto) 0.0 (0.0-0.2) /100WBC Sodium 144 (135-145) mmol/L Potassium 4.4 (3.3-5.1) mmol/L Chloride 110 H (96-108) mmol/L Carbon Dioxide 27 (22-29) mmol/L Anion Gap 11 L (12-20) BUN 12 (9-16) mg/dL Creatinine 0.82 (0.5-1.4) mg/dL Estim Creat Clear Calc 43.1 Estimated GFR > 60 Random Glucose 94 (60-115) mg/dL Calcium 9.8 (8.4-10.2) mg/dL Magnesium 2.1 (1.6-2.6) mg/dL Total Bilirubin 0.3 (0.0-1.0) mg/dL AST 14 (5-31) U/L ALT 7 (0-31) U/L Alkaline Phosphatase 65 (39-117) U/L Troponin I High Sens < 2.7 (<3.5-17.0) ng/L Total Protein 6.6 (6.5-8.0) g/dL Albumin 3.4 L (3.5-5.0) g/dL Independent Interpretation I performed an independent interpretation of an: EKG (Ventricular rate of 73 MN normal, QRS normal, QT/QTC normal. EKG normal sinus rhythm no ST elevations or inversions concerning for acute ischemia) and Plain X-Ray (X-ray unremarkable. Sacrum and coccyx is no fracture seen. Humerus showing nondisplaced distal clavicle fracture. Arthritis at AC joint. High humeral head question for rotator cuff disease. Osteopenia. Head CT unremarkable. No signs of cervical fracture, dislocation traumatic subluxations.) Radiology Impression Discussion of test interpretation with radiology: I have reviewed the radiologist's reading. Critical Care Time Critical Care Time Critical Care Time: No Discharge Plan Discharge Clinical Impression: Fall, Clavicle fracture Patient Disposition: Home, Self-Care Instructions: Clavicle Fracture (ED), Fall Prevention (ED) Additional Instructions: Take your medications as prescribed. If you were prescribed antibiotics today, it is important that you take your medication to their entirety, do not skip any doses, do not finish them early. Follow-up with your primary care provider this week. Return to the emergency department with new or worsening symptoms. Such as fevers, chills, chest pain, shortness of breath, nausea, vomiting, dizziness, headache, vision changes, lethargy In case of emergency call 911 A narcotic has been sent to your pharmacy please take this as prescribed. Do not take more than the prescribed dose. Narcotic medications can cause addiction. Please do not mix them with alcohol. Do not take them while driving or operating machinery. Do not take them with any other narcotics. Do not share them with friends or family. They can cause constipation. Take them only for severe pain. Mild to moderate pain: Ibuprofen every 6 hours, Tylenol every 4 as needed for pain or discomfort. For severe pain morphine can be taken please refer to morphine instructions below. Wear your sling as instructed. Return with numbness, tingling, significant bruising or hematoma as we described, wrist drop like instructed. Follow-up with the orthopedic team as soon as possible. XR/XR chest 1V IMPRESSION: No acute cardiopulmonary process. No overt evidence for acute traumatic injury. ? ?XR/XR sacrum coccyx min 2V IMPRESSION: Limited exam. No fracture seen. XR/XR humerus RT IMPRESSION: Nondisplaced distal clavicle fracture. Arthritis at the acromioclavicular joint. High humeral head questionable for rotator cuff disease. Osteopenia.? XR/XR clavicle RT IMPRESSION: Nondisplaced distal clavicle fracture. Arthritis at the acromioclavicular joint. High humeral head questionable for rotator cuff disease. Osteopenia.? CT/CT head/brain wo IV con IMPRESSION: CT HEAD: No acute intracranial finding. Sequela of microangiopathy and global volume loss ? CT CERVICAL SPINE: No cervical spine fracture or traumatic malalignment identified. Degenerative changes. ? Prescriptions: New morphine 15 mg tablet 15 mg PO Q6H PRN (Reason: pain) 5 Days Qty: 10 0RF Rx Instructions: Partial Fill upon patient request. Referrals: Bridgette Duffy MD [Primary Care Provider] - 2 days [facility] [Provider Group] - 1 day Stand Alone Forms: Work/School Release
--- NOTE | 2023-02-05 15:30 | ECG_ITS ---
Test Reason : FALL Blood Pressure : / mmHG Vent. Rate : 073 BPM Atrial Rate : 073 BPM P-R Int : 196 ms QRS Dur : 094 ms QT Int : 440 ms P-R-T Axes : 074 037 052 degrees QTc Int : 484 ms Normal sinus rhythm Normal ECG No previous ECGs available Referred By: Nabor Martinez Electronically Signed By:ANA ROSA CHAIDEZ
[2023-02-05 16:00] LABS: MANUAL DIFF FLAG NO
[2023-02-05 16:03] LABS: Basophils Percent Auto 0.5 % (0-2); Eosinophils Absolute Auto 0.1 X10*3/uL (0.0-0.4); Eosinophils Percent Auto 1.9 % (0-4); Hematocrit 31.6 % (37.0-47.0); Hemoglobin 9.8 g/dl (12.0-16.0); Imm Gran Abs Auto 0.02 X10*3/uL (0.00-0.03); Imm Gran Pct Auto 0.3 % (0.0-0.4); Lymphocytes Absolute Auto 0.8 X10*3/uL (1.2-4.9); Lymphocytes Percent Auto 12.8 % (20-40); Mean Platelet Volume 10.2 fL (9.4-12.3); Monocytes Absolute Auto 0.5 X10*3/uL (0.1-1.2); Monocytes Percent Auto 7.9 % (2-11); Neutrophils Absolute Auto 4.8 x10*3/uL (2.0-8.3); Neutrophils Percent Auto 76.6 % (45-73); Platelet Count 205 X10*3/uL (160-400); Red Blood Count 3.16 X10*6/uL (4.20-5.50); Red Cell Distribution Width 14.2 % (11.0-16.0); White Blood Count 6.3 X10*3/uL (4.8-10.8)
[2023-02-05 16:05] VITALS: BP 140/67; PULSE 82; RESP 16; O2SAT 95
[2023-02-05 16:20] LABS: Alanine Aminotransferase 7 U/L (0-31); Albumin Level 3.4 g/dL (3.5-5.0); Alkaline Phosphatase 65 U/L (39-117); Anion Gap 11 (12-20); Aspartate Amino Transferase 14 U/L (5-31); Bilirubin Total 0.3 mg/dL (0.0-1.0); Blood Urea Nitrogen 12 mg/dL (9-16); Calcium 9.8 mg/dL (8.4-10.2); Carbon Dioxide 27 mmol/L (22-29); Chloride 110 mmol/L (96-108); Creatinine Clr Calc Pharmacy 43.1; Estimated Glomerular Filt Rate > 60; Glucose Random 94 mg/dL (60-115); Magnesium 2.1 mg/dL (1.6-2.6); Potassium 4.4 mmol/L (3.3-5.1); Sodium 144 mmol/L (135-145); Total Protein 6.6 g/dL (6.5-8.0)
[2023-02-05 16:29] LABS: Troponin-I High Sensitivity < 2.7 ng/L (<3.5-17.0)
[2023-02-05] MEDS: Morphine Sulfate Immed Release 15 MG TABLET PO (17:21)
--- NOTE | 2023-02-05 18:00 | PC.NURSE ---
Discharge plan reviewed with patient who verbalized understanding
== END 2023-02-05 17:59 | disposition home or self-care (01) ==
PROVIDERS: Physician Assistant; Emergency Provider Emergency Medicine Emergency Medical Services; PCP Family Medicine
DX: S42.034A Nondisplaced fracture of lateral end of right clavicle, initial encounter for closed fracture (principal); W18.39XA Other fall on same level, initial encounter; R51.9 Headache, unspecified; M54.50 Low back pain, unspecified; M79.601 Pain in right arm; I48.91 Unspecified atrial fibrillation; Y93.B9 Activity, other involving muscle strengthening exercises; Y92.9 Unspecified place or not applicable; Y99.9 Unspecified external cause status; Z79.01 Long term (current) use of anticoagulants
CPT/HCPCS: 36415; 70450; 71045; 72125; 72220; 73000; 73060; 80053; 83735; 84484; 85025; 93005; 99284; 99285

== ENCOUNTER 2023-10-21 20:04 | Emergency (ER) | payer MEDICARE, SELFPAY ==
--- NOTE | ~2023-10-21 | CT_ITS ---
EXAMINATION: CT HEAD WITHOUT CONTRAST CLINICAL INFORMATION: Fall COMPARISON: Previous head CT most recent January 2023 TECHNIQUE: Contiguous axial imaging was performed from the skull base to vertex without intravenous administration of contrast. This CT examination was performed using dose optimization techniques as appropriate, variously including the following: *Automated exposure control *Adjustment of mA and/or kV according to patient size (this includes techniques or standardized protocols for targeted exams where dose is matched to indication/reason for exam; i.e. extremities or head) *Use of iterative reconstruction technique DLP: 552 mGy-cm FINDINGS: There is no evidence of an extra-axial collection. There is no evidence of intra or extra-axial hemorrhage. The ventricles and extra-axial CSF spaces are prominent suggestive of generalized atrophy. There is nonspecific periventricular white matter disease. No mass, mass effect or infarct. No skull fracture. Small amount of fluid in the right mastoid air cells. The paranasal sinuses, mastoid air cells and middle ears are otherwise clear. CT/CT head/brain wo IV con IMPRESSION: No acute intracranial findings. Generalized atrophy and nonspecific periventricular white matter disease similar to previous exam.
--- NOTE | ~2023-10-21 | XR_ITS ---
EXAMINATION: XR SHOULDER, LEFT CLINICAL INFORMATION: Abnormal x-rays. COMPARISON: Humerus and shoulder radiographs from earlier the same date. TECHNIQUE: AP, Grashey, and scapular Y views of the left shoulder. FINDINGS: Bones are osteopenic. No acute fractures are identified. There is cephalad migration of the humeral head, abutting the undersurface of the acromion, most consistent with chronic changes of a rotator cuff tear. No dislocation. No aggressive osseous lesions. Soft tissues are unremarkable. XR/XR shoulder LT min 2V IMPRESSION: 1. No acute fracture or dislocation. 2. High riding humeral head, most consistent with chronic rotator cuff tear.
--- NOTE | ~2023-10-21 | XR_ITS ---
EXAMINATION: XR HUMERUS, LEFT CLINICAL INFORMATION: Fall. Pain. COMPARISON: None available. TECHNIQUE: AP and lateral views of the left humerus. FINDINGS: The bones are osteopenic. No fracture or dislocation. The humeral head may be high with respect to the glenoid questionable for rotator cuff disease. There is arthritis at the acromioclavicular joint. Visualized elbow joint is unremarkable. XR/XR humerus LT IMPRESSION: No fracture or dislocation.
--- NOTE | ~2023-10-21 | XR_ITS ---
EXAMINATION: XR SHOULDER, LEFT CLINICAL INFORMATION: Fall COMPARISON: None available. TECHNIQUE: AP internal rotation and scapular Y views of the left shoulder. FINDINGS: The bones and soft tissues are normal. Bones are osteopenic. No fracture. Humeral head is internally rotated and appears to be riding high within the glenohumeral joint space. No abnormal soft tissue calcifications. Left atrial appendage occluder. Visualized lungs demonstrates a rounded opacity in the left upper lobe measuring 3.2 cm with central lucency and mildly spiculated borders. XR/XR shoulder LT min 2V IMPRESSION: No acute fractures. Internally rotated humeral head. Given only 2 views available, cannot exclude subluxation. Dislocation less likely. Recommend repeat shoulder series. Incidentally noted rounded opacity with central lucency and mildly spiculated borders in the left upper lobe. This is only seen on one view and may represent superimposed vessels. However, a cavitary lesion cannot be excluded. Recommend chest x-ray for further evaluation.
--- NOTE | ~2023-10-21 | XR_ITS ---
EXAMINATION: XR CHEST CLINICAL INFORMATION: Abnormal shoulder x-rays COMPARISON: Shoulder radiographs from the same day, chest x-ray 02/05/2023 TECHNIQUE: 2 views of the chest were obtained. FINDINGS: Lung volumes are symmetric. No focal consolidation is seen. Density overlying the left upper lung on recent shoulder radiographs is suspected to reflect vascular shadow, with the current chest x-ray appearance unchanged from 02/05/2023. No evidence of pneumothorax, pleural effusion, or pulmonary edema. Cardiac size is within normal limits. Interatrial device noted overlying the heart. Calcification is present at the aortic arch. Redemonstrated hiatal hernia. No acute osseous findings are seen. XR/XR chest 2V IMPRESSION: No acute cardiopulmonary findings. Redemonstrated hiatal hernia.
[2023-10-21 20:12] VITALS: BP 166/81; PULSE 80; RESP 17; TEMP 36.8; O2SAT 97
[2023-10-21 20:18] VITALS: BP 140/60; BP 166/81; PULSE 75; RESP 16; O2SAT 97; BMI 21.6
--- NOTE | 2023-10-21 21:22 | ED.FALL ---
HPI - Fall General Chief Complaint: Fall Stated Complaint: FALL W/ HEADSTRIKE, L SHOULDER PAIN,HEADACHE Time Seen by Provider: 10/21/23 21:14 Source: patient and EMS Mode of arrival: EMS Limitations: no limitations History of Present Illness HPI Narrative: 83-year-old female brought in by ambulance for evaluation after a mechanical fall at home. Patient missed a step at home causing her to have a mechanical fall on the carpet at home, patient denies any dizziness or lightheadedness or chest pain or shortness of breath before or after the fall, patient landed on her left side in particular on left shoulder, hit her head on the carpet with no LOC, patient is complaining of left shoulder pain, otherwise no headache or blurry vision or neck pain. patient has a trigger finger on the left-hand wearing brace before the event no new hand injury or pain. Patient takes Plavix but no AC. Related Data Previous Rx's ?Medication ?Instructions ?Recorded morphine 15 mg immediate release 15 mg PO Q6H PRN pain 5 days #10 02/05/23 tablet tabs Allergies Allergy/AdvReac Type Severity Reaction Status Date / Time Amoxicillin / Clavulanate Allergy Nausea Uncoded 10/21/23 20:22 Review of Systems Review of Systems: all other systems are reviewed and are negative Constitutional: Reports as per HPI and Reports no additional constitutional complaints Eyes: Reports as per HPI and Reports no additional eye complaints Reports system reviewed and no additional complaints, except as documented Cardiovascular: Reports as per HPI and Reports no additional cardiovascular complaints Respiratory: Reports as per HPI and Reports no additional respiratory complaints Gastrointestinal: Reports as per HPI and Reports no additional gastrointestinal complaints Genitourinary: Reports no additional female genitourinary complaints Musculoskeletal: Reports no additional musculoskeletal complaints Skin/Breast: Reports system reviewed and no additional complaints, except as docu Psychiatric: Reports no additional psychiatric complaints Endocrine: Reports no additional endocrine complaints Hematologic/Lymphatic: Reports no additional hematologic/lymphatic complaints Allergic/Immunologic: Reports no additional allergic/immunologic complaints Reports system reviewed and no additional complaints, except as documented and Reports Abnormal speech present [facility] Social History Social History Alcohol intake: former Smoked in Last 30 Days: No Use of substances other than those prescribed or required for medical reasons: No Advance Directives: No Advance Directives Information Provided: No Do you have a plan to hurt others: No Plan Physical Exam Vital Signs: Vital Signs: Last Vital Signs Temp 98.2 F 10/21/23 20:12 Pulse 75 10/21/23 20:18 Resp 16 10/21/23 20:18 BP 166/81 H 10/21/23 20:18 Pulse Ox 97 10/21/23 20:18 O2 Del Method Room Air 10/21/23 20:18 BMI result Body Mass Index 21.6 Vital signs have been reviewed and appear to be correct. Blood pressure elevated. Heart rate normal. Respiratory rate normal. Temperature normal. Oxygen saturation normal. Appearance: Alert. Oriented X3. No acute distress. Head: Normal external exam. Normocephalic. Atraumatic. No Ward signs noted. No raccoon eyes noted Eyes: PERRLA. EOMI. Conjunctiva and sclera normal. Eyelids normal. ENT: TM's Normal. Pharynx normal. Uvula midline. Moist mucous membranes. No trismus noted. No drooling noted. No muffled voice noted. Neck: Normal inspection. Neck supple. FROM. No adenopathy. Thyroid Normal. No meningeal signs. No neck mass noted. CVS: Normal heart rate and rhythm. Heart sound normal. No murmurs noted. Pulses normal throughout. Respiratory: No respiratory distress. Painless inspiration. Breath sounds normal. No wheezes/rales/rhonchi noted. Chest nontender. No accessory muscle usage noted or decreased air movement noted. Abdomen: Soft and nontender. Bowel sounds normal in all 4 quadrants. No distention noted. No organomegaly noted. No visible injury noted. Back: No CVA tenderness. Full range of motion noted. Skin: Skin warm and dry. Normal skin color. Normal skin turgor. No rashes/lesions/lacerations noted. Extremities: left shoulder hold adduction position with painful abduction, no deformity noted in the left shoulder, neurovascularly intact. Neuro: Oriented X 3. Cranial nerve exam: II-XII are grossly intact No motor deficit. No sensory deficit. Reflexes normal. Course Reevaluation(s) Reevaluation #1: [age] year female s/p mechanical fall with left shoulder injury, x-ray showing no shoulder fracture or dislocation patient with known old chronic rotator cuff issue on the left shoulder. GCS 15, normal neuro exam and unremarkable head CT. Patient feels much better with oxycodone, will provide the patient with shoulder immobilizer and sling and was instructed to have NSAIDs if needed for pain , and follow-up with Dr. Lainez. Time: 01:14 Medications Administered Discontinued Medications Generic Name Dose Route Start Last Admin Trade Name Freq PRN Reason Stop Dose Admin Ibuprofen 400 mg 10/21/23 21:20 10/21/23 21:27 Ibuprofen 400 Mg Tablet PO 10/21/23 21:21 400 mg ONCE ONE Administration Oxycodone HCl 5 mg 10/21/23 21:20 10/21/23 21:26 Oxycodone Hcl Immed Release 5 Mg Tablet PO 10/21/23 21:21 5 mg ONCE ONE Administration Medical Decision Making Differential Diagnosis Differential Diagnoses: The differential diagnosis associated with the presentation includes ( Intracranial bleed, left shoulder fracture, left shoulder dislocation, ACS, electrolyte derangement, severe anemia , pneumonia, pneumothorax, lung mass.) Admission/Observation Consideration of admission/observation: Escalation of care including admission/observation considered Lab Data MDM Lab Attestation statement: I reviewed the patient's lab results. 10/21/23 22:07 10/21/23 22:07 Labs: Lab Results 10/21/23 Range/Units 22:07 WBC 5.9 (4.8-10.8) X10*3/uL RBC 3.22 L (4.20-5.50) X10*6/uL Hgb 9.2 L (12.0-16.0) g/dl Hct 28.3 L (37.0-47.0) % MCV 87.9 (80.0-98.0) fL MCH 28.6 (27.0-33.0) pg MCHC 32.5 (31.0-35.0) g/dl RDW 14.6 (11.0-16.0) % Plt Count 224 (160-400) X10*3/uL MPV 9.4 (9.4-12.3) fL Immature Gran % (Auto) 0.3 (0.0-0.4) % Neut % (Auto) 64.3 (45-73) % Lymph % (Auto) 19.8 L (20-40) % Brown % (Auto) 8.7 (2-11) % Eos % (Auto) 6.0 H (0-4) % Baso % (Auto) 0.9 (0-2) % Lymph # (Auto) 1.2 (1.2-4.9) X10*3/uL Brown # (Auto) 0.5 (0.1-1.2) X10*3/uL Eos # (Auto) 0.4 (0.0-0.4) X10*3/uL Baso # (Auto) 0.1 (0.0-0.2) X10*3/uL Abs Immat Gran (auto) 0.02 (0.00-0.03) X10*3/uL Absolute Neuts (auto) 3.8 (2.0-8.3) x10*3/uL Absolute Nucleated RBC 0.000 (0.0-0.012) X10*3/uL Nucleated RBC % (auto) 0.0 (0.0-0.2) /100WBC Sodium 139 (135-145) mmol/L Potassium 4.1 (3.3-5.1) mmol/L Chloride 108 (96-108) mmol/L Carbon Dioxide 22 (22-29) mmol/L Anion Gap 13 (12-20) BUN 17 H (9-16) mg/dL Creatinine 1.06 (0.5-1.4) mg/dL Estim Creat Clear Calc 36.8 Estimated GFR 50 Random Glucose 99 (60-115) mg/dL Calcium 9.3 (8.4-10.2) mg/dL Troponin I High Sens < 2.7 (<3.5-17.0) ng/L Independent Interpretation I performed an independent interpretation of an: EKG ( Normal sinus rhythm at 75 beats per minute with premature supraventricular complex, slight prolongation of NE interval with first-degree AV block otherwise unremarkable intervals.), Plain X-Ray ( Left shoulder/ Chest: No acute cardiopulmonary findings, 1. No acute fracture or dislocation. 2. High riding humeral head, most consistent with chronic rotator cuff tear. ) and CT Scan ( Head: No acute intracranial pathology.) Radiology Impression Discussion of test interpretation with radiology: I have reviewed the radiologist's reading. Discharge Plan Discharge Clinical Impression: Tendinitis of left rotator cuff Patient Disposition: Home, Self-Care Instructions: Rotator Cuff Tendinitis (ED) Prescriptions: No Action morphine 15 mg tablet 15 mg PO Q6H PRN (Reason: pain) 5 Days Qty: 10 0RF Rx Instructions: Partial Fill upon patient request. Referrals: James Lainez MD [Physician] - Bridgette Duffy MD [Primary Care Provider] - Print Language: Maldivian
--- NOTE | 2023-10-21 21:22 | ECG_ITS ---
Test Reason : A FIB Blood Pressure : / mmHG Vent. Rate : 075 BPM Atrial Rate : 075 BPM P-R Int : 204 ms QRS Dur : 070 ms QT Int : 424 ms P-R-T Axes : 082 072 061 degrees QTc Int : 473 ms Sinus rhythm with Premature supraventricular complexes Otherwise normal ECG When compared with ECG of 05-FEB-2023 15:41, Premature supraventricular complexes are now Present QRS duration has decreased Referred By: Kristi Madden Electronically Signed By:NADIA ABDI
[2023-10-21] MEDS: oxyCODONE HCl Immed Release 5 MG TABLET PO (21:26)
[2023-10-21] MEDS: Ibuprofen 400 MG TABLET PO (21:27)
[2023-10-21 22:11] LABS: MANUAL DIFF FLAG NO
[2023-10-21 22:12] LABS: Basophils Absolute Auto 0.1 X10*3/uL (0.0-0.2); Basophils Percent Auto 0.9 % (0-2); Eosinophils Absolute Auto 0.4 X10*3/uL (0.0-0.4); Hematocrit 28.3 % (37.0-47.0); Hemoglobin 9.2 g/dl (12.0-16.0); Imm Gran Abs Auto 0.02 X10*3/uL (0.00-0.03); Imm Gran Pct Auto 0.3 % (0.0-0.4); Lymphocytes Absolute Auto 1.2 X10*3/uL (1.2-4.9); Lymphocytes Percent Auto 19.8 % (20-40); Mean Corpuscular HGB Conc 32.5 g/dl (31.0-35.0); Mean Corpuscular Hemoglobin 28.6 pg (27.0-33.0); Mean Corpuscular Volume 87.9 fL (80.0-98.0); Mean Platelet Volume 9.4 fL (9.4-12.3); Monocytes Absolute Auto 0.5 X10*3/uL (0.1-1.2); Monocytes Percent Auto 8.7 % (2-11); Neutrophils Absolute Auto 3.8 x10*3/uL (2.0-8.3); Neutrophils Percent Auto 64.3 % (45-73); Platelet Count 224 X10*3/uL (160-400); Red Blood Count 3.22 X10*6/uL (4.20-5.50); Red Cell Distribution Width 14.6 % (11.0-16.0); White Blood Count 5.9 X10*3/uL (4.8-10.8)
[2023-10-21 22:28] LABS: Anion Gap 13 (12-20); Blood Urea Nitrogen 17 mg/dL (9-16); Calcium 9.3 mg/dL (8.4-10.2); Carbon Dioxide 22 mmol/L (22-29); Chloride 108 mmol/L (96-108); Creatinine Clr Calc Pharmacy 36.8; Estimated Glomerular Filt Rate 50; Glucose Random 99 mg/dL (60-115); Potassium 4.1 mmol/L (3.3-5.1); Sodium 139 mmol/L (135-145)
[2023-10-21 22:39] LABS: Troponin-I High Sensitivity < 2.7 ng/L (<3.5-17.0)
[2023-10-22 01:29] VITALS: BP 118/52; PULSE 61; RESP 16; TEMP 36.5; O2SAT 97
[2023-10-22 05:18] VITALS: BP 136/61; PULSE 57; RESP 16; TEMP 36.4; O2SAT 96
[2023-10-22] MEDS: Acetaminophen 325 MG TABLET 650 MG PO (05:52)
[2023-10-22 06:16] VITALS: BP 136/61; PULSE 57; RESP 16; TEMP 36.4; O2SAT 96
== END 2023-10-22 06:28 | disposition home or self-care (01) ==
PROVIDERS: Emergency Provider Emergency Medicine; PCP Family Medicine
DX: M65.222 Calcific tendinitis, left upper arm (principal); R51.9 Headache, unspecified; M25.512 Pain in left shoulder; I48.91 Unspecified atrial fibrillation; Z79.899 Other long term (current) drug therapy
CPT/HCPCS: 36415; 70450; 71046; 73030; 73060; 80048; 84484; 85025; 93005; 99284; 99285

== ENCOUNTER → 2023-10-21 21:22 | Outpatient (BNV) | payer MEDICARE, SELFPAY | PROVIDERS: Emergency Provider Emergency Medicine; PCP Family Medicine; Visit Provider Internal Medicine | DX: I49.1 Atrial premature depolarization (principal) | CPT/HCPCS: 93010 ==

== ENCOUNTER 2023-10-29 14:17 | Outpatient (AMB) | payer MEDICARE, SELFPAY ==
--- NOTE | 2023-10-29 14:23 | MHC.OFFVIS ---
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 Patient report that she had a fall causing her to land on her left shoulder. Currently her pain comes with movement of her arm. States her pain is primarily located in her shoulder and at times will radiate down her arm to her bicep area. Denies any numbness or tingling. Finds little relief with Tylenol. 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 She currently states she has pain at her shoulder which radiates down to her arm and bicep area. Her pain comes with movement of her arm. She denies any numbness or tingling. She finds mild relief with Tylenol. She does not have a history of diabetes. [facility] Surgical History (Updated 10/29/23 @ 14:30 by DAVY Lambert) History of surgery on left wrist Social History (Updated 10/29/23 @ 14:30 by DAVY Lambert) Alcohol intake: former Patient Tobacco Use Status: Former Tobacco user Current occupational status: retired Current occupation: right hand dominant Review of Systems Const All systems reviewed & are unremarkable except as noted in HPI and below Physical Exam Vital Signs: BMI result Body Mass Index 21.5 Const General: cooperative, healthy appearing, comfortable, no acute distress, well developed and alert Orientation/consciousness: patient oriented x3 HEENT Head: Yes normal to inspection, Yes normocephalic and Yes atraumatic Eyes General: appearance normal, both eyes and all related structures Resp Effort & Inspection: normal respiratory effort and able to speak in complete sentences Cardio Rate: regular rate Peripheral pulses: Peripheral pulses 2+ throughout GI Palpation (GI): Soft to palpation Skin Lesions: no lesions Rashes: no rashes Neuro General: patient oriented x3 Extrem Other: Left shoulder normal to inspection. Tenderness over the bicipital groove and along the deltoid region of the shoulder. Forward flexion to 175, external rotation to 90, internal rotation to S1. 5/5 RTC strength. Negative Jimenez and cross body abduction. NVI. Office Procedures Joint Injection/Drain Joint Injection/Drain Primary Site: left shoulder Prep: site was prepped using aseptic technique, ethochloride spray was applied and injection warnings given Injected: 80 mg of, DepoMedrol, with 8 mL of, 1% plain lidocaine and in the subcromial space Approach Used: posterolateral Procedure: The patient tolerated the procedure well and there was some relief with the local anesthesia Coding 02959 - Glenohumeral/Tronchanteric Bursa/Intraarticular Procedure code (CPT) selection complete Results Reviewed Results Reviewed: XR shoulder LT min 2V 10/21/23 IMPRESSION: 1. No acute fracture or dislocation. 2. High riding humeral head, most consistent with chronic rotator cuff tear. Assessment & Plan Assessment & Plan (1) Tendinitis of left rotator cuff: Code(s): M75.82 - Other shoulder lesions, left shoulder Category: Medical Plan We discussed options today which include steroid injection. They did consent to move forward with the left shoulder injection, which was tolerated well. I recommended rest, ice and elevation and OTC anti-inflammatories PRN for discomfort. If symptoms persist or worsens over the next 6-8 weeks, patient will contact the office, otherwise follow-up as needed. Medications: Discontinued morphine Partial Fill upon patient request. Discontinued Reason: Patient no longer taking 15 mg PO Q6H 5 days PRN 10 tabs 0RF pain Patient Instructions: Scribed for Marybel Wolfe PA-C, by Justo Lucero family practice medical doctor, on 10/29/2023 at 2:15 PM EST. IMarybel PA-C, have personally reviewed and agree with the information entered by the scribe. Coding Level of Care Code New Pt Level 3 (92482) Diagnoses Tendinitis of left rotator cuff M75.82 CPT Codes Coding - Joint 7: 72568 - Glenohumeral/Tronchanteric Bursa/Intraarticular ([id number])
[2023-10-29 14:31] VITALS: BMI 21.5
== END 2023-10-29 15:49 | disposition home or self-care (01) ==
PROVIDERS: PCP Family Medicine; Visit Provider Physician Assistant
DX: M75.82 Other shoulder lesions, left shoulder (principal)
CPT/HCPCS: 20610; 99204

== ENCOUNTER → 2023-10-29 14:17 | Outpatient (BNVA) | payer MEDICARE, SELFPAY | PROVIDERS: PCP Family Medicine; Visit Provider Physician Assistant | DX: M75.82 Other shoulder lesions, left shoulder (principal) | CPT/HCPCS: 20610; 99202; J1010 ==

== ENCOUNTER 2024-08-31 12:22 | Inpatient (IN) | payer MEDICARE, SELFPAY ==
[2024-08-31] VITALS (10 sets, daily range): BP systolic 127–140; BP diastolic 51–69; PULSE 70–83; RESP 16–18; TEMP 36.5–36.8; O2SAT 96–99; BMI 18.9
--- NOTE | ~2024-08-31 | XR_ITS ---
EXAMINATION: XR CHEST CLINICAL INFORMATION: cough COMPARISON: 10/21/2023. TECHNIQUE: Frontal view of the chest was obtained. FINDINGS: Single lead left-sided pacer in place with lead extending into the right ventricle. Mildly elevated left hemidiaphragm. Borderline cardiac enlargement. Aortic valve calcification. Mediastinal and hilar contours appear normal.. Left atrial appendage occlusion device. The lungs are clear bilaterally. No pneumothorax or effusion. No focal osseous or soft tissue abnormality. Surgical clips left breast. Degenerative spinal changes. XR/XR chest 1V IMPRESSION: 1. Borderline cardiac enlargement with atrial appendage occlusion device. Single-lead pacer with lead in the right ventricle. 2. Hyperaerated lungs with no definite active disease. Electronically signed by: Lee Ibarra MD 08/31/2024 04:25 PM EDT
--- NOTE | ~2024-08-31 | CT_ITS ---
CLINICAL HISTORY: left abdominal pain, leukocytosis, bandemia CT abdomen with contrast Comparison: None Findings: No consolidation or effusion. Mild bilateral basilar atelectasis. The gallbladder demonstrates possible slight gallbladder wall thickening with no definite gallstones. No intrahepatic biliary ductal dilatation. Common bile duct measures up to 7 mm which is mildly dilated. No definite stones in the common bile duct. Several small hepatic hypodense lesions which are too small to be fully characterized. The spleen is unremarkable. Pancreas somewhat atrophic. Thickening of left adrenal. There is a 1.1 cm stone in right renal pelvis and a 1.4 cm stone in left renal pelvis. 8 mm nonobstructing right renal stone in 2 mm punctate nonobstructing left renal stone. Enhancement of bilateral kidneys with no hydronephrosis. Bilateral renal very small hypodense lesions which are too small to be fully characterized. No bowel obstruction, pneumoperitoneum, or pneumatosis. There is circumferential wall thickening of visualized part of the transverse colon, splenic flexure and descending colon suggestive of colitis. No free fluid in the abdomen. No loculated fluid collection. Atherosclerotic vascular disease with no aneurysm of the abdominal aorta. No acute fracture. Grade 2 anterolisthesis at L4-5. Diffuse demineralization. Degenerative disc disease especially at L4-5. IMPRESSION: 1. Findings suggestive of colitis involving the transverse and descending colon which could be inflammatory or infectious in etiology. 2. Bilateral nonobstructing renal stones and stones in bilateral renal pelvis. No hydronephrosis. 3. Mild dilatation of the common bile duct with no definite choledocholithiasis. Correlate with LFTs and if indicated follow-up MRCP could be obtained. 4. Additional nonacute findings as described. This document has been electronically signed by: Delores Huddleston MD on 08/31/2024 17:43:07
--- NOTE | 2024-08-31 13:00 | ED_ITS ---
HPI - General Adult General Chief complaint: Nausea/Vomiting/Diarrhea Stated complaint: Dehydration, weakness Time Seen by Provider: 08/31/24 15:46 Source: patient Mode of arrival: ambulatory Limitations: no limitations History of Present Illness ED Provider: DR. Madden HPI narrative: 84-year-old female otherwise healthy presented with 4 days history of cough, generalized body ache, nonbloody watery diarrhea, left-sided abdominal pain, and chills. No exposure to a sick contacts, recent travel, recent use of antibiotic, dry cough on and off for 4 days, no blood in the diarrhea, able to tolerate p.o. fluid intake but overall no appetite for food. No history of intra-abdominal surgery. No bowel movement since yesterday with improvement of the diarrhea, patient feels dehydrated, dry mouth and thirsty. Month ago patient had dental workup required no antibiotic still complaining of dental pain. Related Data Home Medications ?Medication ?Instructions ?Recorded ?Confirmed citalopram 20 mg tablet 20 mg PO DAILY 10/29/23 clopidogrel 75 mg tablet 75 mg PO DAILY 10/29/23 diltiazem HCl 360 mg 360 mg PO DAILY 10/29/23 capsule,extended release 24 hr fluticasone propionate 50 2 spray intranasal DAILY 10/29/23 mcg/actuation nasal spray,suspension pantoprazole 40 mg tablet,delayed 40 mg PO DAILY 10/29/23 release tiotropium bromide 18 mcg capsule 1 cap inhalation DAILY 10/29/23 with inhalation device (Spiriva with HandiHaler) Allergies Allergy/AdvReac Type Severity Reaction Status Date / Time Amoxicillin / Clavulanate Allergy Nausea Uncoded 08/31/24 13:06 Review of Systems 2 Review of Systems: All other systems are reviewed and are negative Constitutional: Reports as per HPI and Reports no additional constitutional complaints Eyes: Reports as per HPI and Reports no additional eye complaints Reports system reviewed and no additional complaints, except as documented Cardiovascular: Reports as per HPI and Reports no additional cardiovascular complaints Respiratory: Reports as per HPI and Reports no additional respiratory complaints Gastrointestinal: Reports as per HPI and Reports no additional gastrointestinal complaints Genitourinary: Reports no additional female genitourinary complaints Musculoskeletal: Reports no additional musculoskeletal complaints Skin/Breast: Reports system reviewed and no additional complaints, except as docu Psychiatric: Reports no additional psychiatric complaints Endocrine: Reports no additional endocrine complaints Hematologic/Lymphatic: Reports no additional hematologic/lymphatic complaints Allergic/Immunologic: Reports no additional allergic/immunologic complaints Reports system reviewed and no additional complaints, except as documented and Reports Abnormal speech present [facility] Past Medical History Surgical History History of surgery on left wrist Social History Social History Alcohol intake: former Patient Tobacco Use Status: Former Tobacco user Smoked in Last 30 Days: No Use of substances other than those prescribed or required for medical reasons: No Advance Directives: No Advance Directives Information Provided: Yes Do you have a plan to hurt others: No Plan Current occupational status: retired Current occupation: right hand dominant Physical Exam ED Vital Signs: Vital Signs - 24 hr 08/31/24 13:00 08/31/24 15:29 08/31/24 15:58 Temperature 97.9 F 97.7 F Pulse Rate 83 70 71 Respiratory Rate 16 18 Blood Pressure 140/60 H 133/65 133/69 Pulse Oximetry 98 97 Oxygen Delivery Method Room Air Room Air 08/31/24 16:04 08/31/24 16:05 08/31/24 17:36 Temperature 97.7 F Pulse Rate 71 78 Respiratory Rate Blood Pressure 136/62 140/68 H Pulse Oximetry Oxygen Delivery Method 08/31/24 17:40 Temperature 97.7 F Pulse Rate 70 Respiratory Rate 18 Blood Pressure 132/64 Pulse Oximetry 98 Oxygen Delivery Method Room Air BMI result Body Mass Index 18.9 Vital signs have been reviewed and appear to be correct. Blood pressure elevated. Heart rate normal. Respiratory rate normal. Temperature normal. Oxygen saturation normal. Appearance: Alert. Oriented X3. No acute distress. Head: Normal external exam. Normocephalic. Atraumatic. No Ward signs noted. No raccoon eyes noted. Mouth exam: Tenderness over upper left 2nd molar tooth with no gum swelling or fluctuation. Eyes: PERRLA. EOMI. Conjunctiva and sclera normal. Eyelids normal. ENT: TM's Normal. Pharynx normal. Uvula midline. Moist mucous membranes. No trismus noted. No drooling noted. No muffled voice noted. Neck: Normal inspection. Neck supple. FROM. No adenopathy. Thyroid Normal. No meningeal signs. No neck mass noted. CVS: Normal heart rate and rhythm. Heart sound normal. No murmurs noted. Pulses normal throughout. Respiratory: No respiratory distress. Painless inspiration. Breath sounds normal. No wheezes/rales/rhonchi noted. Chest nontender. No accessory muscle usage noted or decreased air movement noted. Abdomen: Soft and nontender. Bowel sounds normal in all 4 quadrants. No distention noted. No organomegaly noted. No visible injury noted. Back: No CVA tenderness. Full range of motion noted. Skin: Skin warm and dry. Normal skin color. Normal skin turgor. No rashes/lesions/lacerations noted. Extremities: No lower extremity edema. Extremities exhibit normal range of motion. Extremities nontender. Neuro: Oriented X 3. Cranial nerve exam: II-XII are grossly intact No motor deficit. No sensory deficit. Reflexes normal. Course Course Course Narrative: This is an RME: Additional HPI, ROS, PE not included below will be deferred to primary provider. RME assessment and note performed by: Nasra Rivera PA-C This is a 84-year-old female, history of atrial fibrillation with pacemaker on aspirin, who presents emergency department with concerns for cough, generalized weakness, diarrhea x 4 days. No nausea, vomiting. No urinary symptoms. Plan: Labs, EKG, Viral swabs Reevaluation(s) Reevaluation #1: 84-year-old female came in with 4 days of diarrhea and feeling dehydrated. 1. Do not meet sepsis criteria. 2. Colitis with leukocytosis and bandemia, pending stool sample, pending C diff. received 1 dose of empiric Zosyn, IV fluids, IV steroids. 3. Admit for further GI evaluation. Time: 18:44 Medications Administered Discontinued Medications Generic Name Dose Route Start Last Admin Trade Name Freq PRN Reason Stop Dose Admin Sodium Chloride 1,455 mls @ 1,455 mls/hr 08/31/24 15:58 08/31/24 16:18 Ns 30 ml/kg infuse over 1 hr (1455 ml) 08/31/24 16:57 1,455 mls/hr IV Administration .Q1H STA Piperacillin Sod/Tazobactam 50 mls @ 100 mls/hr 08/31/24 15:58 08/31/24 17:39 Sod 3.375 gm/ Sodium Chloride IV 08/31/24 16:27 Infused ONCE ONE Infusion Iohexol 100 ml 08/31/24 17:07 08/31/24 17:07 Iohexol 350 Mg/Ml 100 Ml Infus..Btl IV 08/31/24 17:08 85 ml ONCE ONE Administration Medical Decision Making Differential Diagnosis Differential Diagnoses: The differential diagnosis associated with the presentation includes ( Acute colitis, diverticulitis, pancreatitis, appendicitis, gastroenteritis, dehydration, electrolyte derangement, severe anemia.) Admission/Observation Consideration of admission/observation: Escalation of care including admission/observation considered Consult Healthcare Provider Management of the patient was discussed with: Hospitalist ( Dr. Fields) Lab Data MDM Lab Attestation statement: I reviewed the patient's lab results. 08/31/24 13:21 08/31/24 13:21 Labs: Lab Results 08/31/24 08/31/24 Range/Units 13:21 16:33 WBC 20.3 H (4.8-10.8) X10*3/uL RBC 4.01 L D (4.20-5.50) X10*6/uL Hgb 10.7 L (12.0-16.0) g/dl Hct 32.5 L (37.0-47.0) % MCV 81.0 (80.0-98.0) fL MCH 26.7 L (27.0-33.0) pg MCHC 32.9 (31.0-35.0) g/dl RDW 18.6 H (11.0-16.0) % Plt Count 250 (160-400) X10*3/uL MPV 10.3 (9.4-12.3) fL Immature Gran % (Auto) Cancelled Neut % (Auto) Cancelled Lymph % (Auto) Cancelled [place] % (Auto) Cancelled Eos % (Auto) Cancelled Baso % (Auto) Cancelled Lymph # (Auto) Cancelled [place] # (Auto) Cancelled Eos # (Auto) Cancelled Baso # (Auto) Cancelled Abs Immat Gran (auto) Cancelled Absolute Neuts (auto) Cancelled Absolute Nucleated RBC 0.000 (0.0-0.012) X10*3/uL Nucleated RBC % (auto) 0.0 (0.0-0.2) /100WBC Neutrophils % (Manual) 82 H (45-73) % Band Neutrophils % 10 H (3-5) % Lymphocytes % (Manual) 4 L (20-40) % Monocytes % (Manual) 2 (2-11) % Eosinophils % (Manual) 1 (0-4) % Metamyelocytes % 1 % Abs Neuts (Manual) 18.7 H (2.0-8.3) X10*3/uL Lymphocytes # (Manual) 0.8 L (1.2-4.9) X10*3/uL Monocytes # (Manual) 0.4 (0.1-1.2) X10*3/uL Eosinophils # (Manual) 0.2 (0.0-0.4) X10*3/uL Metamyelocytes # 0.2 X10*3/uL Toxic Vacuolation PRESENT Dohle Bodies PRESENT Platelet Estimate NORMAL (NORMAL) Large Platelets PRESENT Plt Morphology Comment NOTED RBC Morphology NOTED Ovalocytes 1+ (5-14) /OIF Acanthocytes (Spur) 1+ (0-2) /OIF Sodium 138 (135-145) mmol/L Potassium 4.4 (3.3-5.1) mmol/L Chloride 107 (96-108) mmol/L Carbon Dioxide 21 L (22-29) mmol/L Anion Gap 14 (12-20) BUN 36 H (9-16) mg/dL Creatinine 1.07 (0.5-1.4) mg/dL Estim Creat Clear Calc 30.4 Estimated GFR 49 Random Glucose 90 (60-115) mg/dL Lactic Acid 1.5 (0.5-2.0) mmol/L Calcium 9.2 (8.4-10.2) mg/dL Magnesium 2.6 (1.6-2.6) mg/dL Total Bilirubin 0.5 (0.0-1.0) mg/dL Direct Bilirubin 0.2 (0.0-0.5) mg/dL AST 18 (5-31) U/L ALT 7 (0-31) U/L Alkaline Phosphatase 87 (39-117) U/L Troponin I High Sens 11.7 D (<3.5-17.0) ng/L Total Protein 7.0 (6.5-8.0) g/dL Albumin 3.6 (3.5-5.0) g/dL Lipase 16 (8-78) U/L Influenza Type A (PCR) NEGATIVE (Negative) Influenza Type B (PCR) NEGATIVE (Negative) RSV RNA Qual (PCR) NEGATIVE (Negative) SARS-CoV-2 RNA (RT-PCR) NEGATIVE (Negative) Independent Interpretation I performed an independent interpretation of an: CT Scan ( abdomen and pelvis:1. Findings suggestive of colitis involving the transverse and descending colon which could be inflammatory or infectious in etiology. 2. Bilateral nonobstructing renal stones and stones in bilateral renal pelvis. No hydronephrosis. 3. Mild dilatation of the common bile duct wi) Radiology Impression Discussion of test interpretation with radiology: I have reviewed the radiologist's reading. Discharge Plan Discharge Clinical Impression: Colitis, Leukocytosis Patient Disposition: Admitted As Inpatient Print Language: Ukrainian
--- NOTE | 2024-08-31 13:06 | ECG_ITS ---
Test Reason : CHEST PAIN Blood Pressure : */* mmHG Vent. Rate : 70 BPM Atrial Rate : 72 BPM P-R Int : * ms QRS Dur : 142 ms QT Int : 428 ms P-R-T Axes : * -52 68 degrees QTcB Int : 462 ms Ventricular-paced rhythm underlying atrial flutter Abnormal ECG When compared with ECG of 21-Oct-2023 21:52, Electronic ventricular pacemaker has replaced Sinus rhythm Referred By: Nasra Rivera Electronically Signed By: NADIA ABDI
[2024-08-31 13:31] LABS: Hematocrit 32.5 % (37.0-47.0); Hemoglobin 10.7 g/dl (12.0-16.0); Mean Corpuscular HGB Conc 32.9 g/dl (31.0-35.0); Mean Corpuscular Hemoglobin 26.7 pg (27.0-33.0); Mean Platelet Volume 10.3 fL (9.4-12.3); Platelet Count 250 X10*3/uL (160-400); Red Blood Count 4.01 X10*6/uL (4.20-5.50); Red Cell Distribution Width 18.6 % (11.0-16.0); White Blood Count 20.3 X10*3/uL (4.8-10.8)
[2024-08-31 13:48] LABS: Alanine Aminotransferase 7 U/L (0-31); Albumin Level 3.6 g/dL (3.5-5.0); Alkaline Phosphatase 87 U/L (39-117); Anion Gap 14 (12-20); Aspartate Amino Transferase 18 U/L (5-31); Bilirubin Direct 0.2 mg/dL (0.0-0.5); Bilirubin Total 0.5 mg/dL (0.0-1.0); Blood Urea Nitrogen 36 mg/dL (9-16); Calcium 9.2 mg/dL (8.4-10.2); Carbon Dioxide 21 mmol/L (22-29); Chloride 107 mmol/L (96-108); Creatinine Clr Calc Pharmacy 30.4; Estimated Glomerular Filt Rate 49; Glucose Random 90 mg/dL (60-115); Lipase 16 U/L (8-78); Magnesium 2.6 mg/dL (1.6-2.6); Potassium 4.4 mmol/L (3.3-5.1); Sodium 138 mmol/L (135-145)
[2024-08-31 13:55] LABS: Troponin-I High Sensitivity 11.7 ng/L (<3.5-17.0)
[2024-08-31 14:06] LABS: Neutrophils Percent Manual 82 % (45-73)
[2024-08-31 14:07] LABS: Influenza A PCR NEGATIVE (Negative); Influenza B PCR NEGATIVE (Negative); Resp Syncy Virus RNA Qual PCR NEGATIVE (Negative); SARS COV2 PCR INHOUSE NEGATIVE (Negative)
[2024-08-31 14:10] LABS: Acanthocytes 1+ (0-2) /OIF; Band Neutrophils Percent 10 % (3-5); Dohle Bodies PRESENT; Eosinophils Absolute Manual 0.2 X10*3/uL (0.0-0.4); Eosinophils Percent Manual 1 % (0-4); Large Platelet PRESENT; Lymphocytes Absolute Manual 0.8 X10*3/uL (1.2-4.9); Lymphocytes Percent Manual 4 % (20-40); Metamyelocytes Absolute 0.2 X10*3/uL; Metamyelocytes Percent 1 %; Monocytes Absolute Manual 0.4 X10*3/uL (0.1-1.2); Monocytes Percent Manual 2 % (2-11); Neutrophils Absolute Manual 18.7 X10*3/uL (2.0-8.3); Ovalocytes 1+ (5-14) /OIF; Platelet Estimate NORMAL (NORMAL); Platelet Morphology Comment NOTED; RBC Morphology NOTED; Toxic Vacuolation PRESENT
--- NOTE | 2024-08-31 15:45 | PC.NURSE ---
pt is alert and oriented, skin pwd, respirations even and unlabored, pt reports having diarrhea x3 day no blood in the stool per pt and denies seeing blood in the stool and left lower abd pain but reports that has resolved-now just feeling generally weak and states she constantly feeling thirsty, bowel sounds in all 4 quadrants, soft and non-tender,
[2024-08-31] MEDS: SODIUM CHLORIDE 1455 ML IV (16:18)
[2024-08-31] MEDS: Piperacillin Sodium/Tazobactam 3.375 GM in 0.9 % Sodium Chloride 50 ML IV ×2 (16:34→23:12)
[2024-08-31 16:59] LABS: Lactic Acid 1.5 mmol/L (0.5-2.0)
[2024-08-31] MEDS: iohexoL 350 MG/ML 100 ML INFUS..BTL IV (17:07)
--- OUTSIDE RECORDS SUMMARY | 2024-08-31 18:31 | XMS_ITS ---
Author Organization [facility] Address [address] [place] [address] Care Team Providers Care Radio Journalist Name Role Phone Tati SHAY, Bridgette Primary Care Provider Jennifer eDnise Unavailable [phone] Allergies Allergen (clinical drug ingredient) Drug/Non Drug Allergy documented on EMR Reaction Allergy Type Onset Date Status amoxicillin / clavulanate Augmentin nausea Drug Allergy Active REASON FOR VISIT Wart(s) Medications Medication SIG (Take, Route, Frequency, Duration) Notes Start Date End Date Status Spiriva HandiHaler 18 MCG 1 capsule Inha lation Once a day Active Digoxin 240 1 tablet Orally Once a day for 30 day(s) Not-Taking Cardizem 360 MG 1 tablet before meal s Orally Three times a day for 30 day(s) Not-Taking vitamin as directed Not-Taki ng Physical Therapy 3-4x per week for 3- 4 weeks Not-Taking Custom Orthotics as directed 06/08/2019 Not-Taking Breo Ellipta Not-Ciro ing Advair Diskus 100-50 MCG/DOSE 1 puff Inhalation every 12 hrs Not-Taking Amiodarone HCl Not-T aking Anastrozole Not-Taki ng Plavix Not-Taking Singulair 10 MG 1 tablet in the even ing Orally Once a day for 30 day(s) Not-Taking Eliquis 5 MG as directed Orally Not-Taking Magnesium Not-Taking Social History Tobacco Use: Social History Observation Description Date Details (start date - stop date) Former Smoker NA - NA Tobacco Use/Smoking Question Answer Notes Are you a: former smoker Additional Findings: Tobacco Non-User Current no n-smoker Alcohol Screen Question Answer Notes Did you have a drink containing alcohol in the p ast year? No Points 0 Interpretation Negative Tobacco use other than smoking: Question Answer Notes Are you an other tobacco user? No Vital Signs Height 5 ft 5in in 05/01/2024 Weight 117 lbs 05/01/2024 BMI 19.47 kg/m2 05/01/2024 Procedures Procedure Date Ordered Date Performed Result Body Sit e 19119-Jhty Destruction, 1-14 05/01/2024 N/A Encounters Encounter Location Date Provider Diagnosis [facility] [address] [address] 05/01/2024 Jennifer Pagan Plantar wart B07.0 and Left foot pain M79.672 Assessments Encounter Date Diagnosis (ICD Code) Assessment Notes Treatment Notes Treatment Clinical Notes Section Notes 05/01/2024 Plantar wart (ICD-10 - B07.0) 05/01/2024 Left foot pain (ICD-10 - M79.672) Plan Of Treatment Pending Test Test Name Order Date 21828-[id number] Destruction, 1-14 05/01/2024 Next Appt Details Follow Up: prn, Reason: Provider Name:Jennifer Pagan , 09/11/2024 02:15:00 PM, [address] [place] [address], [phone], Provider Name:Jennifer Pagan , 11/16/2024 01:30:00 PM, [address] [place] [address], [phone], Procedure Notes * Category Sub-Category Detail Notes Wart Treatment Procedure Verrucae were de brided to pin-point bleeding margins with sterile 15 surgical blade, silver nitrate chemocautery applied, recomm. immune-boosting meds such as zinc, recomm. follow up with topical chemosurgical agents, Pt STILL, defers any other forms of tx - 32155 Progress Notes * Jose Luis ECHEVARRIA EDOB: [birth year] (84 yo F)Acc No.[id number]:05/01/2024 Progress Notes Patient:?Jose Luis ECHEVARRIA Provider:?Jennifer Pagan DPM :1940???Age:84 Y???Sex:Female D ate:05/01/2024 Address:[address] [place] [address] , [facility] [place], [id number] Pcp:Bridgette Duffy MD Subjective: * Chief Complaints: * ???Wart(s) * HPI: ???Skin problems:?Pt States PCP Visit: ?DATE?04/14/2024 * Medical History:? * Surgical History:?bunionecto my hysterectomy wrist surgery left wrist surgery oth eyes cataract surgery 2015endoscopy 10/14/2015ablation or a fib 08/2015Squamous cell 07/26/23cardiac pacemeker 03/03/24 * Hospitalization/Major Diagno stic Procedure:?[facility] - Covid-19 [place] 10/2022[facility]- Fall- tendonitis 10/22/23 * Family History:?Mother: dece ased, diagnosed with Unspecified essential hypertension, Unspecified heart disease, Family history of arthritis.?Father: , foot problems.? 2 adopted children. * Social History:?Tobacco Use:?Tobacco Use/Smoking?Are you a:?former smoker ?Additional Findings: Tobacco Non-User?Current non-smoker ?Tobacco use other than smoking?Are you an other tobacco user??No ???Drugs/Alcohol:?Drugs?Have you used drugs other than those for medical reasons in the past 12 months??No ?Alcohol Screen?Did you have a drink containing alcohol in the past year??No ?Points?0 ?Interpretation?Negative ???Miscellaneous:?Caffeine: yes, decaff everything, 1-2 cups per day. ?Children: yes. ?Exercise: yes, walking, [employer] class 3 times per week. ?Marital status: . 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 * Medications:?TakingSpiriva H andiHaler 18 MCG Capsule 1 capsule Inhalation Once a day Taking Spiriva HandiHaler 18 MCG Capsule 1 capsule Inhalation Once a day Not-Taking/PRNCardizem 360 MG Tablet 1 tablet before meals Orally Three times a day Plavix Singulair 10 MG Tablet 1 tablet in the evening Orally Once a day Eliquis 5 MG Tablet as directed Orally Magnesium Custom Orthotics as directed Breo Ellipta Advair Diskus 100-50 MCG/DOSE Aerosol Powder Breath Activated 1 puff Inhalation every 12 hrs Amiodarone HCl Anastrozole Digoxin 240 Tablet 1 tablet Orally Once a day vitamin as directed Physical Therapy 3-4x per week for 3-4 weeks Medication List reviewed and reconciled with the patientNot-Taking/PRN Cardizem 360 MG Tablet 1 tablet before meals Orally Three times a day Not-Taking/PRN Plavix Not-Taking/PRN Singulair 10 MG Tablet 1 tablet in the evening Orally Once a day Not-Taking/PRN Eliquis 5 MG Tablet as directed Orally Not-Taking/PRN Magnesium Not-Taking/PRN Custom Orthotics as directed Not-Taking/PRN Breo Ellipta Not-Taking/PRN Advair Diskus 100-50 MCG/DOSE Aerosol Powder Breath Activated 1 puff Inhalation every 12 hrs Not-Taking/PRN Amiodarone HCl Not-Taking/PRN Anastrozole Not-Taking/PRN Digoxin 240 Tablet 1 tablet Orally Once a day Not-Taking/PRN vitamin as directed Not-Taking/PRN Physical Therapy 3-4x per week for 3-4 weeks Medication List reviewed and reconciled with the patient * Allergies:?Augmentin: nausea - Allergyyes[Allergies Verified] Objective: * Vitals:?Ht: 5 ft 5in, Wt: 11 7, BMI: 19.47, Shoe size: 9.5, Ht-cm: 165.1 cm, Wt- k.07 kg. * Examination: ???Dermatologic: ?VERRUCA:?, Reveals a Single , multi-loculated , mosaic-patterned, round, raised, flat-topped, petechial bleeding papule(s), with cauliflower appearance and interruption of skin lines, pain to lateral compression, and size estimated at 5mm diameter , plantar Forefoot , LEFT.? Assessment: * Assessment: 1.?Plantar wart - B07.0 (Iris jose luis)???2.?Left foot pain - M79.672??? Plan: * Treatment: * Procedures:?Wart Treatment:?Procedure?Verrucae were debrided to pin-point bleeding margins with sterile 15 surgical blade, silver nitrate chemocautery applied, recomm. immune-boosting meds such as zinc, recomm. follow up with topical chemosurgical agents, Pt STILL, defers any other forms of tx - 46747.? * Procedure Codes:?47391 Wart Destruction, 1-14 * Follow Up:?prn * * Sign off status: Completed true * Provider:?Jennifer Pagan DPM Date:?2023 Generated for Arianna obo/Stalin/eTransmitting on:?08/31/2024 06:31 PM EDT History and Physical Notes * HPI (History of Present Illness) Category Sub-Category Detail Notes Category Not es Skin problems Pt States PCP Visit: DATE: 04/14/2024 Examination Category Sub-Category Detail Notes Category Not es Dermatologic VERRUCA: , Reveals a Sing le , multi-loculated , mosaic-patterned, round, raised, flat-topped, petechial bleeding papule(s), with cauliflower appearance and interruption of skin lines, pain to lateral compression, and size estimated at 5mm diameter , plantar Forefoot , LEFT
--- OUTSIDE RECORDS SUMMARY | 2024-08-31 18:31 | XMS_ITS ---
Author Organization [facility] Address [address] [facility] [place] [address] Care Team Providers Care Technical Photographer Name Role Phone Bridgette Duffy MD Primary Care Provider Unavaila Jennifer Rose Unavailable [phone] Allergies Allergen (clinical drug ingredient) Drug/Non Drug Allergy documented on EMR Reaction Allergy Type Onset Date Status amoxicillin / clavulanate Augmentin nausea Drug Allergy Active REASON FOR VISIT Wart(s), Painful Nail(s) aggrevated by shoes and causing difficulty standing/walking. Medications Medication SIG (Take, Route, Frequency, Duration) Notes Start Date End Date Status Anastrozole Not-Taki ng vitamin as directed Not-Taki ng Spiriva HandiHaler 18 MCG 1 capsule Inha lation Once a day Active Digoxin 240 1 tablet Orally Once a day for 30 day(s) Not-Taking Physical Therapy 3-4x per week for 3- 4 weeks Not-Taking Magnesium Not-Taking Breo Ellipta Not-Cior ing [employer] as directed 06/08/2019 Not-Taking Amiodarone HCl Not-T aking Advair Diskus 100-50 MCG/DOSE 1 puff Inhalation every 12 hrs Not-Taking Eliquis 5 MG as directed Orally Not-Taking Cardizem 360 MG 1 tablet before meal s Orally Three times a day for 30 day(s) Not-Taking Singulair 10 MG 1 tablet in the even ing Orally Once a day for 30 day(s) Not-Taking Plavix Not-Taking Social History Tobacco Use: Social History Observation Description Date Details (start date - stop date) Former Smoker NA - NA Tobacco Use/Smoking Question Answer Notes Are you a: former smoker Additional Findings: Tobacco Non-User Current no n-smoker Tobacco use other than smoking: Question Answer Notes Are you an other tobacco user? No Vital Signs Height 5 ft 5in in 06/26/2024 Weight 120 lbs 06/26/2024 BMI 19.97 kg/m2 06/26/2024 Blood pressure systolic 117 mm Hg 06/26/19 25 Blood pressure diastolic 80 mm Hg 025 Procedures Procedure Date Ordered Date Performed Result Body Sit e 54650-BYRZSBN NAIL, 6 OR MORE 06/26/2024 N/A 39781-Kziy Destruction, 1-14 06/26/2024 N/A Encounters Encounter Location Date Provider Diagnosis [facility] [address] [address] 06/26/2024 Jennifer Black Pain in left toe(s) M79.675 ; Pain in right toe(s) M79.674 ; Tinea unguium B35.1 ; Left foot pain M79.672 and Plantar wart B07.0 Assessments Encounter Date Diagnosis (ICD Code) Assessment Notes Treatment Notes Treatment Clinical Notes Section Notes 06/26/2024 Pain in left toe(s) (ICD-10 - M79.675) 06/26/2024 Pain in right toe(s) (ICD-10 - M79.674) 06/26/2024 Tinea unguium (ICD-10 - B35.1) 06/26/2024 Left foot pain (ICD-10 - M79.672) 06/26/2024 Plantar wart (ICD-10 - B07.0) Plan Of Treatment Pending Test Test Name Order Date [id number] NAIL, 6 OR MORE 06/26/2024 03075-Xzgq Destruction, 1-14 06/26/2024 Next Appt Details Follow Up: prn, Reason: Provider Name:Jennifer Pagan , 09/11/2024 02:15:00 PM, [address] [place] [address], [phone], Provider Name:Jennifer Pagan , 11/16/2024 01:30:00 PM, [address] [place] [address], [phone], Procedure Notes * Category Sub-Category Detail Notes Wart Treatment Procedure Verrucae were de brided to pin-point bleeding margins with sterile 15 surgical blade, silver nitrate chemocautery applied, recomm. immune-boosting meds such as zinc, recomm. follow up with topical chemosurgical agents, Pt STILL, defers any other forms of tx (79210) Debride Nail 6-10 Nail debridement Due to the cl inical pathology outlined in the exam findings, performance of this nail treatment is medically necessary as its management by an unskilled/untrained nonprofessional would put this patients foot and overall health at risk. Therefore, debridement to affected nail(s), as described in exam ( TA, T1, T2, T3, T4, T5, T6, T7, T8, T9, ), was performed exclusively by the physician of record to reduce/remove overall nail length, girth, thickness, subungual debris, and necrotic tissue, by manual and/or electrical means through the use of a nail nipper and/or dremel-type crystal grinder, to a more viable healthy nail plate or bed tissue 6-10 nails in total. Silver nitrate was used for any petechial bleeding as necessary. Definitive antifungal treatment options, both pharmaceutical and surgical, have been reviewed and discussed with the patient. The patient solely prefers the use of intermittent/as needed professional debridement services for their nail condition and understands the need for additional periodic treatments to maintain effectiveness in symptomatic relief - 01629 Progress Notes * Ernestina ECHEVARRIA EDOB: [birth year] (84 yo F)Acc No.[id number]:06/26/2024 Progress Notes Patient:?Ernestina ECHEVARRIA Provider:?Jennifer Pagan DPM :1940???Age:84 Y???Sex:Female D ate:06/26/2024 Address:[address] [place] [id number] Pcp:Bridgette Duffy MD Subjective: * Chief Complaints: * ???Wart(s)Painful Nail(s) ag grevated by shoes and causing difficulty standing/walking. * HPI: ???Skin problems:?Pt States PCP Visit: ?DATE?03/10/2024 ???Painful Nails:?Pt States Last PCP Visit:?Date:?03/10/2024 * ROS:?General/Constitutional:?Nausea?denies.?Vomiting?denies.?Hunger Thirst?denies.?Loss appetite?denies.?Chills?denies.?Fatigue?denies.?Fever?denies.?Night Sweats?denies.?Unexplained weight loss?denies.?Unexplained weight gain?denies.?HEENTM:?Dentures?denies.?Dizziness?denies.?Glasses/contacts?admits.?Retinopathy?de nies.?Blurred/double vision?denies.?TMJ?denies.?Discharge/drainage?denies.?Implants?denies.?Sore throat?denies.?Dental implants?denies.?Hard of hearing ?denies.?Difficulty chewing/swallowing/speaking?denies.?Nose bleeds?denies.?Sore mouth?denies.?Respiratory:?On Oxygen?denies.?Pneumonia/pleurisy?denies.?Bronchitis?denies.?Emphysema?denies.?C oughing?admits.?Cough blood?denies.?Shortness of breath?denies.?Wheezing?denies.?Cardiovascular:?Pacemaker?denies.?MVP?denies.?WPW?denies.?CHF?denies.?Heart attack?denies.?Septal defect?denies.?Rapid beat?denies.?Chest pain ?denies.?Atrial Fib.?denies.?Murmur/Palpitations?denies.?Gastrointestinal:?Hemorrhoids?denies.?Stomach/Abdominal pain?denies.?Dark blood stool?denies.?Irritable bowel ?denies.?Constipation?denies.?Diarrhea?denies.?Hematology:?Swelling?admits.?Clots?denies.?Varicose Veins?denies.?Bruising?denies.?Bleeding problem?denies.?Genitourinary:?Blood urine?denies.?Frequent/Painfu/urination/bladder control?denies.?Kidney stones?denies.?Infection (UTI)?denies.?Nephropathy?denies.?sex trans dis (STD)?denies.?Prostate?denies.?Musculoskeletal:?Hammertoes?admits.?Bunions?admits.?Back Pain?denies.?Muscle Cramps/ Resting?denies.?Muscle cramps / walking?denies.?Generalized aches and pains?denies.?Weakness?denies.?Integ.:?Carlson?denies.?Scars?denies.?Corns/calluses?denies.?Ingrown nails?denies.?Painful nails?denies.?Open Sores?denies.?Rashes?denies.?Neurologic:?Difficulty sleeping?denies.?Brain disorder?denies.?Numbness?admits.?Balance trouble?denies.?Confusion?denies.?Fainting/blackouts?denies.?Tingling?denies.?Tr emors?denies.? * Medical History:? * Surgical History:?bunionecto my [...] than smoking?Are you an other tobacco user??No * Medications:?TakingSpiriva H andiHaler 18 MCG Capsule [...] Objective: * Vitals:?Ht: 5 ft 5in, Wt: 12 0, BMI: 19.97, Shoe size: 9.5, BP: 117/80 mm Hg, Ht- cm: 165.1 cm, Wt-k.43 kg. * Examination: ???General Examination: ?GENERAL APPEARANCE:?Reveals a pleasant, alert, well nourished, well- developed, well hydrated individual, who demonstrates proper attention to hygiene/body habitus, and is in no acute distress, Pt serves as own historian for office visit today.?ORIENTED:?person, place, and time.?Dermatologic: ?VERRUCA:?, Reveals a Single , multi-loculated , mosaic-patterned, round, raised, flat-topped, petechial bleeding papule(s), with cauliflower appearance and interruption of skin lines, pain to lateral compression, and size estimated at 4mm diameter , plantar Forefoot , LEFT.?Nails: ?NAILS are:?elongated,overgrown,dystrophic,greater the T5, T6, T7, T8, T9, TA, T1, T2, T3,?.? Assessment: * Assessment: 1.?Pain in left toe(s) - M79 .675???2.?Pain in right toe(s) - M79.674???3.?Tinea unguium - B35.1???4.?Left foot pain - M79.672???5.?Plantar wart - B07.0 (Primary)??? Plan: * Treatment: 2.?Tinea unguium?Procedure: [id number]-[id number] NAIL, 6 OR MORE * Procedures:?Debride Nail 6-10:?Nail debridement?Due to the clinical pathology outlined in the exam findings, performance of this nail treatment is medically necessary as its management by an unskilled/untrained nonprofessional would put this patients foot and overall health at risk. Therefore, debridement to affected nail(s), as described in exam ( TA, T1, T2, T3, T4, T5, T6, T7, T8, T9, ), was performed exclusively by the physician of record to reduce/remove overall nail length, girth, thickness, subungual debris, and necrotic tissue, by manual and/or electrical means through the use of a nail nipper and/or dremel-type crystal grinder, to a more viable healthy nail plate or bed tissue 6- 10 nails in total. Silver nitrate was used for any petechial bleeding as necessary. Definitive antifungal treatment options, both pharmaceutical and surgical, have been reviewed and discussed with the patient. The patient solely prefers the use of intermittent/as needed professional debridement services for their nail condition and understands the need for additional periodic treatments to maintain effectiveness in symptomatic relief - 87544.?Wart Treatment:?Procedure?Verrucae were debrided to pin-point bleeding margins with sterile 15 surgical blade, silver nitrate chemocautery applied, recomm. immune-boosting meds such as zinc, recomm. follow up with topical chemosurgical agents, Pt STILL, defers any other forms of tx (27557).? * Procedure Codes:?82387 Wart Destruction, [id number] DEBRIDE NAIL, 6 OR MORE, Modifiers: XS * Preventive Medicine:? ??Screening/Special Tests:?Fall Risk?Screening:?No falls in the past year ?FALLS: Screening for Future Fall Risk?Have you had any falls with injury in the past year??No * Follow Up:?prn * Images: * Sign off status: Completed true * Provider:?Jennifer Pagan DPM Date:?2024 Generated for Arianna boo/Stalin/eTpurasmitting on:?08/31/2024 06:31 PM EDT History and Physical Notes * HPI (History of Present Illness) Category Sub-Category Detail Notes Category Not es Painful Nails Pt States Last PCP Visit: Date:: 03/10/2024 Skin problems Pt States PCP Visit: DATE: 03/10/2024 Examination Category Sub-Category Detail Notes Category Not es Dermatologic VERRUCA: , Reveals a Sing le , multi-loculated , mosaic-patterned, round, raised, flat-topped, petechial bleeding papule(s), with cauliflower appearance and interruption of skin lines, pain to lateral compression, and size estimated at 4mm diameter , plantar Forefoot , LEFT General Examination GENERAL APPEARANCE: Reveals a pleasant, alert, well nourished, well-developed, well hydrated individual, who demonstrates proper attention to hygiene/body habitus, and is in no acute distress, Pt serves as own historian for office visit today ORIENTED: person, place, and t dany Nails NAILS are: elongated,overgr own,dystrophic,greater the T5, T6, T7, T8, T9, TA, T1, T2, T3,
--- OUTSIDE RECORDS SUMMARY | 2024-08-31 18:32 | XMS_ITS | Patient Health Record ---
Author Organization [facility] Address [address] [place] [address] Care Team Providers Care Hydrography Teacher Name Role Phone TARA BLUE Unavailable ALLERGIES Allergen (clinical drug ingredient) Drug/Non Drug Allergy documented on EMR Reaction Allergy Type Onset Date Status amoxicillin / clavulanate Augmentin Unknown Drug Allergy Active REASON FOR REFERRAL No Information MEDICATIONS Medication SIG (Take, Route, Frequency, Duration) Notes Start Date End Date Status Advair HFA Active Spiriva HandiHaler A ctive Vitamin D Active Cardizem Active Xarelto Active Singulair Active Paxlovid (300/100) 20 x 150 MG & 10 x 100MG 3 tab Orally every 12hrs for 5 days 06/15/2023 Active Protonix Active Propafenone HCl Acti ve PROBLEMS Problem Type ICD Code Onset Dates Problem Status W/U Status Risk SNOMED Code Notes Problem Mild intermittent asthma with (acute) exacerbation (J45.21) Active confirmed Exacerbation of intermittent asthma ([id number]) PLAN OF TREATMENT Pending Test Test Name Order Date INJ Roceph (1 gram) 11/19/2015 Insurance Providers Payer Name Payer Address Payer Phone Subscriber Number Group Number Insured Name Patient Relationship to Insured Coverage Start Date Coverage End Date [employer] of [place] [address] [place] [address] [id number] Ernestina Fang Self - patient is the insured [employer] of [address] [id number] AnnalisaErnestina Self - patient is the insured MEDICATIONS ADMINISTERED Medication Instructions Date of Administration Dosage Notes Ceftriaxone 1G 11/19/2015 1 g pt held po st injection and tolerated well MEDICAL (GENERAL) HISTORY Medical History History ICD Code Atrial fibrillation acid reflux asthma left sided breast cancer 2013 covid =paxlovid May 2023 Surgical History Surgery Date(Month/Year) left sided breast cancer 2013 (lumpectom y and radiation) left wrist fx 2012 hysterectomy hernia repair Hospitalization History Reason Date(Month/Year) pneumonia 2013 AFIB 2016
--- OUTSIDE RECORDS SUMMARY | 2024-08-31 18:32 | XMS_ITS | Patient Health Record ---
Author Organization [facility] [place] Address [address] [place] [address] Care Team Providers Care Analytical Data Scientist Name Role Phone Bridgette Duffy MD Primary Care Provider Unavaila Anthony Rosemie Unavailable [phone] Allergies Allergen (clinical drug ingredient) Drug/Non Drug Allergy documented on EMR Reaction Allergy Type Onset Date Status amoxicillin / clavulanate Augmentin nausea Drug Allergy Active Reason For Referral No Information Medications Medication SIG (Take, Route, Frequency, Duration) Notes Start Date End Date Status Anastrozole Not-Taki ng Cardizem 360 MG 1 tablet before meal s Orally Three times a day for 30 day(s) Not-Taking vitamin as directed Not-Taki ng Spiriva HandiHaler 18 MCG 1 capsule Inha lation Once a day Active Digoxin 240 1 tablet Orally Once a day for 30 day(s) Not-Taking Singulair 10 MG 1 tablet in the even ing Orally Once a day for 30 day(s) Not-Taking Plavix Not-Taking Physical Therapy 3-4x per week for 3- 4 weeks Not-Taking Magnesium Not-Taking Eliquis 5 MG as directed Orally Not-Taking Breo Ellipta Not-Ciro ing [employer] as directed 06/08/2019 Not-Taking Amiodarone HCl Not-T aking Advair Diskus 100-50 MCG/DOSE 1 puff Inhalation every 12 hrs Not-Taking Immunizations Vaccine Route Administration Date Status Comme nts COVID-19 Pfizer BioNTech Vaccine Unknown 04/24/2021 Administered First Dose: 07/22/20 Second Dose:08/19/20 Social History Tobacco Use: Social History Observation [...] Are you an other tobacco user? No Problems Problem Type SNOMED Code ICD Code Onset Dates Problem Status W/U Status Risk Notes Problem Acquired hallux valgus (40832517) Hallux valgus (acquired), left foot (M20.12) Active confirmed Problem Plantar wart (28842787) Plantar wart (B07.0) Active confirmed Problem Acquired hallux valgus (22295306) Hallux valgus (acquired), right foot (M20.11) Active confirmed Problem 78866496 Age-related osteoporosis without current pathological fracture (M81.0) Active confirmed Problem Acquired hammer toe of right foot (70963184561831 05) Other hammer toe(s) (acquired), right foot (M20.41) Active confirmed Problem Acquired hammer toe of left foot (81084807615975 03) Other hammer toe(s) (acquired), left foot (M20.42) Active confirmed Problem 599288918 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) Active confirmed Problem Acquired deformity of right foot (13341589705922 100) PlantarFlexion of metatarsal of right foot (M21.6X1) Active confirmed Problem Joint contracture of the ankle and/or foot (810824156) 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) Active confirmed Vital Signs Blood pressure diastolic 80 mm Hg 06/26/2024 Height 5 ft 5in in 06/26/2024 Blood pressure systolic 117 mm Hg 06/26/2024 Weight 120 lbs 06/26/2024 BMI 19.97 kg/m2 06/26/2024 Procedures Procedure Date Ordered Date Performed Result Body Sit e 82961-RTUNWMW NAIL, 6 OR MORE 10/28/2023 N/A 69265-Wrvq Destruction, 1-10/28/2023 N/A 70091-EAKHYMU NAIL, 6 OR MORE 12/09/2023 N/A 04921-YUWGRGH NAIL, 6 OR MORE 02/07/2024 N/A 45841-Ccof Destruction, 1-02/07/2024 N/A 87301-Frih Destruction, 1-14 03/13/2024 N/A 19883-Zoeo Destruction, -14 05/01/2024 N/A 17172-QKTMUVM NAIL, 6 OR MORE 06/26/2024 N/A 15432-Gsnz Destruction, 1-14 06/26/2024 N/A Encounters Encounter Location Date Provider Diagnosis [address] [address] 10/28/2023 Jennifer Black Other viral warts B07.8 ; Unsteady gait R26.81 ; Pain in left toe(s) M79.675 ; Pain in right toe(s) M79.674 ; Tinea unguium B35.1 and History of recent fall Z91.[address] [address] 12/09/2023 Jennifer Black Pain in left toe(s) M79.675 ; Pain in right toe(s) M79.674 and Tinea unguium B35.[address] [address] 02/07/2024 Jennifer Black Pain in left toe(s) M79.675 ; Pain in right toe(s) M79.674 ; Tinea unguium B35.1 ; Left foot pain M79.672 and Plantar wart B07.[address] [address] 03/13/2024 Jennifer Black Plantar wart B07.0 and Left foot pain M79.[address] [address] 05/01/2024 Jennifer Black Plantar wart B07.0 and Left foot pain M79.[address] [address] 06/26/2024 Jennifer Black Pain in left toe(s) M79.675 ; Pain in right toe(s) M79.674 ; Tinea unguium B35.1 ; Left foot pain M79.672 and Plantar wart B07.0 Assessments Encounter Date Diagnosis (ICD Code) Assessment Notes Treatment Notes Treatment Clinical Notes Section Notes 10/28/2023 Other viral warts (ICD-10 - B07.8) 10/28/2023 Unsteady gait (ICD-10 - R26.81) 12/09/2023 Pain in right toe(s) (ICD-10 - M79.674) 12/09/2023 Pain in left toe(s) (ICD-10 - M79.675) 02/07/2024 Pain in left toe(s) (ICD-10 - M79.675) 03/13/2024 Plantar wart (ICD-10 - B07.0) 03/13/2024 Left foot pain (ICD-10 - M79.672) 05/01/2024 Plantar wart (ICD-10 - B07.0) 06/26/2024 Pain in left toe(s) (ICD-10 - M79.675) 02/07/2024 Pain in right toe(s) (ICD-10 - M79.674) 06/26/2024 Pain in right toe(s) (ICD-10 - M79.674) 05/01/2024 Left foot pain (ICD-10 - M79.672) 10/28/2023 Pain in left toe(s) (ICD-10 - M79.675) 12/09/2023 Tinea unguium (ICD-10 - B35.1) 10/28/2023 Pain in right toe(s) (ICD-10 - M79.674) 06/26/2024 Tinea unguium (ICD-10 - B35.1) 02/07/2024 Tinea unguium (ICD-10 - B35.1) 10/28/2023 Tinea unguium (ICD-10 - B35.1) 06/26/2024 Left foot pain (ICD-10 - M79.672) 02/07/2024 Left foot pain (ICD-10 - M79.672) 06/26/2024 Plantar wart (ICD-10 - B07.0) 10/28/2023 History of recent fall (ICD-10 - Z91.81) 02/07/2024 Plantar wart (ICD-10 - B07.0) Plan Of Treatment Pending Test Test Name Order Date X ray : Foot, left 3V 01/25/2012 11467-NPDCWNE NAIL, 6 OR MORE 02/23/2012 60112-WICKTAG NAIL, 6 OR MORE 03/21/2012 64041-EZIYAMV NAIL, 6 OR MORE 05/19/2012 03351-PZSDQCX NAIL, 6 OR MORE 06/23/2012 15413-NGXAZQF NAIL, 6 OR MORE 05/08/2013 43843-WZCWGWX NAIL, 6 OR MORE 08/14/2013 01189-COMVWSG NAIL, 6 OR MORE 02/10/2013 76661-VJDMVKO NAIL, 6 OR MORE 07/03/2016 63697-JVQNGAO NAIL, 6 OR MORE 09/10/2016 57104-BWEAXEC NAIL, 6 OR MORE 12/07/2016 09792-NMLOQDL NAIL, 6 OR MORE 02/12/2017 46182-DGLJWWN NAIL, 6 OR MORE 07/29/2017 02775-YJUFMMH NAIL, 6 OR MORE 05/11/2017 81678-CYWTAJV NAIL, 6 OR MORE 12/09/2017 07287-LXAHAOB NAIL, 6 OR MORE 02/17/2018 42624-ECPFFWW NAIL, 6 OR MORE 04/27/2018 95399-WXYICXT NAIL, 6 OR MORE 07/04/2018 62687-DAJOFWI NAIL, 6 OR MORE 10/03/2018 89276-XTZVEEC NAIL, 6 OR MORE 01/02/2019 05446-CFLZGNA NAIL, 6 OR MORE 04/12/2019 54556-CTCNJJN NAIL, 6 OR MORE 07/26/2019 46498-EFFFSSQ NAIL, 6 OR MORE 10/26/2019 86830-GNFQRUS NAIL, 6 OR MORE 12/18/2019 40434-YJRXCZP NAIL, 6 OR MORE 02/15/2020 64980-NAQEEXU NAIL, 6 OR MORE 06/24/2020 55614-HKKHZUF NAIL, 6 OR MORE 09/30/2020 37421-ATXOAUR NAIL, 6 OR MORE 12/30/2020 73939-QOLAYRP NAIL, 6 OR MORE 04/07/2021 35441-NIEFZST NAIL, 6 OR MORE 08/20/2021 06594-DUXJJXE NAIL, 6 OR MORE 02/19/2022 67938-YRWXUJI NAIL, 6 OR MORE 05/21/2022 51252-JXZJYVO NAIL, 6 OR MORE 09/07/2022 44655-DVFTFPO NAIL, 6 OR MORE 02/18/2023 30624-HJMWLXN NAIL, 6 OR MORE 05/06/2023 71688-YBTJICD NAIL, 6 OR MORE 07/29/2023 20179-JHUWIFJ NAIL, 6 OR MORE 02/07/2024 85642-EJZCVEY NAIL, 6 OR MORE 10/28/2023 00781-QSVQRFB NAIL, 6 OR MORE 12/09/2023 77595-KVIOWQW NAIL, 6 OR MORE 06/26/2024 28189-Xtra Destruction, -14 02/07/2024 93555-Whyx Destruction, -14 03/13/2024 47483-Buvl Destruction, -14 05/01/2024 24689-Mohd Destruction, -14 06/26/2024 28477-Wcav Destruction, -10/28/2023 30273-Rcjz Destruction, -07/29/2023 43937-Mpaw Destruction, -14 05/21/2022 70982-Jxzg Destruction, -14 05/06/2023 13782-Sfgz Destruction, -14 02/18/2023 95218-Psio Destruction, -14 07/17/2022 01680-Mikl Destruction, -14 09/07/2022 11591-Gdhq Destruction, -14 10/08/2021 56841-Gkuj Destruction, -01/08/2022 44686-Tkbp Destruction, -14 02/19/2022 14459-Vnjj Destruction, -14 05/19/2021 99741-Agbc Destruction, -14 08/20/2021 38261-Nhuk Destruction, -14 02/21/2021 88395-Wluk Destruction, 14 04/07/2021 35950-Sctt Destruction, 14 11/14/2020 80449-Tbve Destruction, 07-0412/30/2020 92479-Bimw Destruction, -08/12/2020 25484-Ftrx Destruction, 07-0409/30/2020 77758-Opvc Destruction, 07-0403/29/2020 09420-Oqya Destruction, 07-0406/24/2020 53874-Pzwe Destruction, 07-0402/15/2020 54507-Zxps Destruction, 07-0412/18/2019 08950-Kphe Destruction, 07-0409/11/2019 71377-Jdry Destruction, 07-0410/26/2019 68129-Mzas Destruction, 07-0406/08/2019 48036-Hrhh Destruction, 07-0407/26/2019 72919-Bzyj Destruction, 07-0402/15/2019 95363-Qbey Destruction, 07-0404/12/2019 92860-Wlzk Destruction, 07-0401/02/2019 78320-Gkwe Destruction, 07-0408/22/2018 43017-Efzn Destruction, 07-0410/03/2018 40757-Qmpl Destruction, 07-0407/04/2018 62131-Hwce Destruction, 07-0403/31/2018 97491-Jwtx Destruction, 07-0404/27/2018 94060-Daxw Destruction, 07-0402/17/2018 68630-Kssr Destruction, 07-0406/09/2017 71364-Wihu Destruction, 07-0407/29/2017 00699-Bfhu Destruction, 07-0409/13/2017 38605-Ulst Destruction, 07-0410/25/2017 42736-Abgw Destruction, 07-0412/09/2017 88820-Zent Destruction, 07-0403/26/2017 82566-Pofk Destruction, 07-0405/11/2017 61069-Lokj Destruction, 07-0402/12/2017 09101-Gczh Destruction, 07-0409/10/2016 11486-Hawf Destruction, 07-0410/26/2016 36964-Lakb Destruction, 07-0412/07/2016 02429-Vumm Destruction, 07-0402/10/2013 18038-Ospl Destruction, 07-0405/08/2013 93817-Sgnk Destruction, 07-0405/31/2015 59478-Yjpx Destruction, 07-0408/06/2015 95954-Cthe Destruction, 07-0411/06/2013 68870-Uclw Destruction, 07-0402/05/2014 50999-Hwwq Destruction, 07-0405/07/2014 24174-Ebtu Destruction, 07-0409/28/2014 12909-Vnhv Destruction, 07-0401/18/2015 37333-Hrmd Destruction, 07-0403/25/2015 68124-Qxel Destruction, 07-0410/17/2015 85973-Cpfy Destruction, 07-0411/28/2015 98857-Umwr Destruction, 07-0401/09/2016 31304-Jlhd Destruction, 07-0403/13/2016 19251-Cbxz Destruction, 07-0405/20/2016 84301-Qhjp Destruction, 07-0407/03/2016 82284-Ryiw Destruction, 07-0408/14/2013 17355-Gfjh Destruction, 07-0406/23/2012 93308-Uktv Destruction, 07-0405/19/2012 29521-Ztos Destruction, 07-0401/25/2012 92415-Rxui Destruction, 07-0403/21/2012 22797-Aalt Destruction, 07-0402/23/2012 42393-Rfqsethm Plate 11/06/2013 19461-Kyeyvkxw Plate 05/31/2015 55087-Iwpvqosh Plate 08/06/2015 24180-Hedgfupk Plate 11/14/2020 67314-Hbaizrun Plate 05/06/2023 23144-Pzxlxqqq Plate Each Additional 51344- Debride <25 sq cm 10/08/2021 O7595-DZTYAXYT DYSTROPHIC NAILS ANY # E4913-VURGKYPX DYSTROPHIC NAILS ANY # 32372 - Tenotomy, open flexor 04/30/2022 Next Appt Details Provider Name:Jennifer Pagan , 09/11/2024 02:15:00 PM, [address] [place] [address], [phone], Provider Name:Jennifer Pagan , 11/16/2024 01:30:00 PM, [address] [place] [address], [phone], Insurance Providers Payer Name Payer Address Payer Phone Subscriber Number Group Number Insured Name Patient Relationship to Insured Coverage Start Date Coverage End Date Medicare [employer] [facility] [employer] [address] [place] [address] [id number] Ernestina Fang Self - patient is the insured 6 [employer] [address] [place] [address] [id number] Ernestina Fang Self - patient is the insured Medical (General) History Medical History History ICD Code osteoporosis mumps measles joint implants/screws chicken pox asthma Arthritis broken bones hypertension Atrial fibrillation covid-19 Pacemaker Surgical History Surgery Date(Month/Year) bunionectomy hysterectomy wrist surgery left wrist surgery 07/2013 both eyes cataract surgery 2014 endoscopy 10/14/2015 ablation or a fib 08/2015 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
--- OUTSIDE RECORDS SUMMARY | 2024-08-31 18:32 | XMS_ITS ---
Author Organization [facility] Address [address] [place] [address] Care Team Providers Care Bleacher Pulp Name Role Phone TARA BLUE Unavailable [phone] ALLERGIES Allergen (clinical drug ingredient) Drug/Non Drug Allergy documented on EMR Reaction Allergy Type Onset Date Status amoxicillin / clavulanate Augmentin Unknown Drug Allergy Active REASON FOR VISIT Covid + MEDICATIONS Medication SIG (Take, Route, Frequency, Duration) Notes Start Date End Date Status Cardizem Active Xarelto Active Singulair Active Protonix Active Propafenone HCl Acti ve Advair HFA Active Spiriva HandiHaler A ctive Vitamin D Active Paxlovid (300/100) 20 x 150 MG & 10 x 100MG 3 tab Orally every 12hrs for 5 days 06/15/2023 Active Encounters Encounter Location Date Provider Diagnosis [facility] [address] [place] [address] 06/15/2023 TARA BLUE COVID-19 U07.1 ; Headache, unspecified R51.9 ; Myalgia, other site M79.18 and Acute cough R05.1 ASSESSMENTS Encounter Date Diagnosis Assessment Notes Treatment Notes Treatment Clinical Notes Section Notes 06/15/2023 COVID-19 (ICD-10 - U07.1) 06/15/2023 Headache, unspecified (ICD-10 - R51.9) 06/15/2023 Myalgia, other site (ICD-10 - M79.18) 06/15/2023 Acute cough (ICD-10 - R05.1) 06/15/2023 Other you are given Paxlovid due to the risk of you getting severe disease or to prevent ER or ICU admission. covid complications to be monitored-can get blood clot, to avoid this walking is encouraged,watch for SOA/pleurisy or chest pain/ your pulse ox to be monitored. drink plenty of fluids to avoid dehydration if symptoms of pneumonia or any worsening symptoms pl go to ER -call [facility] [phone] if any questions or symp worsening -you have to be quarantined as instructed by the doctor, certain meds will be stopped while you are on paxlovid, find out from doctor and pharmacist and be compliant with what meds to hold off PLAN OF TREATMENT Medication Medication Name Sig Start Date Stop Date Notes Paxlovid (300/100) 20 x 150 MG & 10 x 100MG 3 tab Orally every 12hrs for 5 days 06/15/2023 Treatment Notes Assessment Notes Other you are given Paxlovid due to the risk of you getting severe disease or to prevent ER or ICU admission. covid complications to be monitored-can get blood clot, to avoid this walking is encouraged,watch for SOA/pleurisy or chest pain/ your pulse ox to be monitored. drink plenty of fluids to avoid dehydration if symptoms of pneumonia or any worsening symptoms pl go to ER -call [facility] [phone] if any questions or symp worsening -you have to be quarantined as instructed by the doctor, certain meds will be stopped while you are on paxlovid, find out from doctor and pharmacist and be compliant with what meds to hold off Progress Notes * Ernestina ECHEVARRIA EDOB: 1 (84 yo F)Acc No.[id number]:06/15/2023 Progress Notes Patient:??Ernestina ECHEVARRIA Provider:??TARA BLUE MD :1940?Age:83 Y?Sex:Fe male Date:06/15/2023 Address:[address] [place], [place] [address] Subjective: * Chief Complaints: * ?1. Covid +. * HPI: ?COVID-19:? covid positive visiting [place], all at home positive for covid ?wants Paxlovid ?cough congetsion/BA Castañeda no SOA/cp or wheezing ?H/o asthma ghas risk factors ?tele health was done. * Medical History:??Atrial fib rillation, Acid reflux, Asthma, Left sided breast cancer 2013, covid =paxlovid May 2023. * Surgical History:??left side d breast cancer 2013 (lumpectomy and radiation) , left wrist fx 2012, hysterectomy , hernia repair . * Hospitalization/Major Diagno stic Procedure:??AFIB 2015, pneumonia 2013. * Family History:??No Family H istory documented..?? * Social History:?Tobacco Use:??Tobacco Use/Smoking??Are you a: nonsmoker.?? * Medications:??Taking Advair HFA , Taking Spiriva HandiHaler , Taking Vitamin D , Taking Cardizem , Taking Xarelto , Taking Singulair , Taking Protonix , Taking Propafenone HCl , Medication List reviewed and reconciled with the patient * Allergies:??Augmentin. Objective: Assessment: * Assessment: 1.??COVID-19 - U07.1 (Primar y)??2.??Headache, unspecified - R51.9??3.??Myalgia, other site - M79.18??4.??Acute cough - R05.1?? Plan: * Treatment: * Procedure Codes:??G8420 BMI< 30 AND >=22 CALC & DOCU * Images: * Sign off status: Pending * Provider:??TARA BLUE MD Lemuel e:??06/15/2023 History and Physical Notes * HPI (History of Present Illness) Category Sub-Category Detail Notes Category Not es COVID-19 covid positive visiting [place], all at home positive for covid wants Paxlovid cough congetsion/BA Castañeda no SOA/cp or wheezing H/o asthma ghas risk factors tele health was done
--- OUTSIDE RECORDS SUMMARY | 2024-08-31 18:32 | XMS_ITS | Clinical Summary ---
Author Organization [facility] Address [address] [place] [address] Care Team Providers Care Wood Floor Layer Name Role Phone Unavailable Primary Care Provider Unavailabl e Allergies Active Allergy Reactions Criticality Noted Date Comments Amoxicillin 02/20/2022 Betamethasone 04/01/2022 Clavulanic Acid 02/20/2022 Medications Medication Sig Dispensed Refills Start Date End Date Status Fluticasone-Salmetero l 500-50 MCG/ACT AEPB Inhale into the lungs. 0 Active dilTIAZem (TIAZAC) 360 MG 24 hr capsule Take 1 capsule (360 mg total) by mouth daily. 0 Active metoprolol succinate (TOPROL-XL) 24 hr tablet 25 mg Take 1 tablet (25 mg total) by mouth 2 (two) times a day. 0 Active citalopram (CeleXA) 20 MG tablet Take 1 tablet (20 mg total) by mouth daily. 0 Active losartan (COZAAR) tablet 50 mg Take 0.5 tablets (25 mg total) by mouth daily. 0 Active pantoprazole (PROTONIX) 40 MG tablet Take 1 tablet (40 mg total) by mouth every evening. 0 Active tiotropium (SPIRIVA) [address] 1 capsule (18 mcg total) into inhaler and inhale daily. 0 Active famotidine (PEPCID) 20 MG tablet Take 1 tablet (20 mg total) by mouth daily as needed. 0 Active gabapentin (NEURONTIN) 100 MG capsule Take 1 capsule (100 mg total) by mouth 2 (two) times a day. 0 Active apixaban (ELIQUIS) 2.5 MG TABS tablet Take 1 tablet (2.5 mg total) by mouth every 12 (twelve) hours. 60 tablet 3 06/03/2023 Active Active Problems Problem Noted Date Diagnosed Date Atrial fibrillation 06/03/2023 Social History Tobacco Use Types Packs/Day Years Used Date Smoking Tobacco: Former Smokeless Tobacco: Never Alcohol Use Standard Drinks/Week Comments Yes 0 (1 standard drink = 0.6 oz pur e alcohol) Sex and Gender Information Value Date Recorded Sex Assigned at Female 05/31/2023 11:04 AM EST Gender Identity Not on file Sexual Orientation Not on file Job Start Date Occupation Industry Not on file Not on file Not on file Last Filed Vital Signs Vital Sign Reading Time Taken Comments Blood Pressure 117/57 06/04/2023 8:31 AM EST Pulse 65 06/04/2023 8:31 AM EST Temperature 36.9 ??C (98.4 ??F) 06/04/2023 8:00 AM ES T Respiratory Rate 16 06/04/2023 4:00 AM EST Oxygen Saturation 95% 06/04/2023 4:00 AM EST Inhaled Oxygen Concentration - - Weight 50.6 kg (111 lb 9.6 oz) 06/03/2023 10:05 AM EST Height 165.1 cm (5' 5 ) 06/03/2023 10:05 AM EST Body Mass Index 18.57 06/03/2023 10:05 AM EST Plan of Treatment Health Maintenance Due Date Last Done Comments Depression Screening 1953 Preventative Health Evaluation 1959 Shingrix-Zoster Vaccine (1 of 2) 1991 Fall Risk Assessment 2006 Osteoporosis Screening (DEXA Scan) 2006 COVID-19 Vaccine ( season) 2024 04/24/2021, 08/16/2020, 07/26/2020 Influenza Vaccine (#1) 2024 3, 04/09/2022, 04/24/2021, Additional history exists DTap / Tdap / Td (2 - Td or Tdap) 11/25/2026 11/25/2016 Pneumococcal Vaccine Completed 04/13/2016, 07/30/2012, 11/05/2006 RSV Adult > 60+ Yrs or Completed 05/03/2023 Hepatitis B Vaccines Aged Out No long er eligible based on patient's age to complete this topic RSV Ped < 20 months Aged Out No longe r eligible based on patient's age to complete this topic Medical Devices Implanted Type Area Client Care Coordinator Device Identifier Shelf Expiration Date Model / Serial / Lot Device Clsur Watchman Flx Magda 27mm Bsci-Prnt [id number] - [id number] Implanted:Qty: 1 on 06/03/2023 [place] [facility] [place]: Heart ItsPlatonic JOSE RAFAEL 03/01/2026 [id number] / / [id number] Description:Implanted in lef t atrial appendage. Advance Directives For more information, please contact: [phone] Documents on File Type Date Recorded Patient Senior Coldfusion Developer Expl anation Advance Directive and Living Will 04/02/2022 5:40 AM Latest Code Status on File Code Status Date Activated Date Inactivated Comments Full Code 06/03/2023 2:26 PM 06/04/2023 6:01 PM Thi s code status was ascertained in the following way: discussion with patient . Code Status History Code Status Date Activated Date Inactivated Comments Full Code 04/02/2022 11:07 AM 04/02/2022 10:30 PM T his code status was ascertained in the following way: discussion with patient . Full Code 04/02/2022 6:03 AM 04/02/2022 11:07 AM Th is code status was ascertained in the following way: discussion with patient .
--- OUTSIDE RECORDS SUMMARY | 2024-08-31 18:32 | XMS_ITS ---
Author Organization [facility] Address [address] [place] [address] Care Team Providers Care Traffic Control Specialist Name Role Phone Tati SHAY, Bridgette Primary Care Provider Jennifer Denise Unavailable [phone] REASON FOR VISIT seen sooner Encounters Encounter Location Date Provider Diagnosis [address] [address] 08/10/2024 Jennifer Pagan Plan Of Treatment Next Appt Details Provider Name:Jennifer Magda Ej , 09/11/2024 02:15:00 PM, [address] [place] [address], [phone], Provider Name:Jennifer A Ej , 11/16/2024 01:30:00 PM, [address] [address], [phone], Progress Notes * Ernestina ECHEVARRIA EDOB: (84 yo F)Acc No.[id number]:08/10/2024 Progress Notes Patient:?Ernestina ECHEVARRIA Provider:?Jennifer Pagan DPM :1940???Age:84 Y???Sex:Female D ate:08/10/2024 Address:[address] [place] [id number] Pcp:Bridgette Duffy MD Subjective: * Chief Complaints: * ???1. Seen sooner. * Medical History:? Objective: * Vitals:? Assessment: Plan: * Treatment: * Images: * The named appointment provid er may or may not be the originator of this progress note, and it is not deemed complete until electronically signed by the appointment provider. Sign off status: Pending * Provider:Trina Pagan DPM Date:?2024 Generated for Arianna boo/Stalin/Daren on:?08/31/2024 06:31 PM EDT
--- OUTSIDE RECORDS SUMMARY | 2024-08-31 18:32 | XMS_ITS | Clinical Summary ---
Author Organization [address] [place] [address] Address [address] [place] [address] Phone Care Team Providers Care Thread Grinder Tool Name Role Phone Bridgette Duffy MD Primary Care Provider [phone] Allergies Active Allergy Reactions Criticality Noted Date Comments Amoxicillin 07/05/2024 Amoxicillin-Pot Clavulanate Nausea And Vomiting 05/04/2022 Augmentin Betamethasone 04/01/2022 Clavulanic Acid 07/05/2024 Medications dilTIAZem (TIAZAC) 360 mg 24 hr capsule TAKE 1 CAPSULE BY MOUTH DAILY 90 capsule 3 06/20/2024 Active aspirin 81 mg EC tablet Take 1 tablet (81 mg total) by mouth 1 (one) time each day. 08/12/2023 Active losartan (COZAAR) 25 mg tablet Take 1 tablet (25 mg total) by mouth 1 (one) time each day. Active citalopram (CeleXA) 20 mg tablet Take 1 tablet (20 mg total) by mouth 1 (one) time each day. Active pantoprazole (PROTONIX) 40 mg EC tablet Take 1 tablet (40 mg total) by mouth 1 (one) time each day. Active tiotropium (SPIRIVA) 18 mcg per inhalation capsule Place 1 capsule (18 mcg total) into inhaler and inhale 1 (one) time each day. 05/27/2016 Active Wixela Inhub 500-50 mcg/dose diskus inhaler Inhale 1 puff by mouth 2 (two) times a day. Active loratadine (CLARITIN) 10 mg tablet Take 1 tablet (10 mg total) by mouth 1 (one) time each day. Active famotidine (PEPCID) 10 mg tablet Take 2 tablets (20 mg total) by mouth if needed for heartburn. Active Active Problems Problem Noted Date Diagnosed Date Atrial tachycardia 03/06/2024 Hematoma of rectus sheath 03/06/2024 Pacemaker lead failure, initial encounter 2023 Atrial flutter 05/04/2022 Atrial fibrillation 07/31/2020 Overview (07/05/2024): Atrial fibrillation status post cryoballoon ablation 2012 with repeat atrial ablation in 2016. Mitral isthmus ablation but unable to achieve bidirectional block. Treated with rate control using metoprolol and anticoagulation with Eliquis. This was going well for quite a while but now having more symptoms. Last Assessment & Plan: I spoke with Ernestina about her atrial flutter which is likely mitral isthmus dependent. She is showing clearly inadequate rate control and I am concerned about the heart rate being difficult to control. She agreed to increase the metoprolol to 50 mg from 25 mg in hopes of getting a better rate. I went through the pros and cons of catheter ablation and cardioversion. She does want to proceed with the ablation in hopes of achieving bidirectional block. He had difficulty with epicardial connections but I will try an anterior approach and she agreed to have this done at [facility]. She will agree to continue anticoagulation and we can reevaluate whether that is necessary to continue long-term based on her [id number] score and any evidence of recurrent arrhythmia. She understands that he potential risks of venous access complications, cardiac perforation and tamponade, catheter related thrombus resulting in OR or stroke. He had Benign essential hypertension 07/31/2020 Overview (07/05/2024): Benign essential hypertension under excellent control. Last Assessment & Plan: Well rate controlled on current medications. Continue low-sodium diet. Supraventricular premature beats 07/31/2020 Overview (07/05/2024): Premature beats Supraventricular premature beats Encounters Date Type Department Care Team Description 08/22/2024 3:45 PM EST Ancillary Procedure [facility] - [address] [place] [address] 08/22/2024 Telephone [facility] - [address] [place] [address] Margarita Huang PA 07/04/2024 3:10 PM EST Telemedicine [facility] - [address] [place] [address] Isaura Shelby NP Longstanding persistent atrial fibrillation (CMS/HCC) (Primary Dx) 07/04/2024 Telephone [facility] - [address] [place] [phone] Bridgette Duffy MD Medical Records 07/04/2024 Telephone [facility] - [address] [place] [address] Isaura Shelby NP Procedure (Cardiac clearance ) 06/28/[address] [address] Michelle Delvalle, ALYSIA 1 year s/p Watchman follow up call 06/09/[address] [address] Michelle Delvalle, ALYSIA 1 year s/p Watchman follow up 06/07/2024 5:25 PM EST Ancillary Procedure [facility] - [address] [place] [address] from Last 3 Months Immunizations Name Administration Dates Next Due [facility] SARS-CoV-2 COVID-19, mRNA, LNP-S, preservative free 04/24/2021,08/16/2020,07/26/2020 Surgical History Surgery Date Site/Laterality Comments OTHER SURGICAL HISTORY 10/14/2015 PROCEDURE: SD ENDOSCOPY UPPER SMALL INTESTINE CATARACT EXTRACTION PROCEDURE: HISTORICAL CATARACT REMOVAL; COMMENT: 12/19/14, 10/31/14 OTHER SURGICAL HISTORY 01/19/2014 PROCEDURE: HISTORY OTHER BREAST LUMPECTOMY 11/14/2013 PROCEDURE: HISTORICAL BREAST LUMPECTOMY OTHER SURGICAL HISTORY 09/25/2011 PROCEDURE: PFT FULL (60 MINUTES) OTHER SURGICAL HISTORY 07/26/2009 PROCEDURE: SD ECHO TRANSTHORAC R-T 2D W/WO M-MODE REC COMP OTHER SURGICAL HISTORY 07/26/2009 PROCEDURE: OUTSIDE HOLTER MONITOR OTHER SURGICAL HISTORY 06/25/2008 PROCEDURE: PFT FULL (60 MINUTES) APPENDECTOMY PROCEDURE: HISTORICAL APPENDECTOMY HYSTERECTOMY PROCEDURE: HISTORICAL HYSTERECTOMY OTHER SURGICAL HISTORY 01/19/2014 PROCEDURE: HISTORY OTHER; COMMENT: Winger lymph node biopsy Medical History Medical History Date Comments Abdominal hernia DX:Abdominal he rnia Allergic rhinitis DX:Allergic rh initis Anxiety DX:Anxiety Asthma DX:Asthma Cancer of lower-outer quadra nt of female breast (CMS/HCC) DX:Cancer of lower-outer consuelo drant of female breast (HCC) H/O sebaceous cyst DX:H/O sebace ous cyst Hiatal hernia with gastroeso phageal reflux DX:Hiatal hernia with gastro esophageal reflux History of basal cell carcin essie (BCC) of skin DX:History of basal cell car cinoma (BCC) of skin Localized osteoarthritis of knee DX:Localized osteoarthritis of knee LUQ abdominal pain DX:LUQ abdomi nal pain Osteoporosis DX:Osteoporosis Rotator cuff syndrome of left shoulder DX:Rotator cuff syndrome of left shoulder Wrist injury DX:Wrist injury Sebaceous cyst DX:Sebaceous cys t Family History Medical History Relation Name Comments Alcohol abuse Father Arthritis Mother Heart attack Mother Hypertension Mother Asthma Sister Breast cancer Sister Relation Name Status Comments Father Mother Sister Social History Tobacco Use Types Packs/Day Years Used Date Smoking Tobacco: Former Smokeless Tobacco: Never Alcohol Use Standard Drinks/Week Comments Yes 0 (1 standard drink = 0.6 oz pur e alcohol) Comments Unknown Sex and Gender Information Value Date Recorded Sex Assigned at Not on file Legal Sex Female 6:24 AM EST Gender Identity Not on file Sexual Orientation Not on file Obstetrics History Last Filed Vital Signs Vital Sign Reading Time Taken Comments Blood Pressure 122/62 03/06/2024 3:48 PM EDT Sit ting R Arm Pulse 92 03/06/2024 3:48 PM EDT Temperature - - Respiratory Rate - - Oxygen Saturation - - Inhaled Oxygen Concentration - - Weight 54.9 kg (121 lb) 03/06/2024 3:48 PM EDT Height 167.6 cm (5' 6 ) 03/06/2024 3:48 PM EDT Body Mass Index 19.53 03/06/2024 3:48 PM EDT Plan of Treatment Upcoming Encounters Date Type Department Care Team (Late st Contact Info) Description 10/03/2024 12:40 PM EDT Office Visit [facility] [address] [place] [phone] Isaura Shelby NP [address] [place] [phone] 04/02/2025 2:30 PM EDT Ancillary Procedure [facility] - [facility] [address] [facility] [address] [place] [phone] Health Maintenance Due Date Last Done Comments Zoster Vaccines (1 of 2) 08/26/2015 07/01/2015 Cholesterol Screening (Lipid Panel) 05/24/2022 Depression Screening 05/24/2022 Falls Risk Assessment 05/24/2022 Medicare Annual Wellness Visit 05/24/2022 Osteoporosis Screening (Bone Density Screening) 05/24/2022 Social Influencers of Health Screening 05/24/2022 Hypertension/CHF/CAD Annual BMP Blood Test 08/28/2025 08/28/2024 DTaP,Tdap,and Td Vaccines (2 - Td or Tdap) 11/25/2026 11/25/2016 Pneumococcal Vaccine: 50+ Years Completed 04/13/2016, 07/30/2012, 11/05/2006 RSV Immunization Patients 60+ Years Old Completed 05/03/2023 COVID-19 Vaccine Completed 04/04/2024, , 10/09/2021, Additional history exists Influenza Vaccine Completed 04/04/2024, , 04/09/2022, Additional history exists HIB Vaccines Aged Out No longer eligi ble based on patient's age to complete this topic HPV Vaccines Aged Out No longer eligi ble based on patient's age to complete this topic Hepatitis A Vaccines Aged Out No long er eligible based on patient's age to complete this topic Hepatitis B Vaccines Aged Out No long er eligible based on patient's age to complete this topic IPV Vaccines Aged Out No longer eligi ble based on patient's age to complete this topic MMR Vaccines Aged Out No longer eligi ble based on patient's age to complete this topic Meningococcal ACWY Vaccine Aged Out N o longer eligible based on patient's age to complete this topic Meningococcal B Vacine Aged Out No lo nger eligible based on patient's age to complete this topic RSV Immunization Patients Under 20 months Aged Out No longer eligible based on patient's age to complete this topic Varicella Vaccines Aged Out No longer eligible based on patient's age to complete this topic Medical Devices Implanted Type Area Security Rep Device Identifier Shelf Expiration Date Model / Serial / Lot Bsci-Crm [id number] Implanted: (Quantity not on file) Cardiac Pacemaker [employer] RHYTHM MGMT [id number] / [id number] / Device Clsur Watchman Flx Magda 27mm Bsci-Prnt [id number] Implanted:Qty : 1 on 06/03/2023 by Alexandro Llanes MD Left: Heart CannaBuild JOSE RAFAEL 03/01/2026 [id number] / / [id number] Description:Implanted in lef t atrial appendage. Procedures Procedure Name Priority Date/Time Associated Diagnosis Comments MAGNESIUM Routine 08/28/2024 1:13 PM EDT VT (ventricular tachycardia) (CMS/HCC) BASIC METABOLIC PANEL Routine 08/28/2024 1:13 PM EDT VT (ventricular tachycardia) (CMS/HCC) B-TYPE NATRIURETIC PEPTIDE Routine 08/28/2024 1:13 PM EDT VT (ventricular tachycardia) (CMS/HCC) CARDIAC DEVICE CHECK- REMOTE- MURJ Routine 08/22/2024 3:41 PM EST CARDIAC DEVICE CHECK- REMOTE- MURJ Routine 06/07/2024 5:23 PM EST from Last 3 Months Results * B-type natriuretic peptide (08/28/2024 1:13 PM EDT) B-Type Natriuretic Peptide 70.3 0.0 - 100.0 pg/mL [facility] Comment:[employer] ADVIA Centau r XP methodology Blood Venous blood specimen / Unknown 08/28/2024 1:13 PM EDT 08/28/2024 Narrative [facility] 1 - 08/29/2024 7:06 AM EDT Performed at: ??01 - [facility] [address] ??[id number] Freezing Machine Operator: Olga Brand MD, Phone: ??[phone] Isaura Shelby CHROME PLATER LAB BLOOD ORDERABLES Final R esult Performing Organization Address City/[facility]/ZIP Co de Phone Number [facility] 1 * Magnesium (08/28/2024 1:13 PM EDT) [facility] Magnesium 1.9 1.6 - 2.3 mg/dL [facility] 1 Blood Venous blood specimen / Unknown 08/28/2024 1:13 PM EDT 08/28/2024 Narrative [facility] 1 - 08/29/2024 8:07 AM EDT Performed at: ??01 - [facility] [address] ??[id number] Freezing Machine Operator: Olga Brand MD, Phone: ??[phone] Isaura Shelby CHROME PLATER LAB BLOOD ORDERABLES Final R esult Performing Organization Address City/[facility]/ZIP Co de Phone Number [facility] 1 * (ABNORMAL) Basic metabolic panel (08/28/2024 1:13 PM EDT) Glucose 117(H) 70 - 99 mg/dL [facility] 1 Blood Urea Nitrogen (BUN) 18 8 - 27 mg/dL [facility] 1 Creatinine 0.94 0.57 - 1.00 mg/dL [facility] 1 eGFR 60 >59 mL/min/1.7 3 [facility] 1 BUN/Creatinine Ratio 19 12 - 28 [facility] 1 Sodium 143 134 - 144 mmol/L [facility] 1 Potassium 4.4 3.5 - 5.2 mmol/L [facility] 1 Chloride 108(H) 96 - 106 mmol/L [facility] 1 Carbon Dioxide 21 20 - 29 mmol/L [facility] 1 Calcium 9.8 8.7 - 10.3 mg/dL [facility] 1 Blood Venous blood specimen / Unknown 08/28/2024 1:13 PM EDT 08/28/2024 Narrative [facility] 1 - 08/29/2024 4:06 AM EDT Performed at: ??01 - [facility] [address] ??[id number] Freezing Machine Operator: Olga Brand MD, Phone: ??[phone] us Isaura Shelby CHROME PLATER LAB BLOOD ORDERABLES Final R esult [facility] * Cardiac device check - Remote- MURJ (08/22/2024 3:41 PM EST) Only the most recent of2 resultswithin the time period is included. Date Time Interrogation Session [id number] CV DEVICE CHECK Type Interrogation Session Remote Device Initiated CV DEVICE CHECK Implantable Pulse Generator Security Rep BSX CV DEVICE CHECK Implantable Pulse Generator Type IPG CV DEVICE CHECK Implantable Pulse Generator Model L110 CV DEVICE CHECK Implantable Pulse Generator Serial Number [id number] CV DEVICE CHECK Implantable Pulse Generator Implant Date [id number] CV DEVICE CHECK Battery Remaining Percentage 100.00 CV DEVICE CHECK Battery Remaining Longevity 108.0 CV DEVICE CHECK Battery Status Beginning of Service CV DEVICE CHECK Bhaskar Statistic RV Percent Paced 100.00 CV DEVICE CHECK Lead Channel Setting Sensing Sensitivity 2.50 CV DEVICE CHECK Lead Channel Impedance Value 636 CV DEVICE CHECK Lead Channel Pacing Threshold Amplitude 0.800 CV DEVICE CHECK Lead Channel Pacing Threshold Pulse Width 0.4 CV DEVICE CHECK Lead Channel RV Pacing Threshold Date 2024-08-16 CV DEVICE CHECK Lead Channel Setting Pacing Amplitude 1.300 CV DEVICE CHECK Lead Channel Setting Pacing Pulse Width 0.4 CV DEVICE CHECK Bhaskar Setting Mode (NBG Code) VVIR CV DEVICE CHECK Bhaskar Setting Lower Rate Limit 70 CV DEVICE CHECK Bhaskar Setting Maximum Sensor Rate 110 CV DEVICE CHECK Zone Setting Type Category VT CV DEVICE CHECK Rate 160 CV DEVICE CHECK Zone Setting Status Monitor CV DEVICE CHECK Zone ID 1 CV DEVICE CHECK Date of Service 2024-09-16 CV DEVICE CHECK Anatomical Region Laterality Modality Device Interroga tion 08/18/2024 1:20 AM EST Impressions 08/22/2024 3:38 PM EST Tachycardia: VT * Stored EGMs are consistent with or suggestive of Ventricular Tachycardia * Total episodes: 1 22 beat 08/17/24 17:70 Additional Notes: AV Node ablation Narrative Procedure Note Margarita Huang PA - 08/22/2024 IMPRESSION: Tachycardia: VT * Stored EGMs are consistent with or suggestive of VentricularTachycardia * Total episodes: 1 22 beat 08/17/24 17:70 Additional Notes: AV Node ablation Margarita DAVENPORT CV IMPLANTABLE CARDIAC DEVICE SD OCEDURES Final Result from Last 3 Months Insurance MEDICARE [facility] Care Teams Thread Grinder Tool Relationship Specialty Start Date End Date Bridgette Duffy MD [address] [place] [phone] PCP - General 05/13/20
--- OUTSIDE RECORDS SUMMARY | 2024-08-31 18:33 | XMS_ITS | Patient Health Record ---
Author Organization [facility] Address [address] [facility] [address] [place] [address] Care Team Providers Care Chipper Machine Operator Name Role Phone Gloria Villegas Unavailable [phone] Reason For Referral No Information Medications Medication SIG (Take, Route, Frequency, Duration) Notes Start Date End Date Status Tiotropium Homer Monohydrate 18MCG Inhalation daily for -3 [facility] 06/02/2012 Active Singulair 10 MG 1 ORAL daily for - [facility] 06/02/2012 Active Rivaroxaban 20MG ORAL daily for -3 [facility] 06/02/2012 Active Propafenone HCl 225MG 1 ORAL twice daily for -3 [facility] 06/02/2012 Active losartan 50MG ORAL daily for -3 [facility] 06/02/2012 Active Fluticasone-Salmeterol 500MCG - 50MCG 1 Inhalation twice daily for -[address] [place] [address] 06/02/2012 Active dilTIAZem HCl ER Beads 180MG 1 ORAL daily for -3 [facility] 06/02/2012 Active Citalopram Hydrobromide 20MG 1 ORAL daily for -[address] [place] [address] 06/02/2012 Active Problems Problem Type SNOMED Code ICD Code Onset Dates Problem Status W/U Status Risk Notes Problem Benign essential hypertension (6931681) Essential hypertension, benign (401.1) Active confirmed Major Problem Cardiac arrhythmia (932840088) Unspecified cardiac dysrhythmia (427.9) Active confirmed Diag Problem Asthma (disorder) (088246287) Asthma, unspecified, unspecified status (493.90) Active confirmed Major Problem Menopausal symptom (49722441) Symptomatic menopausal or female climacteric states (627.2) Active confirmed Major Problem Osteoporosis (26289991) Unspecified osteoporosis (733.00) Active confirmed Diag Problem Gynecological examination normal (809656819745547) Routine gynecological examination (V72.31) Active confirmed Major Problem Screening for malignant neoplasm of colon (749361221) Special screening for malignant neoplasms, colon (V76.51) Active confirmed Major Plan Of Treatment No Information Insurance Providers Payer Name Payer Address Payer Phone Subscriber Number Group Number Insured Name Patient Relationship to Insured Coverage Start Date Coverage End Date [facility] [address] [facility] [address] [id number] HATTIE ECHEVARRIA Self - patient is the insured
--- OUTSIDE RECORDS SUMMARY | 2024-08-31 18:33 | XMS_ITS ---
Author Name [facility] Organization Unknown Results Test Name/Text Value Interpretation Date Range Source BLOOD BANK CMNT PATIENT-IMP Normal [facility] ABO+RH GP BLD Normal CTT HSFRAN BLD GP AB SCN SERPL QL Normal [facility] GLUCOSE BLDC GLUCOMTR MCNC 94mg/dL Normal [id number] 70 - 199 [facility] Problems Problem Status Onset Date Problem Type Date of Resolution Source Encounter for adjustment or management of cardiac device active EncounterDiagnosisAct CT_T HSFRAN Immunizations Vaccine Date Source Lot Number Status Pfizer SARS-CoV-2 COVID-19, mRNA, LNP-S, preservative free 04/24/2021 [facility] [id number] completed Pfizer SARS-CoV-2 COVID-19, mRNA, LNP-S, preservative free 08/16/2020 [facility] [id number] completed Pfizer SARS-CoV-2 COVID-19, mRNA, LNP-S, preservative free 07/26/2020 CT_[facility] [id number] completed Encounters Encounter Type Encounter Reason Primary Diagnosis Location Date Inpatient Unspecified atrial fibrillation Unspecified atrial fibrillation [facility] [place] Care Team Organization Name Specialty Phone Email Start Date End Da te [facility] 06/03/2023
--- OUTSIDE RECORDS SUMMARY | 2024-08-31 18:33 | XMS_ITS | Encounter Summary ---
Author Organization [facility] [place] [address] Care Team Providers Care Horticultural Therapist Name Role Phone Bridgette Duffy MD Primary Care Provider [phone] Encounter Details Date Type Department Care Team (Late st Contact Info) Description 08/22/2024 Telephone [facility] - [facility] [address] [facility] [address] [place] [phone] Margarita Huang PA [address] [place] [address] Social History Tobacco Use Types Packs/Day Years Used Date Smoking Tobacco: Former Smokeless Tobacco: Never Alcohol Use Standard Drinks/Week Comments Yes 0 (1 standard drink = 0.6 oz pur e alcohol) Comments Unknown Sex and Gender Information Value Date Recorded Sex Assigned at Not on file Legal Sex Female 6:24 AM EST Gender Identity Not on file Sexual Orientation Not on file documented as of this encounter Progress Notes * Debora Adams RN - 08/25/2024 3:11 PM EST Spoke with patient. She has not gone to the lab yet. Now she states she will go Wednesday to [facility]. Confirmed orders have been faxed successfully. Patient reports feeling well. I asked her to call when she has gone to let us know. * Isaura Shelby NP - 08/25/2024 2:22 PM EST Lab work does not seem to have resulted, could you follow-up with her and see if she went to the lab, thank you and if I did miss them somewhere else in the chart please just let me now * Debora Adams RN - 08/23/2024 8:23 AM EST Reviewed med list and is up to date except she states not taking inhalers but is seeing front worker next week to discuss further. She stopped taking on her own and states not short of breath. Denied any sx of chest pain, palpitations, shortness of breath, dizziness. No recall of issues during reported VT . Labs ordered under per and update sent back to . [facility]. I asked patient to call to let us know once she has gone. * ISSAC Ludwig - 08/22/2024 3:39 PM EST See MURJ encounter titled Ancillary Procedure, report may be found under media, dated:\ August 17 at 5 PM patient had 22 beats of VT status post AV node ablation Can you please call patient and assess for any symptoms recent illness, missed medications please ask her to update blood work for Isaura including a magnesium, BNP and a basic metabolic panel documented in this encounter Plan of Treatment Upcoming Encounters Date Type Department Care Team (Late st Contact Info) Description 10/03/2024 12:40 PM EDT Office Visit [facility] [address] [place] [phone] Isaura Shelby NP [address] [place] [phone] 04/02/2025 2:30 PM EDT Ancillary Procedure [facility] - [address] [place] [address] documented as of this encounter Procedures Procedure Name Priority Date/Time Associated Diagnosis Comments B-TYPE NATRIURETIC PEPTIDE Routine 08/28/2024 1:13 PM EDT VT (ventricular tachycardia) (CMS/HCC) MAGNESIUM Routine 08/28/2024 1:13 PM EDT VT (ventricular tachycardia) (CMS/HCC) BASIC METABOLIC PANEL Routine 08/28/2024 1:13 PM EDT VT (ventricular tachycardia) (CMS/HCC) documented in this encounter Results * Magnesium (08/28/2024 1:13 PM EDT) Magnesium 1.9 1.6 - 2.3 mg/dL [facility] 1 Blood Venous blood specimen / Unknown 08/28/2024 1:13 PM EDT 08/28/2024 Narrative [facility] 1 - 08/29/2024 8:07 AM EDT Performed at: ??01 - [facility] [address] ??[id number] Operating Table Assembler: Olga Brand MD, Phone: ??[phone] us Isaura Shelby DIRECTOR LOSS PREVENTION LAB BLOOD ORDERABLES Final R esult [facility] 1 * (ABNORMAL) Basic metabolic panel [...] AM EDT Performed at: ??01 - [facility] [address] ??[id number] Operating Table Assembler: Olga Brand MD, Phone: ??[phone] Isaura Shelby DIRECTOR LOSS PREVENTION LAB BLOOD ORDERABLES Final R esult Performing Organization Address City/[facility] Co de Phone Number [facility] 1 * B-type natriuretic peptide (08/28/2024 1:13 PM EDT) Pathologist [facility] B-Type Natriuretic Peptide 70.3 0.0 - 100.0 pg/mL [facility] 1 Comment:[employer] ADVIA Centau r XP methodology Blood Venous blood specimen / Unknown 08/28/2024 1:13 PM EDT 08/28/2024 Narrative [facility] 1 - 08/29/2024 7:06 AM EDT Performed at: ??01 - [facility] [address] ??[id number] Operating Table Assembler: Olga Brand MD, Phone: ??[phone] Isaura Shelby DIRECTOR LOSS PREVENTION LAB BLOOD ORDERABLES Final R esult [facility] 1 documented in this encounter Visit Diagnoses Diagnosis VT (ventricular tachycardia) (CMS/[facility])- Primary Paroxysmal ventricular tachycardia Encounter for adjustment or management of cardiac device documented in this encounter Care Teams Horticultural Therapist Relationship Specialty Start Date End Date Bridgette Duffy MD [address] [place] [phone] PCP - General 05/13/20 documented as of this encounter
--- OUTSIDE RECORDS SUMMARY | 2024-08-31 18:33 | XMS_ITS | Encounter Summary ---
Author Organization [facility] [place] [address] Care Team Providers Care Manager Trading Name Role Phone Bridgette Duffy MD Primary Care Provider [phone] Encounter Details Date Type Department Care Team (Late st Contact Info) Description 08/22/2024 3:45 PM EST Ancillary Procedure [facility] Cardiology [facility] [address] [facility] [address] [place] [phone] Social History Tobacco Use Types Packs/Day Years [...] on file documented as of this encounter Plan of Treatment Upcoming Encounters Date Type Department Care Team (Late st Contact Info) Description 10/03/2024 12:40 PM EDT Office Visit [facility] Cardiology [facility] [address] [place] [phone] Isaura Shelby NP [address] [place] [address] [place] [phone] 04/02/2025 2:30 PM EDT Ancillary Procedure [facility] Cardiology [facility] [address] [place] [phone] documented as of this encounter Procedures Procedure Name Priority Date/Time Associated Diagnosis Comments CARDIAC DEVICE CHECK- REMOTE- MURJ Routine 08/22/2024 3:41 PM EST documented in this encounter Results * Cardiac device check - Remote- MURJ (08/22/2024 3:41 PM EST) Date Time Interrogation Session [id number] CV DEVICE CHECK Type Interrogation Session Remote Device Initiated CV DEVICE CHECK Implantable Pulse Generator Business Operations Manager BSX CV DEVICE CHECK Implantable Pulse Generator Type IPG CV DEVICE CHECK Implantable Pulse Generator Model [id number] CV DEVICE CHECK Implantable Pulse Generator Serial Number [id number] CV DEVICE CHECK Implantable Pulse Generator Implant [...] ablation Margarita DAVENPORT CV IMPLANTABLE CARDIAC DEVICE GA OCEDURES Final Result documented in this encounter Visit Diagnoses Not on filedocumented in this encounter Care Teams Manager Trading Relationship Specialty Start Date End Date Bridgette Duffy MD [address] [place] [id number] PCP - General 05/13/20 documented as of this encounter
--- OUTSIDE RECORDS SUMMARY | 2024-08-31 18:33 | XMS_ITS | Clinical Summary ---
Author Organization [facility] Address [address] [place] [address] Care Team Providers Care Outside Food Server Name Role Phone Unavailable Primary Care Provider Unavailabl e Social History Tobacco Use Types Packs/Day Years Used Date Smoking Tobacco: Never Assessed Comments Unknown Sex and Gender Information Value Date Recorded Sex Assigned at Not on file Legal Sex Female 4:26 AM EDT Gender Identity Not on file Sexual Orientation Not on file Plan of Treatment Health Maintenance Due Date Last Done Comments DTaP/Tdap/Td (1 - Tdap) 1959 Pneumococcal 50+ years (1 of 1 - PCV) 1991 Zoster (Shingrix) (1 of 2) 1991 Bone Density 2006 RSV (1 - 1-dose 75+ series) 2016 COVID-19 Vaccine ( - 2023-2 5 season) 2024 Influenza (#1) 2024 HPV Vaccine Aged Out No longer eligi ble based on patient's age to complete this topic Hep A Aged Out No longer eligi ble based on patient's age to complete this topic Hep B Aged Out No longer eligi ble based on patient's age to complete this topic Hib Aged Out No longer eligi ble based on patient's age to complete this topic Mammogram/Breast Imaging Discontinued Meningococcal ACWY Aged Out No longer eligible based on patient's age to complete this topic Pap Smear Discontinued Zoster (Zostavax) Discontinued
[2024-08-31] MEDS: methylPREDNISolone Sod Succ 125 MG/2 ML VIAL IVPUSH (18:48)
--- NOTE | 2024-08-31 19:50 | PM.IMHP ---
History of Present Illness Date of Service: 08/31/24 Attending physician on admission: Chapin Fields Chief Complaint: Weakness and diarrhea Pt is an 84-year-old female with a PMH significant for?HTN, persistent AFib s/p ablation x4, Watchman, and pacemaker in place, and GERD who presents to the ED with?diarrhea, abdominal pain, fatigue, and generalized weakness x4 days. Pt initially experienced intractable diarrhea and left-sided abdominal pain for 2 days. Diarrhea mostly stopped 2 days ago, though had at least 1 more episode yesterday. Pt has been felt bloated, gassy, and ?horrible? with ?malaise? the past 2 days. No nausea or vomiting. Has been keeping up with fluids, but not eating anything solid. Pt denies sick contacts, no suspicious food. Denies chest pain/pressure, palpitations. No SOB or difficulty breathing. Pt has been in contact with PCP 3 times for symptoms the past 2 days. Eventually was directed to come to the ED for further evaluation. In the ED pt was hypertensive up to 140/66, vitals otherwise stable and WNL. Labs were significant for leukocytosis 20.3 and 10% bandemia, otherwise grossly unremarkable and around baseline for pt. Stable normocytic anemia of 10.7/32.5. No significant electrolyte abnormalities. Renal function baseline. Lactic acid WNL. Hepatic function WNL. Troponin WNL at 11.7. Lipase WNL. Tested negative for flu, COVID, RSV. CXR showed borderline cardiac enlargement with atrial appendage occlusion device, but no active pulmonary disease. CT of abdomen with findings suggestive of colitis of transverse and descending colon. Also showed mild dilation of common bile duct without definitive cholelithiasis. EKG demonstrated ventricular paced rhythm with underlying atrial flutter. Pt was treated with IVF, Solu-Medrol, and Zosyn. Pt will be admitted to the hospital for treatment and further evaluation of generalized weakness and bandemia in the setting of colitis. Review of Systems Review of Systems: Negative except for that which is stated in the [facility] Medical History (Updated 08/31/24 @ 20:35 by ISSAC Manuel) HTN (hypertension) GERD (gastroesophageal reflux disease) Persistent atrial fibrillation Surgical History History of surgery on left wrist Social History Alcohol intake: former Patient Tobacco Use Status: Former Tobacco user Smoked in Last 30 Days: No Use of substances other than those prescribed or required for medical reasons: No Advance Directives: No Advance Directives Information Provided: Yes Do you have a plan to hurt others: No Plan Current occupational status: retired Current occupation: right hand dominant Meds Allergies Allergy/AdvReac Type Severity Reaction Status Date / Time Amoxicillin / Clavulanate Allergy Nausea Uncoded 08/31/24 13:06 Home Medications ?Medication ?Instructions ?Recorded ?Confirmed ?Last Taken ?Type citalopram 20 mg tablet 20 mg PO DAILY 10/29/23 08/31/24 2 Days Ago History ~08/29/24 diltiazem HCl 360 mg 360 mg PO DAILY 10/29/23 08/31/24 2 Days Ago History capsule,extended release 24 hr ~08/29/24 pantoprazole 40 mg tablet,delayed 40 mg PO DAILY@0630 10/29/23 08/31/24 2 Days Ago History release ~08/29/24 acetaminophen 325 mg tablet 975 mg PO Q6H PRN pain 08/31/24 08/31/24 2 Days Ago History ~08/29/24 aspirin 81 mg tablet,delayed 81 mg PO DAILY 08/31/24 08/31/24 2 Days Ago History release ~08/29/24 gabapentin 100 mg capsule 100 mg PO BID 08/31/24 08/31/24 2 Days Ago History ~08/29/24 losartan 25 mg tablet 25 mg PO DAILY 08/31/24 08/31/24 2 Days Ago History ~08/29/24 Physical Exam Vital Signs and Narrative: Vital Signs: Last Vital Signs Temp 97.9 F 08/31/24 19:40 Pulse 75 08/31/24 19:40 Resp 18 08/31/24 19:40 BP 140/66 H 08/31/24 19:40 Pulse Ox 99 08/31/24 19:40 O2 Del Method Room Air 08/31/24 19:40 BMI result Body Mass Index 18.9 General: AOx3, no acute distress Resp: CTA bilaterally CVS: S1, S2, RRR GI: +BS, no distention, left-sided tenderness. No rebound tenderness. No RUQ tenderness. Negative Robin's sign. Skin: Warm, dry Neuro: Cranial nerves II-XII grossly intact bilaterally. Motor grossly intact bilaterally Extremities: No edema Psych: Appropriate affect Results Labs 08/31/24 13:21 08/31/24 13:21 Labs: Laboratory Results - last 24 hr 08/31/24 08/31/24 13:21 16:33 MCV 81.0 MCH 26.7 L MCHC 32.9 RDW 18.6 H Plt Count 250 MPV 10.3 Immature Gran % (Auto) Cancelled Neut % (Auto) Cancelled Lymph % (Auto) Cancelled [place] % (Auto) Cancelled Eos % (Auto) Cancelled Baso % (Auto) Cancelled Lymph # (Auto) Cancelled [place] # (Auto) Cancelled Eos # (Auto) Cancelled Baso # (Auto) Cancelled Abs Immat Gran (auto) Cancelled Absolute Neuts (auto) Cancelled Absolute Nucleated RBC 0.000 Nucleated RBC % (auto) 0.0 Neutrophils % (Manual) 82 H Band Neutrophils % 10 H Lymphocytes % (Manual) 4 L Monocytes % (Manual) 2 Eosinophils % (Manual) 1 Metamyelocytes % 1 Abs Neuts (Manual) 18.7 H Lymphocytes # (Manual) 0.8 L Monocytes # (Manual) 0.4 Eosinophils # (Manual) 0.2 Metamyelocytes # 0.2 Toxic Vacuolation PRESENT Dohle Bodies PRESENT Platelet Estimate NORMAL Large Platelets PRESENT Plt Morphology Comment NOTED RBC Morphology NOTED Ovalocytes 1+ (5-14) Acanthocytes (Spur) 1+ (0-2) Anion Gap 14 Estim Creat Clear Calc 30.4 Estimated GFR 49 Random Glucose 90 Lactic Acid 1.5 Calcium 9.2 Magnesium 2.6 Total Bilirubin 0.5 Direct Bilirubin 0.2 AST 18 ALT 7 Alkaline Phosphatase 87 Total Protein 7.0 Albumin 3.6 Lipase 16 Influenza Type A (PCR) NEGATIVE Influenza Type B (PCR) NEGATIVE RSV RNA Qual (PCR) NEGATIVE SARS-CoV-2 RNA (RT-PCR) NEGATIVE Imaging Radiologist's Impressions: Impressions Chest X-Ray 08/31/24 16:01 IMPRESSION: 1. Borderline cardiac enlargement with atrial appendage occlusion device. Single-lead pacer with lead in the right ventricle. 2. Hyperaerated lungs with no definite active disease. Electronically signed by: Lee Ibarra MD 08/31/2024 04:25 PM EDT Workstation: [id number] Assessment and Plan (1) Colitis: Status: Acute (2) Bandemia: Status: Acute Plan Pt is an 84-year-old female with a PMH significant for?HTN, persistent AFib s/p ablation x4, Watchman, and pacemaker in place, and GERD who presents to the ED with?diarrhea, abdominal pain, fatigue, and generalized weakness x4 days. Pt will be admitted to the hospital for treatment and further evaluation of generalized weakness and bandemia in the setting of colitis. Acute colitis with bandemia Generalized weakness, malaise, diarrhea, left-sided abdominal pain x4 days Pt with bandemia of 10% and leukocytosis 20.3 CT suggestive of colitis of transverse and descending colon No sepsis: No tachycardia, tachypnea, or fever; lactic acid WNL Pt received IVF and started on broad-spectrum antibiotics in the ED Will empirically treat with Zosyn, started 08/31/2024 Check C diff, GI panel Clear liquid diet for now, advance as tolerated Follow blood cultures PT consult ?CBD dilation CT showed mild dilation of CBD with no definitive choledocholithiasis LFTs WNL, no N/V, denies RUQ tenderness, negative Robin's sign No further workup or imaging indicated at this time Consider abdominal ultrasound if pt experiences RUQ pain Persistent AFib S/p Watchman and pacemaker Continue diltiazem HTN Continue losartan Peripheral neuropathy Continue gabapentin GERD Continue PPI Full Code Attending:?Dr. Fields DVT Prophylaxis: Lovenox Pt will require a hospitalization of at least two nights for treatment of?generalized weakness and bandemia in the setting of colitis. Given patient's significant leukocytosis and bandemia, they are at risk of significant deterioration without hospital level care for administration of empiric IV antibiotics, as well as PT consult. Quality Stroke Does the patient have a stroke diagnosis?: No VTE Prior VTE?: No VTE Risk Level:: Medical - moderate - high VTE Device Contraindication: Treatment Not Indicated VTE Drug Contraindication: N/A - Med Ordered
--- NOTE | 2024-08-31 19:54 | PHA.MEDREC ---
Addendum entered by Lori Coker RPh 08/31/24 20:05: reviewed by [facility]. Original Note: Pharmacy Consult ? Medication Reconciliation Pharmacy has completed the medication reconciliation. Spoke with patient and she confirmed her medications with me. Patient confirmed she is still taking the Citalopram 20mg tab once a day and states she is still taking it and filling it at [email or web address]; I called [email or web address] and they stated the patient has not gotten that medication since 04/11 for 90 days and states she has not tried to refill it since. Patient confirmed she is taking her Gabapentin 100mg capsule twice a day instead of three times a day and states she started taking it twice a day recently and its still gives her enough relief. She confirmed she has not taken any medications in about 2-3 days.
[2024-08-31] MEDS: Acetaminophen 325 MG TABLET 650 MG PO (21:11)
--- NOTE | 2024-08-31 23:22 | PC.NURSE ---
Took over care from ALYSIA Ryan, Medicated per aug, pt resting in [facility], no sign of distress at this time.
--- NOTE | 2024-08-31 23:42 | PC.NURSE ---
pt oob to bathroom with assist, pt placed in hospital bed.
[2024-09-01] VITALS (11 sets, daily range): BP systolic 109–153; BP diastolic 49–75; PULSE 70–105; RESP 16–20; TEMP 36.3–36.6; O2SAT 96–99
[2024-09-01 00:37] LABS: Appearance Urine Cloudy; Color Urine Yellow; Glucose Urine UA Negative (Negative); Leukocyte Esterase Urine Moderate (2+) (Negative); Nitrite Urine Negative (Negative); Specific Gravity - Urine >= 1.030 (1.005-1.025); UMIC TRIGGER UACC YES; Urine Blood Large (3+) (Negative); Urine Ketones 15 mg/dL (Negative); Urine Protein 30 (1+) mg/dL (Neg-Trace)
[2024-09-01 00:42] LABS: Bacteria Urine None Seen (None Seen); RBC Urine >20 /HPF (0-2); UACC Culture Trigger YES; WBC Urine 21-50 /HPF (0-5)
--- NOTE | 2024-09-01 02:55 | PC.NURSE ---
pt sleeping no sign of distress
[2024-09-01] MEDS: Piperacillin Sodium/Tazobactam 3.375 GM in 0.9 % Sodium Chloride 50 ML IV ×4 (04:20→22:01)
[2024-09-01] MEDS: 0.9 % Sodium Chloride Flush 3 ML SYRINGE IVFLUSH ×4 (04:23→22:02)
--- NOTE | 2024-09-01 05:21 | PC.NURSE ---
medicated per mar, pt sleeping no sign of distress.
[2024-09-01 06:12] LABS: Hematocrit 28.8 % (37.0-47.0); Hemoglobin 9.5 g/dl (12.0-16.0); Mean Corpuscular Hemoglobin 26.8 pg (27.0-33.0); Mean Corpuscular Volume 81.4 fL (80.0-98.0); Mean Platelet Volume 10.6 fL (9.4-12.3); Platelet Count 215 X10*3/uL (160-400); Red Blood Count 3.54 X10*6/uL (4.20-5.50); Red Cell Distribution Width 18.2 % (11.0-16.0); White Blood Count 10.9 X10*3/uL (4.8-10.8)
[2024-09-01 06:22] LABS: Anion Gap 14 (12-20); Blood Urea Nitrogen 28 mg/dL (9-16); Calcium 8.8 mg/dL (8.4-10.2); Carbon Dioxide 17 mmol/L (22-29); Chloride 112 mmol/L (96-108); Creatinine Clr Calc Pharmacy 41.8; Estimated Glomerular Filt Rate > 60; Glucose Random 116 mg/dL (60-115); Potassium 4.2 mmol/L (3.3-5.1); Sodium 139 mmol/L (135-145)
[2024-09-01] MEDS: Acetaminophen 325 MG TABLET 650 MG PO (07:24)
--- NOTE | 2024-09-01 07:52 | HO.PM.IMPN ---
Subjective Subjective Date of Service: 09/01/24 Interval History: f/u on colitis and weakness intervalL still with pain but overall better than yesterday Physical Exam Vital Signs: Vital Signs: Last Vital Signs Temp 97.5 F 09/01/24 06:45 Pulse 75 09/01/24 06:45 Resp 16 09/01/24 06:45 BP 153/75 H 09/01/24 06:45 Pulse Ox 97 09/01/24 06:45 O2 Del Method Room Air 09/01/24 03:05 BMI result Body Mass Index 18.9 Const: Other: General: AOx3, no acute distress Resp: CTA bilaterally CVS: S1, S2, RRR GI: +BS, no distention, left-sided tenderness. No rebound tenderness. No RUQ tenderness. Negative Robin's sign. Skin: Warm, dry Neuro: Cranial nerves II-XII grossly intact bilaterally. Motor grossly intact bilaterally Extremities: No edema Psych: Appropriate affect Objective Data Active Medications Acetaminophen (Acetaminophen 325 Mg Tablet) 650 mg PO Q6H PRN PRN Reason: Pain, Mild 1-3,fever,headache Last Admin: 09/01/24 07:24 Dose: 650 mg Documented By: JACQUES Calcium Carbonate (Calcium Carbonate 750 Mg Tab.Chew) 750 mg PO Q4H PRN PRN Reason: Heartburn Enoxaparin Sodium (Enoxaparin Sodium 30 Mg/0.3 Ml Syringe) 30 mg SUBCUT Q24H COUNT INCLUDES THE [facility] Last Admin: 08/31/24 21:07 Dose: Not Given Documented By: KYLEE Non-Admin Reason: Patient Refused Piperacillin Sod/Tazobactam (Sod 3.375 gm/ Sodium Chloride) 50 mls @ 100 mls/hr IV Q6H COUNT INCLUDES THE [facility] Last Infusion: 09/01/24 06:27 Dose: Infused Documented By: MERVAT Magnesium Hydroxide (Milk Of Magnesia 30 Ml Oral.Susp) 30 ml PO DAILY PRN PRN Reason: Constipation Melatonin (Melatonin 3 Mg Tablet) 6 mg PO BEDTIME PRN PRN Reason: Insomnia Ondansetron HCl (Ondansetron Hcl 4 Mg/2 Ml Vial) 4 mg IVPUSH Q8H PRN PRN Reason: Nausea and Vomiting Sodium Chloride (0.9 % Sodium Chloride Flush 3 Ml Syringe) 3 ml IVFLUSH QSHIFT COUNT INCLUDES THE [facility] Last Admin: 09/01/24 07:21 Dose: 3 ml Documented By: JACQUES Labs 09/01/24 05:13 09/01/24 05:13 Labs: Laboratory Results - last 24 hr 08/31/24 08/31/24 09/01/24 13:21 16:33 00:31 MCV 81.0 MCH 26.7 L MCHC 32.9 RDW 18.6 H Plt Count 250 MPV 10.3 Immature Gran % (Auto) Cancelled Neut % (Auto) Cancelled Lymph % (Auto) Cancelled [place] % (Auto) Cancelled Eos % (Auto) Cancelled Baso % (Auto) Cancelled Lymph # (Auto) Cancelled [place] # (Auto) Cancelled Eos # (Auto) Cancelled Baso # (Auto) Cancelled Abs Immat Gran (auto) Cancelled Absolute Neuts (auto) Cancelled Absolute Nucleated RBC 0.000 Nucleated RBC % (auto) 0.0 Neutrophils % (Manual) 82 H Band Neutrophils % 10 H Lymphocytes % (Manual) 4 L Monocytes % (Manual) 2 Eosinophils % (Manual) 1 Metamyelocytes % 1 Abs Neuts (Manual) 18.7 H Lymphocytes # (Manual) 0.8 L Monocytes # (Manual) 0.4 Eosinophils # (Manual) 0.2 Metamyelocytes # 0.2 Toxic Vacuolation PRESENT Dohle Bodies PRESENT Platelet Estimate NORMAL Large Platelets PRESENT Plt Morphology Comment NOTED RBC Morphology NOTED Ovalocytes 1+ (5-14) Acanthocytes (Spur) 1+ (0-2) Anion Gap 14 Estim Creat Clear Calc 30.4 Estimated GFR 49 Random Glucose 90 Lactic Acid 1.5 Calcium 9.2 Magnesium 2.6 Total Bilirubin 0.5 Direct Bilirubin 0.2 AST 18 ALT 7 Alkaline Phosphatase 87 Total Protein 7.0 Albumin 3.6 Lipase 16 Urine Color Yellow Urine Appearance Cloudy Urine pH 5.0 Ur Specific Gage >= 1.030 H Urine Protein 30 (1+) H Urine Glucose (UA) Negative Urine Ketones 15 Urine Blood Large (3+) H Urine Nitrite Negative Ur Leukocyte Esterase Moderate (2+) H Urine RBC >20 H Urine WBC 21-50 H Ur Squamous Epith Cells 6-10 Urine Bacteria None Seen Hyaline Casts 3-5 Influenza Type A (PCR) NEGATIVE Influenza Type B (PCR) NEGATIVE RSV RNA Qual (PCR) NEGATIVE SARS-CoV-2 RNA (RT-PCR) NEGATIVE 09/01/24 05:13 MCV 81.4 MCH 26.8 L MCHC 33.0 RDW 18.2 H Plt Count 215 MPV 10.6 Immature Gran % (Auto) Neut % (Auto) Lymph % (Auto) [place] % (Auto) Eos % (Auto) Baso % (Auto) Lymph # (Auto) [place] # (Auto) Eos # (Auto) Baso # (Auto) Abs Immat Gran (auto) Absolute Neuts (auto) Absolute Nucleated RBC 0.000 Nucleated RBC % (auto) 0.0 Neutrophils % (Manual) Band Neutrophils % Lymphocytes % (Manual) Monocytes % (Manual) Eosinophils % (Manual) Metamyelocytes % Abs Neuts (Manual) Lymphocytes # (Manual) Monocytes # (Manual) Eosinophils # (Manual) Metamyelocytes # Toxic Vacuolation Dohle Bodies Platelet Estimate Large Platelets Plt Morphology Comment RBC Morphology Ovalocytes Acanthocytes (Spur) Anion Gap 14 Estim Creat Clear Calc 41.8 Estimated GFR > 60 Random Glucose 116 H Lactic Acid Calcium 8.8 Magnesium Total Bilirubin Direct Bilirubin AST ALT Alkaline Phosphatase Total Protein Albumin Lipase Urine Color Urine Appearance Urine pH Ur Specific Gage Urine Protein Urine Glucose (UA) Urine Ketones Urine Blood Urine Nitrite Ur Leukocyte Esterase Urine RBC Urine WBC Ur Squamous Epith Cells Urine Bacteria Hyaline Casts Influenza Type A (PCR) Influenza Type B (PCR) RSV RNA Qual (PCR) SARS-CoV-2 RNA (RT-PCR) Assessment and Plan (1) Colitis: Status: Acute (2) Leukocytosis: Status: Acute (3) Bandemia: Status: Acute (4) Weakness: Status: Acute Plan Pt is an 84-year-old female with a PMH significant for?HTN, persistent AFib s/p ablation x4, Watchman, and pacemaker in place, and GERD who presents to the ED with?diarrhea, abdominal pain, fatigue, and generalized weakness x4 days. Admitted for colitis, weakness Acute transverse colon colitis with bandemia, diarrhea and weakness, no sepsis check GI panel, Cdif empiric Zosyn started 08/31 GI consult Liquid diet and advance as tolerated IVF with LR ?CBD dilation CT showed mild dilation of CBD with no definitive choledocholithiasis LFTs WNL, no N/V, denies RUQ tenderness, negative Robin's sign No further workup or imaging indicated at this time Consider abdominal ultrasound if pt experiences RUQ pain Mild hyperchloremic metabolic acidosis, for NS, diarrhea IVF with LR and repeat later Persistent AFib S/p Watchman and pacemaker Continue diltiazem HTN Continue losartan and Diltiazem Peripheral neuropathy Continue gabapentin GERD Continue PPI Full Code Attending:?Dr. Fields DVT Prophylaxis: Lovenox Pt will require a hospitalization of at least two nights for treatment of?generalized weakness and bandemia in the setting of colitis. Given patient's significant leukocytosis and bandemia, they are at risk of significant deterioration without hospital level care for administration of empiric IV antibiotics, as well as PT consult. Quality Stroke Does the patient have a stroke diagnosis?: No VTE Prior VTE?: No VTE Risk Level:: Medical - moderate - high VTE Device Contraindication: Treatment Not Indicated VTE Drug Contraindication: N/A - Med Ordered
[2024-09-01] MEDS: Aspirin Enteric Coated 81 MG TABLET.DR PO (08:31)
[2024-09-01] MEDS: Losartan Potassium 25 MG TABLET PO (08:31)
[2024-09-01] MEDS: Gabapentin 100 MG CAPSULE PO ×2 (08:33→20:46)
[2024-09-01] MEDS: dilTIAZem HCL CD 180 MG CAP.ER.24H 360 MG PO (08:33)
[2024-09-01] MEDS: Escitalopram Oxalate 10 MG TABLET PO (08:34)
--- NOTE | 2024-09-01 09:16 | MHC.CLN ---
NUTRITION PATIENT IN ED. DIET=CLEAR LIQUIDS. BMI=18.9, UNDERWEIGHT. NUTRITIONAL ASSESSMENT TO BE COMPLETED UPON ADM TO UNIT.
[2024-09-01 09:36] LABS: CDiff Gene PCR NEGATIVE (Negative)
[2024-09-01] MEDS: Morphine Sulfate 2 MG/ML CARTRIDGE IVPUSH (13:05)
--- NOTE | 2024-09-01 14:28 | MHC.CM.PN ---
LIVES AT HOME WITH DOES NOT USE SERVICES DOES NOT USE DME HAS HCP AT HOME , COPY REQUESTED. [facility] DELIVERED PT INTERESTED IN SERVICES: REFERRAL PLACED FOR [facility]. DCP- HOME WITH [facility] FOR PT VIA OWN CAR.
--- NOTE | 2024-09-01 19:06 | PC.NURSE ---
This RN assumed pt care @ 1900. Pt a&ox4, no signs of distress. Pt sitting up in recliner. Pt requested and recliner, reclined. Pt denies pain d/t colitis. Reports neck pain that is chronic Plan of care ongoing.
[2024-09-01 22:31] LABS: Anion Gap 14 (12-20); Carbon Dioxide 19 mmol/L (22-29); Chloride 111 mmol/L (96-108); Potassium 3.7 mmol/L (3.3-5.1); Sodium 140 mmol/L (135-145)
[2024-09-02 03:40] VITALS: BP 148/69; PULSE 80; RESP 18; TEMP 36.3; O2SAT 98
[2024-09-02] MEDS: Piperacillin Sodium/Tazobactam 3.375 GM in 0.9 % Sodium Chloride 50 ML IV ×4 (03:55→21:59)
[2024-09-02] MEDS: Pantoprazole Sodium 20 MG TABLET.DR 40 MG PO (06:01)
[2024-09-02 06:05] LABS: Hematocrit 27.9 % (37.0-47.0); Mean Corpuscular HGB Conc 32.3 g/dl (31.0-35.0); Mean Corpuscular Hemoglobin 26.3 pg (27.0-33.0); Mean Corpuscular Volume 81.6 fL (80.0-98.0); Mean Platelet Volume 11.2 fL (9.4-12.3); Platelet Count 219 X10*3/uL (160-400); Red Blood Count 3.42 X10*6/uL (4.20-5.50); Red Cell Distribution Width 18.4 % (11.0-16.0); White Blood Count 13.2 X10*3/uL (4.8-10.8)
[2024-09-02 06:18] LABS: Anion Gap 10 (12-20); Blood Urea Nitrogen 20 mg/dL (9-16); Calcium 8.8 mg/dL (8.4-10.2); Carbon Dioxide 21 mmol/L (22-29); Chloride 115 mmol/L (96-108); Creatinine Clr Calc Pharmacy 43.4; Estimated Glomerular Filt Rate > 60; Glucose Random 96 mg/dL (60-115); Potassium 3.5 mmol/L (3.3-5.1); Sodium 142 mmol/L (135-145)
[2024-09-02 07:29] VITALS: BP 123/69; PULSE 73; RESP 16; TEMP 36.5; O2SAT 95
[2024-09-02] MEDS: Gabapentin 100 MG CAPSULE PO ×2 (07:58→20:12)
[2024-09-02] MEDS: Escitalopram Oxalate 10 MG TABLET PO (07:58)
[2024-09-02] MEDS: dilTIAZem HCL CD 180 MG CAP.ER.24H 360 MG PO (07:58)
[2024-09-02] MEDS: Losartan Potassium 25 MG TABLET PO (07:58)
[2024-09-02] MEDS: Aspirin Enteric Coated 81 MG TABLET.DR PO (07:58)
[2024-09-02] MEDS: 0.9 % Sodium Chloride Flush 3 ML SYRINGE IVFLUSH ×3 (08:00→22:03)
--- NOTE | 2024-09-02 08:34 | PM.DS ---
DS: Providers Provider Date of Service: 09/03/24 Date of admission: 08/31/24 20:21 Date of discharge: 09/03/24 Primary care physician: Bridgette Duffy MD DS: Diagnosis Discharge Diagnosis (1) Colitis: Status: Acute (2) Leukocytosis: Status: Acute (3) Bandemia: Status: Acute (4) Weakness: Status: Acute DS: Summary Hospital Course Hospital Course: Admission [facility] Complaint: Weakness and diarrhea Pt is an 84-year-old female with a PMH significant for?HTN, persistent AFib s/p ablation x4, Watchman, and pacemaker in place, and GERD who presents to the ED with?diarrhea, abdominal pain, fatigue, and generalized weakness x4 days. Pt initially experienced intractable diarrhea and left-sided abdominal pain for 2 days. Diarrhea mostly stopped 2 days ago, though had at least 1 more episode yesterday. Pt has been felt bloated, gassy, and ?horrible? with ?malaise? the past 2 days. No nausea or vomiting. Has been keeping up with fluids, but not eating anything solid. Pt denies sick contacts, no suspicious food. Denies chest pain/pressure, palpitations. No SOB or difficulty breathing. Pt has been in contact with PCP 3 times for symptoms the past 2 days. Eventually was directed to come to the ED for further evaluation. In the ED pt was hypertensive up to 140/66, vitals otherwise stable and WNL. Labs were significant for leukocytosis 20.3 and 10% bandemia, otherwise grossly unremarkable and around baseline for pt. Stable normocytic anemia of 10.7/32.5. No significant electrolyte abnormalities. Renal function baseline. Lactic acid WNL. Hepatic function WNL. Troponin WNL at 11.7. Lipase WNL. Tested negative for flu, COVID, RSV. CXR showed borderline cardiac enlargement with atrial appendage occlusion device, but no active pulmonary disease. CT of abdomen with findings suggestive of colitis of transverse and descending colon. Also showed mild dilation of common bile duct without definitive cholelithiasis. EKG demonstrated ventricular paced rhythm with underlying atrial flutter. Pt was treated with IVF, Solu-Medrol, and Zosyn. Pt will be admitted to the hospital for treatment and further evaluation of generalized weakness and bandemia in the setting of colitis. hosptial course: Pt is an 84-year-old female with a PMH significant for?HTN, persistent AFib s/p ablation x4, Watchman, and pacemaker in place, and GERD who presents to the ED with?diarrhea, abdominal pain, fatigue, and generalized weakness x4 days. Admitted for colitis, weakness. Colitis was treated that with IV Zosyn and has since improved, WBC is normal, she has no pain, diarrhea has resolved. Her diet has been advanced to regular diet which she is tolerating. She will thus be discharged with oral Ceftin and Falgyl for a total of 7 days. ?CBD dilation CT showed mild dilation of CBD with no definitive choledocholithiasis LFTs WNL, no N/V, denies RUQ tenderness, negative Robin's sign No further workup or imaging indicated at this time Mild hyperchloremic metabolic acidosis, for NS, and diarrhea--resolved with LR Persistent AFib S/p Watchman and pacemaker Continue diltiazem HTN Continue losartan and Diltiazem Peripheral neuropathy Continue gabapentin GERD Continue PPI Weakness, PT recommends home with services Time Attestation Discharge Coordination Time (in mins): 40 Quality: Safe Use of Opioids Does Pt have an Active Cancer Diagnosis on the Problem List?: No Quality: Stroke Does the patient have a stroke diagnosis?: No Physical Exam Vital Signs: Vital Signs: Last Vital Signs Temp 97.7 F 09/02/24 07:29 Pulse 73 09/02/24 07:29 Resp 16 09/02/24 07:29 BP 123/69 09/02/24 07:29 Pulse Ox 95 09/02/24 07:29 O2 Del Method Room Air 09/02/24 07:29 BMI result Body Mass Index 18.9 DS: Data Data Completed and Pending Labs on day of discharge: Laboratory Results - last 24 hr 09/01/24 09/01/24 09/02/24 08:13 22:16 05:36 WBC 13.2 H RBC 3.42 L Hgb 9.0 L Hct 27.9 L MCV 81.6 MCH 26.3 L MCHC 32.3 RDW 18.4 H Plt Count 219 MPV 11.2 Absolute Nucleated RBC 0.000 Nucleated RBC % (auto) 0.0 Sodium 140 142 Potassium 3.7 3.5 Chloride 111 H 115 H Carbon Dioxide 19 L 21 L Anion Gap 14 10 L BUN 20 H Creatinine 0.75 Estim Creat Clear Calc 43.4 Estimated GFR > 60 Random Glucose 96 Calcium 8.8 C. difficile Tox B Gene NEGATIVE Preliminary micro results at discharge 08/31/24 16:32 Blood Culture - Preliminary Blood - Venous No growth after 24 hours. 08/31/24 16:32 Blood Culture - Preliminary Blood - Venous No growth after 24 hours. Discharge Plan Discharge Anticipated Discharge Date/Time: 09/03/24 12:03 Patient Disposition: Home, Self-Care Discharge Diagnosis: Colitis, weakness Referrals: Bridgette Duffy MD [Primary Care Provider] - 1 Week Discharge Medications: New cefuroxime axetil 500 mg tablet 500 mg PO BID 4 Days Qty: 8 0RF metronidazole 500 mg tablet 500 mg PO BID Qty: 8 0RF Continued acetaminophen 325 mg tablet 975 mg PO Q6H PRN (Reason: pain) losartan 25 mg tablet 25 mg PO DAILY gabapentin 100 mg capsule 100 mg PO BID aspirin 81 mg Tablet,Delayed Release (Dr/Ec) 81 mg PO DAILY citalopram 20 mg tablet 20 mg PO DAILY diltiazem HCl 360 mg capsule,extended release 24hr 360 mg PO DAILY pantoprazole 40 mg tablet,delayed release (DR/EC) 40 mg PO DAILY@0630 Discharge Orders: Discharge Order (Routine); Ordered 09/03/24 Ordered By: Chris Franklin Diet: Advance to usual diet Activity on Discharge: As tolerated Stand Alone Forms: Patient Portal Discharge page Print Language: Estonian Care Plan Goals: recovery from colitis and weakness Health Concerns: colitis, weakness Plan of Treatment: take Ceftin and Flagyl to complete treatment for colitis follow up with your doctor in a week you will have home service with therapy Assessment: see above
--- NOTE | 2024-09-02 08:40 | HO.PM.IMPN ---
Subjective Subjective Date of Service: 09/02/24 Interval History: Has mild pain, no diarrhea Physical Exam Vital Signs: Vital Signs: Last Vital Signs Temp 97.7 F 09/02/24 07:29 Pulse 73 09/02/24 07:29 Resp 16 09/02/24 07:29 BP 123/69 09/02/24 07:29 Pulse Ox 95 09/02/24 07:29 O2 Del Method Room Air 09/02/24 07:29 BMI result Body Mass Index 18.9 General: AO X 3, no acute distress Resp: CTA bilateral CVS: S1,S2,RRR GI: +BS, NT, no distention Skin: No rash Neuro: motor grossly intact Psych: appropriate affect Objective Data Active Medications Acetaminophen (Acetaminophen 325 Mg Tablet) 650 mg PO Q6H PRN PRN Reason: Pain, Mild 1-3,fever,headache Last Admin: 09/01/24 07:24 Dose: 650 mg Documented By: JACQUES Aspirin (Aspirin Enteric Coated 81 Mg Tablet.Dr) 81 mg PO DAILY [facility] Last Admin: 09/02/24 07:58 Dose: 81 mg Documented By: MAURA Calcium Carbonate (Calcium Carbonate 750 Mg Tab.Chew) 750 mg PO Q4H PRN PRN Reason: Heartburn Diltiazem HCl (Diltiazem Hcl Cd 180 Mg Cap.Er.24h) 360 mg PO DAILY [facility]; Protocol Last Admin: 09/02/24 07:58 Dose: 360 mg Documented By: MAURA Enoxaparin Sodium (Enoxaparin Sodium 30 Mg/0.3 Ml Syringe) 30 mg SUBCUT Q24H [facility] Last Admin: 09/01/24 20:49 Dose: Not Given Documented By: SHAW Non-Admin Reason: Patient Refused Escitalopram Oxalate (Escitalopram Oxalate 10 Mg Tablet) 10 mg PO DAILY [facility] Last Admin: 09/02/24 07:58 Dose: 10 mg Documented By: MAURA Gabapentin (Gabapentin 100 Mg Capsule) 100 mg PO BID [facility] Last Admin: 09/02/24 07:58 Dose: 100 mg Documented By: MAURA Piperacillin Sod/Tazobactam (Sod 3.375 gm/ Sodium Chloride) 50 mls @ 100 mls/hr IV Q6H [facility] Last Infusion: 09/02/24 04:25 Dose: Infused Documented By: SHAW Losartan Potassium (Losartan Potassium 25 Mg Tablet) 25 mg PO DAILY [facility]; Protocol Last Admin: 09/02/24 07:58 Dose: 25 mg Documented By: MAURA Magnesium Hydroxide (Milk Of Magnesia 30 Ml Oral.Susp) 30 ml PO DAILY PRN PRN Reason: Constipation Melatonin (Melatonin 3 Mg Tablet) 6 mg PO BEDTIME PRN PRN Reason: Insomnia Morphine Sulfate (Morphine Sulfate 2 Mg/Ml Cartridge) 2 mg IVPUSH Q6H PRN; Protocol PRN Reason: Pain, Severe (Pain Scale 7-10) Last Admin: 09/01/24 13:05 Dose: 2 mg Documented By: JACQUES Ondansetron HCl (Ondansetron Hcl 4 Mg/2 Ml Vial) 4 mg IVPUSH Q8H PRN PRN Reason: Nausea and Vomiting Pantoprazole Sodium (Pantoprazole Sodium 20 Mg Tablet.Dr) 40 mg PO DAILY@0630 [facility] Last Admin: 09/02/24 06:01 Dose: 40 mg Documented By: SHAW Sodium Chloride (0.9 % Sodium Chloride Flush 3 Ml Syringe) 3 ml IVFLUSH QSHIFT [facility] Last Admin: 09/02/24 08:00 Dose: 3 ml Documented By: MAURA Labs 09/02/24 05:36 09/02/24 05:36 Labs: Laboratory Results - last 24 hr 09/01/24 09/01/24 09/02/24 08:13 22:16 05:36 MCV 81.6 MCH 26.3 L MCHC 32.3 RDW 18.4 H Plt Count 219 MPV 11.2 Absolute Nucleated RBC 0.000 Nucleated RBC % (auto) 0.0 Anion Gap 14 10 L Estim Creat Clear Calc 43.4 Estimated GFR > 60 Random Glucose 96 Calcium 8.8 C. difficile Tox B Gene NEGATIVE Microbiology Microbiology Results: Microbiology 08/31/24 16:32 Blood Culture - Preliminary Blood - Venous No growth after 24 hours. 08/31/24 16:32 Blood Culture - Preliminary Blood - Venous No growth after 24 hours. Assessment and Plan (1) Colitis: Status: Acute Plan Pt is an 84-year-old female with a PMH significant for?HTN, persistent AFib s/p ablation x4, Watchman, and pacemaker in place, and GERD who presents to the ED with?diarrhea, abdominal pain, fatigue, and generalized weakness x4 days. Admitted for colitis, weakness Acute transverse colon colitis with bandemia, diarrhea and weakness, no sepsis--Cdif is negative. She has been treated with IVF, IV Zosyn, WBC was initially low but has increased to 13 from 10 owing from steroid that was given in the emergency room. Presently diarrhea has resolved. her diet has been advanced and tolerating, defering GI consult for the time being. She will be transition to oral Ceftin and Flagyl for a total of 7 days of antibioticcs. ?CBD dilation CT showed mild dilation of CBD with no definitive choledocholithiasis LFTs WNL, no N/V, denies RUQ tenderness, negative Robin's sign No further workup or imaging indicated at this time Mild hyperchloremic metabolic acidosis, for NS, and diarrhea--improved with LR Persistent AFib S/p Watchman and pacemaker Continue diltiazem HTN Continue losartan and Diltiazem Peripheral neuropathy Continue gabapentin GERD Continue PPI Weakness, PT recommends home with services DVT prophylaxis lovenox Quality Stroke Does the patient have a stroke diagnosis?: No VTE Prior VTE?: No VTE Risk Level:: Medical - moderate - high VTE Device Contraindication: Treatment Not Indicated VTE Drug Contraindication: N/A - Med Ordered
[2024-09-02] MEDS: Acetaminophen 325 MG TABLET 650 MG PO (14:27)
[2024-09-02 15:37] VITALS: BP 110/58; PULSE 77; RESP 16; TEMP 36.1; O2SAT 98
[2024-09-02 19:49] VITALS: BP 121/57; PULSE 72; RESP 18; TEMP 36.3; O2SAT 98
[2024-09-03 03:16] VITALS: BP 120/64; PULSE 70; RESP 16; TEMP 36.2; O2SAT 96
[2024-09-03] MEDS: Piperacillin Sodium/Tazobactam 3.375 GM in 0.9 % Sodium Chloride 50 ML IV ×2 (03:58→10:19)
[2024-09-03] MEDS: Pantoprazole Sodium 20 MG TABLET.DR 40 MG PO (05:55)
[2024-09-03 07:14] LABS: Hematocrit 27.9 % (37.0-47.0); Hemoglobin 9.2 g/dl (12.0-16.0); Mean Corpuscular Hemoglobin 26.7 pg (27.0-33.0); Mean Corpuscular Volume 81.1 fL (80.0-98.0); Mean Platelet Volume 10.5 fL (9.4-12.3); Platelet Count 197 X10*3/uL (160-400); Red Blood Count 3.44 X10*6/uL (4.20-5.50); Red Cell Distribution Width 18.4 % (11.0-16.0); White Blood Count 6.9 X10*3/uL (4.8-10.8)
[2024-09-03 07:26] VITALS: BP 135/71; PULSE 73; RESP 16; TEMP 36.1; O2SAT 96
[2024-09-03 07:36] LABS: Anion Gap 9 (12-20); Blood Urea Nitrogen 16 mg/dL (9-16); Calcium 8.5 mg/dL (8.4-10.2); Carbon Dioxide 22 mmol/L (22-29); Chloride 115 mmol/L (96-108); Creatinine Clr Calc Pharmacy 40.7; Estimated Glomerular Filt Rate > 60; Glucose Random 82 mg/dL (60-115); Potassium 3.3 mmol/L (3.3-5.1); Sodium 143 mmol/L (135-145)
[2024-09-03] MEDS: Losartan Potassium 25 MG TABLET PO (08:20)
[2024-09-03] MEDS: Gabapentin 100 MG CAPSULE PO (08:20)
[2024-09-03] MEDS: Escitalopram Oxalate 10 MG TABLET PO (08:20)
[2024-09-03] MEDS: dilTIAZem HCL CD 180 MG CAP.ER.24H 360 MG PO (08:20)
[2024-09-03] MEDS: Aspirin Enteric Coated 81 MG TABLET.DR PO (08:20)
[2024-09-03] MEDS: 0.9 % Sodium Chloride Flush 3 ML SYRINGE IVFLUSH (08:23)
--- NOTE | 2024-09-03 12:08 | P.F2F_ITS ---
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 Reason homebound: fall risk related to blood pressure changes Homebound supporting statement: homebound due to weakness from hospitalizatioh and diarrhea, and therefore needs the assitance of another person Certification: Based on the above findings, I certify that this patient is confined to the home and needs intermittent retirement care, physical therapy and/or speech therapy, or continues to need occupational therapy. The patient is under my care, and I have initiated the establishment of the plan of care. The patient will be followed by a physician who will periodically review the plan of care. Time Spent With Patient Time: Total time managing care of this patient today ____ minutes.
--- NOTE | 2024-09-03 12:15 | MHC.CM.PN ---
Patient medically cleared for dc home w/ new [facility] for SN/PT services. Private transport.
[2024-09-03 12:30] VITALS: BP 106/59; PULSE 71; RESP 16; TEMP 36.5; O2SAT 97
== END 2024-09-03 13:22 | disposition home health service (06) | DRG 392 ==
LOC: HO.ED 18:38 → HO.EDOVER 20:38 → HO.S3 09-01 19:25
PROVIDERS: Physician Assistant Medical; Admitting Provider Student in an Organized Health Care Education/Training Program; Emergency Provider Emergency Medicine; PCP Family Medicine; Visit Provider Internal Medicine
DX: K52.9 Noninfective gastroenteritis and colitis, unspecified (principal); I48.19 Other persistent atrial fibrillation; E87.20 Acidosis, unspecified; I10 Essential (primary) hypertension; K83.8 Other specified diseases of biliary tract; G62.9 Polyneuropathy, unspecified; K21.9 Gastro-esophageal reflux disease without esophagitis; Z20.822 Contact with and (suspected) exposure to COVID-19; Z95.0 Presence of cardiac pacemaker; Z95.810 Presence of automatic (implantable) cardiac defibrillator; Z79.82 Long term (current) use of aspirin; Z79.899 Other long term (current) drug therapy
CPT/HCPCS: 0241U; 36415; 71045; 74160; 80048; 80051; 80076; 81001; 83605; 83690; 83735; 84484; 85007; 85027; 87040; 87086; 87493; 93005; 97161; 99285; J2270; J2543; J2919; Q9967

== ENCOUNTER → 2024-08-31 13:06 | Outpatient (BNV) | payer MEDICARE, SELFPAY | PROVIDERS: Emergency Provider Emergency Medicine; PCP Family Medicine; Visit Provider Internal Medicine | DX: I49.01 Ventricular fibrillation (principal) | CPT/HCPCS: 93010 ==

== ENCOUNTER → 2024-08-31 16:01 | Outpatient (BNV) | payer MEDICARE, SELFPAY | PROVIDERS: Emergency Provider Emergency Medicine; PCP Family Medicine; Visit Provider Radiology Diagnostic Radiology | DX: N20.0 Calculus of kidney (principal); R05.9 Cough, unspecified | CPT/HCPCS: 71045 ==

== ENCOUNTER → 2024-08-31 20:21 | Outpatient (BNV) | payer MEDICARE, SELFPAY | PROVIDERS: Admitting Provider Student in an Organized Health Care Education/Training Program; Emergency Provider Emergency Medicine; PCP Family Medicine; Visit Provider Internal Medicine | DX: K52.9 Noninfective gastroenteritis and colitis, unspecified (principal); D72.829 Elevated white blood cell count, unspecified; D72.825 Bandemia; R53.1 Weakness | CPT/HCPCS: 99232; 99239 ==

== ENCOUNTER 2024-11-22 12:55 | Emergency (ER) | payer MEDICARE, SELFPAY ==
--- NOTE | ~2024-11-22 | CT_ITS ---
EXAMINATION: CT ABDOMEN PELVIS WITHOUT IV CONTRAST HISTORY: renal colic COMPARISON: Comparison is made with the prior examination dated 08/31/2024. TECHNIQUE: CT scan of the abdomen and pelvis was performed without contrast using standard departmental protocol. Coronal and sagittal reformatted images were generated and reviewed. Oral contrast material was not administered per department protocol. This CT exam was performed with one or more of the following dose reduction techniques: automated exposure control, adjustment of the mA and/or kV according to patient size, use of iterative reconstruction technique. DLP: 283 mGy-cm FINDINGS: LOWER CHEST: The visualized lung bases are clear. There is no pleural effusion. CARDIOVASCULATURE: The heart is normal in size. There is no pericardial effusion. LIVER: The liver is normal in size and contour. The liver has an unremarkable unenhanced appearance. GALLBLADDER / BILE DUCTS: The gallbladder is unremarkable. There is no intra or extrahepatic biliary ductal dilatation. SPLEEN: The spleen is normal in size and has an unremarkable unenhanced appearance. PANCREAS: The pancreas has an unremarkable unenhanced appearance. ADRENAL GLANDS: Unremarkable. KIDNEYS/RETROPERITONEUM: There is moderate right hydronephrosis secondary to a 10 mm UPJ calculus. Smaller nonobstructing right renal calculi are noted measuring up to 5 mm in size. Again seen is a 14 mm calcification in the left renal pelvis with moderate hydronephrosis. Additional punctate nonobstructing left renal calculi are also noted. LYMPH NODES: No retroperitoneal lymphadenopathy is identified in the abdomen or pelvis. VASCULATURE: The abdominal aorta demonstrates atherosclerotic calcification, but is normal in caliber. MESENTERY/PERITONEUM: No free fluid. No masses. There is no free intraperitoneal gas. STOMACH: The stomach is collapsed, limiting evaluation. SMALL BOWEL: The small bowel is normal in caliber. COLON: There is a large amount of stool throughout the colon. APPENDIX: The appendix is not seen, however no inflammatory changes are seen adjacent to the cecum. URINARY BLADDER/PELVIC ORGANS: The urinary bladder is unremarkable. The patient is status post hysterectomy. BONES / SOFT TISSUES: Again seen is moderate spondylolisthesis of L4 on L5. CT/CT abdomen pelvis wo IV con IMPRESSION: 1. Moderate right hydronephrosis secondary to a 10 mm UPJ calculus. 2. Again seen is a 14 mm calculus in the left renal pelvis with moderate hydronephrosis. Additional bilateral nonobstructing renal calculi are noted as described. 3. Large amount of stool throughout the colon. Electronically signed by: Aba Dominguez MD 11/22/2024 03:53 PM EDT
--- NOTE | ~2024-11-22 | XR_ITS ---
EXAMINATION: XR LUMBOSACRAL SPINE CLINICAL INFORMATION: right lower back pain atraumatic COMPARISON: CT from August 31, 2024 TECHNIQUE: Three views of the lumbosacral spine. FINDINGS: Moderate vascular calcifications are present in the abdominal aorta. Metallic coils project over the right hemipelvis. 2 dense calcifications project right of the L2-3 level and a large calcification projects left of L1-2 disc space consistent with renal stones that were previously described on CT August 31, 2024. The larger stone on the right measuring 7 x 12 mm appears more inferior than on the prior CT and may have progressed into the ureteropelvic junction or proximal ureter. There are 5 nonrib-bearing lumbar sinus. There is 14 degrees dextroscoliosis. T12-L1: Unremarkable. L1-2: There is mild retrolisthesis. L2-3: There is grade 1 retrolisthesis and mild space narrowing. There is facet osteophyte formation. There is sclerosis and mild loss of height involving superior endplate of L3 that appears new since the prior CT. L3-4: There is mild disc space narrowing and facet sclerosis with osteophyte. There is chronic biconcave mild loss of height of the superior endplate of L3-4. L4-5: There is grade 1 to grade 2 anterolisthesis and moderate loss of disc height facet sclerosis and osteophytes. L5-S1: Unremarkable. XR/XR lumbar spine 2-3V IMPRESSION: Bilateral renal calculi. The larger stone on the right that measures 7 x 12 mm appears more caudal and on the prior examination and may have progressed into the proximal ureter. Mild superior endplate compression fracture of L3 is new since August 31, 2024. Multilevel degenerative disc disease and facet osteoarthritis. Electronically signed by: Aquilino Duenas MD 11/22/2024 01:39 PM EDT
[2024-11-22 13:00] VITALS: BP 122/44; PULSE 74; RESP 16; TEMP 36.8; O2SAT 98; BMI 16.7
--- NOTE | 2024-11-22 13:02 | ED.GENADULT ---
HPI - General Adult General Chief complaint: Abdominal Pain Stated complaint: R Flank Pain S/P Surgery Time Seen by Provider: 11/22/24 14:13 Source: patient Mode of arrival: ambulatory Limitations: no limitations History of Present Illness ED Provider: HPI narrative: 84-year-old woman presenting with right flank pain and hematuria, history of kidney stones, history of laparoscopic hernia repair. Had an episode of nausea and vomiting some days ago that she felt may have exacerbated her symptoms, no fevers or chills no vaginal bleeding no ongoing chest pain or shortness of breath. Here with her . Related Data Home Medications ?Medication ?Instructions ?Recorded ?Confirmed citalopram 20 mg tablet 20 mg PO DAILY 10/29/23 08/31/24 diltiazem HCl 360 mg 360 mg PO DAILY 10/29/23 08/31/24 capsule,extended release 24 hr pantoprazole 40 mg tablet,delayed 40 mg PO DAILY@0630 10/29/23 08/31/24 release acetaminophen 325 mg tablet 975 mg PO Q6H PRN pain 08/31/24 08/31/24 aspirin 81 mg tablet,delayed 81 mg PO DAILY 08/31/24 08/31/24 release gabapentin 100 mg capsule 100 mg PO BID 08/31/24 08/31/24 losartan 25 mg tablet 25 mg PO DAILY 08/31/24 08/31/24 Previous Rx's ?Medication ?Instructions ?Recorded cefuroxime axetil 500 mg tablet 500 mg PO BID 4 days #8 tabs 09/03/24 metronidazole 500 mg tablet 500 mg PO BID #8 tabs 09/03/24 cephalexin 500 mg capsule 500 mg PO BID 6 days #12 caps 11/22/24 Allergies Allergy/AdvReac Type Severity Reaction Status Date / Time Amoxicillin / Clavulanate Allergy Nausea Uncoded 11/22/24 13:01 Review of Systems Constitutional: Constitutional: Reports as per [facility] Past Medical History Medical History (Updated 11/22/24 @ 16:40 by Delroy Smith DO) HTN (hypertension) GERD (gastroesophageal reflux disease) Persistent atrial fibrillation Surgical History History of surgery on left wrist Social History Social History Household Members: Spouse Housing: Condominium Do you presently have visiting nurse or other home services: No Alcohol intake: former Patient Tobacco Use Status: Former Tobacco user Smoked in Last 30 Days: No Use of substances other than those prescribed or required for medical reasons: No Advance Directives: No Advance Directives Information Provided: Yes service: No Current occupational status: retired Current occupation: right hand dominant Physical Exam ED Vital Signs: Vital Signs - 24 hr 11/22/24 13:00 11/22/24 14:00 Temperature 98.2 F 97.6 F Pulse Rate 74 84 Respiratory Rate 16 16 Blood Pressure 122/44 L 127/63 Pulse Oximetry 98 97 Oxygen Delivery Method Room Air Room Air BMI result Body Mass Index 16.7 Const Other: Gen: ?Overall well-appearing patient HEENT: PERRLA, EOMI, MMM, Neck: Supple, no LAD CV: RRR, no obvious murmurs appreciated Resp: ?No wheezing rales rhonchi no stridor moving air well Abd: ?Bowel sounds are present, no tenderness no rebound no rigidity, no CVA tenderness, well-healed scars from laparoscopic surgery. MSK: FROM, strength 5/5 all extremities Skin: Warm, dry, intact, Neuro: ?Alert and oriented x3, moving upper and lower extremities symmetrically, no obvious facial asymmetry noted Course Course Course Narrative: 11/22/24 1303 ISSAC Yap This is a Rapid Medical Examination (RME) performed by Shorty Kidd PA-C in triage. Full HPI, ROS, assessment and treatment plan per primary provider in the Main ED. Hx: 84 yo F here for eval of intermittent right lower back pain x2-3 mo. works w/ ambulating, relieved with rest. no radiation. also reports feeling dizzy - states this is because she has not eaten. reports a few episodes of vomiting a few nights ago which has since resolved. reports urine color is dark. admits to constipation, last BM 3 days ago. Plan: labs, UA, xr Medical Decision Making Medical Decision Making MDM Narrative: X-rays reveal presence of renal stones possibly new ureter, with some arthritic changes in the back, we will obtain noncontrast CT think it is going to be more useful to predict if she would require further intervention, we will evaluate for renal insufficiency, UTI associated with kidney stones. Disposition to be determined. Reassuringly she is nonfebrile hemodynamically stable. Patient continues to be comfortable and asymptomatic she has a large right-sided UPJ stone 10 mm, contacting Dr. Grant, she may have a UTI , no RAMONA. Patient updated and we will determine disposition 17:00 patient will follow up with Dr. Grant on outpatient basis Differential Diagnosis Differential Diagnoses: The differential diagnosis associated with the presentation includes Renal colic, SBO, diverticulitis, appendicitis, musculoskeletal pain, Admission/Observation Consideration of admission/observation: Escalation of care including admission/observation considered Lab Data 11/22/24 13:29 11/22/24 13:29 Labs: Lab Results 11/22/24 11/22/24 Range/Units 13:29 15:36 WBC 12.2 H (4.8-10.8) X10*3/uL RBC 3.64 L (4.20-5.50) X10*6/uL Hgb 10.3 L (12.0-16.0) g/dl Hct 31.8 L (37.0-47.0) % MCV 87.4 (80.0-98.0) fL MCH 28.3 (27.0-33.0) pg MCHC 32.4 (31.0-35.0) g/dl RDW 17.1 H (11.0-16.0) % Plt Count 215 (160-400) X10*3/uL MPV 10.2 (9.4-12.3) fL Immature Gran % (Auto) 0.4 (0.0-0.4) % Neut % (Auto) 84.1 H (45-73) % Lymph % (Auto) 8.3 L (20-40) % [place] % (Auto) 6.8 (2-11) % Eos % (Auto) 0.2 (0-4) % Baso % (Auto) 0.2 (0-2) % Lymph # (Auto) 1.0 L (1.2-4.9) X10*3/uL [place] # (Auto) 0.8 (0.1-1.2) X10*3/uL Eos # (Auto) 0.0 (0.0-0.4) X10*3/uL Baso # (Auto) 0.0 (0.0-0.2) X10*3/uL Abs Immat Gran (auto) 0.05 H (0.00-0.03) X10*3/uL Absolute Neuts (auto) 10.2 H (2.0-8.3) x10*3/uL Absolute Nucleated RBC 0.000 (0.0-0.012) X10*3/uL Nucleated RBC % (auto) 0.0 (0.0-0.2) /100WBC Sodium 140 (135-145) mmol/L Potassium 3.8 (3.3-5.1) mmol/L Chloride 105 (96-108) mmol/L Carbon Dioxide 24 (22-29) mmol/L Anion Gap 15 (12-20) BUN 14 (9-16) mg/dL Creatinine 0.77 (0.5-1.4) mg/dL Estim Creat Clear Calc 39.8 Estimated GFR > 60 Random Glucose 101 (60-115) mg/dL Calcium 9.5 D (8.4-10.2) mg/dL Magnesium 1.9 (1.6-2.6) mg/dL Total Bilirubin 0.7 (0.0-1.0) mg/dL AST 16 (5-31) U/L ALT < 6 (0-31) U/L Alkaline Phosphatase 64 (39-117) U/L Total Protein 6.8 (6.5-8.0) g/dL Albumin 3.9 (3.5-5.0) g/dL Lipase 10 (8-78) U/L Urine Color Yellow Urine Appearance Cloudy Urine pH 5.5 (5.0-9.0) Ur Specific [place] 1.015 (1.005-1.025) Urine Protein 100 (2+) H (Neg-Trace) mg/dL Urine Glucose (UA) Negative (Negative) mg/dL Urine Ketones 15 (Negative) mg/dL Urine Blood Large (3+) H (Negative) Urine Nitrite Negative (Negative) Ur Leukocyte Esterase Large (3+) H (Negative) Urine RBC >20 H (0-2) /HPF Urine WBC >50 H (0-5) /HPF Ur Squamous Epith Cells 0-2 (0-2) /HPF Urine Bacteria 1+ (None Seen) Hyaline Casts 0-2 (0-2) /LPF Discharge Plan Discharge Clinical Impression: Obstruction of left ureteropelvic junction (UPJ) due to stone Patient Disposition: Home, Self-Care Additional Instructions: Please follow up with Dr. Grant, he told me that the nurses we will typically follow up with [facility] within 48 hours so they have you information but I will provide Dr. Grant's information as well. In the meanwhile you can use ibuprofen 400 mg every 6 hours needed for pain, Tylenol 975 mg every 6 hours for additional pain control, and I will start you on antibiotics as you may have a urinary tract infection in the setting of a large kidney stone. Any worsening issues or concerns such as fevers chills inability to tolerate oral liquids worsening pain not improved with medications that are [id number] come back to the ER. First antibiotics given in the ER for the day thereafter continue starting tomorrow. Prescriptions: New cephalexin 500 mg capsule 500 mg PO BID 6 Days Qty: 12 0RF No Action acetaminophen 325 mg tablet 975 mg PO Q6H PRN (Reason: pain) losartan 25 mg tablet 25 mg PO DAILY gabapentin 100 mg capsule 100 mg PO BID aspirin 81 mg Tablet,Delayed Release (Dr/Ec) 81 mg PO DAILY cefuroxime axetil 500 mg tablet 500 mg PO BID 4 Days Qty: 8 0RF metronidazole 500 mg tablet 500 mg PO BID Qty: 8 0RF citalopram 20 mg tablet 20 mg PO DAILY diltiazem HCl 360 mg capsule,extended release 24hr 360 mg PO DAILY pantoprazole 40 mg tablet,delayed release (DR/EC) 40 mg PO DAILY@0630 Referrals: [facility] – [place] [facility] [Provider Group] Juan Grant MD [Physician] - Print Language: Yakut
[2024-11-22 13:33] LABS: MANUAL DIFF FLAG NO
[2024-11-22 13:35] LABS: Basophils Percent Auto 0.2 % (0-2); Eosinophils Percent Auto 0.2 % (0-4); Hematocrit 31.8 % (37.0-47.0); Hemoglobin 10.3 g/dl (12.0-16.0); Imm Gran Abs Auto 0.05 X10*3/uL (0.00-0.03); Imm Gran Pct Auto 0.4 % (0.0-0.4); Lymphocytes Percent Auto 8.3 % (20-40); Mean Corpuscular HGB Conc 32.4 g/dl (31.0-35.0); Mean Corpuscular Hemoglobin 28.3 pg (27.0-33.0); Mean Corpuscular Volume 87.4 fL (80.0-98.0); Mean Platelet Volume 10.2 fL (9.4-12.3); Monocytes Absolute Auto 0.8 X10*3/uL (0.1-1.2); Monocytes Percent Auto 6.8 % (2-11); Neutrophils Absolute Auto 10.2 x10*3/uL (2.0-8.3); Neutrophils Percent Auto 84.1 % (45-73); Platelet Count 215 X10*3/uL (160-400); Red Blood Count 3.64 X10*6/uL (4.20-5.50); Red Cell Distribution Width 17.1 % (11.0-16.0); White Blood Count 12.2 X10*3/uL (4.8-10.8)
--- OUTSIDE RECORDS SUMMARY | 2024-11-22 13:38 | XMS_ITS | Clinical Summary ---
Author Organization [address] [place] [address] [place] [phone] Phone Care Team Providers Care Joinery Patternmaker Name Role Phone Bridgette Duffy MD Primary Care Provider [phone] Allergies Active Allergy Reactions Criticality Noted Date Comments Amoxicillin-Pot Clavulanate Nausea And Vomiting 05/04/2022 Augmentin Clavulanic Acid 07/05/2024 Medications dilTIAZem (TIAZAC) 360 [...] mouth 1 (one) time each day. Active Wixela Inhub 500-50 mcg/dose diskus inhaler Inhale 1 puff by mouth 1 (one) time each day. Active loratadine (CLARITIN) 10 mg tablet Take 1 tablet (10 mg total) by mouth if needed. Active famotidine (PEPCID) 10 mg tablet Take 2 tablets (20 mg total) by mouth if needed for heartburn. Active gabapentin (NEURONTIN) 100 mg capsule Take 1 capsule (100 mg total) by mouth 3 (three) times a day. Active Active Problems Problem Noted Date Diagnosed Date Atrial tachycardia (CMS/HCC V24) 03/06/2024 Hematoma of rectus sheath 03/06/2024 Pacemaker lead failure, initial encounter 2023 Atrial flutter (CMS/HCC V24, CMS/HCC V28) 2021 Atrial fibrillation (CMS/HCC V24, CMS/HCC V28) 0 07/31/2020 Overview (07/05/2024): Atrial fibrillation status post [...] she agreed to have this done at [facility]. She will agree to continue anticoagulation and we can reevaluate whether that is necessary to continue long-term based on her [id number] score and any evidence of recurrent arrhythmia. She understands that he potential risks of venous access complications, cardiac perforation and tamponade, catheter related thrombus resulting in MS or stroke. He had Benign essential hypertension 07/31/2020 Overview (07/05/2024): Benign essential hypertension under excellent control. Last Assessment & Plan: Well rate controlled on current medications. Continue low-sodium diet. Supraventricular premature beats 07/31/2020 Overview (07/05/2024): Premature beats Supraventricular premature beats Encounters Date Type Department Care Team Description 10/29/[address] [facility] Lab [address] [facility] [place] [address] Connor Solitario MD Essential (primary) hypertension; Anemia, unspecified 10/26/2024 Lab Requisition [facility] Lab [address] [place] [phone] Connor Solitario MD Anemia, unspecified 10/24/2024 Lab Requisition [facility] Lab [address] [place] [phone] Connor Solitario MD Anemia, unspecified 10/23/2024 Lab Requisition [facility] Lab [address] [place] [phone] Connor Solitario MD Essential (primary) hypertension; Anemia, unspecified; Unspecified atrial fibrillation (CMS/HCC V24, CMS/HCC V28) 10/21/2024 Lab Requisition [facility] Lab [address] [place] [phone] Connor Solitario MD Essential (primary) hypertension; Unspecified atrial fibrillation (CMS/HCC V24, CMS/HCC V28); Anemia, unspecified 10/03/2024 12:40 PM EDT Office Visit [facility] [address] [place] [address] Isaura Shelby NP Atrial fibrillation, unspecified type (CMS/HCC V24, CMS/HCC V28) (Primary Dx) 09/11/2024 5:40 PM EDT Ancillary Procedure [facility] [address] [place] [phone] 08/22/2024 3:45 PM EST Ancillary Procedure [facility] [address] [place] [address] 08/22/2024 Telephone [facility] [address] [place] [address] Margarita Huang PA from Last 3 Months Immunizations Name Administration Dates Next Due Pfizer SARS-CoV-2 COVID-19, mRNA, LNP-S, preservative free 04/24/2021,08/16/2020,07/26/2020 Surgical History Surgery Date Site/Laterality Comments OTHER SURGICAL HISTORY 10/14/2015 PROCEDURE: DE ENDOSCOPY UPPER SMALL INTESTINE CATARACT EXTRACTION PROCEDURE: HISTORICAL CATARACT REMOVAL; COMMENT: 12/19/14, 10/31/14 OTHER SURGICAL HISTORY 01/19/2014 PROCEDURE: HISTORY OTHER BREAST LUMPECTOMY 11/14/2013 PROCEDURE: HISTORICAL BREAST LUMPECTOMY OTHER SURGICAL HISTORY 09/25/2011 PROCEDURE: PFT FULL (60 MINUTES) OTHER SURGICAL HISTORY 07/26/2009 PROCEDURE: DE ECHO TRANSTHORAC R-T 2D W/WO M-MODE REC COMP OTHER SURGICAL HISTORY 07/26/2009 PROCEDURE: OUTSIDE HOLTER MONITOR OTHER SURGICAL HISTORY 06/25/2008 PROCEDURE: PFT FULL (60 MINUTES) APPENDECTOMY PROCEDURE: HISTORICAL APPENDECTOMY HYSTERECTOMY PROCEDURE: HISTORICAL HYSTERECTOMY OTHER SURGICAL HISTORY 01/19/2014 PROCEDURE: HISTORY OTHER; COMMENT: [place] lymph node biopsy Medical History Medical History Date Comments Abdominal hernia DX:Abdominal he rnia Allergic rhinitis DX:Allergic rh initis Anxiety DX:Anxiety Asthma DX:Asthma Cancer of lower-outer quadra nt of female breast (CMS/HCC V24, CMS/HCC V28) DX:Cancer of lower-o uter quadrant of female breast (HCC) H/O sebaceous cyst [...] Sign Reading Time Taken Comments Blood Pressure 114/60 10/03/2024 12:53 PM EDT Pulse 71 10/03/2024 12:53 PM EDT Temperature - - Respiratory Rate - - Oxygen Saturation 99% 10/03/2024 12: 53 PM EDT Inhaled Oxygen Concentration - - Weight 48.4 kg (106 lb 12.8 oz) 025 12:53 PM EDT Height 152.4 cm (5') 10/03/2024 12:53 PM EDT Body Mass Index 20.86 10/03/2024 12:53 PM EDT Plan of Treatment Upcoming Encounters Date Type Department Care Team (Late st Contact Info) Description 01/03/2025 1:10 PM EDT Office Visit [facility] Card[facility] [address] [place] [phone] Isaura Shelby NP [address] [place] [address] 04/04/2025 3:00 PM EDT Ancillary Procedure [facility] [address] [place] [phone] Health Maintenance Due Date Last Done Comments Zoster Vaccines (1 of 2) 08/26/2015 07/01/2015 Cholesterol Screening (Lipid Panel) 05/24/2022 Depression Screening 05/24/2022 Falls Risk Assessment 05/24/2022 Medicare Annual Wellness Visit 05/24/2022 Osteoporosis Screening (Bone Density Screening) 05/24/2022 Social Influencers of Health Screening 05/24/2022 COVID-19 Vaccine (7 - Pfizer risk season) 2024 04/04/2024, 11/11/2022, 10/09/2021, Additional history exists Hypertension/CHF/CAD Annual BMP Blood Test 10/23/2025 10/23/2024, 10/21/2024, 08/28/2024 DTaP,Tdap,and Td Vaccines (3 - Td or Tdap) 09/21/2034 09/21/2024, 11/25/2016 Pneumococcal Vaccine: 50+ Years Completed 04/13/2016, 07/30/2012, 11/05/2006 RSV Immunization Adult Patients Completed 05/03/2023 Influenza Vaccine Completed 04/04/2024, , 04/09/2022, Additional [...] age to complete this topic Meningococcal B Vaccine Aged Out No l onger eligible based on patient's age to complete this topic RSV Immunization Patients Under 20 months Aged Out No longer eligible based on patient's age to complete this topic Varicella Vaccines Aged Out No longer eligible based on patient's age to complete this topic Medical Devices Implanted Type Area Exhibit Preparator Device Identifier Shelf Expiration Date Model / Serial / Lot Bsci-Crm [id number] Implanted: (Quantity not on file) Cardiac Pacemaker [employer] RHY[employer]M MGMT [id number] / [id number] / Device Clsur Watchman Flx Magda 27mm Bsci-Prnt [id number] Implanted:Qty : 1 on 06/03/2023 by Alexandro Llanes MD Left: Heart [employer] RAFAEL 03/01/2026 [id number] / / [id number] Description:Implanted in lef t atrial appendage. Procedures Procedure Name Priority Date/Time Associated Diagnosis Comments COMPLETE BLOOD COUNT Routine 10/26/2024 8:54 AM EDT Anemia, unspecified COMPLETE BLOOD COUNT Routine 10/25/2024 4:48 AM EDT Anemia, unspecified BASIC METABOLIC PANEL Routine 10/23/2024 9:01 AM EDT Essential (primary) hypertension Anemia, unspecified Unspecified atrial fibrillation (CMS/HCC V24, CMS/HCC V28) COMPLETE BLOOD COUNT Routine 10/23/2024 9:01 AM EDT Essential (primary) hypertension Anemia, unspecified Unspecified atrial fibrillation (CMS/HCC V24, CMS/HCC V28) COMPREHENSIVE METABOLIC PANEL Routine 10/21/2024 8:22 AM EDT Essential (primary) hypertension Unspecified atrial fibrillation (CMS/HCC V24, CMS/HCC V28) Anemia, unspecified COMPLETE BLOOD COUNT Routine 10/21/2024 8:22 AM EDT Essential (primary) hypertension Unspecified atrial fibrillation (CMS/HCC V24, CMS/HCC V28) Anemia, unspecified ECG 12-LEAD Routine 10/03/2024 4:23 PM EDT Atrial fibrillation, unspecified type (CMS/HCC V24, CMS/HCC V28) EXTERNAL CLINICAL LAB Routine 09/12/2024 10:47 AM EDT CARDIAC DEVICE CHECK- REMOTE- MURJ Routine 09/11/2024 5:36 PM EDT MAGNESIUM Routine 08/28/2024 1:13 PM EDT VT (ventricular tachycardia) (CMS/HCC V24, CMS/HCC V28) BASIC METABOLIC PANEL Routine 08/28/2024 1:13 PM EDT VT (ventricular tachycardia) (CMS/HCC V24, CMS/HCC V28) B-TYPE NATRIURETIC PEPTIDE Routine 08/28/2024 1:13 PM EDT VT (ventricular tachycardia) (CMS/HCC V24, CMS/HCC V28) CARDIAC DEVICE CHECK- REMOTE- MURJ Routine 08/22/2024 3:41 PM EST from Last 3 Months Results * (ABNORMAL) Complete blood count (10/26/2024 8:54 AM EDT) Only the most recent of4 resultswithin the time period is included. WBC 5.5 4.8 - 10.8 K/mcL LAB HEMETOLOGY METHOD 10/26/2024 10:23 AM [facility] RBC 3.00(L) 3.80 - 4.80 M/mcL LAB HEMETOLOGY METHOD 10/26/2024 10:23 AM [facility] Hemoglobin 8.1(L) 11.5 - 16.0 g/dL LAB HEMETOLOGY METHOD 10/26/2024 10:23 AM [facility] Hematocrit 26.8(L) 35.0 - 47.0 % LAB HEMETOLOGY METHOD 10/26/2024 10:23 AM [facility] MCV 90.8 79.0 - 98.0 FL LAB HEMETOLOGY METHOD 10/26/2024 10:23 AM [facility] MCH 27.5 27.0 - 32.0 pcg LAB HEMETOLOGY METHOD 10/26/2024 10:23 AM [facility] MCHC 30.2(L) 32.0 - 37.0 g/dL LAB HEMETOLOGY METHOD 10/26/2024 10:23 AM [facility] RDW 18.8(H) 11.0 - 15.0 % LAB HEMETOLOGY METHOD 10/26/2024 10:23 AM [facility] Platelets 320 130 - 400 K/mcL LAB HEMETOLOGY METHOD 10/26/2024 10:23 AM [facility] MPV 11.5(H) 7.0 - 11.0 FL LAB HEMETOLOGY METHOD 10/26/2024 10:23 AM [facility] NRBC 0.0 <1.0 % LAB HEMETOLOGY METHOD 10/26/2024 10:23 AM [facility] NRBC Absolute 0.00 <0.10 K/mcL LAB HEMETOLOGY METHOD 10/26/2024 10:23 AM EDT [facility] Blood Venous blood specimen / Unknown Venipuncture / Unknown 10/26/2024 8:54 AM EDT 10/26/2024 10:12 AM EDT Connor Solitario MD LAB BLOOD ORDERABLES Final Result [facility] [address] [place] [address], [place] [phone] * Basic metabolic panel (10/23/2024 9:01 AM EDT) Only the most recent of2 resultswithin the time period is included. Sodium 139 133 - 145 mmol/L LAB CHEMISTRY METHOD 10/23/2024 1:52 PM [facility] Potassium 4.1 3.5 - 5.5 mmol/L LAB CHEMISTRY METHOD 10/23/2024 1:52 PM [facility] Chloride 108 96 - 110 mmol/L LAB CHEMISTRY METHOD 10/23/2024 1:52 PM [facility] CO2 25 21 - 32 mmol/L LAB CHEMISTRY METHOD 10/23/2024 1:52 PM [facility] Anion Gap 6 3 - 11 LAB CHEMISTRY METHOD 10/23/2024 1:52 PM [facility] Glucose 93 70 - 100 mg/dL LAB CHEMISTRY METHOD 10/23/2024 1:52 PM [facility] BUN 11 5 - 25 mg/dL LAB CHEMISTRY METHOD 10/23/2024 1:52 PM [facility] Creatinine 0.71 0.50 - 1.10 mg/dL LAB CHEMISTRY METHOD 10/23/2024 1:52 PM [facility] eGFR 84 >=60 mL/min/1. 73m2 LAB CHEMISTRY METHOD 10/23/2024 1:52 PM T [facility] Comment:Calculation based on the??Chronic Kidney Disease Epidemiology Collaboration (CKD-EPI) equation refit??without adjustment for race. BUN/Creatinine Ratio 15.5 LAB CHEMISTRY METHOD 10/23/2024 1:52 PM T [facility] Calcium 9.0 8.5 - 10.5 mg/dL LAB CHEMISTRY METHOD 10/23/2024 1:52 PM T [facility] Blood Venous blood specimen / Unknown Venipuncture / Unknown 10/23/2024 9:01 AM EDT 10/23/2024 12:09 PM EDT Connor Solitario MD LAB BLOOD ORDERABLES Final Result [facility] [address] [place] [address], [place] [phone] * (ABNORMAL) Comprehensive metabolic panel (10/21/2024 8:22 AM EDT) Sodium 139 133 - 145 mmol/L LAB CHEMISTRY METHOD 10/21/2024 12:06 PM [facility] Potassium 4.3 3.5 - 5.5 mmol/L LAB CHEMISTRY METHOD 10/21/2024 12:06 PM [facility] Chloride 107 96 - 110 mmol/L LAB CHEMISTRY METHOD 10/21/2024 12:06 PM [facility] CO2 28 21 - 32 mmol/L LAB CHEMISTRY METHOD 10/21/2024 12:06 PM [facility] Anion Gap 4 3 - 11 LAB CHEMISTRY METHOD 10/21/2024 12:06 PM [facility] Glucose 105(H) 70 - 100 mg/dL LAB CHEMISTRY METHOD 10/21/2024 12:06 PM [facility] BUN 17 5 - 25 mg/dL LAB CHEMISTRY METHOD 10/21/2024 12:06 PM [facility] Creatinine 0.83 0.50 - 1.10 mg/dL LAB CHEMISTRY METHOD 10/21/2024 12:06 PM [facility] eGFR 70 >=60 mL/min/1. 73m2 LAB CHEMISTRY METHOD 10/21/2024 12:06 PM [facility] Comment:Calculation based on the??Chronic Kidney Disease Epidemiology Collaboration (CKD-EPI) equation refit??without adjustment for race. BUN/Creatinine Ratio 20.5 LAB CHEMISTRY METHOD 10/21/2024 12:06 PM [facility] Calcium 9.0 8.5 - 10.5 mg/dL LAB CHEMISTRY METHOD 10/21/2024 12:06 PM [facility] AST (SGOT) 14 10 - 42 unit/L LAB CHEMISTRY METHOD 10/21/2024 12:06 PM [facility] ALT (SGPT) 17 10 - 60 unit/L LAB CHEMISTRY METHOD 10/21/2024 12:06 PM [facility] Alkaline Phosphatase 64 42 - 121 unit/L LAB CHEMISTRY METHOD 10/21/2024 12:06 PM [facility] Total Protein 5.6(L) 6.0 - 8.0 g/dL LAB CHEMISTRY METHOD 10/21/2024 12:06 PM [facility] Albumin 2.8(L) 3.2 - 5.0 g/dL LAB CHEMISTRY METHOD 10/21/2024 12:06 PM [facility] Total Bilirubin 0.3 0.0 - 1.4 mg/dL LAB CHEMISTRY METHOD 10/21/2024 12:06 PM [facility] Blood Venous blood specimen / Unknown Venipuncture / Unknown 10/21/2024 8:22 AM EDT 10/21/2024 10:38 AM EDT us Connor Solitario MD LAB BLOOD ORDERABLES Final Result Performing Organization Address City/[facility]/ZIP Co de Phone Number [facility] [address] [place] [address], * ECG 12 lead (10/03/2024 4:23 PM EDT) Ventricular Rate ECG 71 BPM GEMUSE Atrial Rate 71 BPM GEMUSE QRS Duration 142 ms GEMUSE Q-T Interval 456 ms GEMUSE QTc 495 ms GEMUSE R [place] 120 degrees GEMUSE T [place] 81 degrees GEMUSE ECG Interpretation Ventricula r-paced rhythm Underlying AF Confirmed by DK MENDES ([id number]) on 10/08/2024 3:01:52 PM GEMUSE 10/03/2024 12:5 8 PM EDT 10/08/2024 3:01 PM EDT Isarua Shelby NP ECG ORDERABLES Edited Resul t - Final Performing Organization Address City/[facility]/ZIP Co de Phone Number GEMUSE * External clinical lab (09/12/2024 10:47 AM EDT) Delta Stiles MD LAB BLOOD ORDERABLES Carmen l Result * Cardiac device check - Remote- MURJ (09/11/2024 5:36 PM EDT) Only the most recent of2 resultswithin the time period is included. Date Time Interrogation Session [id number] CV DEVICE CHECK Type Interrogation Session Remote Scheduled CV DEVICE CHECK Implantable Pulse Generator Exhibit Preparator BSX CV DEVICE CHECK Implantable Pulse Generator Type IPG CV DEVICE CHECK Implantable Pulse Generator Model L110 CV DEVICE CHECK Implantable Pulse Generator Serial Number [id number] CV DEVICE CHECK Implantable Pulse Generator Implant Date 20240303 CV DEVICE CHECK Battery Remaining Percentage 100.00 CV DEVICE CHECK Battery Remaining Longevity 108.0 CV DEVICE CHECK Battery Status Beginning of Service CV DEVICE CHECK Bhaskar Statistic RV Percent Paced 100.00 CV DEVICE CHECK Lead Channel Setting Sensing Sensitivity 2.50 CV DEVICE CHECK Lead Channel Impedance Value 640 CV DEVICE CHECK Lead Channel Pacing Threshold Amplitude 0.700 CV DEVICE CHECK Lead Channel Pacing Threshold Pulse Width 0.4 CV DEVICE CHECK Lead Channel RV Pacing Threshold Date 2024-09-04 CV DEVICE CHECK Lead Channel Setting Pacing [...] Anatomical Region Laterality Modality Device Interroga tion 09/06/2024 1:21 AM EDT Impressions 09/11/2024 5:26 PM EDT Normal Remote: No Events * Normal Device Function * Alerts or events: None * Battery: Battery is at 100%, 9.00 yrs * Sensing, impedance and thresholds reviewed * Programmed parameters reviewed * Presenting rhythm reviewed * Heart Rate Histograms reviewed * No significant changes noted Additional Notes: Episode previously noted Narrative Procedure Note Alexandro Llanes MD - 09/11/2024 IMPRESSION: Normal Remote: No Events * Normal Device Function * Alerts or events: None * Battery: Battery is at 100%, 9.00 yrs * Sensing, impedance and thresholds reviewed * Programmed parameters reviewed * Presenting rhythm reviewed * Heart Rate Histograms reviewed * No significant changes noted Additional Notes: Episode previously noted Alexandro Llanes MD CV IMPLANTABLE CARDIAC DEVICE PROCEDURES Final Result * B-type natriuretic peptide (08/28/2024 1:13 PM EDT) B-Type Natriuretic Peptide 70.3 0.0 - 100.0 pg/mL [facility] 1 Comment:[employer] [place] [facility] XP methodology Blood Venous blood specimen / Unknown 08/28/2024 1:13 PM EDT 08/28/2024 Narrative [facility] 1 - 08/29/2024 7:06 AM EDT Performed at: ??01 - [facility] [address] ??[id number] Paving Block Cutter: Olga Brand MD, Phone: ??[phone] us Isaura Shelby ASSOCIATE QUALITY ENGINEER LAB BLOOD ORDERABLES Final R esult [facility] 1 * Magnesium (08/28/2024 1:13 PM EDT) Magnesium 1.9 1.6 - 2.3 mg/dL [facility] 1 Blood Venous blood specimen / Unknown 08/28/2024 1:13 PM EDT 08/28/2024 Narrative [facility] 1 - 08/29/2024 8:07 AM EDT Performed at: ??01 - [facility] [address] ??[id number] Paving Block Cutter: Olga Brand MD, Phone: ??[phone] us Isaura Shelby ASSOCIATE QUALITY ENGINEER LAB BLOOD ORDERABLES Final R esult [facility] 1 from Last 3 Months Insurance MEDICARE [facility] Care Teams Joinery Patternmaker Relationship Specialty Start Date End Date Bridgette Duffy MD [address] [place] [phone] PCP - General 05/13/20
[2024-11-22 14:00] VITALS: BP 127/63; PULSE 84; RESP 16; TEMP 36.4; O2SAT 97
[2024-11-22 14:01] LABS: Alanine Aminotransferase < 6 U/L (0-31); Albumin Level 3.9 g/dL (3.5-5.0); Alkaline Phosphatase 64 U/L (39-117); Anion Gap 15 (12-20); Aspartate Amino Transferase 16 U/L (5-31); Bilirubin Total 0.7 mg/dL (0.0-1.0); Blood Urea Nitrogen 14 mg/dL (9-16); Calcium 9.5 mg/dL (8.4-10.2); Carbon Dioxide 24 mmol/L (22-29); Chloride 105 mmol/L (96-108); Creatinine Clr Calc Pharmacy 39.8; Estimated Glomerular Filt Rate > 60; Glucose Random 101 mg/dL (60-115); Lipase 10 U/L (8-78); Magnesium 1.9 mg/dL (1.6-2.6); Potassium 3.8 mmol/L (3.3-5.1); Sodium 140 mmol/L (135-145); Total Protein 6.8 g/dL (6.5-8.0)
[2024-11-22 15:41] LABS: Appearance Urine Cloudy; Color Urine Yellow; Glucose Urine UA Negative (Negative); Leukocyte Esterase Urine Large (3+) (Negative); Nitrite Urine Negative (Negative); PH 5.5 (5.0-9.0); Specific Gravity - Urine 1.015 (1.005-1.025); UMIC TRIGGER UACC YES; Urine Blood Large (3+) (Negative); Urine Ketones 15 mg/dL (Negative); Urine Protein 100 (2+) mg/dL (Neg-Trace)
[2024-11-22 16:09] LABS: Bacteria Urine 1+ (None Seen); Hyaline Casts Urine 0-2 /LPF (0-2); RBC Urine >20 /HPF (0-2); Squamous Epithelial Cell Urine 0-2 /HPF (0-2); UACC Culture Trigger YES; WBC Urine >50 /HPF (0-5)
[2024-11-22] MEDS: cephALEXin 500 MG CAPSULE 1000 MG PO (17:15)
[2024-11-22 17:19] VITALS: BP 130/69; PULSE 70; RESP 16; TEMP 36.7; O2SAT 97
[2024-11-22 17:24] VITALS: BP 130/69; PULSE 70; RESP 16; TEMP 36.7; O2SAT 97
== END 2024-11-22 17:25 | disposition home or self-care (01) ==
PROVIDERS: Physician Assistant Medical; Emergency Provider Emergency Medicine; PCP Family Medicine
DX: N20.1 Calculus of ureter (principal); M54.50 Low back pain, unspecified; R11.2 Nausea with vomiting, unspecified; I10 Essential (primary) hypertension; K21.9 Gastro-esophageal reflux disease without esophagitis; I48.91 Unspecified atrial fibrillation; Z79.899 Other long term (current) drug therapy
CPT/HCPCS: 36415; 72100; 74176; 80053; 81001; 83690; 83735; 85025; 87086; 87088; 87186; 99284

== ENCOUNTER → 2024-11-22 13:04 | Outpatient (BNV) | payer MEDICARE, SELFPAY | PROVIDERS: PCP Family Medicine; Visit Provider Radiology Diagnostic Radiology | DX: N13.2 Hydronephrosis with renal and ureteral calculous obstruction (principal); M51.361 Other intervertebral disc degeneration, lumbar region with lower extremity pain only; N20.0 Calculus of kidney | CPT/HCPCS: 74176 ==

== ENCOUNTER 2024-12-06 14:15 | Outpatient (AMB) | payer MEDICARE, SELFPAY ==
--- NOTE | 2024-12-06 14:15 | A.OFFVIS_ITS ---
Intake Visit Reasons: Kidney stones- ESWL discussion Intake Note: Patient is present for follow up kidney stone Urology Rx:none Blood Thinners:none Allergies Amoxicillin / Clavulanate Allergy (Mild, Uncoded 12/06/24 14:18) Nausea HPI Comments Details: Ernestina is a pleasant female. She is a patient of . She is seen for the following urologic conditions - nephrolithiasis Telemedicine Evaluation 15 min Consultation Doximity Leslee Video Seen in the emergency room recently with bilateral stones Pain on the right side Discussed size of stones Recommend ESWL right side if well tolerated will do left side Hold aspirin 10 days prior We will give 5 days of Macrobid to minimize chance of infection [facility] Medical History (Updated 12/06/24 @ 15:27 by Juan Grant MD) HTN (hypertension) GERD (gastroesophageal reflux disease) Persistent atrial fibrillation Surgical History History of surgery on left wrist Social History Household Members: Spouse Housing: [facility] Do you presently have visiting nurse or other home services: No Alcohol intake: former Patient Tobacco Use Status: Former Tobacco user service: No Current occupational status: retired Current occupation: right hand dominant Review of Systems Const All systems reviewed & are unremarkable except as noted in HPI and below Reports no additional complaints Resp Reports no additional complaints GI Reports no additional complaints Reports as per HPI Musc Reports no additional complaints Physical Exam Telemedicine evaluation Appropriate responses Regular breathing rate and rhythm HEENT Head: Yes normal to inspection Ears: hearing grossly normal bilaterally Eyes General: appearance normal, both eyes and all related structures Neck Neck: Yes normal visual inspection Chest Chest palpation & inspection: normal inspection of the chest Resp Effort & Inspection: normal respiratory effort and able to speak in complete sentences Telehealth Telehealth Telehealth Platform: [employer] Location of provider rendering services: practice address Location of patient: address on file Patient Identification confirmed using: Name, : Yes Telehealth method: video Patient verbally consented to treatment: Yes Patient verbally consented to billing insurance company: Yes Patient informed of any privacy concerns related to visit: Yes Minutes spent on Phone/Video with Pt.: 15 Assessment & Plan Assessment & Plan (1) Nephrolithiasis: Code(s): N20.0 - Calculus of kidney Category: Medical Plan Extracorporeal Shock Wave Lithotripsy We discussed the nature of the decision and reasonable alternatives for performing the above surgery. Interventions include chemical dissolution, ESWL, ureteroscopy with laser lithotripsy and stent placement, PCNL. Options such as medical therapy were discussed. The relative uncertainties and benefits related to each alternate procedure were adequately discussed. General surgical risks including, but not limited to, pain, bleeding, infection, myocardial infarction, pulmonary embolus, deep vein thrombosis and cerebrovascular accident which may result in further hospitalization were discussed. Full disclosure of the procedure as well as all major risks, benefits and complications were discussed including but not limited to risks of bleeding, injury to the kidney with hematoma or alok-hematoma, failure to fragments stone, potential for ureteric obstruction from stone passage and need for secondary procedures. There is a small long-term risk of hypertension and a question christine of diabetes. Success rate of fragmentation and passage is approximately 70- 75%. This is compared to the risks and benefits for ureteroscopy which has a higher success rate but is a more invasive procedure. The success rate of the procedure was discussed. Success of the procedure in the short-term does not necessarily guarantee that long-term success will be maintained. Suitable follow up will need to be maintained. The patient showed understanding of the discussion as well as the typical recovery time, and the outpatient nature of this procedure. Opportunity was given for questions. Repeat-back protocol used to confirm understanding. They wish to proceed with right ESWL Patient Instructions: This note is constructed using voice recognition software. While every effort has been made to ensure accuracy vegetable harvest machine operator errors may have been included. Imaging studies, laboratory and physical exam results were discussed and reviewed in detail. No major barriers to patient understanding were identified. An opportunity to ask questions regarding the treatment plan was provided. All questions were answered. The patient expressed understanding and agreement with the above treatment plan. The patient is aware they should contact our office by phone for worsening of their current condition or the appearance of new urologic symptoms. Compliance is encouraged with any medications and followup testing that is ordered. It is a privilege to participate in the urologic care of your patient. If you have any questions or concerns regarding treatment for the above conditions, or other urologic issues, please do not hesitate to contact me. The office telephone contact is [phone]. Sincerely, Dr Juan Grant MD, [place] [facility] - Urology Compassionate Specialist Care for the Genitourinary System Coding Level of Care Code Tele New Pt Level 4 (67294) Diagnoses Nephrolithiasis N20.0
--- OUTSIDE RECORDS SUMMARY | 2024-12-06 16:22 | XMS_ITS | Clinical Summary ---
Author Organization [address] [place] [address] [place] [phone] Phone Care Team Providers Care Clutch Mechanic Name Role Phone Bridgette Duffy MD Primary Care Provider [phone] Allergies Active Allergy Reactions Criticality Noted Date [...] she agreed to have this done at [facility]. She will agree to continue anticoagulation and we can reevaluate whether that is necessary to continue long-term based on her [id number] score and any evidence of recurrent arrhythmia. She understands that he potential risks of venous access complications, cardiac perforation and tamponade, catheter related thrombus resulting in MD or stroke. He had Benign essential hypertension 07/31/2020 Overview (07/05/2024): Benign essential hypertension under excellent control. Last Assessment & Plan: Well rate controlled on current medications. Continue low-sodium diet. Supraventricular premature beats 07/31/2020 Overview (07/05/2024): Premature beats Supraventricular premature beats Encounters Date Type Department Care Team Description 10/29/2024 Lab Requisition [facility] - Main Lab [address] [facility] [place] [phone] Connor Solitario MD Essential (primary) hypertension; Anemia, unspecified 10/26/2024 Lab Requisition [facility] Lab [address] [place] [phone] Connor Solitario MD Anemia, unspecified 10/24/2024 Lab Requisition [facility] Lab [address] [place] [phone] Connor Solitario MD Anemia, unspecified 10/23/2024 Lab Requisition [facility] Lab [address] [place] [phone] Connor Solitario MD Essential (primary) hypertension; Anemia, unspecified; Unspecified atrial fibrillation (CMS/HCC V24, CMS/HCC V28) 10/21/2024 Lab Requisition [facility] Lab [address] [place] [phone] Connor Solitario MD Essential (primary) hypertension; Unspecified atrial fibrillation (CMS/HCC V24, CMS/HCC V28); Anemia, unspecified 10/03/2024 12:40 PM EDT Office Visit [facility] Cardiology [facility] [address] [facility] [address] [place] [phone] Isaura Shelby NP Atrial fibrillation, unspecified type (CMS/HCC V24, CMS/HCC V28) (Primary Dx) 09/11/2024 5:40 PM EDT Ancillary Procedure [facility] Cardiology [facility] [address] [facility] [address] [place] [phone] from Last 3 Months Immunizations Name Administration Dates Next Due Pfizer SARS-CoV-2 COVID-19, mRNA, LNP-S, preservative free 04/24/2021,08/16/2020,07/26/2020 Surgical History Surgery Date Site/Laterality Comments OTHER SURGICAL HISTORY 10/14/2015 PROCEDURE: [place] ENDOSCOPY UPPER SMALL INTESTINE CATARACT EXTRACTION PROCEDURE: HISTORICAL CATARACT REMOVAL; COMMENT: 12/19/14, 10/31/14 OTHER SURGICAL HISTORY 01/19/2014 PROCEDURE: HISTORY OTHER BREAST LUMPECTOMY 11/14/2013 PROCEDURE: HISTORICAL BREAST LUMPECTOMY OTHER SURGICAL HISTORY 09/25/2011 PROCEDURE: PFT FULL (60 MINUTES) OTHER SURGICAL HISTORY 07/26/2009 PROCEDURE: [place] ECHO TRANSTHORAC R-T 2D W/WO M-MODE REC COMP OTHER SURGICAL HISTORY 07/26/2009 PROCEDURE: OUTSIDE HOLTER MONITOR OTHER SURGICAL HISTORY 06/25/2008 PROCEDURE: PFT FULL (60 MINUTES) APPENDECTOMY PROCEDURE: HISTORICAL APPENDECTOMY HYSTERECTOMY PROCEDURE: HISTORICAL HYSTERECTOMY OTHER SURGICAL HISTORY 01/19/2014 PROCEDURE: HISTORY OTHER; COMMENT: [place] lymph node biopsy Medical History Medical History [...] Description 01/03/2025 1:10 PM EDT Office Visit [facility] [address] [place] [phone] Isaura Shelby NP [address] [place] [phone] 04/04/2025 3:00 PM EDT Ancillary Procedure [facility] Cardiology [facility] [address] [place] [phone] Health Maintenance Due Date Last Done Comments Zoster Vaccines (1 of 2) 08/26/2015 07/01/2015 Cholesterol Screening (Lipid Panel) 05/24/2022 Depression Screening 05/24/2022 Falls Risk Assessment 05/24/2022 Medicare Annual Wellness Visit 05/24/2022 Osteoporosis Screening (Bone Density Screening) 05/24/2022 Social Influencers of Health Screening 05/24/2022 COVID-19 Vaccine (7 - Pfizer risk 2023- season) 2024 04/04/2024, 11/11/2022, 10/09/2021, Additional history [...] this topic Medical Devices Implanted Type Area Field Supervisor Seed Production Device Identifier Shelf Expiration Date Model / Serial / Lot Bsci-Crm [id number] Implanted: (Quantity not on file) Cardiac Pacemaker [employer] CARD RHYTHM MGMT [id number] / [id number] / Device Clsur Watchman Flx Magda 27mm Bsci-Prnt [id number] Implanted:Qty : 1 on 06/03/2023 by Alexandro Llanes MD Left: Heart T-ZONE 03/01/2026 [id number] / / [id number] Description:Implanted in lef t atrial appendage. Procedures [...] REMOTE- MURJ Routine 09/11/2024 5:36 PM EDT from Last 3 Months Results * (ABNORMAL) Complete blood count (10/26/2024 8:54 AM EDT) Only the most recent of4 resultswithin the time period is included. WBC 5.5 4.8 - 10.8 K/mcL LAB HEMETOLOGY METHOD 10/26/2024 10:23 AM [facility] RBC 3.00(L) 3.80 - 4.80 M/mcL LAB HEMETOLOGY METHOD 10/26/2024 10:23 AM [facility] Hemoglobin 8.1(L) 11.5 - 16.0 g/dL LAB HEMETOLOGY METHOD 10/26/2024 10:23 AM [facility] Hematocrit 26.8(L) 35.0 - 47.0 % LAB HEMETOLOGY METHOD 10/26/2024 10:23 AM [facility] MCV 90.8 79.0 - 98.0 FL LAB HEMETOLOGY METHOD 10/26/2024 10:23 AM [facility] MCH 27.5 27.0 - 32.0 pcg LAB HEMETOLOGY METHOD 10/26/2024 10:23 AM EDT [facility] MCHC 30.2(L) 32.0 - 37.0 g/dL LAB HEMETOLOGY METHOD 10/26/2024 10:23 AM EDT [facility] RDW 18.8(H) 11.0 - 15.0 % LAB HEMETOLOGY METHOD 10/26/2024 10:23 AM EDT [facility] Platelets 320 130 - 400 K/mcL LAB HEMETOLOGY METHOD 10/26/2024 10:23 AM EDT [facility] MPV 11.5(H) 7.0 - 11.0 FL LAB HEMETOLOGY METHOD [facility] NRBC 0.0 <1.0 % LAB HEMETOLOGY METHOD 10/26/2024 10:23 AM [facility] NRBC Absolute 0.00 <0.10 K/mcL LAB HEMETOLOGY METHOD 10/26/2024 10:23 AM [facility] Blood Venous blood specimen / Unknown Venipuncture / Unknown 10/26/2024 8:54 AM EDT 10/26/2024 10:12 AM EDT Connor Solitario MD LAB BLOOD ORDERABLES Final Result [facility] [address] [place] [address], * Basic metabolic panel (10/23/2024 9:01 AM EDT) Sodium 139 133 - 145 mmol/L LAB CHEMISTRY METHOD [facility] Potassium 4.1 3.5 - 5.5 mmol/L LAB CHEMISTRY METHOD 10/23/2024 1:52 PM [facility] Chloride 108 96 - 110 mmol/L LAB CHEMISTRY METHOD 10/23/2024 1:52 PM EDT [facility] CO2 25 21 - 32 mmol/L LAB CHEMISTRY METHOD 10/23/2024 1:52 PM [facility] Anion Gap 6 3 - 11 LAB CHEMISTRY METHOD 10/23/2024 1:52 PM [facility] Glucose 93 70 - 100 mg/dL LAB CHEMISTRY METHOD 10/23/2024 1:52 PM [facility] BUN 11 5 - 25 mg/dL LAB CHEMISTRY METHOD 10/23/2024 1:52 PM [facility] Creatinine 0.71 0.50 - 1.10 mg/dL LAB CHEMISTRY METHOD 10/23/2024 1:52 PM [facility] eGFR 84 >=60 mL/min/1. 73m2 LAB CHEMISTRY METHOD 10/23/2024 1:52 PM [facility] Comment:Calculation based on the Chronic Kidney Disease Epidemiology Collaboration (CKD-EPI) equation refit without adjustment for race. BUN/Creatinine Ratio 15.5 LAB CHEMISTRY METHOD 10/23/2024 1:52 PM [facility] Calcium 9.0 8.5 - 10.5 mg/dL LAB CHEMISTRY METHOD 10/23/2024 1:52 PM [facility] Blood Venous blood specimen / Unknown Venipuncture / Unknown 10/23/2024 9:01 AM EDT 10/23/2024 12:09 PM EDT us Connor Solitario MD LAB BLOOD ORDERABLES Final Result [facility] [address] [place] [address], [place] [phone] * (ABNORMAL) Comprehensive metabolic panel (10/21/2024 8:22 AM EDT) Sodium 139 133 - 145 mmol/L LAB CHEMISTRY METHOD 10/21/2024 12:06 PM [facility] Potassium 4.3 3.5 - 5.5 mmol/L LAB CHEMISTRY METHOD 10/21/2024 12:06 PM [facility] Chloride 107 96 - 110 mmol/L LAB CHEMISTRY METHOD 10/21/2024 12:06 PM [facility] CO2 28 21 - 32 mmol/L LAB CHEMISTRY METHOD 10/21/2024 12:06 PM [facility] Anion Gap 4 3 - 11 LAB CHEMISTRY METHOD 10/21/2024 12:06 PM [facility] Glucose 105(H) 70 - 100 mg/dL LAB CHEMISTRY METHOD 10/21/2024 12:06 PM [facility] BUN 17 5 - 25 mg/dL LAB CHEMISTRY METHOD 10/21/2024 12:06 PM [facility] Creatinine 0.83 0.50 - 1.10 mg/dL LAB CHEMISTRY METHOD 10/21/2024 12:06 PM [facility] eGFR 70 >=60 mL/min/1. 73m2 LAB CHEMISTRY METHOD 10/21/2024 12:06 PM [facility] Comment:Calculation based on the Chronic Kidney Disease Epidemiology Collaboration (CKD-EPI) equation refit without adjustment for race. BUN/Creatinine Ratio 20.5 LAB CHEMISTRY METHOD 10/21/2024 12:06 PM [facility] Calcium 9.0 8.5 - 10.5 mg/dL LAB CHEMISTRY METHOD 10/21/2024 12:06 PM [facility] AST (SGOT) 14 10 - 42 unit/L LAB CHEMISTRY METHOD 10/21/2024 12:06 PM [facility] ALT (SGPT) 17 10 - 60 unit/L LAB CHEMISTRY METHOD 10/21/2024 12:06 PM [facility] Alkaline Phosphatase 64 42 - 121 unit/L LAB CHEMISTRY METHOD 10/21/2024 12:06 PM EDT [facility] Total Protein 5.6(L) 6.0 - 8.0 g/dL LAB CHEMISTRY METHOD 10/21/2024 12:06 PM EDT [facility] Albumin 2.8(L) 3.2 - 5.0 g/dL LAB CHEMISTRY METHOD 10/21/2024 12:06 PM EDT [facility] Total Bilirubin 0.3 0.0 - 1.4 mg/dL LAB CHEMISTRY METHOD 10/21/2024 12:06 PM EDT [facility] Blood Venous blood specimen / Unknown Venipuncture / Unknown 10/21/2024 8:22 AM EDT 10/21/2024 10:38 AM EDT Connor Solitario MD LAB BLOOD ORDERABLES Final Result [facility] [address] [place] [address], [place] [phone] * ECG 12 lead (10/03/2024 4:23 PM EDT) Ventricular Rate ECG 71 BPM GEMUSE Atrial Rate 71 BPM GEMUSE QRS Duration 142 ms GEMUSE Q-T Interval 456 ms GEMUSE QTc 495 ms GEMUSE R [place] 120 degrees GEMUSE T [place] 81 degrees GEMUSE ECG Interpretation Ventricula r-paced rhythm Underlying AF Confirmed by DK MENDES ([id number]) on 10/08/2024 3:01:52 PM GEMUSE 10/03/2024 12:5 8 PM EDT 10/08/2024 3:01 PM EDT us Isaura Shelby NP ECG ORDERABLES Edited Resul t - Final GEMUSE * External clinical lab (09/12/2024 10:47 AM EDT) us Historical Provider LAB BLOOD ORDERABLES Carmen l Result * Cardiac device check - Remote- MURJ (09/11/2024 5:36 PM EDT) Date Time Interrogation Session [id number] CV DEVICE CHECK Type Interrogation Session Remote Scheduled CV DEVICE CHECK Implantable Pulse Generator Field Supervisor Seed [employer] BSX CV DEVICE CHECK Implantable Pulse Generator Type IPG CV DEVICE CHECK Implantable Pulse Generator Model L110 CV DEVICE CHECK Implantable Pulse Generator Serial Number [id number] CV DEVICE CHECK Implantable Pulse Generator Implant [...] CV IMPLANTABLE CARDIAC DEVICE PROCEDURES Final Result from Last 3 Months Insurance MEDICARE [facility] Care Teams Clutch Mechanic Relationship Specialty Start Date End Date Bridgette Duffy MD [address] [place] [phone] PCP - General 05/13/20
== END 2024-12-06 16:33 | disposition home or self-care (01) ==
LOC: HO.HUSH 14:15
PROVIDERS: PCP Family Medicine; Visit Provider Urology
DX: N20.0 Calculus of kidney (principal)
CPT/HCPCS: 99204

== ENCOUNTER → 2024-12-06 14:15 | Outpatient (BNVA) | payer MEDICARE, SELFPAY | PROVIDERS: PCP Family Medicine; Visit Provider Urology ==

== ENCOUNTER 2025-01-03 05:49 | Day surgery (SDC) | payer MEDICARE, SELFPAY ==
--- OUTSIDE RECORDS SUMMARY | 2024-12-15 12:31 | XMS_ITS | Clinical Summary ---
Author Organization [address] [place] [address] [place] [phone] Phone Care Team Providers Care Psychosocial Rehabilitation Counselor Name Role Phone Bridgette Duffy MD Primary Care Provider [phone] Allergies Active Allergy Reactions Criticality Noted Date [...] she agreed to have this done at [facility]. She will agree to continue anticoagulation and we can reevaluate whether that is necessary to continue long-term based on her [id number] score and any evidence of recurrent arrhythmia. She understands that he potential risks of venous access complications, cardiac perforation and tamponade, catheter related thrombus resulting in CA or stroke. He had Benign essential hypertension 07/31/2020 Overview (07/05/2024): Benign essential hypertension under excellent control. Last Assessment & Plan: Well rate controlled on current medications. Continue low-sodium diet. Supraventricular premature beats 07/31/2020 Overview (07/05/2024): Premature beats Supraventricular premature beats Encounters Date Type Department Care Team Description 10/29/2024 Lab Requisition [facility] - Main Lab [address] [facility] [place] [address] Connor Solitario MD Essential (primary) hypertension; Anemia, unspecified 10/26/2024 Lab Requisition [facility] Lab [address] [place] [phone] Connor Solitario MD Anemia, unspecified 10/24/2024 Lab Requisition [facility] Lab [address] [place] [phone] Connor Solitario MD Anemia, unspecified 10/23/2024 Lab Requisition [facility] Lab [address] [place] [phone] Connor Solitario MD Essential (primary) hypertension; Anemia, unspecified; Unspecified atrial fibrillation (CMS/HCC V24, CMS/HCC V28) 10/21/2024 Lab Requisition [facility] Lab [address] [place] [phone] Connor Solitario MD Essential (primary) hypertension; Unspecified atrial fibrillation (CMS/HCC V24, CMS/HCC V28); Anemia, unspecified 10/03/2024 12:40 PM EDT Office Visit [facility] [address] [facility] [address] [place] [address] Isaura Shelby NP Atrial fibrillation, unspecified type (CMS/HCC V24, CMS/HCC V28) (Primary Dx) from Last 3 Months Immunizations Name Administration Dates Next Due Pfizer SARS-CoV-2 COVID-19, mRNA, LNP-S, preservative free 04/24/2021,08/16/2020,07/26/2020 Surgical History Surgery Date Site/Laterality Comments OTHER SURGICAL HISTORY 10/14/2015 PROCEDURE: AK ENDOSCOPY UPPER SMALL INTESTINE CATARACT EXTRACTION PROCEDURE: HISTORICAL CATARACT REMOVAL; COMMENT: 12/19/14, 10/31/14 OTHER SURGICAL HISTORY 01/19/2014 PROCEDURE: HISTORY OTHER BREAST LUMPECTOMY 11/14/2013 PROCEDURE: HISTORICAL BREAST LUMPECTOMY OTHER SURGICAL HISTORY 09/25/2011 PROCEDURE: PFT FULL (60 MINUTES) OTHER SURGICAL HISTORY 07/26/2009 PROCEDURE: AK ECHO TRANSTHORAC R-T 2D W/WO M-MODE REC COMP OTHER SURGICAL HISTORY 07/26/2009 PROCEDURE: OUTSIDE HOLTER MONITOR OTHER SURGICAL HISTORY 06/25/2008 PROCEDURE: PFT FULL (60 MINUTES) APPENDECTOMY PROCEDURE: HISTORICAL APPENDECTOMY HYSTERECTOMY PROCEDURE: HISTORICAL HYSTERECTOMY OTHER SURGICAL HISTORY 01/19/2014 PROCEDURE: HISTORY OTHER; COMMENT: [place] lymph node biopsy Medical History Medical History [...] Care Team (Late st Contact Info) Description 01/02/2025 8:40 AM EDT Office Visit [facility] [address] [place] [address] Isaura Shelby [employer] [address] [place] [address] 04/04/2025 3:00 PM EDT Ancillary Procedure [facility] [address] [facility] [address] [place] [address] Health Maintenance Due Date Last [...] this topic Medical Devices Implanted Type Area Seafood Farmer Device Identifier Shelf Expiration Date Model / Serial / Lot Bsci-Crm [id number] Implanted: (Quantity not on file) Cardiac Pacemaker [employer] MGMT [id number] / [id number] / Device Clsur Watchman Flx Magda 27mm Bsci-Prnt [id number] Implanted:Qty : 1 on 06/03/2023 by Alexandro Llanes MD Left: Heart [employer] 03/01/2026 [id number] / / [id number] Description:Implanted in lef t atrial appendage. Procedures [...] fibrillation, unspecified type (CMS/HCC V24, CMS/HCC V28) from Last 3 Months Results * (ABNORMAL) [...] pcg LAB HEMETOLOGY METHOD 10/26/2024 10:23 AM [facility] MCHC 30.2(L) 32.0 - 37.0 g/dL LAB HEMETOLOGY METHOD 10/26/2024 10:23 AM [facility] RDW 18.8(H) 11.0 - 15.0 % LAB HEMETOLOGY METHOD 10/26/2024 10:23 AM EDT [facility] Platelets 320 130 - 400 K/mcL LAB HEMETOLOGY METHOD 10/26/2024 10:23 AM EDT [facility] MPV 11.5(H) 7.0 - 11.0 FL LAB HEMETOLOGY METHOD 10/26/2024 10:23 AM EDT [facility] NRBC 0.0 <1.0 % LAB HEMETOLOGY METHOD 10/26/2024 10:23 AM EDT [facility] NRBC Absolute 0.00 <0.10 K/mcL [facility] 10/26/2024 10:23 AM EDT [facility] Blood Venous blood specimen / Unknown Venipuncture / Unknown 10/26/2024 8:54 AM EDT 10/26/2024 10:12 AM EDT Connor Solitario MD LAB BLOOD ORDERABLES Final Result [facility] [address] [place] [address], * Basic metabolic panel (10/23/2024 9:01 AM EDT) Sodium 139 133 - 145 mmol/L LAB CHEMISTRY METHOD 10/23/2024 1:52 PM [facility] Potassium 4.1 3.5 - 5.5 mmol/L LAB CHEMISTRY METHOD 10/23/2024 1:52 PM [facility] Chloride 108 96 - 110 mmol/L LAB CHEMISTRY METHOD 10/23/2024 1:52 PM [facility] CO2 25 21 - 32 mmol/L LAB CHEMISTRY METHOD 10/23/2024 1:52 PM [facility] Anion Gap 6 3 - 11 LAB CHEMISTRY METHOD 10/23/2024 1:52 PM EDT [facility] Glucose 93 70 - 100 mg/dL LAB CHEMISTRY METHOD 10/23/2024 1:52 PM EDT [facility] BUN 11 5 - 25 mg/dL LAB CHEMISTRY METHOD 10/23/2024 1:52 PM EDT [facility] Creatinine 0.71 0.50 - 1.10 mg/dL LAB CHEMISTRY METHOD 10/23/2024 1:52 PM EDT [facility] eGFR 84 >=60 mL/min/1. 73m2 LAB CHEMISTRY METHOD 10/23/2024 1:52 PM EDT [facility] Comment:Calculation based on the Chronic Kidney Disease Epidemiology Collaboration (CKD-EPI) equation refit without adjustment for race. BUN/Creatinine Ratio 15.5 LAB CHEMISTRY METHOD 10/23/2024 1:52 PM EDT [facility] Calcium 9.0 8.5 - 10.5 mg/dL LAB CHEMISTRY METHOD 10/23/2024 1:52 PM EDT [facility] Blood Venous blood specimen / Unknown Venipuncture / Unknown 10/23/2024 9:01 AM EDT 10/23/2024 12:09 PM EDT Connor Solitario MD LAB BLOOD ORDERABLES Final Result [facility] [address] [place] [address], * (ABNORMAL) Comprehensive metabolic panel (10/21/2024 8:22 AM EDT) Sodium 139 133 - 145 mmol/L LAB CHEMISTRY METHOD 10/21/2024 12:06 PM T [facility] Potassium 4.3 3.5 - 5.5 mmol/L [...] METHOD 10/21/2024 12:06 PM [facility] Total Protein 5.6(L) 6.0 - 8.0 g/dL LAB CHEMISTRY METHOD 10/21/2024 12:06 PM [facility] Albumin 2.8(L) 3.2 - 5.0 g/dL LAB CHEMISTRY METHOD 10/21/2024 12:06 PM EDT [facility] Total Bilirubin 0.3 0.0 - 1.4 mg/dL LAB CHEMISTRY METHOD 10/21/2024 12:06 PM EDT [facility] Blood Venous blood specimen / Unknown Venipuncture / Unknown 10/21/2024 8:22 AM EDT 10/21/2024 10:38 AM EDT Connor Solitario MD LAB BLOOD ORDERABLES Final Result Performing Organization Address City/[facility]/ZIP Co de Phone Number [facility] [address] [place] [address], [place] [phone] * ECG 12 lead (10/03/2024 4:23 PM EDT) Ventricular Rate ECG 71 BPM GEMUSE Atrial Rate 71 BPM GEMUSE QRS Duration 142 ms GEMUSE Q-T Interval 456 ms GEMUSE QTc 495 ms GEMUSE R [place] 120 degrees GEMUSE T [place] 81 degrees GEMUSE ECG Interpretation Ventricula r-paced rhythm Underlying AF Confirmed by DK MENDES ([id number]) on 10/08/2024 3:01:52 PM GEMUSE 10/03/2024 12:5 8 PM EDT 10/08/2024 3:01 PM EDT Isaura Shelby NP ECG ORDERABLES Edited Resul t - Final GEMUSE from Last 3 Months Insurance [facility]ICARE [facility] Care Teams Psychosocial Rehabilitation Counselor Relationship Specialty Start Date End Date Bridgette Duffy MD [address] [place] [phone] PCP - General 05/13/20
[2024-12-29 14:27] VITALS: BMI 18.2
--- NOTE | 2025-01-02 11:58 | HO.ANESPROP2 ---
Documented by User: Loren Mann NP 01/02/25 12:52 HPI - Anesthesia Eval Consult details Narrative: 84 yr old female for right sided lithotripsy ESW. Pacemaker: remote device check 12/18/24, no events. Persistent atrial tachycardia: s/p successful AV node ablation, s/p Watchman 05/2023, on life long ASA. COPD: on Trelegy, ?spiriva PMFSH Active Problems Active Problems: All Active Problems Nephrolithiasis (Acute) Weakness (Acute) Colitis (Acute) Past Medical History Medical History Presence of Watchman left atrial appendage closure device Osteoarthritis Breast cancer Nephrolithiasis Asthma Aortic atherosclerosis Anxiety Anemia Incarcerated femoral hernia HTN (hypertension) GERD (gastroesophageal reflux disease) Persistent atrial fibrillation Surgical History Surgical History History of radiofrequency ablation (RFA) procedure for cardiac arrhythmia Hx of appendectomy Hx of hysterectomy History of lumpectomy of left breast Hx of bilateral cataract extraction History of esophagogastroduodenoscopy (EGD) History of femoral hernia repair S/P cardiac pacemaker procedure History of surgery on left wrist Social History Social History (Updated 12/29/24 @ 14:22 by Lindsey Ruiz RN) Household Members: Spouse Housing: Condominium Do you presently have visiting nurse or other home services: No Alcohol intake: former Patient Tobacco Use Status: Former Tobacco user Tobacco use type: Cigarette Use of substances other than those prescribed or required for medical reasons: No Have you been hit, kicked, punched, or otherwise hurt by someone within the past year? If so, by whom?: No Spiritual Healthcare Practices: no Yarsanism Healthcare Practices: no Cultural Healthcare Practices: no Advance Directives Information Provided: Yes Advance Directives on File: No FDLMP: n/a Poor oral hygiene: No service: No Current occupational status: retired Current occupation: right hand dominant Meds Allergies Allergy/AdvReac Type Severity Reaction Status Date / Time amoxicillin (From Augmentin) Allergy Mild Nausea Verified 01/03/25 06:30 clavulanic acid (From Allergy Mild Nausea Verified 01/03/25 06:30 Augmentin) Home Medications ?Medication ?Instructions ?Recorded ?Confirmed ?Last Taken ?Type citalopram 20 mg tablet 20 mg PO DAILY 10/29/23 01/03/25 2 Days Ago History ~08/29/24 diltiazem HCl 360 mg 360 mg PO DAILY 10/29/23 01/03/25 2 Days Ago History capsule,extended release 24 hr ~08/29/24 pantoprazole 40 mg tablet,delayed 40 mg PO DAILY@0630 10/29/23 01/03/25 2 Days Ago History release ~08/29/24 acetaminophen 325 mg tablet 975 mg PO Q6H PRN pain 08/31/24 01/03/25 2 Days Ago History ~08/29/24 aspirin 81 mg tablet,delayed 81 mg PO DAILY 08/31/24 01/03/25 12/28/24 History release gabapentin 100 mg capsule 100 mg PO BID 08/31/24 01/03/25 2 Days Ago History ~08/29/24 losartan 25 mg tablet 25 mg PO DAILY 08/31/24 01/03/25 2 Days Ago History ~08/29/24 albuterol 90 mcg-budesonide 80 2 inh inhalation Q4-6H PRN wheezing 12/29/24 01/03/25 Unknown History mcg/actuation HFA aerosol inhaler (Airsupra) fluticasone fur. 200 mcg-umeclid 1 ea inhalation DAILY 12/29/24 01/03/25 Unknown History 62.5 mcg-vilant 25 mcg inhalat.powder (Trelegy Ellipta) tiotropium bromide 18 mcg capsule 1 cap inhalation DAILY 12/29/24 01/03/25 Unknown History with inhalation device (Spiriva with HandiHaler) Exam Exam Date and Time: EKG 09/2024 ventricular paced, rate 70. ECHO 01/2023 EF 55-60%, no . Height,Weight and Vital Signs: Height 5 ft 3.78 in Weight 47.8 kg Documented by User: Hector Montoya MD 01/03/25 08:13 [facility] Past Medical History Medical History Presence of Watchman left atrial appendage closure device Osteoarthritis Breast cancer Nephrolithiasis Asthma Aortic atherosclerosis Anxiety Anemia Incarcerated femoral hernia HTN (hypertension) GERD (gastroesophageal reflux disease) Persistent atrial fibrillation Family History Family history of problems with anesthesia: No Surgical History Surgical History History of radiofrequency ablation (RFA) procedure for cardiac arrhythmia Hx of appendectomy Hx of hysterectomy History of lumpectomy of left breast Hx of bilateral cataract extraction History of esophagogastroduodenoscopy (EGD) History of femoral hernia repair S/P cardiac pacemaker procedure History of surgery on left wrist History of Problems with Anesthesia: No Social History Social History (Updated 12/29/24 @ 14:22 by Lindsey Ruiz RN) Household Members: [facility] Do you presently have visiting nurse or other home services: No Alcohol intake: former Patient Tobacco Use Status: Former Tobacco user Tobacco use type: Cigarette Use of substances other than those prescribed or required for medical reasons: No Have you been hit, kicked, punched, or otherwise hurt by someone within the past year? If so, by whom?: No Spiritual Healthcare Practices: no Yarsanism Healthcare Practices: no Cultural Healthcare Practices: no Advance Directives Information Provided: Yes Advance Directives on File: No FDLMP: n/a Poor oral hygiene: No service: No Current occupational status: retired Current occupation: right hand dominant Meds Allergies Allergy/AdvReac Type Severity Reaction Status Date / Time amoxicillin (From Augmentin) Allergy Mild Nausea Verified 01/03/25 06:30 clavulanic acid (From Allergy Mild Nausea Verified 01/03/25 06:30 Augmentin) Home Medications ?Medication ?Instructions ?Recorded ?Confirmed ?Last Taken ?Type citalopram 20 mg tablet 20 mg PO DAILY 10/29/23 01/03/25 2 Days Ago History ~08/29/24 diltiazem HCl 360 mg 360 mg PO DAILY 10/29/23 01/03/25 2 Days Ago History capsule,extended release 24 hr ~08/29/24 pantoprazole 40 mg tablet,delayed 40 mg PO DAILY@0630 10/29/23 01/03/25 2 Days Ago History release ~08/29/24 acetaminophen 325 mg tablet 975 mg PO Q6H PRN pain 08/31/24 01/03/25 2 Days Ago History ~08/29/24 aspirin 81 mg tablet,delayed 81 mg PO DAILY 08/31/24 01/03/25 12/28/24 History release gabapentin 100 mg capsule 100 mg PO BID 08/31/24 01/03/25 2 Days Ago History ~08/29/24 losartan 25 mg tablet 25 mg PO DAILY 08/31/24 01/03/25 2 Days Ago History ~08/29/24 albuterol 90 mcg-budesonide 80 2 inh inhalation Q4-6H PRN wheezing 12/29/24 01/03/25 Unknown History mcg/actuation HFA aerosol inhaler (Airsupra) fluticasone fur. 200 mcg-umeclid 1 ea inhalation DAILY 12/29/24 01/03/25 Unknown History 62.5 mcg-vilant 25 mcg inhalat.powder (Trelegy Ellipta) tiotropium bromide 18 mcg capsule 1 cap inhalation DAILY 12/29/24 01/03/25 Unknown History with inhalation device (Spiriva with HandiHaler) Exam Airway Mallampati Class: II TM Dist: >3cm Neck ROM: Full Loose/Missing/Broken Teeth: No Heart: ok. see above. Lungs: ok Assessment and Plan Assessment Anesthesia Assessment: Anesthesia Plan Discussed and Chart Reviewed Final Anesthetic Review Family History of Problems with Anesthesia: No History of Problems with Anesthesia: No NPO: Yes ASA Class: III and IV Final Preanesthetic Review: No Changes in Pt Med Stat, Meds/Allgs Chart Reviewed, Consent Obtained/Reviewed and Anes Risks/Benef Reviewed Patient Risk: Intermediate Procedure Risk: Low Anesthetic Plan Anesthetic Plan: Agree w/ Assess. and Plan and TIVA Disposition: Standard PACU
--- NOTE | ~2025-01-03 | XR_ITS ---
EXAMINATION: XR ABDOMEN 1 VIEW (KUB) HISTORY: stones COMPARISON: Correlation is made with a CT of the abdomen without contrast dated 11/22/2024. FINDINGS: A single supine view of the abdomen is submitted. The bowel gas pattern is unremarkable, without evidence of mechanical obstruction. There is a large amount of stool throughout the colon. There is a 1.2 x 0.7 cm calcification overlying the upper pole of the right renal shadow. An additional 9 mm calcification is also seen. On the left, there is a 1.4 x 1.0 cm calcification overlying the kidney. Smaller calcifications in the left upper quadrant may be related to the splenic artery. An abdominal wall mesh is seen in the right lower quadrant. There are no abnormal soft tissue masses. The bones are intact. XR/XR KUB IMPRESSION: 1. Bilateral nephrolithiasis as described. 2. Large amount of stool throughout the colon. Electronically signed by: Aba Dominguez MD 01/03/2025 07:45 AM EDT
[2025-01-03 06:32] VITALS: BP 137/62; PULSE 70; RESP 12; TEMP 36.6; O2SAT 99
[2025-01-03] MEDS: Lactated Ringers 1,000 ML 100 ML IVCONT (06:49)
--- NOTE | 2025-01-03 07:22 | MHC.SHP ---
Pre-Procedural Eval Section A - 24 Hr Update-Section A only Date of Service: 01/03/25 The patient is an INPATIENT: No Changes since office visit: No Cold of Flu in the past 2 weeks, No New Medical Problems, No Changes in Medication and No Patient answered all questions The patient has been examined within 24 hours of the surgical procedure. The History & Physical has been completed within 30 days and I have reviewed it.: Yes Section B - Complete if H&P > 30 days Chief Complaint: Calculus of kidney Allergies: Allergies Allergy/AdvReac Type Severity Reaction Status Date / Time amoxicillin (From Augmentin) Allergy Mild Nausea Verified 01/03/25 06:30 clavulanic acid (From Allergy Mild Nausea Verified 01/03/25 06:30 Augmentin) Review of Systems Sugical H&P ROS: Negative: Constitution, Cardiovascular, Respiratory, Neurological, Psychiatric, Hem-Onc, Allergic/Immunologic, Gastrointestinal, Genitourinary, Musculoskeletal, Integumentary, Endocrine and Eyes/Ears/Nose/Throat Exam Surgical H&P Exam: Normal: HEENT, Normal: Heart, Normal: Lungs, Normal: Extremities, Normal: Abdomen, Normal: Skin and Normal: Neurological Plan Diagnosis/Plan: Unchanged (right ESWL) I have reviewed the history and physical and performed a pertinent physical examination on my patient. No changes have occurred unless specified. Time Spent With Patient Time: Total time managing care of this patient today ____ minutes.
--- NOTE | 2025-01-03 07:36 | P.OP_ITS ---
Operative Note Operative Note Date of Service: 01/03/25 Narrative: PreOperative Diagnosis: Right Renal stones Post Operative Diagnosis: Right Renal stones Procedure: Right ESWL Surgeon: Dr Juan Grant Anesthesia: mac/sedation Indications for procedure: The patient understands ESWL may be a staged procedure and subsequent intervention may be required based on imaging after ESWL. Quoted stone clearance rates for a solitary procedure are in the 70-80% range based primarily on stone location. They also understand there is a risk of bleeding to the kidney, infection, damage to adjacent organs, and stone migration following the procedure. - Imaging 12 mm UPJ/renal pelvic stone Procedure optimization has been performed with IV acetaminophen given in the holding area and 1 L of lactated Ringer's to be given in order to optimize the fluid-stone interface. 20 mg of IV Lasix will be given in the last 5 minutes of the procedure to optimize stone clearance. Procedure: After informed consent was verified the patient was brought to the operating room and placed in a supine position. Anesthesia was performed per protocol. Safety pause time-out was performed. Imaging was displayed in the room and laterality confirmed. ESWL was performed. The 1st 500 shocks were performed at 60 hertz. These were performed with increasing power. Once maximum power was reached the rate was increased to 180 hertz. A total of 2500 shocks were given. Targeted imaging with ultrasound/fluoroscopy showed stone smudging suggestive of disintegration. The patient tolerated the procedure well and was transferred to the recovery area upon completion. Post procedure imaging will be organized. There was no ronald dence for flank discoloration.
[2025-01-03 08:00] VITALS: BP 149/61; PULSE 70; RESP 18; TEMP 36.4; O2SAT 98
[2025-01-03 08:05] VITALS: BP 129/64; PULSE 70; RESP 18; O2SAT 98
[2025-01-03 08:10] VITALS: BP 129/59; PULSE 70; RESP 18; O2SAT 97
[2025-01-03 08:15] VITALS: BP 130/60; PULSE 71; RESP 18; O2SAT 97
[2025-01-03 08:30] VITALS: BP 131/67; PULSE 71; RESP 18; TEMP 36.9; O2SAT 98
== END 2025-01-03 09:53 | disposition home or self-care (01) ==
PROVIDERS: PCP Family Medicine; Visit Provider Urology
PROC: (CPT 50590; principal; 2025-01-03 07:30)
DX: N20.0 Calculus of kidney (principal); I10 Essential (primary) hypertension; I48.19 Other persistent atrial fibrillation; I70.0 Atherosclerosis of aorta; Z95.818 Presence of other cardiac implants and grafts; D64.9 Anemia, unspecified; K21.9 Gastro-esophageal reflux disease without esophagitis; Z85.3 Personal history of malignant neoplasm of breast; Z79.82 Long term (current) use of aspirin; Z79.51 Long term (current) use of inhaled steroids; Z79.899 Other long term (current) drug therapy; Z88.1 Allergy status to other antibiotic agents; Z98.890 Other specified postprocedural states; Z87.891 Personal history of nicotine dependence
CPT/HCPCS: 50590; 74018; J0131; J1938; J2003; J2704; J3010

== ENCOUNTER → 2025-01-03 05:49 | Outpatient (BNV) | payer MEDICARE, SELFPAY | PROVIDERS: PCP Family Medicine; Visit Provider Urology | DX: N20.0 Calculus of kidney (principal) | CPT/HCPCS: 50590 ==

== ENCOUNTER → 2025-01-03 05:56 | Outpatient (BNV) | payer MEDICARE, SELFPAY | PROVIDERS: PCP Family Medicine; Visit Provider Radiology Diagnostic Radiology | DX: N20.0 Calculus of kidney (principal) | CPT/HCPCS: 74018 ==

== ENCOUNTER 2025-01-04 11:06 | Emergency (ER) | payer MEDICARE, SELFPAY ==
--- NOTE | ~2025-01-04 | XR_ITS ---
EXAMINATION: XR HIP, LEFT CLINICAL INFORMATION: fall, pain, groin pain COMPARISON: None available. TECHNIQUE: AP pelvis, AP and frog-leg lateral views of the left hip. FINDINGS: Vertically oriented area of lucency, buckling, sclerosis is present paralleling the pubic symphysis joint and involving the left pubic bone consistent with a fracture. There is severe axial joint space narrowing of the right hip joint space. There is moderate axial joint space narrowing on the left. There is faint chondral calcinosis in both hip joints. There is chronic calcinosis in the pubic symphysis disc. Femoral head neck junction is mildly obscured by posterior wall acetabulum overlapping this region. XR/XR hip LT min 2V IMPRESSION: Acute left pubic bone fracture. 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 Electronically signed by: Aquilino Duenas MD 01/04/2025 01:27 PM EDT
--- NOTE | ~2025-01-04 | XR_ITS ---
EXAMINATION: XR TIBIA FIBULA 2 VIEWS LEFT, XR ANKLE 1-2 VIEWS LEFT HISTORY: Pain, distal tib/fib COMPARISON: There are no prior studies available for comparison. FINDINGS: AP and lateral views of the left tibia, fibula, and ankle are submitted. The bones are osteopenic. There is no fracture or dislocation. There is degenerative change of the knee. There is vascular calcification. XR/XR ankle LT 2V IMPRESSION: Osteopenia. No evidence of fracture of the left tibia, fibula, or ankle. Electronically signed by: Aba Dominguez MD 01/04/2025 01:16 PM EDT
--- NOTE | ~2025-01-04 | XR_ITS ---
EXAMINATION: XR KNEE, LEFT CLINICAL INFORMATION: fall, pain L knee COMPARISON: None available. TECHNIQUE: AP and lateral views of the left knee. FINDINGS: There is osteopenia. There is no joint effusion. There is mild narrowing of medial greater than lateral joint space. There is chondrocalcinosis in the medial and lateral joint spaces. There are large lateral joint line marginal osteophytes. There are smaller osteophytes in the medial compartment and patellofemoral joint. There is moderate atherosclerotic calcifications. XR/XR knee LT 2V IMPRESSION: No acute fracture. 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 Electronically signed by: Aquilino Duenas MD 01/04/2025 01:29 PM EDT
--- NOTE | ~2025-01-04 | CT_ITS ---
EXAMINATION: CT HEAD WITHOUT CONTRAST CLINICAL INFORMATION: Fall. Head strike. COMPARISON: 10/21/2023, 02/05/2023. TECHNIQUE: Contiguous axial imaging was performed from the skull base to vertex without intravenous administration of contrast. This CT examination was performed using dose optimization techniques as appropriate, variously including the following: *Automated exposure control *Adjustment of mA and/or kV according to patient size (this includes techniques or standardized protocols for targeted exams where dose is matched to indication/reason for exam; i.e. extremities or head) *Use of iterative reconstruction technique FINDINGS: There is no evidence of intracranial hemorrhage or extra-axial fluid collection. There is no mass effect, or edema. No CT evidence of acute territorial infarct. Ventricles, sulci, and cisterns are diffusely prominent in keeping with age related cerebral and cerebellar volume loss. No hydrocephalus. No midline shift. Negative hyperdense MCA sign. Negative insular ribbon sign. Patchy periventricular and deep white matter hypoattenuation is consistent with moderate to severe small vessel ischemic changes. There are old lacunar type infarcts in the bilateral gangliocapsular regions right greater than left. Normal pituitary. Atheromatous calcification of the bilateral carotid siphons and V4 segments vertebral arteries bilaterally. Globes and orbital contents image normally. There are bilateral lens replacements. No extracranial soft tissue abnormalities. The paranasal sinuses, mastoid air cells, and tympanic cavities are normally aerated. There is sclerosis of the right mastoid tip. No suspicious bony abnormalities. There are no acute fractures evident. CT/CT head/brain wo IV con IMPRESSION: 1. No acute intracranial abnormality. No fracture evident. 2. Moderate to severe white matter small vessel ischemic changes. Electronically signed by: Lee Ibarra MD 01/04/2025 03:40 PM EDT
--- NOTE | ~2025-01-04 | XR_ITS ---
EXAMINATION: XR TIBIA FIBULA 2 VIEWS LEFT, XR ANKLE 1-2 VIEWS LEFT HISTORY: Pain, distal tib/fib COMPARISON: There are no prior studies available for comparison. FINDINGS: AP and lateral views of the left tibia, fibula, and ankle are submitted. The bones are osteopenic. There is no fracture or dislocation. There is degenerative change of the knee. There is vascular calcification. XR/XR tibia fibula LT 2V IMPRESSION: Osteopenia. No evidence of fracture of the left tibia, fibula, or ankle. Electronically signed by: Aba Dominguez MD 01/04/2025 01:16 PM EDT
--- NOTE | ~2025-01-04 | CT_ITS ---
EXAMINATION: CT PELVIS WITHOUT CONTRAST CLINICAL INFORMATION: Fall with left inguinal pain COMPARISON: November 22, 2024 CT and a same day x-ray TECHNIQUE: Helical scanning was performed with submillimeter collimation through the pelvis. Sagittal and coronal multiplanar 2-D reconstructions were obtained. This CT examination was performed using dose optimization techniques as appropriate, variously including the following: *Automated exposure control *Adjustment of mA and/or kV according to patient size (this includes techniques or standardized protocols for targeted exams where dose is matched to indication/reason for exam; i.e. extremities or head) *Use of iterative reconstruction technique FINDINGS: PELVIS: Moderate stool is present in the colon. There is high attenuation in the right kidney that could represent a stone. OSSEOUS STRUCTURES: There is diffuse osteopenia. Again seen is a fracture through the left pubic bone extending into the superior pubic ramus. No other fractures are evident. There is moderate degenerative change in the left greater than right SI joints. There is moderate axial joint space narrowing in both hip joints and small marginal osteophytes. There is faint chondrocalcinosis involving the left greater than right hip joint. 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 L4-5 demonstrates grade 1 anterolisthesis and severe facet arthropathy. There is also vacuum phenomenon in the disc space. CT/CT pelvis wo IV con IMPRESSION: Acute insufficiency fracture involving the left pubic bone extending into the left superior pubic ramus. Right kidney stone in the lower pole is partially imaged. Electronically signed by: Aquilino Duenas MD 01/04/2025 03:43 PM EDT
--- NOTE | ~2025-01-04 | XR_ITS ---
EXAMINATION: XR FEMUR, LEFT CLINICAL INFORMATION: fall, pain proximal femur COMPARISON: None available. TECHNIQUE: AP and lateral views of the left femur were obtained. FINDINGS: On lateral view, in the proximal diaphysis of the humerus, anteriorly, there is a cyst in the density of the bone probably involving the cortex probably related to summation artifact and linear trabeculation pattern through the medullary space. No corresponding abnormality is evident in the same region on the frontal view. Moderate arterial vascular calcifications are present. XR/XR femur LT 1V IMPRESSION: Probable artifact and trabecular changes involving the anterior proximal diaphysis of the femur on the lateral projection. Correlate clinically for focal tenderness. Follow-up CT without contrast if indicated. Electronically signed by: Aquilino Duenas MD 01/04/2025 01:30 PM EDT
[2025-01-04 11:11] VITALS: BP 120/65; BP 127/64; PULSE 70; PULSE 72; RESP 20; TEMP 36.8; O2SAT 96; O2SAT 99; BMI 18.3
--- NOTE | 2025-01-04 11:26 | ED_ITS ---
HPI - General Adult General Chief complaint: Fall Stated complaint: fall from standing yesterday Time Seen by Provider: 01/04/25 11:08 Source: patient Mode of arrival: EMS Limitations: no limitations History of Present Illness ED Provider: Bradley Naranjo PA-C HPI narrative: A 84-year-old female with medical history of pacemaker, Watchman device, asthma, nephrolithiasis, CAD, anemia, incarcerated femoral hernia, HTN, GERD, AFib, not on AC, on daily aspirin, presents to the ED due to fall yesterday. Patient states she had a lithotripsy procedure done yesterday with Dr. Grant, states handled the procedure well and felt fine after procedure. Patient states later on in the evening she had a fall but can not recall mechanism of fall. Patient states before the fall she was not experiencing any dizziness, lightheadedness, headaches, patient does not remember falling, but remembers immediately after the fall and hitting her head on sliding glass door. Patient states she was on the ground for a few minutes, was home to help her back up to her feet. Immediately after the fall she began experiencing left-sided groin total leg pain with some blurry vision that went away immediately after the fall. Patient stated afterwards she was having difficulty walking and bearing weight on the left leg due to pain. Took Tylenol with minimal effect. Patient states she went to bed and was hoping she would wake up with pain relief. Woke up this morning and was still experiencing left leg pain and groin pain and was unable to ambulate. Patient states when she is sitting still she is not experiencing any pain, when she tries to arrange, move or walk on the left leg she experiences moderate pain. Patient states she was prescribed narcotic medication yesterday but did not tack picker her prescription, did not take any narcotic pain meds yesterday prior to fall. Patient reports yesterday she experience urine with blood, and thinks she may have had an episode of urine with blood this morning but can not remember. Denies chest pain, shortness of breath, nausea, vomiting, headache, blurry vision, lightheadedness, dizziness, urinary symptoms MD complaint: fall, L leg pain Onset (ago): hour(s) (12) Related Data Home Medications ?Medication ?Instructions ?Recorded ?Confirmed citalopram 20 mg tablet 20 mg PO DAILY 10/29/2312/19 diltiazem HCl 360 mg 360 mg PO DAILY 10/29/23 capsule,extended release 24 hr pantoprazole 40 mg tablet,delayed 40 mg PO DAILY@0630 10/29/23 01/04/25 release acetaminophen 325 mg tablet 975 mg PO Q6H PRN pain 01/04/25 aspirin 81 mg tablet,delayed 81 mg PO DAILY 08/31/24 0 01/04/25 release gabapentin 100 mg capsule 100 mg PO QD-BID PRN Pain 01/04/25 losartan 25 mg tablet 25 mg PO DAILY 08/31/2412/19 albuterol 90 mcg-budesonide 80 2 inh inhalation Q4-6H PRN wheezing 12/29/24 01/04/25 mcg/actuation HFA aerosol inhaler (Airsupra) fluticasone fur. 200 mcg-umeclid 1 ea inhalation DAILY 12/29/24 01/04/25 62.5 mcg-vilant 25 mcg inhalat.powder (Trelegy Ellipta) Allergies Allergy/AdvReac Type Severity Reaction Status Date / Time amoxicillin (From Augmentin) Allergy Mild Nausea Verified 01/04/25 11:26 clavulanic acid (From Allergy Mild Nausea Verified 01/04/25 11:26 Augmentin) Review of Systems 2 Review of Systems: CONST: Negative for fever, body aches and chills. HENT: Negative for neck pain/stiffness, headache, congestion, sore throat, swelling. EYES: Negative for discharge/pain or vision changes. RESP: Negative for cough/hemoptysis and shortness of breath. CV: Negative chest pain, difficulty breathing, palpitations. ABD: Negative pain, nausea, vomiting. : Negative increase frequency, dysuria, blood in urine or stool. MUSC: Negative for muscle aches, edema. POS L groin, L proximal femur, L distal Tibia, L ankle pain. SKIN: Negative rash, lesions/sores. NEURO: Negative headache, dizziness, weakness. [facility] Past Medical History Attestation statement: The following information was validated with the patient. Source: old records reviewed and nursing notes reviewed Medical History Presence of Watchman left atrial appendage closure device Osteoarthritis Breast cancer Nephrolithiasis Asthma Aortic atherosclerosis Anxiety Anemia Incarcerated femoral hernia HTN (hypertension) GERD (gastroesophageal reflux disease) Persistent atrial fibrillation Surgical History History of radiofrequency ablation (RFA) procedure for cardiac arrhythmia Hx of appendectomy Hx of hysterectomy History of lumpectomy of left breast Hx of bilateral cataract extraction History of esophagogastroduodenoscopy (EGD) History of femoral hernia repair S/P cardiac pacemaker procedure History of surgery on left wrist Social History Social History Household Members: Spouse Housing: Condominium Do you presently have visiting nurse or other home services: No Alcohol intake: former Patient Tobacco Use Status: Former Tobacco user Tobacco use type: Cigarette Smoked in Last 30 Days: No Use of substances other than those prescribed or required for medical reasons: No Advance Directives: Yes Advance Directives on File: Yes Advance Directives Date on File: 01/06/25 service: No Current occupational status: retired Current occupation: right hand dominant Physical Exam ED Vital Signs: Vital Signs - 24 hr 01/05/25 18:29 01/05/25 19:25 01/05/25 21:24 Temperature 100.2 F 97.2 F Pulse Rate 70 75 Respiratory Rate 16 18 18 Blood Pressure 122/55 L 116/49 L Pulse Oximetry 98 98 Oxygen Delivery Method Room Air Room Air 01/05/25 21:25 01/06/25 06:00 01/06/25 07:33 Temperature 96.9 F 97.6 F Pulse Rate 60 69 Respiratory Rate 18 18 18 Blood Pressure 138/55 L 104/46 L Pulse Oximetry 95 97 Oxygen Delivery Method Room Air Room Air 01/06/25 08:06 01/06/25 09:00 01/06/25 09:02 Temperature Pulse Rate 69 70 Respiratory Rate 18 Blood Pressure 86/40 L 93/41 L Pulse Oximetry Oxygen Delivery Method 01/06/25 13:55 Temperature 97.4 F Pulse Rate 75 Respiratory Rate 16 Blood Pressure 97/42 L Pulse Oximetry 98 Oxygen Delivery Method Room Air BMI result Body Mass Index 18.3 GENERAL APPEARANCE: ?AxOx4, generally well-appearing, no acute distress. HEENT: ?NC, AT. MMM. EOMI, clear conjunctiva, oropharynx clear. NECK: ?Supple without lymphadenopathy.? No stiffness or restricted ROM. HEART:? Normal rate and regular rhythm, normal S1/S1, no m/r/g LUNGS:? CTAB, moving air well. No crackles or wheezes are heard. ABDOMEN: ?Soft, nontender, nondistended with good bowel sounds heard. BACK: No CVAT, no obvious deformity. EXTREMITIES: ?Without cyanosis, clubbing or edema. TTP over L groin, without evidence of hernia, no palpable masses, ecchymosis erythema or edema, TTP over left proximal femur, small ecchymosis of lateral femur. TTP over left knee, left ankle without edema, skin changes. DP pulses 2+ bilaterally. Strength 3/5 on left side due to pain, ROM intact, pain with ROM. NEUROLOGICAL: ?Grossly nonfocal. Alert and oriented, moving all 4 extremities. Can not assess ambulation as patient can not weight bear on left leg. Skin: ?Warm and dry without any rash. Course Reevaluation(s) Reevaluation #1: Patient continues to be an observation for PT case management evaluation after tripping and falling and sustaining pubic ramus fracture. Time: 07:59 Reevaluation #2: Time: 08:48 Date: 01/05/25 Provider: Kayla Bills CNP Patient in physician observation for case management needs, pending physical therapy re-evaluation today. No acute events reported overnight.? No current issues or complaints. VS stable. Will continue to monitor. Med Gucci was completed for patient this morning. At this time she has a mean nursing staff aware that she was recently prescribed Cipro, naproxen, tamsulosin, and tramadol after having a lithotripsy on 01/03/2025. On review of medical records she underwent ESWL on 01/03/[address] Grant for an imaged 12 mm UPJ/renal pelvic stone. Med rec to be updated accordingly 01/06/2025 Lizz Robert PA-C [id number] ---> Observation continues. Case management continues to follow. Blood pressures on the softer side this morning - morning HTN meds held. 01/06/2025 Lizz Robert PA-C [id number] ---> Observation care revealed the the patient does not meet medical necessity for hospitalization. Final disposition of discharge to [facility] discussed with the patient. Patient completed observation care at 1433. Medications Administered Generic Name Dose Route Start Last Admin Trade Name Freq PRN Reason Stop Dose Admin Acetaminophen 975 mg 01/05/25 08:45 01/06/25 13:09 Acetaminophen 325 Mg Tablet PO 975 mg Q6H PRN Administration Pain, Mild 1-3,fever,headache Aspirin 81 mg 01/05/25 09:00 01/06/25 09:34 Aspirin Enteric Coated 81 Mg Tablet.Dr PO 81 mg DAILY MIRIAN Administration Diltiazem HCl 360 mg 01/05/25 09:00 01/06/25 09:18 Diltiazem Hcl Cd 180 Mg Cap.Er.24h PO Not Given DAILY MIRIAN Protocol Escitalopram Oxalate 10 mg 01/05/25 09:00 01/06/25 09:34 Escitalopram Oxalate 10 Mg Tablet PO 10 mg DAILY MIRIAN Administration Fluticasone/Umeclidinium/Vilanterol 1 puff 01/05/25 09:00 01/06/25 07:59 Fluticasone/Umeclidinium/Vilanterol 200/62.5/25 Blst.W.Dev INHALE 1 puff RDAILY MIRIAN Administration Levofloxacin 250 mg 01/05/25 10:00 01/06/25 09:34 Levofloxacin 250 Mg Tablet PO 01/09/25 09:01 250 mg DAILY MIRIAN Administration Losartan Potassium 25 mg 01/05/25 09:00 01/06/25 09:19 Losartan Potassium 25 Mg Tablet PO Not Given DAILY MIRIAN Protocol Omeprazole 20 mg 01/05/25 09:00 01/06/25 06:31 Omeprazole 20 Mg Capsule. PO 20 mg DAILY@0630 [facility] Administration Oxycodone HCl 5 mg 01/04/25 16:26 01/06/25 13:07 Oxycodone Hcl Immed Release 5 Mg Tablet PO 5 mg Q6H PRN Administration Pain, Severe (Pain Scale 7-10) Tamsulosin HCl 0.4 mg 01/05/25 21:00 01/05/25 20:25 Tamsulosin Hcl 0.4 Mg Capsule PO 0.4 mg BEDTIME [facility] Administration Discontinued Medications Generic Name Dose Route Start Last Admin Trade Name Lanceq PRN Reason Stop Dose Admin Acetaminophen 975 mg 01/04/25 11:29 01/04/25 11:41 Acetaminophen 325 Mg Tablet PO 01/04/25 11:30 975 mg ONCE ONE Administration Budesonide 0.5 mg 01/05/25 09:30 01/05/25 09:45 Budesonide 0.5 Mg/2 Ml Ampul.Neb INHALE 01/05/25 09:31 0.5 mg ONCE ONE Administration Medical Decision Making Medical Decision Making MDM Narrative: A 84-year-old female with medical history of pacemaker, Watchman device, asthma, nephrolithiasis, CAD, anemia, incarcerated femoral hernia, HTN, GERD, AFib, not on AC, on daily aspirin, presents to the ED due to fall yesterday. Patient states she had a lithotripsy procedure done yesterday with Dr. Grant, states handled the procedure well and felt fine after procedure. Patient states later on in the evening she had a fall but can not recall mechanism of fall. Patient states before the fall she was not experiencing any dizziness, lightheadedness, headaches, patient does not remember falling, but remembers immediately after the fall and hitting her head on sliding glass door. Patient states she was on the ground for a few minutes, was home to help her back up to her feet. Immediately after the fall she began experiencing left-sided groin total leg pain with some blurry vision that went away immediately after the fall. Patient stated afterwards she was having difficulty walking and bearing weight on the left leg due to pain. Took Tylenol with minimal effect. Patient states she went to bed and was hoping she would wake up with pain relief. Woke up this morning and was still experiencing left leg pain and groin pain and was unable to ambulate. Patient states when she is sitting still she is not experiencing any pain, when she tries to arrange, move or walk on the left leg she experiences moderate pain. Patient states she was prescribed narcotic medication yesterday but did not tack picker her prescription, did not take any narcotic pain meds yesterday prior to fall. Patient reports yesterday she experience urine with blood, and thinks she may have had an episode of urine with blood this morning but can not remember. VSS, normotensive, no shortness a breath or tachypnea, 99% on room air, no increased work of breathing. On physical exam lungs CTA bilaterally, cardiac exam reveals normal rate and rhythm without murmurs/ rubs /gallops. No abdominal pain to palpation, good bowel sounds heard. TTP over L groin, without evidence of hernia, no palpable masses, ecchymosis erythema or edema, TTP over left proximal femur, small ecchymosis of lateral femur. TTP over left knee, left ankle without edema, skin changes. DP pulses 2+ bilaterally. Strength 3/5 on left side due to pain, ROM intact, pain with ROM. Awaiting labs/UA EKG reveals ventricularly placed rhythm with T inversions in AVL which are evidnet in prior EKGs. No ST/elevations or depressions. Will obtain troponin. Due to groin and L leg pain will obtain imaging of L hip, femur, tib/fib, and ankle. Will evaluate with CT head/brain to R/O bleed after fall with headstrike. Course 12:37- labs without leukocytosis, reveal normocytic anemia with H&H 8.9/27.7, these values are around patient's baseline. Electrolytes WNL. PT INR WNL. Initial troponin 14.8, Will obtain 2nd troponin to evaluate for significant delta. Patient without chest pain- less likley ACS. Awaiting UA 14:00- x-ray reveals left pubic bone fracture, with CPPD of the knee and hip and radiologist recommended further evaluation with CT of femur. I reached out to orthopedics Gianluca Smith PA-C who recommended NWB and follow up in office. Patient states her pain is well controlled at this time. Awaiting head/brain, femur CT 16:28- 2nd troponin flat at 13.6 Physician observation initiated. Head/brain CT negative for ICH/fracture. 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 These findings were discussed with patient and I encouraged her to follow up with her PCP for further evaluation. Considered giving prednisone for CPPD of L hip and knee, patient osteopenic so use of steroids is contraindicated. Patient med list with tramadol and naproxen, we will not start on additional NSAIDs at this time. Counseled patient on pseudogout, encouraged her to follow up with her primary care provider and states she has an appointment with them next week. Patient is primary caregiver in her home, has Alzheimer's disease, patient is the only one who drives. Will need short rehab stay for improvement. Currently awaiting PT evaluation which will happen tomorrow morning, and case management evaluation for short-term rehab stay. Patient complaining of increased left-sided hip pain, will medicate with 5 mg oxycodone. 21:45- Patient resting comfortably, awaiting PT/case managment in the morning. Patient signed out to my colleague Lee Ramirez PA-C who will resume care of the patient. patient is aware. Differential Diagnosis Differential Diagnoses: The differential diagnosis associated with the presentation includes Hip fracture Knee fracture Femur fracture Tibia fracture Strain of left leg ACS Electrolyte abnormality Admission/Observation Consideration of admission/observation: Escalation of care including admission/observation considered Lab Data MDM Lab Attestation statement: I reviewed the patient's lab results. 01/04/25 11:54 01/04/25 11:54 Labs: Lab Results 01/04/25 01/04/25 01/05/25 Range/Units 11:54 14:20 11:01 WBC 9.4 (4.8-10.8) X10*3/uL RBC 3.22 L (4.20-5.50) X10*6/uL Hgb 8.9 L (12.0-16.0) g/dl Hct 27.7 L (37.0-47.0) % MCV 86.0 (80.0-98.0) fL MCH 27.6 (27.0-33.0) pg MCHC 32.1 (31.0-35.0) g/dl RDW 16.5 H (11.0-16.0) % Plt Count 213 (160-400) X10*3/uL MPV 10.4 (9.4-12.3) fL Immature Gran % (Auto) 0.5 H (0.0-0.4) % Neut % (Auto) 84.8 H (45-73) % Lymph % (Auto) 7.2 L (20-40) % [place] % (Auto) 6.0 (2-11) % Eos % (Auto) 1.3 (0-4) % Baso % (Auto) 0.2 (0-2) % Lymph # (Auto) 0.7 L (1.2-4.9) X10*3/uL [place] # (Auto) 0.6 (0.1-1.2) X10*3/uL Eos # (Auto) 0.1 (0.0-0.4) X10*3/uL Baso # (Auto) 0.0 (0.0-0.2) X10*3/uL Abs Immat Gran (auto) 0.05 H (0.00-0.03) X10*3/uL Absolute Neuts (auto) 8.0 (2.0-8.3) x10*3/uL Absolute Nucleated RBC 0.000 (0.0-0.012) X10*3/uL Nucleated RBC % (auto) 0.0 (0.0-0.2) /100WBC PT 12.5 H (10.9-12.4) SEC INR 1.1 (0.9-1.1) Sodium 145 (135-145) mmol/L Potassium 4.7 D (3.3-5.1) mmol/L Chloride 112 H (96-108) mmol/L Carbon Dioxide 28 (22-29) mmol/L Anion Gap 10 L (12-20) BUN 23 H (9-16) mg/dL Creatinine 0.89 (0.5-1.4) mg/dL Estim Creat Clear Calc 34.3 Estimated GFR > 60 Random Glucose 94 (60-115) mg/dL Calcium 9.2 (8.4-10.2) mg/dL Magnesium 2.1 (1.6-2.6) mg/dL Total Bilirubin 0.4 (0.0-1.0) mg/dL AST 38 H (5-31) U/L ALT 33 H (0-31) U/L Alkaline Phosphatase 63 (39-117) U/L Total Creatine Kinase 43 (26-140) U/L Troponin I High Sens 14.8 13.6 (<3.5-17.0) ng/L Total Protein 6.3 L (6.5-8.0) g/dL Albumin 3.6 (3.5-5.0) g/dL Urine Color Yellow Urine Appearance Turbid Urine pH 6.0 (5.0-9.0) Ur Specific [place] 1.015 (1.005-1.025) Urine Protein 100 (2+) H (Neg-Trace) mg/dL Urine Glucose (UA) Negative (Negative) mg/dL Urine Ketones Negative (Negative) mg/dL Urine Blood Large (3+) H (Negative) Urine Nitrite Negative (Negative) Ur Leukocyte Esterase Large (3+) H (Negative) Urine RBC 0-2 (0-2) /HPF Urine WBC >50 H (0-5) /HPF Ur Squamous Epith Cells 0-2 (0-2) /HPF Urine Bacteria Trace (None Seen) Hyaline Casts 0-2 (0-2) /LPF Urine Yeast Present Independent Interpretation I performed an independent interpretation of an: EKG and Plain X-Ray Interpretation: I independently interpreted the EKG Ventricularly paced rhythm without ST/elevations, depression. T wave inversions of AVL which are present in prior EKG Vent. Rate : 70 BPM Atrial Rate : 70 BPM P-R Int : * ms QRS Dur : 124 ms QT Int : 440 ms P-R-T Axes : * 258 82 degrees QTcB Int : 475 ms Ventricular-paced rhythm Abnormal ECG When compared with ECG of 31-Aug-2024 13:15, No significant change was found I independently interpreted the x-ray of hip, knee, tib/fib, ankle which reveals L pubic bone fracture, I agree with the radiologist's findings Radiology Impression Discussion of test interpretation with radiology: I have reviewed the radiologist's reading. Radiologist Impression: CT head/brain XR L Hip FINDINGS: Vertically oriented area of lucency, buckling, sclerosis is present paralleling the pubic symphysis joint and involving the left pubic bone consistent with a fracture. There is severe axial joint space narrowing of the right hip joint space. There is moderate axial joint space narrowing on the left. There is faint chondral calcinosis in both hip joints. There is chronic calcinosis in the pubic symphysis disc. Femoral head neck junction is mildly obscured by posterior wall acetabulum overlapping this region. XR/XR hip LT min 2V IMPRESSION: Acute left pubic bone fracture. 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 Electronically signed by: Aquilino Duenas MD 01/04/2025 01:27 PM EDT RP Dictated By: Aquilino Duenas MD Signed By: <Electronically signed by Aquilino Duenas MD in [place]> 01/04/25 1327 XR L femur FINDINGS: On lateral view, in the proximal diaphysis of the humerus, anteriorly, there is a cyst in the density of the bone probably involving the cortex probably related to summation artifact and linear trabeculation pattern through the medullary space. No corresponding abnormality is evident in the same region on the frontal view. Moderate arterial vascular calcifications are present. XR/XR femur LT 1V IMPRESSION: Probable artifact and trabecular changes involving the anterior proximal diaphysis of the femur on the lateral projection. Correlate clinically for focal tenderness. Follow-up CT without contrast if indicated. Electronically signed by: Aquilino Duenas MD 01/04/2025 01:30 PM EDT Dictated By: Aquilino Duenas MD Signed By: <Electronically signed by Aquilino Duenas MD in OV> 01/04/25 1330 XR L tib/fib FINDINGS: AP and lateral views of the left tibia, fibula, and ankle are submitted. The bones are osteopenic. There is no fracture or dislocation. There is degenerative change of the knee. There is vascular calcification. XR/XR tibia fibula LT 2V IMPRESSION: Osteopenia. No evidence of fracture of the left tibia, fibula, or ankle. Electronically signed by: Aba Dominguez MD 01/04/2025 01:16 PM EDT RP Dictated By: Aba Dominguez MD Signed By: <Electronically signed by Aba Dominguez MD in OV> 01/04/25 1316 XR L ankle FINDINGS: AP and lateral views of the left tibia, fibula, and ankle are submitted. The bones are osteopenic. There is no fracture or dislocation. There is degenerative change of the knee. There is vascular calcification. XR/XR ankle LT 2V IMPRESSION: Osteopenia. No evidence of fracture of the left tibia, fibula, or ankle. Electronically signed by: Aba Dominguez MD 01/04/2025 01:16 PM EDT RP Dictated By: Aba Dominguez MD Signed By: <Electronically signed by Aba Dominguez MD in OV> 01/04/25 1316 XR L Knee FINDINGS: There is osteopenia. There is no joint effusion. There is mild narrowing of medial greater than lateral joint space. There is chondrocalcinosis in the medial and lateral joint spaces. There are large lateral joint line marginal osteophytes. There are smaller osteophytes in the medial compartment and patellofemoral joint. There is moderate atherosclerotic calcifications. XR/XR knee LT 2V IMPRESSION: No acute fracture. 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 Electronically signed by: Aquilino Duenas MD 01/04/2025 01:29 PM EDT RP Dictated By: Aquilino Duenas MD Signed By: <Electronically signed by Aquilino Duenas MD in OV> 01/04/[address] pelvis FINDINGS: PELVIS: Moderate stool is present in the colon. There is high attenuation in the right kidney that could represent a stone. OSSEOUS STRUCTURES: There is diffuse osteopenia. Again seen is a fracture through the left pubic bone extending into the superior pubic ramus. No other fractures are evident. There is moderate degenerative change in the left greater than right SI joints. There is moderate axial joint space narrowing in both hip joints and small marginal osteophytes. There is faint chondrocalcinosis involving the left greater than right hip joint. 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 L4-5 demonstrates grade 1 anterolisthesis and severe facet arthropathy. There is also vacuum phenomenon in the disc space. CT/CT pelvis wo IV con IMPRESSION: Acute insufficiency fracture involving the left pubic bone extending into the left superior pubic ramus. Right kidney stone in the lower pole is partially imaged. Electronically signed by: Aquilino Duenas MD 01/04/2025 03:43 PM EDT RP Dictated By: Aquilino Duenas MD Signed By: <Electronically signed by Aquilino Duenas MD in [place]> 01/04/25 1543 External Record Review External record reviewed: Inpatient record, Office record and Outpatient record Prescription Management I considered prescription management with: Other (Prednisone) I considered use of prednisone for CPPD of hip and left knee, decided against this as patient is osteopenic and is contraindicated. Considered starting NSAID, patient is already prescribed tramadol and naproxen after lithotripsy. Patient does not need additional NSAID therapy. Chronic Conditions Patient?s care impacted by: Hypertension and Other (Pacemaker, Watchman device, anemia, nephrolithiasis, GERD) Discharge Plan Discharge Clinical Impression: Pubic bone fracture Patient Disposition: Xfer SNF Transfer Details: [facility] Instructions: Pelvic Fracture (ED) Additional Instructions: Follow up with your primary care provider and the orthopedic team. Return to the emergency department immediately if your symptoms worsen or if you develop any numbness, tingling, dizziness, shortness of breath, difficulty breathing, chest pain, blurry vision, loss of vision, nausea, vomiting, abdominal pain, fever, chills, back pain, or any other complaints. Prescriptions: No Action Trelegy Ellipta 200-62.5-25 mcg blister with device 1 ea inhalation DAILY Airsupra 90-80 mcg/actuation HFA aerosol inhaler 2 inh INHALATION Q4-6H PRN (Reason: wheezing) acetaminophen 325 mg tablet 975 mg PO Q6H PRN (Reason: pain) losartan 25 mg tablet 25 mg PO DAILY gabapentin 100 mg capsule 100 mg PO QD-BID PRN (Reason: Pain) aspirin 81 mg Tablet,Delayed Release (Dr/Ec) 81 mg PO DAILY citalopram 20 mg tablet 20 mg PO DAILY diltiazem HCl 360 mg capsule,extended release 24hr 360 mg PO DAILY pantoprazole 40 mg tablet,delayed release (DR/EC) 40 mg PO DAILY@0630 Referrals: [facility] [Other] [facility] [Provider Group] Referral Note: L pubic bone fracture extending into L superior pubic ramus Print Language: Bulgarian
--- NOTE | 2025-01-04 11:27 | ECG_ITS ---
Test Reason : weakness Blood Pressure : */* mmHG Vent. Rate : 70 BPM Atrial Rate : 70 BPM P-R Int : * ms QRS Dur : 124 ms QT Int : 440 ms P-R-T Axes : * 258 82 degrees QTcB Int : 475 ms Ventricular-paced rhythm Abnormal ECG When compared with ECG of 31-Aug-2024 13:15, No significant change was found Referred By: Jose A Huerta Electronically Signed By: NADIA ABDI
[2025-01-04 11:59] LABS: MANUAL DIFF FLAG NO
--- NOTE | 2025-01-04 12:00 | PC.NURSE ---
Pt BIBA, shes alert and oriented. Stated she had a lithotripsy yesterday got D/C'd home. Then had a fall last night at home, tripped on her rug and hip head on her screen door. She had difficulty bearing weight on left leg but went to bed and hoped to wake up feeling better. She woke up this morning with pain in her left hip and down her left leg so she came to the ED. She had pain with with palpation to left hip. +CSM. Breathing unlabored, skin p/w/d. Denies headache, dizziness, cp. VSS. Purewick in place. She was medicated as charted, experiencing pain with movement, but denies pain while laying in bed. Fall precautions in place.
[2025-01-04 12:01] LABS: Hematocrit 27.7 % (37.0-47.0); Hemoglobin 8.9 g/dl (12.0-16.0); Imm Gran Abs Auto 0.05 X10*3/uL (0.00-0.03); Imm Gran Pct Auto 0.5 % (0.0-0.4); Lymphocytes Absolute Auto 0.7 X10*3/uL (1.2-4.9); Mean Corpuscular HGB Conc 32.1 g/dl (31.0-35.0); Mean Corpuscular Hemoglobin 27.6 pg (27.0-33.0); Mean Corpuscular Volume 86.0 fL (80.0-98.0); NRBC Abs Auto 0.000 X10*3/uL (0.0-0.012); NRBC Pct Auto 0.0 /100WBC (0.0-0.2); Platelet Count 213 X10*3/uL (160-400); Red Blood Count 3.22 X10*6/uL (4.20-5.50); White Blood Count 9.4 X10*3/uL (4.8-10.8)
[2025-01-04 12:14] LABS: INTERNATIONAL NORM RATIO 1.1 (0.9-1.1); Prothrombin Time 12.5 SEC (10.9-12.4)
[2025-01-04 12:26] LABS: Alanine Aminotransferase 33 U/L (0-31); Albumin Level 3.6 g/dL (3.5-5.0); Alkaline Phosphatase 63 U/L (39-117); Anion Gap 10 (12-20); Aspartate Amino Transferase 38 U/L (5-31); Blood Urea Nitrogen 23 mg/dL (9-16); Calcium 9.2 mg/dL (8.4-10.2); Carbon Dioxide 28 mmol/L (22-29); Chloride 112 mmol/L (96-108); Creatinine Clr Calc Pharmacy 34.3; Estimated Glomerular Filt Rate > 60; Magnesium 2.1 mg/dL (1.6-2.6); Potassium 4.7 mmol/L (3.3-5.1); Sodium 145 mmol/L (135-145); Total Protein 6.3 g/dL (6.5-8.0)
[2025-01-04 12:27] LABS: Troponin-I High Sensitivity 14.8 ng/L (<3.5-17.0)
--- OUTSIDE RECORDS SUMMARY | 2025-01-04 12:49 | XMS_ITS | Clinical Summary ---
Author Organization [facility] Address [address] [place] [address] Care Team Providers Care Food Safety Director Name Role Phone Unavailable Primary Care Provider [...] - 2023-2 5 season) 2024 Influenza (#1) 2025 HPV Vaccine Aged Out No longer eligi [...]
--- OUTSIDE RECORDS SUMMARY | 2025-01-04 12:49 | XMS_ITS ---
Author Name [facility] Organization Unknown Results Test Name/Text Value Interpretation Date Range Source GLUCOSE BLDC GLUCOMTR [facility]NC 94.0 mg/dL Normal 06/03/2023 70 - 199 [facility] BLD GP AB SCN SERPL QL NEGATIVE Normal 06/03/2023 [facility] BLOOD BANK CMNT PATIENT-IMP Testing performed at [facility], [address] [place] [address] [id number], Alona Rachel MD Mine Engineering Supervisor, [facility] [id number] Normal 06/03/2023 [facility] ABO+RH GP BLD O POSITIVE Normal 06/03/2023 CTT SFRAN History of Medication Use Medication Directions Dispensed Refills Start Date End Date Stat us dilTIAZem (TIAZAC) 360 mg 24 hr capsule TAKE 1 CAPSULE BY MOUTH DAILY 06/20/2024 active Problems Problem Status Onset Date Problem Type Date of Resolution Source Encounter for adjustment or management of cardiac device active EncounterDiagnosisAct CT_T HSFRAN Immunizations Vaccine Date Source Lot Number Status Pfizer SARS-CoV-2 COVID-19, mRNA, LNP-S, preservative free 04/24/2021 [facility] [id number] completed Pfizer SARS-CoV-2 COVID-19, mRNA, LNP-S, preservative free 08/16/2020 [facility] [id number] completed Pfizer SARS-CoV-2 COVID-19, mRNA, LNP-S, preservative free 07/26/2020 [facility] [id number] completed Encounters Encounter Type Encounter Reason Primary Diagnosis Location Date Inpatient Unspecified atrial fibrillation Unspecified atrial fibrillation [facility] [place]23 Care Team Organization Name Specialty Phone Email Start Date End Da te [facility] [place] [facility] 01/02/2025 [facility] [place] [facility] 06/03/2023
--- OUTSIDE RECORDS SUMMARY | 2025-01-04 12:49 | XMS_ITS | Clinical Summary ---
Author Organization [facility] Address [address] [place] [address] Care Team Providers Care Solar Panel Installation Supervisor Name Role Phone Unavailable Primary Care Provider [...] 66 06/04/2023 8:31 AM EST Temperature 36.9 C (98.4 F) 06/04/2023 8:00 AM EST Respiratory Rate 16 06/04/2023 4:00 AM EST [...] 2024 04/24/2021, 08/16/2020, 07/26/2020 Influenza Vaccine (#1) 2025 3, 04/09/2022, 04/24/2021, Additional history exists DTap [...] this topic Medical Devices Implanted Type Area Bag Bundler Device Identifier Shelf Expiration Date Model / Serial / Lot Device Clsur Watchman Flx Magda 27mm Bsci-Prnt [id number] - [id number] Implanted:Qty: 1 on 06/03/2023 by Alexandro Llanes MD at [facility] Med Left: Heart [employer] JOSE RAFAEL 03/01/2026 [id number] / / [id number] Description:Implanted in lef t atrial appendage. Advance Directives For more information, please contact: [phone] Documents on File Type Date Recorded Patient Community Reinvestment Act Officer Expl anation Advance Directive and Living Will [...]
--- OUTSIDE RECORDS SUMMARY | 2025-01-04 12:49 | XMS_ITS | Clinical Summary ---
Author Organization [address] [place] [address] [place] [phone] Phone Care Team Providers Care Candy Feeder Name Role Phone Bridgette Duffy MD Primary Care Provider [phone] Allergies Active Allergy Reactions Criticality Noted Date [...] Last Assessment & Plan: I spoke with Hattie about her atrial flutter which is likely [...] she agreed to have this done at [facility] [place]. She will agree to continue anticoagulation and we can reevaluate whether that is necessary to continue long-term based on her [id number] score and any evidence of recurrent arrhythmia. [...] Encounters Date Type Department Care Team Description 01/02/2025 8:40 AM EDT Office Visit [facility] - [address] [place] [address] Isaura Shelby, ALLIE Longstanding persistent atrial fibrillation (CMS/HCC V24, CMS/HCC V28) (Primary Dx) 12/18/2024 7:50 AM EDT Ancillary Procedure [facility] [address] [place] [address] 10/29/2024 Lab Requisition [facility] [address] [place] [phone] Connor Solitario MD Essential (primary) hypertension; Anemia, unspecified 10/26/2024 Lab Requisition [facility] [address] [place] [phone] Connor Solitario MD Anemia, unspecified 10/24/2024 Lab Requisition [facility] [address] [place] [phone] Connor Solitario MD Anemia, unspecified 10/23/2024 Lab Requisition [facility] [address] [place] [phone] Connor Solitario MD Essential (primary) hypertension; Anemia, unspecified; Unspecified atrial fibrillation (CMS/HCC V24, CMS/HCC V28) 10/21/2024 Lab Requisition [facility] [address] [place] [phone] Connor Solitario MD Essential (primary) hypertension; Unspecified atrial fibrillation (CMS/HCC V24, CMS/HCC V28); Anemia, unspecified from Last 3 Months Immunizations Name Administration Dates Next Due Pfizer SARS-CoV-2 COVID-19, mRNA, LNP-S, preservative free 04/24/2021,08/16/2020,07/26/2020 Surgical History Surgery Date Site/Laterality Comments OTHER SURGICAL HISTORY 10/14/2015 PROCEDURE: CT ENDOSCOPY UPPER SMALL INTESTINE CATARACT EXTRACTION PROCEDURE: HISTORICAL CATARACT REMOVAL; COMMENT: 12/19/14, 10/31/14 OTHER SURGICAL HISTORY 01/19/2014 PROCEDURE: HISTORY OTHER BREAST LUMPECTOMY 11/14/2013 PROCEDURE: HISTORICAL BREAST LUMPECTOMY OTHER SURGICAL HISTORY 09/25/2011 PROCEDURE: PFT FULL (60 MINUTES) OTHER SURGICAL HISTORY 07/26/2009 PROCEDURE: CT ECHO TRANSTHORAC R-T 2D W/WO M-MODE REC COMP OTHER SURGICAL HISTORY 07/26/2009 PROCEDURE: OUTSIDE HOLTER MONITOR OTHER SURGICAL HISTORY 06/25/2008 PROCEDURE: PFT FULL (60 MINUTES) APPENDECTOMY PROCEDURE: HISTORICAL APPENDECTOMY HYSTERECTOMY PROCEDURE: HISTORICAL HYSTERECTOMY OTHER SURGICAL HISTORY 01/19/2014 PROCEDURE: HISTORY OTHER; COMMENT: [place] lymph node biopsy Medical History Medical History [...] Date Smoking Tobacco: Former Smokeless Tobacco: Never Tobacco Cessation:Counseling Given: Not Answered Alcohol Use Standard Drinks/Week Comments Yes 0 (1 standard drink = 0.6 oz pur e alcohol) Comments Unknown Sex and Gender Information Value Date Recorded Sex Assigned at Not on file Legal Sex Female 6:24 AM EST Gender Identity Not on file Sexual Orientation Not on file Obstetrics History Last Filed Vital Signs Vital Sign Reading Time Taken Comments Blood Pressure 110/62 01/02/2025 8:40 AM EDT Pulse 78 01/02/2025 8:40 AM EDT Temperature - - Respiratory Rate - - Oxygen Saturation 99% 01/02/2025 8:40 AM EDT Inhaled Oxygen Concentration - - Weight 48.4 kg (106 lb 12.8 oz) 025 12:53 PM EDT Height 152.4 cm (5') 01/02/2025 8:40 AM EDT Body Mass Index 20.86 10/03/2024 12:53 PM EDT Plan of Treatment Upcoming Encounters Date Type Department Care Team (Late st Contact Info) Description 04/04/2025 3:00 PM EDT Ancillary Procedure [facility] [address] [facility] [address] [place] [address] Health Maintenance Due Date Last Done Comments Zoster Vaccines (1 of 2) 08/26/2015 07/01/2015 Cholesterol Screening (Lipid Panel) 05/24/2022 Falls Risk Assessment 05/24/2022 Medicare Annual Wellness Visit 05/24/2022 Osteoporosis Screening (Bone Density Screening) 05/24/2022 Social Influencers of Health Screening 05/24/2022 Depression Screening 06/21/2024 COVID-19 Vaccine (7 - Pfizer risk 2023- season) 2024 04/04/2024, 11/11/2022, 10/09/2021, Additional history exists Influenza Vaccine (#1) 2025 , 03/09/2023, 04/09/2022, Additional history exists Hypertension/CHF/CAD Annual BMP Blood Test 10/23/2025 10/23/2024, 10/21/2024, 08/28/2024 DTaP,Tdap,and Td Vaccines (3 - Td or Tdap) 09/21/2034 09/21/2024, 11/25/2016 Pneumococcal Vaccine: 50+ Years Completed 04/13/2016, 07/30/2012, 11/05/2006 RSV Immunization Adult Patients Completed 05/03/2023 HIB Vaccines Aged Out No longer eligi [...] this topic Medical Devices Implanted Type Area Crystal Grinder Device Identifier Shelf Expiration Date Model / Serial / Lot Bsci-Crm [id number] Implanted: (Quantity not on file) Cardiac Pacemaker [employer] CARD RHYTHM MGMT [id number] / [id number] / Device Clsur Watchman Flx Magda 27mm Bsci-Prnt [id number] Implanted:Qty : 1 on 06/03/2023 by Alexandro Llanes MD Left: Heart [employer] JOSE RAFAEL 03/01/2026 [id number] / / [id number] Description:Implanted in lef t atrial appendage. Procedures Procedure Name Priority Date/Time Associated Diagnosis Comments CARDIAC DEVICE CHECK- REMOTE- MURJ Routine 12/18/2024 7:48 AM EDT COMPLETE BLOOD COUNT Routine 10/26/2024 8:54 AM [...] fibrillation (CMS/HCC V24, CMS/HCC V28) Anemia, unspecified from Last 3 Months Results * Cardiac device check - Remote- MURJ (12/18/2024 7:48 AM EDT) Date Time Interrogation Session [id number] CV DEVICE CHECK Type Interrogation Session Remote Scheduled CV DEVICE CHECK Implantable Pulse Generator Crystal Grinder BSX CV DEVICE CHECK Implantable Pulse Generator Type IPG CV DEVICE CHECK Implantable Pulse Generator Model L110 CV DEVICE CHECK Implantable Pulse Generator Serial Number [id number] CV DEVICE CHECK Implantable Pulse Generator Implant Date [id number] CV DEVICE CHECK Battery Remaining Percentage 100.00 CV DEVICE CHECK Battery Remaining Longevity 102.0 CV DEVICE CHECK Battery Status Beginning of Service CV DEVICE CHECK Bhaskar Statistic RV Percent Paced 100.00 CV DEVICE CHECK Lead Channel Setting Sensing Sensitivity 2.50 CV DEVICE CHECK Lead Channel Impedance Value 600 CV DEVICE CHECK Lead Channel Pacing Threshold Amplitude 0.700 CV DEVICE CHECK Lead Channel Pacing Threshold Pulse Width 0.4 CV DEVICE CHECK Lead Channel RV Pacing Threshold Date 2024-12-04 CV DEVICE CHECK Lead Channel Setting Pacing Amplitude 1.200 CV DEVICE CHECK Lead Channel Setting Pacing [...] 1 CV DEVICE CHECK Date of Service 2024-12-18 CV DEVICE CHECK Anatomical Region Laterality Modality Device Interroga tion 12/06/2024 1:21 AM EDT Impressions 12/18/2024 7:37 AM EDT Normal Remote: No Events * Normal Device Function * Alerts or events: None * Battery: Battery is at 100%, 8.50 yrs * Sensing, impedance and thresholds reviewed * Programmed parameters reviewed * Presenting rhythm reviewed * Heart Rate Histograms reviewed * No significant changes noted Narrative Procedure Note Alexandro Llanes MD - 12/18/2024 IMPRESSION: Normal Remote: No Events * Normal Device Function * Alerts or events: None * Battery: Battery is at 100%, 8.50 yrs * Sensing, impedance and thresholds reviewed * Programmed parameters reviewed * Presenting rhythm reviewed * Heart Rate Histograms reviewed * No significant changes noted Alexandro Llanes MD CV IMPLANTABLE CARDIAC DEVICE PROCEDURES Final Result * (ABNORMAL) Complete blood count (10/26/2024 8:54 AM EDT) Only the most recent of4 resultswithin the time period is included. [facility] WBC 5.5 4.8 - 10.8 K/mcL LAB [...] METHOD 10/26/2024 10:23 AM [facility] Platelets 320 130 - 400 K/mcL LAB HEMETOLOGY METHOD 10/26/2024 10:23 AM EDT [facility] MPV 11.5(H) 7.0 - 11.0 FL LAB HEMETOLOGY METHOD 10/26/2024 10:23 AM EDT [facility] NRBC 0.0 <1.0 % LAB HEMETOLOGY METHOD 10/26/2024 10:23 AM EDT [facility] NRBC Absolute 0.00 <0.10 K/mcL LAB HEMETOLOGY METHOD 10/26/2024 10:23 AM EDT [facility] Blood Venous blood specimen / Unknown Venipuncture / Unknown 10/26/2024 8:54 AM EDT 10/26/2024 10:12 AM EDT Connor Solitario MD LAB BLOOD ORDERABLES Final Result [facility] [address] [place] [address], * Basic metabolic panel (10/23/2024 9:01 AM [...] LAB CHEMISTRY METHOD 10/23/2024 1:52 PM EDT [facility] BUN 11 5 - 25 mg/dL LAB CHEMISTRY METHOD 10/23/2024 1:52 PM EDT [facility] Creatinine 0.71 0.50 - 1.10 mg/dL LAB CHEMISTRY METHOD 10/23/2024 1:52 PM [facility] eGFR 84 >=60 mL/min/1. 73m2 LAB CHEMISTRY METHOD 10/23/2024 1:52 PM T [facility] Comment:Calculation based on the [...] Solitario MD LAB BLOOD ORDERABLES Final Result [facility] [address] [place] [address], * (ABNORMAL) Comprehensive metabolic panel (10/21/2024 8:22 [...] 42 unit/L LAB CHEMISTRY METHOD 10/21/2024 12:06 [facility] ALT (SGPT) 17 10 - [...] 10/21/2024 12:06 PM [facility] Total Bilirubin 0.3 0.0 - 1.4 mg/dL LAB CHEMISTRY METHOD 10/21/2024 12:06 PM EDT [facility] Blood Venous blood specimen / Unknown Venipuncture / Unknown 10/21/2024 8:22 AM EDT 10/21/2024 10:38 AM EDT us Connor Solitario MD LAB BLOOD ORDERABLES Final Result [facility] [address] [place] [address], [place] [phone] from Last 3 Months Insurance MEDICARE [facility] Care Teams Candy Feeder Relationship Specialty Start Date End Date Bridgette Duffy MD [address] [place] [phone] PCP - General 05/13/20
[2025-01-04 13:54] VITALS: BP 114/55; PULSE 70; RESP 14; O2SAT 98
[2025-01-04 15:06] LABS: Troponin-I High Sensitivity 13.6 ng/L (<3.5-17.0)
[2025-01-04 16:14] VITALS: BP 132/73; PULSE 73; RESP 14; O2SAT 97
[2025-01-04] MEDS: oxyCODONE HCl Immed Release 5 MG TABLET PO (16:37)
[2025-01-04 17:51] VITALS: BP 134/63; PULSE 70; RESP 14; O2SAT 96
--- NOTE | 2025-01-04 18:22 | PC.NURSE ---
Plan for PT/CM, diet tray ordered, pharmacy aware of med rec needed
--- NOTE | 2025-01-04 19:43 | PHA.MEDREC ---
Pharmacy Consult ? Medication Reconciliation Pharmacy has completed the medication reconciliation. Spoke to patient to confirm med list. Patient had a list for medications with her. Patient states she is not taking Cipro 250 mg (hasn't started yet), Naproxen 500 mg( hasn't started yet), Tamsulosin 0.4 mg,( hasn't started yet) Tramadol 50 mg (hasn't started yet), and Spiriva. Patient states she last had her medications 01/02/25.
--- NOTE | 2025-01-04 19:49 | PHA.MEDREC ---
Addendum entered by Vaishali Zacarias RPh 01/04/25 21:08: Reviewed by [facility] Original Note: Pharmacy Consult ? Medication Reconciliation Pharmacy has completed the medication reconciliation. Spoke to patient to confirm med list. Patient had a list for medications with her. Patient states she is not taking Cipro 250 mg (hasn't started yet), Naproxen 500 mg( hasn't started yet), Tamsulosin 0.4 mg,( hasn't started yet) Tramadol 50 mg (hasn't started yet), and Spiriva. Patient confirmed she take Gabapentin 100 mg QD-BID not a prescribed Gabapentin 100 mg TID. Patient states she last had her medications 01/02/25.
[2025-01-04 19:55] VITALS: BP 113/63; PULSE 73; TEMP 36.9; O2SAT 96
[2025-01-04 22:52] VITALS: BP 155/66; PULSE 73; TEMP 37.7; O2SAT 97
--- NOTE | 2025-01-04 22:57 | MHC.EDTECH ---
@22:50 patient's pure wick change, blankets from EMS has been removed, new bed pad place. Patient was been boosted in bed, pillow placed under left knee per patient request for comfort. Vitals updated, call purcell placed within arms reach of the patient. Patient is all set at this time.
[2025-01-05] VITALS (11 sets, daily range): BP systolic 101–148; BP diastolic 45–68; PULSE 62–75; RESP 13–18; TEMP 36.2–37.9; O2SAT 96–100
[2025-01-05] MEDS: oxyCODONE HCl Immed Release 5 MG TABLET PO ×3 (01:24→20:24)
[2025-01-05] MEDS: dilTIAZem HCL CD 180 MG CAP.ER.24H 360 MG PO (09:12)
[2025-01-05] MEDS: Aspirin Enteric Coated 81 MG TABLET.DR PO (09:13)
[2025-01-05] MEDS: Fluticasone/Umeclidinium/Vilanterol 200/62.5/25 BLST.W.DEV 1 PUFF INHALE (09:46)
[2025-01-05 11:19] LABS: Appearance Urine Turbid; Glucose Urine UA Negative (Negative); PH 6.0 (5.0-9.0); Specific Gravity - Urine 1.015 (1.005-1.025); UMIC TRIGGER UACC YES
[2025-01-05 11:30] LABS: UACC Culture Trigger YES
--- NOTE | 2025-01-05 12:56 | PC.NURSE ---
Addendum entered by Ashley Hallman RN 01/05/25 13:01: Patient is a 84-year-old female with medical history of pacemaker, Watchman device, asthma, nephrolithiasis, CAD, anemia, incarcerated femoral hernia, HTN, GERD, AFib, not on AC, on daily aspirin, presents to the ED due to fall yesterday. Patient states she had a lithotripsy procedure done yesterday with Dr. Grant, states handled the procedure well and felt fine after procedure. Patient states later on in the evening she had a fall but can not recall mechanism of fall. Patient does not remember falling, but remembers immediately after the fall and hitting her head on sliding glass door. Patient stated afterwards she was having difficulty walking and bearing weight on the left leg due to pain. Woke up this morning and was still experiencing left leg pain and groin pain and was unable to ambulate. x-ray reveals left pubic bone fracture, with CPPD of the knee and hip who recommended NWB. 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 Patient alert and oriented. Lungs clear bilat. Respirations even and non-labored. Abdomen soft, non-tender with positive bowel sounds. Purewick intact. Positive pedal pulses with no edema. Patient with significant difficulty moving in the bed secondary to pain. Original Note: Medical History Presence of Watchman left atrial appendage closure device Osteoarthritis Breast cancer Nephrolithiasis Asthma Aortic atherosclerosis Anxiety Anemia Incarcerated femoral hernia HTN (hypertension) GERD (gastroesophageal reflux disease) Persistent atrial fibrillation
--- NOTE | 2025-01-05 15:06 | MHC.CM.PN ---
PT REPORTS SHE LIVES WITH HER WHO HAS ALZHEIMERS SHE SAYS HER WIFES SON IS CARING FOR HER NOW AND WILL BE ABLE TO WHILE SHE IS IN REHAB SHE SAYS AT BASELINE SHE IS INDEPENDENT AND USES NO DME PCP: HECTOR VALENZUELA DAUGHTER, NGHIA IS HCP PT AWARE STR WAS RECOMMENDED SHE SAYS SHE WAS AT [facility] RECENTLY BUT IS UNSURE IF IT HAS BEEN LESS THAT 30 DAYS SHE UNDERSTANDS IF SHE DOES NOT HAVE A QHS SHE WOULD HAVE TO PP UNLESS ACCEPTED INTO ACUTE REHAB SHE SAYS [facility] WOULD BE HER PREFERRED SNF IF SHE HAS A QHS, SHE DOES NOT WANT TO PP FOR STR.
--- NOTE | 2025-01-05 22:05 | PC.NURSE ---
Assumed care of this patient at 19:00. This patient continues in the ED overflow. Patient is A&Ox4 to self. Pt has CM/SW consults due to left pubic bone and pubic ramus fxs sustained from fall at home. Pt c/o sharp pain in her left leg.?+dp and pt pulses,?+cms. -edema.?+dorsiflexion and plantarflexion. Pt is able to identify which toe was being touched on her left foot with her eyes closed. Pt was medicated for pain per AUG. Ice/heat adjuvant interventions also offered and applied per pt request. Pt is resistive to repositioning due to pain in LLE despite education; pt only allows supine and occasional pillow placed under right buttock for offloading. Ressurance was offered and pt was educated on risks of decreased/modified repositioning. A foam was placed to the pt's coccyx for blanchable redness to thin skin at this area. Pt remains bedfast/NWB. PT is consulted and STR search in process via CM/SW. Pt denies chest pain or sob. Breathing remains even and unlabored without distress.?VSS.?LSCTA on RA. Denies n/v. Tolerated meds whole without issue. Voiding via purewick due to fx. Call purcell is within reach and this pt was educated on use. Bed alarm on and safety measures in place. Pt's daughter/HCP Doreen was updated via phone per request.?
[2025-01-06] VITALS (8 sets, daily range): BP systolic 86–138; BP diastolic 40–55; PULSE 60–75; RESP 16–18; TEMP 36.1–36.4; O2SAT 95–98
[2025-01-06] MEDS: oxyCODONE HCl Immed Release 5 MG TABLET PO ×2 (06:31→13:07)
[2025-01-06] MEDS: Fluticasone/Umeclidinium/Vilanterol 200/62.5/25 BLST.W.DEV 1 PUFF INHALE (07:59)
--- NOTE | 2025-01-06 09:19 | PC.NURSE ---
Assumed care of pt approx 0700, pt resting comfortably in bed. A/O x 4, denies pain at this time. Pt noted to have decreased BP in 80's/90's systollically. ISSAC Zamudio notified and ordered to hold cardizem and losartan this morning. Purewick in place, pt took pills whole with water.
[2025-01-06] MEDS: Aspirin Enteric Coated 81 MG TABLET.DR PO (09:34)
--- NOTE | 2025-01-06 13:29 | MHC.CM.ED ---
Patient remains in ER. [facility] is able to offer a bed. Tiffanie QUINONES booked for 430pm. Patient, daughter Dre Logan RN and Lizz DAVENPORT aware. Continue to monitor for d/c needs.
== END 2025-01-06 17:20 | disposition skilled nursing facility (03) ==
PROVIDERS: Emergency Provider Emergency Medicine
DX: S72.002A Fracture of unspecified part of neck of left femur, initial encounter for closed fracture (principal); S32.502A Unspecified fracture of left pubis, initial encounter for closed fracture; S80.12XA Contusion of left lower leg, initial encounter; N39.0 Urinary tract infection, site not specified; N20.0 Calculus of kidney; R10.2 Pelvic and perineal pain; R51.9 Headache, unspecified; M25.572 Pain in left ankle and joints of left foot; M25.562 Pain in left knee; R94.31 Abnormal electrocardiogram [ECG] [EKG]; R26.81 Unsteadiness on feet; M85.862 Other specified disorders of bone density and structure, left lower leg; X58.XXXA Exposure to other specified factors, initial encounter; Y93.9 Activity, unspecified; Y92.9 Unspecified place or not applicable; Y99.8 Other external cause status; Z87.891 Personal history of nicotine dependence; Z79.899 Other long term (current) drug therapy
CPT/HCPCS: 36415; 70450; 72192; 73502; 73551; 73560; 73590; 73600; 80053; 81001; 82550; 83735; 84484; 85025; 85610; 87086; 87088; 87186; 93005; 94640; 97162; 99285

== ENCOUNTER → 2025-01-04 11:27 | Outpatient (BNV) | payer MEDICARE, SELFPAY | PROVIDERS: Emergency Provider Emergency Medicine; Visit Provider Internal Medicine | DX: R94.31 Abnormal electrocardiogram [ECG] [EKG] (principal); Z95.0 Presence of cardiac pacemaker | CPT/HCPCS: 93010 ==

== ENCOUNTER → 2025-01-04 11:27 | Outpatient (BNV) | payer MEDICARE, SELFPAY | PROVIDERS: Emergency Provider Emergency Medicine; Visit Provider Radiology Diagnostic Radiology | DX: I67.82 Cerebral ischemia (principal); M85.872 Other specified disorders of bone density and structure, left ankle and foot | CPT/HCPCS: 70450; 73590; 73600 ==

== ENCOUNTER 2025-02-28 10:04 | Outpatient (REF) | payer MEDICARE, SELFPAY ==
--- OUTSIDE RECORDS SUMMARY | 2025-03-01 12:12 | XMS_ITS | Encounter Summary ---
Author Organization [facility] Address [address] [place] [address] Phone Care Team Providers Care Hookman Name Role Phone Pcp, Unknown Primary Care Provider Unavailabl e Reason for Referral * Occupational Therapy (Within 1 month) - Closed Specialty Diagnoses / Procedures Referred By Jt t Referred To Contact Occupational Therapy Diagnoses Encounter for rehabilitation Bobo Elam MD [address] [place] [address] [place] [address] Phone: tel: fax: [facility] [address] [place] [address] Phone: tel: Referral ID Status Reason Start Date Expiration Date Visits Re quested Visits Authorized [id number] Closed 08/19/2023 08/18/2024 99 99 Encounter Details Date Type Department Care Team (Latest Contact Info) Description 08/19/2023 Transcribe Orders [facility] [address] [place] [address] Bobo Elam MD [address] [place] [address] [place] [address] Encounter for rehabilitation (Primary Dx) Social History [...] Diagnoses Orde r Schedule Ambulatory referral to [facility] Occupational Therapy Outpatient Referral Routine Encounter for rehabilitation Ordered: 08/19/2023 documented as of this encounter Visit Diagnoses Diagnosis Encounter for rehabilitation- Primary documented in this encounter Care Teams Hookman Relationship Specialty Start Date End Date Pcp, Unknown PCP - General 02/24/23 documented as of this encounter Additional Source Comments The information contained in this document represents components of the legal health record. It is not the complete legal health record.[facility]
--- OUTSIDE RECORDS SUMMARY | 2025-03-01 12:12 | XMS_ITS | Encounter Summary ---
Author Organization [facility] Address [address] [place] [address] Care Team Providers Care Sluice Tender Name Role Phone Bridgette Duffy MD Primary Care Provider [phone] Encounter Details Date Type Department Care Team (Late st Contact Info) Description 01/07/2025 Lab Requisition [facility] - [facility] Lab [address] [facility] [place] [address] Rylee Mecnhaca NP [address] [place] [phone] Encounter for other general examination Social History [...] Description 04/04/2025 3:00 PM EDT Ancillary Procedure [facility] - [address] [facility] [address] [place] [address] documented as of this encounter [...] CBC auto differential (01/07/2025 5:49 AM EDT) [facility] Signature WBC 7.9 4.8 - 10.8 K/mcL LAB HEMETOLOGY METHOD 01/07/2025 9:05 AM [facility] RBC 3.10(L) 3.80 - 4.80 M/mcL LAB HEMETOLOGY METHOD 01/07/2025 9:05 AM [facility] Hemoglobin 8.3(L) 11.5 - 16.0 g/dL LAB HEMETOLOGY METHOD 01/07/2025 9:05 AM [facility] Hematocrit 27.3(L) 35.0 - 47.0 % LAB HEMETOLOGY METHOD 01/07/2025 9:05 AM [facility] MCV 88.6 79.0 - 98.0 FL LAB HEMETOLOGY METHOD 01/07/2025 9:05 AM [facility] MCH 26.9(L) 27.0 - 32.0 pcg LAB HEMETOLOGY METHOD 01/07/2025 9:05 AM [facility] MCHC 30.4(L) 32.0 - 37.0 g/dL LAB HEMETOLOGY METHOD 01/07/2025 9:05 AM [facility] RDW 16.6(H) 11.0 - 15.0 % LAB HEMETOLOGY METHOD 01/07/2025 9:05 AM [facility] Platelets 197 130 - 400 K/mcL LAB HEMETOLOGY METHOD 01/07/2025 9:05 AM [facility] MPV 11.5(H) 7.0 - 11.0 FL LAB HEMETOLOGY METHOD 01/07/2025 9:05 AM [facility] NRBC 0.0 <1.0 % LAB HEMETOLOGY METHOD 01/07/2025 9:05 AM [facility] NRBC Absolute 0.00 <0.10 K/mcL LAB HEMETOLOGY METHOD 01/07/2025 9:05 AM [facility] Neutrophils Relative 79.1 % LAB HEMETOLOGY METHOD 01/07/2025 9:05 AM [facility] Lymphocytes Relative 9.0 % LAB HEMETOLOGY METHOD 01/07/2025 9:05 AM [facility] Monocytes Relative 8.5 % LAB HEMETOLOGY METHOD 01/07/2025 9:05 AM [facility] Eosinophils Relative 2.5 % LAB HEMETOLOGY METHOD 01/07/2025 9:05 AM [facility] Basophils Relative 0.4 % LAB HEMETOLOGY METHOD 01/07/2025 9:05 AM [facility] Immature Granulocytes Relative 0.5 % LAB HEMETOLOGY METHOD 01/07/2025 9:05 AM [facility] Neutrophils Absolute 6.25 1.50 - 7.00 K/mcL LAB HEMETOLOGY METHOD 01/07/2025 9:05 AM [facility] Lymphocytes Absolute 0.71(L) 1.00 - 5.00 K/mcL LAB HEMETOLOGY METHOD 01/07/2025 9:05 AM [facility] Monocytes Absolute 0.67 0.20 - 1.00 K/mcL LAB HEMETOLOGY METHOD 01/07/2025 9:05 AM [facility] Eosinophils Absolute 0.20 0.00 - 0.50 [...] 5:49 AM EDT 01/07/2025 8:38 AM EDT [facility] LAB BLOOD ORDERABLES Final Resul t Performing Organization Address [facility] Co de Phone Number [facility] [address] [place] [address], [place] [phone] * Magnesium (01/07/2025 5:49 AM EDT) Pathologist [facility] Magnesium 2.1 1.9 - 2.6 mg/dL LAB CHEMISTRY METHOD 01/07/2025 9:28 AM EDT [facility] Blood Venous blood specimen / Unknown Venipuncture / Unknown 01/07/2025 5:49 AM EDT 01/07/2025 8:38 AM EDT [facility] LAB BLOOD ORDERABLES Final Resul t Performing Organization Address City/[facility]/ZIP Co de Phone Number [facility] [address] [place] [address], [place] [phone] * (ABNORMAL) Comprehensive metabolic panel (01/07/2025 5:49 AM EDT) Sodium 139 133 - 145 mmol/L LAB CHEMISTRY METHOD 01/07/2025 9:29 AM EDT [facility] Potassium 4.3 3.5 - 5.5 mmol/L LAB CHEMISTRY METHOD 01/07/2025 9:29 AM EDT [facility] Chloride 105 96 - 110 mmol/L LAB CHEMISTRY METHOD 01/07/2025 9:29 AM [facility] CO2 30 21 - 32 mmol/L LAB CHEMISTRY METHOD 01/07/2025 9:29 AM [facility] Anion Gap 4 3 - 11 LAB CHEMISTRY METHOD 01/07/2025 9:29 AM [facility] Glucose 91 70 - 100 mg/dL LAB CHEMISTRY METHOD 01/07/2025 9:29 AM [facility] BUN 22 5 - 25 mg/dL LAB CHEMISTRY METHOD 01/07/2025 9:29 AM [facility] Creatinine 0.99 0.50 - 1.10 mg/dL LAB CHEMISTRY METHOD 01/07/2025 9:29 AM [facility] eGFR 57(L) >=60 mL/min/1. 73m2 LAB CHEMISTRY METHOD 01/07/2025 9:29 AM [facility] Comment:Calculation based on the Chronic Kidney Disease Epidemiology Collaboration (CKD-EPI) equation refit without adjustment for race. BUN/Creatinine Ratio 22.2 LAB CHEMISTRY METHOD 01/07/2025 9:29 AM [facility] Calcium 9.0 8.5 - 10.5 mg/dL LAB CHEMISTRY METHOD 01/07/2025 9:29 AM [facility] AST (SGOT) 7(L) 10 - 42 unit/L LAB CHEMISTRY METHOD 01/07/2025 9:29 AM [facility] ALT (SGPT) 16 10 - 60 unit/L LAB CHEMISTRY METHOD 01/07/2025 9:29 AM [facility] Alkaline Phosphatase 65 42 - 121 unit/L LAB CHEMISTRY METHOD 01/07/2025 9:29 AM [facility] Total Protein 5.8(L) 6.0 - 8.0 g/dL LAB CHEMISTRY METHOD 01/07/2025 9:29 AM EDT [facility] Albumin 2.8(L) 3.2 - 5.0 g/dL LAB CHEMISTRY METHOD 01/07/2025 9:29 AM EDT [facility] Total Bilirubin 0.3 0.0 - 1.4 mg/dL LAB CHEMISTRY METHOD 01/07/2025 9:29 AM EDT [facility] Blood Venous blood specimen / Unknown Venipuncture / Unknown 01/07/2025 5:49 AM EDT 01/07/2025 8:38 AM EDT Rylee Menchaca NP LAB BLOOD ORDERABLES Final Resul t [facility] [address] [place] [address], documented in this encounter Visit Diagnoses Diagnosis Encounter for other general examination documented in this encounter Care Teams Sluice Tender Relationship Specialty Start Date End Date Bridgette Duffy [facility] [place] [phone] PCP - General 05/13/20 documented as of this encounter
--- OUTSIDE RECORDS SUMMARY | 2025-03-01 12:12 | XMS_ITS | Clinical Summary ---
Author Organization [address] [place] [address] [place] [phone] Phone Care Team Providers Care Produce Department Manager Name Role Phone Bridgette Duffy MD Primary Care Provider [phone] Allergies Active Allergy Reactions Criticality Noted Date [...] she agreed to have this done at [facility]. She will agree to continue anticoagulation and we can reevaluate whether that is necessary to continue long-term based on her [id number] score and any evidence of recurrent arrhythmia. She understands that he potential risks of venous access complications, cardiac perforation and tamponade, catheter related thrombus resulting in VT or stroke. He had Benign essential hypertension 07/31/2020 Overview (07/05/2024): Benign essential hypertension under excellent control. Last Assessment & Plan: Well rate controlled on current medications. Continue low-sodium diet. Supraventricular premature beats 07/31/2020 Overview (07/05/2024): Premature beats Supraventricular premature beats Encounters Date Type Department Care Team Description 01/18/2025 Lab Requisition [facility] - Main Lab [address] [facility] [place] [address] Shahbaz Resendiz PA Encounter for other general examination 01/15/2025 Lab Requisition [facility] - Main Lab [address] [place] [phone] Sandra Osman PA Encounter for other general examination 01/13/2025 Lab Requisition [facility] - Main Lab [address] [place] [phone] Sandra Osman PA Encounter for other general examination 01/07/2025 Lab Requisition [facility] - Main Lab [address] [place] [phone] Rylee Menchaca NP Encounter for other general examination 01/02/2025 8:40 AM EDT Office Visit [facility] Cardiology [facility] [address] [place] [phone] Isaura Shelby NP Longstanding persistent atrial fibrillation (CMS/HCC V24, CMS/HCC V28) (Primary Dx) 12/29/2024 Telephone [facility] Cardiology [facility] - [facility] [address] [facility] [address] [place] [address] Bridgette Duffy MD 12/18/2024 7:50 AM EDT Ancillary Procedure [facility] Cardiology [facility] [address] [place] [address] from Last 3 Months Immunizations Name Administration Dates Next Due Pfizer SARS-CoV-2 COVID-19, mRNA, LNP-S, preservative free 04/24/2021,08/16/2020,07/26/2020 Surgical History Surgery Date Site/Laterality Comments OTHER SURGICAL HISTORY 10/14/2015 PROCEDURE: VT ENDOSCOPY UPPER SMALL INTESTINE CATARACT EXTRACTION PROCEDURE: HISTORICAL CATARACT REMOVAL; COMMENT: 12/19/14, 10/31/14 OTHER SURGICAL HISTORY 01/19/2014 PROCEDURE: HISTORY OTHER BREAST LUMPECTOMY 11/14/2013 PROCEDURE: HISTORICAL BREAST LUMPECTOMY OTHER SURGICAL HISTORY 09/25/2011 PROCEDURE: PFT FULL (60 MINUTES) OTHER SURGICAL HISTORY 07/26/2009 PROCEDURE: VT ECHO TRANSTHORAC R-T 2D W/WO M-MODE REC COMP OTHER SURGICAL HISTORY 07/26/2009 PROCEDURE: OUTSIDE HOLTER MONITOR OTHER SURGICAL HISTORY 06/25/2008 PROCEDURE: PFT FULL (60 MINUTES) APPENDECTOMY PROCEDURE: HISTORICAL APPENDECTOMY HYSTERECTOMY PROCEDURE: HISTORICAL HYSTERECTOMY OTHER SURGICAL HISTORY 01/19/2014 PROCEDURE: HISTORY OTHER; COMMENT: Sheldon lymph node biopsy Medical History Medical History [...] Description 04/04/2025 3:00 PM EDT Ancillary Procedure [facility] - [facility] [address] [facility] [address] [place] [address] Health Maintenance Due Date Last Done Comments [...] this topic Medical Devices Implanted Type Area Home Restoration Service Cleaner Device Identifier Shelf Expiration Date Model / Serial / Lot Bsci-Crm [id number] Implanted: (Quantity not on file) Cardiac Pacemaker [employer] CARD RHYTHM MGMT [id number] / [id number] / Device Clsur Watchman Flx Magda 27mm Bsci-Prnt [id number] Implanted:Qty : 1 on 06/03/2023 by Alexandro Llanes MD Left: Heart Interactivo JOSE RAFEAL 03/01/2026 [id number] / / [id number] Description:Implanted in lef t atrial appendage. Procedures [...] of3 resultswithin the time period is included. [facility] Signature WBC 6.7 4.8 - 10.8 K/mcL LAB HEMETOLOGY METHOD 01/18/2025 9:31 AM [facility] RBC 3.00(L) 3.80 - 4.80 M/mcL LAB HEMETOLOGY METHOD 01/18/2025 9:31 AM [facility] Hemoglobin 8.1(L) 11.5 - 16.0 g/dL LAB HEMETOLOGY METHOD 01/18/2025 9:31 AM [facility] Hematocrit 26.3(L) 35.0 - 47.0 % LAB HEMETOLOGY METHOD 01/18/2025 9:31 AM [facility] MCV 88.6 79.0 - 98.0 FL LAB HEMETOLOGY METHOD 01/18/2025 9:31 AM [facility] MCH 27.3 27.0 - 32.0 pcg LAB HEMETOLOGY METHOD 01/18/2025 9:31 AM [facility] MCHC 30.8(L) 32.0 - 37.0 g/dL LAB HEMETOLOGY METHOD 01/18/2025 9:31 AM [facility] RDW 16.9(H) 11.0 - 15.0 % LAB HEMETOLOGY METHOD 01/18/2025 9:31 AM [facility] Platelets 231 130 - 400 K/mcL LAB HEMETOLOGY METHOD 01/18/2025 9:31 AM [facility] MPV 11.3(H) 7.0 - 11.0 FL LAB HEMETOLOGY METHOD 01/18/2025 9:31 AM [facility] NRBC 0.0 <1.0 % LAB HEMETOLOGY METHOD 01/18/2025 9:31 AM [facility] NRBC Absolute 0.00 <0.10 K/mcL LAB HEMETOLOGY METHOD 01/18/2025 9:31 AM [facility] Blood Venous blood specimen / Unknown Venipuncture / Unknown 01/18/2025 6:18 AM EDT 01/18/2025 8:41 AM EDT Shahbaz DAVENPORT LAB BLOOD ORDERABLES Final R esult [facility] [address] [place] [address], * Basic metabolic panel (01/18/2025 6:18 AM EDT) Sodium 142 133 - 145 mmol/L LAB CHEMISTRY METHOD 01/18/2025 9:45 AM [facility] Potassium 4.9 3.5 - 5.5 mmol/L LAB CHEMISTRY METHOD 01/18/2025 9:45 AM [facility] Chloride 108 96 - 110 mmol/L LAB CHEMISTRY METHOD 01/18/2025 9:45 AM [facility] CO2 30 21 - 32 mmol/L LAB CHEMISTRY METHOD 01/18/2025 9:45 AM [facility] Anion Gap 4 3 - 11 LAB CHEMISTRY METHOD 01/18/2025 9:45 AM [facility] Glucose 83 70 - 100 mg/dL LAB CHEMISTRY METHOD 01/18/2025 9:45 AM [facility] BUN 23 5 - 25 mg/dL LAB CHEMISTRY METHOD 01/18/2025 9:45 AM [facility] Creatinine 0.86 0.50 - 1.10 mg/dL LAB CHEMISTRY METHOD 01/18/2025 9:45 AM [facility] eGFR 67 >=60 mL/min/1. 73m2 LAB CHEMISTRY METHOD 01/18/2025 9:45 AM EDT [facility] Comment:Calculation based on the Chronic Kidney Disease Epidemiology Collaboration (CKD-EPI) equation refit without adjustment for race. BUN/Creatinine Ratio 26.7 LAB CHEMISTRY METHOD 01/18/2025 9:45 AM EDT [facility] Calcium 9.3 8.5 - 10.5 mg/dL LAB CHEMISTRY METHOD 01/18/2025 9:45 AM EDT [facility] Blood Venous blood specimen / Unknown Venipuncture / Unknown 01/18/2025 6:18 AM EDT 01/18/2025 8:41 AM EDT us Shahbaz DAVENPORT LAB BLOOD ORDERABLES Final R esult [facility] [address] [place] [address], * (ABNORMAL) CBC auto differential (01/07/2025 5:49 AM EDT) WBC 7.9 4.8 - 10.8 K/mcL LAB HEMETOLOGY METHOD 01/07/2025 9:05 AM [facility] RBC 3.10(L) 3.80 - 4.80 M/mcL LAB HEMETOLOGY METHOD 01/07/2025 9:05 AM [facility] Hemoglobin 8.3(L) 11.5 - 16.0 g/dL LAB HEMETOLOGY METHOD 01/07/2025 9:05 AM [facility] Hematocrit 27.3(L) 35.0 - 47.0 % LAB HEMETOLOGY METHOD 01/07/2025 9:05 AM [facility] MCV 88.6 79.0 - 98.0 FL LAB HEMETOLOGY METHOD 01/07/2025 9:05 AM [facility] MCH 26.9(L) 27.0 - 32.0 pcg LAB HEMETOLOGY METHOD 01/07/2025 9:05 AM [facility] MCHC 30.4(L) 32.0 - 37.0 g/dL LAB HEMETOLOGY METHOD 01/07/2025 9:05 AM [facility] RDW 16.6(H) 11.0 - 15.0 % LAB HEMETOLOGY METHOD 01/07/2025 9:05 AM [facility] Platelets 197 130 - 400 K/mcL LAB HEMETOLOGY METHOD 01/07/2025 9:05 AM [facility] MPV 11.5(H) 7.0 - 11.0 FL LAB HEMETOLOGY METHOD 01/07/2025 9:05 AM [facility] NRBC 0.0 <1.0 % LAB HEMETOLOGY METHOD 01/07/2025 9:05 AM [facility] NRBC Absolute 0.00 <0.10 K/mcL LAB HEMETOLOGY METHOD 01/07/2025 9:05 AM [facility] Neutrophils Relative 79.1 % LAB HEMETOLOGY METHOD 01/07/2025 9:05 AM [facility] Lymphocytes Relative 9.0 % LAB HEMETOLOGY METHOD 01/07/2025 9:05 AM [facility] Monocytes Relative 8.5 % LAB HEMETOLOGY METHOD 01/07/2025 9:05 AM [facility] Eosinophils Relative 2.5 % LAB HEMETOLOGY METHOD 01/07/2025 9:05 AM [facility] Basophils Relative 0.4 % LAB HEMETOLOGY METHOD 01/07/2025 9:05 AM [facility] Immature Granulocytes Relative 0.5 % LAB HEMETOLOGY METHOD 01/07/2025 9:05 AM EDT [facility] Neutrophils Absolute 6.25 1.50 - 7.00 K/mcL LAB HEMETOLOGY METHOD 01/07/2025 9:05 AM EDT [facility] Lymphocytes Absolute 0.71(L) 1.00 - 5.00 K/mcL LAB HEMETOLOGY METHOD 01/07/2025 9:05 AM EDT [facility] Monocytes Absolute 0.67 0.20 - 1.00 K/mcL LAB HEMETOLOGY METHOD 01/07/2025 9:05 AM EDT [facility] Eosinophils Absolute 0.20 0.00 - 0.50 K/mcL LAB HEMETOLOGY METHOD 01/07/2025 9:05 AM EDT [facility] Basophils Absolute 0.03 0.00 - 0.20 K/mcL LAB HEMETOLOGY METHOD 01/07/2025 9:05 AM EDT [facility] Immature Granulocytes Absolute 0.04(H) 0.00 - 0.03 K/mcL LAB HEMETOLOGY METHOD 01/07/2025 9:05 AM EDT [facility] Blood Venous blood specimen / Unknown Venipuncture / Unknown 01/07/2025 5:49 AM EDT 01/07/2025 8:38 AM EDT us Rylee Menchaca ROADWAY TECHNICIAN LAB BLOOD ORDERABLES Final Resul t [facility] [address] [place] [address], * Magnesium (01/07/2025 5:49 AM EDT) Magnesium 2.1 1.9 - 2.6 mg/dL LAB CHEMISTRY METHOD 01/07/2025 9:28 AM EDT [facility] Blood Venous blood specimen / Unknown Venipuncture / Unknown 01/07/2025 5:49 AM EDT 01/07/2025 8:38 AM EDT us Rylee Menchaca ROADWAY TECHNICIAN LAB BLOOD ORDERABLES Final Resul t [facility] [address] [place] [address], * (ABNORMAL) Comprehensive metabolic panel (01/07/2025 5:49 AM EDT) Sodium 139 133 - 145 mmol/L LAB CHEMISTRY METHOD 01/07/2025 9:29 AM [facility] Potassium 4.3 3.5 - 5.5 mmol/L LAB CHEMISTRY METHOD 01/07/2025 9:29 AM [facility] Chloride 105 96 - 110 mmol/L LAB CHEMISTRY METHOD 01/07/2025 9:29 AM [facility] CO2 30 21 - 32 mmol/L LAB CHEMISTRY METHOD 01/07/2025 9:29 AM [facility] Anion Gap 4 3 - 11 LAB CHEMISTRY METHOD 01/07/2025 9:29 AM [facility] Glucose 91 70 - 100 mg/dL LAB CHEMISTRY METHOD 01/07/2025 9:29 AM [facility] BUN 22 5 - 25 mg/dL LAB CHEMISTRY METHOD 01/07/2025 9:29 AM [facility] Creatinine 0.99 0.50 - 1.10 mg/dL LAB CHEMISTRY METHOD 01/07/2025 9:29 AM [facility] eGFR 57(L) >=60 mL/min/1. 73m2 LAB CHEMISTRY METHOD 01/07/2025 9:29 AM [facility] Comment:Calculation based on the Chronic Kidney Disease Epidemiology Collaboration (CKD-EPI) equation refit without adjustment for race. BUN/Creatinine Ratio 22.2 LAB CHEMISTRY METHOD 01/07/2025 9:29 AM [facility] Calcium 9.0 8.5 - 10.5 mg/dL LAB CHEMISTRY METHOD 01/07/2025 9:29 AM [facility] AST (SGOT) 7(L) 10 - 42 unit/L LAB CHEMISTRY METHOD 01/07/2025 9:29 AM [facility] ALT (SGPT) 16 10 - 60 unit/L LAB CHEMISTRY METHOD 01/07/2025 9:29 AM [facility] Alkaline Phosphatase 65 42 - 121 unit/L LAB CHEMISTRY METHOD 01/07/2025 9:29 AM [facility] Total Protein 5.8(L) 6.0 - 8.0 g/dL LAB CHEMISTRY METHOD 01/07/2025 9:29 AM [facility] Albumin 2.8(L) 3.2 - 5.0 g/dL LAB CHEMISTRY METHOD 01/07/2025 9:29 AM [facility] Total Bilirubin 0.3 0.0 - 1.4 mg/dL LAB CHEMISTRY METHOD 01/07/2025 9:29 AM [facility] Blood Venous blood specimen / Unknown Venipuncture / Unknown 01/07/2025 5:49 AM EDT 01/07/2025 8:38 AM EDT Rylee Menchaca NP LAB BLOOD ORDERABLES Final Resul t [facility] [address] [place] [address], * Cardiac device check - Remote- MURJ (12/18/2024 7:48 AM EDT) Date Time Interrogation Session [id number] CV DEVICE CHECK Type Interrogation Session Remote Scheduled CV DEVICE CHECK Implantable Pulse Generator Home Restoration Service Cleaner BSX CV DEVICE CHECK Implantable Pulse Generator Type IPG CV DEVICE CHECK Implantable Pulse Generator Model L110 CV DEVICE CHECK Implantable Pulse Generator Serial Number [id number] CV DEVICE CHECK Implantable Pulse Generator Implant [...] Result from Last 3 Months Insurance MEDICARE [facility] Care Teams Produce Department Manager Relationship Specialty Start Date End Date Bridgette Duffy MD [address] [place] [phone] PCP - General 05/13/20
--- OUTSIDE RECORDS SUMMARY | 2025-03-01 12:12 | XMS_ITS | Encounter Summary ---
Author Organization [facility] Address [address] [place] [address] Care Team Providers Care Electrical Power Engineer Name Role Phone Bridgette Duffy MD Primary Care Provider [phone] Encounter Details Date Type Department Care Team (Late Contact Info) Description 01/13/2025 Lab Requisition [facility] - Main Lab [address] [facility] [place] [address] Sandra Osman PA [address] [place] [phone] Encounter for other general examination Social History [...] Description 04/04/2025 3:00 PM EDT Ancillary Procedure [facility] Associates - [address] [facility] [address] [place] [phone] documented as of this encounter Procedures Procedure Name Priority Date/Time Associated Diagnosis Comments COMPLETE BLOOD COUNT Routine 01/13/2025 6:18 AM EDT Encounter for other general examination documented in this encounter Results * (ABNORMAL) Complete blood count (01/13/2025 6:18 AM EDT) [facility] WBC 5.2 4.8 - 10.8 K/mcL LAB HEMETOLOGY METHOD 01/13/2025 10:44 AM [facility] RBC 2.90(L) 3.80 - 4.80 M/mcL LAB HEMETOLOGY METHOD 01/13/2025 10:44 AM [facility] Hemoglobin 7.8(L) 11.5 - 16.0 g/dL LAB HEMETOLOGY METHOD 01/13/2025 10:44 AM [facility] Hematocrit 26.3(L) 35.0 - 47.0 % LAB HEMETOLOGY METHOD 01/13/2025 10:44 AM [facility] MCV 90.4 79.0 - 98.0 FL LAB HEMETOLOGY METHOD 01/13/2025 10:44 AM [facility] MCH 26.8(L) 27.0 - 32.0 pcg LAB HEMETOLOGY METHOD 01/13/2025 10:44 AM [facility] MCHC 29.7(L) 32.0 - 37.0 g/dL LAB HEMETOLOGY METHOD 01/13/2025 10:44 AM [facility] RDW 16.5(H) 11.0 - 15.0 % LAB HEMETOLOGY METHOD 01/13/2025 10:44 AM [facility] Platelets 199 130 - 400 K/mcL LAB HEMETOLOGY METHOD 01/13/2025 10:44 AM [facility] MPV 11.4(H) 7.0 - 11.0 FL LAB HEMETOLOGY METHOD 01/13/2025 10:44 AM [facility] NRBC 0.0 <1.0 % LAB HEMETOLOGY METHOD 01/13/2025 10:44 AM [facility] NRBC Absolute 0.00 <0.10 K/mcL LAB HEMETOLOGY METHOD 01/13/2025 10:44 AM EDT [facility] Blood Venous blood specimen / Unknown Venipuncture / Unknown 01/13/2025 6:18 AM EDT 01/13/2025 9:54 AM EDT us Sandra DAVENPORT LAB BLOOD ORDERABLES Final Resul t [facility] [address] [place] [address], documented in this encounter Visit Diagnoses Diagnosis Encounter for other general examination documented in this encounter Care Teams Electrical Power Engineer Relationship Specialty Start Date End Date Bridgette Duffy MD [address] [place] [phone] PCP - General 05/13/20 documented as of this encounter
--- OUTSIDE RECORDS SUMMARY | 2025-03-01 12:12 | XMS_ITS | Encounter Summary ---
Author Organization [facility] Address [address] [place] [address] Care Team Providers Care Shank Skinner Name Role Phone Bridgette Duffy MD Primary Care Provider [phone] Encounter Details Date Type Department Care Team (Late st Contact Info) Description 10/21/2024 Lab Requisition [facility] - Main Lab 299 [facility] [place] [address] Connor Solitario MD [address] [place] [phone] Essential (primary) hypertension; Unspecified atrial fibrillation (CMS/HCC [...] 3:00 PM EDT Ancillary Procedure [facility] Associates - [address] [facility] [address] [place] [phone] documented as of this encounter Procedures Procedure Name Priority Date/Time Associated Diagnosis Comments COMPLETE BLOOD COUNT Routine 10/21/2024 8:22 AM EDT Essential (primary) hypertension Unspecified atrial fibrillation (CMS/HCC V24, CMS/HCC V28) Anemia, unspecified COMPREHENSIVE METABOLIC PANEL Routine 10/21/2024 8:22 AM EDT Essential (primary) hypertension Unspecified atrial fibrillation (CMS/HCC V24, [facility]/HCC V28) Anemia, unspecified documented in this [...] METHOD 10/21/2024 12:06 PM [facility] Blood Venous blood specimen / Unknown Venipuncture / Unknown 10/21/2024 8:22 AM EDT 10/21/2024 10:38 AM EDT us Connor Solitario MD LAB BLOOD ORDERABLES Final Result [facility] [address] [place] [address], * (ABNORMAL) Complete blood count (10/21/2024 8:22 AM EDT) WBC 8.6 4.8 - 10.8 K/mcL LAB HEMETOLOGY METHOD 10/21/2024 11:44 AM EDT [facility] RBC 2.70(L) 3.80 - 4.80 M/mcL LAB HEMETOLOGY METHOD 10/21/2024 11:44 AM [facility] Hemoglobin 7.3(L) 11.5 - 16.0 g/dL LAB HEMETOLOGY METHOD 10/21/2024 11:44 AM [facility] Hematocrit 24.3(L) 35.0 - 47.0 % LAB HEMETOLOGY METHOD 10/21/2024 11:44 AM [facility] MCV 89.0 79.0 - 98.0 FL LAB HEMETOLOGY METHOD 10/21/2024 11:44 AM [facility] MCH 26.7(L) 27.0 - 32.0 pcg LAB HEMETOLOGY METHOD 10/21/2024 11:44 AM [facility] MCHC 30.0(L) 32.0 - 37.0 g/dL LAB HEMETOLOGY METHOD 10/21/2024 11:44 AM [facility] RDW 18.6(H) 11.0 - 15.0 % LAB HEMETOLOGY METHOD 10/21/2024 11:44 AM [facility] Platelets 240 130 - 400 K/mcL LAB HEMETOLOGY METHOD 10/21/2024 11:44 AM [facility] MPV 11.8(H) 7.0 - 11.0 FL LAB HEMETOLOGY METHOD 10/21/2024 11:44 AM [facility] NRBC 0.0 <1.0 % LAB HEMETOLOGY METHOD 10/21/2024 11:44 AM [facility] NRBC Absolute 0.00 <0.10 K/mcL LAB HEMETOLOGY METHOD 10/21/2024 11:44 AM [facility] Blood Venous blood specimen / Unknown Venipuncture / Unknown 10/21/2024 8:22 AM EDT 10/21/2024 10:38 AM EDT us Connor Solitario MD LAB BLOOD ORDERABLES Final Result [facility] LAB [address] [place] [address], documented in this encounter Visit Diagnoses Diagnosis Essential (primary) hypertension Unspecified essential hypertension Unspecified atrial fibrillation (CMS/HCC V24, CMS/HCC V28) Anemia, unspecified documented in this encounter Care Teams Shank Skinner Relationship Specialty Start Date End Date [facility]idget[facility] [place] [phone] PCP - General 05/13/20 documented as of this encounter
--- OUTSIDE RECORDS SUMMARY | 2025-03-01 12:12 | XMS_ITS | Encounter Summary ---
Author Organization [facility] Address [address] [place] [address] Care Team Providers Care Winding Lathe Operator Name Role Phone Bridgette Duffy MD Primary Care Provider [phone] Encounter Details Date Type Department Care Team (Late Contact Info) Description 01/18/2025 Lab Requisition [facility] - Main Lab 299 [facility] [place] [address] Shahbaz Resendiz PA [address] [facility] [address] [place] [address] Encounter for other general examination Social History [...] Description 04/04/2025 3:00 PM EDT Ancillary Procedure [facility] Associates - [address] [facility] [address] [place] [phone] documented as of this encounter Procedures Procedure Name Priority Date/Time Associated Diagnosis Comments COMPLETE BLOOD COUNT Routine 01/18/2025 6:18 AM EDT Encounter for other general examination BASIC METABOLIC PANEL Routine 01/18/2025 6:18 AM EDT Encounter for other general examination documented in this encounter Results * (ABNORMAL) Complete blood count (01/18/2025 6:18 AM EDT) [facility] Signature WBC 6.7 4.8 - 10.8 [...] DAVENPORT LAB BLOOD ORDERABLES Final R esult [facility] [address] [place] [address], * Basic metabolic panel (01/18/2025 6:18 AM [...] LAB CHEMISTRY METHOD 01/18/2025 9:45 AM EDT [facility] Comment:Calculation based on the Chronic Kidney Disease Epidemiology Collaboration (CKD-EPI) equation refit without adjustment for race. BUN/Creatinine Ratio 26.7 LAB CHEMISTRY METHOD 01/18/2025 9:45 AM EDT [facility] Calcium 9.3 8.5 - 10.5 mg/dL LAB CHEMISTRY METHOD 01/18/2025 9:45 AM EDT [facility] Blood Venous blood specimen / Unknown Venipuncture / Unknown 01/18/2025 6:18 AM EDT 01/18/2025 8:41 AM EDT us Shahbaz DAVENPORT LAB BLOOD ORDERABLES Final R esult [facility] [address] [place] [address], documented in this encounter Visit Diagnoses Diagnosis Encounter for other general examination documented in this encounter Care Teams Winding Lathe Operator Relationship Specialty Start Date End Date Bridgette Duffy MD [address] [place] [phone] PCP - General 05/13/20 documented as of this encounter
--- OUTSIDE RECORDS SUMMARY | 2025-03-01 12:12 | XMS_ITS | Clinical Summary ---
Author Organization [facility] Address [address] [address] Phone Care Team Providers Care Bottle Washer Name Role Phone Pcp, Unknown Primary Care [...] file Insurance MEDICARE PART A & B [employer] MEDEX SUPPLEMENT MEDICARE PART A & B [employer]aring MEDEX SUPPLEMENT MEDICARE PART A & B Invoice[employer]aring MEDEX SUPPLEMENT MEDICARE PART A & B [employer]aring MEDEX SUPPLEMENT MEDICARE PART A & B [employer]aring MEDEX SUPPLEMENT MEDICARE PART A & B [employer] MEDEX SUPPLEMENT Care Teams Bottle Washer Relationship Specialty Start Date End Date Pcp, Unknown PCP - General 02/24/23 Additional Source Comments The information contained in this document represents components of the legal health record. It is not the complete legal health record.[facility]
--- OUTSIDE RECORDS SUMMARY | 2025-03-01 12:12 | XMS_ITS | Encounter Summary ---
Author Organization [facility] Address [address] [place] [address] Care Team Providers Care Intern Architect Name Role Phone Bridgette Duffy MD Primary Care Provider [phone] Encounter Details Date Type Department Care Team (Late Contact Info) Description 10/24/2024 Lab Requisition [facility] - Main Lab 299 [facility] [place] [address] Connor Solitario MD [address] [place] [address] Anemia, unspecified Social History Tobacco Use Types [...] Description 04/04/2025 3:00 PM EDT Ancillary Procedure [facility] - [address] [facility] [address] [place] [phone] documented as of this encounter Procedures Procedure Name Priority Date/Time Associated Diagnosis Comments COMPLETE BLOOD COUNT Routine 10/25/2024 4:48 AM EDT Anemia, unspecified documented in this encounter Results * (ABNORMAL) Complete blood count (10/25/2024 4:48 AM EDT) [facility] WBC 5.9 4.8 - 10.8 K/mcL LAB HEMETOLOGY METHOD 10/25/2024 8:54 AM [facility] RBC 2.60(L) 3.80 - 4.80 M/mcL LAB HEMETOLOGY METHOD [facility] Hemoglobin 6.9(L) 11.5 - 16.0 g/dL LAB HEMETOLOGY METHOD 10/25/2024 8:54 AM [facility] LAB Hematocrit 23.2(L) 35.0 - 47.0 % LAB HEMETOLOGY METHOD 10/25/2024 8:54 AM [facility] LAB MCV 90.3 79.0 - 98.0 FL LAB HEMETOLOGY METHOD 10/25/2024 8:54 AM [facility] LAB MCH 26.8(L) 27.0 - 32.0 pcg LAB HEMETOLOGY METHOD 10/25/2024 8:54 AM [facility] LAB MCHC 29.7(L) 32.0 - 37.0 g/dL LAB HEMETOLOGY METHOD 10/25/2024 8:54 AM [facility] LAB RDW 18.4(H) 11.0 - 15.0 % LAB HEMETOLOGY METHOD 10/25/2024 8:54 AM [facility] LAB Platelets 272 130 - 400 K/mcL LAB HEMETOLOGY METHOD 10/25/2024 8:54 AM [facility] LAB MPV 11.5(H) 7.0 - 11.0 FL LAB HEMETOLOGY METHOD 10/25/2024 8:54 AM [facility] LAB NRBC 0.0 <1.0 % LAB HEMETOLOGY METHOD 10/25/2024 8:54 AM [facility] LAB NRBC Absolute 0.00 <0.10 K/[facility] LAB HEMETOLOGY METHOD 10/25/2024 8:54 AM EDT [facility] LAB Blood Venous blood specimen / Unknown Venipuncture / Unknown 10/25/2024 4:48 AM EDT 10/25/2024 8:28 AM EDT us Connor Solitario MD LAB BLOOD ORDERABLES Final Result [facility] LAB [address] [place] [address], documented in this encounter Visit Diagnoses Diagnosis Anemia, unspecified documented in this encounter Care Teams Intern Architect Relationship Specialty Start Date End Date Bridgette Duffy MD [address] [place] [phone] PCP - General 05/13/20 documented as of this encounter
--- OUTSIDE RECORDS SUMMARY | 2025-03-01 12:12 | XMS_ITS | Encounter Summary ---
Author Organization [facility] Address [address] [place] [address] Care Team Providers Care Coal Cager Name Role Phone Bridgette Duffy MD Primary Care Provider [phone] Encounter Details Date Type Department Care Team (Late Contact Info) Description 10/26/2024 Lab Requisition [facility] - Main Lab 299 [facility] [place] [address] Connor Solitario MD [address] [place] [address] Anemia, unspecified Social History Tobacco Use Types [...] Procedure [facility] [address] 300 [facility] [address] [place] [address] documented as of this encounter Procedures Procedure Name Priority Date/Time Associated Diagnosis Comments COMPLETE BLOOD COUNT Routine 10/26/2024 8:54 AM EDT Anemia, unspecified documented in this encounter Results * (ABNORMAL) Complete blood count (10/26/2024 8:54 AM EDT) [facility] WBC 5.5 4.8 - 10.8 K/mcL LAB HEMETOLOGY METHOD 10/26/2024 10:23 AM [facility] LAB RBC 3.00(L) 3.80 - 4.80 M/mcL LAB HEMETOLOGY METHOD 10/26/2024 10:23 AM [facility] LAB Hemoglobin 8.1(L) 11.5 - 16.0 g/dL LAB HEMETOLOGY METHOD 10/26/2024 10:23 AM [facility] LAB Hematocrit 26.8(L) 35.0 - 47.0 % LAB HEMETOLOGY METHOD 10/26/2024 10:23 AM [facility] LAB MCV 90.8 79.0 - 98.0 FL LAB HEMETOLOGY METHOD 10/26/2024 10:23 AM [facility] LAB MCH 27.5 27.0 - 32.0 pcg LAB HEMETOLOGY METHOD 10/26/2024 10:23 AM [facility] LAB MCHC 30.2(L) 32.0 - 37.0 g/dL LAB HEMETOLOGY METHOD 10/26/2024 10:23 AM [facility] LAB RDW 18.8(H) 11.0 - 15.0 % LAB HEMETOLOGY METHOD 10/26/2024 10:23 AM [facility] LAB Platelets 320 130 - 400 K/mcL LAB HEMETOLOGY METHOD 10/26/2024 10:23 AM [facility] LAB MPV 11.5(H) 7.0 - 11.0 FL LAB HEMETOLOGY METHOD 10/26/2024 10:23 AM [facility] LAB NRBC 0.0 <1.0 % LAB HEMETOLOGY METHOD 10/26/2024 10:23 AM [facility] LAB NRBC Absolute 0.00 <0.10 K/mcL LAB HEMETOLOGY METHOD 10/26/2024 10:23 AM EDT [facility] LAB Blood Venous blood specimen / Unknown Venipuncture / Unknown 10/26/2024 8:54 AM EDT 10/26/2024 10:12 AM EDT us Connor Solitario MD LAB BLOOD ORDERABLES Final Result [facility] LAB [address] [place] [address], documented in this encounter Visit Diagnoses Diagnosis Anemia, unspecified documented in this encounter Care Teams Coal Cager Relationship Specialty Start Date End Date Bridgette Duffy MD [facility] [place] [address] PCP - General 05/13/20 documented as of this encounter
--- OUTSIDE RECORDS SUMMARY | 2025-03-01 12:12 | XMS_ITS | Encounter Summary ---
Author Organization [facility] Address [address] [place] [address] Care Team Providers Care Synthetic Soil Blocks Pulper Name Role Phone Bridgette Duffy MD Primary Care Provider [phone] Encounter Details Date Type Department Care Team (Late Contact Info) Description 10/29/2024 Lab Requisition [facility] - Main Lab 299 [facility] [place] [address] Connor Soiltario MD [address] [place] [address] Essential (primary) hypertension; Anemia, unspecified Social History [...] Description 04/04/2025 3:00 PM EDT Ancillary Procedure [facility] - [facility] [address] 300 [facility] [address] [place] [address] documented as of this encounter Visit Diagnoses Diagnosis Essential (primary) hypertension Unspecified essential hypertension Anemia, unspecified documented in this encounter Care Teams Synthetic Soil Blocks Pulper Relationship Specialty Start Date End Date Bridgette Duffy MD [address] [place] [address] PCP - General 05/13/20 documented as of this encounter
--- OUTSIDE RECORDS SUMMARY | 2025-03-01 12:12 | XMS_ITS | Clinical Summary ---
Author Organization [facility] Address [address] [place] [address] Care Team Providers Care Toe Lining Closer Name Role Phone Unavailable Primary Care Provider [...]
--- OUTSIDE RECORDS SUMMARY | 2025-03-01 12:12 | XMS_ITS | Clinical Summary ---
Author Organization [facility] Address [address] [place] [address] Care Team Providers Care Internal Affairs Commander Name Role Phone Unavailable Primary Care Provider [...] this topic Medical Devices Implanted Type Area Chemical Unit Operator Device Identifier Shelf Expiration Date Model / Serial / Lot Device Clsur Watchman Flx Magda 27mm Bsci-Prnt [id number] - [id number] Implanted:Qty: 1 on 06/03/2023 by Alexandro Llanes MD at [facility] Left: Heart [employer] JOSE RAFAEL 03/01/2026 [id number] / / [id number] Description:Implanted in lef t atrial appendage. Advance Directives For more information, please contact: [phone] Documents on File Type Date Recorded Patient Electronic Tech Expl anation Advance Directive and Living Will [...]
--- OUTSIDE RECORDS SUMMARY | 2025-03-01 12:12 | XMS_ITS | Encounter Summary ---
Author Organization [facility] Address [address] [place] [address] Care Team Providers Care Sales Engagement Manager Name Role Phone Bridgette Duffy MD Primary Care Provider [phone] Encounter Details Date Type Department Care Team (Late Contact Info) Description 01/15/2025 Lab Requisition [facility] - Main Lab 299 [facility] [place] [address] Sandra Osman PA [address] [place] [address] Encounter for other general examination Social History [...] Description 04/04/2025 3:00 PM EDT Ancillary Procedure [facility] Associates - [address] [facility] [address] [place] [address] documented as of this encounter Procedures Procedure Name Priority Date/Time Associated Diagnosis Comments COMPLETE BLOOD COUNT Routine 01/15/2025 6:10 AM EDT Encounter for other general examination documented in this encounter Results * (ABNORMAL) Complete blood count (01/15/2025 6:10 AM EDT) [facility] WBC 6.2 4.8 - 10.8 K/mcL LAB HEMETOLOGY METHOD 01/15/2025 11:43 AM [facility] LAB RBC 2.90(L) 3.80 - 4.80 M/mcL LAB HEMETOLOGY METHOD 01/15/2025 11:43 AM [facility] LAB Hemoglobin 7.9(L) 11.5 - 16.0 g/dL LAB HEMETOLOGY METHOD 01/15/2025 11:43 AM [facility] LAB Hematocrit 26.3(L) 35.0 - 47.0 % LAB HEMETOLOGY METHOD 01/15/2025 11:43 AM [facility] LAB MCV 90.7 79.0 - 98.0 FL LAB HEMETOLOGY METHOD 01/15/2025 11:43 AM [facility] LAB MCH 27.2 27.0 - 32.0 pcg LAB HEMETOLOGY METHOD 01/15/2025 11:43 AM [facility] LAB MCHC 30.0(L) 32.0 - 37.0 g/dL LAB HEMETOLOGY METHOD 01/15/2025 11:43 AM [facility] LAB RDW 16.7(H) 11.0 - 15.0 % LAB HEMETOLOGY METHOD 01/15/2025 11:43 AM [facility] LAB Platelets 206 130 - 400 K/mcL LAB HEMETOLOGY METHOD 01/15/2025 11:43 AM [facility] LAB MPV 11.5(H) 7.0 - 11.0 FL LAB HEMETOLOGY METHOD 01/15/2025 11:43 AM [facility] LAB NRBC 0.0 <1.0 % LAB HEMETOLOGY METHOD 01/15/2025 11:43 AM [facility] LAB NRBC Absolute 0.00 <0.10 K/[facility] LAB HEMETOLOGY METHOD 01/15/2025 11:43 AM EDT [facility] LAB Blood Venous blood specimen / Unknown Venipuncture / Unknown 01/15/2025 6:10 AM EDT 01/15/2025 10:08 AM EDT us Sandra DAVENPORT LAB BLOOD ORDERABLES Final Resul t [facility] LAB [address] [place] [address], documented in this encounter Visit Diagnoses Diagnosis Encounter for other general examination documented in this encounter Care Teams Sales Engagement Manager Relationship Specialty Start Date End Date Bridget[facility] [place] [address] PCP - General 05/13/20 documented as of this encounter
--- OUTSIDE RECORDS SUMMARY | 2025-03-01 12:12 | XMS_ITS | Encounter Summary ---
Author Organization [facility] Address [address] [place] [address] Care Team Providers Care Lift Builder Whole Name Role Phone Bridgette Duffy MD Primary Care Provider [phone] [phone] Encounter Details Date Type Department Care Team (Late st Contact Info) Description 10/23/[address] [facility] - Main Lab 299 [facility] [place] [address] Connor Solitario MD [address] [place] [address] Essential (primary) hypertension; Anemia, unspecified; Unspecified atrial [...] Description 04/04/2025 3:00 PM EDT Ancillary Procedure [facility] - [facility] [address] [facility] [address] [place] [phone] documented as of this encounter Procedures Procedure [...] mmol/L LAB CHEMISTRY METHOD 10/23/2024 1:52 PM [facility] Potassium 4.1 3.5 - 5.5 mmol/L LAB CHEMISTRY METHOD 10/23/2024 1:52 PM [facility] Chloride 108 96 - 110 mmol/L LAB CHEMISTRY METHOD 10/23/2024 1:52 PM [facility] CO2 25 21 - 32 mmol/L LAB CHEMISTRY METHOD 10/23/2024 1:52 PM [facility] Anion Gap 6 3 - 11 LAB CHEMISTRY METHOD 10/23/2024 1:52 PM [facility] LAB Glucose 93 70 - 100 mg/dL LAB CHEMISTRY METHOD 10/23/2024 1:52 PM [facility] BUN 11 5 - 25 mg/dL LAB CHEMISTRY METHOD 10/23/2024 1:52 PM [facility] LAB Creatinine 0.71 0.50 - 1.10 mg/dL LAB CHEMISTRY METHOD 10/23/2024 1:52 PM [facility] LAB eGFR 84 >=60 mL/min/1. 73m2 LAB CHEMISTRY METHOD 10/23/2024 1:52 PM [facility] LAB Comment:Calculation based on the Chronic Kidney Disease Epidemiology Collaboration (CKD-EPI) equation refit without adjustment for race. BUN/Creatinine Ratio 15.5 LAB CHEMISTRY METHOD 10/23/2024 1:52 PM [facility] LAB Calcium 9.0 8.5 - 10.5 mg/dL LAB CHEMISTRY METHOD 10/23/2024 1:52 PM EDT [facility] LAB Blood Venous blood specimen / Unknown Venipuncture / Unknown 10/23/2024 9:01 AM EDT 10/23/2024 12:09 PM EDT us Connor Solitario MD LAB BLOOD ORDERABLES Final Result [facility] LAB [address] [place] [address], [place] [phone] * (ABNORMAL) Complete blood count (10/23/2024 9:01 AM EDT) WBC 5.4 4.8 - 10.8 K/mcL LAB HEMETOLOGY METHOD 10/23/2024 1:12 PM EDT [facility] LAB RBC 3.00(L) 3.80 - 4.80 M/mcL LAB HEMETOLOGY METHOD 10/23/2024 1:12 PM EDT [facility] LAB Hemoglobin 8.2(L) 11.5 - 16.0 g/dL LAB HEMETOLOGY METHOD 10/23/2024 1:12 PM EDT [facility] LAB Hematocrit 26.9(L) 35.0 - 47.0 % LAB HEMETOLOGY METHOD 10/23/2024 1:12 PM EDT [facility] LAB MCV 90.0 79.0 - 98.0 FL LAB HEMETOLOGY METHOD 10/23/2024 1:12 PM EDT [facility] LAB MCH 27.4 27.0 - 32.0 pcg LAB HEMETOLOGY METHOD 10/23/2024 1:12 PM [facility] MCHC 30.5(L) 32.0 - 37.0 g/dL LAB HEMETOLOGY METHOD [facility]/23[facility]24 [facility] RDW 18.8(H) 11.0 - 15.0 % LAB HEMETOLOGY METHOD 10/23/2024 1:12 PM EDT [facility] LAB Platelets 305 130 - 400 K/mcL LAB HEMETOLOGY METHOD 10/23/2024 1:12 PM EDT [facility] LAB MPV 11.7(H) 7.0 - 11.0 FL LAB HEMETOLOGY METHOD 10/23/2024 1:12 PM EDT [facility] LAB NRBC 0.0 <1.0 % LAB HEMETOLOGY METHOD 10/23/2024 1:12 PM EDT [facility] LAB NRBC Absolute 0.00 <0.10 K/mcL LAB HEMETOLOGY METHOD 10/23/2024 1:12 PM EDT [facility] LAB Blood Venous blood specimen / Unknown Venipuncture / Unknown 10/23/2024 9:01 AM EDT 10/23/2024 12:09 PM EDT us Connor Solitario MD LAB BLOOD ORDERABLES Final Result [facility] LAB [address] [place] [address], documented in this encounter Visit Diagnoses Diagnosis Essential (primary) hypertension Unspecified essential hypertension Anemia, unspecified Unspecified atrial fibrillation (CMS/HCC V24, CMS/HCC V28) documented in this encounter Care Teams Lift Builder Whole Relationship Specialty Start Date End Date Bridgette Duffy [facility] [place] [phone] PCP - General 05/13/20 documented as of this encounter
== END 2025-02-28 10:05 | disposition home or self-care (01) ==
LOC: HO.HOSX 10:04
PROVIDERS: Visit Provider Physician Assistant
DX: Z13.89 Encounter for screening for other disorder (principal)

== ENCOUNTER 2025-02-28 13:19 | Outpatient (AMB) | payer MEDICARE, SELFPAY ==
--- NOTE | 2025-02-28 13:28 | MHC.OFFVIS ---
Intake Visit Reasons: FC-Pubic rami fx s/p fall DOI: 01/06/25 Intake Note: Ernestina is an 84 year old female who presents today in a wheel chair as an established patient, new problem visit to evaluate pubic rami fracture s/p fall DOI: 01/06/25. Patient presented to [facility] ER after she sustained a fall, she was instructed no weight bear and follow up with orthopedics. Today patient reports she is doing well, stating not really any pain. She is questioning when will she able to start bearing weight. Allergies amoxicillin (From Augmentin) Allergy (Mild, Verified 02/28/25 13:28) Nausea clavulanic acid (From Augmentin) Allergy (Mild, Verified 02/28/25 13:28) Nausea HPI HPI FC-Pubic rami fx s/p fall DOI: 01/06/25: Details: 84-year-old female presents to the office today for an injury she sustained to her left pubic rami on 01/06/2025 after a fall. She was initially seen in the emergency department where imaging showed the fracture and she was discharged to a short-term rehab and referred to our office for ortho eval. The patient states she was discharged from the emergency department as nonweightbearing and is now home with VNA services and continues to remain nonweightbearing. She denies pain. [facility] Medical History Presence of Watchman left atrial appendage closure device Osteoarthritis Breast cancer Nephrolithiasis Asthma Aortic atherosclerosis Anxiety Anemia Incarcerated femoral hernia HTN (hypertension) GERD (gastroesophageal reflux disease) Persistent atrial fibrillation Surgical History History of radiofrequency ablation (RFA) procedure for cardiac arrhythmia Hx of appendectomy Hx of hysterectomy History of lumpectomy of left breast Hx of bilateral cataract extraction History of esophagogastroduodenoscopy (EGD) History of femoral hernia repair S/P cardiac pacemaker procedure History of surgery on left wrist Social History Household Members: Spouse Housing: Condominium Do you presently have visiting nurse or other home services: No Alcohol intake: former Patient Tobacco Use Status: Former Tobacco user Tobacco use type: Cigarette Advance Directives Date on File: 01/06/25 service: No Current occupational status: retired Current occupation: right hand dominant Review of Systems Const All systems reviewed & are unremarkable except as noted in HPI and below Physical Exam Const General: cooperative and no acute distress Orientation/consciousness: patient oriented x3 Resp Effort & Inspection: normal respiratory effort and able to speak in complete sentences Cardio Peripheral pulses: Peripheral pulses 2+ throughout Neuro General: patient oriented x3 Extrem Other: Left hip is normal to inspection without pain on range of motion and hip flexion. She is neurovascularly intact. Office Procedures AMB Fracture Care Fracture Billing Code: Fracture Billing Code Results Reviewed Results Reviewed: X-rays of the pelvis obtained in the office today and reviewed by me show a stable healing pubic rami fracture. Assessment & Plan Assessment & Plan (1) Fracture of left inferior pubic ramus: Code(s): S32.592A - Other specified fracture of left pubis, initial encounter for closed fracture Category: Medical Plan: The patient can begin weight-bearing as tolerated with a walker. I did put in an order in for her home VNA to work on gait training ADLs and ambulation with a walker. She can increase activities as tolerated and if symptoms arise or there is concerns she can contact our office otherwise she will follow up as needed. Orders: Orders XR pelvis 1-2V Today M25.559 - Pain in unspecified hip PT Evaluation and Treatment Today S32.592A - Other specified fracture of left pubis, initial encounter for closed fracture Coding Level of Care Code Global (05131) Diagnoses Fracture of left inferior pubic ramus S32.592A CPT Codes Fracture Care - Fracture Billing Code: Fracture Billing Code ([id number])
--- OUTSIDE RECORDS SUMMARY | 2025-02-28 16:20 | XMS_ITS | Encounter Summary ---
Author Organization [facility] Address [address] [place] [address] Care Team Providers Care Planer Setter Name Role Phone Bridgette Duffy MD Primary Care Provider [phone] Encounter Details Date Type Department Care Team (Late st Contact Info) Description 01/07/2025 Lab Requisition [facility] Lab [address] [facility] [place] [address] Rylee Menchaca NP [address] [place] [phone] Encounter for other general examination Social History Tobacco Use Types Packs/Day Years [...] Description 04/04/2025 3:00 PM EDT Ancillary Procedure [facility] [address] [facility] [address] [place] [address] documented as of this encounter Procedures Procedure Name Priority Date/Time Associated Diagnosis Comments CBC WITH AUTO DIFFERENTIAL Routine 01/07/2025 5:49 AM EDT Encounter for other general examination CBC AND DIFFERENTIAL Routine 01/07/2025 5:49 AM EDT Encounter for other general examination MAGNESIUM Routine 01/07/2025 5:49 AM EDT Encounter for other general examination COMPREHENSIVE METABOLIC PANEL Routine 01/07/2025 5:49 AM EDT Encounter for other general examination documented in this encounter Results * (ABNORMAL) CBC auto differential (01/07/2025 5:49 AM EDT) [facility] Signature WBC 7.9 4.8 - 10.8 K/mcL LAB HEMETOLOGY METHOD 01/07/2025 9:05 AM [facility] RBC 3.10(L) 3.80 - 4.80 M/mcL LAB HEMETOLOGY METHOD 01/07/2025 9:05 AM [facility] Hemoglobin 8.3(L) 11.5 - 16.0 g/dL LAB HEMETOLOGY METHOD 01/07/2025 9:05 AM [facility] Hematocrit 27.3(L) 35.0 - 47.0 % LAB HEMETOLOGY METHOD 01/07/2025 9:05 AM [facility] MCV 88.6 79.0 - 98.0 FL LAB HEMETOLOGY METHOD 01/07/2025 9:05 AM [facility] MCH 26.9(L) 27.0 - 32.0 pcg LAB HEMETOLOGY METHOD 01/07/2025 9:05 AM [facility] MCHC 30.4(L) 32.0 - 37.0 g/dL LAB HEMETOLOGY METHOD 01/07/2025 9:05 AM [facility] RDW 16.6(H) 11.0 - 15.0 % LAB HEMETOLOGY METHOD 01/07/2025 9:05 AM [facility] Platelets 197 130 - 400 K/mcL LAB HEMETOLOGY METHOD 01/07/2025 9:05 AM [facility] MPV 11.5(H) 7.0 - 11.0 FL LAB HEMETOLOGY METHOD 01/07/2025 9:05 AM [facility] NRBC 0.0 <1.0 % LAB HEMETOLOGY METHOD 01/07/2025 9:05 AM [facility] NRBC Absolute 0.00 <0.10 K/mcL LAB HEMETOLOGY METHOD 01/07/2025 9:05 AM [facility] Neutrophils Relative 79.1 % LAB HEMETOLOGY METHOD 01/07/2025 9:05 AM [facility] Lymphocytes Relative 9.0 % LAB HEMETOLOGY METHOD 01/07/2025 9:05 AM [facility] Monocytes Relative 8.5 % LAB HEMETOLOGY METHOD 01/07/2025 9:05 AM [facility] Eosinophils Relative 2.5 % LAB HEMETOLOGY METHOD 01/07/2025 9:05 AM [facility] Basophils Relative 0.4 % LAB HEMETOLOGY METHOD 01/07/2025 9:05 AM [facility] Immature Granulocytes Relative 0.5 % LAB HEMETOLOGY METHOD 01/07/2025 9:05 AM [facility] Neutrophils Absolute 6.25 1.50 - 7.00 K/mcL LAB HEMETOLOGY METHOD 01/07/2025 9:05 AM [facility] Lymphocytes Absolute 0.71(L) 1.00 - 5.00 K/mcL LAB HEMETOLOGY METHOD 01/07/2025 9:05 AM [facility] Monocytes Absolute 0.67 0.20 - 1.00 K/mcL LAB HEMETOLOGY METHOD 01/07/2025 9:05 AM [facility] Eosinophils Absolute 0.20 0.00 - 0.50 K/mcL LAB HEMETOLOGY METHOD 01/07/2025 9:05 AM EDT [facility] Basophils Absolute 0.03 0.00 - 0.20 K/mcL LAB HEMETOLOGY METHOD 01/07/2025 9:05 AM EDT [facility] Immature Granulocytes Absolute 0.04(H) 0.00 - 0.03 K/mcL LAB HEMETOLOGY METHOD 01/07/2025 9:05 AM EDT [facility] Blood Venous blood specimen / Unknown Venipuncture / Unknown 01/07/2025 5:49 AM EDT 01/07/2025 8:38 AM EDT [facility] LAB BLOOD ORDERABLES Final Resul t Performing Organization Address [facility] Co de Phone Number [facility] [address] [place] [address], [place] [phone] * Magnesium (01/07/2025 5:49 AM EDT) Pathologist [facility] Magnesium 2.1 1.9 - 2.6 mg/dL LAB CHEMISTRY METHOD 01/07/2025 9:28 AM EDT [facility] Blood Venous blood specimen / Unknown Venipuncture / Unknown 01/07/2025 5:49 AM EDT 01/07/2025 8:38 AM EDT [facility] LAB BLOOD ORDERABLES Final Resul t Performing Organization Address City/[facility]/ZIP Co de Phone Number [facility] [address] [place] [address], [place] [phone] * (ABNORMAL) Comprehensive metabolic panel (01/07/2025 5:49 AM EDT) Sodium 139 133 - 145 mmol/L LAB CHEMISTRY METHOD 01/07/2025 9:29 AM EDT [facility] Potassium 4.3 3.5 - 5.5 mmol/L LAB CHEMISTRY METHOD 01/07/2025 9:29 AM EDT [facility] Chloride 105 96 - 110 mmol/L LAB CHEMISTRY METHOD 01/07/2025 9:29 AM [facility] CO2 30 21 - 32 mmol/L LAB CHEMISTRY METHOD 01/07/2025 9:29 AM [facility] Anion Gap 4 3 - 11 LAB CHEMISTRY METHOD 01/07/2025 9:29 AM [facility] Glucose 91 70 - 100 mg/dL LAB CHEMISTRY METHOD 01/07/2025 9:29 AM [facility] BUN 22 5 - 25 mg/dL LAB CHEMISTRY METHOD 01/07/2025 9:29 AM [facility] Creatinine 0.99 0.50 - 1.10 mg/dL LAB CHEMISTRY METHOD 01/07/2025 9:29 AM [facility] eGFR 57(L) >=60 mL/min/1. 73m2 LAB CHEMISTRY METHOD 01/07/2025 9:29 AM [facility] Comment:Calculation based on the Chronic Kidney Disease Epidemiology Collaboration (CKD-EPI) equation refit without adjustment for race. BUN/Creatinine Ratio 22.2 LAB CHEMISTRY METHOD 01/07/2025 9:29 AM [facility] Calcium 9.0 8.5 - 10.5 mg/dL LAB CHEMISTRY METHOD 01/07/2025 9:29 AM [facility] AST (SGOT) 7(L) 10 - 42 unit/L LAB CHEMISTRY METHOD 01/07/2025 9:29 AM [facility] ALT (SGPT) 16 10 - 60 unit/L LAB CHEMISTRY METHOD 01/07/2025 9:29 AM [facility] Alkaline Phosphatase 65 42 - 121 unit/L LAB CHEMISTRY METHOD 01/07/2025 9:29 AM [facility] Total Protein 5.8(L) 6.0 - 8.0 g/dL LAB CHEMISTRY METHOD 01/07/2025 9:29 AM EDT [facility] Albumin 2.8(L) 3.2 - 5.0 g/dL LAB CHEMISTRY METHOD 01/07/2025 9:29 AM EDT [facility] Total Bilirubin 0.3 0.0 - 1.4 mg/dL LAB CHEMISTRY METHOD 01/07/2025 9:29 AM EDT [facility] Blood Venous blood specimen / Unknown Venipuncture / Unknown 01/07/2025 5:49 AM EDT 01/07/2025 8:38 AM EDT Rylee Menchaca NP LAB BLOOD ORDERABLES Final Resul t [facility] [address] [place] [address], documented in this encounter Visit Diagnoses Diagnosis Encounter for other general examination documented in this encounter Care Teams Planer Setter Relationship Specialty Start Date End Date Bridgette Duffy MD [facility] [place] [id number] PCP - General 05/13/20 documented as of this encounter
--- OUTSIDE RECORDS SUMMARY | 2025-02-28 16:20 | XMS_ITS | Clinical Summary ---
Author Organization [facility] Address [address] [place] [address] Care Team Providers Care Chemical Plant Operator Name Role Phone Unavailable Primary Care Provider [...] (DEXA Scan) 2006 COVID-19 Vaccine ( season) 2025 04/24/2021, 08/16/2020, 07/26/2020 Influenza Vaccine (#1) 2025 [...] this topic Medical Devices Implanted Type Area Lumber Checker Device Identifier Shelf Expiration Date Model / Serial / Lot Device Clsur Watchman Flx Magda 27mm Bsci-Prnt [id number] - [id number] Implanted:Qty: 1 on 06/03/2023 by Alexandro Llanes MD at [facility] Left: Heart FlyBridGe JOSE RAFAEL 03/01/2026 [id number] / / [id number] Description:Implanted in lef t atrial appendage. Advance Directives For more information, please contact: [phone] Documents on File Type Date Recorded Patient Supervisor [employer] Expl anation Advance Directive and Living Will [...]
--- OUTSIDE RECORDS SUMMARY | 2025-02-28 16:20 | XMS_ITS | Clinical Summary ---
Author Organization [address] [place] [address] [place] [phone] Phone Care Team Providers Care Business Investor Name Role Phone Bridgette Duffy MD Primary Care Provider [phone] Allergies Active Allergy Reactions Criticality Noted Date [...] she agreed to have this done at [facility]. She will agree to continue anticoagulation and we can reevaluate whether that is necessary to continue long-term based on her [id number] score and any evidence of recurrent arrhythmia. She understands that he potential risks of venous access complications, cardiac perforation and tamponade, catheter related thrombus resulting in [place] or stroke. He had Benign essential hypertension 07/31/2020 Overview (07/05/2024): Benign essential hypertension under excellent control. Last Assessment & Plan: Well rate controlled on current medications. Continue low-sodium diet. Supraventricular premature beats 07/31/2020 Overview (07/05/2024): Premature beats Supraventricular premature beats Encounters Date Type Department Care Team Description 01/18/[address] [facility] - Main Lab [address] [facility] [place] [address] Shahbaz Resendiz PA Encounter for other general examination 01/15/[address] [facility] - Main Lab [address] [place] [phone] Sandra Osman PA Encounter for other general examination 01/13/[address] [facility] - Main Lab [address] [place] [phone] Sandra Osman PA Encounter for other general examination 01/07/[address] [facility] - Main Lab [address] [place] [phone] Rylee Menchaca NP Encounter for other general examination 01/02/2025 8:40 AM EDT Office Visit [facility] Cardiology [facility] [address] [place] [phone] Isaura Shelby NP Longstanding persistent atrial fibrillation (CMS/HCC V24, CMS/HCC V28) (Primary Dx) 12/29/2024 Telephone [facility] Cardiology [facility] - [facility] [address] [place] [address] Bridgette Duffy MD 12/18/2024 7:50 AM EDT Ancillary Procedure [facility] Cardiology [facility] - [address] [place] [address] from Last 3 Months Immunizations Name Administration [...] SURGICAL HISTORY 01/19/2014 PROCEDURE: HISTORY OTHER; COMMENT: [place] lymph node biopsy Medical History Medical History [...] Description 04/04/2025 3:00 PM EDT Ancillary Procedure [facility] - [facility] [address] [facility] [address] [place] [address] Health Maintenance Due Date Last Done Comments Zoster Vaccines (1 of 2) 08/26/2015 07/01/2015 Cholesterol Screening (Lipid Panel) 05/24/2022 Falls Risk Assessment 05/24/2022 Medicare Annual Wellness Visit 05/24/2022 Osteoporosis Screening (Bone Density Screening) 05/24/2022 Social Influencers of Health Screening 05/24/2022 Depression Screening 06/21/2024 COVID-19 Vaccine (7 - Pfizer risk season) 2025 04/04/2024, 11/11/2022, 10/09/2021, Additional history exists Influenza Vaccine (#1) 2025 , 03/09/2023, 04/09/2022, Additional history exists Hypertension/CHF/CAD Annual BMP Blood Test 01/18/2026 01/18/2025, 01/07/2025, 10/23/2024, Additional history exists DTaP,Tdap,and Td Vaccines (3 - Td or [...] this topic Medical Devices Implanted Type Area Ccu Nurse Device Identifier Shelf Expiration Date Model / Serial / Lot Bsci-Crm [id number] Implanted: (Quantity not on file) Cardiac Pacemaker [employer] MGMT [id number] / [id number] / Device Clsur Watchman Flx Magda 27mm Bsci-Prnt [id number] Implanted:Qty : 1 on 06/03/2023 by Alexandro Llanes MD Left: Heart Liquid Accounts JOSE RAFAEL 03/01/2026 [id number] / / [id number] Description:Implanted in lef t atrial appendage. Procedures Procedure Name Priority Date/Time Associated Diagnosis Comments COMPLETE BLOOD COUNT Routine 01/18/2025 6:18 AM EDT Encounter for other general examination BASIC METABOLIC PANEL Routine 01/18/2025 6:18 AM EDT Encounter for other general examination COMPLETE BLOOD COUNT Routine 01/15/2025 6:10 AM EDT Encounter for other general examination COMPLETE BLOOD COUNT Routine 01/13/2025 6:18 AM EDT Encounter for other general examination CBC WITH AUTO DIFFERENTIAL Routine 01/07/2025 5:49 AM EDT Encounter for other general examination MAGNESIUM Routine 01/07/2025 5:49 AM EDT Encounter for other general examination COMPREHENSIVE METABOLIC PANEL Routine 01/07/2025 5:49 AM EDT Encounter for other general examination CBC AND DIFFERENTIAL Routine 01/07/2025 5:49 AM EDT Encounter for other general examination CARDIAC DEVICE CHECK- REMOTE- MURJ Routine 12/18/2024 7:48 AM EDT from Last 3 Months Results * (ABNORMAL) Complete blood count (01/18/2025 6:18 AM EDT) Only the most recent of3 resultswithin the time period is included. [facility] Signature WBC 6.7 4.8 - 10.8 K/mcL LAB HEMETOLOGY METHOD 01/18/2025 9:31 AM [facility] LAB RBC 3.00(L) 3.80 - 4.80 M/mcL LAB HEMETOLOGY METHOD 01/18/2025 9:31 AM [facility] LAB Hemoglobin 8.1(L) 11.5 - 16.0 g/dL LAB HEMETOLOGY METHOD 01/18/2025 9:31 AM [facility] LAB Hematocrit 26.3(L) 35.0 - 47.0 % LAB HEMETOLOGY METHOD 01/18/2025 9:31 AM [facility] LAB MCV 88.6 79.0 - 98.0 FL LAB HEMETOLOGY METHOD 01/18/2025 9:31 AM [facility] LAB MCH 27.3 27.0 - 32.0 pcg LAB HEMETOLOGY METHOD 01/18/2025 9:31 AM [facility] LAB MCHC 30.8(L) 32.0 - 37.0 g/dL LAB HEMETOLOGY METHOD 01/18/2025 9:31 AM [facility] LAB RDW 16.9(H) 11.0 - 15.0 % LAB HEMETOLOGY METHOD 01/18/2025 9:31 AM [facility] LAB Platelets 231 130 - 400 K/mcL LAB HEMETOLOGY METHOD 01/18/2025 9:31 AM [facility] LAB MPV 11.3(H) 7.0 - 11.0 FL LAB HEMETOLOGY METHOD 01/18/2025 9:31 AM [facility] LAB NRBC 0.0 <1.0 % LAB HEMETOLOGY METHOD 01/18/2025 9:31 AM [facility] LAB NRBC Absolute 0.00 <0.10 K/mcL LAB HEMETOLOGY METHOD 01/18/2025 9:31 AM [facility] LAB Blood Venous blood specimen / Unknown Venipuncture / Unknown 01/18/2025 6:18 AM EDT 01/18/2025 8:41 AM EDT Shahbaz DAVENPORT LAB BLOOD ORDERABLES Final R esult [facility] LAB [address] [place] [address], * Basic metabolic panel (01/18/2025 6:18 AM EDT) Sodium 142 133 - 145 mmol/L LAB CHEMISTRY METHOD 01/18/2025 9:45 AM [facility] LAB Potassium 4.9 3.5 - 5.5 mmol/L LAB CHEMISTRY METHOD 01/18/2025 9:45 AM [facility] LAB Chloride 108 96 - 110 mmol/L LAB CHEMISTRY METHOD 01/18/2025 9:45 AM [facility] LAB CO2 30 21 - 32 mmol/L LAB CHEMISTRY METHOD 01/18/2025 9:45 AM [facility] LAB Anion Gap 4 3 - 11 LAB CHEMISTRY METHOD 01/18/2025 9:45 AM [facility] LAB Glucose 83 70 - 100 mg/dL LAB CHEMISTRY METHOD 01/18/2025 9:45 AM [facility] LAB BUN 23 5 - 25 mg/dL LAB CHEMISTRY METHOD 01/18/2025 9:45 AM [facility] LAB Creatinine 0.86 0.50 - 1.10 mg/dL LAB CHEMISTRY METHOD 01/18/2025 9:45 AM [facility] LAB eGFR 67 >=60 mL/min/1. 73m2 LAB CHEMISTRY METHOD 01/18/2025 9:45 AM EDT [facility] Comment:Calculation based on the Chronic Kidney Disease Epidemiology Collaboration (CKD-EPI) equation refit without adjustment for race. BUN/Creatinine Ratio 26.7 LAB CHEMISTRY METHOD 01/18/2025 9:45 AM EDT [facility] Calcium 9.3 8.5 - 10.5 mg/dL LAB CHEMISTRY METHOD 01/18/2025 9:45 AM EDT [facility] Blood Venous blood specimen / Unknown Venipuncture / Unknown 01/18/2025 6:18 AM EDT 01/18/2025 8:41 AM EDT us Shahbaz DAVENPORT LAB BLOOD ORDERABLES Final R esult [facility] LAB [address] [place] [address], * (ABNORMAL) CBC auto differential (01/07/2025 5:49 AM EDT) WBC 7.9 4.8 - 10.8 K/mcL LAB HEMETOLOGY METHOD 01/07/2025 9:05 AM [facility] LAB RBC 3.10(L) 3.80 - 4.80 M/mcL LAB HEMETOLOGY METHOD 01/07/2025 9:05 AM [facility] LAB Hemoglobin 8.3(L) 11.5 - 16.0 g/dL LAB HEMETOLOGY METHOD 01/07/2025 9:05 AM [facility] LAB Hematocrit 27.3(L) 35.0 - 47.0 % LAB HEMETOLOGY METHOD 01/07/2025 9:05 AM [facility] LAB MCV 88.6 79.0 - 98.0 FL LAB HEMETOLOGY METHOD 01/07/2025 9:05 AM [facility] LAB MCH 26.9(L) 27.0 - 32.0 pcg LAB HEMETOLOGY METHOD 01/07/2025 9:05 AM [facility] LAB MCHC 30.4(L) 32.0 - 37.0 g/dL LAB HEMETOLOGY METHOD 01/07/2025 9:05 AM [facility] LAB RDW 16.6(H) 11.0 - 15.0 % LAB HEMETOLOGY METHOD 01/07/2025 9:05 AM [facility] LAB Platelets 197 130 - 400 K/mcL LAB HEMETOLOGY METHOD 01/07/2025 9:05 AM [facility] LAB MPV 11.5(H) 7.0 - 11.0 FL LAB HEMETOLOGY METHOD 01/07/2025 9:05 AM [facility] LAB NRBC 0.0 <1.0 % LAB HEMETOLOGY METHOD 01/07/2025 9:05 AM [facility] LAB NRBC Absolute 0.00 <0.10 K/mcL LAB HEMETOLOGY METHOD 01/07/2025 9:05 AM [facility] Neutrophils Relative 79.1 % LAB HEMETOLOGY METHOD 01/07/2025 9:05 AM [facility] Lymphocytes Relative 9.0 % LAB HEMETOLOGY METHOD 01/07/2025 9:05 AM [facility] Monocytes Relative 8.5 % LAB HEMETOLOGY METHOD 01/07/2025 9:05 AM [facility] Eosinophils Relative 2.5 % LAB HEMETOLOGY METHOD 01/07/2025 9:05 AM [facility] Basophils Relative 0.4 % LAB HEMETOLOGY METHOD 01/07/2025 9:05 AM [facility] Immature Granulocytes Relative 0.5 % LAB HEMETOLOGY METHOD 01/07/2025 9:05 AM EDT [facility] Neutrophils Absolute 6.25 1.50 - 7.00 K/mcL LAB HEMETOLOGY METHOD 01/07/2025 9:05 AM EDT [facility] Lymphocytes Absolute 0.71(L) 1.00 - 5.00 K/mcL LAB HEMETOLOGY METHOD 01/07/2025 9:05 AM EDT [facility] Monocytes Absolute 0.67 0.20 - 1.00 K/mcL LAB HEMETOLOGY METHOD 01/07/2025 9:05 AM EDT [facility] Eosinophils Absolute 0.20 0.00 - 0.50 K/mcL LAB HEMETOLOGY METHOD 01/07/2025 9:05 AM EDT [facility] Basophils Absolute 0.03 0.00 - 0.20 K/mcL LAB HEMETOLOGY METHOD 01/07/2025 9:05 AM EDT [facility] Immature Granulocytes Absolute 0.04(H) 0.00 - 0.03 K/mcL LAB HEMETOLOGY METHOD 01/07/2025 9:05 AM EDT [facility] Blood Venous blood specimen / Unknown Venipuncture / Unknown 01/07/2025 5:49 AM EDT 01/07/2025 8:38 AM EDT us Rylee Menchaca ANALYTICAL LABORATORY TECHNICIAN LAB BLOOD ORDERABLES Final Resul t [facility] [address] [place] [address], * Magnesium (01/07/2025 5:49 AM EDT) Magnesium 2.1 1.9 - 2.6 mg/dL LAB CHEMISTRY METHOD 01/07/2025 9:28 AM EDT [facility] Blood Venous blood specimen / Unknown Venipuncture / Unknown 01/07/2025 5:49 AM EDT 01/07/2025 8:38 AM EDT us Rylee Menchaca ANALYTICAL LABORATORY TECHNICIAN LAB BLOOD ORDERABLES Final Resul t [facility] [address] [place] [address], * (ABNORMAL) Comprehensive metabolic panel (01/07/2025 5:49 AM EDT) Sodium 139 133 - 145 mmol/L LAB CHEMISTRY METHOD 01/07/2025 9:29 AM [facility] LAB Potassium 4.3 3.5 - 5.5 mmol/L LAB CHEMISTRY METHOD 01/07/2025 9:29 AM [facility] LAB Chloride 105 96 - 110 mmol/L LAB CHEMISTRY METHOD 01/07/2025 9:29 AM [facility] LAB CO2 30 21 - 32 mmol/L LAB CHEMISTRY METHOD 01/07/2025 9:29 AM [facility] Anion Gap 4 3 - 11 LAB CHEMISTRY METHOD 01/07/2025 9:29 AM [facility] LAB Glucose 91 70 - 100 mg/dL LAB CHEMISTRY METHOD 01/07/2025 9:29 AM [facility] BUN 22 5 - 25 mg/dL LAB CHEMISTRY METHOD 01/07/2025 9:29 AM [facility] LAB Creatinine 0.99 0.50 - 1.10 mg/dL LAB CHEMISTRY METHOD 01/07/2025 9:29 AM [facility] LAB eGFR 57(L) >=60 mL/min/1. 73m2 LAB CHEMISTRY METHOD 01/07/2025 9:29 AM [facility] LAB Comment:Calculation based on the Chronic Kidney Disease Epidemiology Collaboration (CKD-EPI) equation refit without adjustment for race. BUN/Creatinine Ratio 22.2 LAB CHEMISTRY METHOD 01/07/2025 9:29 AM [facility] Calcium 9.0 8.5 - 10.5 mg/dL LAB CHEMISTRY METHOD 01/07/2025 9:29 AM [facility] AST (SGOT) 7(L) 10 - 42 unit/L LAB CHEMISTRY METHOD 01/07/2025 9:29 AM [facility] ALT (SGPT) 16 10 - 60 unit/L LAB CHEMISTRY METHOD 01/07/2025 9:29 AM [facility] Alkaline Phosphatase 65 42 - 121 unit/L LAB CHEMISTRY METHOD 01/07/2025 9:29 AM [facility] Total Protein 5.8(L) 6.0 - 8.0 g/dL LAB CHEMISTRY METHOD 01/07/2025 9:29 AM [facility] Albumin 2.8(L) 3.2 - 5.0 g/dL LAB CHEMISTRY METHOD 01/07/2025 9:29 AM [facility] Total Bilirubin 0.3 0.0 - 1.4 mg/dL LAB CHEMISTRY METHOD 01/07/2025 9:29 AM [facility] LAB Blood Venous blood specimen / Unknown Venipuncture / Unknown 01/07/2025 5:49 AM EDT 01/07/2025 8:38 AM EDT Rylee Menchaca NP LAB BLOOD ORDERABLES Final Resul t [facility] [address] [place] [address], * Cardiac device check - Remote- MURJ (12/18/2024 7:48 AM EDT) Date Time Interrogation Session [id number] CV DEVICE CHECK Type Interrogation Session Remote Scheduled CV DEVICE CHECK Implantable Pulse Generator Ccu Nurse BSX CV DEVICE CHECK Implantable Pulse Generator Type IPG CV DEVICE CHECK Implantable Pulse Generator Model L110 CV DEVICE CHECK Implantable Pulse Generator Serial Number [id number] CV DEVICE CHECK Implantable Pulse Generator Implant [...] Result from Last 3 Months Insurance MEDICARE [facility] Care Teams Business Investor Relationship Specialty Start Date End Date Bridgette Duffy MD [address] [place] [phone] PCP - General 05/13/20
--- OUTSIDE RECORDS SUMMARY | 2025-02-28 16:20 | XMS_ITS | Encounter Summary ---
Author Organization [facility] Address [address] [place] [address] Care Team Providers Care Hand I Cutter Name Role Phone Bridgette Duffy MD Primary Care Provider [phone] Encounter Details Date Type Department Care Team (Late Contact Info) Description 01/13/2025 Lab Requisition [facility] - Main Lab 299 [facility] [place] [address] Sandra Osman PA [address] [place] [address] Encounter for other general examination Social History [...] Encounters Date Type Department Care Team (Late Contact Info) Description 04/04/2025 3:00 PM EDT Ancillary Procedure [facility] - [address] [facility] [address] [place] [phone] documented as of this encounter Procedures Procedure Name Priority Date/Time Associated Diagnosis Comments COMPLETE BLOOD COUNT Routine 01/13/2025 6:18 AM EDT Encounter for other general examination documented in this encounter Results * (ABNORMAL) Complete blood count (01/13/2025 6:18 AM EDT) [facility] WBC 5.2 4.8 - 10.8 K/mcL LAB HEMETOLOGY METHOD 01/13/2025 10:44 AM [facility] LAB RBC 2.90(L) 3.80 - 4.80 M/mcL LAB HEMETOLOGY METHOD 01/13/2025 10:44 AM [facility] LAB Hemoglobin 7.8(L) 11.5 - 16.0 g/dL LAB HEMETOLOGY METHOD 01/13/2025 10:44 AM [facility] LAB Hematocrit 26.3(L) 35.0 - 47.0 % LAB HEMETOLOGY METHOD 01/13/2025 10:44 AM [facility] LAB MCV 90.4 79.0 - 98.0 FL LAB HEMETOLOGY METHOD 01/13/2025 10:44 AM [facility] LAB MCH 26.8(L) 27.0 - 32.0 pcg LAB HEMETOLOGY METHOD 01/13/2025 10:44 AM [facility] LAB MCHC 29.7(L) 32.0 - 37.0 g/dL LAB HEMETOLOGY METHOD 01/13/2025 10:44 AM [facility] LAB RDW 16.5(H) 11.0 - 15.0 % LAB HEMETOLOGY METHOD 01/13/2025 10:44 AM [facility] LAB Platelets 199 130 - 400 K/mcL LAB HEMETOLOGY METHOD 01/13/2025 10:44 AM [facility] LAB MPV 11.4(H) 7.0 - 11.0 FL LAB HEMETOLOGY METHOD 01/13/2025 10:44 AM [facility] NRBC 0.0 <1.0 % LAB HEMETOLOGY METHOD 01/13/2025 10:44 AM [facility] NRBC Absolute 0.00 <0.10 K/mcL LAB HEMETOLOGY METHOD 01/13/2025 10:44 AM EDT [facility] LAB Blood Venous blood specimen / Unknown Venipuncture / Unknown 01/13/2025 6:18 AM EDT 01/13/2025 9:54 AM EDT us Sandra DAVENPORT LAB BLOOD ORDERABLES Final Resul t [facility] LAB [address] [place] [address], documented in this encounter Visit Diagnoses Diagnosis Encounter for other general examination documented in this encounter Care Teams Hand I Cutter Relationship Specialty Start Date End Date Bridgette Duffy MD [address] [place] [phone] PCP - General 05/13/20 documented as of this encounter
--- OUTSIDE RECORDS SUMMARY | 2025-02-28 16:20 | XMS_ITS | Encounter Summary ---
Author Organization [facility] Address [address] [place] [address] Care Team Providers Care Knotter Name Role Phone Bridgette Duffy MD Primary Care Provider [phone] Encounter Details Date Type Department Care Team (Late Contact Info) Description 01/15/2025 Lab Requisition [facility] - Main Lab 299 [facility] [place] [address] Sandra Osman PA [address] [place] [phone] Encounter for other general examination Social History [...] Description 04/04/2025 3:00 PM EDT Ancillary Procedure [facility] - [address] [facility] [address] [place] [phone] documented as of this encounter Procedures Procedure Name Priority Date/Time Associated Diagnosis Comments COMPLETE BLOOD COUNT Routine 01/15/2025 6:10 AM EDT Encounter for other general examination documented in this encounter Results * (ABNORMAL) Complete blood count (01/15/2025 6:10 AM EDT) [facility] WBC 6.2 4.8 - 10.8 K/mcL LAB HEMETOLOGY METHOD 01/15/2025 11:43 AM [facility] LAB RBC 2.90(L) 3.80 - 4.80 M/mcL LAB HEMETOLOGY METHOD 01/15/2025 11:43 AM [facility] LAB Hemoglobin 7.9(L) 11.5 - 16.0 g/dL LAB HEMETOLOGY METHOD 01/15/2025 11:43 AM [facility] LAB Hematocrit 26.3(L) 35.0 - 47.0 % LAB HEMETOLOGY METHOD 01/15/2025 11:43 AM [facility] LAB MCV 90.7 79.0 - 98.0 FL LAB HEMETOLOGY METHOD 01/15/2025 11:43 AM [facility] LAB MCH 27.2 27.0 - 32.0 pcg LAB HEMETOLOGY METHOD 01/15/2025 11:43 AM [facility] LAB MCHC 30.0(L) 32.0 - 37.0 g/dL LAB HEMETOLOGY METHOD 01/15/2025 11:43 AM [facility] LAB RDW 16.7(H) 11.0 - 15.0 % LAB HEMETOLOGY METHOD 01/15/2025 11:43 AM [facility] LAB Platelets 206 130 - 400 K/mcL LAB HEMETOLOGY METHOD 01/15/2025 11:43 AM [facility] LAB MPV 11.5(H) 7.0 - 11.0 FL LAB HEMETOLOGY METHOD 01/15/2025 11:43 AM [facility] LAB NRBC 0.0 <1.0 % LAB HEMETOLOGY METHOD 01/15/2025 11:43 AM [facility] LAB NRBC Absolute 0.00 <0.10 K/[facility] LAB HEMETOLOGY METHOD 01/15/2025 11:43 AM EDT [facility] Blood Venous blood specimen / Unknown Venipuncture / Unknown 01/15/2025 6:10 AM EDT 01/15/2025 10:08 AM EDT us Sandra DAVENPORT LAB BLOOD ORDERABLES Final Resul t [facility] [address] [place] [address], documented in this encounter Visit Diagnoses Diagnosis Encounter for other general examination documented in this encounter Care Teams Knotter Relationship Specialty Start Date End Date [facility]idget[facility] Duffy [facility] [place] [phone] PCP - General 05/13/20 documented as of this encounter
--- OUTSIDE RECORDS SUMMARY | 2025-02-28 16:20 | XMS_ITS | Encounter Summary ---
Author Organization [facility] Address [address] [place] [address] Care Team Providers Care Corporate Recycling Manager Name Role Phone Bridgette Duffy MD Primary Care Provider [phone] Encounter Details Date Type Department Care Team (Late st Contact Info) Description 10/21/2024 Lab Requisition [facility] - Main Lab 299 [facility] [place] [address] Connor Solitario MD [address] [place] [address] Essential (primary) hypertension; Unspecified atrial fibrillation (CMS/HCC V24, CMS/HCC V28); Anemia, unspecified Social History Tobacco Use Types Packs/Day Years [...] Description 04/04/2025 3:00 PM EDT Ancillary Procedure [facility] - [address] [facility] [address] [place] [phone] documented as of this encounter Procedures Procedure Name Priority Date/Time Associated Diagnosis Comments COMPLETE BLOOD COUNT Routine 10/21/2024 8:22 AM EDT Essential (primary) hypertension Unspecified atrial fibrillation (CMS/HCC V24, CMS/HCC V28) Anemia, unspecified COMPREHENSIVE METABOLIC PANEL Routine 10/21/2024 8:22 AM EDT Essential (primary) hypertension Unspecified atrial fibrillation (CMS/HCC V24, [facility]/HCC V28) Anemia, unspecified documented in this encounter Results * (ABNORMAL) Comprehensive metabolic panel (10/21/2024 8:22 AM EDT) Sodium 139 133 - 145 mmol/L LAB CHEMISTRY METHOD 10/21/2024 12:06 PM [facility] Potassium 4.3 3.5 - 5.5 mmol/L LAB CHEMISTRY METHOD 10/21/2024 12:06 PM [facility] Chloride 107 96 - 110 mmol/L LAB CHEMISTRY METHOD 10/21/2024 12:06 PM [facility] CO2 28 21 - 32 mmol/L LAB CHEMISTRY METHOD 10/21/2024 12:06 PM [facility] Anion Gap 4 3 - 11 LAB CHEMISTRY METHOD 10/21/2024 12:06 PM [facility] Glucose 105(H) 70 - 100 mg/dL LAB CHEMISTRY METHOD 10/21/2024 12:06 PM [facility] BUN 17 5 - 25 mg/dL LAB CHEMISTRY METHOD 10/21/2024 12:06 PM [facility] Creatinine 0.83 0.50 - 1.10 mg/dL LAB CHEMISTRY METHOD 10/21/2024 12:06 PM [facility] eGFR 70 >=60 mL/min/1. 73m2 LAB CHEMISTRY METHOD 10/21/2024 12:06 PM [facility] Comment:Calculation based on the Chronic Kidney Disease Epidemiology Collaboration (CKD-EPI) equation refit without adjustment for race. BUN/Creatinine Ratio 20.5 LAB CHEMISTRY METHOD 10/21/2024 12:06 PM [facility] Calcium 9.0 8.5 - 10.5 mg/dL LAB CHEMISTRY METHOD 10/21/2024 12:06 PM [facility] AST (SGOT) 14 10 - 42 unit/L LAB CHEMISTRY METHOD 10/21/2024 12:06 PM [facility] ALT (SGPT) 17 10 - 60 unit/L LAB CHEMISTRY METHOD 10/21/2024 12:06 PM [facility] Alkaline Phosphatase 64 42 - 121 unit/L LAB CHEMISTRY METHOD 10/21/2024 12:06 PM [facility] Total Protein 5.6(L) 6.0 - 8.0 g/dL LAB CHEMISTRY METHOD 10/21/2024 12:06 PM [facility] Albumin 2.8(L) 3.2 - 5.0 g/dL LAB CHEMISTRY METHOD 10/21/2024 12:06 PM [facility] Total Bilirubin 0.3 0.0 - 1.4 mg/dL LAB CHEMISTRY METHOD 10/21/2024 12:06 PM [facility] Blood Venous blood specimen / Unknown Venipuncture / Unknown 10/21/2024 8:22 AM EDT 10/21/2024 10:38 AM EDT us Connor Solitario MD LAB BLOOD ORDERABLES Final Result [facility] [address] [place] [address], * (ABNORMAL) Complete blood count (10/21/2024 8:22 AM EDT) WBC 8.6 4.8 - 10.8 K/mcL LAB HEMETOLOGY METHOD 10/21/2024 11:44 AM EDT [facility] RBC 2.70(L) 3.80 - 4.80 M/mcL LAB HEMETOLOGY METHOD 10/21/2024 11:44 AM [facility] Hemoglobin 7.3(L) 11.5 - 16.0 g/dL LAB HEMETOLOGY METHOD 10/21/2024 11:44 AM [facility] Hematocrit 24.3(L) 35.0 - 47.0 % LAB HEMETOLOGY METHOD 10/21/2024 11:44 AM [facility] MCV 89.0 79.0 - 98.0 FL LAB HEMETOLOGY METHOD 10/21/2024 11:44 AM [facility] MCH 26.7(L) 27.0 - 32.0 pcg LAB HEMETOLOGY METHOD 10/21/2024 11:44 AM [facility] MCHC 30.0(L) 32.0 - 37.0 g/dL LAB HEMETOLOGY METHOD 10/21/2024 11:44 AM [facility] RDW 18.6(H) 11.0 - 15.0 % LAB HEMETOLOGY METHOD 10/21/2024 11:44 AM [facility] Platelets 240 130 - 400 K/mcL LAB HEMETOLOGY METHOD 10/21/2024 11:44 AM [facility] MPV 11.8(H) 7.0 - 11.0 FL LAB HEMETOLOGY METHOD 10/21/2024 11:44 AM [facility] NRBC 0.0 <1.0 % LAB HEMETOLOGY METHOD 10/21/2024 11:44 AM [facility] NRBC Absolute 0.00 <0.10 K/mcL LAB HEMETOLOGY METHOD 10/21/2024 11:44 AM [facility] Blood Venous blood specimen / Unknown Venipuncture / Unknown 10/21/2024 8:22 AM EDT 10/21/2024 10:38 AM EDT us Connor Solitario MD LAB BLOOD ORDERABLES Final Result [facility] [address] [place] [address], documented in this encounter Visit Diagnoses Diagnosis Essential (primary) hypertension Unspecified essential hypertension Unspecified atrial fibrillation (CMS/HCC V24, CMS/HCC V28) Anemia, unspecified documented in this encounter Care Teams Corporate Recycling Manager Relationship Specialty Start Date End Date Bridgette Duffy [facility] [place] [phone] PCP - General 05/13/20 documented as of this encounter
--- OUTSIDE RECORDS SUMMARY | 2025-02-28 16:20 | XMS_ITS | Encounter Summary ---
Author Organization [facility] Address [address] [place] [address] Care Team Providers Care Balancer Scale Name Role Phone Bridgette Duffy MD Primary Care Provider [phone] Encounter Details Date Type Department Care Team (Late Contact Info) Description 01/18/2025 Lab Requisition [facility] - Main Lab 299 [facility] [place] [address] Shahbaz Resendiz PA [address] [facility] 1 [place] [address] Encounter for other general examination Social History [...] Description 04/04/2025 3:00 PM EDT Ancillary Procedure [facility] - [address] [facility] [address] [place] [phone] documented as of this encounter Procedures Procedure Name Priority Date/Time Associated Diagnosis Comments COMPLETE BLOOD COUNT Routine 01/18/2025 6:18 AM EDT Encounter for other general examination BASIC METABOLIC PANEL Routine 01/18/2025 6:18 AM EDT Encounter for other general examination documented in this encounter Results * (ABNORMAL) Complete blood count (01/18/2025 6:18 AM EDT) [facility] Signature WBC 6.7 4.8 - 10.8 K/mcL LAB HEMETOLOGY METHOD 01/18/2025 9:31 AM [facility] RBC 3.00(L) 3.80 - 4.80 M/mcL LAB HEMETOLOGY METHOD 01/18/2025 9:31 AM [facility] Hemoglobin 8.1(L) 11.5 - 16.0 g/dL LAB HEMETOLOGY METHOD 01/18/2025 9:31 AM [facility] Hematocrit 26.3(L) 35.0 - 47.0 % LAB HEMETOLOGY METHOD 01/18/2025 9:31 AM [facility] MCV 88.6 79.0 - 98.0 FL LAB HEMETOLOGY METHOD 01/18/2025 9:31 AM [facility] MCH 27.3 27.0 - 32.0 pcg LAB HEMETOLOGY METHOD 01/18/2025 9:31 AM [facility] MCHC 30.8(L) 32.0 - 37.0 g/dL LAB HEMETOLOGY METHOD 01/18/2025 9:31 AM [facility] RDW 16.9(H) 11.0 - 15.0 % LAB HEMETOLOGY METHOD 01/18/2025 9:31 AM [facility] Platelets 231 130 - 400 K/mcL LAB HEMETOLOGY METHOD 01/18/2025 9:31 AM [facility] MPV 11.3(H) 7.0 - 11.0 FL LAB HEMETOLOGY METHOD 01/18/2025 9:31 AM [facility] NRBC 0.0 <1.0 % LAB HEMETOLOGY METHOD 01/18/2025 9:31 AM [facility] NRBC Absolute 0.00 <0.10 K/mcL LAB HEMETOLOGY METHOD 01/18/2025 9:31 AM [facility] Blood Venous blood specimen / Unknown Venipuncture / Unknown 01/18/2025 6:18 AM EDT 01/18/2025 8:41 AM EDT us Shahbaz DAVENPORT LAB BLOOD ORDERABLES Final R esult [facility] [address] [place] [address], * Basic metabolic panel (01/18/2025 6:18 AM EDT) Sodium 142 133 - 145 mmol/L LAB CHEMISTRY METHOD 01/18/2025 9:45 AM [facility] Potassium 4.9 3.5 - 5.5 mmol/L LAB CHEMISTRY METHOD 01/18/2025 9:45 AM [facility] Chloride 108 96 - 110 mmol/L LAB CHEMISTRY METHOD 01/18/2025 9:45 AM [facility] CO2 30 21 - 32 mmol/L LAB CHEMISTRY METHOD 01/18/2025 9:45 AM [facility] Anion Gap 4 3 - 11 LAB CHEMISTRY METHOD 01/18/2025 9:45 AM [facility] Glucose 83 70 - 100 mg/dL LAB CHEMISTRY METHOD 01/18/2025 9:45 AM [facility] BUN 23 5 - 25 mg/dL LAB CHEMISTRY METHOD 01/18/2025 9:45 AM [facility] Creatinine 0.86 0.50 - 1.10 mg/dL LAB CHEMISTRY METHOD 01/18/2025 9:45 AM [facility] eGFR 67 >=60 mL/min/1. 73m2 LAB CHEMISTRY METHOD 01/18/2025 9:45 AM EDT [facility] Comment:Calculation based on the Chronic Kidney Disease Epidemiology Collaboration (CKD-EPI) equation refit without adjustment for race. BUN/Creatinine Ratio 26.7 LAB CHEMISTRY METHOD 01/18/2025 9:45 AM EDT [facility] Calcium 9.3 8.5 - 10.5 mg/dL LAB CHEMISTRY METHOD 01/18/2025 9:45 AM EDT [facility] Blood Venous blood specimen / Unknown Venipuncture / Unknown 01/18/2025 6:18 AM EDT 01/18/2025 8:41 AM EDT us Shahbaz DAVENPORT LAB BLOOD ORDERABLES Final R esult [facility] [address] [place] [address], documented in this encounter Visit Diagnoses Diagnosis Encounter for other general examination documented in this encounter Care Teams Balancer Scale Relationship Specialty Start Date End Date Bridgette Duffy MD [address] [place] [phone] PCP - General 05/13/20 documented as of this encounter
--- OUTSIDE RECORDS SUMMARY | 2025-02-28 16:22 | XMS_ITS | Clinical Summary ---
Author Organization [facility] Address [address] [place] [address] Care Team Providers Care Cable Armorer Name Role Phone Unavailable Primary Care Provider [...] COVID-19 Vaccine ( - 2023-2 5 season) 2025 Influenza (#1) 2025 HPV Vaccine (No Doses Required) Completed Hep A Aged Out No longer eligi [...]
--- OUTSIDE RECORDS SUMMARY | 2025-02-28 16:22 | XMS_ITS | Clinical Summary ---
Author Organization [facility] Address [address] [address] Phone Care Team Providers Care Mining Technician Name Role Phone Pcp, Unknown Primary Care Provider Unavailabl e Allergies Active Allergy Reactions Criticality Noted Date Comments Amoxicillin 02/20/2022 Amoxicillin-Pot Clavulanate Nausea Only 023 Betamethasone 04/01/2022 Clavulanic Acid 02/20/2022 Medications apixaban (ELIQUIS) 5 mg tablet as directed Orally Active citalopram (CELEXA) 20 MG tablet Take 1 tablet by mouth every morning. 3 Active dilTIAZem (TIAZAC) 360 MG 24 hr capsule Take 360 mg by mouth daily. Active famotidine (PEPCID) 20 MG tablet 3 Active ADVAIR DISKUS 500-50 mcg/dose DISKUS TAKE 1 INHALATION 2 TIMES A DAY RINSE MOUTH AND THROAT AFTER USE 3 Active gabapentin (NEURONTIN) 100 MG capsule Take 1 capsule by mouth 2 (two) times a day. 3 Active losartan (COZAAR) 25 MG tablet 3 Active pantoprazole (PROTONIX) 40 MG tablet TAKE 1 TABLET BY MOUTH DAILY FOR 90 DAYS 3 Active tiotropium (SPIRIVA WITH HANDIHALER) 18 mcg inhalation capsule 1 capsule. Active Social History Tobacco Use Types Packs/Day Years Used Date Smoking Tobacco: Never Assessed Education Answer Date Recorded Are you interested in more education? Not on danielle e 02/24/2023 Are you concerned about learning? Not on file 02/24/2023 No 02/24/2023 No 02/24/2023 Digital Access Answer Date Recorded No 02/24/2023 No 02/24/2023 Reliable internet access at home? Not on file 02/24/2023 Device with a working camera? Not on file Comments Unknown Sex and Gender Information Value Date Recorded Sex Assigned at Female 02/24/2023 12:35 PM EDT Legal Sex Female 10:12 PM EDT Gender Identity Female 02/24/2023 12:35 PM EDT Sexual Orientation Straight 02/24/2023 12 :35 PM EDT Last Filed Vital Signs Vital Sign Reading Time Taken Comments Blood Pressure 148/81 02/24/2023 5:59 PM EDT Pulse 68 02/24/2023 5:59 PM EDT Temperature 36.4 C (97.5 F) 02/24/2023 2:33 PM EDT Respiratory Rate 18 02/24/2023 5:59 PM EDT Oxygen Saturation 97% 02/24/2023 5:59 PM EDT Inhaled Oxygen Concentration - - Weight - - Height - - Body Mass Index - - Plan of Treatment Health Maintenance Due Date Last Done Comments Adult Td,Tdap Booster 1941 CREATININE LEVEL 1941 POTASSIUM LEVEL 1941 DEPRESSION SCREENING 1953 PNEUMOCOCCAL VACCINES (50+ y ears) (1 of 1 - PCV) 1991 ZOSTER VACCINES (1 of 2) 1991 OSTEOPOROSIS SCREENING INITI AL (ONE-TIME) 2006 RSV VACCINE (1 - 1-dose 75+ series) 2016 INFLUENZA VACCINE (#1) 2025 COVID-19 VACCINE ( - 2023-2 5 season) 2025 HEPATITIS A VACCINES Aged Out No long er eligible based on patient's age to complete this topic HIB VACCINES Aged Out No longer eligi ble based on patient's age to complete this topic MENINGOCOCCAL VACCINES (ACWY) Aged Out No longer eligible based on patient's age to complete this topic MENINGOCOCCAL VACCINES (B) Aged Out N o longer eligible based on patient's age to complete this topic Medical Devices Not on file Insurance MEDICARE PART A & B [employer] MED[employer] SUPPLEMENT MEDICARE PART A & B [employer] MED[employer] SUPPLEMENT MEDICARE PART A & B [employer] SU[employer] MEDICARE PART A & B [employer] SU[employer] MEDICARE PART A & B [employer] SUPPLEMENT MEDICARE PART A & B [employer] SUPPLEMENT Care Teams Mining Technician Relationship Specialty Start Date End Date Pcp, Unknown PCP - General 02/24/23 Additional Source Comments The information contained in this document represents components of the legal health record. It is not the complete legal health record.[facility]
--- OUTSIDE RECORDS SUMMARY | 2025-02-28 16:22 | XMS_ITS | Encounter Summary ---
Author Organization [facility] Address [address] [place] [address] Care Team Providers Care Human Resource Assistant Name Role Phone Bridgette Duffy MD Primary Care Provider [phone] [phone] Encounter Details Date Type Department Care Team (Late st Contact Info) Description 10/29/2024 Lab Requisition [facility] - Main Lab 299 [facility] [place] [address] Connor Solitario MD [address] [place] [phone] Essential (primary) hypertension; Anemia, unspecified Social History Tobacco Use Types [...] Description 04/04/2025 3:00 PM EDT Ancillary Procedure [facility] - [facility] [address] [facility] [address] [place] [address] documented as of this encounter Visit Diagnoses Diagnosis Essential (primary) hypertension Unspecified essential hypertension Anemia, unspecified documented in this encounter Care Teams Human Resource Assistant Relationship Specialty Start Date End Date Bridgette Duffy MD [address] [place] [address] PCP - General 05/13/20 documented as of this encounter
--- OUTSIDE RECORDS SUMMARY | 2025-02-28 16:22 | XMS_ITS | Encounter Summary ---
Author Organization [facility] Address [address] [facility] [address] [place] [address] Phone Care Team Providers Care Grill Prep Cook Name Role Phone Pcp, Unknown Primary Care Provider Unavailabl e Reason for Referral * Occupational Therapy (Within 1 month) - Closed Specialty Diagnoses / Procedures Referred By Jt t Referred To Contact Occupational Therapy Diagnoses Encounter for rehabilitation Bobo Elam MD [address] [place] [address] [place] [address] Phone: tel: fax: [facility] [address] [place] [address] Phone: tel: Referral ID Status Reason Start Date Expiration Date Visits Re quested Visits Authorized [id number] Closed 08/19/2023 08/18/2024 99 99 Encounter Details Date Type Department Care Team (Latest Contact Info) Description 08/19/2023 Transcribe Orders [facility] [address] [place] [address] Bobo Elam MD [address] [place] [address] [place] [phone] Encounter for rehabilitation (Primary Dx) Social History Tobacco Use Types Packs/Day Years [...] Orientation Straight 02/24/2023 12 :35 PM EDT documented as of this encounter Plan of Treatment Scheduled Referrals Name Type Priority Associated Diagnoses Orde r Schedule Ambulatory referral to [facility] Occupational Therapy Outpatient Referral Routine Encounter for rehabilitation Ordered: 08/19/2023 documented as of this encounter Visit Diagnoses Diagnosis Encounter for rehabilitation- Primary documented in this encounter Care Teams Grill Prep Cook Relationship Specialty Start Date End Date Pcp, Unknown PCP - General 02/24/23 documented as of this encounter Additional Source Comments The information contained in this document represents components of the legal health record. It is not the complete legal health record.[facility]
--- OUTSIDE RECORDS SUMMARY | 2025-02-28 16:22 | XMS_ITS | Encounter Summary ---
Author Organization [facility] Address [address] [place] [address] Care Team Providers Care Interviewing Clerk Name Role Phone Bridgette Duffy MD Primary Care Provider [phone] Encounter Details Date Type Department Care Team (Late Contact Info) Description 10/24/2024 Lab Requisition [facility] - Main Lab 299 [facility] [place] [address] Connor Solitario MD [address] [place] [address] Anemia, unspecified Social History Tobacco Use Types [...] Description 04/04/2025 3:00 PM EDT Ancillary Procedure [facility] - [address] [facility] [address] [place] [phone] documented as of this encounter Procedures Procedure Name Priority Date/Time Associated Diagnosis Comments COMPLETE BLOOD COUNT Routine 10/25/2024 4:48 AM EDT Anemia, unspecified documented in this encounter Results * (ABNORMAL) Complete blood count (10/25/2024 4:48 AM EDT) [facility] WBC 5.9 4.8 - 10.8 K/mcL LAB HEMETOLOGY METHOD 10/25/2024 8:54 AM [facility] RBC 2.60(L) 3.80 - 4.80 M/mcL LAB HEMETOLOGY [facility]24 [facility] Hemoglobin 6.9(L) 11.5 - 16.0 g/dL LAB HEMETOLOGY METHOD 10/25/2024 8:54 AM [facility] Hematocrit 23.2(L) 35.0 - 47.0 % LAB HEMETOLOGY METHOD 10/25/2024 8:54 AM [facility] MCV 90.3 79.0 - 98.0 FL LAB HEMETOLOGY METHOD 10/25/2024 8:54 AM [facility] MCH 26.8(L) 27.0 - 32.0 pcg LAB HEMETOLOGY METHOD 10/25/2024 8:54 AM [facility] MCHC 29.7(L) 32.0 - 37.0 g/dL LAB HEMETOLOGY METHOD 10/25/2024 8:54 AM [facility] RDW 18.4(H) 11.0 - 15.0 % LAB HEMETOLOGY METHOD 10/25/2024 8:54 AM [facility] Platelets 272 130 - 400 K/mcL LAB HEMETOLOGY METHOD 10/25/2024 8:54 AM [facility] MPV 11.5(H) 7.0 - 11.0 FL LAB HEMETOLOGY METHOD 10/25/2024 8:54 AM [facility] NRBC 0.0 <1.0 % LAB HEMETOLOGY METHOD 10/25/2024 8:54 AM [facility] NRBC Absolute 0.00 <0.10 K/[facility] LAB HEMETOLOGY METHOD 10/25/2024 8:54 AM EDT [facility] Blood Venous blood specimen / Unknown Venipuncture / Unknown 10/25/2024 4:48 AM EDT 10/25/2024 8:28 AM EDT us Connor Solitario MD LAB BLOOD ORDERABLES Final Result [facility] [address] [place] [address], documented in this encounter Visit Diagnoses Diagnosis Anemia, unspecified documented in this encounter Care Teams Interviewing Clerk Relationship Specialty Start Date End Date Bridgette Duffy MD [address] [place] [phone] PCP - General 05/13/20 documented as of this encounter
--- OUTSIDE RECORDS SUMMARY | 2025-02-28 16:22 | XMS_ITS | Encounter Summary ---
Author Organization [facility] Address [address] [place] [address] Care Team Providers Care Manager Subway Name Role Phone Bridgette Duffy MD Primary Care Provider [phone] Encounter Details Date Type Department Care Team (Late st Contact Info) Description 10/23/2024 Lab Requisition [facility] - Main Lab [address] [facility] [place] [address] Connor Solitario MD [address] [place] [address] Essential (primary) hypertension; Anemia, unspecified; Unspecified atrial fibrillation (CMS/HCC V24, CMS/HCC V28) Social History Tobacco Use Types Packs/Day Years [...] Description 04/04/2025 3:00 PM EDT Ancillary Procedure [facility] - [facility] [address] [facility] [address] [place] [phone] documented as of this encounter Procedures Procedure Name Priority Date/Time Associated Diagnosis Comments COMPLETE BLOOD COUNT Routine 10/23/2024 9:01 AM EDT Essential (primary) hypertension Anemia, unspecified Unspecified atrial fibrillation (CMS/HCC V24, CMS/HCC V28) BASIC METABOLIC PANEL Routine 10/23/2024 9:01 AM EDT Essential (primary) hypertension Anemia, unspecified Unspecified atrial fibrillation (CMS/HCC V24, CMS/HCC V28) documented in this encounter Results * Basic metabolic panel (10/23/2024 9:01 AM EDT) Sodium 139 133 - 145 mmol/L LAB CHEMISTRY METHOD 10/23/2024 1:52 PM [facility] Potassium 4.1 3.5 - 5.5 mmol/L LAB CHEMISTRY METHOD 10/23/2024 1:52 PM [facility] Chloride 108 96 - 110 mmol/L LAB CHEMISTRY METHOD 10/23/2024 1:52 PM [facility] CO2 25 21 - 32 mmol/L LAB CHEMISTRY METHOD 10/23/2024 1:52 PM [facility] Anion Gap 6 3 - 11 LAB CHEMISTRY METHOD 10/23/2024 1:52 PM [facility] Glucose 93 70 - 100 mg/dL LAB CHEMISTRY METHOD 10/23/2024 1:52 PM [facility] BUN 11 5 - 25 mg/dL LAB CHEMISTRY METHOD 10/23/2024 1:52 PM [facility] Creatinine 0.71 0.50 - 1.10 mg/dL LAB CHEMISTRY METHOD 10/23/2024 1:52 PM [facility] eGFR 84 >=60 mL/min/1. 73m2 LAB CHEMISTRY METHOD 10/23/2024 1:52 PM [facility] Comment:Calculation based on the Chronic Kidney Disease Epidemiology Collaboration (CKD-EPI) equation refit without adjustment for race. BUN/Creatinine Ratio 15.5 LAB CHEMISTRY METHOD 10/23/2024 1:52 PM [facility] Calcium 9.0 8.5 - 10.5 mg/dL LAB CHEMISTRY METHOD 10/23/2024 1:[address] [facility] Blood Venous blood specimen / Unknown Venipuncture / Unknown 10/23/2024 9:01 AM EDT 10/23/2024 12:09 PM EDT us Connor Solitario MD LAB BLOOD ORDERABLES Final Result [facility] [address] [place] [address], [place] [phone] * (ABNORMAL) Complete blood count (10/23/2024 9:01 AM EDT) WBC 5.4 4.8 - 10.8 K/mcL LAB HEMETOLOGY METHOD 10/23/2024 1:[address] [facility] RBC 3.00(L) 3.80 - 4.80 M/mcL LAB HEMETOLOGY METHOD 10/23/2024 1:[address] [facility] Hemoglobin 8.2(L) 11.5 - 16.0 g/dL LAB HEMETOLOGY METHOD 10/23/2024 1:[address] [facility] Hematocrit 26.9(L) 35.0 - 47.0 % LAB HEMETOLOGY METHOD 10/23/2024 1:[address] [facility] MCV 90.0 79.0 - 98.0 FL LAB HEMETOLOGY METHOD 10/23/2024 1:[address] [facility] MCH 27.4 27.0 - 32.0 pcg LAB HEMETOLOGY METHOD 10/23/2024 1:12 PM [facility] MCHC 30.5(L) 32.0 - 37.0 g/dL LAB HEMETOLOGY [facility] RDW 18.8(H) 11.0 - 15.0 % LAB HEMETOLOGY METHOD 10/23/2024 1:[address] [facility] Platelets 305 130 - 400 K/mcL LAB HEMETOLOGY METHOD 10/23/2024 1:[address] [facility] MPV 11.7(H) 7.0 - 11.0 FL LAB HEMETOLOGY METHOD 10/23/2024 1:[address] [facility] NRBC 0.0 <1.0 % LAB HEMETOLOGY METHOD 10/23/2024 1:[address] [facility] NRBC Absolute 0.00 <0.10 K/mcL LAB HEMETOLOGY METHOD 10/23/2024 1:[address] [facility] Blood Venous blood specimen / Unknown Venipuncture / Unknown 10/23/2024 9:01 AM EDT 10/23/2024 12:09 PM EDT us Connor Solitario MD LAB BLOOD ORDERABLES Final Result [facility] [address] [place] [address], documented in this encounter Visit Diagnoses Diagnosis Essential (primary) hypertension Unspecified essential hypertension Anemia, unspecified Unspecified atrial fibrillation (CMS/HCC V24, CMS/HCC V28) documented in this encounter Care Teams Manager Subway Relationship Specialty Start Date End Date [facility]idgette Duffy [facility] [place] [phone] PCP - General 05/13/20 documented as of this encounter
--- OUTSIDE RECORDS SUMMARY | 2025-02-28 16:22 | XMS_ITS | Encounter Summary ---
Author Organization [facility] Address [address] [place] [address] Care Team Providers Care Authorization Coordinator Name Role Phone Bridgette Duffy MD Primary Care Provider [phone] Encounter Details Date Type Department Care Team (Late Contact Info) Description 10/26/2024 Lab Requisition [facility] - Main Lab [address] [facility] [place] [address] Connor Solitario MD [address] [place] [address] Anemia, unspecified Social History Tobacco Use Types [...] Description 04/04/2025 3:00 PM EDT Ancillary Procedure [facility] - [facility] [address] [facility] [address] [place] [phone] documented as of this encounter Procedures Procedure Name Priority Date/Time Associated Diagnosis Comments COMPLETE BLOOD COUNT Routine 10/26/2024 8:54 AM EDT Anemia, unspecified documented in this encounter Results * (ABNORMAL) Complete blood count (10/26/2024 8:54 AM EDT) [facility] WBC 5.5 4.8 - 10.8 K/mcL LAB HEMETOLOGY METHOD 10/26/2024 10:23 AM [facility] RBC 3.00(L) 3.80 - 4.80 M/mcL LAB HEMETOLOGY METHOD 10/26/2024 10:23 AM [facility] Hemoglobin 8.1(L) 11.5 - 16.0 g/dL LAB HEMETOLOGY METHOD 10/26/2024 10:23 AM [facility] Hematocrit 26.8(L) 35.0 - 47.0 % LAB HEMETOLOGY METHOD 10/26/2024 10:23 AM [facility] MCV 90.8 79.0 - 98.0 FL LAB HEMETOLOGY METHOD 10/26/2024 10:23 AM [facility] MCH 27.5 27.0 - 32.0 pcg LAB HEMETOLOGY METHOD 10/26/2024 10:23 AM [facility] MCHC 30.2(L) 32.0 - 37.0 g/dL LAB HEMETOLOGY METHOD 10/26/2024 10:23 AM [facility] RDW 18.8(H) 11.0 - 15.0 % LAB HEMETOLOGY METHOD 10/26/2024 10:23 AM [facility] Platelets 320 130 - 400 K/mcL LAB HEMETOLOGY METHOD 10/26/2024 10:23 AM [facility] MPV 11.5(H) 7.0 - 11.0 FL LAB HEMETOLOGY METHOD 10/26/2024 10:23 AM [facility] NRBC 0.0 <1.0 % LAB HEMETOLOGY METHOD 10/26/2024 10:23 AM [facility] NRBC Absolute 0.00 <0.10 K/mcL LAB HEMETOLOGY METHOD 10/26/2024 10:23 AM EDT [facility] Blood Venous blood specimen / Unknown Venipuncture / Unknown 10/26/2024 8:54 AM EDT 10/26/2024 10:12 AM EDT us Connor Solitario MD LAB BLOOD ORDERABLES Final Result [facility] [address] [place] [address], documented in this encounter Visit Diagnoses Diagnosis Anemia, unspecified documented in this encounter Care Teams Authorization Coordinator Relationship Specialty Start Date End Date Bridgette Duffy MD [facility] [place] [address] PCP - General 05/13/20 documented as of this encounter
== END 2025-02-28 13:48 | disposition home or self-care (01) ==
LOC: HO.HOS 13:20
PROVIDERS: Visit Provider Physician Assistant
DX: S32.592A Other specified fracture of left pubis, initial encounter for closed fracture (principal)
CPT/HCPCS: 99213

== ENCOUNTER → 2025-02-28 13:23 | Outpatient (BNV) | payer MEDICARE, SELFPAY | PROVIDERS: Visit Provider Radiology Diagnostic Radiology | DX: M25.552 Pain in left hip (principal) | CPT/HCPCS: 72170 ==

== ENCOUNTER 2025-03-16 14:13 | Outpatient (REF) | payer MEDICARE, SELFPAY ==
--- NOTE | ~2025-03-16 | US_ITS ---
CLINICAL HISTORY: N20.0 - Calculus of kidney US renal with Color Doppler Comparison: CR/SR - XR KUB - 01/03/25 06:[address]/SR - CT ABDOMEN W IV CON - 08/31/24 16:41 EDT Findings: Right kidney normal size and echotexture, 9.9 cm length. No hydronephrosis or mass. Normal color flow. Nonobstructing caliceal stones largest upper pole measuring 8 mm and midpole measuring 5 mm. Left kidney normal size and echotexture, 10.7 cm length. No hydronephrosis or mass. Normal color flow. Nonobstructing caliceal stones largest measuring 3 mm midpole 5 mm upper pole and a nonobstructing stone measuring 13 mm near the UPJ junction. CT would be confirmatory Impression: 1. Kidneys normal-size and position with normal cortical width and echotexture. Bilateral nonobstructing caliceal stones. Left UPJ stone can be correlated with noncontrast CT of the abdomen and pelvis renal stone protocol. This document has been electronically signed by: Zack Regan MD on 03/17/2025 15:35:10
--- OUTSIDE RECORDS SUMMARY | 2025-03-16 15:18 | XMS_ITS | Clinical Summary ---
Author Organization [address] [place] [address] [place] [phone] Phone Care Team Providers Care Charge Entry Specialist Name Role Phone Bridgette Duffy MD Primary Care Provider [phone] Allergies Active Allergy Reactions Criticality Noted Date [...] she agreed to have this done at [facility]. She will agree to continue anticoagulation and we can reevaluate whether that is necessary to continue long-term based on her [id number] score and any evidence of recurrent arrhythmia. She understands that he potential risks of venous access complications, cardiac perforation and tamponade, catheter related thrombus resulting in UT or stroke. He had Benign essential hypertension 07/31/2020 Overview (07/05/2024): Benign essential hypertension under excellent control. Last Assessment & Plan: Well rate controlled on current medications. Continue low-sodium diet. Supraventricular premature beats 07/31/2020 Overview (07/05/2024): Premature beats Supraventricular premature beats Encounters Date Type Department Care Team Description 01/18/2025 Lab Requisition [facility] - Main Lab 299 [facility] [place] [address] Shahbaz Resendiz PA Encounter for other general examination 01/15/2025 Lab Requisition [facility] - Main Lab 299 [place] [phone] Sandra Osman PA Encounter for other general examination 01/13/2025 Lab Requisition [facility] - Main Lab [address] [place] [phone] Sandra Osman PA Encounter for other general examination 01/07/2025 Lab Requisition [facility] - Main Lab [address] [place] [phone] Rylee Menchaca NP Encounter for other general examination 01/02/2025 8:40 AM EDT Office Visit [facility] Cardiology [facility] [address] [place] [phone] Isaura Shelby NP Longstanding persistent atrial fibrillation (CMS/HCC V24, CMS/HCC V28) (Primary Dx) 12/29/2024 Telephone [facility] Cardiology [facility] - [facility] [address] [place] [address] Bridgette Duffy MD 12/18/2024 7:50 AM EDT Ancillary Procedure [facility] Cardiology [facility] - [address] [place] [address] from Last 3 Months Immunizations Name Administration Dates Next Due Pfizer SARS-CoV-2 COVID-19, mRNA, LNP-S, preservative free 04/24/2021,08/16/2020,07/26/2020 Surgical History Surgery Date Site/Laterality Comments OTHER SURGICAL HISTORY 10/14/2015 PROCEDURE: [facility] ENDOSCOPY UPPER SMALL INTESTINE CATARACT EXTRACTION PROCEDURE: HISTORICAL CATARACT REMOVAL; COMMENT: 12/19/14, 10/31/14 OTHER SURGICAL HISTORY 01/19/2014 PROCEDURE: HISTORY OTHER BREAST LUMPECTOMY 11/14/2013 PROCEDURE: HISTORICAL BREAST LUMPECTOMY OTHER SURGICAL HISTORY 09/25/2011 PROCEDURE: PFT FULL (60 MINUTES) OTHER SURGICAL HISTORY 07/26/2009 PROCEDURE: [facility] ECHO TRANSTHORAC R-T 2D W/WO M-MODE REC COMP OTHER SURGICAL HISTORY 07/26/2009 PROCEDURE: OUTSIDE HOLTER MONITOR OTHER SURGICAL HISTORY 06/25/2008 PROCEDURE: PFT FULL (60 MINUTES) APPENDECTOMY PROCEDURE: HISTORICAL APPENDECTOMY HYSTERECTOMY PROCEDURE: HISTORICAL HYSTERECTOMY OTHER SURGICAL HISTORY 01/19/2014 PROCEDURE: HISTORY OTHER; COMMENT: [place] lymph node biopsy Medical History Medical History [...] Description 04/04/2025 3:00 PM EDT Ancillary Procedure [facility] - [facility] [address] [facility] [address] [place] [address] Health Maintenance Due Date Last Done Comments [...] this topic Medical Devices Implanted Type Area Tuber Helper Device Identifier Shelf Expiration Date Model / Serial / Lot Bsci-Crm [id number] Implanted: (Quantity not on file) Cardiac Pacemaker [employer]HY[employer] MGMT [id number] / [id number] / Device Clsur Watchman Flx Magda 27mm Bsci-Prnt [id number] Implanted:Qty : 1 on 06/03/2023 by Alexandro Llanes MD Left: Heart FanKave JOSE RAFAEL 03/01/2026 [id number] / / [id number] Description:Implanted in lef t atrial appendage. Procedures [...] of3 resultswithin the time period is included. [facility] Signature WBC 6.7 4.8 - 10.8 K/mcL LAB HEMETOLOGY METHOD 01/18/2025 9:31 AM [facility] RBC 3.00(L) 3.80 - 4.80 M/mcL LAB HEMETOLOGY METHOD 01/18/2025 9:31 AM [facility] Hemoglobin 8.1(L) 11.5 - 16.0 g/dL LAB HEMETOLOGY METHOD 01/18/2025 9:31 AM [facility] Hematocrit 26.3(L) 35.0 - 47.0 % LAB HEMETOLOGY METHOD 01/18/2025 9:31 AM [facility] MCV 88.6 79.0 - 98.0 FL LAB HEMETOLOGY METHOD 01/18/2025 9:31 AM [facility] MCH 27.3 27.0 - 32.0 pcg LAB HEMETOLOGY METHOD 01/18/2025 9:31 AM [facility] MCHC 30.8(L) 32.0 - 37.0 g/dL LAB HEMETOLOGY METHOD 01/18/2025 9:31 AM [facility] RDW 16.9(H) 11.0 - 15.0 % LAB HEMETOLOGY METHOD 01/18/2025 9:31 AM [facility] Platelets 231 130 - 400 K/mcL LAB HEMETOLOGY METHOD 01/18/2025 9:31 AM [facility] MPV 11.3(H) 7.0 - 11.0 FL LAB HEMETOLOGY METHOD 01/18/2025 9:31 AM [facility] NRBC 0.0 <1.0 % LAB HEMETOLOGY METHOD 01/18/2025 9:31 AM [facility] NRBC Absolute 0.00 <0.10 K/mcL LAB HEMETOLOGY METHOD 01/18/2025 9:31 AM [facility] Blood Venous blood specimen / Unknown Venipuncture / Unknown 01/18/2025 6:18 AM EDT 01/18/2025 8:41 AM EDT Shahbaz DAVENPORT LAB BLOOD ORDERABLES Final R esult [facility] [address] [place] [address], * Basic metabolic panel (01/18/2025 6:18 AM EDT) Sodium 142 133 - 145 mmol/L LAB CHEMISTRY METHOD 01/18/2025 9:45 AM [facility] Potassium 4.9 3.5 - 5.5 mmol/L LAB CHEMISTRY METHOD 01/18/2025 9:45 AM [facility] Chloride 108 96 - 110 mmol/L LAB CHEMISTRY METHOD 01/18/2025 9:45 AM [facility] CO2 30 21 - 32 mmol/L LAB CHEMISTRY METHOD 01/18/2025 9:45 AM [facility] Anion Gap 4 3 - 11 LAB CHEMISTRY METHOD 01/18/2025 9:45 AM [facility] Glucose 83 70 - 100 mg/dL LAB CHEMISTRY METHOD 01/18/2025 9:45 AM [facility] BUN 23 5 - 25 mg/dL LAB CHEMISTRY METHOD 01/18/2025 9:45 AM [facility] Creatinine 0.86 0.50 - 1.10 mg/dL LAB CHEMISTRY METHOD 01/18/2025 9:45 AM [facility] eGFR 67 >=60 mL/min/1. 73m2 LAB CHEMISTRY METHOD 01/18/2025 9:[address] [facility] Comment:Calculation based on the Chronic Kidney Disease Epidemiology Collaboration (CKD-EPI) equation refit without adjustment for race. BUN/Creatinine Ratio 26.7 LAB CHEMISTRY METHOD 01/18/2025 9:[address] [facility] Calcium 9.3 8.5 - 10.5 mg/dL LAB CHEMISTRY METHOD 01/18/2025 9:[address] [facility] Blood Venous blood specimen / Unknown Venipuncture / Unknown 01/18/2025 6:18 AM EDT 01/18/2025 8:41 AM EDT us Shahbaz DAVENPORT LAB BLOOD ORDERABLES Final R esult [facility] [address] [place] [address], * (ABNORMAL) CBC auto differential (01/07/2025 5:49 AM EDT) WBC 7.9 4.8 - 10.8 K/mcL LAB HEMETOLOGY METHOD 01/07/2025 9:05 AM [facility] RBC 3.10(L) 3.80 - 4.80 M/mcL LAB HEMETOLOGY METHOD 01/07/2025 9:05 AM [facility] Hemoglobin 8.3(L) 11.5 - 16.0 g/dL LAB HEMETOLOGY METHOD 01/07/2025 9:05 AM [facility] Hematocrit 27.3(L) 35.0 - 47.0 % LAB HEMETOLOGY METHOD 01/07/2025 9:05 AM [facility] MCV 88.6 79.0 - 98.0 FL LAB HEMETOLOGY METHOD 01/07/2025 9:05 AM [facility] MCH 26.9(L) 27.0 - 32.0 pcg LAB HEMETOLOGY METHOD 01/07/2025 9:05 AM [facility] MCHC 30.4(L) 32.0 - 37.0 g/dL LAB HEMETOLOGY METHOD 01/07/2025 9:05 AM [facility] RDW 16.6(H) 11.0 - 15.0 % LAB HEMETOLOGY METHOD 01/07/2025 9:05 AM [facility] Platelets 197 130 - 400 K/mcL LAB HEMETOLOGY METHOD 01/07/2025 9:05 AM [facility] MPV 11.5(H) 7.0 - 11.0 FL LAB HEMETOLOGY METHOD 01/07/2025 9:05 AM [facility] NRBC 0.0 <1.0 % LAB HEMETOLOGY METHOD 01/07/2025 9:05 AM [facility] NRBC Absolute 0.00 <0.10 K/mcL LAB HEMETOLOGY METHOD 01/07/2025 9:05 AM [facility] Neutrophils Relative 79.1 % LAB HEMETOLOGY METHOD 01/07/2025 9:05 AM [facility] Lymphocytes Relative 9.0 % LAB HEMETOLOGY METHOD 01/07/2025 9:05 AM [facility] Monocytes Relative 8.5 % LAB HEMETOLOGY METHOD 01/07/2025 9:05 AM [facility] Eosinophils Relative 2.5 % LAB HEMETOLOGY METHOD 01/07/2025 9:05 AM [facility] Basophils Relative 0.4 % LAB HEMETOLOGY METHOD 01/07/2025 9:05 AM [facility] Immature Granulocytes Relative 0.5 % LAB HEMETOLOGY METHOD 01/07/2025 9:[address] [facility] Neutrophils Absolute 6.25 1.50 - 7.00 K/mcL LAB HEMETOLOGY METHOD 01/07/2025 9:[address] [facility] Lymphocytes Absolute 0.71(L) 1.00 - 5.00 K/mcL LAB HEMETOLOGY METHOD 01/07/2025 9:[address] [facility] Monocytes Absolute 0.67 0.20 - 1.00 K/mcL LAB HEMETOLOGY METHOD 01/07/2025 9:[address] [facility] Eosinophils Absolute 0.20 0.00 - 0.50 K/mcL LAB HEMETOLOGY METHOD 01/07/2025 9:[address] [facility] Basophils Absolute 0.03 0.00 - 0.20 K/mcL LAB HEMETOLOGY METHOD 01/07/2025 9:[address] [facility] Immature Granulocytes Absolute 0.04(H) 0.00 - 0.03 K/mcL LAB HEMETOLOGY METHOD 01/07/2025 9:[address] [facility] Blood Venous blood specimen / Unknown Venipuncture / Unknown 01/07/2025 5:49 AM EDT 01/07/2025 8:38 AM EDT us Rylee Menchaca JOB SETTER LAB BLOOD ORDERABLES Final Resul t [facility] [address] [place] [address], * Magnesium (01/07/2025 5:49 AM EDT) Magnesium 2.1 1.9 - 2.6 mg/dL LAB CHEMISTRY METHOD 01/07/2025 9:[address] [facility] Blood Venous blood specimen / Unknown Venipuncture / Unknown 01/07/2025 5:49 AM EDT 01/07/2025 8:38 AM EDT us Rylee Menchaca JOB SETTER LAB BLOOD ORDERABLES Final Resul t [facility] [address] [place] [address], * (ABNORMAL) Comprehensive metabolic panel (01/07/2025 5:49 AM EDT) Sodium 139 133 - 145 mmol/L LAB CHEMISTRY METHOD 01/07/2025 9:29 AM [facility] Potassium 4.3 3.5 - 5.5 mmol/L LAB CHEMISTRY METHOD 01/07/2025 9:29 AM [facility] Chloride 105 96 - 110 mmol/L LAB CHEMISTRY METHOD 01/07/2025 9:29 AM [facility] CO2 30 21 - 32 mmol/L LAB CHEMISTRY METHOD 01/07/2025 9:29 AM [facility] Anion Gap 4 3 - 11 LAB CHEMISTRY METHOD 01/07/2025 9:29 AM [facility] Glucose 91 70 - 100 mg/dL LAB CHEMISTRY METHOD 01/07/2025 9:29 AM [facility] BUN 22 5 - 25 mg/dL LAB CHEMISTRY METHOD 01/07/2025 9:29 AM [facility] Creatinine 0.99 0.50 - 1.10 mg/dL LAB CHEMISTRY METHOD 01/07/2025 9:29 AM [facility] eGFR 57(L) >=60 mL/min/1. 73m2 LAB CHEMISTRY METHOD 01/07/2025 9:29 AM [facility] Comment:Calculation based on the Chronic Kidney Disease Epidemiology Collaboration (CKD-EPI) equation refit without adjustment for race. BUN/Creatinine Ratio 22.2 LAB CHEMISTRY METHOD 01/07/2025 9:29 AM [facility] Calcium 9.0 8.5 - 10.5 mg/dL LAB CHEMISTRY METHOD 01/07/2025 9:29 AM [facility] AST (SGOT) 7(L) 10 - 42 unit/L LAB CHEMISTRY METHOD 01/07/2025 9:29 AM [facility] ALT (SGPT) 16 10 - 60 unit/L LAB CHEMISTRY METHOD 01/07/2025 9:29 AM [facility] Alkaline Phosphatase 65 42 - 121 unit/L LAB CHEMISTRY METHOD 01/07/2025 9:29 AM [facility] Total Protein 5.8(L) 6.0 - 8.0 g/dL LAB CHEMISTRY METHOD 01/07/2025 9:29 AM [facility] Albumin 2.8(L) 3.2 - 5.0 g/dL LAB CHEMISTRY METHOD 01/07/2025 9:29 AM [facility] Total Bilirubin 0.3 0.0 - 1.4 mg/dL LAB CHEMISTRY METHOD 01/07/2025 9:29 AM [facility] Blood Venous blood specimen / Unknown Venipuncture / Unknown 01/07/2025 5:49 AM EDT 01/07/2025 8:38 AM EDT Rylee Menchaca NP LAB BLOOD ORDERABLES Final Resul t [facility] [address] [place] [address], * Cardiac device check - Remote- MURJ (12/18/2024 7:48 AM EDT) Date Time Interrogation Session [id number] CV DEVICE CHECK Type Interrogation Session Remote Scheduled CV DEVICE CHECK Implantable Pulse Generator Tuber Helper BSX CV DEVICE CHECK Implantable Pulse Generator Type IPG CV DEVICE CHECK Implantable Pulse Generator Model L110 CV DEVICE CHECK Implantable Pulse Generator Serial Number [id number] CV DEVICE CHECK Implantable Pulse Generator Implant [...] Result from Last 3 Months Insurance MEDICARE [facility] Care Teams Charge Entry Specialist Relationship Specialty Start Date End Date Bridgette Duffy MD [address] [place] [phone] PCP - General 05/13/20
--- OUTSIDE RECORDS SUMMARY | 2025-03-16 15:19 | XMS_ITS | Clinical Summary ---
Author Organization [facility] Address [address] [address] Phone Care Team Providers Care Steel Detailer Name Role Phone Pcp, Unknown Primary Care [...] file Insurance MEDICARE PART A & B [employer] MEDEX SUPPLEMENT MEDICARE PART A & B Utility Scale [employer] MEDEX SUPPLEMENT MEDICARE PART A & B Utility Scale [employer] MED[employer] SUPPLEMENT MEDICARE PART A & B Utility Scale [place] MED[employer] SUPPLEMENT MEDICARE PART A & B Utility Scale [place] MEDEX SUPPLEMENT MEDICARE PART A & B Utility Scale [place] MEDEX SUPPLEMENT Care Teams Steel Detailer Relationship Specialty Start Date End Date Pcp, Unknown PCP - General 02/24/23 Additional Source Comments The information contained in this document represents components of the legal health record. It is not the complete legal health record.[facility]
--- OUTSIDE RECORDS SUMMARY | 2025-03-16 15:19 | XMS_ITS | Encounter Summary ---
Author Organization [facility] Address [address] [facility] [address] [place] [address] Phone Care Team Providers Care Cnc Lathe Programmer Name Role Phone Pcp, Unknown Primary Care Provider Unavailabl e Reason for Referral * Occupational Therapy (Within 1 month) - Closed Specialty Diagnoses / Procedures Referred By Jt t Referred To Contact Occupational Therapy Diagnoses Encounter for rehabilitation Bobo Elam MD [address] [place] [address] [place] [address] Phone: tel: fax: [facility] [address] [place] [address] Phone: tel: Referral ID Status Reason Start Date Expiration Date Visits Re quested Visits Authorized [id number] Closed 08/19/2023 08/18/2024 99 [phone] Encounter Details Date Type Department Care Team (Latest Contact Info) Description 08/19/2023 Transcribe Orders [facility] [address] [place] [address] Bboo Elam MD [address] [place] [address] [place] [id number] Encounter for rehabilitation (Primary Dx) Social History [...] Diagnoses Orde r Schedule Ambulatory referral to [facility] Occupational Therapy Outpatient Referral Routine Encounter for rehabilitation Ordered: 08/19/2023 documented as of this encounter Visit Diagnoses Diagnosis Encounter for rehabilitation- Primary documented in this encounter Care Teams Cnc Lathe Programmer Relationship Specialty Start Date End Date Pcp, Unknown PCP - General 02/24/23 documented as of this encounter Additional Source Comments The information contained in this document represents components of the legal health record. It is not the complete legal health record.[facility]
--- OUTSIDE RECORDS SUMMARY | 2025-03-16 15:19 | XMS_ITS | Encounter Summary ---
Author Organization [facility] Address [address] [place] [address] Care Team Providers Care Gas Engine Mechanic Name Role Phone Bridgette Duffy MD Primary Care Provider [phone] Encounter Details Date Type Department Care Team (Late st Contact Info) Description 10/23/2024 Lab Requisition [facility] - Main Lab [address] [facility] [place] [address] Connor Solitario MD [address] [place] [phone] Essential (primary) hypertension; Anemia, unspecified; Unspecified atrial [...] Description 04/04/2025 3:00 PM EDT Ancillary Procedure [facility] - [facility] [address] [facility] [address] [place] [phone] documented as of this encounter Procedures Procedure [...] LAB CHEMISTRY METHOD 10/23/2024 1:52 PM EDT [facility] Blood Venous blood specimen / Unknown Venipuncture / Unknown 10/23/2024 9:01 AM EDT 10/23/2024 12:09 PM EDT us Connor Solitario MD LAB BLOOD ORDERABLES Final Result [facility] [address] [place] [address], [place] [phone] * (ABNORMAL) Complete blood count (10/23/2024 9:01 AM EDT) WBC 5.4 4.8 - 10.8 K/mcL LAB HEMETOLOGY METHOD 10/23/2024 1:12 PM EDT [facility] RBC 3.00(L) 3.80 - 4.80 M/mcL LAB HEMETOLOGY METHOD 10/23/2024 1:12 PM EDT [facility] Hemoglobin 8.2(L) 11.5 - 16.0 g/dL LAB HEMETOLOGY METHOD 10/23/2024 1:12 PM EDT [facility] Hematocrit 26.9(L) 35.0 - 47.0 % LAB HEMETOLOGY METHOD 10/23/2024 1:12 PM EDT [facility] MCV 90.0 79.0 - 98.0 FL LAB HEMETOLOGY METHOD 10/23/2024 1:12 PM EDT [facility] MCH 27.4 27.0 - 32.0 pcg LAB HEMETOLOGY METHOD 10/23/2024 1:12 PM [facility] MCHC 30.5(L) 32.0 - 37.0 g/dL LAB HEMETOLOGY [facility] RDW 18.8(H) 11.0 - 15.0 % LAB HEMETOLOGY METHOD 10/23/2024 1:12 PM EDT [facility] Platelets 305 130 - 400 K/mcL LAB HEMETOLOGY METHOD 10/23/2024 1:12 PM EDT [facility] MPV 11.7(H) 7.0 - 11.0 FL LAB HEMETOLOGY METHOD 10/23/2024 1:12 PM EDT [facility] NRBC 0.0 <1.0 % LAB HEMETOLOGY METHOD 10/23/2024 1:12 PM EDT [facility] NRBC Absolute 0.00 <0.10 K/mcL LAB HEMETOLOGY METHOD 10/23/2024 1:12 PM EDT [facility] Blood Venous blood specimen / Unknown Venipuncture / Unknown 10/23/2024 9:01 AM EDT 10/23/2024 12:09 PM EDT us Connor Solitario MD LAB BLOOD ORDERABLES Final Result [facility] [address] [place] [address], documented in this encounter Visit Diagnoses Diagnosis Essential (primary) hypertension Unspecified essential hypertension Anemia, unspecified Unspecified atrial fibrillation (CMS/HCC V24, CMS/HCC V28) documented in this encounter Care Teams Gas Engine Mechanic Relationship Specialty Start Date End Date [facility] D[facility] [place] [phone] PCP - General 05/13/20 documented as of this encounter
--- OUTSIDE RECORDS SUMMARY | 2025-03-16 15:19 | XMS_ITS | Encounter Summary ---
Author Organization [facility] Address [address] [place] [address] Care Team Providers Care Division Human Resources Manager Name Role Phone Bridgette Duffy MD Primary Care Provider [phone] [phone] Encounter Details Date Type Department Care Team (Late Contact Info) Description 10/29/2024 Lab Requisition [facility] - Main Lab [address] [facility] [place] [address] Connor Solitario MD [address] [place] [address] Essential (primary) hypertension; Anemia, unspecified Social History [...] Procedure [facility] - [facility] [address] [facility] [address] [place] [address] documented as of this encounter Visit Diagnoses Diagnosis Essential (primary) hypertension Unspecified essential hypertension Anemia, unspecified documented in this encounter Care Teams Division Human Resources Manager Relationship Specialty Start Date End Date Bridgette Duffy MD [address] [place] [address] PCP - General 05/13/20 documented as of this encounter
--- OUTSIDE RECORDS SUMMARY | 2025-03-16 15:19 | XMS_ITS | Encounter Summary ---
Author Organization [facility] Address [address] [place] [address] Care Team Providers Care Financial Services Auditor Name Role Phone Bridgette Duffy MD Primary Care Provider [phone] Encounter Details Date Type Department Care Team (Late Contact Info) Description 10/26/2024 Lab Requisition [facility] - Main Lab [address] [facility] [place] [address] Connor Solitario MD [address] [place] [address] Anemia, unspecified Social History Tobacco Use Types [...] Description 04/04/2025 3:00 PM EDT Ancillary Procedure [facility] - [facility] [address] [facility] [address] [place] [address] documented as of this encounter Procedures Procedure Name Priority Date/Time Associated Diagnosis Comments COMPLETE BLOOD COUNT Routine 10/26/2024 8:54 AM EDT Anemia, unspecified documented in this encounter Results * (ABNORMAL) Complete blood count (10/26/2024 8:54 AM EDT) [facility] WBC 5.5 4.8 - 10.8 K/mcL LAB HEMETOLOGY METHOD 10/26/2024 10:23 AM [facility] RBC 3.00(L) 3.80 - 4.80 M/mcL LAB HEMETOLOGY METHOD 10/26/2024 10:23 AM [facility] Hemoglobin 8.1(L) 11.5 - 16.0 g/dL LAB HEMETOLOGY METHOD 10/26/2024 10:23 AM [facility] Hematocrit 26.8(L) 35.0 - 47.0 % LAB HEMETOLOGY METHOD 10/26/2024 10:23 AM [facility] MCV 90.8 79.0 - 98.0 FL LAB HEMETOLOGY METHOD 10/26/2024 10:23 AM [facility] MCH 27.5 27.0 - 32.0 pcg LAB HEMETOLOGY METHOD 10/26/2024 10:23 AM [facility] MCHC 30.2(L) 32.0 - 37.0 g/dL LAB HEMETOLOGY METHOD 10/26/2024 10:23 AM [facility] RDW 18.8(H) 11.0 - 15.0 % LAB HEMETOLOGY METHOD 10/26/2024 10:23 AM [facility] Platelets 320 130 - 400 K/mcL LAB HEMETOLOGY METHOD 10/26/2024 10:23 AM [facility] MPV 11.5(H) 7.0 - 11.0 FL LAB HEMETOLOGY METHOD 10/26/2024 10:23 AM [facility] NRBC 0.0 <1.0 % LAB HEMETOLOGY METHOD 10/26/2024 10:23 AM [facility] NRBC Absolute 0.00 <0.10 K/mcL LAB HEMETOLOGY METHOD 10/26/2024 10:23 AM EDT [facility] Blood Venous blood specimen / Unknown Venipuncture / Unknown 10/26/2024 8:54 AM EDT 10/26/2024 10:12 AM EDT us Connor Solitario MD LAB BLOOD ORDERABLES Final Result [facility] [address] [place] [address], documented in this encounter Visit Diagnoses Diagnosis Anemia, unspecified documented in this encounter Care Teams Financial Services Auditor Relationship Specialty Start Date End Date Bridgette Duffy [facility] [place] [address] PCP - General 05/13/20 documented as of this encounter
--- OUTSIDE RECORDS SUMMARY | 2025-03-16 15:19 | XMS_ITS | Encounter Summary ---
Author Organization [facility] Address [address] [place] [address] Care Team Providers Care Vice President Of Engineering Name Role Phone Bridgette Duffy MD Primary Care Provider [phone] [phone] Encounter Details Date Type Department Care Team (Late Contact Info) Description 01/13/2025 Lab Requisition [facility] - Main Lab 299 [facility] [place] [address] Sandra Osman PA [address] [place] [address] Encounter for other general examination Social History [...] Description 04/04/2025 3:00 PM EDT Ancillary Procedure [facility] - [address] [facility] [address] [place] [phone] documented as of this encounter Procedures Procedure Name Priority Date/Time Associated Diagnosis Comments COMPLETE BLOOD COUNT Routine 01/13/2025 6:18 AM EDT Encounter for other general examination documented in this encounter Results * (ABNORMAL) Complete blood count (01/13/2025 6:18 AM EDT) [facility] WBC 5.2 4.8 - 10.8 K/mcL LAB HEMETOLOGY METHOD 01/13/2025 10:44 AM [facility] RBC 2.90(L) 3.80 - 4.80 M/mcL LAB HEMETOLOGY METHOD 01/13/2025 10:44 AM [facility] LAB Hemoglobin 7.8(L) 11.5 - 16.0 g/dL LAB HEMETOLOGY METHOD 01/13/2025 10:44 AM [facility] LAB Hematocrit 26.3(L) 35.0 - 47.0 % LAB HEMETOLOGY METHOD 01/13/2025 10:44 AM [facility] LAB MCV 90.4 79.0 - 98.0 FL LAB HEMETOLOGY METHOD 01/13/2025 10:44 AM [facility] MCH 26.8(L) 27.0 - 32.0 pcg LAB HEMETOLOGY METHOD 01/13/2025 10:44 AM [facility] MCHC 29.7(L) 32.0 - 37.0 g/dL LAB HEMETOLOGY METHOD 01/13/2025 10:44 AM [facility] RDW 16.5(H) 11.0 - 15.0 % LAB HEMETOLOGY METHOD 01/13/2025 10:44 AM [facility] Platelets 199 130 - 400 K/mcL LAB HEMETOLOGY METHOD 01/13/2025 10:44 AM [facility] MPV 11.4(H) 7.0 - 11.0 FL LAB HEMETOLOGY METHOD 01/13/2025 10:44 AM [facility] NRBC 0.0 <1.0 % LAB HEMETOLOGY METHOD 01/13/2025 10:44 AM [facility] LAB NRBC Absolute 0.00 <0.10 K/mcL LAB HEMETOLOGY METHOD 01/13/2025 10:44 AM EDT [facility] Blood Venous blood specimen / Unknown Venipuncture / Unknown 01/13/2025 6:18 AM EDT 01/13/2025 9:54 AM EDT us Sandra DAVENPORT LAB BLOOD ORDERABLES Final Resul t [facility] [address] [place] [address], documented in this encounter Visit Diagnoses Diagnosis Encounter for other general examination documented in this encounter Care Teams Vice President Of Engineering Relationship Specialty Start Date End Date Bridgette Duffy MD [address] [place] [phone] PCP - General 05/13/20 documented as of this encounter
--- OUTSIDE RECORDS SUMMARY | 2025-03-16 15:19 | XMS_ITS | Encounter Summary ---
Author Organization [facility] Address [address] [place] [address] Care Team Providers Care Material Flow Engineer Name Role Phone Bridgette Duffy MD Primary Care Provider [phone] [phone] Encounter Details Date Type Department Care Team (Late st Contact Info) Description 10/21/2024 Lab Requisition [facility] - Main Lab 299 [facility] [place] [address] Connor Solitario MD [address] [place] [id number] Essential (primary) hypertension; Unspecified atrial fibrillation (CMS/HCC [...] Description 04/04/2025 3:00 PM EDT Ancillary Procedure [facility] - [address] [facility] [address] [place] [phone] documented as of this encounter Procedures Procedure Name Priority Date/Time Associated Diagnosis Comments COMPLETE BLOOD COUNT Routine 10/21/2024 8:22 AM EDT Essential (primary) hypertension Unspecified atrial fibrillation (CMS/HCC V24, CMS/HCC V28) Anemia, unspecified COMPREHENSIVE METABOLIC PANEL Routine 10/21/2024 8:22 AM EDT Essential (primary) hypertension Unspecified atrial fibrillation (CMS/HCC V24, [facility]/HCC V28) Anemia, unspecified documented in this encounter Results * (ABNORMAL) Comprehensive metabolic panel (10/21/2024 8:22 AM EDT) Sodium 139 133 - 145 mmol/L LAB CHEMISTRY METHOD 10/21/2024 12:06 PM [facility] Potassium 4.3 3.5 - 5.5 mmol/L LAB CHEMISTRY METHOD 10/21/2024 12:06 PM [facility] Chloride 107 96 - 110 mmol/L LAB CHEMISTRY METHOD 10/21/2024 12:06 PM [facility] CO2 28 21 - 32 mmol/L LAB CHEMISTRY METHOD 10/21/2024 12:06 PM [facility] Anion Gap 4 3 - 11 LAB CHEMISTRY METHOD 10/21/2024 12:06 PM [facility] Glucose 105(H) 70 - 100 mg/dL LAB CHEMISTRY METHOD 10/21/2024 12:06 PM [facility] BUN 17 5 - 25 mg/dL LAB CHEMISTRY METHOD 10/21/2024 12:06 PM [facility] Creatinine 0.83 0.50 - 1.10 mg/dL LAB CHEMISTRY METHOD 10/21/2024 12:06 PM [facility] eGFR 70 >=60 mL/min/1. 73m2 LAB CHEMISTRY METHOD 10/21/2024 12:06 PM [facility] LAB Comment:Calculation based on the Chronic Kidney Disease Epidemiology Collaboration (CKD-EPI) equation refit without adjustment for race. BUN/Creatinine Ratio 20.5 LAB CHEMISTRY METHOD 10/21/2024 12:06 PM [facility] Calcium 9.0 8.5 - 10.5 mg/dL LAB CHEMISTRY METHOD 10/21/2024 12:06 PM [facility] AST (SGOT) 14 10 - 42 unit/L LAB CHEMISTRY METHOD 10/21/2024 12:06 PM [facility] ALT (SGPT) 17 10 - 60 unit/L LAB CHEMISTRY METHOD 10/21/2024 12:06 PM [facility] Alkaline Phosphatase 64 42 - 121 unit/L LAB CHEMISTRY METHOD 10/21/2024 12:06 PM [facility] Total Protein 5.6(L) 6.0 - 8.0 g/dL LAB CHEMISTRY METHOD 10/21/2024 12:06 PM [facility] Albumin 2.8(L) 3.2 - 5.0 g/dL LAB CHEMISTRY METHOD 10/21/2024 12:06 PM [facility] Total Bilirubin 0.3 0.0 - 1.4 mg/dL LAB CHEMISTRY METHOD 10/21/2024 12:06 PM [facility] Blood Venous blood specimen / Unknown Venipuncture / Unknown 10/21/2024 8:22 AM EDT 10/21/2024 10:38 AM EDT us Connor Solitario MD LAB BLOOD ORDERABLES Final Result [facility] [address] [place] [address], * (ABNORMAL) Complete blood count (10/21/2024 8:22 AM EDT) WBC 8.6 4.8 - 10.8 K/mcL LAB HEMETOLOGY METHOD 10/21/2024 11:44 AM EDT [facility] RBC 2.70(L) 3.80 - 4.80 M/mcL LAB HEMETOLOGY METHOD 10/21/2024 11:44 AM [facility] Hemoglobin 7.3(L) 11.5 - 16.0 g/dL LAB HEMETOLOGY METHOD 10/21/2024 11:44 AM [facility] Hematocrit 24.3(L) 35.0 - 47.0 % LAB HEMETOLOGY METHOD 10/21/2024 11:44 AM [facility] MCV 89.0 79.0 - 98.0 FL LAB HEMETOLOGY METHOD 10/21/2024 11:44 AM [facility] MCH 26.7(L) 27.0 - 32.0 pcg LAB HEMETOLOGY METHOD 10/21/2024 11:44 AM [facility] MCHC 30.0(L) 32.0 - 37.0 g/dL LAB HEMETOLOGY METHOD 10/21/2024 11:44 AM [facility] RDW 18.6(H) 11.0 - 15.0 % LAB HEMETOLOGY METHOD 10/21/2024 11:44 AM [facility] Platelets 240 130 - 400 K/mcL LAB HEMETOLOGY METHOD 10/21/2024 11:44 AM [facility] MPV 11.8(H) 7.0 - 11.0 FL LAB HEMETOLOGY METHOD 10/21/2024 11:44 AM [facility] NRBC 0.0 <1.0 % LAB HEMETOLOGY METHOD 10/21/2024 11:44 AM [facility] NRBC Absolute 0.00 <0.10 K/mcL LAB HEMETOLOGY METHOD 10/21/2024 11:44 AM [facility] Blood Venous blood specimen / Unknown Venipuncture / Unknown 10/21/2024 8:22 AM EDT 10/21/2024 10:38 AM EDT us Connor Solitario MD LAB BLOOD ORDERABLES Final Result [facility] LAB [address] [place] [address], documented in this encounter Visit Diagnoses Diagnosis Essential (primary) hypertension Unspecified essential hypertension Unspecified atrial fibrillation (CMS/HCC V24, CMS/HCC V28) Anemia, unspecified documented in this encounter Care Teams Material Flow Engineer Relationship Specialty Start Date End Date Bridgette Duffy [facility] [place] [phone] PCP - General 05/13/20 documented as of this encounter
--- OUTSIDE RECORDS SUMMARY | 2025-03-16 15:19 | XMS_ITS | Encounter Summary ---
Author Organization [facility] Address [address] [place] [address] Care Team Providers Care Mastic Floor Layer Name Role Phone Bridgette Duffy MD Primary Care Provider [phone] Encounter Details Date Type Department Care Team (Late Contact Info) Description 01/18/2025 Lab Requisition [facility] - Main Lab 299 [facility] [place] [address] Shahbaz Resendiz PA [address] [facility] [address] [place] [address] Encounter for other general examination Social History [...] Description 04/04/2025 3:00 PM EDT Ancillary Procedure [facility] - [address] [facility] [address] [place] [phone] documented as of this encounter Procedures Procedure Name Priority Date/Time Associated Diagnosis Comments COMPLETE BLOOD COUNT Routine 01/18/2025 6:18 AM EDT Encounter for other general examination BASIC METABOLIC PANEL Routine 01/18/2025 6:18 AM EDT Encounter for other general examination documented in this encounter Results * (ABNORMAL) Complete blood count (01/18/2025 6:18 AM EDT) [facility] Signature WBC 6.7 4.8 - 10.8 K/mcL [...] [facility] [address] [place] [address], * Basic metabolic panel (01/18/2025 6:18 AM [...] EDT 01/18/2025 8:41 AM EDT us Shahbaz DAVENOPRT LAB BLOOD ORDERABLES Final R esult [facility] [address] [place] [address], documented in this encounter Visit Diagnoses Diagnosis Encounter for other general examination documented in this encounter Care Teams Mastic Floor Layer Relationship Specialty Start Date End Date Bridgette Duffy MD [address] [place] [phone] PCP - General 05/13/20 documented as of this encounter
--- OUTSIDE RECORDS SUMMARY | 2025-03-16 15:19 | XMS_ITS | Clinical Summary ---
Author Organization [facility] Address [address] [place] [address] Care Team Providers Care Enamel Finisher Name Role Phone Unavailable Primary Care Provider [...] this topic Medical Devices Implanted Type Area Dental Resident Device Identifier Shelf Expiration Date Model / Serial / Lot Device Clsur Watchman Flx Magda 27mm Bsci-Prnt [id number] - [id number] Implanted:Qty: 1 on 06/03/2023 by Alexandro Llanes MD at [facility] [place] [place] and Med Left: Heart The [employer] JOSE RAFAEL 03/01/2026 [id number] / / [id number] Description:Implanted in lef t atrial appendage. Advance Directives For more information, please contact: [phone] Documents on File Type Date Recorded Patient Admin Prog Coord Expl anation Advance Directive and Living Will [...]
--- OUTSIDE RECORDS SUMMARY | 2025-03-16 15:19 | XMS_ITS | Encounter Summary ---
Author Organization [facility] Address [address] [place] [address] Care Team Providers Care Guest Experience Manager Name Role Phone Bridgette Duffy MD Primary Care Provider +1 [phone] Encounter Details Date Type Department Care Team (Late Contact Info) Description 01/15/2025 Lab Requisition [facility] - Main Lab 299 [facility] [place] [address] Sandra Osman PA [address] [place] [address] Encounter for other general examination Social History [...] 04/04/2025 3:00 PM EDT Ancillary Procedure [facility] - [address] [facility] [address] [place] [phone] documented as of this encounter Procedures Procedure Name Priority Date/Time Associated Diagnosis Comments COMPLETE BLOOD COUNT Routine 01/15/2025 6:10 AM EDT Encounter for other general examination documented in this encounter Results * (ABNORMAL) Complete blood count (01/15/2025 6:10 AM EDT) [facility] WBC 6.2 4.8 - 10.8 K/mcL LAB HEMETOLOGY METHOD 01/15/2025 11:43 AM [facility] RBC 2.90(L) 3.80 - 4.80 M/mcL LAB HEMETOLOGY METHOD 01/15/2025 11:43 AM [facility] Hemoglobin 7.9(L) 11.5 - 16.0 g/dL LAB HEMETOLOGY METHOD 01/15/2025 11:43 AM [facility] LAB Hematocrit 26.3(L) 35.0 - 47.0 % LAB HEMETOLOGY METHOD 01/15/2025 11:43 AM [facility] LAB MCV 90.7 79.0 - 98.0 FL LAB HEMETOLOGY METHOD 01/15/2025 11:43 AM [facility] LAB MCH 27.2 27.0 - 32.0 pcg LAB HEMETOLOGY METHOD 01/15/2025 11:43 AM [facility] LAB MCHC 30.0(L) 32.0 - 37.0 g/dL LAB HEMETOLOGY METHOD 01/15/2025 11:43 AM [facility] LAB RDW 16.7(H) 11.0 - 15.0 % LAB HEMETOLOGY METHOD 01/15/2025 11:43 AM [facility] LAB Platelets 206 130 - 400 K/mcL LAB HEMETOLOGY METHOD 01/15/2025 11:43 AM [facility] LAB MPV 11.5(H) 7.0 - 11.0 FL LAB HEMETOLOGY METHOD 01/15/2025 11:43 AM [facility] LAB NRBC 0.0 <1.0 % LAB HEMETOLOGY METHOD 01/15/2025 11:43 AM [facility] LAB NRBC Absolute 0.00 <0.10 K/[facility] LAB HEMETOLOGY METHOD 01/15/2025 11:43 AM EDT [facility] Blood Venous blood specimen / Unknown Venipuncture / Unknown 01/15/2025 6:10 AM EDT 01/15/2025 10:08 AM EDT us Sandra DAVENPORT LAB BLOOD ORDERABLES Final Resul t [facility] [address] [place] [address], documented in this encounter Visit Diagnoses Diagnosis Encounter for other general examination documented in this encounter Care Teams Guest Experience Manager Relationship Specialty Start Date End Date Bridgette Duffy MD [facility] [place] [phone] PCP - General 05/13/20 documented as of this encounter
--- OUTSIDE RECORDS SUMMARY | 2025-03-16 15:19 | XMS_ITS | Encounter Summary ---
Author Organization [facility] Address [address] [place] [address] Care Team Providers Care Food Service Utility Worker Name Role Phone Bridgette Duffy MD Primary Care Provider +1 [phone] Encounter Details Date Type Department Care Team (Late st Contact Info) Description 01/07/2025 Lab Requisition [facility] Lab 299 [facility] [place] [address] Rylee Menchaca NP [address] [place] [phone] Encounter for other general examination Social History [...] Description 04/04/2025 3:00 PM EDT Ancillary Procedure [facility] - [address] [facility] [address] [place] [address] documented as of this encounter [...] CBC auto differential (01/07/2025 5:49 AM EDT) [facility] Signature WBC 7.9 4.8 - 10.8 K/mcL LAB HEMETOLOGY METHOD 01/07/2025 9:05 AM [facility] LAB RBC 3.10(L) 3.80 - 4.80 M/mcL LAB HEMETOLOGY METHOD 01/07/2025 9:05 AM [facility] LAB Hemoglobin 8.3(L) 11.5 - 16.0 g/dL LAB HEMETOLOGY METHOD 01/07/2025 9:05 AM [facility] LAB Hematocrit 27.3(L) 35.0 - 47.0 % LAB HEMETOLOGY METHOD 01/07/2025 9:05 AM [facility] LAB MCV 88.6 79.0 - 98.0 FL LAB HEMETOLOGY METHOD 01/07/2025 9:05 AM [facility] LAB MCH 26.9(L) 27.0 - 32.0 pcg LAB HEMETOLOGY METHOD 01/07/2025 9:05 AM [facility] LAB MCHC 30.4(L) 32.0 - 37.0 g/dL LAB HEMETOLOGY METHOD 01/07/2025 9:05 AM [facility] LAB RDW 16.6(H) 11.0 - 15.0 % LAB HEMETOLOGY METHOD 01/07/2025 9:05 AM [facility] LAB Platelets 197 130 - 400 K/mcL LAB HEMETOLOGY METHOD 01/07/2025 9:05 AM [facility] LAB MPV 11.5(H) 7.0 - 11.0 FL LAB HEMETOLOGY METHOD 01/07/2025 9:05 AM [facility] LAB NRBC 0.0 <1.0 % LAB HEMETOLOGY METHOD 01/07/2025 9:05 AM [facility] LAB NRBC Absolute 0.00 <0.10 K/mcL LAB HEMETOLOGY METHOD 01/07/2025 9:05 AM [facility] LAB Neutrophils Relative 79.1 % LAB HEMETOLOGY METHOD 01/07/2025 9:05 AM [facility] Lymphocytes Relative 9.0 % LAB HEMETOLOGY METHOD 01/07/2025 9:05 AM [facility] Monocytes Relative 8.5 % LAB HEMETOLOGY METHOD 01/07/2025 9:05 AM [facility] Eosinophils Relative 2.5 % LAB HEMETOLOGY METHOD 01/07/2025 9:05 AM [facility] Basophils Relative 0.4 % LAB HEMETOLOGY METHOD 01/07/2025 9:05 AM [facility] Immature Granulocytes Relative 0.5 % LAB HEMETOLOGY METHOD 01/07/2025 9:05 AM [facility] Neutrophils Absolute 6.25 1.50 - 7.00 K/mcL LAB HEMETOLOGY METHOD 01/07/2025 9:05 AM [facility] Lymphocytes Absolute 0.71(L) 1.00 - 5.00 K/mcL LAB HEMETOLOGY METHOD 01/07/2025 9:05 AM [facility] Monocytes Absolute 0.67 0.20 - 1.00 K/mcL LAB HEMETOLOGY METHOD 01/07/2025 9:05 AM [facility] LAB Eosinophils Absolute 0.20 0.00 - 0.50 K/mcL LAB HEMETOLOGY METHOD 01/07/2025 9:05 AM EDT [facility] Basophils Absolute 0.03 0.00 - 0.20 K/mcL LAB HEMETOLOGY METHOD 01/07/2025 9:05 AM EDT [facility] Immature Granulocytes Absolute 0.04(H) 0.00 - 0.03 K/mcL LAB HEMETOLOGY METHOD 01/07/2025 9:05 AM EDT [facility] Blood Venous blood specimen / Unknown Venipuncture / Unknown 01/07/2025 5:49 AM EDT 01/07/2025 8:38 AM EDT [facility] LAB BLOOD ORDERABLES Final Resul t Performing Organization Address [facility] Co de Phone Number [facility] [address] [place] [address], [place] [phone] * Magnesium (01/07/2025 5:49 AM EDT) Pathologist [facility] Magnesium 2.1 1.9 - 2.6 mg/dL LAB CHEMISTRY METHOD 01/07/2025 9:28 AM EDT [facility] Blood Venous blood specimen / Unknown Venipuncture / Unknown 01/07/2025 5:49 AM EDT 01/07/2025 8:38 AM EDT [facility] LAB BLOOD ORDERABLES Final Resul t Performing Organization Address City/[facility]/ZIP Co de Phone Number [facility] [address] [place] [address], [place] [phone] * (ABNORMAL) Comprehensive metabolic panel (01/07/2025 5:49 AM EDT) Sodium 139 133 - 145 mmol/L LAB CHEMISTRY METHOD 01/07/2025 9:29 AM EDT [facility] Potassium 4.3 3.5 - 5.5 mmol/L LAB CHEMISTRY METHOD 01/07/2025 9:29 AM EDT [facility] Chloride 105 96 - 110 mmol/L LAB CHEMISTRY METHOD 01/07/2025 9:29 AM [facility] CO2 30 21 - 32 mmol/L LAB CHEMISTRY METHOD 01/07/2025 9:29 AM [facility] Anion Gap 4 3 - 11 LAB CHEMISTRY METHOD 01/07/2025 9:29 AM [facility] LAB Glucose 91 70 - 100 mg/dL LAB CHEMISTRY METHOD 01/07/2025 9:29 AM [facility] BUN 22 5 - 25 mg/dL LAB CHEMISTRY METHOD 01/07/2025 9:29 AM [facility] LAB Creatinine 0.99 0.50 - 1.10 mg/dL LAB CHEMISTRY METHOD 01/07/2025 9:29 AM [facility] LAB eGFR 57(L) >=60 mL/min/1. 73m2 LAB CHEMISTRY METHOD 01/07/2025 9:29 AM [facility] LAB Comment:Calculation based on the Chronic Kidney Disease Epidemiology Collaboration (CKD-EPI) equation refit without adjustment for race. BUN/Creatinine Ratio 22.2 LAB CHEMISTRY METHOD 01/07/2025 9:29 AM [facility] LAB Calcium 9.0 8.5 - 10.5 mg/dL LAB CHEMISTRY METHOD 01/07/2025 9:29 AM [facility] LAB AST (SGOT) 7(L) 10 - 42 unit/L LAB CHEMISTRY METHOD 01/07/2025 9:29 AM [facility] ALT (SGPT) 16 10 - 60 unit/L LAB CHEMISTRY METHOD 01/07/2025 9:29 AM [facility] LAB Alkaline Phosphatase 65 42 - 121 unit/L LAB CHEMISTRY METHOD 01/07/2025 9:29 AM [facility] Total Protein 5.8(L) 6.0 - 8.0 g/dL LAB CHEMISTRY METHOD 01/07/2025 9:29 AM EDT [facility] Albumin 2.8(L) 3.2 - 5.0 g/dL LAB CHEMISTRY METHOD 01/07/2025 9:29 AM EDT [facility] Total Bilirubin 0.3 0.0 - 1.4 mg/dL LAB CHEMISTRY METHOD 01/07/2025 9:29 AM EDT [facility] Blood Venous blood specimen / Unknown Venipuncture / Unknown 01/07/2025 5:49 AM EDT 01/07/2025 8:38 AM EDT Rylee Menchaca NP LAB BLOOD ORDERABLES Final Resul t [facility] [address] [place] [address], documented in this encounter Visit Diagnoses Diagnosis Encounter for other general examination documented in this encounter Care Teams Food Service Utility Worker Relationship Specialty Start Date End Date Bridgette Duffy [place] [facility] [place] [phone] PCP - General 05/13/20 documented as of this encounter
--- OUTSIDE RECORDS SUMMARY | 2025-03-16 15:19 | XMS_ITS | Clinical Summary ---
Author Organization [facility] Address [address] [place] [address] Care Team Providers Care Sales Support Rep Name Role Phone Unavailable Primary Care Provider [...]
--- OUTSIDE RECORDS SUMMARY | 2025-03-16 15:19 | XMS_ITS | Encounter Summary ---
Author Organization [facility] Address [address] [place] [address] Care Team Providers Care Poultry Farm Laborer Name Role Phone Bridgette Duffy MD Primary Care Provider +1 [phone] Encounter Details Date Type Department Care Team (Late Contact Info) Description 10/24/2024 Lab Requisition [facility] - Main Lab 299 [facility] [place] [address] Connor Solitario MD [address] [place] [phone] Anemia, unspecified Social History Tobacco Use Types [...] Description 04/04/2025 3:00 PM EDT Ancillary Procedure [facility] [address] [facility] [address] [place] [address] documented as of this encounter Procedures Procedure Name Priority Date/Time Associated Diagnosis Comments COMPLETE BLOOD COUNT Routine 10/25/2024 4:48 AM EDT Anemia, unspecified documented in this encounter Results * (ABNORMAL) Complete blood count (10/25/2024 4:48 AM EDT) [facility] WBC 5.9 4.8 - 10.8 K/mcL LAB HEMETOLOGY METHOD 10/25/2024 8:54 AM [facility] LAB RBC 2.60(L) 3.80 - 4.80 M/mcL LAB HEMETOLOGY [facility]24 [facility] Hemoglobin 6.9(L) 11.5 - 16.0 g/dL LAB HEMETOLOGY METHOD 10/25/2024 8:54 AM [facility] LAB Hematocrit 23.2(L) 35.0 - 47.0 % LAB HEMETOLOGY METHOD 10/25/2024 8:54 AM [facility] LAB MCV 90.3 79.0 - 98.0 FL LAB HEMETOLOGY METHOD 10/25/2024 8:54 AM [facility] LAB MCH 26.8(L) 27.0 - 32.0 pcg LAB HEMETOLOGY METHOD 10/25/2024 8:54 AM [facility] LAB MCHC 29.7(L) 32.0 - 37.0 g/dL LAB HEMETOLOGY METHOD 10/25/2024 8:54 AM [facility] LAB RDW 18.4(H) 11.0 - 15.0 % LAB HEMETOLOGY METHOD 10/25/2024 8:54 AM [facility] LAB Platelets 272 130 - 400 K/mcL LAB HEMETOLOGY METHOD 10/25/2024 8:54 AM [facility] LAB MPV 11.5(H) 7.0 - 11.0 FL LAB HEMETOLOGY METHOD 10/25/2024 8:54 AM [facility] LAB NRBC 0.0 <1.0 % LAB HEMETOLOGY METHOD 10/25/2024 8:54 AM [facility] LAB NRBC Absolute 0.00 <0.10 K/[facility] LAB HEMETOLOGY METHOD 10/25/2024 8:54 AM EDT [facility] LAB Blood Venous blood specimen / Unknown Venipuncture / Unknown 10/25/2024 4:48 AM EDT 10/25/2024 8:28 AM EDT us Connor Solitario MD LAB BLOOD ORDERABLES Final Result [facility] LAB [address] [place] [address], documented in this encounter Visit Diagnoses Diagnosis Anemia, unspecified documented in this encounter Care Teams Poultry Farm Laborer Relationship Specialty Start Date End Date Bridgette Duffy MD [address] [place] [phone] PCP - General 05/13/20 documented as of this encounter
== END 2025-03-16 14:14 | disposition home or self-care (01) ==
LOC: HO.US 14:13
PROVIDERS: Visit Provider Urology
DX: N20.0 Calculus of kidney (principal)
CPT/HCPCS: 76775

== ENCOUNTER 2025-03-20 13:44 | Outpatient (AMB) | payer MEDICARE, SELFPAY ==
--- NOTE | 2025-03-20 13:43 | MHC.OFFVIS ---
Intake Visit Reasons: eswl follow up with ultrasound Intake Note: Patient is present for Post-Op ESWL Urology Rx:none Blood Thinners:none Imaging done : ultrasound 03/17/25 Cafe Operator Required: No Accompanied by: Self / Same As Patient Allergies amoxicillin (From Augmentin) Allergy (Mild, Verified 03/20/25 13:44) Nausea clavulanic acid (From Augmentin) Allergy (Mild, Verified 03/20/25 13:44) Nausea HPI Comments Details: Ernestina is a pleasant female. She is a patient of . She is seen for the following urologic conditions - nephrolithiasis Follow-up right ESWL Minimal issues Ultrasound shows small fragments right side with resolution of hydro nephrosis Creatinine 0.9 At this point minimal symptoms would prefer follow-up with KUB in six-month Nephrolithiasis Seen in the emergency room recently with bilateral stones - and pain on right side Imaging - 12/13 moderate right hydronephrosis secondary to a 10 mm UPJ calculus. Smaller nonobstructing right renal calculi are noted measuring up to 5 mm in size. Again seen is a 14 mm calcification in the left renal pelvis with moderate hydronephrosis Intervention - 02/12 right [facility] History Presence of Watchman left atrial appendage closure device Osteoarthritis Breast cancer Nephrolithiasis Asthma Aortic atherosclerosis Anxiety Anemia Incarcerated femoral hernia HTN (hypertension) GERD (gastroesophageal reflux disease) Persistent atrial fibrillation Surgical History History of radiofrequency ablation (RFA) procedure for cardiac arrhythmia Hx of appendectomy Hx of hysterectomy History of lumpectomy of left breast Hx of bilateral cataract extraction History of esophagogastroduodenoscopy (EGD) History of femoral hernia repair S/P cardiac pacemaker procedure History of surgery on left wrist Social History Household Members: Spouse Housing: Condominium Do you presently have visiting nurse or other home services: No Alcohol intake: former Patient Tobacco Use Status: Former Tobacco user Tobacco use type: Cigarette Advance Directives Date on File: 01/06/25 service: No Current occupational status: retired Current occupation: right hand dominant Review of Systems Const Denies chills and Denies fever(s) Card Reports no additional complaints and Denies syncope Resp Denies cough GI Denies abdominal pain and Denies heartburn Reports as per HPI and Denies change in libido Neuro Denies syncope Psych Denies change in libido Endo Denies change in libido Physical Exam Const General: cooperative, healthy appearing, comfortable and no acute distress Orientation/consciousness: patient oriented x3 HEENT Face and sinus: Yes normal facial exam Mouth: moist mucous membranes Neck Neck: Yes normal visual inspection, Yes full ROM and Yes trachea midline Chest Chest palpation & inspection: normal inspection of the chest Resp Effort & Inspection: normal respiratory effort, able to speak in complete sentences and no respiratory distress GI Inspection: Yes normal to inspection Back/Spine/Pelvis Cervical Spine: normal cervical lordosis Thoracic/Lumbar Spine: thoracic and lumbar spine normal to inspection Skin General skin exam: no rashes or lesions noted Neuro General: patient oriented x3, gait normal, tone normal and moves all extremities Extrem General: Yes normal to inspection and Yes capillary refill normal Assessment & Plan Assessment & Plan (1) Nephrolithiasis: Code(s): N20.0 - Calculus of kidney Category: Medical Plan Six-month follow-up KUB Orders: Orders XR KUB 6 Months N20.0 - Calculus of kidney Patient Instructions: This note is constructed using voice recognition software. While every effort has been made to ensure accuracy automobile and property underwriter errors may have been included. Imaging studies, laboratory and physical exam results were discussed and reviewed in detail. No major barriers to patient understanding were identified. An opportunity to ask questions regarding the treatment plan was provided. All questions were answered. The patient expressed understanding and agreement with the above treatment plan. The patient is aware they should contact our office by phone for worsening of their current condition or the appearance of new urologic symptoms. Compliance is encouraged with any medications and followup testing that is ordered. It is a privilege to participate in the urologic care of your patient. If you have any questions or concerns regarding treatment for the above conditions, or other urologic issues, please do not hesitate to contact me. The office telephone contact is [phone]. Sincerely, Dr Juan Grant MD, [place] - Urology Compassionate Specialist Care for the Genitourinary System Coding Level of Care Code Est Pt Level 3 (84366) Complex EM visit Add On G2211 Diagnoses Nephrolithiasis N20.0
--- OUTSIDE RECORDS SUMMARY | 2025-03-20 15:03 | XMS_ITS | Encounter Summary ---
Author Organization [facility] Address [address] [place] [address] Care Team Providers Care Tarring Machine Operator Name Role Phone Bridgette Duffy MD Primary Care Provider [phone] [phone] Encounter Details Date Type Department Care Team (Late st Contact Info) Description 10/21/2024 Lab Requisition [facility] - Main Lab 299 [facility] [place] [address] Connor Solitario MD [address] [place] [address] Essential (primary) hypertension; Unspecified atrial fibrillation (CMS/HCC [...] Ancillary Procedure [facility] - [address] [facility] [address] [place] [phone] documented as of this encounter Procedures Procedure Name Priority Date/Time Associated Diagnosis Comments COMPLETE BLOOD COUNT Routine 10/21/2024 8:22 AM EDT Essential (primary) hypertension Unspecified atrial fibrillation (CMS/HCC V24, CMS/HCC V28) Anemia, unspecified COMPREHENSIVE METABOLIC PANEL Routine 10/21/2024 8:22 AM EDT Essential (primary) hypertension Unspecified atrial fibrillation (CMS/HCC V24, [facility]/HCC V28) Anemia, unspecified documented in this encounter Results * (ABNORMAL) Comprehensive metabolic panel (10/21/2024 8:22 AM EDT) Sodium 139 133 - 145 mmol/L LAB CHEMISTRY METHOD 10/21/2024 12:06 PM [facility] Potassium 4.3 3.5 - 5.5 mmol/L LAB CHEMISTRY METHOD 10/21/2024 12:06 PM [facility] Chloride 107 96 - 110 mmol/L LAB CHEMISTRY METHOD 10/21/2024 12:06 PM [facility] CO2 28 21 - 32 mmol/L LAB CHEMISTRY METHOD 10/21/2024 12:06 PM [facility] Anion Gap 4 3 - 11 LAB CHEMISTRY METHOD 10/21/2024 12:06 PM [facility] Glucose 105(H) 70 - 100 mg/dL LAB CHEMISTRY METHOD 10/21/2024 12:06 PM [facility] BUN 17 5 - 25 mg/dL LAB CHEMISTRY METHOD 10/21/2024 12:06 PM [facility] Creatinine 0.83 0.50 - 1.10 mg/dL LAB CHEMISTRY METHOD 10/21/2024 12:06 PM [facility] eGFR 70 >=60 mL/min/1. 73m2 LAB CHEMISTRY METHOD 10/21/2024 12:06 PM [facility] Comment:Calculation based on the Chronic Kidney Disease Epidemiology Collaboration (CKD-EPI) equation refit without adjustment for race. BUN/Creatinine Ratio 20.5 LAB CHEMISTRY METHOD 10/21/2024 12:06 PM [facility] Calcium 9.0 8.5 - 10.5 mg/dL LAB CHEMISTRY METHOD 10/21/2024 12:06 PM [facility] AST (SGOT) 14 10 - 42 unit/L LAB CHEMISTRY METHOD 10/21/2024 12:06 PM [facility] ALT (SGPT) 17 10 - 60 unit/L LAB CHEMISTRY METHOD 10/21/2024 12:06 PM [facility] Alkaline Phosphatase 64 42 - 121 unit/L LAB CHEMISTRY METHOD 10/21/2024 12:06 PM [facility] Total Protein 5.6(L) 6.0 - 8.0 g/dL LAB CHEMISTRY METHOD 10/21/2024 12:06 PM [facility] Albumin 2.8(L) 3.2 - 5.0 g/dL LAB CHEMISTRY METHOD 10/21/2024 12:06 PM [facility] Total Bilirubin 0.3 0.0 - 1.4 mg/dL LAB CHEMISTRY METHOD 10/21/2024 12:06 PM [facility] Blood Venous blood specimen / Unknown Venipuncture / Unknown 10/21/2024 8:22 AM EDT 10/21/2024 10:38 AM EDT us Connor Solitario MD LAB BLOOD ORDERABLES Final Result [facility] [address] [place] [address], * (ABNORMAL) Complete blood count (10/21/2024 8:22 AM EDT) WBC 8.6 4.8 - 10.8 K/mcL LAB HEMETOLOGY METHOD 10/21/2024 11:44 AM EDT [facility] RBC 2.70(L) 3.80 - 4.80 M/mcL LAB HEMETOLOGY METHOD 10/21/2024 11:44 AM [facility] Hemoglobin 7.3(L) 11.5 - 16.0 g/dL LAB HEMETOLOGY METHOD 10/21/2024 11:44 AM [facility] Hematocrit 24.3(L) 35.0 - 47.0 % LAB HEMETOLOGY METHOD 10/21/2024 11:44 AM [facility] MCV 89.0 79.0 - 98.0 FL LAB HEMETOLOGY METHOD 10/21/2024 11:44 AM [facility] MCH 26.7(L) 27.0 - 32.0 pcg LAB HEMETOLOGY METHOD 10/21/2024 11:44 AM [facility] MCHC 30.0(L) 32.0 - 37.0 g/dL LAB HEMETOLOGY METHOD 10/21/2024 11:44 AM [facility] LAB RDW 18.6(H) 11.0 - 15.0 % LAB HEMETOLOGY METHOD 10/21/2024 11:44 AM [facility] Platelets 240 130 - 400 K/mcL LAB HEMETOLOGY METHOD 10/21/2024 11:44 AM [facility] LAB MPV 11.8(H) 7.0 - 11.0 FL LAB HEMETOLOGY METHOD 10/21/2024 11:44 AM [facility] NRBC 0.0 <1.0 % LAB HEMETOLOGY METHOD 10/21/2024 11:44 AM [facility] NRBC Absolute 0.00 <0.10 K/mcL LAB HEMETOLOGY METHOD 10/21/2024 11:44 AM [facility] Blood Venous blood specimen / Unknown Venipuncture / Unknown 10/21/2024 8:22 AM EDT 10/21/2024 10:38 AM EDT us Connor Solitario MD LAB BLOOD ORDERABLES Final Result [facility] [address] [place] [address], documented in this encounter Visit Diagnoses Diagnosis Essential (primary) hypertension Unspecified essential hypertension Unspecified atrial fibrillation (CMS/HCC V24, CMS/HCC V28) Anemia, unspecified documented in this encounter Care Teams Tarring Machine Operator Relationship Specialty Start Date End Date Bridgette Duffy [facility] [place] [phone] PCP - General 05/13/20 documented as of this encounter
--- OUTSIDE RECORDS SUMMARY | 2025-03-20 15:03 | XMS_ITS | Clinical Summary ---
Author Organization [facility] Address [address] [place] [address] Care Team Providers Care Hospitality Ambassador Name Role Phone Unavailable Primary Care Provider [...]
--- OUTSIDE RECORDS SUMMARY | 2025-03-20 15:03 | XMS_ITS | Encounter Summary ---
Author Organization [facility] Address [address] [place] [address] Care Team Providers Care Machine Stone Polisher Apprentice Name Role Phone Bridgette Duffy MD Primary Care Provider [phone] Encounter Details Date Type Department Care Team (Late Contact Info) Description 10/24/2024 Lab Requisition [facility] - Main Lab 299 [facility] [place] [address] Connor Solitario MD [address] [place] [address] Anemia, unspecified Social History Tobacco Use Types [...] Description 04/04/2025 3:00 PM EDT Ancillary Procedure [facility] - [address] [facility] [address] [place] [phone] documented as of this encounter Procedures Procedure Name Priority Date/Time Associated Diagnosis Comments COMPLETE BLOOD COUNT Routine 10/25/2024 4:48 AM EDT Anemia, unspecified documented in this encounter Results * (ABNORMAL) Complete blood count (10/25/2024 4:48 AM EDT) [facility] WBC 5.9 4.8 - 10.8 K/mcL LAB HEMETOLOGY METHOD 10/25/2024 8:54 AM [facility] RBC 2.60(L) 3.80 - 4.80 M/mcL LAB HEMETOLOGY METHOD [facility]24 [facility] Hemoglobin 6.9(L) 11.5 - 16.0 g/dL LAB HEMETOLOGY METHOD 10/25/2024 8:54 AM [facility] LAB Hematocrit 23.2(L) 35.0 - 47.0 % LAB HEMETOLOGY METHOD 10/25/2024 8:54 AM [facility] LAB MCV 90.3 79.0 - 98.0 FL LAB HEMETOLOGY METHOD 10/25/2024 8:54 AM [facility] LAB MCH 26.8(L) 27.0 - 32.0 pcg LAB HEMETOLOGY METHOD 10/25/2024 8:54 AM [facility] LAB MCHC 29.7(L) 32.0 - 37.0 g/dL LAB HEMETOLOGY METHOD 10/25/2024 8:54 AM [facility] LAB RDW 18.4(H) 11.0 - 15.0 % LAB HEMETOLOGY METHOD 10/25/2024 8:54 AM [facility] LAB Platelets 272 130 - 400 K/mcL LAB HEMETOLOGY METHOD 10/25/2024 8:54 AM [facility] LAB MPV 11.5(H) 7.0 - 11.0 FL LAB HEMETOLOGY METHOD 10/25/2024 8:54 AM [facility] LAB NRBC 0.0 <1.0 % LAB HEMETOLOGY METHOD 10/25/2024 8:54 AM [facility] LAB NRBC Absolute 0.00 <0.10 K/[facility] LAB HEMETOLOGY METHOD 10/25/2024 8:54 AM EDT [facility] Blood Venous blood specimen / Unknown Venipuncture / Unknown 10/25/2024 4:48 AM EDT 10/25/2024 8:28 AM EDT us Connor Solitario MD LAB BLOOD ORDERABLES Final Result [facility] [address] [place] [address], documented in this encounter Visit Diagnoses Diagnosis Anemia, unspecified documented in this encounter Care Teams Machine Stone Polisher Apprentice Relationship Specialty Start Date End Date Bridgette Duffy MD [address] [place] [phone] PCP - General 05/13/20 documented as of this encounter
--- OUTSIDE RECORDS SUMMARY | 2025-03-20 15:03 | XMS_ITS | Encounter Summary ---
Author Organization [facility] Address [address] [place] [address] Care Team Providers Care Television Producer Name Role Phone Bridgette Duffy MD Primary Care Provider [phone] Encounter Details Date Type Department Care Team (Late Contact Info) Description 10/26/2024 Lab Requisition [facility] - Main Lab 299 [facility] [place] [address] Connor Solitario MD [address] [place] [phone] Anemia, unspecified Social History Tobacco Use Types [...] Description 04/04/2025 3:00 PM EDT Ancillary Procedure [facility] - [facility] [address] [facility] [address] [place] [address] documented as of this encounter Procedures Procedure Name Priority Date/Time Associated Diagnosis Comments COMPLETE BLOOD COUNT Routine 10/26/2024 8:54 AM EDT Anemia, unspecified documented in this encounter Results * (ABNORMAL) Complete blood count (10/26/2024 8:54 AM EDT) [facility] WBC 5.5 4.8 - 10.8 K/mcL LAB HEMETOLOGY METHOD 10/26/2024 10:23 AM [facility] RBC 3.00(L) 3.80 - 4.80 M/mcL LAB HEMETOLOGY METHOD 10/26/2024 10:23 AM [facility] Hemoglobin 8.1(L) 11.5 - 16.0 g/dL LAB HEMETOLOGY METHOD 10/26/2024 10:23 AM [facility] Hematocrit 26.8(L) 35.0 - 47.0 % LAB HEMETOLOGY METHOD 10/26/2024 10:23 AM [facility] MCV 90.8 79.0 - 98.0 FL LAB HEMETOLOGY METHOD 10/26/2024 10:23 AM [facility] MCH 27.5 27.0 - 32.0 pcg LAB HEMETOLOGY METHOD 10/26/2024 10:23 AM [facility] MCHC 30.2(L) 32.0 - 37.0 g/dL LAB HEMETOLOGY METHOD 10/26/2024 10:23 AM [facility] RDW 18.8(H) 11.0 - 15.0 % LAB HEMETOLOGY METHOD 10/26/2024 10:23 AM [facility] Platelets 320 130 - 400 K/mcL LAB HEMETOLOGY METHOD 10/26/2024 10:23 AM [facility] MPV 11.5(H) 7.0 - 11.0 FL LAB HEMETOLOGY METHOD 10/26/2024 10:23 AM [facility] NRBC 0.0 <1.0 % LAB HEMETOLOGY METHOD 10/26/2024 10:23 AM [facility] NRBC Absolute 0.00 <0.10 K/mcL LAB HEMETOLOGY METHOD 10/26/2024 10:23 AM EDT [facility] Blood Venous blood specimen / Unknown Venipuncture / Unknown 10/26/2024 8:54 AM EDT 10/26/2024 10:12 AM EDT us Connor Solitario MD LAB BLOOD ORDERABLES Final Result [facility] [address] [place] [address], documented in this encounter Visit Diagnoses Diagnosis Anemia, unspecified documented in this encounter Care Teams Television Producer Relationship Specialty Start Date End Date [facility] Duffy [facility] [place] [phone] PCP - General 05/13/20 documented as of this encounter
--- OUTSIDE RECORDS SUMMARY | 2025-03-20 15:03 | XMS_ITS | Encounter Summary ---
Author Organization [facility] Address [address] [place] [address] Care Team Providers Care Reception Interviewer Name Role Phone Bridgette Duffy MD Primary Care Provider [phone] Encounter Details Date Type Department Care Team (Late Contact Info) Description 01/13/2025 Lab Requisition [facility] - Main Lab 299 [facility] [place] [address] Sandra Osman PA [address] [place] [phone] Encounter for other general examination Social History [...] Description 04/04/2025 3:00 PM EDT Ancillary Procedure [facility] - [address] [facility] [address] [place] [phone] documented as of this encounter Procedures Procedure Name Priority Date/Time Associated Diagnosis Comments COMPLETE BLOOD COUNT Routine 01/13/2025 6:18 AM EDT Encounter for other general examination documented in this encounter Results * (ABNORMAL) Complete blood count (01/13/2025 6:18 AM EDT) [facility] WBC 5.2 4.8 - 10.8 K/mcL LAB HEMETOLOGY METHOD 01/13/2025 10:[address] [facility] RBC 2.90(L) 3.80 - 4.80 M/mcL LAB HEMETOLOGY METHOD 01/13/2025 10:[address] [facility] Hemoglobin 7.8(L) 11.5 - 16.0 g/dL LAB HEMETOLOGY METHOD 01/13/2025 10:[address] [facility] Hematocrit 26.3(L) 35.0 - 47.0 % LAB HEMETOLOGY METHOD 01/13/2025 10:[address] [facility] MCV 90.4 79.0 - 98.0 FL LAB HEMETOLOGY METHOD 01/13/2025 10:[address] [facility] MCH 26.8(L) 27.0 - 32.0 pcg LAB HEMETOLOGY METHOD 01/13/2025 10:[address] [facility] MCHC 29.7(L) 32.0 - 37.0 g/dL LAB HEMETOLOGY METHOD 01/13/2025 10:[address] [facility] RDW 16.5(H) 11.0 - 15.0 % LAB HEMETOLOGY METHOD 01/13/2025 10:[address] [facility] Platelets 199 130 - 400 K/mcL LAB HEMETOLOGY METHOD 01/13/2025 10:[address] [facility] MPV 11.4(H) 7.0 - 11.0 FL LAB HEMETOLOGY METHOD 01/13/2025 10:[address] [facility] NRBC 0.0 <1.0 % LAB HEMETOLOGY METHOD 01/13/2025 10:[address] [facility] NRBC Absolute 0.00 <0.10 K/mcL LAB HEMETOLOGY METHOD 01/13/2025 10:44 AM EDT [facility] Blood Venous blood specimen / Unknown Venipuncture / Unknown 01/13/2025 6:18 AM EDT 01/13/2025 9:54 AM EDT us Sandra DAVENPORT LAB BLOOD ORDERABLES Final Resul t [facility] [address] [place] [address], documented in this encounter Visit Diagnoses Diagnosis Encounter for other general examination documented in this encounter Care Teams Reception Interviewer Relationship Specialty Start Date End Date Bridgette Duffy MD [address] [place] [phone] PCP - General 05/13/20 documented as of this encounter
--- OUTSIDE RECORDS SUMMARY | 2025-03-20 15:03 | XMS_ITS | Encounter Summary ---
Author Organization [facility] Address [address] [place] [address] Care Team Providers Care Modeling Manager Name Role Phone Bridgette Duffy MD Primary Care Provider [phone] Encounter Details Date Type Department Care Team (Late st Contact Info) Description 01/07/2025 Lab Requisition [facility] Lab [address] [facility] [place] [address] Rylee Menchaca NP [address] [place] [phone] Encounter for other general examination Social History [...] Description 04/04/2025 3:00 PM EDT Ancillary Procedure [facility] - [address] [facility] [address] [place] [address] documented as of this encounter [...] CBC auto differential (01/07/2025 5:49 AM EDT) [facility] Signature WBC 7.9 4.8 - 10.8 K/mcL LAB HEMETOLOGY METHOD 01/07/2025 9:05 AM [facility] LAB RBC 3.10(L) 3.80 - 4.80 M/mcL LAB HEMETOLOGY METHOD 01/07/2025 9:05 AM [facility] LAB Hemoglobin 8.3(L) 11.5 - 16.0 g/dL LAB HEMETOLOGY METHOD 01/07/2025 9:05 AM [facility] LAB Hematocrit 27.3(L) 35.0 - 47.0 % LAB HEMETOLOGY METHOD 01/07/2025 9:05 AM [facility] LAB MCV 88.6 79.0 - 98.0 FL LAB HEMETOLOGY METHOD 01/07/2025 9:05 AM [facility] LAB MCH 26.9(L) 27.0 - 32.0 pcg LAB HEMETOLOGY METHOD 01/07/2025 9:05 AM [facility] LAB MCHC 30.4(L) 32.0 - 37.0 g/dL LAB HEMETOLOGY METHOD 01/07/2025 9:05 AM [facility] LAB RDW 16.6(H) 11.0 - 15.0 % LAB HEMETOLOGY METHOD 01/07/2025 9:05 AM [facility] LAB Platelets 197 130 - 400 K/mcL LAB HEMETOLOGY METHOD 01/07/2025 9:05 AM [facility] LAB MPV 11.5(H) 7.0 - 11.0 FL LAB HEMETOLOGY METHOD 01/07/2025 9:05 AM [facility] LAB NRBC 0.0 <1.0 % LAB HEMETOLOGY METHOD 01/07/2025 9:05 AM [facility] LAB NRBC Absolute 0.00 <0.10 K/mcL LAB HEMETOLOGY METHOD 01/07/2025 9:05 AM [facility] LAB Neutrophils Relative 79.1 % LAB HEMETOLOGY METHOD 01/07/2025 9:05 AM [facility] LAB Lymphocytes Relative 9.0 % LAB HEMETOLOGY METHOD 01/07/2025 9:05 AM [facility] LAB Monocytes Relative 8.5 % LAB HEMETOLOGY METHOD 01/07/2025 9:05 AM [facility] LAB Eosinophils Relative 2.5 % LAB HEMETOLOGY METHOD 01/07/2025 9:05 AM [facility] LAB Basophils Relative 0.4 % LAB HEMETOLOGY METHOD 01/07/2025 9:05 AM [facility] LAB Immature Granulocytes Relative 0.5 % LAB HEMETOLOGY METHOD 01/07/2025 9:05 AM [facility] LAB Neutrophils Absolute 6.25 1.50 - 7.00 K/mcL LAB HEMETOLOGY METHOD 01/07/2025 9:05 AM [facility] LAB Lymphocytes Absolute 0.71(L) 1.00 - 5.00 K/mcL LAB HEMETOLOGY METHOD 01/07/2025 9:05 AM [facility] LAB Monocytes Absolute 0.67 0.20 - 1.00 K/mcL LAB HEMETOLOGY METHOD 01/07/2025 9:05 AM [facility] LAB Eosinophils Absolute 0.20 0.00 - 0.50 K/mcL LAB HEMETOLOGY METHOD 01/07/2025 9:05 AM EDT [facility] Basophils Absolute 0.03 0.00 - 0.20 K/mcL LAB HEMETOLOGY METHOD 01/07/2025 9:05 AM EDT [facility] Immature Granulocytes Absolute 0.04(H) 0.00 - 0.03 K/mcL LAB HEMETOLOGY METHOD 01/07/2025 9:05 AM EDT [facility] Blood Venous blood specimen / Unknown Venipuncture / Unknown 01/07/2025 5:49 AM EDT 01/07/2025 8:38 AM EDT [facility] LAB BLOOD ORDERABLES Final Resul t Performing Organization Address [facility] Co de Phone Number [facility] [address] [place] [address], [place] [phone] * Magnesium (01/07/2025 5:49 AM EDT) Pathologist [facility] Magnesium 2.1 1.9 - 2.6 mg/dL LAB CHEMISTRY METHOD 01/07/2025 9:28 AM EDT [facility] Blood Venous blood specimen / Unknown Venipuncture / Unknown 01/07/2025 5:49 AM EDT 01/07/2025 8:38 AM EDT [facility] LAB BLOOD ORDERABLES Final Resul t Performing Organization Address City/[facility]/ZIP Co de Phone Number [facility] [address] [place] [address], [place] [phone] * (ABNORMAL) Comprehensive metabolic panel (01/07/2025 5:49 AM EDT) Sodium 139 133 - 145 mmol/L LAB CHEMISTRY METHOD 01/07/2025 9:29 AM EDT [facility] Potassium 4.3 3.5 - 5.5 mmol/L LAB CHEMISTRY METHOD 01/07/2025 9:29 AM EDT [facility] Chloride 105 96 - 110 mmol/L LAB CHEMISTRY METHOD 01/07/2025 9:29 AM [facility] CO2 30 21 - 32 mmol/L LAB CHEMISTRY METHOD 01/07/2025 9:29 AM [facility] Anion Gap 4 3 - 11 LAB CHEMISTRY METHOD 01/07/2025 9:29 AM [facility] LAB Glucose 91 70 - 100 mg/dL LAB CHEMISTRY METHOD 01/07/2025 9:29 AM [facility] BUN 22 5 - 25 mg/dL LAB CHEMISTRY METHOD 01/07/2025 9:29 AM [facility] Creatinine 0.99 0.50 - 1.10 mg/dL LAB CHEMISTRY METHOD 01/07/2025 9:29 AM [facility] LAB eGFR 57(L) >=60 mL/min/1. 73m2 LAB CHEMISTRY METHOD 01/07/2025 9:29 AM [facility] LAB Comment:Calculation based on the Chronic Kidney Disease Epidemiology Collaboration (CKD-EPI) equation refit without adjustment for race. BUN/Creatinine Ratio 22.2 LAB CHEMISTRY METHOD 01/07/2025 9:29 AM [facility] LAB Calcium 9.0 8.5 - 10.5 mg/dL LAB CHEMISTRY METHOD 01/07/2025 9:29 AM [facility] LAB AST (SGOT) 7(L) 10 - 42 unit/L LAB CHEMISTRY METHOD 01/07/2025 9:29 AM [facility] LAB ALT (SGPT) 16 10 - 60 unit/L LAB CHEMISTRY METHOD 01/07/2025 9:29 AM [facility] Alkaline Phosphatase 65 42 - 121 unit/L LAB CHEMISTRY METHOD 01/07/2025 9:29 AM [facility] Total Protein 5.8(L) 6.0 - 8.0 g/dL LAB CHEMISTRY METHOD 01/07/2025 9:29 AM EDT [facility] Albumin 2.8(L) 3.2 - 5.0 g/dL LAB CHEMISTRY METHOD 01/07/2025 9:29 AM EDT [facility] Total Bilirubin 0.3 0.0 - 1.4 mg/dL LAB CHEMISTRY METHOD 01/07/2025 9:29 AM EDT [facility] Blood Venous blood specimen / Unknown Venipuncture / Unknown 01/07/2025 5:49 AM EDT 01/07/2025 8:38 AM EDT Rylee Menchaca NP LAB BLOOD ORDERABLES Final Resul t [facility] [address] [place] [address], documented in this encounter Visit Diagnoses Diagnosis Encounter for other general examination documented in this encounter Care Teams Modeling Manager Relationship Specialty Start Date End Date Bridgette Duffy [facility] [place] [phone] PCP - General 05/13/20 documented as of this encounter
--- OUTSIDE RECORDS SUMMARY | 2025-03-20 15:03 | XMS_ITS | Encounter Summary ---
Author Organization [facility] Address [address] [place] [address] Care Team Providers Care Brim And Crown Presser Name Role Phone Bridgette Duffy MD Primary Care Provider [phone] Encounter Details Date Type Department Care Team (Late Contact Info) Description 01/18/2025 Lab Requisition [facility] - Main Lab [address] [facility] [place] [address] Shahbaz Resendiz PA [address] [facility] [address] [place] [address] Encounter for other general examination Social History [...] Description 04/04/2025 3:00 PM EDT Ancillary Procedure [facility] - [address] [facility] [address] [place] [phone] documented as of this encounter Procedures Procedure Name Priority Date/Time Associated Diagnosis Comments COMPLETE BLOOD COUNT Routine 01/18/2025 6:18 AM EDT Encounter for other general examination BASIC METABOLIC PANEL Routine 01/18/2025 6:18 AM EDT Encounter for other general examination documented in this encounter Results * (ABNORMAL) Complete blood count (01/18/2025 6:18 AM EDT) [facility] Signature WBC 6.7 4.8 - 10.8 K/mcL LAB HEMETOLOGY METHOD 01/18/2025 9:31 AM [facility] RBC 3.00(L) 3.80 - 4.80 M/mcL LAB HEMETOLOGY METHOD 01/18/2025 9:31 AM [facility] LAB Hemoglobin 8.1(L) 11.5 - 16.0 g/dL LAB HEMETOLOGY METHOD 01/18/2025 9:31 AM [facility] LAB Hematocrit 26.3(L) 35.0 - 47.0 % LAB HEMETOLOGY METHOD 01/18/2025 9:31 AM [facility] LAB MCV 88.6 79.0 - 98.0 FL LAB HEMETOLOGY METHOD 01/18/2025 9:31 AM [facility] LAB MCH 27.3 27.0 - 32.0 pcg LAB HEMETOLOGY METHOD 01/18/2025 9:31 AM [facility] LAB MCHC 30.8(L) 32.0 - 37.0 g/dL LAB HEMETOLOGY METHOD 01/18/2025 9:31 AM [facility] RDW 16.9(H) 11.0 - 15.0 % LAB HEMETOLOGY METHOD 01/18/2025 9:31 AM [facility] LAB Platelets 231 130 - 400 K/mcL LAB HEMETOLOGY METHOD 01/18/2025 9:31 AM [facility] MPV 11.3(H) 7.0 - 11.0 FL LAB HEMETOLOGY METHOD 01/18/2025 9:31 AM [facility] NRBC 0.0 <1.0 % LAB HEMETOLOGY METHOD 01/18/2025 9:31 AM [facility] NRBC Absolute 0.00 <0.10 K/mcL LAB HEMETOLOGY METHOD 01/18/2025 9:31 AM [facility] Blood Venous blood specimen / Unknown Venipuncture / Unknown 01/18/2025 6:18 AM EDT 01/18/2025 8:41 AM EDT us Shahbaz DAVENPORT LAB BLOOD ORDERABLES Final R esult [facility] [address] [place] [address], * Basic metabolic panel (01/18/2025 6:18 AM EDT) Sodium 142 133 - 145 mmol/L LAB CHEMISTRY METHOD 01/18/2025 9:45 AM [facility] Potassium 4.9 3.5 - 5.5 mmol/L LAB CHEMISTRY METHOD 01/18/2025 9:45 AM [facility] Chloride 108 96 - 110 mmol/L LAB CHEMISTRY METHOD 01/18/2025 9:45 AM [facility] CO2 30 21 - 32 mmol/L LAB CHEMISTRY METHOD 01/18/2025 9:45 AM [facility] Anion Gap 4 3 - 11 LAB CHEMISTRY METHOD 01/18/2025 9:45 AM [facility] Glucose 83 70 - 100 mg/dL LAB CHEMISTRY METHOD 01/18/2025 9:45 AM [facility] BUN 23 5 - 25 mg/dL LAB CHEMISTRY METHOD 01/18/2025 9:45 AM [facility] Creatinine 0.86 0.50 - 1.10 mg/dL LAB CHEMISTRY METHOD 01/18/2025 9:45 AM [facility] eGFR 67 >=60 mL/min/1. 73m2 LAB CHEMISTRY METHOD 01/18/2025 9:45 AM EDT [facility] Comment:Calculation based on the Chronic Kidney Disease Epidemiology Collaboration (CKD-EPI) equation refit without adjustment for race. BUN/Creatinine Ratio 26.7 LAB CHEMISTRY METHOD 01/18/2025 9:45 AM EDT [facility] Calcium 9.3 8.5 - 10.5 mg/dL LAB CHEMISTRY METHOD 01/18/2025 9:45 AM EDT [facility] Blood Venous blood specimen / Unknown Venipuncture / Unknown 01/18/2025 6:18 AM EDT 01/18/2025 8:41 AM EDT us Shahbaz DAVENPORT LAB BLOOD ORDERABLES Final R esult [facility] [address] [place] [address], documented in this encounter Visit Diagnoses Diagnosis Encounter for other general examination documented in this encounter Care Teams Brim And Crown Presser Relationship Specialty Start Date End Date Bridgette Duffy MD [address] [place] [phone] PCP - General 05/13/20 documented as of this encounter
--- OUTSIDE RECORDS SUMMARY | 2025-03-20 15:03 | XMS_ITS | Encounter Summary ---
Author Organization [facility] Address [address] [place] [address] Care Team Providers Care Snack Bar Cook Name Role Phone Bridgette Duffy MD Primary Care Provider [phone] Encounter Details Date Type Department Care Team (Late Contact Info) Description 10/29/2024 Lab Requisition [facility] - Main Lab [address] [facility] [place] [address] Connor Solitario MD [address] [place] [phone] Essential (primary) hypertension; Anemia, unspecified Social History [...] Description 04/04/2025 3:00 PM EDT Ancillary Procedure [facility] - [facility] [address] [facility] [address] [place] [address] documented as of this encounter Visit Diagnoses Diagnosis Essential (primary) hypertension Unspecified essential hypertension Anemia, unspecified documented in this encounter Care Teams Snack Bar Cook Relationship Specialty Start Date End Date Bridgette Duffy MD [address] [place] [address] PCP - General 05/13/20 documented as of this encounter
--- OUTSIDE RECORDS SUMMARY | 2025-03-20 15:03 | XMS_ITS | Clinical Summary ---
Author Organization [address] [place] [address] [place] [phone] Phone Care Team Providers Care Painter Apprentice Name Role Phone Bridgette Duffy MD Primary Care Provider [phone] Allergies Active Allergy Reactions Criticality Noted Date [...] she agreed to have this done at [facility]. She will agree to continue anticoagulation and we can reevaluate whether that is necessary to continue long-term based on her [id number] score and any evidence of recurrent arrhythmia. [...] Department Care Team Description 01/18/2025 Lab Requisition [facility] - Main Lab [address] [facility] [place] [address] Shahbaz Resendiz PA Encounter for other general examination 01/15/2025 Lab Requisition [facility] - Main Lab [address] [place] [phone] Sandra Osman PA Encounter for other general examination 01/13/2025 Lab Requisition [facility] - Main Lab [address] [place] [phone] Sandra Osman PA Encounter for other general examination 01/07/2025 Lab Requisition [facility] - Main Lab [address] [place] [phone] Rylee Menchaca NP Encounter for other general examination 01/02/2025 8:40 AM EDT Office Visit [facility] Cardiology [facility] [address] [place] [phone] Isaura Shelby NP Longstanding persistent atrial fibrillation (CMS/HCC V24, CMS/HCC V28) (Primary Dx) 12/29/2024 Telephone [facility]iology [facility] [address] [facility] [address] [place] [address] Bridgette Duffy MD 12/18/2024 7:50 AM EDT Ancillary Procedure [facility] Cardiology [facility] [address] [place] [phone] from Last 3 Months Immunizations Immunization Administration Dates Next Due Pfizer SARS-CoV-2 COVID-19, mRNA, LNP-S, preservative free 04/24/2021,08/16/2020,07/26/2020 Surgical History Surgery Date Site/Laterality Comments OTHER SURGICAL HISTORY 10/14/2015 PROCEDURE: [place] ENDOSCOPY UPPER SMALL INTESTINE CATARACT EXTRACTION PROCEDURE: HISTORICAL CATARACT REMOVAL; COMMENT: 12/19/14, 10/31/14 OTHER SURGICAL HISTORY 01/19/2014 PROCEDURE: HISTORY OTHER BREAST LUMPECTOMY 11/14/2013 PROCEDURE: HISTORICAL BREAST LUMPECTOMY OTHER SURGICAL HISTORY 09/25/2011 PROCEDURE: PFT FULL (60 MINUTES) OTHER SURGICAL HISTORY 07/26/2009 PROCEDURE: [place] ECHO TRANSTHORAC R-T 2D W/WO M-MODE REC COMP OTHER SURGICAL HISTORY 07/26/2009 PROCEDURE: OUTSIDE HOLTER MONITOR OTHER SURGICAL HISTORY 06/25/2008 PROCEDURE: PFT FULL (60 MINUTES) APPENDECTOMY PROCEDURE: HISTORICAL APPENDECTOMY HYSTERECTOMY PROCEDURE: HISTORICAL HYSTERECTOMY OTHER SURGICAL HISTORY 01/19/2014 PROCEDURE: HISTORY OTHER; COMMENT: [place] lymph node biopsy Medical History Medical History [...] Procedure [facility] - [facility] [address] [facility] [address] [place] [address] Health Maintenance Due Date Last Done Comments [...] this topic Medical Devices Implanted Type Area Educational Fundraising Director Device Identifier Shelf Expiration Date Model / Serial / Lot Bsci-Crm [id number] Implanted: (Quantity not on file) Cardiac Pacemaker [employer]HY[employer] MGMT L110 / [id number] / Device Clsur Watchman Flx Magda 27mm Bsci-Prnt [id number] Implanted:Qty : 1 on 06/03/2023 by Alexandro Llanes MD Left: Heart Consumr JOSE RAFAEL 03/01/2026 [id number] / / [id number] Description:Implanted in lef t atrial appendage. Procedures [...] of3 resultswithin the time period is included. [facility] Signature WBC 6.7 4.8 - 10.8 [...] R esult [facility] [address] [place] [address], * Basic metabolic panel (01/18/2025 6:18 AM [...] R esult [facility] [address] [place] [address], * (ABNORMAL) CBC auto differential (01/07/2025 5:49 AM EDT) WBC 7.9 4.8 - 10.8 K/mcL LAB HEMETOLOGY METHOD 01/07/2025 9:05 AM [facility] RBC 3.10(L) 3.80 - 4.80 M/mcL LAB HEMETOLOGY METHOD 01/07/2025 9:05 AM [facility] Hemoglobin 8.3(L) 11.5 - 16.0 g/dL LAB HEMETOLOGY METHOD 01/07/2025 9:05 AM [facility] Hematocrit 27.3(L) 35.0 - 47.0 % LAB HEMETOLOGY METHOD 01/07/2025 9:05 AM [facility] MCV 88.6 79.0 - 98.0 FL LAB HEMETOLOGY METHOD 01/07/2025 9:05 AM [facility] MCH 26.9(L) 27.0 - 32.0 pcg LAB HEMETOLOGY METHOD 01/07/2025 9:05 AM [facility] MCHC 30.4(L) 32.0 - 37.0 g/dL LAB HEMETOLOGY METHOD 01/07/2025 9:05 AM [facility] RDW 16.6(H) 11.0 - 15.0 % LAB HEMETOLOGY METHOD 01/07/2025 9:05 AM [facility] Platelets 197 130 - 400 K/mcL LAB HEMETOLOGY METHOD 01/07/2025 9:05 AM [facility] MPV 11.5(H) 7.0 - 11.0 FL LAB HEMETOLOGY METHOD 01/07/2025 9:05 AM [facility] NRBC 0.0 <1.0 % LAB HEMETOLOGY METHOD 01/07/2025 9:05 AM [facility] NRBC Absolute 0.00 <0.10 K/mcL LAB HEMETOLOGY METHOD 01/07/2025 9:05 AM [facility] Neutrophils Relative 79.1 % LAB HEMETOLOGY METHOD 01/07/2025 9:05 AM [facility] Lymphocytes Relative 9.0 % LAB HEMETOLOGY METHOD 01/07/2025 9:05 AM [facility] Monocytes Relative 8.5 % LAB HEMETOLOGY METHOD 01/07/2025 9:05 AM [facility] Eosinophils Relative 2.5 % LAB HEMETOLOGY METHOD 01/07/2025 9:05 AM [facility] Basophils Relative 0.4 % LAB HEMETOLOGY METHOD 01/07/2025 9:05 AM [facility] Immature Granulocytes Relative 0.5 % LAB HEMETOLOGY METHOD 01/07/2025 9:05 AM EDT [facility] Neutrophils Absolute 6.25 1.50 - 7.00 K/mcL LAB HEMETOLOGY METHOD 01/07/2025 9:05 AM EDT [facility] Lymphocytes Absolute 0.71(L) 1.00 - 5.00 K/mcL LAB HEMETOLOGY METHOD 01/07/2025 9:05 AM EDT [facility] Monocytes Absolute 0.67 0.20 - 1.00 K/mcL LAB HEMETOLOGY METHOD 01/07/2025 9:05 AM EDT [facility] Eosinophils Absolute 0.20 0.00 - 0.50 K/mcL LAB HEMETOLOGY METHOD 01/07/2025 9:05 AM EDT [facility] Basophils Absolute 0.03 0.00 - 0.20 K/mcL LAB HEMETOLOGY METHOD 01/07/2025 9:05 AM EDT [facility] Immature Granulocytes Absolute 0.04(H) 0.00 - 0.03 K/mcL LAB HEMETOLOGY METHOD 01/07/2025 9:05 AM EDT [facility] Blood Venous blood specimen / Unknown Venipuncture / Unknown 01/07/2025 5:49 AM EDT 01/07/2025 8:38 AM EDT us Rylee Menchaca [facility] LAB BLOOD ORDERABLES Final Resul t [facility] [address] [place] [address], * Magnesium (01/07/2025 5:49 AM EDT) Magnesium 2.1 1.9 - 2.6 mg/dL LAB CHEMISTRY METHOD 01/07/2025 9:28 AM EDT [facility] Blood Venous blood specimen / Unknown Venipuncture / Unknown 01/07/2025 5:49 AM EDT 01/07/2025 8:38 AM EDT us Rylee Menchaca [employer] LAB BLOOD ORDERABLES Final Resul t [facility] [address] [place] [address], * (ABNORMAL) Comprehensive metabolic panel (01/07/2025 5:49 AM EDT) Sodium 139 133 - 145 mmol/L LAB CHEMISTRY METHOD 01/07/2025 9:29 AM [facility] Potassium 4.3 3.5 - 5.5 mmol/L LAB CHEMISTRY METHOD 01/07/2025 9:29 AM [facility] Chloride 105 96 - 110 mmol/L LAB CHEMISTRY METHOD 01/07/2025 9:29 AM [facility] CO2 30 21 - 32 mmol/L LAB CHEMISTRY METHOD 01/07/2025 9:29 AM [facility] Anion Gap 4 3 - 11 LAB CHEMISTRY METHOD 01/07/2025 9:29 AM [facility] Glucose 91 70 - 100 mg/dL LAB CHEMISTRY METHOD 01/07/2025 9:29 AM [facility] BUN 22 5 - 25 mg/dL LAB CHEMISTRY METHOD 01/07/2025 9:29 AM [facility] Creatinine 0.99 0.50 - 1.10 mg/dL LAB CHEMISTRY METHOD 01/07/2025 9:29 AM [facility] eGFR 57(L) >=60 mL/min/1. 73m2 LAB CHEMISTRY METHOD 01/07/2025 9:29 AM [facility] Comment:Calculation based on the Chronic Kidney Disease Epidemiology Collaboration (CKD-EPI) equation refit without adjustment for race. BUN/Creatinine Ratio 22.2 LAB CHEMISTRY METHOD 01/07/2025 9:29 AM [facility] Calcium 9.0 8.5 - 10.5 mg/dL LAB CHEMISTRY METHOD 01/07/2025 9:29 AM [facility] AST (SGOT) 7(L) 10 - 42 unit/L LAB CHEMISTRY METHOD 01/07/2025 9:29 AM [facility] ALT (SGPT) 16 10 - 60 unit/L LAB CHEMISTRY METHOD 01/07/2025 9:29 AM [facility] Alkaline Phosphatase 65 42 - 121 unit/L LAB CHEMISTRY METHOD 01/07/2025 9:29 AM [facility] Total Protein 5.8(L) 6.0 - 8.0 g/dL LAB CHEMISTRY METHOD 01/07/2025 9:29 AM [facility] Albumin 2.8(L) 3.2 - 5.0 g/dL LAB CHEMISTRY METHOD 01/07/2025 9:29 AM [facility] Total Bilirubin 0.3 0.0 - 1.4 mg/dL LAB CHEMISTRY METHOD 01/07/2025 9:29 AM [facility] Blood Venous blood specimen / Unknown Venipuncture / Unknown 01/07/2025 5:49 AM EDT 01/07/2025 8:38 AM EDT Rylee Menchaca NP LAB BLOOD ORDERABLES Final Resul t [facility] [address] [place] [address], * Cardiac device check - Remote- MURJ (12/18/2024 7:48 AM EDT) Date Time Interrogation Session [id number] CV DEVICE CHECK Type Interrogation Session Remote Scheduled CV DEVICE CHECK Implantable Pulse Generator Educational Fundraising Director BSX CV DEVICE CHECK Implantable Pulse Generator Type IPG CV DEVICE CHECK Implantable Pulse Generator Model L110 CV DEVICE CHECK Implantable Pulse Generator Serial Number [id number] CV DEVICE CHECK Implantable Pulse Generator Implant [...] Result from Last 3 Months Insurance MEDICARE [facility] Care Teams Painter Apprentice Relationship Specialty Start Date End Date Bridgette Duffy MD [address] [place] [phone] PCP - General 05/13/20
--- OUTSIDE RECORDS SUMMARY | 2025-03-20 15:03 | XMS_ITS | Encounter Summary ---
Author Organization [facility] Address [address] [place] [address] Phone Care Team Providers Care Welding Machine Operator Electro Gas Name Role Phone Pcp, Unknown Primary Care Provider Unavailabl e Reason for Referral * Occupational Therapy (Within 1 month) - Closed Specialty Diagnoses / Procedures Referred By Jt t Referred To Contact Occupational Therapy Diagnoses Encounter for rehabilitation Bobo Elam MD [address] [place] [address] [place] [address] Phone: tel: fax: [facility] [address] [place] [address] Phone: tel: Referral ID Status Reason Start Date Expiration Date Visits Re quested Visits Authorized [id number] Closed 08/19/2023 08/18/2024 99 99 Encounter Details Date Type Department Care Team (Latest Contact Info) Description 08/19/2023 Transcribe Orders [facility] [address] [place] [address] Bobo Elam MD [address] [place] [address] [place] [id number] Encounter for rehabilitation (Primary Dx) Social History [...] Diagnoses Orde r Schedule Ambulatory referral to [facility] Occupational Therapy Outpatient Referral Routine Encounter for rehabilitation Ordered: 08/19/2023 documented as of this encounter Visit Diagnoses Diagnosis Encounter for rehabilitation- Primary documented in this encounter Care Teams Welding Machine Operator Electro Gas Relationship Specialty Start Date End Date Pcp, Unknown PCP - General 02/24/23 documented as of this encounter Additional Source Comments The information contained in this document represents components of the legal health record. It is not the complete legal health record.[facility]
--- OUTSIDE RECORDS SUMMARY | 2025-03-20 15:03 | XMS_ITS | Clinical Summary ---
Author Organization [facility] Address [address] [place] [address] Care Team Providers Care Radar Engineering Teacher Name Role Phone Unavailable Primary Care Provider [...] this topic Medical Devices Implanted Type Area Inspector Final Assembly Conveyor Line Device Identifier Shelf Expiration Date Model / Serial / Lot Device Clsur Watchman Flx Magda 27mm Bsci-Prnt [id number] - [id number] Implanted:Qty: 1 on 06/03/2023 by Alexandro Llanes MD at [facility] [place] [facility] Left: Heart [employer] JOSE RAFAEL 03/01/2026 [id number] / / [id number] Description:Implanted in lef t atrial appendage. Advance Directives For more information, please contact: [phone] Documents on File Type Date Recorded Patient Street Commissioner Expl anation Advance Directive and Living Will [...]
--- OUTSIDE RECORDS SUMMARY | 2025-03-20 15:03 | XMS_ITS | Encounter Summary ---
Author Organization [facility] Address [address] [place] [address] Care Team Providers Care Director Retail Brand Development Name Role Phone Bridgette Duffy MD Primary Care Provider [phone] Encounter Details Date Type Department Care Team (Late st Contact Info) Description 10/23/2024 Lab Requisition [facility] - Main Lab [address] [facility] [place] [address] Connor Solitario MD [address] [place] [address] Essential (primary) hypertension; Anemia, unspecified; Unspecified atrial [...] Procedure [facility] [address] [facility] [address] [place] [phone] documented as of this encounter Procedures Procedure [...] mmol/L LAB CHEMISTRY METHOD 10/23/2024 1:52 PM [facility] Potassium 4.1 3.5 - 5.5 mmol/L LAB CHEMISTRY METHOD 10/23/2024 1:52 PM [facility] Chloride 108 96 - 110 mmol/L LAB CHEMISTRY METHOD 10/23/2024 1:52 PM [facility] CO2 25 21 - 32 mmol/L LAB CHEMISTRY METHOD 10/23/2024 1:52 PM [facility] Anion Gap 6 3 - 11 LAB CHEMISTRY METHOD 10/23/2024 1:52 PM [facility] Glucose 93 70 - 100 mg/dL LAB CHEMISTRY METHOD 10/23/2024 1:52 PM [facility] BUN 11 5 - 25 mg/dL LAB CHEMISTRY METHOD 10/23/2024 1:52 PM [facility] Creatinine 0.71 0.50 - 1.10 mg/dL LAB CHEMISTRY METHOD 10/23/2024 1:52 PM [facility] eGFR 84 >=60 mL/min/1. 73m2 LAB CHEMISTRY METHOD 10/23/2024 1:52 PM [facility] Comment:Calculation based on the Chronic Kidney Disease Epidemiology Collaboration (CKD-EPI) equation refit without adjustment for race. BUN/Creatinine Ratio 15.5 LAB CHEMISTRY METHOD 10/23/2024 1:52 PM [facility] Calcium 9.0 8.5 - 10.5 mg/dL LAB CHEMISTRY METHOD 10/23/2024 1:52 PM EDT [facility] Blood Venous blood specimen / Unknown Venipuncture / Unknown 10/23/2024 9:01 AM EDT 10/23/2024 12:09 PM EDT us Connor Solitario MD LAB BLOOD ORDERABLES Final Result [facility] [address] [place] [address], [place] [phone] * (ABNORMAL) Complete blood count (10/23/2024 9:01 AM EDT) WBC 5.4 4.8 - 10.8 K/mcL LAB HEMETOLOGY METHOD 10/23/2024 1:12 PM EDT [facility] RBC 3.00(L) 3.80 - 4.80 M/mcL LAB HEMETOLOGY METHOD 10/23/2024 1:12 PM EDT [facility] Hemoglobin 8.2(L) 11.5 - 16.0 g/dL LAB HEMETOLOGY METHOD 10/23/2024 1:12 PM EDT [facility] Hematocrit 26.9(L) 35.0 - 47.0 % LAB HEMETOLOGY METHOD 10/23/2024 1:12 PM EDT [facility] MCV 90.0 79.0 - 98.0 FL LAB HEMETOLOGY METHOD 10/23/2024 1:12 PM EDT [facility] MCH 27.4 27.0 - 32.0 pcg LAB HEMETOLOGY METHOD 10/23/2024 1:12 PM [facility] MCHC 30.5(L) 32.0 - 37.0 g/dL LAB HEMETOLOGY METHOD [facility]24 [facility] RDW 18.8(H) 11.0 - 15.0 % LAB HEMETOLOGY METHOD 10/23/2024 1:12 PM EDT [facility] Platelets 305 130 - 400 K/mcL LAB HEMETOLOGY METHOD 10/23/2024 1:12 PM EDT [facility] MPV 11.7(H) 7.0 - 11.0 FL LAB HEMETOLOGY METHOD 10/23/2024 1:12 PM EDT [facility] NRBC 0.0 <1.0 % LAB HEMETOLOGY METHOD 10/23/2024 1:12 PM EDT [facility] NRBC Absolute 0.00 <0.10 K/mcL LAB HEMETOLOGY METHOD 10/23/2024 1:12 PM EDT [facility] Blood Venous blood specimen / Unknown Venipuncture / Unknown 10/23/2024 9:01 AM EDT 10/23/2024 12:09 PM EDT us Connor Solitario MD LAB BLOOD ORDERABLES Final Result [facility] [address] [place] [address], documented in this encounter Visit Diagnoses Diagnosis Essential (primary) hypertension Unspecified essential hypertension Anemia, unspecified Unspecified atrial fibrillation (CMS/HCC V24, CMS/HCC V28) documented in this encounter Care Teams Director Retail Brand Development Relationship Specialty Start Date End Date Bridget[facility] Duffy [facility] [place] [phone] PCP - General 05/13/20 documented as of this encounter
--- OUTSIDE RECORDS SUMMARY | 2025-03-20 15:03 | XMS_ITS | Clinical Summary ---
Author Organization [facility] Address [address] [address] Phone Care Team Providers Care Pattern Illustrator Name Role Phone Pcp, Unknown Primary Care [...] file Insurance MEDICARE PART A & B [employer] MEDEX SUPPLEMENT MEDICARE PART A & B [employer] MEDEX SUPPLEMENT MEDICARE PART A & B [employer] MEDEX SUPPLEMENT MEDICARE PART A & B [employer] MEDEX SUPPLEMENT MEDICARE PART A & B [employer] MEDEX SUPPLEMENT MEDICARE PART A & B [employer] MEDEX SUPPLEMENT Care Teams Pattern Illustrator Relationship Specialty Start Date End Date Pcp, Unknown PCP - General 02/24/23 Additional Source Comments The information contained in this document represents components of the legal health record. It is not the complete legal health record.[facility]
--- OUTSIDE RECORDS SUMMARY | 2025-03-20 15:03 | XMS_ITS | Encounter Summary ---
Author Organization [facility] Address [address] [place] [address] Care Team Providers Care Tub Operator Name Role Phone Bridgette Duffy MD Primary Care Provider [phone] Encounter Details Date Type Department Care Team (Late Contact Info) Description 01/15/2025 Lab Requisition [facility] - Main Lab [address] [facility] [place] [address] Sandra Osman PA [address] [place] [address] Encounter for other general examination Social History [...] Description 04/04/2025 3:00 PM EDT Ancillary Procedure [facility] - [address] [facility] [address] [place] [phone] documented as of this encounter Procedures Procedure Name Priority Date/Time Associated Diagnosis Comments COMPLETE BLOOD COUNT Routine 01/15/2025 6:10 AM EDT Encounter for other general examination documented in this encounter Results * (ABNORMAL) Complete blood count (01/15/2025 6:10 AM EDT) [facility] WBC 6.2 4.8 - 10.8 K/mcL [...] [facility] LAB NRBC Absolute 0.00 <0.10 [facility] LAB HEMETOLOGY METHOD 01/15/2025 11:43 AM EDT [facility] Blood Venous blood specimen / Unknown Venipuncture / Unknown 01/15/2025 6:10 AM EDT 01/15/2025 10:08 AM EDT us Sandra DAVENPORT LAB BLOOD ORDERABLES Final Resul t [facility] [address] [place] [address], documented in this encounter Visit Diagnoses Diagnosis Encounter for other general examination documented in this encounter Care Teams Tub Operator Relationship Specialty Start Date End Date Bridgette Duffy [facility] [place] [address] PCP - General 05/13/20 documented as of this encounter
== END 2025-03-20 14:47 | disposition home or self-care (01) ==
LOC: HO.HUSH 13:45
PROVIDERS: Visit Provider Urology
DX: N20.0 Calculus of kidney (principal)
CPT/HCPCS: 99024

== ENCOUNTER → 2025-03-20 13:44 | Outpatient (BNVA) | payer MEDICARE, SELFPAY | PROVIDERS: Visit Provider Urology | DX: N20.0 Calculus of kidney (principal) | CPT/HCPCS: 99212 ==